=== PATIENT | male | born 1970 | race Two or more races ===

== ENCOUNTER → 2020-02-27 10:43 | Outpatient (BNVA) | payer OTHER, SELFPAY | PROVIDERS: Visit Provider Anesthesiology | DX: E11.610 Type 2 diabetes mellitus with diabetic neuropathic arthropathy (principal); E11.51 Type 2 diabetes mellitus with diabetic peripheral angiopathy without gangrene; M47.812 Spondylosis without myelopathy or radiculopathy, cervical region; M79.7 Fibromyalgia | CPT/HCPCS: 99212 ==

== ENCOUNTER 2020-03-16 15:35 | Outpatient (REF) | payer OTHER, SELFPAY | END 2020-03-16 15:36 | disposition home or self-care (01) | LOC: HO.MRI 15:35 | PROVIDERS: PCP Internal Medicine; Visit Provider Anesthesiology | DX: Z13.89 Encounter for screening for other disorder (principal) ==

== ENCOUNTER 2020-05-10 12:55 | Outpatient (REF) | payer OTHER, SELFPAY ==
--- NOTE | ~2020-05-10 | XR_ITS ---
EXAMINATION: XR HAND, RIGHT XR HAND, LEFT CLINICAL INFORMATION: Bilateral hand pain. COMPARISON: None TECHNIQUE: Each hand is imaged in 3 views. There are a total of 6 views. FINDINGS: Right: There is no fracture, dislocation, destructive process. The bony mineralization is normal. No periarticular demineralization. The carpus shows no joint narrowing or erosive change or chondrocalcinosis. The MCP and interphalangeal joints are unremarkable. Left: There is no fracture, dislocation, destructive process. The bony mineralization is normal. No periarticular demineralization. The carpus shows no joint narrowing or erosive change or chondrocalcinosis. The MCP and interphalangeal joints are unremarkable. XR/XR hand RT min 3V IMPRESSION: Normal bilateral hands.
--- NOTE | ~2020-05-10 | XR_ITS ---
EXAMINATION: XR HAND, RIGHT XR HAND, LEFT CLINICAL INFORMATION: Bilateral hand pain. COMPARISON: None TECHNIQUE: Each hand is imaged in 3 views. There are a total of 6 views. FINDINGS: Right: There is no fracture, dislocation, destructive process. The bony mineralization is normal. No periarticular demineralization. The carpus shows no joint narrowing or erosive change or chondrocalcinosis. The MCP and interphalangeal joints are unremarkable. Left: There is no fracture, dislocation, destructive process. The bony mineralization is normal. No periarticular demineralization. The carpus shows no joint narrowing or erosive change or chondrocalcinosis. The MCP and interphalangeal joints are unremarkable. XR/XR hand LT min 3V IMPRESSION: Normal bilateral hands.
[2020-05-10 14:05] LABS: MANUAL DIFF FLAG NO
[2020-05-10 14:09] LABS: Basophils Absolute Auto 0.1 X10*3/uL (0.0-0.2); Basophils Percent Auto 0.8 % (0-2); Eosinophils Absolute Auto 0.6 X10*3/uL (0.0-0.4); Eosinophils Percent Auto 4.8 % (0-4); Hematocrit 39.7 % (42-52); Hemoglobin 12.5 g/dl (14.0-18.0); Imm Gran Abs Auto 0.07 X10*3/uL (0.00-0.03); Imm Gran Pct Auto 0.6 % (0.0-0.4); Lymphocytes Absolute Auto 2.5 X10*3/uL (1.2-4.9); Lymphocytes Percent Auto 19.5 % (20-40); Mean Corpuscular HGB Conc 31.5 g/dl (31.0-36.0); Mean Corpuscular Hemoglobin 27.7 pg (27.0-33.0); Mean Platelet Volume 10.8 fL (9.4-12.4); Monocytes Absolute Auto 0.7 X10*3/uL (0.1-1.2); Monocytes Percent Auto 5.8 % (2-11); Neutrophils Absolute Auto 8.7 X10*3/uL (2.0-8.3); Neutrophils Percent Auto 68.5 % (45-73); Platelet Count 345 X10*3/uL (160-400); Red Blood Count 4.51 X10*6/uL (4.60-5.80); Red Cell Distribution Width 12.9 % (11.0-16.0); White Blood Count 12.7 X10*3/uL (4.8-10.8)
[2020-05-10 14:43] LABS: Alanine Aminotransferase 19 U/L (0-40); Albumin Level 3.2 g/dL (3.5-5.0); Alkaline Phosphatase 68 U/L (39-117); Anion Gap 15 (12-20); Aspartate Amino Transferase 16 U/L (5-37); Bilirubin Total 0.2 mg/dL (0.0-1.0); Blood Urea Nitrogen 17 mg/dL (9-16); Calcium 8.9 mg/dL (8.4-10.2); Carbon Dioxide 29 mmol/L (22-29); Chloride 102 mmol/L (96-108); Estimated Glomerular Filt Rate > 60; Glucose Random 216 mg/dL (60-115); Potassium 4.5 mmol/L (3.3-5.1); Rheumatoid Factor < 15.0 IU/mL (<15.0); Sodium 141 mmol/L (135-145)
[2020-05-10 15:02] LABS: Erythrocyte Sedimentation Rate 72 MM/HR (0-15)
[2020-05-11 04:56] LABS: HBc Num1 0.04 S/CO (0.00-0.79); Hepatitis A Antibody IgM 0.27 Index (0-0.79); Hepatitis B Core Antibody Nonreactive (Nonreactive); ~HepC Num1 0.07 S/CO (0.00-0.79); ~Hepatitis A Antibody IgM Nonreactive (Nonreactive); ~Hepatitis B Surface Antibody NONREACTIVE (Nonreactive); ~Hepatitis C Antibody Nonreactive (Nonreactive)
[2020-05-11 05:02] LABS: HBsAGNum1 0.18 S/CO (0.00-0.99); Hepatitis B Surface Antigen Negative (Negative)
[2020-05-11 10:07] LABS: Lyme Abs Screen <0.90 index
[2020-05-11 22:17] LABS: Cyclic Citrullinated Peptide <16 UNITS
[2020-05-15 14:01] LABS: Vitamin D 25-OH, D2 <4 ng/mL; Vitamin D 25-OH, D3 9 ng/mL; Vitamin D 25-OH, Total 9 ng/mL (30-100)
== END 2020-05-10 12:56 | disposition home or self-care (01) ==
LOC: HO.LAB 12:55
PROVIDERS: Visit Provider Student in an Organized Health Care Education/Training Program
DX: M25.50 Pain in unspecified joint (principal); F17.210 Nicotine dependence, cigarettes, uncomplicated; Z79.899 Other long term (current) drug therapy
CPT/HCPCS: 36415; 73130; 80053; 82306; 84443; 85025; 85652; 86140; 86200; 86431; 86618; 86704; 86706; 86709; 86803; 87340; 99202

== ENCOUNTER 2020-07-10 06:03 | Outpatient (REF) | payer OTHER, SELFPAY ==
[2020-07-10 11:25] LABS: MANUAL DIFF FLAG NO
[2020-07-10 11:35] LABS: Basophils Absolute Auto 0.1 X10*3/uL (0.0-0.2); Basophils Percent Auto 0.9 % (0-2); Eosinophils Absolute Auto 0.7 X10*3/uL (0.0-0.4); Eosinophils Percent Auto 5.2 % (0-4); Hematocrit 41.6 % (42-52); Imm Gran Pct Auto 0.8 % (0.0-0.4); Lymphocytes Percent Auto 24.1 % (20-40); Mean Corpuscular HGB Conc 31.3 g/dl (31.0-36.0); Mean Corpuscular Hemoglobin 27.4 pg (27.0-33.0); Mean Corpuscular Volume 87.6 fL (80-98); Mean Platelet Volume 11.5 fL (9.4-12.4); Monocytes Absolute Auto 0.8 X10*3/uL (0.1-1.2); Platelet Count 337 X10*3/uL (160-400); Red Blood Count 4.75 X10*6/uL (4.60-5.80); Red Cell Distribution Width 12.9 % (11.0-16.0); White Blood Count 12.6 X10*3/uL (4.8-10.8)
[2020-07-10 11:50] LABS: Alanine Aminotransferase 15 U/L (0-40); Anion Gap 15 (12-20); Aspartate Amino Transferase 15 U/L (5-37); Blood Urea Nitrogen 18 mg/dL (9-16); Calcium 9.4 mg/dL (8.4-10.2); Carbon Dioxide 28 mmol/L (22-29); Chloride 98 mmol/L (96-108); Cholesterol 228 mg/dL; Estimated Glomerular Filt Rate > 60; Glucose Fasting 348 mg/dL (60-99); HDL Cholesterol 27 mg/dL; Potassium 3.9 mmol/L (3.3-5.1); Sodium 137 mmol/L (135-145); Triglycerides 947 mg/dL
== END 2020-07-10 06:04 | disposition home or self-care (01) ==
LOC: HO.HMGCLDS 06:03
PROVIDERS: PCP Internal Medicine; Visit Provider Internal Medicine
DX: E11.65 Type 2 diabetes mellitus with hyperglycemia (principal); E11.40 Type 2 diabetes mellitus with diabetic neuropathy, unspecified; I10 Essential (primary) hypertension; E55.9 Vitamin D deficiency, unspecified; E78.5 Hyperlipidemia, unspecified; S98.139A Complete traumatic amputation of one unspecified lesser toe, initial encounter; Z79.4 Long term (current) use of insulin
CPT/HCPCS: 36415; 80048; 80061; 82306; 84450; 84460; 85025

== ENCOUNTER 2021-02-27 10:35 | Outpatient (REF) | payer OTHER, SELFPAY ==
[2021-02-27 12:12] LABS: Alanine Aminotransferase 19 U/L (0-40); Anion Gap 14 (12-20); Aspartate Amino Transferase 17 U/L (5-37); Blood Urea Nitrogen 19 mg/dL (9-16); Carbon Dioxide 26 mmol/L (22-29); Chloride 104 mmol/L (96-108); Cholesterol 171 mg/dL; Estimated Glomerular Filt Rate > 60; Glucose Fasting 311 mg/dL (60-99); HDL Cholesterol 25 mg/dL; Potassium 4.9 mmol/L (3.3-5.1); Sodium 139 mmol/L (135-145); Triglycerides 415 mg/dL
[2021-02-27 12:35] LABS: Vitamin D 25-OH Total 12.1 ng/mL (>30)
[2021-02-28 10:07] LABS: LDL Cholesterol Direct 68 mg/dL (<100)
== END 2021-02-27 10:36 | disposition home or self-care (01) ==
LOC: HO.HMGCLDS 10:35
PROVIDERS: PCP Internal Medicine; Visit Provider Internal Medicine
DX: E11.40 Type 2 diabetes mellitus with diabetic neuropathy, unspecified (principal); E11.65 Type 2 diabetes mellitus with hyperglycemia; E11.51 Type 2 diabetes mellitus with diabetic peripheral angiopathy without gangrene; E78.2 Mixed hyperlipidemia; I10 Essential (primary) hypertension; E55.9 Vitamin D deficiency, unspecified; Z79.4 Long term (current) use of insulin
CPT/HCPCS: 36415; 80048; 80061; 82306; 83721; 84450; 84460

== ENCOUNTER → 2021-04-17 13:06 | Outpatient (BNVA) | payer OTHER, SELFPAY | PROVIDERS: PCP Internal Medicine; Visit Provider Dietitian, Registered | DX: E11.65 Type 2 diabetes mellitus with hyperglycemia (principal); Z79.4 Long term (current) use of insulin | CPT/HCPCS: 97802 ==

== ENCOUNTER → 2021-07-16 15:22 | Outpatient (BNVA) | payer OTHER, SELFPAY | PROVIDERS: PCP Internal Medicine; Visit Provider Nurse Practitioner Family | DX: M25.50 Pain in unspecified joint (principal); M79.7 Fibromyalgia; E11.40 Type 2 diabetes mellitus with diabetic neuropathy, unspecified; M47.812 Spondylosis without myelopathy or radiculopathy, cervical region; M54.2 Cervicalgia; M62.838 Other muscle spasm; M47.816 Spondylosis without myelopathy or radiculopathy, lumbar region; R29.898 Other symptoms and signs involving the musculoskeletal system | CPT/HCPCS: 99202 ==

== ENCOUNTER → 2021-08-16 11:26 | Outpatient (BNVA) | payer OTHER, SELFPAY | PROVIDERS: PCP Internal Medicine; Visit Provider Internal Medicine Endocrinology, Diabetes & Metabolism | DX: E11.65 Type 2 diabetes mellitus with hyperglycemia (principal); Z79.4 Long term (current) use of insulin | CPT/HCPCS: 82947; 99202 ==

== ENCOUNTER → 2021-08-30 09:33 | Outpatient (BNVA) | payer OTHER, SELFPAY | PROVIDERS: PCP Internal Medicine; Visit Provider Nurse Practitioner Family | DX: M25.50 Pain in unspecified joint (principal); M79.7 Fibromyalgia; E11.40 Type 2 diabetes mellitus with diabetic neuropathy, unspecified; M47.812 Spondylosis without myelopathy or radiculopathy, cervical region; M54.2 Cervicalgia; M62.838 Other muscle spasm; M47.816 Spondylosis without myelopathy or radiculopathy, lumbar region; R29.898 Other symptoms and signs involving the musculoskeletal system | CPT/HCPCS: Q3014 ==

== ENCOUNTER 2021-10-10 10:02 | Outpatient (REF) | payer OTHER, SELFPAY ==
[2021-10-10 12:07] LABS: Alanine Aminotransferase 13 U/L (0-40); Anion Gap 13 (12-20); Aspartate Amino Transferase 15 U/L (5-37); Blood Urea Nitrogen 20 mg/dL (9-16); Calcium 8.8 mg/dL (8.4-10.2); Carbon Dioxide 28 mmol/L (22-29); Chloride 103 mmol/L (96-108); Cholesterol 175 mg/dL; Estimated Glomerular Filt Rate > 60; Glucose Fasting 212 mg/dL (60-99); HDL Cholesterol 29 mg/dL; Potassium 4.5 mmol/L (3.3-5.1); Sodium 139 mmol/L (135-145); Triglycerides 400 mg/dL
[2021-10-10 12:14] LABS: PSA,Total (Free>4and<10) 0.11 ng/mL (0.00-4.00); Vitamin D 25-OH Total 14.1 ng/mL (>30)
[2021-10-10 12:29] LABS: Creatinine Urine 95.93 mg/dL
[2021-10-10 12:33] LABS: Folate 10.3 ng/mL (> or = 4.0); Vitamin B12 210 pg/mL (200-900)
== END 2021-10-10 10:03 | disposition home or self-care (01) ==
LOC: HO.HMGCLDS 10:02
PROVIDERS: PCP Internal Medicine; Visit Provider Internal Medicine
DX: E11.40 Type 2 diabetes mellitus with diabetic neuropathy, unspecified (principal); E11.65 Type 2 diabetes mellitus with hyperglycemia; E55.9 Vitamin D deficiency, unspecified; E78.2 Mixed hyperlipidemia; I10 Essential (primary) hypertension; R29.898 Other symptoms and signs involving the musculoskeletal system; R35.0 Frequency of micturition; Z79.4 Long term (current) use of insulin; Z12.5 Encounter for screening for malignant neoplasm of prostate
CPT/HCPCS: 36415; 80048; 80061; 82043; 82306; 82607; 82746; 84153; 84450; 84460

== ENCOUNTER → 2021-10-11 10:57 | Outpatient (BNVA) | payer OTHER, SELFPAY | PROVIDERS: PCP Internal Medicine; Visit Provider Dietitian, Registered | DX: E11.65 Type 2 diabetes mellitus with hyperglycemia (principal); E11.40 Type 2 diabetes mellitus with diabetic neuropathy, unspecified; Z79.4 Long term (current) use of insulin; Z71.3 Dietary counseling and surveillance | CPT/HCPCS: 97803 ==

== ENCOUNTER → 2021-12-06 11:59 | Outpatient (BNVA) | payer OTHER, SELFPAY | PROVIDERS: PCP Internal Medicine; Visit Provider Internal Medicine Endocrinology, Diabetes & Metabolism | DX: E11.65 Type 2 diabetes mellitus with hyperglycemia (principal); E11.40 Type 2 diabetes mellitus with diabetic neuropathy, unspecified; E11.618 Type 2 diabetes mellitus with other diabetic arthropathy; E11.51 Type 2 diabetes mellitus with diabetic peripheral angiopathy without gangrene; I10 Essential (primary) hypertension; E78.2 Mixed hyperlipidemia; Z79.4 Long term (current) use of insulin | CPT/HCPCS: 82947; 99212 ==

== ENCOUNTER 2021-12-20 10:50 | Outpatient (REF) | payer OTHER, SELFPAY ==
--- NOTE | 2021-12-20 15:23 | PFT_ITS ---
INDICATION: Nicotine use and dyspnea. SPIROMETRY: FEV1 to FVC 75% with an FEV1 of 3.23 L, which is 74% predicted. An FVC of 4.38 L, which is 75% predicted. No significant response to bronchodilators noted. Maximum voluntary ventilation 39% predicted. LUNG VOLUMES: Total lung capacity 104% predicted with residual volume 191% predicted. Expiratory reserve volume 32% predicted. DIFFUSION CAPACITY: DLCO 56% predicted. Flow volume loop, appears to be some protruding of the inspiratory flows with some sawtooth pattern, which is typical of redundant tissue of the upper airway. INTERPRETATION: No obstructive ventilatory defects and no significant response to bronchodilators noted, although the patient does have some small airways disease, which could be secondary to asthma although could also be seen with elevated BMI. The patient has a severe decrease in the maximum voluntary ventilation. This is likely secondary to deconditioning, but also component of worsening dynamic inspiratory capacity from the underlying small airways disease. Neuromuscular conditions should be kept in the differential. His lung volumes do demonstrate significant air trapping and a significant decrease in the expiratory reserve volume secondary to an elevated BMI. The patient does have a moderate diffusion impairment that is out of proportion to the above findings. Need to consider underlying pulmonary vascular conditions. The patient also has some sawtooth pattern to the expiratory flow. So therefore redundant tissue in the upper airways should be considered and a sleep study should be considered if there is significant snoring. Clinical correlation warranted. MD AKSHAT Pretty/JIMMY / [id number]
== END 2021-12-20 10:51 | disposition home or self-care (01) ==
LOC: HO.RESP 10:50
PROVIDERS: PCP Internal Medicine; Visit Provider Internal Medicine
DX: R05.9 Cough, unspecified (principal); F17.200 Nicotine dependence, unspecified, uncomplicated
CPT/HCPCS: 94060; 94727; 94729

== ENCOUNTER → 2021-12-23 10:34 | Outpatient (BNVA) | payer OTHER, SELFPAY | PROVIDERS: PCP Internal Medicine; Visit Provider Registered Nurse Diabetes Educator | DX: E11.40 Type 2 diabetes mellitus with diabetic neuropathy, unspecified (principal) | CPT/HCPCS: 99211 ==

== ENCOUNTER → 2022-01-07 13:57 | Outpatient (BNVA) | payer OTHER, SELFPAY | PROVIDERS: PCP Internal Medicine; Visit Provider Dietitian, Registered | DX: E11.65 Type 2 diabetes mellitus with hyperglycemia (principal); Z79.4 Long term (current) use of insulin; Z71.3 Dietary counseling and surveillance | CPT/HCPCS: 97803 ==

== ENCOUNTER → 2022-03-07 09:03 | Outpatient (BNVA) | payer OTHER, SELFPAY | PROVIDERS: PCP Internal Medicine; Visit Provider Registered Nurse Diabetes Educator | DX: E11.65 Type 2 diabetes mellitus with hyperglycemia (principal); Z79.4 Long term (current) use of insulin | CPT/HCPCS: 99211 ==

== ENCOUNTER 2022-03-10 09:55 | Outpatient (REF) | payer OTHER, SELFPAY ==
--- NOTE | ~2022-03-10 | XR_ITS ---
EXAMINATION: XR CHEST CLINICAL INFORMATION: Chronic obstructive pulmonary disease. COMPARISON: None TECHNIQUE: 2 views of the chest were obtained. FINDINGS: The lungs are well expanded. There is no focal consolidation, edema, or effusion. No pneumothorax. The cardiomediastinal silhouette is within normal limits. No acute osseous abnormality. XR/XR chest 2V IMPRESSION: Clear lungs.
== END 2022-03-10 09:56 | disposition home or self-care (01) ==
LOC: HO.XRAY 09:55
PROVIDERS: PCP Internal Medicine; Visit Provider Internal Medicine
DX: J44.9 Chronic obstructive pulmonary disease, unspecified (principal); R05.3 Chronic cough; F17.210 Nicotine dependence, cigarettes, uncomplicated; G47.33 Obstructive sleep apnea (adult) (pediatric); J30.9 Allergic rhinitis, unspecified
CPT/HCPCS: 71046; 99202

== ENCOUNTER 2022-03-17 09:04 | Outpatient (REF) | payer OTHER, SELFPAY ==
[2022-03-17 12:43] LABS: Creatinine Urine 147.74 mg/dL
[2022-03-17 12:49] LABS: Anion Gap 16 (12-20); Blood Urea Nitrogen 24 mg/dL (9-16); Calcium 8.9 mg/dL (8.4-10.2); Carbon Dioxide 23 mmol/L (22-29); Chloride 106 mmol/L (96-108); Estimated Glomerular Filt Rate > 60; Glucose Random 214 mg/dL (60-115); Potassium 4.8 mmol/L (3.3-5.1); Sodium 140 mmol/L (135-145)
[2022-03-17 13:10] LABS: Microalbum/Creatinine Ratio Ur 1353.7 ug/mg cr; Microalbumin Urine > 2000.0 mg/L
== END 2022-03-17 09:05 | disposition home or self-care (01) ==
LOC: HO.HMGCLDS 09:04
PROVIDERS: Internal Medicine Endocrinology, Diabetes & Metabolism; Visit Provider Internal Medicine
DX: E11.65 Type 2 diabetes mellitus with hyperglycemia (principal); I10 Essential (primary) hypertension; E78.2 Mixed hyperlipidemia; Z79.4 Long term (current) use of insulin
CPT/HCPCS: 36415; 80048; 82043

== ENCOUNTER 2022-03-18 13:48 | Outpatient (REF) | payer OTHER, SELFPAY ==
[2022-03-18 17:00] LABS: Cholesterol 189 mg/dL; HDL Cholesterol 24 mg/dL; Iron 74 mcg/dL (45-160); LDL Cholesterol Calculated 116 mg/dl; Percent Iron Saturation 44 % (15-50); Total Iron Binding Capacity 167 mcg/dL (228-428); Triglycerides 246 mg/dL; Unsaturated Iron Binding 93 ug/dL
[2022-03-21 08:19] LABS: LDL Cholesterol Direct 112 mg/dL (<100)
== END 2022-03-18 13:49 | disposition home or self-care (01) ==
LOC: HO.HMGCLDS 13:48
PROVIDERS: PCP Internal Medicine; Visit Provider Internal Medicine
DX: E11.65 Type 2 diabetes mellitus with hyperglycemia (principal); I10 Essential (primary) hypertension; E78.2 Mixed hyperlipidemia; Z79.4 Long term (current) use of insulin
CPT/HCPCS: 36415; 80061; 83540; 83721

== ENCOUNTER → 2022-04-08 09:53 | Outpatient (BNVA) | payer OTHER, SELFPAY | PROVIDERS: PCP Internal Medicine; Visit Provider Internal Medicine Endocrinology, Diabetes & Metabolism | DX: E11.65 Type 2 diabetes mellitus with hyperglycemia (principal); Z79.4 Long term (current) use of insulin | CPT/HCPCS: 82947; 83036; 99212 ==

== ENCOUNTER → 2022-05-01 09:41 | Outpatient (BNVA) | payer OTHER, SELFPAY | PROVIDERS: PCP Internal Medicine; Visit Provider Internal Medicine | DX: J44.9 Chronic obstructive pulmonary disease, unspecified (principal); R05.3 Chronic cough; J30.9 Allergic rhinitis, unspecified; G47.33 Obstructive sleep apnea (adult) (pediatric); F17.210 Nicotine dependence, cigarettes, uncomplicated | CPT/HCPCS: 99212 ==

== ENCOUNTER → 2022-08-05 12:20 | Outpatient (BNVA) | payer OTHER, SELFPAY | PROVIDERS: PCP Internal Medicine; Visit Provider Dietitian, Registered | DX: E11.65 Type 2 diabetes mellitus with hyperglycemia (principal); Z79.4 Long term (current) use of insulin | CPT/HCPCS: 97803 ==

== ENCOUNTER → 2022-08-12 10:30 | Outpatient (BNVA) | payer OTHER, SELFPAY | PROVIDERS: PCP Internal Medicine; Visit Provider Internal Medicine Endocrinology, Diabetes & Metabolism | DX: E11.65 Type 2 diabetes mellitus with hyperglycemia (principal); Z79.4 Long term (current) use of insulin | CPT/HCPCS: 82947; 83036; 99212 ==

== ENCOUNTER 2022-11-17 09:06 | Outpatient (AMB) | payer OTHER, SELFPAY ==
--- NOTE | 2022-11-17 09:14 | MHC.OFFVIS ---
Intake Vital Signs 11/17/22 09:18 Height 6 ft 2 in BMI Reason not done Patient refused/unable BP 120/82 Blood Pressure Location Rt brachial Position Sitting Pulse 92 Pulse Source Pulse Oximeter Pulse Oximetry (%) 94 Oxygen Delivery Method Room Air Intake Visit Reasons: Obstructive sleep apnea Intake Note: pt is here for follow up and states he thinks he needs a new sleep study, he states he gasps for air, somnolence, gasping, and extreme snorong. He has a lot of phlegm in morning, and when eating he has a lot of burpring that occurs. Allergies No Known Allergies Allergy (Verified 11/17/22 09:26) Medication List - Last Reconciled 11/17/22 by Edmundo Hammond MD aspirin 81 mg PO DAILY atorvastatin 40 mg PO QPM [bed rail As directed] blood sugar diagnostic (FreeStyle Lite Strips) test finger stick 4 times every day blood-glucose meter (FreeStyle Lite Meter kit) As directed tests 4 X/day blood-glucose sensor ([employer] G6 Sensor device) As directed change every 10 days dulaglutide (Trulicity) 1.5 mg (0.5 mL) subcut QWEEK duloxetine 60 mg PO DAILY empagliflozin (Jardiance) 25 mg PO DAILY fluticasone propionate 50 mcg/actuation 1 spray intranasal DAILY FreeStyle Lancets (lancets) 28 gauge topical TID 30 days NS gabapentin 300 mg PO Q8H 30 days insulin aspart U-100 (Novolog FlexPen U-100 Insulin aspart) 22 units subcut TID insulin glargine (Lantus Solostar U-100 Insulin) 48 units (0.48 mL) subcut QPM insulin syringe-needle U-100 (Comfort EZ Insulin Syringe) USE WITH insulin two (2) times a day ipratropium-albuterol 0.5 mg-3 mg(2.5 mg base)/3 mL 3 mL inhalation QID PRN ketoconazole 2% 1 appl topical BID loratadine 10 mg PO DAILY PRN losartan-hydrochlorothiazide 50-12.5 mg 1 tab PO DAILY metformin 1,000 mg PO BID metoprolol tartrate 50 mg PO BID nortriptyline 50 mg PO BEDTIME omega-3 acid ethyl esters (Lovaza) 2 caps PO BID [overbed table with wheels As directed] pen needle, diabetic (BD Ultra-Fine Short Pen Needle) use TID prazosin 1 mg PO BEDTIME [shower bar As directed] Symbicort 160-4.5 mcg/actuation (budesonide-formoterol) 2 puffs inhalation Q12H NS tamsulosin 0.4 mg PO DAILY [wheelchair As directed] [wheelchair ramp Pt is wheelchair bound, needs a ramp to exit the front door and 6 steps to get to the sidewalk] Do you need a note to return to daycare/school/sports/work: No HPI Obstructive sleep apnea HPI Details This gentleman is 52 years old, [place]i speaking, accompanied by his daughter who is the fuller brush man. He is a case of gross obesity, past diagnosis of obstructive sleep apnea, last sleep study at [facility] sleep services, in 2019. He was on able to use the CPAP so CPAP device was taken away. He has not lost any weight. He is complaining of difficulty in sleeping at night and frequent awakening with gasping like feeling, He recognizes that these are symptoms of his sleep apnea, and he is requesting to have a repeat sleep study and consider starting on the CPAP. This gentleman is non ambulatory due to previous partial amputation of both feet, peripheral neuropathy, and also lumbar radiculopathy .He is remaining in the wheelchair. For breathing he uses Symbicort and DuoNeb updrafts. He claims that this combination is not helping much. Still has frequent cough and inability to clear his phlegm, always having irritation in his throat. Smokes 10-12 cigarettes a day. [facility] Medical History (Updated 11/17/22 @ 11:58 by Edmundo Hammond MD) Obesity (BMI 30-39.9) Cigarette smoker motivated to quit Normocytic normochromic anemia COPD (chronic obstructive pulmonary disease) Chronic cough Cigarette smoker Cough Smoker unmotivated to quit RODGER (obstructive sleep apnea) Generalized anxiety disorder 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 Essential hypertension Allergic rhinitis Mixed dyslipidemia Amputation, toe, traumatic Vitamin D deficiency Diabetes mellitus with neuropathy Diabetes mellitus with hyperglycemia, with long-term current use of insulin Osteoarthritis Fibromyalgia Diabetic peripheral angiopathy Spondylosis of cervical spine Diabetic neurogenic arthropathy Surgical History History of foot surgery Family History Father HTN (hypertension) Diabetes Mental health disorder Mother HTN (hypertension) Brother Stroke Social History Household Members: Spouse and Children Housing: Apartment Alcohol intake: never Patient Tobacco Use Status: Current someday Tobacco user Cigarettes Per Day: 3 Years Smoked: 36 e-Cigarette/Vaping Use: Never Used Current occupational status: disabled Cognitive needs: No Hearing needs: No Vision needs: No Review of Systems Const All systems reviewed & are unremarkable except as noted in HPI and below Eyes Reports no additional complaints ENT Reports no additional complaints Card Denies chest pain at rest, Denies irregular heart rhythm and Denies leg edema Resp Reports as per HPI GI Reports no additional complaints Reports no additional complaints Musc Reports abnormal gait (He has weakness of both lower extremities and is non ambulatory, uses wheel), Reports back pain and Reports muscle weakness Skin/Breast Reports system reviewed and no additional complaints, except as documented Neuro Reports abnormal gait (He has weakness of both lower extremities and is non ambulatory, uses wheel) Psych Reports no additional complaints Endo Reports other (Being treated for diabetes mellitus) Aller/Immun Reports no additional complaints Physical Exam Vital Signs: Last Vital Signs Pulse 92 11/17/22 09:18 BP 120/82 11/17/22 09:18 Pulse Ox 94 11/17/22 09:18 Oxygen Delivery Method Room Air 11/17/22 09:18 The patient does appear to be moderately obese with a round face. He is sitting in the wheelchair but able to stand and walk, he appears to be comfortable. Const General: comfortable, no acute distress, alert and awake Orientation/consciousness: patient oriented x3 HEENT Head: Yes normal to inspection General nose exam: No nasal polyps present and No nasal discharge present Face and sinus: Yes sinuses nontender Mouth: oropharynx abnormals (Oropharynx is narrow and crowded, Mallampati class 4) Throat: Yes posterior oropharynx normal Eyes General: appearance normal, both eyes and all related structures Neck Neck: Yes normal visual inspection, Yes no lymphadenopathy, Yes trachea midline and Yes other (Neck circumference 18 in) Thyroid: Thyroid normal Chest Chest palpation & inspection: normal inspection of the chest, normal palpation of entire chest wall and no tenderness Resp Other: Percussion note is resonant, breath sounds are slightly distant especially over the basilar areas. No wheezes rhonchi or crepitations are heard. Cardio Palpation: normal PMI Rate: regular rate Rhythm: regular rhythm Heart sounds: no gallops and no murmurs GI Palpation (GI): Soft to palpation, nontender, No hepatosplenomegaly present and no masses Auscultation: normal bowel sounds Back/Spine/Pelvis Thoracic/Lumbar Spine: thoraco-lumbar ROM limited Skin General skin exam: no rashes or lesions noted Neuro General: patient oriented x3 and No gait normal (Patient is non ambulatory, uses wheelchair) Cranial nerves: Yes CN's II-XII intact bilaterally Extrem Other: Both legs are very thin and weak, peripheral pulses are not palpable. General: Yes no clubbing, cyanosis or edema (Right foot shows previous amputation of the toes.) and Yes no calf tenderness Psych Appearance: grossly normal and well kempt Speech and movement: Normal speech and movement present Assessment & Plan Assessment & Plan (1) COPD (chronic obstructive pulmonary disease): Comment: PATIENT HAS HISTORY OF CHRONIC OBSTRUCTIVE PULMONARY DISEASE, SECONDARY TO HIS LONG-TIME SMOKING. PULMONARY FUNCTION TEST ON 12/20/2021 SHOWED: FVC 69%, FEV1 67%, FEF 2570 565%, AND MVV 39% POST BRONCHODILATOR THERAPY THERE IS SOME IMPROVEMENT IN FEF 25-75 HE DOES NOT SEEM TO HAVE SIGNIFICANT DEGREE OF COPD, BUT WITHOUT THE USE OF SYMBICORT AND DUONEB UPDRAFTS HIS BREATHING GETS WORSE. MAY HAVE BRONCHIAL ASTHMA. TX : SYMBICORT 160-4.52 PUFFS B.I.D. IPRATROPIUM/ALBUTEROL SOLUTION IN THE UPDRAFT Q 6 HOURS P.R.N.. ALBUTEROL HFA 2 PUFFS Q 4-6 HOURS P.R.N. WHEN OUTDOORS Code(s): J44.9 - Chronic obstructive pulmonary disease, unspecified (2) Smoker unmotivated to quit: Comment: Long-time smoker, still smoking 10-12 cigarettes a day. I explained to him that this is the main reason why he has irritation in his throat and an urge to clear his phlegm. He must quit smoking, Offered nicotine gums or patches but he would like. To do it on his own Code(s): F17.200 - Nicotine dependence, unspecified, uncomplicated (3) Allergic rhinitis: Comment: HE DOES HAVE MILD INTERMITTENT NASAL CONGESTION, WHICH MAY BE DUE TO LOW-GRADE ALLERGIC RHINITIS. ADVISED TO CONTINUE USING FLONASE 2 SPRAY EACH NOSTRIL DAILY ,P.R.N. Code(s): J30.9 - Allergic rhinitis, unspecified (4) RODGER (obstructive sleep apnea): Comment: PATIENT DOES HAVE HISTORY OF OBSTRUCTIVE SLEEP APNEA. HE DID NOT TOLERATE THE CPAP THERAPY. CPAP MACHINE WAS TAKEN AWAY IN 2019 HE PRESENTS WITH TYPICAL SYMPTOMS OF RODGER, HE IS NOT ABLE TO SLEEP AT NIGHT WITHOUT WAKING UP FREQUENTLY WITH GASPING LIKE FEELING. HE IS NOW REQUESTING TO DO SOMETHING. HE EXPRESSES THAT HE WILL USE THE CPAP. AT THIS POINT WE WILL TRY TO GET A HOME-BASED SLEEP STUDY ON HIM TO DOCUMENT THE DIAGNOSIS, AND THEN HE WILL BE STARTED ON CPAP THERAPY. Code(s): G47.33 - Obstructive sleep apnea (adult) (pediatric) Orders: Orders RT home sleep study Today E66.9 - Obesity, unspecified, G47.33 - Obstructive sleep apnea (adult) (pediatric) Coding Level of Care Code Est Pt Level 4 (87761) Diagnoses COPD (chronic obstructive pulmonary disease) J44.9 Smoker unmotivated to quit F17.200 Allergic rhinitis J30.9 RODGER (obstructive sleep apnea) G47.33
[2022-11-17 09:18] VITALS: BP 120/82; PULSE 92; O2SAT 94
== END 2022-11-17 09:43 | disposition home or self-care (01) ==
PROVIDERS: PCP Internal Medicine; Visit Provider Internal Medicine
DX: J44.9 Chronic obstructive pulmonary disease, unspecified (principal); F17.200 Nicotine dependence, unspecified, uncomplicated; J30.9 Allergic rhinitis, unspecified; G47.33 Obstructive sleep apnea (adult) (pediatric)
CPT/HCPCS: 99214

== ENCOUNTER → 2022-11-17 09:06 | Outpatient (BNVA) | payer OTHER, SELFPAY | PROVIDERS: PCP Internal Medicine; Visit Provider Internal Medicine | DX: G47.33 Obstructive sleep apnea (adult) (pediatric) (principal); J44.9 Chronic obstructive pulmonary disease, unspecified; J30.9 Allergic rhinitis, unspecified; F17.210 Nicotine dependence, cigarettes, uncomplicated | CPT/HCPCS: 99212 ==

== ENCOUNTER 2022-12-01 08:49 | Outpatient (AMB) | payer OTHER, SELFPAY ==
[2022-12-01 08:55] VITALS: BP 150/90; PULSE 89; O2SAT 95; BMI 36.5
--- NOTE | 2022-12-01 08:55 | MHC.PC.OV ---
Vital Signs 12/01/22 08:55 Height 6 ft 2 in Weight 284 lb 2 oz BMI 36.5 BP 150/90 H Blood Pressure Location Lt brachial Position Sitting Pulse 89 Pulse Source Pulse Oximeter Pulse Oximetry (%) 95 Oxygen Delivery Method Room Air Intake Visit Reasons: [facility] DC 11/23/22 UTI/kidneys Intake Note: pt is here for HDF from [facility] Allergies No Known Allergies Allergy (Verified 12/01/23 00:56) Medication List - Last Reconciled 12/01/22 by Riya Olmos MD amoxicillin-pot clavulanate 875-125 mg 1 tab PO BID aspirin 81 mg PO DAILY atorvastatin 40 mg PO QPM [bed rail As directed] blood-glucose sensor ([employer] G6 Sensor device) As directed change every 10 days dulaglutide (Trulicity) 1.5 mg (0.5 mL) subcut QWEEK duloxetine 60 mg PO DAILY empagliflozin (Jardiance) 25 mg PO DAILY fluticasone propionate 50 mcg/actuation 1 spray intranasal DAILY FreeStyle Lancets (lancets) 28 gauge topical TID 30 days NS gabapentin 300 mg PO Q8H 30 days hydrochlorothiazide 12.5 mg PO QAM insulin aspart U-100 (Novolog FlexPen U-100 Insulin aspart) 22 units subcut TID insulin glargine (Lantus Solostar U-100 Insulin) 48 units (0.48 mL) subcut QPM insulin syringe-needle U-100 (Comfort EZ Insulin Syringe) USE WITH insulin two (2) times a day ipratropium-albuterol 0.5 mg-3 mg(2.5 mg base)/3 mL 3 mL inhalation QID PRN ketoconazole 2% 1 appl topical BID loratadine 10 mg PO DAILY PRN metformin 1,000 mg PO BID metoprolol tartrate 50 mg PO BID nortriptyline 50 mg PO BEDTIME omega-3 acid ethyl esters (Lovaza) 2 caps PO BID [overbed table with wheels As directed] pen needle, diabetic (BD Ultra-Fine Short Pen Needle) use TID prazosin 1 mg PO BEDTIME [shower bar As directed] Symbicort 160-4.5 mcg/actuation (budesonide-formoterol) 2 puffs inhalation Q12H NS tamsulosin 0.4 mg PO DAILY [wheelchair As directed] [wheelchair ramp Pt is wheelchair bound, needs a ramp to exit the front door and 6 steps to get to the sidewalk] Tobacco use date assessed: 03/18/22 Dental Screening Dental Screen Date: 12/01/22 Did you have a dental visit in the last 12 months?: No Did you have a dental problem in the last 6 months where you did not have access to dental care?: No Was dental information given to patient?: No HPI [facility] 11/23/22 UTI/kidneys HPI Details 53-year-old male with past medical history of morbid obesity, chronic kidney disease stage 4, peripheral vascular disease , COPD, obstructive sleep apnea, hypertension, type 2 diabetes mellitus, asthma, hyperlipidemia, here today for follow-up after recent hospital admission treated for acute pyelonephritis, with acute kidney injury. He was discharged on Augmentin, with resolution of symptoms reported. Has no new complaints at present time. [facility] Medical History Intermittent lightheadedness History of CVA with residual deficit Left cervical lymphadenopathy Obesity (BMI 30-39.9) Normocytic normochromic anemia COPD (chronic obstructive pulmonary disease) Cigarette smoker Smoker unmotivated to quit RODGER (obstructive sleep apnea) Generalized anxiety disorder 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 Essential hypertension Allergic rhinitis Mixed dyslipidemia Amputation, toe, traumatic Vitamin D deficiency Diabetes mellitus with neuropathy Diabetes mellitus with hyperglycemia, with long-term current use of insulin Osteoarthritis Fibromyalgia Diabetic peripheral angiopathy Spondylosis of cervical spine Diabetic neurogenic arthropathy Surgical History History of foot surgery Family History Father HTN (hypertension) Diabetes Mental health disorder Mother HTN (hypertension) Brother Stroke Social History Household Members: Spouse and Children Housing: Apartment Alcohol intake: never Patient Tobacco Use Status: Current someday Tobacco user Cigarettes Per Day: 3 Years Smoked: 36 e-Cigarette/Vaping Use: Never Used Current occupational status: disabled Cognitive needs: No Hearing needs: No Vision needs: No Questionnaire PHQ-9 Over the last 2 weeks, how often have you been bothered by any of the following problems? Depression Screening Interpretation: Positive Depression Screening Follow-up: Existing condition, In treatment and Community Mental Health Worker F/U Depression Screening Done: Yes Source: Developed by Drs. Zachary Luis, Daphnie Nina, Froylan Jose and colleagues, with an educational samuel from [employer]. Thrive Questionnaire Date Thrive assessed: 03/18/22 DEBORAH-7 AMB Questionnaire DEBORAH-7 Date DEBORAH - 7 assessed: 03/18/22 Source: Developed by Drs. Zachary Luis, Daphnie Nina, Froylan Jose and colleagues, with an educational samuel from [employer]. Review of Systems Const All systems reviewed & are unremarkable except as noted in HPI and below Eyes Reports no additional complaints ENT Reports no additional complaints Card Denies chest pain at rest and Denies irregular heart rhythm Resp Reports as per HPI GI Reports no additional complaints Reports no additional complaints Musc Reports abnormal gait (He has weakness of both lower extremities and is non ambulatory, uses wheel), Reports back pain and Reports muscle weakness Skin/Breast Reports system reviewed and no additional complaints, except as documented Neuro Reports abnormal gait (He has weakness of both lower extremities and is non ambulatory, uses wheel) Psych Reports no additional complaints Endo Reports other (Being treated for diabetes mellitus) Jomar/Lymph Reports no additional complaints Aller/Immun Reports no additional complaints Physical exam (Primary Care) Vital Signs: Last Vital Signs Pulse 89 12/01/22 08:55 BP 170/90 H 12/01/22 08:55 Pulse Ox 95 12/01/22 08:55 Oxygen Delivery Method Room Air 12/01/22 08:55 BMI result Body Mass Index 36.5 Tobacco/Smoking Status: Tobacco use Status Tobacco use date assessed 03/18/22 12/01/22 08:56 Patient Tobacco Use Status Current someday Tobacco 12/01/22 08:56 e-Cigarette/Vaping Use Never Used 12/01/22 08:56 Depression Screening Interpretation: Positive Depression Screening Follow-up: Existing condition, In treatment and Community Mental Health Worker F/U Thrive Assessment: Date of Thrive Assessment Date Thrive assessed 03/18/22 12/01/22 08:56 Const Other: Daughter accompanying patient General: no acute distress and alert Nutritional Appearance: obese morbidly obese Orientation/consciousness: patient oriented x3 Limitations: wheelchair HENMT Ears: external ears normal, TM's normal bilaterally and EAC's normal General nose exam: Normal external nose present and No nasal discharge present Mouth: Normal oral and palatal mucosa present, oropharynx normal and moist mucous membranes Eyes General: appearance normal, both eyes and all related structures Neck Neck: Yes full ROM, Yes no lymphadenopathy and Yes supple Chest Chest palpation & inspection: normal inspection of the chest Resp Effort & Inspection: normal respiratory effort and able to speak in complete sentences Auscultation: clear to auscultation bilaterally Cardio Rate: regular rate Rhythm: regular rhythm Heart sounds: S1 normal heart sound present and S2 normal heart sound present GI Palpation (GI): Soft to palpation, nontender and no masses Auscultation: normal bowel sounds General: Yes no CVA tenderness Back/Spine/Pelvis Back: no CVA tenderness and No back tenderness Skin General skin exam: no rashes or lesions noted Neuro General: patient oriented x3 and no focal motor deficits Cranial nerves: Yes CN's II-XII intact bilaterally Cognition (Neuro): normal cognition Extrem General: Yes full ROM, Yes no pedal edema, Yes no calf tenderness and Yes amputation noted (For toes on the right, only the 5th toe remaining) Psych Appearance: grossly normal and well kempt Mental Status: mental status grossly normal Speech and movement: Normal speech and movement present Affect: normal affect Attitude: cooperative Thought process: Normal thought process present Thought content: Normal thought content present Coding Level of Care Code Est Pt Level 4 (61576) Complex EM visit Add On G2211 Diagnoses Essential hypertension I10 Mixed dyslipidemia E78.2 Type 2 diabetes mellitus with diabetic neuropathy, without long-term current use of insulin E11.40 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
== END 2022-12-01 15:37 | disposition home or self-care (01) ==
PROVIDERS: PCP Internal Medicine; Visit Provider Internal Medicine
DX: I10 Essential (primary) hypertension (principal); E11.40 Type 2 diabetes mellitus with diabetic neuropathy, unspecified; E78.2 Mixed hyperlipidemia; F17.200 Nicotine dependence, unspecified, uncomplicated; Z12.5 Encounter for screening for malignant neoplasm of prostate; Z87.448 Personal history of other diseases of urinary system; E66.9 Obesity, unspecified; Z68.36 Body mass index [BMI] 36.0-36.9, adult
CPT/HCPCS: 99499

== ENCOUNTER 2022-12-01 09:39 | Outpatient (REF) | payer OTHER, SELFPAY ==
[2022-12-01 13:07] LABS: Vitamin D 25-OH Total 14.7 ng/mL (>30)
[2022-12-01 13:09] LABS: Anion Gap 15 (12-20)
[2022-12-01 13:13] LABS: Alanine Aminotransferase 9 U/L (0-40); Alkaline Phosphatase 65 U/L (39-117); Aspartate Amino Transferase 12 U/L (5-37); Bilirubin Total 0.3 mg/dL (0.0-1.0); Blood Urea Nitrogen 31 mg/dL (9-16); Carbon Dioxide 22 mmol/L (22-29); Chloride 108 mmol/L (96-108); Cholesterol 185 mg/dL (<200); Estimated Glomerular Filt Rate 32; Glucose Fasting 213 mg/dL (60-99); HDL Cholesterol 24 mg/dL (>40); LDL Cholesterol Calculated 112 mg/dL (<100); Potassium 4.2 mmol/L (3.3-5.1); Sodium 141 mmol/L (135-145); Triglycerides 246 mg/dL (<150)
== END 2022-12-01 09:40 | disposition home or self-care (01) ==
LOC: HO.HMGCLDS 09:39
PROVIDERS: PCP Internal Medicine; Visit Provider Internal Medicine
DX: Z12.5 Encounter for screening for malignant neoplasm of prostate (principal); E66.9 Obesity, unspecified; I10 Essential (primary) hypertension; E78.2 Mixed hyperlipidemia; E11.40 Type 2 diabetes mellitus with diabetic neuropathy, unspecified; E55.9 Vitamin D deficiency, unspecified; F17.200 Nicotine dependence, unspecified, uncomplicated
CPT/HCPCS: 36415; 80053; 80061; 82306; 84153

== ENCOUNTER 2022-12-09 14:02 | Outpatient (AMB) | payer OTHER, SELFPAY ==
[2022-12-09 14:15] VITALS: BP 148/86; PULSE 89
--- NOTE | 2022-12-09 14:15 | MHC.OFFVIS ---
Intake Vital Signs 12/09/22 14:15 Height 6 ft 2 in BP 148/86 H Blood Pressure Location Rt brachial Position Sitting Pulse 89 Pulse Source Pulse Oximeter Intake Visit Reasons: DM Intake Note: Patient present today to follow up on Type 2 Diabetes Mellitus. 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 Fib[employer]lass Boat Assembly Supervisor Language: Utility Maintenance Worker Name: [facility] staff Information Interpreted: non-clinical & clinical Accompanied by: Daughter Allergies No Known Allergies Allergy (Verified 12/09/22 14:32) Medication List - Last Reviewed 12/09/22 by Torrie Watkins amlodipine 5 mg PO DAILY amoxicillin-pot clavulanate 875-125 mg 1 tab PO BID aspirin 81 mg PO DAILY atorvastatin 40 mg PO QPM [bed rail As directed] blood-glucose sensor (Dexcom G6 Sensor device) As directed change every 10 days dulaglutide (Trulicity) 1.5 mg (0.5 mL) subcut QWEEK duloxetine 60 mg PO DAILY empagliflozin (Jardiance) 25 mg PO DAILY fluticasone propionate 50 mcg/actuation 1 spray intranasal DAILY FreeStyle Lancets (lancets) 28 gauge topical TID 30 days NS gabapentin 300 mg PO Q8H 30 days hydrochlorothiazide 12.5 mg PO QAM insulin aspart U-100 (Novolog FlexPen U-100 Insulin aspart) 22 units subcut TID insulin glargine (Lantus Solostar U-100 Insulin) 48 units (0.48 mL) subcut QPM insulin syringe-needle U-100 (Comfort EZ Insulin Syringe) USE WITH insulin two (2) times a day ipratropium-albuterol 0.5 mg-3 mg(2.5 mg base)/3 mL 3 mL inhalation QID PRN ketoconazole 2% 1 appl topical BID loratadine 10 mg PO DAILY PRN metoprolol tartrate 50 mg PO BID nortriptyline 50 mg PO BEDTIME omega-3 acid ethyl esters (Lovaza) 2 caps PO BID [overbed table with wheels As directed] pen needle, diabetic (BD Ultra-Fine Short Pen Needle) use TID prazosin 1 mg PO BEDTIME [shower bar As directed] Symbicort 160-4.5 mcg/actuation (budesonide-formoterol) 2 puffs inhalation Q12H NS tamsulosin 0.4 mg PO DAILY [wheelchair As directed] [wheelchair ramp Pt is wheelchair bound, needs a ramp to exit the front door and 6 steps to get to the sidewalk] HPI HPI Comments History of Present Illness Details 52 YO M who is seen in consultation for T2DM at the request of PCP. Initially diagnosed with T2DM in 34 yrs old . Was initially started on treatment with metformin . Current regimen metformin 1000 mg BID ( not taking because of kidney infection) Jardiance 25 mg QD Trulicity 1.5 mg Qwkly Lantus 48 units Novolog 22 units premeals . Dexcom download shows average glucose to be 188 with GMIi of 7.8% and standard deviation of 48. Dexcom is 100% of the time 46% range with 44% hyperglycemia 9% very hyperglycemic and no hypoglycemia . Pattern shows persistent hyperglycemia throughout the day with mild spike in glucose after breakfast and dinner occasionally hypoglycemia overnight Family history of T2DM in father and brother have Type 2 DM. Has eyes checked yearly, last eye exam last yr needs to make appt , denies retinopathy. Has neuropathy, last foot exam , sees podiatry. Denies nephropathy, on ANDREW/ARB. Has HLD, on statin. [Denies] CAD. Had diabetes education. 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 Essential hypertension Allergic rhinitis Mixed dyslipidemia Amputation, toe, traumatic Vitamin D deficiency Diabetes mellitus with neuropathy Diabetes mellitus with hyperglycemia, with long-term current use of insulin Osteoarthritis Fibromyalgia Diabetic peripheral angiopathy Spondylosis of cervical spine Diabetic neurogenic arthropathy Surgical History History of foot surgery Family History Father HTN (hypertension) Diabetes Mental health disorder Mother HTN (hypertension) Brother Stroke Social History Household Members: Spouse and Children Housing: Apartment Alcohol intake: never Patient Tobacco Use Status: Current someday Tobacco user Cigarettes Per Day: 3 Years Smoked: 36 e-Cigarette/Vaping Use: Never Used Current occupational status: disabled Cognitive needs: No Hearing needs: No Vision needs: No Physical Exam Vital Signs: Last Vital Signs Pulse 89 12/09/22 14:15 BP 148/86 H 12/09/22 14:15 Absence of Cushingoid features. Absence of acromegalic features. Neck exam reveals nl size thyroid about 15 gms. No thyroid nodules palpable. No carotid bruits present. Lungs CTA. Heart S1 S2, Reg R/R. No M/R/ G. Skin exam reveals absence of vitiligo or acanthosis nigricans. Abdominal exam reveals Soft NT/ND with NA BS. No organomegaly present. Neck Other: . Extrem Other: Visual exam of foot performed. No ulcerations or open lesions. There is amputation of the 1st 4 digits in the right lower extremity. No onchomycosis, no callouses.Pulses 1- distally Sensation decreased to monofilament exam. Vibratory sensation sensed is decreased with 128 Hz tuning fork. R foot banadaged and followed by wound clinic Results AMB Hemoglobin A1c AMB Hemoglobin A1c 7.5 % Last Edit by Torrie Watkins on 12/09/22 15:07 Results Reviewed Results Reviewed: 12/09/22 14:27 Glucose, Whole Blood Routine Laboratory Last Values Glucose (Clinic) 257 mg/dL (60-115) H 12/09/22 14:27 Hgb A1c (Clinic) 7.5 % (4.0-6.0) H 12/09/22 14:43 Assessment & Plan Assessment & Plan (1) Diabetes mellitus with hyperglycemia, with long-term current use of insulin: Code(s): E11.65 - Type 2 diabetes mellitus with hyperglycemia; Z79.4 - terminologist (current) use of insulin Qualifiers: Diabetes mellitus type: type 2 Qualified Code(s): E11.65 - Type 2 diabetes mellitus with hyperglycemia; Z79.4 - [facility] (current) use of insulin Plan: This is a 52-year-old male with a history of type 2 diabetes being treated metformin, Jardiance, Januvia and basal-bolus insulin with fair glycemic control and known microvascular complications namely neuropathy. Plan is to increase the Novolog to 30 units before breakfast and dinner and decrease Lantus to 40 units for Will have patient follow up with telehealth nurse educator. Follow-up with wound clinic . He had significant decline in kidney function and was referred to Nephrology by primary care but has not made an appointment yet. I urged his daughter and patient to make an appointment with Nephrology as soon as possible Orders: Orders AMB Hemoglobin A1c Today E11.65 - Type 2 diabetes mellitus with hyperglycemia, Z79.4 - terminologist (current) use of insulin Coding Level of Care Code Est Pt Level 4 (44899) Diagnoses Type 2 diabetes mellitus with hyperglycemia, with long-term current use of insulin E11.65; Z79.4 Diabetes mellitus type: type 2
[2022-12-09 14:32] LABS: Glucose, Whole Blood 257 mg/dL (60-115)
== END 2022-12-09 14:55 | disposition home or self-care (01) ==
PROVIDERS: PCP Internal Medicine; Visit Provider Internal Medicine Endocrinology, Diabetes & Metabolism
DX: E11.65 Type 2 diabetes mellitus with hyperglycemia (principal); Z79.4 Long term (current) use of insulin
CPT/HCPCS: 99214

== ENCOUNTER → 2022-12-09 14:02 | Outpatient (BNVA) | payer OTHER, SELFPAY | PROVIDERS: PCP Internal Medicine; Visit Provider Internal Medicine Endocrinology, Diabetes & Metabolism | DX: E11.65 Type 2 diabetes mellitus with hyperglycemia (principal); Z79.4 Long term (current) use of insulin | CPT/HCPCS: 82947; 83036; 99212 ==

== ENCOUNTER 2022-12-17 14:30 | Outpatient (AMB) | payer OTHER, SELFPAY ==
[2022-12-17 14:41] VITALS: BP 140/80; PULSE 104; O2SAT 95; BMI 35.9
--- NOTE | 2022-12-17 14:41 | HO.NEPHOV_ITS ---
Intake Vital Signs 12/17/22 14:41 Height 6 ft 2 in Weight 280 lb BMI 35.9 BP 140/80 H Blood Pressure Location Rt brachial Position Sitting Pulse 104 H Pulse Source Pulse Oximeter Pulse Oximetry (%) 95 Oxygen Delivery Method Room Air Intake Visit Reasons: CKD/Type 2 dm with diabetic neuropathy Dry Chain Puller Required: Yes Dry Chain Puller Name: MALIA - PTS SON Information Interpreted: non-clinical & clinical Accompanied by: Son Allergies No Known Allergies Allergy (Verified 12/17/22 14:42) HPI HPI Comments History of Present Illness Details Ana is a middle age man with a history of longstanding diabetes mellitus since age 35, obesity and hypertension was found to have chronic kidney disease with a serum creatinine of 2.17 as of November 2022. He was also found proteinuria of 1353 back in February of 2022. He has been referred here for evaluation of CKD and proteinuria. He was accompanied by his son who was helpful in translation. Assessment & Plan Assessment & Plan (1) Obesity (BMI 30-39.9): Code(s): E66.9 - Obesity, unspecified (2) Essential hypertension: Code(s): I10 - Essential (primary) hypertension (3) Diabetes mellitus: Code(s): E11.9 - Type 2 diabetes mellitus without complications Qualifiers: Diabetes mellitus type: type 2 (4) Proteinuria due to type 2 diabetes mellitus: Code(s): E11.29 - Type 2 diabetes mellitus with other diabetic kidney complication; R80.9 - Proteinuria, unspecified (5) CKD (chronic kidney disease) stage 3, GFR 30-59 ml/min: Code(s): N18.30 - Chronic kidney disease, stage 3 unspecified Qualifiers: Chronic kidney disease stage 3 subtype: stage 3a (GFR 45-59) Qualified Code(s): N18.31 - Chronic kidney disease, stage 3a Plan Ana he is a middle-aged man with longstanding diabetes mellitus obesity and hypertension currently has stage IIIB CKD with nonnephrotic range proteinuria. CKD is most likely due to diabetic hypertensive kidney disease. Non nephrotic range proteinuria. Differential diagnosis would certainly include obesity related FSGS versus other nondiabetic causes for proteinuria. I have initiated a workup for CKD and proteinuria and as outlined below. Based on this he may even need a kidney biopsy for further diagnosis to rule out non diabetic causes. In the meantime the goal is to slow the progression of renal disease. We discussed importance of tight control of blood pressure and blood sugar to sl ow the progression of disease. Continue with ARB for renal protection. He will benefit from SGLT 2 inhibitors Hypertension Goal is to maintain the blood pressure less than 130/80 He needs weight loss. Discussed importance of low-sodium diet. History of smoking Discussed smoking cessation. Mild anemia in the past. Last hemoglobin was 2 years ago. Repeat CBC has been ordered. All his questions were answered Orders: Orders Electrolytes 12/17/22 E11. - Type 2 diabetes mellitus with other diabetic kidney complication, N18.30 - Chronic kidney disease, stage 3 unspecified, R80.9 - Proteinuria, unspecified Calcium 12/17/22. - Type 2 diabetes mellitus with other diabetic kidney complication, N18.30 - Chronic kidney disease, stage 3 unspecified, R80.9 - Proteinuria, unspecified Total Protein Urine Random 12/17/22. - Type 2 diabetes mellitus with other diabetic kidney complication, N18.30 - Chronic kidney disease, stage 3 unspecified, R80.9 - Proteinuria, unspecified Creatinine Urine 12/17/22. - Type 2 diabetes mellitus with other diabetic kidney complication, N18.30 - Chronic kidney disease, stage 3 unspecified, R80.9 - Proteinuria, unspecified SENIA Reflex Titer and Pattern 12/17/22 - Type 2 diabetes mellitus with other diabetic kidney complication, N18.30 - Chronic kidney disease, stage 3 unspecified, R80.9 - Proteinuria, unspecified Complement C3 12/17/22. - Type 2 diabetes mellitus with other diabetic kidney complication, N18.30 - Chronic kidney disease, stage 3 unspecified, R80.9 - Proteinuria, unspecified Protein Electrophoresis, Serum 12/17/22. - Type 2 diabetes mellitus with other diabetic kidney complication, N18.30 - Chronic kidney disease, stage 3 unspecified, R80.9 - Proteinuria, unspecified US renal BI 12/17/22. - Type 2 diabetes mellitus with other diabetic kidney complication, N18.30 - Chronic kidney disease, stage 3 unspecified, R80.9 - Proteinuria, unspecified Blood Urea Nitrogen 12/17/22 E11. - Type 2 diabetes mellitus with other diabetic kidney complication, N18.30 - Chronic kidney disease, stage 3 unspecified, R80.9 - Proteinuria, unspecified Creatinine 12/17/22 E11.29 - Type 2 diabetes mellitus with other diabetic kidney complication, N18.30 - Chronic kidney disease, stage 3 unspecified, R80.9 - Proteinuria, unspecified Neutrophil Cytoplasma Ab 12/17/22 E11.29 - Type 2 diabetes mellitus with other diabetic kidney complication, N18.30 - Chronic kidney disease, stage 3 unspecified, R80.9 - Proteinuria, unspecified Proteinase 3 PR3 Antibodies 12/17/22 E11. - Type 2 diabetes mellitus with other diabetic kidney complication, N18.30 - Chronic kidney disease, stage 3 unspecified, R80.9 - Proteinuria, unspecified Complement C4 12/17/22 E11. - Type 2 diabetes mellitus with other diabetic kidney complication, N18.30 - Chronic kidney disease, stage 3 unspecified, R80.9 - Proteinuria, unspecified UA and rflx microscopic 12/17/22 E11. - Type 2 diabetes mellitus with other diabetic kidney complication, N18.30 - Chronic kidney disease, stage 3 unspecified, R80.9 - Proteinuria, unspecified Coding Level of Care Code Est Pt Level 5 (79676) Diagnoses Obesity (BMI 30-39.9) E66.9 Essential hypertension I10 Diabetes mellitus E11.9 Diabetes mellitus type: type 2 Proteinuria due to type 2 diabetes mellitus E11.; R80.9 Stage 3a chronic kidney disease N18.31 Chronic kidney disease stage 3 subtype: stage 3a (GFR 45-59) [facility] Medical History (Updated 12/18/22 @ 12:55 by Cole Del Valle MD) Obesity (BMI 30-39.9) Normocytic normochromic anemia COPD (chronic obstructive pulmonary disease) Chronic cough Cigarette smoker Cough Smoker unmotivated to quit RODGER (obstructive sleep apnea) Generalized anxiety disorder 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 Essential hypertension Allergic rhinitis Mixed dyslipidemia Amputation, toe, traumatic Vitamin D deficiency Diabetes mellitus with neuropathy Diabetes mellitus with hyperglycemia, with long-term current use of insulin Osteoarthritis Fibromyalgia Diabetic peripheral angiopathy Spondylosis of cervical spine Diabetic neurogenic arthropathy Surgical History (Updated 12/18/22 @ 12:54 by Cole Del Valle MD) History of foot surgery Family History Father HTN (hypertension) Diabetes Mental health disorder Mother HTN (hypertension) Brother Stroke Social History Household Members: Spouse and Children Housing: Apartment Alcohol intake: never Patient Tobacco Use Status: Current someday Tobacco user Cigarettes Per Day: 3 Years Smoked: 36 e-Cigarette/Vaping Use: Never Used Current occupational status: disabled Cognitive needs: No Hearing needs: No Vision needs: No
== END 2022-12-17 15:07 | disposition home or self-care (01) ==
PROVIDERS: PCP Internal Medicine; Referring Provider Internal Medicine; Visit Provider Internal Medicine Hypertension Specialist
DX: I12.9 Hypertensive chronic kidney disease with stage 1 through stage 4 chronic kidney disease, or unspecified chronic kidney disease (principal); E11.22 Type 2 diabetes mellitus with diabetic chronic kidney disease; N18.31 Chronic kidney disease, stage 3a; R80.9 Proteinuria, unspecified; E66.9 Obesity, unspecified
CPT/HCPCS: 99204

== ENCOUNTER → 2022-12-17 14:30 | Outpatient (BNVA) | payer OTHER, SELFPAY | PROVIDERS: PCP Internal Medicine; Referring Provider Internal Medicine; Visit Provider Internal Medicine Hypertension Specialist | DX: E11.22 Type 2 diabetes mellitus with diabetic chronic kidney disease (principal); I12.9 Hypertensive chronic kidney disease with stage 1 through stage 4 chronic kidney disease, or unspecified chronic kidney disease; N18.31 Chronic kidney disease, stage 3a; E66.9 Obesity, unspecified; Z68.35 Body mass index [BMI] 35.0-35.9, adult | CPT/HCPCS: 99202 ==

== ENCOUNTER 2022-12-29 12:57 | Outpatient (AMB) | payer OTHER, SELFPAY ==
--- NOTE | 2022-12-29 13:48 | MHC.PC.OV ---
Vital Signs 12/29/22 13:51 BMI Reason not done Patient refused/unable BP 120/88 Blood Pressure Location Rt brachial Position Sitting Pulse 88 Pulse Source Pulse Oximeter Pulse Oximetry (%) 96 Oxygen Delivery Method Room Air Intake Visit Reasons: PE Intake Note: Pt is here today for his PE Allergies No Known Allergies Allergy (Verified 12/01/23 00:56) Medication List - Last Reconciled 12/29/22 by Riya Olmos MD amlodipine 5 mg PO DAILY aspirin 81 mg PO DAILY atorvastatin 40 mg PO QPM [bed rail As directed] blood-glucose sensor (Keepstream G6 Sensor device) As directed change every 10 days dulaglutide (Trulicity) 1.5 mg (0.5 mL) subcut QWEEK duloxetine 60 mg PO DAILY empagliflozin (Jardiance) 25 mg PO DAILY fluticasone propionate 50 mcg/actuation 1 spray intranasal DAILY FreeStyle Lancets (lancets) 28 gauge topical TID 30 days NS gabapentin 300 mg PO Q8H 30 days hydrochlorothiazide 12.5 mg PO QAM insulin aspart U-100 (Novolog FlexPen U-100 Insulin aspart) 22 units subcut TID insulin glargine (Lantus Solostar U-100 Insulin) 48 units (0.48 mL) subcut QPM insulin syringe-needle U-100 (Comfort EZ Insulin Syringe) USE WITH insulin two (2) times a day ipratropium-albuterol 0.5 mg-3 mg(2.5 mg base)/3 mL 3 mL inhalation QID PRN ketoconazole 2% 1 appl topical BID loratadine 10 mg PO DAILY PRN metoprolol tartrate 50 mg PO BID nortriptyline 50 mg PO BEDTIME omega-3 acid ethyl esters (Lovaza) 2 caps PO BID [overbed table with wheels As directed] pen needle, diabetic (BD Ultra-Fine Short Pen Needle) use TID prazosin 1 mg PO BEDTIME [shower bar As directed] Symbicort 160-4.5 mcg/actuation (budesonide-formoterol) 2 puffs inhalation Q12H NS tamsulosin 0.4 mg PO DAILY [wheelchair As directed] [wheelchair ramp Pt is wheelchair bound, needs a ramp to exit the front door and 6 steps to get to the sidewalk] Tobacco use date assessed: 12/29/22 Dental Screening Dental Screen Date: 12/29/22 Did you have a dental visit in the last 12 months?: No Was dental information given to patient?: Patient has dentist HPI PE HPI Details Details 53-year-old male with past medical history of morbid obesity, chronic kidney disease stage 4, peripheral vascular disease , COPD, obstructive sleep apnea, hypertension, type 2 diabetes mellitus, asthma, hyperlipidemia, , history of CVA with residual deficit, here today for his physical exam. He declines getting screened for colon cancer including Cologuard testing. Has had COVID vaccines in the past but does not want to get a COVID booster and does not want to get vaccinated against the flu. Has had 1 dose of pneumococcal vaccin in the past and is up-to-date with his Tdap. He is up-to-date with his eye exams goes yearly, but does not see a tan room supervisor. Complains of pain and stiffness in left shoulder, with decreased range of motion especially on abduction of left arm no history of fall, has been taking Tylenol which affords no not much improvement. Has been feeling some lumps on anterior neck area, nontender to palpation denies any sore throat, difficulty swallowing, afebrile. [facility] Medical History Intermittent lightheadedness History of CVA with residual deficit Left cervical lymphadenopathy Obesity (BMI 30-39.9) Normocytic normochromic anemia COPD (chronic obstructive pulmonary disease) Cigarette smoker Smoker unmotivated to quit RODGER (obstructive sleep apnea) Generalized anxiety disorder 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 Essential hypertension Allergic rhinitis Mixed dyslipidemia Amputation, toe, traumatic Vitamin D deficiency Diabetes mellitus with neuropathy Diabetes mellitus with hyperglycemia, with long-term current use of insulin Osteoarthritis Fibromyalgia Diabetic peripheral angiopathy Spondylosis of cervical spine Diabetic neurogenic arthropathy Surgical History History of foot surgery Family History Father HTN (hypertension) Diabetes Mental health disorder Mother HTN (hypertension) Brother Stroke Social History Household Members: Spouse and Children Housing: Apartment Alcohol intake: never Patient Tobacco Use Status: Current someday Tobacco user Cigarettes Per Day: 3 Years Smoked: 36 e-Cigarette/Vaping Use: Never Used Current occupational status: disabled Cognitive needs: No Hearing needs: No Vision needs: No Questionnaire Thrive Questionnaire Date Thrive assessed: 03/18/22 AUDIT C Alcohol Use Questionnaire (AUDIT-C) 1. How often do you have a drink containing alcohol?: Never Total Score: 0 DEBORAH-7 AMB Questionnaire DEBORAH-7 Date DEBORAH - 7 assessed: 03/18/22 Source: Developed by Drs. Zachary Luis, Daphnie Nina, Froylan Jose and colleagues, with an educational samuel from [employer]. Review of Systems Const All systems reviewed & are unremarkable except as noted in HPI and below Eyes Details: Sees [facility] senior quality methods specialist for diabetes retinopathy screening Reports no additional complaints ENT Reports no additional complaints Card Denies chest pain at rest, Denies irregular heart rhythm and Denies leg edema Resp Reports as per HPI GI Reports no additional complaints Reports no additional complaints Musc Reports abnormal gait (He has weakness of both lower extremities and is non ambulatory, uses wheel), Reports back pain and Reports muscle weakness Skin/Breast Reports system reviewed and no additional complaints, except as documented Neuro Reports abnormal gait (He has weakness of both lower extremities and is non ambulatory, uses wheel) Psych Reports no additional complaints Endo Reports other (Being treated for diabetes mellitus) Jomar/Lymph Denies easy bleeding and Reports easy bruising Aller/Immun Reports no additional complaints Physical exam (Primary Care) Vital Signs: Last Vital Signs Pulse 88 12/29/22 13:51 BP 120/88 12/29/22 13:51 Pulse Ox 96 12/29/22 13:51 Oxygen Delivery Method Room Air 12/29/22 13:51 Tobacco/Smoking Status: Tobacco use Status Tobacco use date assessed 12/29/22 12/29/22 13:54 Patient Tobacco Use Status Current someday Tobacco 12/29/22 13:49 e-Cigarette/Vaping Use Never Used 12/29/22 13:49 Thrive Assessment: Date of Thrive Assessment Date Thrive assessed 03/18/22 12/29/22 13:49 Const Other: Daughter accompanying patient General: no acute distress and alert Nutritional Appearance: obese morbidly obese Orientation/consciousness: patient oriented x3 Limitations: wheelchair HENMT Ears: external ears normal, TM's normal bilaterally and EAC's normal General nose exam: Normal external nose present and No nasal discharge present Mouth: Normal oral and palatal mucosa present, oropharynx normal and moist mucous membranes Eyes General: appearance normal, both eyes and all related structures Neck Neck: Yes full ROM, Yes no lymphadenopathy and Yes supple Chest Chest palpation & inspection: normal inspection of the chest Resp Effort & Inspection: normal respiratory effort and able to speak in complete sentences Auscultation: clear to auscultation bilaterally Cardio Rate: regular rate Rhythm: regular rhythm Heart sounds: S1 normal heart sound present and S2 normal heart sound present GI Palpation (GI): Soft to palpation, nontender and no masses Auscultation: normal bowel sounds General: Yes no CVA tenderness Male General Exam: Yes normal external exam Back/Spine/Pelvis Back: no CVA tenderness and No back tenderness Skin General skin exam: no rashes or lesions noted Neuro General: patient oriented x3 and no focal motor deficits Cranial nerves: Yes CN's II-XII intact bilaterally Cognition (Neuro): normal cognition Extrem General: Yes full ROM, Yes no pedal edema, Yes no calf tenderness, Yes amputation noted (For toes on the right, only the 5th toe remaining) and Yes edema (Pitting edema in both lower extremity) Psych Appearance: grossly normal and well kempt Mental Status: mental status grossly normal Speech and movement: Normal speech and movement present Affect: normal affect Attitude: cooperative Thought process: Normal thought process present Thought content: Normal thought content present Results Reviewed Results Reviewed: SPEC : [id number] MARGY: 12/01/22 STATUS: COMP REQ : [id number] RECD: 12/01/[address]: Riya Olmos MD COMP: 12/01/221307 ENTERED: 12/01/22 [facility]: ORDERED: CMP Fast, Lipid Panel, Vitamin D 25-OH Test Result Flag Reference Site Sodium 141 135-145 mmol/L Potassium 4.2 3.3-5.1 mmol/L CL 108 96-108 mmol/L CO2 22 22-29 mmol/L Gap 15 12-20 BUN 31 H 9-16 mg/dL Creat 2.17 H 0.5-1.4 mg/dL EGFR 32 NOTE: For -[place]omb[place] individuals, multiply the result by 1.210. Chronic Kidney Disease: Estimated GFR < 60 mL/min/1.73m2 Severe Kidney Disease: Estimated GFR < 15 mL/min/1.73m2 FBS 213 H 60-99 mg/dL A fasting glucose of 126 mg/dl or greater on more than one occasion is considered diagnostic of diabetes. CA 9.0 8.4-10.2 mg/dL Total Bili 0.3 0.0-1.0 mg/dL AST (GOT) 12 5-37 U/L ALT (GPT) 9 0-40 U/L Protein, Total 7.0 6.5-8.0 g/dL Alb 3.0 L 3.5-5.0 g/dL Triglyceride 246 H <150 mg/dL Desirable Triglyceride: less than 150 mg/dL Borderline High Triglyceride 150-199 mg/dL High Triglyceride: 200-499 mg/dL Very High Triglyceride: greater than or equal to 5OO mg/dL Cholesterol 185 <200 mg/dL Desirable Cholesterol: less than 200 mg/dL Borderline High Cholesterol: 200-239 mg/dL High Cholesterol: greater than 239 mg/dL LDL Calculated 112 H <100 mg/dL Desirable LDL: less than 100 mg/dL Near Optimal/Above Optimal LDL: 110-129 mg/dL Borderline High LDL: 130-159 mg/dL High LDL: 160-189 mg/dL Very High LDL: greater than or equal to 190 mg/dL HDL 24 L >40 mg/dL Desirable HDL: greater than 40 mg/dL Note: This HDL assay may give artificially low results in patients with liver disease. Alk Phos 65 39-117 U/L Vit D 25-OH Tot 14.7 >30 ng/mL Health Based Reference Values* < 20 ng/mL Deficient 20-30 ng/mL Insufficient > 30 ng/mL Sufficient Laboratory Tests 06/07/21 10/08/21 12/01/22 13:59 13:33 09:45 Glucose (Clinic) Fasting Glucose 213 H Hgb A1c (Clinic) 8.4 H 7.8 H 12/09/22 12/09/22 14:27 14:43 Glucose (Clinic) 257 H Fasting Glucose Hgb A1c (Clinic) 7.5 H Coding Level of Care Code Est Pt Prev Care 40-64y(99837) Diagnoses Annual visit for general adult medical examination with abnormal findings Z00.01 Left cervical lymphadenopathy R59.0 Shoulder pain, left M25.512 History of CVA with residual deficit I69.30 Mixed dyslipidemia E78.2 RODGER (obstructive sleep apnea) G47.33 Smoker unmotivated to quit F17.200 Type 2 diabetes mellitus with diabetic neuropathy, without long-term current use of insulin E11.40 Diabetes mellitus half-way insulin use: without manager long term care use Diabetes mellitus type: type 2 Type 2 diabetes mellitus with hyperglycemia, with long-term current use of insulin E11.65; Z79.4 Diabetes mellitus type: type 2 Essential hypertension I10
[2022-12-29 13:51] VITALS: BP 120/88; PULSE 88; O2SAT 96
== END 2022-12-29 15:06 | disposition home or self-care (01) ==
PROVIDERS: PCP Internal Medicine; Visit Provider Internal Medicine
DX: Z00.00 Encounter for general adult medical examination without abnormal findings (principal); E11.40 Type 2 diabetes mellitus with diabetic neuropathy, unspecified; E11.65 Type 2 diabetes mellitus with hyperglycemia; Z79.4 Long term (current) use of insulin; R59.0 Localized enlarged lymph nodes; M25.512 Pain in left shoulder; I69.30 Unspecified sequelae of cerebral infarction; E78.2 Mixed hyperlipidemia; G47.33 Obstructive sleep apnea (adult) (pediatric); F17.200 Nicotine dependence, unspecified, uncomplicated; I10 Essential (primary) hypertension
CPT/HCPCS: 99499

== ENCOUNTER → 2022-12-29 14:59 | Outpatient (REF) | payer OTHER, SELFPAY | LOC: HO.SL 14:59 | PROVIDERS: PCP Internal Medicine; Visit Provider Internal Medicine | DX: G47.33 Obstructive sleep apnea (adult) (pediatric) (principal); E66.9 Obesity, unspecified | CPT/HCPCS: 95806 ==

== ENCOUNTER → 2022-12-29 15:49 | Outpatient (BNV) | payer OTHER, SELFPAY | PROVIDERS: PCP Internal Medicine; Visit Provider Internal Medicine | DX: G47.33 Obstructive sleep apnea (adult) (pediatric) (principal) | CPT/HCPCS: 95806 ==

== ENCOUNTER 2022-12-30 09:40 | Outpatient (REF) | payer OTHER, SELFPAY ==
--- NOTE | ~2022-12-30 | XR_ITS ---
EXAMINATION: XR SHOULDER, LEFT CLINICAL INFORMATION: Pain in left shoulder COMPARISON: None available. TECHNIQUE: Three views of the left shoulder. FINDINGS: Mild degenerative changes in the acromioclavicular joint with joint space narrowing and hypertrophic change. Mild hypertrophic change along the inferior aspect of the glenoid. Glenohumeral alignment preserved. No abnormal soft tissue calcification identified adjacent to the humeral head. 5 mm sclerotic lesion projects over the glenoid, possibly a bone island. XR/XR shoulder LT min 2V IMPRESSION: Mild degenerative changes.
== END 2022-12-30 09:41 | disposition home or self-care (01) ==
LOC: HO.HMGCX 09:40
PROVIDERS: PCP Internal Medicine; Visit Provider Internal Medicine
DX: M25.512 Pain in left shoulder (principal); E11.65 Type 2 diabetes mellitus with hyperglycemia; Z79.4 Long term (current) use of insulin
CPT/HCPCS: 73030; 99211

== ENCOUNTER 2022-12-30 10:25 | Outpatient (AMB) | payer OTHER, SELFPAY ==
--- NOTE | 2022-12-30 11:29 | MHC.AMDMED ---
Intake Intake Visit Reasons: f/u Type 2 DM Correctional Officer Chief Required: Yes Correctional Officer Chief Language: Hearing Instrument Specialist Name: Pt's Daughter Information Interpreted: non-clinical & clinical Accompanied by: Daughter Allergies No Known Allergies Allergy (Verified 12/29/22 14:32) HPI Comprehensive Diabetes Asmnt Most Recent Diabetes Results: Cholesterol 185 mg/dL (<200) 12/01/22 HDL Cholesterol 24 mg/dL (>40) L 12/01/22 Triglycerides 246 mg/dL (<150) H 12/01/22 Creatinine 2.17 mg/dL (0.5-1.4) H 12/01/22 Blood Urea Nitrogen 31 mg/dL (9-16) H 12/01/22 Sodium 141 mmol/L (135-145) 12/01/22 Potassium 4.2 mmol/L (3.3-5.1) 12/01/22 Chloride 108 mmol/L (96-108) 12/01/22 Carbon Dioxide 22 mmol/L (22-29) 12/01/22 Calcium 9.0 mg/dL (8.4-10.2) 12/01/22 AST 12 U/L (5-37) 12/01/22 ALT 9 U/L (0-40) 12/01/22 Total Protein 7.0 g/dL (6.5-8.0) 12/01/22 Albumin 3.0 g/dL (3.5-5.0) L 12/01/22 [facility] Medical History History of CVA with residual deficit Left cervical lymphadenopathy Obesity (BMI 30-39.9) Normocytic normochromic anemia COPD (chronic obstructive pulmonary disease) Chronic cough Cigarette smoker Cough Smoker unmotivated to quit RODGER (obstructive sleep apnea) Generalized anxiety disorder 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 Essential hypertension Allergic rhinitis Mixed dyslipidemia Amputation, toe, traumatic Vitamin D deficiency Diabetes mellitus with neuropathy Diabetes mellitus with hyperglycemia, with long-term current use of insulin Osteoarthritis Fibromyalgia Diabetic peripheral angiopathy Spondylosis of cervical spine Diabetic neurogenic arthropathy Surgical History History of foot surgery Family History Father HTN (hypertension) Diabetes Mental health disorder Mother HTN (hypertension) Brother Stroke Social History Household Members: Spouse and Children Housing: Apartment Alcohol intake: never Patient Tobacco Use Status: Current someday Tobacco user Cigarettes Per Day: 3 Years Smoked: 36 e-Cigarette/Vaping Use: Never Used Current occupational status: disabled Cognitive needs: No Hearing needs: No Vision needs: No Assessment & Plan Assessment & Plan (1) Diabetes mellitus with hyperglycemia, with long-term current use of insulin: Code(s): E11.65 - Type 2 diabetes mellitus with hyperglycemia; Z79.4 - skilled nursing (current) use of insulin Qualifiers: Diabetes mellitus type: type 2 Qualified Code(s): E11.65 - Type 2 diabetes mellitus with hyperglycemia; Z79.4 - buttermaker continuous churn (current) use of insulin Plan: Learning objectives: The patient was provided with verbal and written education on the following topics as outlined below. The patient met all learning objectives and was able to verbalize understanding and provide teach back of education topics discussed . The patient was provided with the opportunity to ask questions and all questions were answered. Patient Assessment Assess patient education level/literacy/barriers Patient questions/concerns, patient here with his daughter. Last visit in February 2022. Since last visit patient's kidney function has deteriorated. Patient has upcoming visit with cut file clerk in January 2023. Discussed with patient the importance of controlling blood sugars to reduce risk of further kidney function declined What is Diabetes? Pathophysiology How the body produces and uses insulin Identify type of DM Risk factors Signs of Diabetes Brief overview of Diabetes Management Monitoring blood sugar Following a meal plan Regular exercise Maintaining a healthy weight Taking medication as needed Members of the care team (PCP, RN, MA, RD, CDE, environmental programs specialist) Blood glucose monitoring When/how often to test Target blood sugar ranges Patient using freestyle Candelario 2 Average glucose for the past 2 weeks 204 mg/dL . Above target 60% At target 32% Below target 0% Introduction to Nutrition Importance of healthy diet in managing DM Diet is personalized to individual preference Review patient?s regular diet/food preferences Who prepares meals/does food shopping/ Dining out?/ Barriers? How diet effects glucose Eating 3 balanced meals a day with small, healthy snacks between meals Review food groups Carbohydrates: What is a carbohydrate/Which food/food groups are considered carbohydrates Effect of carbohydrates on blood glucose Portion sizes Reading food labels Basic carb counting (if applicable per nursing assessment) Plate method Meal planning Recommendations: Follow plate method, consistent carbs and read nutritional labels. Smart Goal: Patient will keep meals from 45-60 g carbohydrate per meal Educational Materials: The patient was provided with the following written educational materials: Planning Healthy Meals Handout Patient Response to instructions: Comprehension of Instructions: Fair Readiness to make changes: Contemplation How confident they feel about making changes: fair Patient Instructions: Incrementar Lantus de 40 unidades a 44 unidades. Seguimiento con enfermera de educaci?n en diabetes en 2 meses. Coding Level of Care Code Est Pt Level 1 (80985) Diagnoses Type 2 diabetes mellitus with hyperglycemia, with long-term current use of insulin E11.65; Z79.4 Diabetes mellitus type: type 2
== END 2022-12-30 11:31 | disposition home or self-care (01) ==
PROVIDERS: PCP Internal Medicine; Visit Provider Registered Nurse Diabetes Educator
DX: E11.65 Type 2 diabetes mellitus with hyperglycemia (principal); Z79.4 Long term (current) use of insulin

== ENCOUNTER 2023-01-15 09:03 | Outpatient (AMB) | payer OTHER, SELFPAY ==
--- NOTE | 2023-01-15 09:20 | A.OFFVIS_ITS ---
Intake Vital Signs 01/15/23 09:22 Height 6 ft 2 in BP 140/92 H Blood Pressure Location Lt brachial Position Sitting Pulse 88 Pulse Source Pulse Oximeter Pulse Oximetry (%) 97 Oxygen Delivery Method Room Air Intake Visit Reasons: Obstructive sleep apnea Intake Note: pt is here for follow up of sleep study and states his breathing is a little difficult Physical Science Professor Required: Yes Physical Science Professor Name: reena Allergies No Known Allergies Allergy (Verified 01/15/23 09:31) Medication List - Last Reconciled 01/15/23 by Edmundo Hammond MD amlodipine 5 mg PO DAILY aspirin 81 mg PO DAILY atorvastatin 40 mg PO QPM [bed rail As directed] blood-glucose sensor (SoundTag G6 Sensor device) As directed change every 10 days dulaglutide (Trulicity) 1.5 mg (0.5 mL) subcut QWEEK duloxetine 60 mg PO DAILY empagliflozin (Jardiance) 25 mg PO DAILY fluticasone propionate 50 mcg/actuation 1 spray intranasal DAILY FreeStyle Lancets (lancets) 28 gauge topical TID 30 days NS gabapentin 300 mg PO Q8H 30 days hydrochlorothiazide 12.5 mg PO QAM insulin aspart U-100 (Novolog FlexPen U-100 Insulin aspart) 30 units (0.3 mL) subcut TID insulin glargine (Lantus Solostar U-100 Insulin) 48 units (0.48 mL) subcut QPM insulin syringe-needle U-100 (Comfort EZ Insulin Syringe) USE WITH insulin two (2) times a day ipratropium-albuterol 0.5 mg-3 mg(2.5 mg base)/3 mL 3 mL inhalation QID PRN ketoconazole 2% 1 appl topical BID loratadine 10 mg PO DAILY PRN metoprolol tartrate 50 mg PO BID nortriptyline 50 mg PO BEDTIME omega-3 acid ethyl esters (Lovaza) 2 caps PO BID [overbed table with wheels As directed] pen needle, diabetic (Comfort EZ Pen [place]) USE DIRECTED 3 (THREE) TIMES A DAY prazosin 1 mg PO BEDTIME [shower bar As directed] Symbicort 160-4.5 mcg/actuation (budesonide-formoterol) 2 puffs inhalation Q12H NS tamsulosin 0.4 mg PO DAILY [wheelchair As directed] [wheelchair ramp Pt is wheelchair bound, needs a ramp to exit the front door and 6 steps to get to the sidewalk] Do you need a note to return to daycare/school/sports/work: No HPI Obstructive sleep apnea HPI Details THIS [age] YE[age] GENTLEMAN IS HERE FOR FOLLOW-UP AFTER HIS HOME- BASED SLEEP STUDY. AND FOR HIS BRONCHIAL ASTHMA. HE IS DOING VERY WELL. SLEEPS ON HIS SIDE, HAS ONLY OCCASIONAL COUGH AND WHEEZING, LONG HE USES HIS INHALER REGULARLY. DOES NOT WALK MUCH BECAUSE HE IS MOSTLY USING WHEELCHAIR DUE TO WEAKNESS OF BOTH LOWER EXTREMITIES. [facility] Medical History History of CVA with residual deficit Left cervical lymphadenopathy Obesity (BMI 30-39.9) Normocytic normochromic anemia COPD (chronic obstructive pulmonary disease) Chronic cough Cigarette smoker Cough Smoker unmotivated to quit RODGER (obstructive sleep apnea) Generalized anxiety disorder 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 Essential hypertension Allergic rhinitis Mixed dyslipidemia Amputation, toe, traumatic Vitamin D deficiency Diabetes mellitus with neuropathy Diabetes mellitus with hyperglycemia, with long-term current use of insulin Osteoarthritis Fibromyalgia Diabetic peripheral angiopathy Spondylosis of cervical spine Diabetic neurogenic arthropathy Surgical History History of foot surgery Family History Father HTN (hypertension) Diabetes Mental health disorder Mother HTN (hypertension) Brother Stroke Social History Household Members: Spouse and Children Housing: Apartment Alcohol intake: never Patient Tobacco Use Status: Current someday Tobacco user Cigarettes Per Day: 3 Years Smoked: 36 e-Cigarette/Vaping Use: Never Used Current occupational status: disabled Cognitive needs: No Hearing needs: No Vision needs: No Review of Systems Const All systems reviewed & are unremarkable except as noted in HPI and below Eyes Reports no additional complaints ENT Reports no additional complaints Card Denies chest pain at rest, Denies irregular heart rhythm and Denies leg edema Resp Reports as per HPI GI Reports no additional complaints Reports no additional complaints Musc Reports abnormal gait (He has weakness of both lower extremities and is non ambulatory, uses wheel), Reports back pain and Reports muscle weakness Skin/Breast Reports system reviewed and no additional complaints, except as documented Neuro Reports abnormal gait (He has weakness of both lower extremities and is non ambulatory, uses wheel) Psych Reports no additional complaints Endo Reports other (Being treated for diabetes mellitus) Aller/Immun Reports no additional complaints Physical Exam Vital Signs: Last Vital Signs Pulse 88 01/15/23 09:22 BP 140/92 H 01/15/23 09:22 Pulse Ox 97 01/15/23 09:22 Oxygen Delivery Method Room Air 01/15/23 09:22 The patient does appear to be moderately obese with a round face. He is sitting in the wheelchair but able to stand and walk, he appears to be comfortable. Const General: comfortable, no acute distress, alert and awake Orientation/consciousness: patient oriented x3 HEENT Head: Yes normal to inspection General nose exam: No nasal polyps present and No nasal discharge present Face and sinus: Yes sinuses nontender Mouth: oropharynx abnormals (Oropharynx is narrow and crowded, Mallampati class 4) Throat: Yes posterior oropharynx normal Eyes General: appearance normal, both eyes and all related structures Neck Neck: Yes normal visual inspection, Yes no lymphadenopathy, Yes trachea midline and Yes other (Neck circumference 18 in) Thyroid: Thyroid normal Chest Chest palpation & inspection: normal inspection of the chest, normal palpation of entire chest wall and no tenderness Resp Other: Percussion note is resonant, breath sounds are slightly distant especially over the basilar areas. No wheezes rhonchi or crepitations are heard. Cardio Palpation: normal PMI Rate: regular rate Rhythm: regular rhythm Heart sounds: no gallops and no murmurs GI Palpation (GI): Soft to palpation, nontender, No hepatosplenomegaly present and no masses Auscultation: normal bowel sounds Back/Spine/Pelvis Thoracic/Lumbar Spine: thoraco-lumbar ROM limited Skin General skin exam: no rashes or lesions noted Neuro General: patient oriented x3 and No gait normal (Patient is non ambulatory, uses wheelchair) Cranial nerves: Yes CN's II-XII intact bilaterally Extrem Other: Both legs are very thin and weak, peripheral pulses are not palpable. General: Yes no clubbing, cyanosis or edema (Right foot shows previous amputation of the toes.) and Yes no calf tenderness Psych Appearance: grossly normal and well kempt Speech and movement: Normal speech and movement present Results Reviewed Results Reviewed: HOME BASED SLEEP STUDY SHOWS, THAT HE HAS VERY MILD DEGREE OF SLEEP APNEA, MOSTLY IF HE SLEEPS IN SUPINE POSITION. EXPLAINED TO THE PATIENT. Assessment & Plan Assessment & Plan (1) Allergic rhinitis: Comment: MILD, SEASONAL, IN ACTIVE AT PRESENT Code(s): J30.9 - Allergic rhinitis, unspecified Plan: LORATADINE 10 MG ONCE A DAY P.R.N. FLONASE NASAL SPRAY TWO SPRAY IN EACH NOSTRIL DAILY NEEDED (2) RODGER (obstructive sleep apnea): Comment: HIS HOME BASED SLEEP STUDY SHOWS THAT HE HAS ONLY MILD OBSTRUCTIVE SLEEP APNEA MOSTLY IS WHEN SLEEPING IN SUPINE POSITION. HE DOES NOT NEED. TO USE CPAP SHE TRY TO LOSE ABOUT. 10-15 LB OF WEIGHT TRY TO SLEEP IN RIGHT LATERAL POSITION MUCH POSSIBLE. HE IS HAPPY TO HEAR THIS NEWS AND . UNDERSTANDS VERY WELL Code(s): G47.33 - Obstructive sleep apnea (adult) (pediatric) Plan: ABOVE (3) Smoker unmotivated to quit: Comment: HE IS CUTTING DOWN ON HIS SMOKING CURRENTLY SMOKING ONLY THREE CIGARETTES A DAY, I TOLD HIM THAT HE SHOULD TRY TO QUIT COMPLETELY. Code(s): F17.200 - Nicotine dependence, unspecified, uncomplicated Plan: COUNSELED STRONGLY TO QUIT SMOKING COMPLETELY (4) COPD (chronic obstructive pulmonary disease): Comment: HE HAS COMBINATION OF BRONCHIAL ASTHMA/COPD, SEEMS TO BE UNDER GOOD CONTROL. Code(s): J44.9 - Chronic obstructive pulmonary disease, unspecified Plan: SYMBICORT ONE SIXTY-FOUR POINT FIVE TWO PUFFS B.I.D. IPRATROPIUM-ALBUTEROL SOLUTION IN THE NEBULIZER Q.I.D. P.R.N.. TRY TO DO DEEP BREATHING EXERCISES TWO OR THREE TIMES A DAY. (5) Obesity (BMI 30-39.9): Comment: HE IS GROSSLY OBESE, DIFFICULT FOR HIM TO LOSE WEIGHT. INSTRUCTED TO AVOID USING CARBOHYDRATES. HE IS NOT ABLE TO DO MUCH EXERCISE HE IS MOSTLY IN THE WHEELCHAIR. Code(s): E66.9 - Obesity, unspecified Plan: ABOVE Coding Level of Care Code Est Pt Level 4 (84787) Diagnoses Allergic rhinitis J30.9 RODGER (obstructive sleep apnea) G47.33 Smoker unmotivated to quit F17.200 COPD (chronic obstructive pulmonary disease) J44.9 Obesity (BMI 30-39.9) E66.9
[2023-01-15 09:22] VITALS: BP 140/92; PULSE 88; O2SAT 97
== END 2023-01-15 09:42 | disposition home or self-care (01) ==
PROVIDERS: PCP Internal Medicine; Visit Provider Internal Medicine
DX: J30.9 Allergic rhinitis, unspecified (principal); G47.33 Obstructive sleep apnea (adult) (pediatric); F17.200 Nicotine dependence, unspecified, uncomplicated; J44.9 Chronic obstructive pulmonary disease, unspecified; E66.9 Obesity, unspecified
CPT/HCPCS: 99214

== ENCOUNTER → 2023-01-15 09:03 | Outpatient (BNVA) | payer OTHER, SELFPAY | PROVIDERS: PCP Internal Medicine; Visit Provider Internal Medicine | DX: G47.33 Obstructive sleep apnea (adult) (pediatric) (principal); J30.9 Allergic rhinitis, unspecified; J44.9 Chronic obstructive pulmonary disease, unspecified; E66.9 Obesity, unspecified; F17.210 Nicotine dependence, cigarettes, uncomplicated; Z71.6 Tobacco abuse counseling | CPT/HCPCS: 99212 ==

== ENCOUNTER 2023-01-21 13:09 | Outpatient (REF) | payer OTHER, SELFPAY ==
--- NOTE | ~2023-01-21 | US_ITS ---
EXAMINATION: US RETROPERITONEAL LIMITED (RENAL ONLY) CLINICAL INFORMATION: Chronic kidney disease, stage 3 unspecified. COMPARISON: None available. TECHNIQUE: Real-time imaging of the kidneys. FINDINGS: RIGHT KIDNEY: 11.0 x 5.8 x 5.2 cm (SAG x AP x TRV). The kidney is normal in size, contour, and echogenicity. Renal cortical thickness is normal. No renal calculi or hydronephrosis. Subcentimeter benign-appearing renal cyst, no follow-up imaging recommended. LEFT KIDNEY: 10.3 x 6.8 x 6.1 cm (SAG x AP x TRV). The kidney is normal in size, contour, and echogenicity. Renal cortical thickness is normal. No calculi or focal parenchymal lesions. No hydronephrosis. US/US renal BI IMPRESSION: Subcentimeter benign-appearing renal cyst, no follow-up imaging recommended. Otherwise unremarkable renal ultrasound.
--- NOTE | ~2023-01-21 | US_ITS ---
EXAMINATION: US SOFT TISSUE HEAD/NECK CLINICAL INFORMATION: Localized enlarged lymph nodes, left neck, area indicated by patient. COMPARISON: None available. TECHNIQUE: Linear transducer geiger-scale and color Doppler examination of the area indicated by patient, left base of head. FINDINGS: Area of palpable concern corresponds to a 1.3 x 0.5 x 1.1 cm left occipital node which is not pathologically enlarged and demonstrates normal hilar architecture. US/US soft tiss head and/or neck IMPRESSION: Area of palpable concern corresponds to a 0.5 cm short axis left occipital node which is not pathologically enlarged and demonstrates normal hilar architecture.
== END 2023-01-21 13:10 | disposition home or self-care (01) ==
LOC: HO.US 13:09
PROVIDERS: PCP Internal Medicine; Visit Provider Internal Medicine Hypertension Specialist
DX: R59.0 Localized enlarged lymph nodes (principal); N18.30 Chronic kidney disease, stage 3 unspecified; E11.29 Type 2 diabetes mellitus with other diabetic kidney complication; R80.9 Proteinuria, unspecified
CPT/HCPCS: 76536; 76775

== ENCOUNTER 2023-01-27 11:25 | Outpatient (AMB) | payer OTHER, SELFPAY ==
[2023-01-27 11:38] VITALS: BP 142/80; PULSE 90; O2SAT 97; BMI 33.8
--- NOTE | 2023-01-27 11:38 | HO.NEPHOV ---
HPI HPI Comments History of Present Illness Details Ana is a middle age man with a history of longstanding diabetes mellitus since age 35, obesity and hypertension was found to have chronic kidney disease with a serum creatinine of 2.17 as of November 2022. He was also found proteinuria of 1353 back in February of 2022. He has been referred here for evaluation of CKD and proteinuria. He was accompanied by his son who was helpful in translation. 01/27/2023 Jam is complaining of pain in his right hip radiating down his legs. No urinary symptoms. He did not undergo lab work as outlined. [facility] Medical History History of CVA with residual deficit Left cervical lymphadenopathy Obesity (BMI 30-39.9) Normocytic normochromic anemia COPD (chronic obstructive pulmonary disease) Chronic cough Cigarette smoker Cough Smoker unmotivated to quit RODGER (obstructive sleep apnea) Generalized anxiety disorder 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 Essential hypertension Allergic rhinitis Mixed dyslipidemia Amputation, toe, traumatic Vitamin D deficiency Diabetes mellitus with neuropathy Diabetes mellitus with hyperglycemia, with long-term current use of insulin Osteoarthritis Fibromyalgia Diabetic peripheral angiopathy Spondylosis of cervical spine Diabetic neurogenic arthropathy Surgical History History of foot surgery Family History Father HTN (hypertension) Diabetes Mental health disorder Mother HTN (hypertension) Brother Stroke Social History Household Members: Spouse and Children Housing: Apartment Alcohol intake: never Patient Tobacco Use Status: Current someday Tobacco user Cigarettes Per Day: 3 Years Smoked: 36 e-Cigarette/Vaping Use: Never Used Current occupational status: disabled Cognitive needs: No Hearing needs: No Vision needs: No Vital Signs 01/27/23 11:38 Height 6 ft 2 in Weight 263 lb BMI 33.8 BP 142/80 H Blood Pressure Location Rt brachial Position Sitting Pulse 90 Pulse Source Pulse Oximeter Pulse Oximetry (%) 97 Oxygen Delivery Method Room Air Physical Exam Vital Signs: Last Vital Signs Pulse 90 01/27/23 11:38 BP 142/80 H 01/27/23 11:38 Pulse Ox 97 01/27/23 11:38 Oxygen Delivery Method Room Air 01/27/23 11:38 BMI result Body Mass Index 33.8 Const General: cooperative and comfortable Nutritional Appearance: well nourished and obese Orientation/consciousness: patient oriented x3 HEENT Head: No normal to inspection Mouth: moist mucous membranes Neck Neck: Yes supple and Yes no JVD Resp Auscultation: clear to auscultation bilaterally, no rales and rub present Cardio Jugular venous distension: no JVD Palpation: no palpable S3 and no palpable S4 Heart sounds: no rubs GI Palpation (GI): Soft to palpation and nontender Percussion: No Fluid wave present General: Yes no CVA tenderness Back/Spine/Pelvis Back: no CVA tenderness Skin General skin exam: no rashes or lesions noted Neuro General: patient oriented x3 Extrem General: Yes no pedal edema and No clubbing Assessment & Plan Assessment & Plan (1) CKD (chronic kidney disease) stage 3, GFR 30-59 ml/min: Code(s): N18.30 - Chronic kidney disease, stage 3 unspecified Qualifiers: Chronic kidney disease stage 3 subtype: stage 3a (GFR 45-59) Qualified Code(s): N18.31 - Chronic kidney disease, stage 3a (2) Proteinuria due to type 2 diabetes mellitus: Code(s): E11.29 - Type 2 diabetes mellitus with other diabetic kidney complication; R80.9 - Proteinuria, unspecified (3) RODGER (obstructive sleep apnea): Comment: HIS HOME BASED SLEEP STUDY SHOWS THAT HE HAS ONLY MILD OBSTRUCTIVE SLEEP APNEA MOSTLY IS WHEN SLEEPING IN SUPINE POSITION. HE DOES NOT NEED. TO USE CPAP SHE TRY TO LOSE ABOUT. 10-15 LB OF WEIGHT TRY TO SLEEP IN RIGHT LATERAL POSITION MUCH POSSIBLE. HE IS HAPPY TO HEAR THIS NEWS AND . UNDERSTANDS VERY WELL Code(s): G47.33 - Obstructive sleep apnea (adult) (pediatric) Plan Middle-aged man with obesity hypertension diabetes mellitus with thirst CKD. Recent serum creatinine is 2.17. Repeat labs have been ordered. He probably has underlying hypertensive diabetic kidney disease. Goal is to slow the portion renal disease. Continue to avoid nephrotoxic agents including NSAIDs. Blood pressure control I have not made any changes in to his medications. Continue with angiotensin blockade. Discussed weight loss. He continues have pain in his right hip going down the legs. Increase him to follow-up with his PCP for further evaluation of sciatica. Increased and avoid NSAIDs. Orders: Orders Creatinine Urine Today N18.30 - Chronic kidney disease, stage 3 unspecified Electrolytes Today N18.30 - Chronic kidney disease, stage 3 unspecified Blood Urea Nitrogen Today N18.30 - Chronic kidney disease, stage 3 unspecified Creatinine Today N18.30 - Chronic kidney disease, stage 3 unspecified Calcium Today N18.30 - Chronic kidney disease, stage 3 unspecified Total Protein Urine Random Today N18.30 - Chronic kidney disease, stage 3 unspecified Coding Level of Care Code Est Pt Level 4 (81637) Diagnoses Stage 3a chronic kidney disease N18.31 Chronic kidney disease stage 3 subtype: stage 3a (GFR 45-59) Proteinuria due to type 2 diabetes mellitus E11.29; R80.9 RODGER (obstructive sleep apnea) G47.33 Results Reviewed Results Reviewed: No new labs available. Labs from November 2022 was reviewed Renal ultrasonogram was reviewed. There was a simple cyst and no further follow-up has been recommended. Nephrology Results: Renal US 01/21/23
== END 2023-01-27 12:00 | disposition home or self-care (01) ==
PROVIDERS: PCP Internal Medicine; Visit Provider Internal Medicine Hypertension Specialist
DX: N18.31 Chronic kidney disease, stage 3a (principal); E11.29 Type 2 diabetes mellitus with other diabetic kidney complication; R80.9 Proteinuria, unspecified; G47.33 Obstructive sleep apnea (adult) (pediatric)
CPT/HCPCS: 99214

== ENCOUNTER → 2023-01-27 11:25 | Outpatient (BNVA) | payer OTHER, SELFPAY | PROVIDERS: PCP Internal Medicine; Visit Provider Internal Medicine Hypertension Specialist | DX: E11.22 Type 2 diabetes mellitus with diabetic chronic kidney disease (principal); N18.31 Chronic kidney disease, stage 3a; E11.29 Type 2 diabetes mellitus with other diabetic kidney complication; R80.9 Proteinuria, unspecified; G47.33 Obstructive sleep apnea (adult) (pediatric) | CPT/HCPCS: 99212 ==

== ENCOUNTER 2023-01-27 12:42 | Outpatient (REF) | payer OTHER, SELFPAY ==
[2023-01-27 13:59] LABS: Creatinine Urine 132.41 mg/dL
[2023-01-27 14:22] LABS: Anion Gap 13 (12-20); Blood Urea Nitrogen 37 mg/dL (9-16); Calcium 9.4 mg/dL (8.4-10.2); Carbon Dioxide 22 mmol/L (22-29); Chloride 108 mmol/L (96-108); Estimated Glomerular Filt Rate 30; Potassium 4.3 mmol/L (3.3-5.1); Sodium 139 mmol/L (135-145)
[2023-01-27 14:34] LABS: Total Protein Urine Random 1708 mg/dL (<12)
[2023-01-28 14:58] LABS: Proteinase 3 PR3 Antibodies <1.0 AI
[2023-01-28 22:03] LABS: Prot Elec - Albumin 2.8 g/dL (3.8-4.8); Prot Elec - Alpha1 0.3 g/dL (0.2-0.3); Prot Elec - Alpha2 1.4 g/dL (0.5-0.9); Prot Elec - Beta 1 0.4 g/dL (0.4-0.6); Prot Elec - Beta 2 0.6 g/dL (0.2-0.5); Prot Elec - Total Protein 6.4 g/dL (6.1-8.1)
[2023-01-29 11:23] LABS: Complement C3 103 mg/dL (82-185)
[2023-01-30 08:23] LABS: Anti Nuclear Antibody Screen NEGATIVE (NEGATIVE)
[2023-01-31 06:49] LABS: Neutrophil Cyto Ab Screen NEGATIVE (NEGATIVE)
== END 2023-01-27 12:43 | disposition home or self-care (01) ==
LOC: HO.10HDL 12:42
PROVIDERS: Visit Provider Internal Medicine Hypertension Specialist
DX: N18.30 Chronic kidney disease, stage 3 unspecified (principal); E11.29 Type 2 diabetes mellitus with other diabetic kidney complication; R80.9 Proteinuria, unspecified
CPT/HCPCS: 36415; 80051; 82310; 82565; 82570; 84156; 84165; 84520; 86021; 86036; 86038; 86160

== ENCOUNTER 2023-03-04 10:49 | Outpatient (AMB) | payer OTHER, SELFPAY ==
--- NOTE | 2023-03-04 11:09 | MHC.AMNUTRGE ---
Intake Intake Visit Reasons: DM/LVM Allergies No Known Allergies Allergy (Verified 01/27/23 11:44) HPI Nutrition Presentation Details Pt presents for MNT for T2DM . Pt presents with customer services manager who prepares meals for him. Pt reports working on following meal plan. Admits to increased snacks on fruits and other sugary foods. Pt verbalizes understanding relationship of food and bg level. B: Eggs boiled with coffee with milk or coffee L: codfish with root vegetables D: same as lunch or rice/beans with chicken , mashed potatoes Pt comes in a wheelchair due to lack of balance,not weighed. c/o constipation fruits: apple, kiwi, grapes , strawberries, berries , pinepple , mangos ( has at least 2 a day ) Fish: 3 times a week vegetables: 3 x/wk snacks: 3+ /d (fruits/crackers, coffee, candies Physical activity: sedentary A1c 9.2% 02/2023 Most Recent Diabetes Results: Creatinine 2.29 mg/dL (0.5-1.4) H 01/27/23 Blood Urea Nitrogen 37 mg/dL (9-16) H 01/27/23 Sodium 139 mmol/L (135-145) 01/27/23 Potassium 4.3 mmol/L (3.3-5.1) 01/27/23 Chloride 108 mmol/L (96-108) 01/27/23 Carbon Dioxide 22 mmol/L (22-29) 01/27/23 Calcium 9.4 mg/dL (8.4-10.2) 01/27/23 [facility] Medical History History of CVA with residual deficit Left cervical lymphadenopathy Obesity (BMI 30-39.9) Normocytic normochromic anemia COPD (chronic obstructive pulmonary disease) Chronic cough Cigarette smoker Cough Smoker unmotivated to quit RODGER (obstructive sleep apnea) Generalized anxiety disorder 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 Essential hypertension Allergic rhinitis Mixed dyslipidemia Amputation, toe, traumatic Vitamin D deficiency Diabetes mellitus with neuropathy Diabetes mellitus with hyperglycemia, with long-term current use of insulin Osteoarthritis Fibromyalgia Diabetic peripheral angiopathy Spondylosis of cervical spine Diabetic neurogenic arthropathy Surgical History History of foot surgery Family History Father HTN (hypertension) Diabetes Mental health disorder Mother HTN (hypertension) Brother Stroke Social History Household Members: Spouse and Children Housing: Apartment Alcohol intake: never Patient Tobacco Use Status: Current someday Tobacco user Cigarettes Per Day: 3 Years Smoked: 36 e-Cigarette/Vaping Use: Never Used Current occupational status: disabled Cognitive needs: No Hearing needs: No Vision needs: No Assessment & Plan Assessment & Plan (1) Diabetes mellitus with hyperglycemia, with long-term current use of insulin: Code(s): E11.65 - Type 2 diabetes mellitus with hyperglycemia; Z79.4 - retirement (current) use of insulin Qualifiers: Diabetes mellitus type: type 2 Qualified Code(s): E11.65 - Type 2 diabetes mellitus with hyperglycemia; Z79.4 - retirement (current) use of insulin Plan: USED WEIGHT: 130 kg Est kcal needs as per MSJ: 2669-500 for sedentary lifestyle = 2169 est protein needs as per 1 g/kg current bw:132 g/d est fluid needs as per 25 ml/kg bw: 3318 ml/d Rec fiber intake : 30-38 g as tolerated Rec Na intake : < 1500 mg/d Review meal planning for glucose control including high fiber food choices, and review on portion sizes Medications: Discontinued dulaglutide Discontinued Reason: Doctor's Order 1.5 mg (0.5 mL) subcut QWEEK 2 mL 4RF Patient Instructions: HAve 3 balanced meals per day following healthy plate method Include fiber rich foods low in carbohydrates (peppers, tomatoes, carrots, green beans) and increase water as you increase fiber intake. Move legs as able or as otherwise specified by MD Limit your snacks, choose sugar free candies, vegetables, water Coding Level of Care Code Nutr Indiv Subseq (52519) Diagnoses Type 2 diabetes mellitus with hyperglycemia, with long-term current use of insulin E11.65; Z79.4 Diabetes mellitus type: type 2 Time Spent (min) 20
== END 2023-03-04 11:39 | disposition home or self-care (01) ==
PROVIDERS: PCP Internal Medicine; Visit Provider Dietitian, Registered
DX: E11.65 Type 2 diabetes mellitus with hyperglycemia (principal); Z79.4 Long term (current) use of insulin

== ENCOUNTER → 2023-03-04 10:49 | Outpatient (BNVA) | payer OTHER, SELFPAY | PROVIDERS: PCP Internal Medicine; Visit Provider Dietitian, Registered | DX: E11.65 Type 2 diabetes mellitus with hyperglycemia (principal); Z79.4 Long term (current) use of insulin; Z71.3 Dietary counseling and surveillance | CPT/HCPCS: 97803 ==

== ENCOUNTER 2023-03-09 12:05 | Outpatient (AMB) | payer OTHER, SELFPAY ==
--- NOTE | 2023-03-09 12:21 | A.OFFVIS_ITS ---
Intake Intake Visit Reasons: 60 min Food Science Technician Required: Yes Food Science Technician Language: Motor Man Name: [id number] Accompanied by: Spouse Allergies No Known Allergies Allergy (Verified 01/27/23 11:44) HPI Comprehensive Diabetes Asmnt Most Recent Diabetes Results: Microalb/Creat Ratio 1353.7 ug/mg cr 03/17/22 Cholesterol 185 mg/dL (<200) 12/01/22 HDL Cholesterol 24 mg/dL (>40) L 12/01/22 Triglycerides 246 mg/dL (<150) H 12/01/22 Creatinine 2.29 mg/dL (0.5-1.4) H 01/27/23 Blood Urea Nitrogen 37 mg/dL (9-16) H 01/27/23 Sodium 139 mmol/L (135-145) 01/27/23 Potassium 4.3 mmol/L (3.3-5.1) 01/27/23 Chloride 108 mmol/L (96-108) 01/27/23 Carbon Dioxide 22 mmol/L (22-29) 01/27/23 Calcium 9.4 mg/dL (8.4-10.2) 01/27/23 AST 12 U/L (5-37) 12/01/22 ALT 9 U/L (0-40) 12/01/22 Total Protein 7.0 g/dL (6.5-8.0) 12/01/22 Albumin 3.0 g/dL (3.5-5.0) L 12/01/22 [facility] Medical History History of CVA with residual deficit Left cervical lymphadenopathy Obesity (BMI 30-39.9) Normocytic normochromic anemia COPD (chronic obstructive pulmonary disease) Chronic cough Cigarette smoker Cough Smoker unmotivated to quit RODGER (obstructive sleep apnea) Generalized anxiety disorder 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 Essential hypertension Allergic rhinitis Mixed dyslipidemia Amputation, toe, traumatic Vitamin D deficiency Diabetes mellitus with neuropathy Diabetes mellitus with hyperglycemia, with long-term current use of insulin Osteoarthritis Fibromyalgia Diabetic peripheral angiopathy Spondylosis of cervical spine Diabetic neurogenic arthropathy Surgical History History of foot surgery Family History Father HTN (hypertension) Diabetes Mental health disorder Mother HTN (hypertension) Brother Stroke Social History Household Members: Spouse and Children Housing: Apartment Alcohol intake: never Patient Tobacco Use Status: Current someday Tobacco user Cigarettes Per Day: 3 Years Smoked: 36 e-Cigarette/Vaping Use: Never Used Current occupational status: disabled Cognitive needs: No Hearing needs: No Vision needs: No Assessment & Plan Assessment & Plan (1) Diabetes mellitus with hyperglycemia, with long-term current use of insulin: Code(s): E11.65 - Type 2 diabetes mellitus with hyperglycemia; Z79.4 - bed bug 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 (current) use of insulin Qualifiers: Diabetes mellitus type: type 2 Qualified Code(s): E11.65 - Type 2 diabetes mellitus with hyperglycemia; Z79.4 - detention (current) use of insulin Plan: Personal Continuous Glucose Monitor: Patients CGM information reviewed Reviewed patient's sensor data: Hypoglycemia: ? 0% Hyperglycemia:? 56% Time in Range:? 44% Average glucose for the last 2 weeks? 187 mg/dL Patient's last A1c 7.5% in 11/2022 Patient reports he is currently taking Lantus 44 units daily NovoLog 30 units before meals Patient may benefit from increase in Trulicity dose from 1.5 mg to 3 mg However patient complains that Trulicity has been causing frequent nausea. Message sent to Dr. Mcneil to see if it would be appropriate to switch to Mounjaro Reviewed how to interpret trend arrows Reminded patient that to check finger sticks if symptoms do not match sensor reading. Discussed lag time between finger stick and sensor data.? Patient able to insert sensor independently at home without issue.? Patient Instructions: Incrementar Lantus de 44 unidades a 46 unidades. Seguimiento con enfermera de educaci?n en diabetes en 1 meses Coding Level of Care Code Est Pt Level 1 (91047) Diagnoses Type 2 diabetes mellitus with hyperglycemia, with long-term current use of insulin E11.65; Z79.4 Diabetes mellitus type: type 2
== END 2023-03-09 12:45 | disposition home or self-care (01) ==
PROVIDERS: PCP Internal Medicine; Visit Provider Registered Nurse Diabetes Educator
DX: E11.65 Type 2 diabetes mellitus with hyperglycemia (principal); Z79.4 Long term (current) use of insulin

== ENCOUNTER → 2023-03-09 12:05 | Outpatient (BNVA) | payer OTHER, SELFPAY | PROVIDERS: PCP Internal Medicine; Visit Provider Registered Nurse Diabetes Educator | DX: E11.65 Type 2 diabetes mellitus with hyperglycemia (principal); Z79.4 Long term (current) use of insulin | CPT/HCPCS: 99211 ==

== ENCOUNTER 2023-04-20 13:08 | Outpatient (AMB) | payer OTHER, SELFPAY ==
[2023-04-20 13:10] VITALS: BP 118/82; PULSE 79
--- NOTE | 2023-04-20 13:10 | MHC.OFFVIS ---
Intake Vital Signs 04/20/23 13:10 Height 6 ft 2 in BP 118/82 Blood Pressure Location Lt brachial Position Sitting Pulse 79 Pulse Source Pulse Oximeter Intake Visit Reasons: f/u Type 2 DM-confirmed Intake Note: Patient present today to follow up on Type 2 Diabetes Mellitus. Patient receives DME supplies through: [employer] Last Diabetic Eye exam:04/14/2023 Last Podiatry Visit: 03/2023 Random Glucose: 164 mg/dl HgA1C: 6.7% Bathing Suit Maker Required: Yes Bathing Suit Maker Language: Prepared Foods Production Team Member Name: Sonia medical staff Information Interpreted: non-clinical & clinical Accompanied by: Daughter Allergies No Known Allergies Allergy (Verified 04/20/23 13:17) HPI HPI Comments History of Present Illness Details 52 YO M who is seen in consultation for T2DM at the request of PCP. Initially diagnosed with T2DM in 34 yrs old . Was initially started on treatment with metformin . Current regimen metformin 1000 mg BID ( not taking because of kidney infection) Jardiance 25 mg QD Mounjaro 2.5 mg Qwkly Lantus 40 units Novolog 30 units premeals . Dexcom download shows average glucose to be 183 with GMIi of 7.7% and standard deviation of 28. Dexcom is 97% of the time 52% range with 48% hyperglycemia 9% very hyperglycemic and no hypoglycemia . Pattern shows persistent hyperglycemia throughout the day with mild spike in glucose after breakfast and dinner occasionally hypoglycemia overnight Family history of T2DM in father and brother have Type 2 DM. Has eyes checked yearly, last eye exam saw optho last wk t , Has retinopathy. Has neuropathy, last foot exam , sees podiatry. Denies nephropathy, on ANDREW/ARB. Has HLD, on statin. [Denies] CAD. Had diabetes education. [facility] Medical History History of CVA with residual deficit Left cervical lymphadenopathy Obesity (BMI 30-39.9) Normocytic normochromic anemia COPD (chronic obstructive pulmonary disease) Chronic cough Cigarette smoker Cough Smoker unmotivated to quit RODGER (obstructive sleep apnea) Generalized anxiety disorder 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 Essential hypertension Allergic rhinitis Mixed dyslipidemia Amputation, toe, traumatic Vitamin D deficiency Diabetes mellitus with neuropathy Diabetes mellitus with hyperglycemia, with long-term current use of insulin Osteoarthritis Fibromyalgia Diabetic peripheral angiopathy Spondylosis of cervical spine Diabetic neurogenic arthropathy Surgical History History of foot surgery Family History Father HTN (hypertension) Diabetes Mental health disorder Mother HTN (hypertension) Brother Stroke Social History Household Members: Spouse and Children Housing: Apartment Alcohol intake: never Patient Tobacco Use Status: Current someday Tobacco user Cigarettes Per Day: 3 Years Smoked: 36 e-Cigarette/Vaping Use: Never Used Current occupational status: disabled Cognitive needs: No Hearing needs: No Vision needs: No Physical Exam Vital Signs: Last Vital Signs Pulse 79 04/20/23 13:10 BP 118/82 04/20/23 13:10 Absence of Cushingoid features. Absence of acromegalic features. Neck exam reveals nl size thyroid about 15 gms. No thyroid nodules palpable. No carotid bruits present. Lungs CTA. Heart S1 S2, Reg R/R. No M/R/ G. Skin exam reveals absence of vitiligo or acanthosis nigricans. Abdominal exam reveals Soft NT/ND with NA BS. No organomegaly present. Neck Other: . Extrem Other: Visual exam of foot performed. No ulcerations or open lesions. There is amputation of the 1st 4 digits in the right lower extremity. This area is banaged . No onchomycosis, no callouses.Pulses 1- distally Sensation decreased to monofilament exam. Vibratory sensation sensed is decreased with 128 Hz tuning fork. R foot banadaged and followed by wound clinic Results AMB Hemoglobin A1c AMB Hemoglobin A1c 6.7 % Last Edit by RYLEE Rudolph on 04/20/23 13:47 Results Reviewed Results Reviewed: Laboratory Last Values Glucose (Clinic) 164 mg/dL (60-115) H 04/20/23 13:20 Hgb A1c (Clinic) 6.7 % (4.0-6.0) H 04/20/23 13:23 Assessment & Plan Assessment & Plan (1) Diabetes mellitus with hyperglycemia, with long-term current use of insulin: Code(s): E11.65 - Type 2 diabetes mellitus with hyperglycemia; Z79.4 - ad terminal makeup operator (current) use of insulin Qualifiers: Diabetes mellitus type: type 2 Qualified Code(s): E11.65 - Type 2 diabetes mellitus with hyperglycemia; Z79.4 - ad terminal makeup operator (current) use of insulin Plan: This is a 52-year-old male with a history of type 2 diabetes being treated metformin, Jardiance, Mounjaro and basal-bolus insulin with fair glycemic control and known microvascular complications namely neuropathy. And CKD stage IIIB Plan is to increase the Mounjaro to 5 mg Qwkly . Also have patient follow up with Nephrology. Will also have patient follow up with telehealth nurse educator Orders: Orders AMB Hemoglobin A1c Today E11.65 - Type 2 diabetes mellitus with hyperglycemia, Z13.9 - Encounter for screening, unspecified, Z79.4 - ad terminal makeup operator (current) use of insulin Medications: New tirzepatide (Mounjaro) 5 mg (0.5 mL) subcut QWEEK 2 mL 4RF Discontinued tirzepatide (Mounjaro) Discontinued Reason: Doctor's Order 2.5 mg (0.5 mL) subcut QWEEK 4 weeks 2 mL 4RF Coding Level of Care Code Est Pt Level 4 (75828) Diagnoses Type 2 diabetes mellitus with hyperglycemia, with long-term current use of insulin E11.65; Z79.4 Diabetes mellitus type: type 2
[2023-04-20 13:24] LABS: Glucose, Whole Blood 164 mg/dL (60-115)
== END 2023-04-20 13:32 | disposition home or self-care (01) ==
PROVIDERS: PCP Internal Medicine; Visit Provider Internal Medicine Endocrinology, Diabetes & Metabolism
DX: Z13.9 Encounter for screening, unspecified (principal); E11.65 Type 2 diabetes mellitus with hyperglycemia; Z79.4 Long term (current) use of insulin
CPT/HCPCS: 99214

== ENCOUNTER → 2023-04-20 13:08 | Outpatient (BNVA) | payer OTHER, SELFPAY | PROVIDERS: PCP Internal Medicine; Visit Provider Internal Medicine Endocrinology, Diabetes & Metabolism | DX: E11.65 Type 2 diabetes mellitus with hyperglycemia (principal); Z79.4 Long term (current) use of insulin | CPT/HCPCS: 82947; 83036; 99212 ==

== ENCOUNTER 2023-04-27 10:45 | Outpatient (AMB) | payer OTHER, SELFPAY ==
[2023-04-27 10:54] VITALS: BP 176/89; PULSE 85; O2SAT 95
--- NOTE | 2023-04-27 10:54 | HO.NEPHOV_ITS ---
HPI HPI Comments History of Present Illness Details Ana is a middle age man with a history of longstanding diabetes mellitus since age 35, obesity and hypertension was found to have chronic kidney disease with a serum creatinine of 2.17 as of November 2022. He was also found proteinuria of 1353 back in February of 2022. He has been referred here for evaluation of CKD and proteinuria. He was accompanied by his son who was helpful in translation. 01/27/2023 Jam is complaining of pain in his right hip radiating down his legs. No urinary symptoms. He did not undergo lab work as outlined. 04/27/23 Doing better Did not take his meds today [facility] Medical History History of CVA with residual deficit Left cervical lymphadenopathy Obesity (BMI 30-39.9) Normocytic normochromic anemia COPD (chronic obstructive pulmonary disease) Chronic cough Cigarette smoker Cough Smoker unmotivated to quit RODGER (obstructive sleep apnea) Generalized anxiety disorder 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 Essential hypertension Allergic rhinitis Mixed dyslipidemia Amputation, toe, traumatic Vitamin D deficiency Diabetes mellitus with neuropathy Diabetes mellitus with hyperglycemia, with long-term current use of insulin Osteoarthritis Fibromyalgia Diabetic peripheral angiopathy Spondylosis of cervical spine Diabetic neurogenic arthropathy Surgical History History of foot surgery Family History Father HTN (hypertension) Diabetes Mental health disorder Mother HTN (hypertension) Brother Stroke Social History Household Members: Spouse and Children Housing: Apartment Alcohol intake: never Patient Tobacco Use Status: Current someday Tobacco user Cigarettes Per Day: 3 Years Smoked: 36 e-Cigarette/Vaping Use: Never Used Current occupational status: disabled Cognitive needs: No Hearing needs: No Vision needs: No Vital Signs 04/27/23 10:54 Height 6 ft 2 in BP 176/89 H Blood Pressure Location Rt brachial Position Sitting Pulse 85 Pulse Source Pulse Oximeter Pulse Oximetry (%) 95 Oxygen Delivery Method Room Air Physical Exam Vital Signs: Last Vital Signs Pulse 85 04/27/23 10:54 BP 176/89 H 04/27/23 10:54 Pulse Ox 95 03/11/24 10:54 Oxygen Delivery Method Room Air 04/27/23 10:54 Const General: comfortable Nutritional Appearance: well nourished Orientation/consciousness: patient oriented x3 HEENT Head: No normal to inspection Mouth: moist mucous membranes Neck Neck: Yes supple and Yes no JVD Resp Auscultation: clear to auscultation bilaterally, no rales and rub present Cardio Jugular venous distension: no JVD Palpation: no palpable S3 and no palpable S4 Heart sounds: no rubs GI Palpation (GI): Soft to palpation and nontender Percussion: No Fluid wave present General: Yes no CVA tenderness Back/Spine/Pelvis Back: no CVA tenderness Skin General skin exam: no rashes or lesions noted Neuro General: patient oriented x3 Extrem General: Yes no pedal edema and No clubbing Assessment & Plan Assessment & Plan (1) CKD (chronic kidney disease) stage 3, GFR 30-59 ml/min: Code(s): N18.30 - Chronic kidney disease, stage 3 unspecified Qualifiers: Chronic kidney disease stage 3 subtype: stage 3a (GFR 45-59) Qualified Code(s): N18.31 - Chronic kidney disease, stage 3a (2) Proteinuria due to type 2 diabetes mellitus: Code(s): E11.29 - Type 2 diabetes mellitus with other diabetic kidney complication; R80.9 - Proteinuria, unspecified (3) RODGER (obstructive sleep apnea): Comment: Not using CPAP Code(s): G47.33 - Obstructive sleep apnea (adult) (pediatric) Plan Middle-aged man with obesity hypertension diabetes mellitus with thirst CKD. Recent serum creatinine is 2.27. He probably has underlying hypertensive diabetic kidney disease. Goal is to slow the portion renal disease. Continue to avoid nephrotoxic agents including NSAIDs. Blood pressure Goal < 130/80 Continue with angiotensin blockade. Discussed weight loss. Discussed compliance He continues have pain in his right hip going down the legs. follow-up with his PCP for further evaluation of sciatica. Increased and avoid NSAIDs. DM- Discussed importance to control of blood sugar Continue SGLT-2 inhibitors Orders: Orders Basic Metabolic Panel 3 Months E11.29 - Type 2 diabetes mellitus with other diabetic kidney complication, N18.30 - Chronic kidney disease, stage 3 unspecified, R80.9 - Proteinuria, unspecified Comprehensive Met. Panel 3 Months N18.9 - Chronic kidney disease, unspecified Complete Blood Count Auto Diff 3 Months E11.29 - Type 2 diabetes mellitus with other diabetic kidney complication, N18.30 - Chronic kidney disease, stage 3 unspecified, R80.9 - Proteinuria, unspecified Coding Level of Care Code Est Pt Level 4 (17790) Diagnoses Stage 3a chronic kidney disease N18.31 Chronic kidney disease stage 3 subtype: stage 3a (GFR 45-59) Proteinuria due to type 2 diabetes mellitus E11.29; R80.9 RODGER (obstructive sleep apnea) G47.33 Results Reviewed Results Reviewed: RIGHT KIDNEY: 11.0 x 5.8 x 5.2 cm (SAG x AP x TRV). The kidney is normal in size, contour, and echogenicity. Renal cortical thickness is normal. No renal calculi or hydronephrosis. Subcentimeter benign-appearing renal cyst, no follow-up imaging recommended. LEFT KIDNEY: 10.3 x 6.8 x 6.1 cm (SAG x AP x TRV). The kidney is normal in size, contour, and echogenicity. Renal cortical thickness is normal. No calculi or focal parenchymal lesions. No hydronephrosis. US/US renal BI IMPRESSION: Subcentimeter benign-appearing renal cyst, no follow-up imaging recommended. Otherwise unremarkable renal ultrasound. Nephrology Results: Sodium 139 mmol/L (135-145) 01/27/23 Potassium 4.3 mmol/L (3.3-5.1) 01/27/23 Chloride 108 mmol/L (96-108) 01/27/23 Carbon Dioxide 22 mmol/L (22-29) 01/27/23 BUN 37 mg/dL (9-16) H 01/27/23 Creatinine 2.29 mg/dL (0.5-1.4) H 01/27/23 Calcium 9.4 mg/dL (8.4-10.2) 01/27/23 Urine Creatinine 132.41 mg/dL 01/27/23
== END 2023-04-27 11:20 | disposition home or self-care (01) ==
PROVIDERS: PCP Internal Medicine; Visit Provider Internal Medicine Hypertension Specialist
DX: N18.31 Chronic kidney disease, stage 3a (principal); E11.29 Type 2 diabetes mellitus with other diabetic kidney complication; R80.9 Proteinuria, unspecified; G47.33 Obstructive sleep apnea (adult) (pediatric)
CPT/HCPCS: 99214

== ENCOUNTER → 2023-04-27 10:45 | Outpatient (BNVA) | payer OTHER, SELFPAY | PROVIDERS: PCP Internal Medicine; Visit Provider Internal Medicine Hypertension Specialist | DX: E11.22 Type 2 diabetes mellitus with diabetic chronic kidney disease (principal); N18.31 Chronic kidney disease, stage 3a; E11.29 Type 2 diabetes mellitus with other diabetic kidney complication; R80.9 Proteinuria, unspecified; G47.33 Obstructive sleep apnea (adult) (pediatric) | CPT/HCPCS: 99212 ==

== ENCOUNTER 2023-05-06 10:14 | Outpatient (AMB) | payer OTHER, SELFPAY ==
--- NOTE | 2023-05-06 10:44 | MHC.AMDMED ---
Intake Intake Visit Reasons: DM/confirmed Wine And Spirits Clerk Required: Yes Wine And Spirits Clerk Language: Supervisor Varnish Name: Pt's Daughter Information Interpreted: non-clinical & clinical Accompanied by: Daughter Allergies No Known Allergies Allergy (Verified 04/27/23 10:58) HPI Comprehensive Diabetes Asmnt Most Recent Diabetes Results: No Data to Display [facility] Medical History History of CVA with residual deficit Left cervical lymphadenopathy Obesity (BMI 30-39.9) Normocytic normochromic anemia COPD (chronic obstructive pulmonary disease) Chronic cough Cigarette smoker Cough Smoker unmotivated to quit RODGER (obstructive sleep apnea) Generalized anxiety disorder 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 Essential hypertension Allergic rhinitis Mixed dyslipidemia Amputation, toe, traumatic Vitamin D deficiency Diabetes mellitus with neuropathy Diabetes mellitus with hyperglycemia, with long-term current use of insulin Osteoarthritis Fibromyalgia Diabetic peripheral angiopathy Spondylosis of cervical spine Diabetic neurogenic arthropathy Surgical History History of foot surgery Family History Father HTN (hypertension) Diabetes Mental health disorder Mother HTN (hypertension) Brother Stroke Social History Household Members: Spouse and Children Housing: Apartment Alcohol intake: never Patient Tobacco Use Status: Current someday Tobacco user Cigarettes Per Day: 3 Years Smoked: 36 e-Cigarette/Vaping Use: Never Used Current occupational status: disabled Cognitive needs: No Hearing needs: No Vision needs: No Assessment & Plan Assessment & Plan (1) Diabetes mellitus with hyperglycemia, with long-term current use of insulin: Code(s): E11.65 - Type 2 diabetes mellitus with hyperglycemia; Z79.4 - skilled nursing (current) use of insulin Qualifiers: Diabetes mellitus type: type 2 Qualified Code(s): E11.65 - Type 2 diabetes mellitus with hyperglycemia; Z79.4 - termite control servicer (current) use of insulin Plan: Personal Continuous Glucose Monitor: Patients CGM information reviewed Reviewed patient's sensor data: Hypoglycemia: ? 0% Hyperglycemia:?40% Time in Range:?60% Average glucose for the last 2 weeks? 170 mg/dL 2 weeks ago at last visit with Dr. Mcneil patient's Mounjaro was increased to 5 mg. Currently, most of the pharmacies in the area are on back order so patient has not been able to start new dose. The patient's blood sugars have improved, patient is motivated to continue to improve glucose levels recommended to patient and his daughter that they call pharmacy daily to find out when they will be able to obtain higher dose Reviewed how to interpret trend arrows Reminded patient that to check finger sticks if symptoms do not match sensor reading. Discussed lag time between finger stick and sensor data.? Patient able to insert sensor independently at home without issue.? Patient Instructions: Follow-up with hospice educator in 6 weeks Coding Level of Care Code Est Pt Level 1 (63382) Diagnoses Type 2 diabetes mellitus with hyperglycemia, with long-term current use of insulin E11.65; Z79.4 Diabetes mellitus type: type 2
== END 2023-05-06 10:54 | disposition home or self-care (01) ==
PROVIDERS: PCP Internal Medicine; Visit Provider Registered Nurse Diabetes Educator
DX: E11.65 Type 2 diabetes mellitus with hyperglycemia (principal); Z79.4 Long term (current) use of insulin

== ENCOUNTER → 2023-05-06 10:14 | Outpatient (BNVA) | payer OTHER, SELFPAY | PROVIDERS: PCP Internal Medicine; Visit Provider Registered Nurse Diabetes Educator | DX: E11.65 Type 2 diabetes mellitus with hyperglycemia (principal); Z79.4 Long term (current) use of insulin | CPT/HCPCS: 99211 ==

== ENCOUNTER 2023-06-08 10:45 | Outpatient (AMB) | payer OTHER, SELFPAY ==
--- NOTE | 2023-06-08 11:06 | MHC.AMNUTRGE ---
Intake VS Expanded 06/08/23 11:33 06/08/23 21:02 Height 6 ft 2 in 6 ft 2 in Weight 268 lb 1.2 oz 268 lb BMI 34.4 34.4 Intake Visit Reasons: T2DM/LVM Allergies No Known Allergies Allergy (Verified 04/27/23 10:58) HPI Nutrition Presentation Details Pt presents for MNT for T2DM Pt reports doing well. He reports he is out of sensors for a month - pharmacy was called and sensors are ready for Pt to mixing picker tender/or pharm delivery and Pt was made aware of this. Pt reports choosing a variety of foods, having 3 -4 small meals per day, reports feeling much better. reports making meals with less sugar and choosing complex carbohydrates. Meals consist of B: cereal (oatmeal, cheerios with low fat milk ) or ham/cheese sand on white or wheat bread or scrambled eggs and 4 -6 crackers L: soup (vegetables and chicken or noodles or small amount of rice) snack: fruit or crackers iwth peanut butter , sometimes a cookies or 2 dinner: root veg with fish or chicken or lean beef and steamed vegetables ,water Pt reports developing diarrhea after having regular milk therefore not consuming dairy or cheese - will review choosing lactose free options XJC-Irrmkai-Wr.Jeor Equation Height 6 ft 2 in Weight 268 lb Resting Metabolic Rate 2128.48 Calculated Activity Level Sedentary Calories Needed to Maintain Weight 2554.18 Diagnosis Nutrition problem #1 other (limited intake of calcium source of foods ) As related to (etiology) #1 lack of nutrit education (re: sources of calcium) As evidenced by (sign/symptom) #1 knowledge deficit of diet Monitoring/Goals Nutrition problem monitoring level of knowledge/skill Outcome progress verbalized understanding Learning/Education Readiness to learn good Stages of change preparation Educational materials provided Yes (food sources of calcium in diet , aim at 1000 mg/d) Most Recent Diabetes Results: No Data to Display [facility] Medical History History of CVA with residual deficit Left cervical lymphadenopathy Obesity (BMI 30-39.9) Normocytic normochromic anemia COPD (chronic obstructive pulmonary disease) Chronic cough Cigarette smoker Cough Smoker unmotivated to quit RODGER (obstructive sleep apnea) Generalized anxiety disorder 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 Essential hypertension Allergic rhinitis Mixed dyslipidemia Amputation, toe, traumatic Vitamin D deficiency Diabetes mellitus with neuropathy Diabetes mellitus with hyperglycemia, with long-term current use of insulin Osteoarthritis Fibromyalgia Diabetic peripheral angiopathy Spondylosis of cervical spine Diabetic neurogenic arthropathy Surgical History History of foot surgery Family History Father HTN (hypertension) Diabetes Mental health disorder Mother HTN (hypertension) Brother Stroke Social History Household Members: Spouse and Children Housing: Apartment Alcohol intake: never Patient Tobacco Use Status: Current someday Tobacco user Cigarettes Per Day: 3 Years Smoked: 36 e-Cigarette/Vaping Use: Never Used Current occupational status: disabled Cognitive needs: No Hearing needs: No Vision needs: No Assessment & Plan Assessment & Plan (1) Diabetes mellitus with hyperglycemia, with long-term current use of insulin: Code(s): E11.65 - Type 2 diabetes mellitus with hyperglycemia; Z79.4 - 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 helper termite (current) use of insulin Qualifiers: Diabetes mellitus type: type 2 Qualified Code(s): E11.65 - Type 2 diabetes mellitus with hyperglycemia; Z79.4 - 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 helper termite (current) use of insulin Plan: Discuss lactose free food option and calcium containing food alternatives Review healthy plate method Patient Instructions: Include food sources of calcium in your diet (fortified foods , tofu, spinach, canned sardines) see list of options, aim at consuming at least 1000 mg /day Follow healthy plate method , working at reducing total carb to 60-75 g at meal time follow recommendations for physical activity from your doctor Coding Level of Care Code Nutr Indiv Subseq (88340) Diagnoses Type 2 diabetes mellitus with hyperglycemia, with long-term current use of insulin E11.65; Z79.4 Diabetes mellitus type: type 2 Time Spent (min) 30
[2023-06-08 11:33] VITALS: BMI 34.4
[2023-06-10 12:20] VITALS: BMI 34.4
== END 2023-06-08 11:37 | disposition home or self-care (01) ==
LOC: HO.ENCR 10:45
PROVIDERS: PCP Internal Medicine; Visit Provider Dietitian, Registered
DX: E11.65 Type 2 diabetes mellitus with hyperglycemia (principal); Z79.4 Long term (current) use of insulin

== ENCOUNTER → 2023-06-08 10:45 | Outpatient (BNVA) | payer OTHER, SELFPAY | PROVIDERS: PCP Internal Medicine; Visit Provider Dietitian, Registered | DX: E11.65 Type 2 diabetes mellitus with hyperglycemia (principal); Z79.4 Long term (current) use of insulin | CPT/HCPCS: 97803 ==

== ENCOUNTER 2023-06-24 14:04 | Outpatient (AMB) | payer OTHER, SELFPAY ==
[2023-06-24 14:36] VITALS: BP 122/94; PULSE 82; O2SAT 97
--- NOTE | 2023-06-24 14:36 | MHC.OFFVIS ---
Vital Signs 06/24/23 14:36 Height 6 ft 2 in BP 122/94 H Blood Pressure Location Lt brachial Position Sitting Pulse 82 Pulse Source Pulse Oximeter Pulse Oximetry (%) 97 Oxygen Delivery Method Room Air Intake Visit Reasons: wesly Intake Note: pt is here for follow up and states he is coughing, and having a hard time to breath and shortness of breath while sleeping, he sleeps on the back and on the sides, moves a lot Yarding Engineer Required: No Allergies No Known Allergies Allergy (Verified 06/24/23 15:06) Medication List - Last Reconciled 06/24/23 by Edmundo Hammond MD amlodipine 5 mg PO DAILY aspirin 81 mg PO DAILY atorvastatin 40 mg PO QPM [bed rail As directed] blood-glucose sensor ([employer] G6 Sensor device) As directed change every 10 days blood-glucose transmitter ([employer] G6 Transmitter device) As directed duloxetine 60 mg PO DAILY empagliflozin (Jardiance) 25 mg PO DAILY fluticasone propionate 50 mcg/actuation 1 spray intranasal DAILY FreeStyle Lancets (lancets) USE TO TEST FINGER STICK BLOOD SUGAR 3 (THREE) TIMES A DAY NS gabapentin 300 mg PO Q8H 30 days hydrochlorothiazide 12.5 mg PO QAM insulin aspart U-100 (Novolog FlexPen U-100 Insulin aspart) 30 units (0.3 mL) subcut TID insulin glargine (Lantus Solostar U-100 Insulin) 48 units (0.48 mL) subcut QPM insulin syringe-needle U-100 (Comfort EZ Insulin Syringe) USE WITH insulin two (2) times a day ipratropium-albuterol 0.5 mg-3 mg(2.5 mg base)/3 mL 3 mL inhalation QID PRN ketoconazole 2% 1 appl topical BID loratadine 10 mg PO DAILY PRN metoprolol tartrate 50 mg PO BID nortriptyline 50 mg PO BEDTIME omega-3 acid ethyl esters (Lovaza) 2 caps PO BID [overbed table with wheels As directed] pen needle, diabetic (Comfort EZ [employer] [place]) USE DIRECTED 3 (THREE) TIMES A DAY prazosin 1 mg PO BEDTIME [shower bar As directed] Symbicort 160-4.5 mcg/actuation (budesonide-formoterol) 2 puffs inhalation Q12H NS tamsulosin 0.4 mg PO DAILY tirzepatide (Mounjaro) 5 mg (0.5 mL) subcut QWEEK [wheelchair As directed] [wheelchair ramp Pt is wheelchair bound, needs a ramp to exit the front door and 6 steps to get to the sidewalk] Do you need a note to return to daycare/school/sports/work: No HPI HPI wesly: Details: 52 years old gentleman is here for his routine follow-up. He has very frequent cough, without much expectoration. Has difficulty in sleeping because cough wakes him up. He has had no acute respiratory infection except for some cold symptoms 3 weeks ago. Unfortunately smokes 1 pack of cigarettes a day. He does have mild obstructive sleep apnea and he is being treated with weight reduction and position therapy. He has lost some weight but position lopez he just tosses and turns around during his sleep. [facility] Medical History History of CVA with residual deficit Left cervical lymphadenopathy Obesity (BMI 30-39.9) Normocytic normochromic anemia COPD (chronic obstructive pulmonary disease) Chronic cough Cigarette smoker Cough Smoker unmotivated to quit WESLY (obstructive sleep apnea) Generalized anxiety disorder 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 Essential hypertension Allergic rhinitis Mixed dyslipidemia Amputation, toe, traumatic Vitamin D deficiency Diabetes mellitus with neuropathy Diabetes mellitus with hyperglycemia, with long-term current use of insulin Osteoarthritis Fibromyalgia Diabetic peripheral angiopathy Spondylosis of cervical spine Diabetic neurogenic arthropathy Surgical History History of foot surgery Family History Father HTN (hypertension) Diabetes Mental health disorder Mother HTN (hypertension) Brother Stroke Social History Household Members: Spouse and Children Housing: Apartment Alcohol intake: never Patient Tobacco Use Status: Current someday Tobacco user Cigarettes Per Day: 3 Years Smoked: 36 e-Cigarette/Vaping Use: Never Used Current occupational status: disabled Cognitive needs: No Hearing needs: No Vision needs: No Review of Systems Const All systems reviewed & are unremarkable except as noted in HPI and below Eyes Reports no additional complaints ENT Reports no additional complaints Card Denies chest pain at rest, Denies irregular heart rhythm and Denies leg edema Resp Reports as per HPI GI Reports no additional complaints Reports no additional complaints Musc Reports abnormal gait (He has weakness of both lower extremities and is non ambulatory, uses wheel), Reports back pain and Reports muscle weakness Skin/Breast Reports system reviewed and no additional complaints, except as documented Neuro Reports abnormal gait (He has weakness of both lower extremities and is non ambulatory, uses wheel) Psych Reports no additional complaints Endo Reports other (Being treated for diabetes mellitus) Aller/Immun Reports no additional complaints Physical Exam Vital Signs: Last Vital Signs Pulse 82 06/24/23 14:36 BP 122/94 H 06/24/23 14:36 Pulse Ox 97 06/24/23 14:36 Oxygen Delivery Method Room Air 06/24/23 14:36 The patient does appear to be moderately obese with a round face. He is sitting in the wheelchair but able to stand and walk, he appears to be comfortable. Const General: comfortable, no acute distress, alert and awake Orientation/consciousness: patient oriented x3 HEENT Head: Yes normal to inspection General nose exam: No nasal polyps present and No nasal discharge present Face and sinus: Yes sinuses nontender Mouth: oropharynx abnormals (Oropharynx is narrow and crowded, Mallampati class 4) Throat: Yes posterior oropharynx normal Eyes General: appearance normal, both eyes and all related structures Neck Neck: Yes normal visual inspection, Yes no lymphadenopathy, Yes trachea midline and Yes other (Neck circumference 18 in) Thyroid: Thyroid normal Chest Chest palpation & inspection: normal inspection of the chest, normal palpation of entire chest wall and no tenderness Resp Other: Percussion note is resonant, breath sounds are slightly distant especially over the basilar areas. He does have a few scattered wheezes on both sides. Cardio Palpation: normal PMI Rate: regular rate Rhythm: regular rhythm Heart sounds: no gallops and no murmurs GI Palpation (GI): Soft to palpation, nontender, No hepatosplenomegaly present and no masses Auscultation: normal bowel sounds Back/Spine/Pelvis Thoracic/Lumbar Spine: thoraco-lumbar ROM limited Skin General skin exam: no rashes or lesions noted Neuro General: patient oriented x3 and No gait normal (Patient is non ambulatory, uses wheelchair) Cranial nerves: Yes CN's II-XII intact bilaterally Extrem Other: Both legs are very thin and weak, peripheral pulses are not palpable. General: Yes no clubbing, cyanosis or edema (Right foot shows previous amputation of the toes.) and Yes no calf tenderness Psych Appearance: grossly normal and well kempt Speech and movement: Normal speech and movement present Assessment & Plan Assessment & Plan (1) COPD (chronic obstructive pulmonary disease): Comment: HE HAS COMBINATION OF BRONCHIAL ASTHMA/COPD, FREQUENT COUGH AND INCREASED SHORTNESS OF BREATH SINCE LAST 3-4 WEEKS AFTER A BOUT OF UPPER RESPIRATORY INFECTION. Code(s): J44.9 - Chronic obstructive pulmonary disease, unspecified Category: Medical Plan: ADVISED TO CONTINUE USING DUONEB UPDRAFT Q 6 HOURS WHILE AWAKE( AT LEAST 3 TIMES A DAY) SYMBICORT 160-4.52 PUFFS B.I.D. (2) Obesity (BMI 30-39.9): Comment: HE IS GROSSLY OBESE, DIFFICULT FOR HIM TO LOSE WEIGHT. INSTRUCTED TO AVOID CONSUMING CARBOHYDRATES, BUT IT IS DIFFICULT FOR HIM TO COMPLY WITH THE DIET. HE IS NOT ABLE TO DO MUCH EXERCISE HE IS MOSTLY IN THE WHEELCHAIR. Code(s): E66.9 - Obesity, unspecified Category: Medical Plan: ABOVE (3) WESLY (obstructive sleep apnea): Comment: HE DOES HAVE PAST HISTORY OF OBSTRUCTIVE SLEEP APNEA, HE HAD STOPPED USING THE CPAP. HIS LAST STUDY IN DECEMBER 2022 SHOWED ONLY MILD OBSTRUCTIVE SLEEP APNEA. HE HAS HISTORY OF NONCOMPLIANCE TO CPAP IT WAS DECIDED THAT HE SHOULD BE TREATED WITH CONSERVATIVE MEASURES INCLUDING WEIGHT REDUCTION AND POSITION THERAPY. HE IS LOSING WEIGHT SLOWLY, CAN NOT COMPLY WITH POSITION THERAPY. Code(s): G47.33 - Obstructive sleep apnea (adult) (pediatric) Category: Medical Plan: CONTINUE TRYING TO LOSE WEIGHT TRY TO SLEEP IN LATERAL POSITION MUCH POSSIBLE. (4) Smoker unmotivated to quit: Comment: HE IS CUTTING DOWN ON HIS SMOKING CURRENTLY HE IS SMOKING 15 CIGARETTES A DAY. TOLD HIM THAT HIS COUGH IS NOT GOING TO GO AWAY UNTIL HE STOP SMOKING COMPLETELY. DISCUSSED ABOUT USING NICOTINE PATCHOR LOZENGES , HE AGREES TO TRY PATCHES . Code(s): F17.200 - Nicotine dependence, unspecified, uncomplicated Category: Social Hx Plan: NICOTINE PATCH 14 MG APPLY 1 PATCH DAILY. Medications: New nicotine 1 patch transdermal DAILY 28 days 28 ea 2RF QUIT SMOKING Coding Level of Care Code Est Pt Level 3 (37211) Diagnoses COPD (chronic obstructive pulmonary disease) J44.9 Obesity (BMI 30-39.9) E66.9 WESLY (obstructive sleep apnea) G47.33 Smoker unmotivated to quit F17.200
== END 2023-06-24 15:04 | disposition home or self-care (01) ==
PROVIDERS: PCP Internal Medicine; Visit Provider Internal Medicine
DX: J44.9 Chronic obstructive pulmonary disease, unspecified (principal); E66.9 Obesity, unspecified; G47.33 Obstructive sleep apnea (adult) (pediatric); F17.200 Nicotine dependence, unspecified, uncomplicated
CPT/HCPCS: 99213

== ENCOUNTER → 2023-06-24 14:04 | Outpatient (BNVA) | payer OTHER, SELFPAY | PROVIDERS: PCP Internal Medicine; Visit Provider Internal Medicine | DX: G47.33 Obstructive sleep apnea (adult) (pediatric) (principal); J44.9 Chronic obstructive pulmonary disease, unspecified; E66.9 Obesity, unspecified; F17.210 Nicotine dependence, cigarettes, uncomplicated | CPT/HCPCS: 99212 ==

== ENCOUNTER → 2023-06-29 11:51 | Outpatient (AMB) | payer OTHER, SELFPAY ==
[2023-06-29 12:00] VITALS: BP 154/100; PULSE 86; O2SAT 95; BMI 36.7
--- NOTE | 2023-06-29 12:00 | A.OFFPC_ITS ---
Vital Signs 06/29/23 12:00 Height 6 ft 2 in Weight 286 lb BMI 36.7 BP 154/100 H Blood Pressure Location Rt brachial Position Sitting Pulse 86 Pulse Source Pulse Oximeter Pulse Oximetry (%) 95 Oxygen Delivery Method Room Air Comment Patient just took his blood pressure medicine just before coming to the cli Intake Visit Reasons: 6 Month follow up Intake Note: Pt is here today for his 6 months f/u Allergies No Known Allergies Allergy (Verified 06/29/23 13:24) Medication List - Last Reconciled 06/29/23 by Riya Olmos MD amlodipine 5 mg PO DAILY aspirin 81 mg PO DAILY atorvastatin 40 mg PO QPM [bed rail As directed] blood-glucose sensor ([employer] G6 Sensor device) As directed change every 10 days blood-glucose transmitter ([employer] G6 Transmitter device) As directed duloxetine 60 mg PO DAILY empagliflozin (Jardiance) 25 mg PO DAILY fluticasone propionate 50 mcg/actuation 1 spray intranasal DAILY FreeStyle Lancets (lancets) USE TO TEST FINGER STICK BLOOD SUGAR 3 (THREE) TIMES A DAY NS gabapentin 300 mg PO Q8H 30 days [Hand rails As directed] hydrochlorothiazide 12.5 mg PO QAM insulin aspart U-100 (Novolog FlexPen U-100 Insulin aspart) 30 units (0.3 mL) subcut TID insulin glargine (Lantus Solostar U-100 Insulin) 48 units (0.48 mL) subcut QPM insulin syringe-needle U-100 (Comfort EZ Insulin Syringe) USE WITH insulin two (2) times a day ipratropium-albuterol 0.5 mg-3 mg(2.5 mg base)/3 mL 3 mL inhalation QID PRN ketoconazole 2% 1 appl topical BID loratadine 10 mg PO DAILY PRN metoprolol tartrate 50 mg PO BID nicotine 1 patch transdermal DAILY 28 days nortriptyline 50 mg PO BEDTIME omega-3 acid ethyl esters (Lovaza) 2 caps PO BID [overbed table with wheels As directed] pen needle, diabetic (Comfort EZ Pen [place]) USE DIRECTED 3 (THREE) TIMES A DAY prazosin 1 mg PO BEDTIME [shower bar As directed] [Shower seat As directed] Symbicort 160-4.5 mcg/actuation (budesonide-formoterol) 2 puffs inhalation Q12H NS tamsulosin 0.4 mg PO DAILY tirzepatide (Mounjaro) 5 mg (0.5 mL) subcut QWEEK [wheelchair As directed] [wheelchair ramp Pt is wheelchair bound, needs a ramp to exit the front door and 6 steps to get to the sidewalk] Tobacco use date assessed: 06/29/23 Dental Screening Dental Screen Date: 06/29/23 Did you have a dental visit in the last 12 months?: No Was dental information given to patient?: Patient declined HPI 6 Month follow up HPI Details 52-year-old male, here today for follow- up, he only speaks Kiswahili, h istory and physical obtained through a registered Kiswahili speaking staff interpreter. 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 His latest hemoglobin A1c was at 6.7%, and states that he has been compliant with taking his medications. He sees Dr. Del Valle for Nephrology consultation regarding his chronic kidney disease stage 3 , probably has underlying hypertensive diabetic kidney disease. He is currently on amlodipine, and hydrochlorothiazide results metoprolol tartrate. Goal is to slow the portion renal disease. Continue to avoid nephrotoxic agents including NSAIDs. He has mild obstructive sleep apnea, not using CPAP, and combined asthma and COPD, currently on Symbicort and using DuoNeb updrafts which has been helping told his symptoms continues to smoke cigarettes, but is trying to cut back now down to 15 cigarettes a day. Use here today, requesting a prescription for handle bars to be placed in his shower and shower seat, as he has difficulty with prolonged standing and ambulation. [facility] Medical History History of CVA with residual deficit Left cervical lymphadenopathy Obesity (BMI 30-39.9) Normocytic normochromic anemia COPD (chronic obstructive pulmonary disease) Chronic cough Cigarette smoker Cough Smoker unmotivated to quit RODGER (obstructive sleep apnea) Generalized anxiety disorder 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 Essential hypertension Allergic rhinitis Mixed dyslipidemia Amputation, toe, traumatic Vitamin D deficiency Diabetes mellitus with neuropathy Diabetes mellitus with hyperglycemia, with long-term current use of insulin Osteoarthritis Fibromyalgia Diabetic peripheral angiopathy Spondylosis of cervical spine Diabetic neurogenic arthropathy Surgical History History of foot surgery Family History Father HTN (hypertension) Diabetes Mental health disorder Mother HTN (hypertension) Brother Stroke Social History Household Members: Spouse and Children Housing: Apartment Alcohol intake: never Patient Tobacco Use Status: Current someday Tobacco user Cigarettes Per Day: 3 Years Smoked: 36 Packs per year/per ci.40 e-Cigarette/Vaping Use: Never Used Current occupational status: disabled Cognitive needs: No Hearing needs: No Vision needs: No Questionnaire PHQ-9 Over the last 2 weeks, how often have you been bothered by any of the following problems? 88022 - PHQ-9 Billing: Patient declined-do not bill Source: Developed by Drs. Zachary Luis, Daphnie Nina, Froylan Jose and colleagues, with an educational samuel from [employer]. Thrive Questionnaire Date Thrive assessed: 06/29/23 What is your living situation today?: I choose not to answer this question Within the past 12 months, did the food you bought not last and you didn't have the money to get more?: I choose not to answer this question Within the past 12 months, did you worry whether your food would run out before you got money to buy more?: I choose not to answer this question Do you have trouble paying for medicines?: I choose not to answer this question Do you have trouble getting transportation to medical appointments?: I choose not to answer this question Do you have trouble paying your heating and electricity bill?: I choose not to answer this question Do you have trouble taking care of your child, family member or friend?: I choose not to answer this question Do you have trouble with day-to-day activities such as bathing, preparing meals, shopping, managing finances, etc.?: I choose not to answer this question Are you currently unemployed and looking for a job?: I choose not to answer this question Are you interested in more education?: I choose not to answer this question THRIVE Score: 0 DEBORAH-7 AMB Questionnaire DEBORAH-7 Date DEBORAH - 7 assessed: 06/29/23 Source: Developed by DrsKevin Luis, Daphnie Nina, Froylan Jose and colleagues, with an educational samuel from [employer]. DEBORAH-7 Assessment Billing DEBORAH-7 Assessment Tool: pt declined-do not bill Review of Systems Const All systems reviewed & are unremarkable except as noted in HPI and below Denies fever(s), Denies malaise and Reports weakness (lower extremities) Eyes Reports no additional complaints ENT Reports no additional complaints Card Denies chest pain at rest, Denies irregular heart rhythm and Denies leg edema Resp Reports no additional complaints GI Reports no additional complaints Reports no additional complaints Musc Reports abnormal gait (He has weakness of both lower extremities and is non ambulatory, uses wheel), Reports back pain and Reports muscle weakness Neuro Reports abnormal gait (He has weakness of both lower extremities and is non ambulatory, uses wheel), Reports paresthesias (Both) and Reports weakness (lower extremities) Psych Reports no additional complaints Jomar/Lymph Denies easy bleeding and Denies easy bruising Aller/Immun Reports no additional complaints Physical exam (Primary Care) Vital Signs: Last Vital Signs Pulse 86 06/29/23 12:00 BP 154/100 H 06/29/23 12:00 Pulse Ox 95 06/29/23 12:00 Oxygen Delivery Method Room Air 06/29/23 12:00 BMI result Body Mass Index 36.7 Tobacco/Smoking Status: Tobacco use Status Tobacco use date assessed 06/29/23 06/29/23 12:10 Patient Tobacco Use Status Current someday Tobacco 06/29/23 12:02 e-Cigarette/Vaping Use Never Used 06/29/23 12:02 Thrive Assessment: Date of Thrive Assessment Date Thrive assessed 06/29/23 06/29/23 12:19 Const Other: Const General:?no acute distress, uses wheelchair Nutritional Appearance:?obese Orientation/consciousness:?patient oriented x3 HENMT Mouth:?Normal oral and palatal mucosa present and moist mucous membranes Eyes General:?appearance normal, both eyes and all related structures Neck Neck:?Yes full ROM, Yes no lymphadenopathy and Yes supple Resp Effort & Inspection:?normal respiratory effort and able to speak in complete sentences Auscultation:?clear to auscultation bilaterally Cardio Rate:?regular rate Rhythm:?regular rhythm Heart sounds:?S1 normal heart sound present and S2 normal heart sound present GI Inspection:?Yes obesity Palpation (GI):?Soft to palpation, nontender and no guarding Auscultation:?normal bowel sounds Neuro General:?patient oriented x3, moves all extremities, no focal motor deficits, CN's II-XI intact bilaterally and decreased sensation to monofilament Extrem Other: Absent right 1st to 4th toes Assessment and Plan Assessment & Plan (1) Diabetic neurogenic arthropathy: Code(s): E11.610 - Type 2 diabetes mellitus with diabetic neuropathic arthropathy (2) Diabetic peripheral angiopathy: Code(s): E11.51 - Type 2 diabetes mellitus with diabetic peripheral angiopathy without gangrene (3) Polyarthralgia: Code(s): M25.50 - Pain in unspecified joint (4) Amputation, toe, traumatic: Code(s): S98.139A - Complete traumatic amputation of one unspecified lesser toe, initial encounter Qualifiers: Encounter type: subsequent encounter Laterality: right Qualified Code(s): S98.131D - Complete traumatic amputation of one right lesser toe, subsequent encounter (5) Weakness of both lower extremities: Code(s): R29.898 - Other symptoms and signs involving the musculoskeletal system (6) History of CVA with residual deficit: Code(s): I69.30 - Unspecified sequelae of cerebral infarction Plan Currently under the care of endocrine, pulmonary and nephrology. Prescription sent to [facility] for hand rails to be installed in shower and shower seat to use when bathing Medications: New [Hand rails] As directed 3 ea 0RF E11.51 - Type 2 diabetes mellitus with diabetic peripheral angiopathy without gangrene, E11.610 - Type 2 diabetes mellitus with diabetic neuropathic arthropathy, I69.30 - Unspecified sequelae of cerebral infarction, M25.50 - Pain in unspecified joint, R29.898 - Other symptoms and signs involving the musculoskeletal system, S98.131D - Complete traumatic amputation of one right lesser toe, subsequent encounter [Shower seat] As directed 1 ea 0RF Bilateral leg weakness, hixof CVA withdeficits E11.40 - Type 2 diabetes mellitus with diabetic neuropathy, unspecified, I69.30 - Unspecified sequelae of cerebral infarction, R29.898 - Other symptoms and signs involving the musculoskeletal system, S98.131D - Complete traumatic amputation of one right lesser toe, subsequent encounter Coding Level of Care Code Est Pt Level 4 (90329) Diagnoses Diabetic neurogenic arthropathy E11.610 Diabetic peripheral angiopathy E11.51 Polyarthralgia M25.50 Traumatic amputation of toe of right foot, subsequent encounter S98.131D Encounter type: subsequent encounter Laterality: right Weakness of both lower extremities R29.898 History of CVA with residual deficit I69.30
== END ==
PROVIDERS: PCP Internal Medicine; Visit Provider Internal Medicine
DX: E11.610 Type 2 diabetes mellitus with diabetic neuropathic arthropathy (principal); E11.51 Type 2 diabetes mellitus with diabetic peripheral angiopathy without gangrene; M25.50 Pain in unspecified joint; S98.131D Complete traumatic amputation of one right lesser toe, subsequent encounter; R29.898 Other symptoms and signs involving the musculoskeletal system; I69.30 Unspecified sequelae of cerebral infarction
CPT/HCPCS: 99214

== ENCOUNTER 2023-07-27 13:47 | Outpatient (AMB) | payer OTHER, SELFPAY ==
--- NOTE | 2023-07-27 13:50 | HO.NEPHOV ---
Vital Signs 07/27/23 13:51 07/27/23 14:06 Height 6 ft 2 in BP 156/90 H 130/70 Blood Pressure Location Rt brachial Rt brachial Position Sitting Sitting Pulse 77 Pulse Source Pulse Oximeter Pulse Oximetry (%) 96 Oxygen Delivery Method Room Air Intake Visit Reasons: CKD / 3 MO FU/ Conf Adult Care Provider Required: No Accompanied by: Son Allergies No Known Allergies Allergy (Verified 07/27/23 13:53) HPI Comments Details: Ana is a middle age man with a history of longstanding diabetes mellitus since age 35, obesity and hypertension was found to have chronic kidney disease with a serum creatinine of 2.17 as of November 2022. He was also found proteinuria of 1353 back in February of 2022. He has been referred here for evaluation of CKD and proteinuria. He was accompanied by his son who was helpful in translation. 01/27/2023 Jam is complaining of pain in his right hip radiating down his legs. No urinary symptoms. He did not undergo lab work as outlined. 04/27/23;Doing better;Did not take his meds today 07/27/2023. Jam was accompanied by son today. He has in a wheelchair. Denies any new complaints. Blood sugar is better controlled [facility] Medical History History of CVA with residual deficit Left cervical lymphadenopathy Obesity (BMI 30-39.9) Normocytic normochromic anemia COPD (chronic obstructive pulmonary disease) Chronic cough Cigarette smoker Cough Smoker unmotivated to quit RODGER (obstructive sleep apnea) Generalized anxiety disorder 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 Essential hypertension Allergic rhinitis Mixed dyslipidemia Amputation, toe, traumatic Vitamin D deficiency Diabetes mellitus with neuropathy Diabetes mellitus with hyperglycemia, with long-term current use of insulin Osteoarthritis Fibromyalgia Diabetic peripheral angiopathy Spondylosis of cervical spine Diabetic neurogenic arthropathy Surgical History History of foot surgery Family History Father HTN (hypertension) Diabetes Mental health disorder Mother HTN (hypertension) Brother Stroke Social History Household Members: Spouse and Children Housing: Apartment Alcohol intake: never Patient Tobacco Use Status: Current someday Tobacco user Cigarettes Per Day: 3 Years Smoked: 36 e-Cigarette/Vaping Use: Never Used Current occupational status: disabled Cognitive needs: No Hearing needs: No Vision needs: No Physical Exam Vital Signs: Last Vital Signs Pulse 77 07/27/23 13:51 BP 130/70 07/27/23 14:06 Pulse Ox 96 07/27/23 13:51 Oxygen Delivery Method Room Air 07/27/23 13:51 Const General: comfortable Nutritional Appearance: well nourished Orientation/consciousness: patient oriented x3 HEENT Head: No normal to inspection Mouth: moist mucous membranes Neck Neck: Yes supple and Yes no JVD Resp Auscultation: clear to auscultation bilaterally and no rales Cardio Jugular venous distension: no JVD Palpation: no palpable S3 and no palpable S4 Heart sounds: no rubs GI Palpation (GI): Soft to palpation and nontender Percussion: No Fluid wave present General: Yes no CVA tenderness Back/Spine/Pelvis Back: no CVA tenderness Skin General skin exam: no rashes or lesions noted Neuro General: patient oriented x3 Extrem General: Yes no pedal edema and No clubbing Results Reviewed Results Reviewed: January 2023 US renal BI Subcentimeter benign-appearing renal cyst, no follow-up imaging recommended. Otherwise unremarkable renal ultrasound. Nephrology Results: No Data to Display Assessment & Plan Assessment & Plan (1) CKD (chronic kidney disease) stage 3, GFR 30-59 ml/min: Code(s): N18.30 - Chronic kidney disease, stage 3 unspecified Category: Medical Qualifiers: Chronic kidney disease stage 3 subtype: stage 3a (GFR 45-59) Qualified Code(s): N18.31 - Chronic kidney disease, stage 3a (2) Proteinuria due to type 2 diabetes mellitus: Code(s): E11.29 - Type 2 diabetes mellitus with other diabetic kidney complication; R80.9 - Proteinuria, unspecified Category: Medical Plan Middle-aged man with obesity hypertension diabetes mellitus with thirst CKD. Recent serum creatinine is 2.27. Nephrotic range proteinuria most likely due to underlying diabetic nephropathy. Goal is to slow the portion renal disease. Continue to avoid nephrotoxic agents including NSAIDs. Blood pressure Goal < 130/80 Continue with angiotensin blockade. Discussed weight loss. Discussed compliance He continues have pain in his right hip going down the legs. follow-up with his PCP for further evaluation of sciatica. Encouraged and avoid NSAIDs. DM- Discussed importance to control of blood sugar Continue SGLT-2 inhibitors Orders: Orders Parathyroid Hormone Intact Today N18.31 - Chronic kidney disease, stage 3a Protein Electrophoresis, Serum Today N18.31 - Chronic kidney disease, stage 3a Complete Blood Count no Diff Today N18.31 - Chronic kidney disease, stage 3a Coding Level of Care Code Est Pt Level 4 (14702) Diagnoses Stage 3a chronic kidney disease N18.31 Chronic kidney disease stage 3 subtype: stage 3a (GFR 45-59) Proteinuria due to type 2 diabetes mellitus E11.29; R80.9
[2023-07-27 13:51] VITALS: BP 156/90; PULSE 77; O2SAT 96
[2023-07-27 14:06] VITALS: BP 130/70
== END 2023-07-27 14:07 | disposition home or self-care (01) ==
PROVIDERS: PCP Internal Medicine; Visit Provider Internal Medicine Hypertension Specialist
DX: N18.31 Chronic kidney disease, stage 3a (principal); E11.29 Type 2 diabetes mellitus with other diabetic kidney complication; R80.9 Proteinuria, unspecified
CPT/HCPCS: 99214

== ENCOUNTER → 2023-07-27 13:47 | Outpatient (BNVA) | payer OTHER, SELFPAY | PROVIDERS: PCP Internal Medicine; Visit Provider Internal Medicine Hypertension Specialist | DX: E11.29 Type 2 diabetes mellitus with other diabetic kidney complication (principal); N18.31 Chronic kidney disease, stage 3a; R80.9 Proteinuria, unspecified | CPT/HCPCS: 99212 ==

== ENCOUNTER 2023-08-03 13:49 | Outpatient (AMB) | payer OTHER, SELFPAY ==
--- NOTE | 2023-08-03 14:26 | A.OFFVIS_ITS ---
Intake Intake Visit Reasons: DM/LVM Wind Turbine Performance Engineer Required: Yes Wind Turbine Performance Engineer Language: Tactical Intelligence Officer Name: Caitie [facility] Information Interpreted: non-clinical & clinical Accompanied by: Other Relationship Allergies No Known Allergies Allergy (Verified 07/27/23 13:53) HPI Comprehensive Diabetes Asmnt Most Recent Diabetes Results: Microalb/Creat Ratio 1353.7 ug/mg cr 03/17/22 Cholesterol 185 mg/dL (<200) 12/01/22 HDL Cholesterol 24 mg/dL (>40) L 12/01/22 Triglycerides 246 mg/dL (<150) H 12/01/22 Creatinine 2.29 mg/dL (0.5-1.4) H 01/27/23 Blood Urea Nitrogen 37 mg/dL (9-16) H 01/27/23 Sodium 139 mmol/L (135-145) 01/27/23 Potassium 4.3 mmol/L (3.3-5.1) 01/27/23 Chloride 108 mmol/L (96-108) 01/27/23 Carbon Dioxide 22 mmol/L (22-29) 01/27/23 Calcium 9.4 mg/dL (8.4-10.2) 01/27/23 AST 12 U/L (5-37) 12/01/22 ALT 9 U/L (0-40) 12/01/22 Total Protein 7.0 g/dL (6.5-8.0) 12/01/22 Albumin 3.0 g/dL (3.5-5.0) L 12/01/22 [facility] Medical History History of CVA with residual deficit Left cervical lymphadenopathy Obesity (BMI 30-39.9) Normocytic normochromic anemia COPD (chronic obstructive pulmonary disease) Chronic cough Cigarette smoker Cough Smoker unmotivated to quit RODGER (obstructive sleep apnea) Generalized anxiety disorder 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 Essential hypertension Allergic rhinitis Mixed dyslipidemia Amputation, toe, traumatic Vitamin D deficiency Diabetes mellitus with neuropathy Diabetes mellitus with hyperglycemia, with long-term current use of insulin Osteoarthritis Fibromyalgia Diabetic peripheral angiopathy Spondylosis of cervical spine Diabetic neurogenic arthropathy Surgical History History of foot surgery Family History Father HTN (hypertension) Diabetes Mental health disorder Mother HTN (hypertension) Brother Stroke Social History Household Members: Spouse and Children Housing: Apartment Alcohol intake: never Patient Tobacco Use Status: Current someday Tobacco user Cigarettes Per Day: 3 Years Smoked: 36 e-Cigarette/Vaping Use: Never Used Current occupational status: disabled Cognitive needs: No Hearing needs: No Vision needs: No Assessment & Plan Assessment & Plan (1) Proteinuria due to type 2 diabetes mellitus: Code(s): E11.29 - Type 2 diabetes mellitus with other diabetic kidney complication; R80.9 - Proteinuria, unspecified Plan: Personal Continuous Glucose Monitor: Patients CGM information reviewed Reviewed patient's sensor data: Hypoglycemia: ? 0% Hyperglycemia:? 63% Time in Range:?37% Average glucose for the last 2 weeks?195 mg/dL Patient's CGM average glucose is closer to an A1c of 8% Patient's last A1c 5.9% on 07/21/2023, patient has stage 3 kidney disease, explained to patient that A1c does not correlate to patient's sensor values. Explained to patient that 1 of the functions of the kidneys is to help body make red blood cells, if red blood cell count is low then A1c might not represent act ual glucose level. Patient does have fasting labs entered into computer, suggested to patient he had fasting labs drawn Discussed with patient increasing Mounjaro dose from 5 mg to 7.5 mg, message sen t to Dr. Mcneil to request new prescription Reviewed how to interpret trend arrows Reminded patient that to check finger sticks if symptoms do not match sensor reading. Discussed lag time between finger stick and sensor data.? Patient able to insert sensor independently at home without issue.? Portions of this note were created using voice recognition software, please excuse any words or phrases that may have been misinterpreted. Patient Instructions: Patient will follow-up with certified lactation educator in 4 month Coding Level of Care Code Est Pt Level 1 (92533) Diagnoses Proteinuria due to type 2 diabetes mellitus E11.29; R80.9
== END 2023-08-03 14:38 | disposition home or self-care (01) ==
PROVIDERS: PCP Internal Medicine; Visit Provider Registered Nurse Diabetes Educator
DX: E11.29 Type 2 diabetes mellitus with other diabetic kidney complication (principal); R80.9 Proteinuria, unspecified

== ENCOUNTER → 2023-08-03 13:49 | Outpatient (BNVA) | payer OTHER, SELFPAY | PROVIDERS: PCP Internal Medicine; Visit Provider Registered Nurse Diabetes Educator | DX: E11.29 Type 2 diabetes mellitus with other diabetic kidney complication (principal); R80.9 Proteinuria, unspecified | CPT/HCPCS: 99211 ==

== ENCOUNTER 2023-08-10 09:37 | Outpatient (REF) | payer OTHER, SELFPAY ==
[2023-08-10 10:28] LABS: MANUAL DIFF FLAG NO
[2023-08-10 11:03] LABS: Basophils Absolute Auto 0.1 X10*3/uL (0.0-0.2); Eosinophils Absolute Auto 0.4 X10*3/uL (0.0-0.4); Eosinophils Percent Auto 4.7 % (0-4); Hematocrit 37.8 % (42.0-52.0); Hemoglobin 11.8 g/dl (14.0-18.0); Imm Gran Abs Auto 0.05 X10*3/uL (0.00-0.03); Imm Gran Pct Auto 0.6 % (0.0-0.4); Lymphocytes Absolute Auto 1.2 X10*3/uL (1.2-4.9); Lymphocytes Percent Auto 14.9 % (20-40); Mean Corpuscular HGB Conc 31.2 g/dl (31.0-36.0); Mean Corpuscular Hemoglobin 27.2 pg (27.0-33.0); Mean Corpuscular Volume 87.1 fL (80.0-98.0); Mean Platelet Volume 10.8 fL (9.4-12.4); Monocytes Absolute Auto 0.6 X10*3/uL (0.1-1.2); Monocytes Percent Auto 7.1 % (2-11); Neutrophils Percent Auto 71.7 % (45-73); Platelet Count 275 X10*3/uL (160-400); Red Blood Count 4.34 X10*6/uL (4.60-5.80); Red Cell Distribution Width 13.8 % (11.0-16.0); White Blood Count 8.3 X10*3/uL (4.8-10.8)
[2023-08-10 11:36] LABS: Alanine Aminotransferase 10 U/L (0-40); Albumin Level 2.8 g/dL (3.5-5.0); Alkaline Phosphatase 74 U/L (39-117); Anion Gap 14 (12-20); Aspartate Amino Transferase 14 U/L (5-37); Bilirubin Total 0.3 mg/dL (0.0-1.0); Blood Urea Nitrogen 32 mg/dL (9-16); Calcium 8.2 mg/dL (8.4-10.2); Calcium 8.5 mg/dL (8.4-10.2); Carbon Dioxide 22 mmol/L (22-29); Carbon Dioxide 23 mmol/L (22-29); Chloride 108 mmol/L (96-108); Chloride 109 mmol/L (96-108); Estimated Glomerular Filt Rate 19; Glucose Random 205 mg/dL (60-115); Potassium 4.4 mmol/L (3.3-5.1); Potassium 4.8 mmol/L (3.3-5.1); Sodium 140 mmol/L (135-145); Sodium 141 mmol/L (135-145); Total Protein 6.2 g/dL (6.5-8.0)
[2023-08-10 13:08] LABS: Appearance Urine Clear; Color Urine Yellow; Glucose Urine UA >=1000 mg/dL (Negative); Leukocyte Esterase Urine Negative (Negative); Nitrite Urine Negative (Negative); PH 6.5 (5.0-9.0); UMIC TRIGGER UA YES; Urine Blood Small (1+) (Negative); Urine Ketones Negative (Negative); Urine Protein >=1000 (4+) mg/dL (Neg-Trace)
[2023-08-10 13:33] LABS: Bacteria Urine None Seen (None Seen); Hyaline Casts Urine 0-2 /LPF (0-2); RBC Urine 0-2 /HPF (0-2); Squamous Epithelial Cell Urine 0-2 /HPF (0-2); WBC Urine 0-5 /HPF (0-5)
[2023-08-10 14:06] LABS: Creatinine Urine 105.83 mg/dL
[2023-08-10 14:35] LABS: Total Protein Urine Random 1302 mg/dL (<12)
[2023-08-12 11:33] LABS: Prot Elec - Albumin 2.6 g/dL (3.8-4.8); Prot Elec - Alpha1 0.3 g/dL (0.2-0.3); Prot Elec - Alpha2 1.2 g/dL (0.5-0.9); Prot Elec - Beta 1 0.3 g/dL (0.4-0.6); Prot Elec - Beta 2 0.5 g/dL (0.2-0.5); Prot Elec - Gamma 0.7 g/dL (0.8-1.7); Prot Elec - Total Protein 5.6 g/dL (6.1-8.1)
== END 2023-08-10 09:38 | disposition home or self-care (01) ==
LOC: HO.LAB 09:37
PROVIDERS: PCP Internal Medicine; Visit Provider Internal Medicine Hypertension Specialist
DX: N18.30 Chronic kidney disease, stage 3 unspecified (principal); E11.29 Type 2 diabetes mellitus with other diabetic kidney complication; R80.9 Proteinuria, unspecified; N18.31 Chronic kidney disease, stage 3a
CPT/HCPCS: 36415; 80051; 80053; 81001; 82310; 82565; 82570; 83970; 84156; 84165; 84520; 85025; 85027

== ENCOUNTER 2023-10-01 15:20 | Outpatient (REF) | payer OTHER, SELFPAY ==
--- NOTE | ~2023-10-01 | XR_ITS ---
EXAMINATION: XR CHEST CLINICAL INFORMATION: Shortness of breath and cough. COMPARISON: Chest radiograph dated 03/10/2022. TECHNIQUE: 2 views of the chest were obtained. FINDINGS: Trace right-sided pleural effusion with patchy right middle and right lower lobe airspace opacities which are new when compared to prior examination and could represent atelectasis versus early pneumonia. No pneumothorax. Stable cardiomediastinal silhouette. XR/XR chest 2V IMPRESSION: Trace right-sided pleural effusion with patchy right middle and right lower lobe airspace opacities which are new when compared to the prior examination and could represent atelectasis versus early pneumonia. Electronically signed by: Greg Hsu MD 10/28/2023 08:59 PM EDT
== END 2023-10-01 15:21 | disposition home or self-care (01) ==
LOC: HO.XRAY 15:20
PROVIDERS: PCP Internal Medicine; Visit Provider Internal Medicine
DX: J44.9 Chronic obstructive pulmonary disease, unspecified (principal); J40 Bronchitis, not specified as acute or chronic; R05.3 Chronic cough
CPT/HCPCS: 71046; 99212

== ENCOUNTER 2023-10-01 15:20 | Outpatient (AMB) | payer OTHER, SELFPAY ==
[2023-10-01 15:36] VITALS: BP 140/92; PULSE 77; O2SAT 97
--- NOTE | 2023-10-01 15:36 | A.OFFVIS_ITS ---
Vital Signs 10/01/23 15:36 Height 6 ft 2 in BP 140/92 H Blood Pressure Location Lt brachial Position Sitting Pulse 77 Pulse Source Pulse Oximeter Pulse Oximetry (%) 97 Oxygen Delivery Method Room Air Intake Visit Reasons: wesly Intake Note: pt is here for follow up and states he has a cough, with phlegm since 09/18 and would like some help with this, and also nicotine patch refilled. pt would like a mask for his nebulizer rather than the pipe. [employer] Sprayer Insecticide Required: No Allergies No Known Allergies Allergy (Verified 10/01/23 16:34) Medication List - Last Reconciled 10/01/23 by Edmundo Hammond MD amlodipine 5 mg PO DAILY aspirin 81 mg PO DAILY atorvastatin 40 mg PO QPM [bed rail As directed] blood-glucose sensor (Dexcom G6 Sensor device) As directed change every 10 days blood-glucose transmitter (Dexcom G6 Transmitter device) As directed duloxetine 60 mg PO DAILY empagliflozin (Jardiance) 25 mg PO DAILY fluticasone propionate 50 mcg/actuation 1 spray intranasal DAILY FreeStyle Lancets (lancets) USE TO TEST FINGER STICK BLOOD SUGAR 3 (THREE) TIMES A DAY NS gabapentin 300 mg PO Q8H 30 days Grab bar one long bar 33-36 inches for inside the shower, one regular bar 18-24 inches for outside the shower [Hand rails As directed] hydrochlorothiazide 12.5 mg PO QAM insulin aspart U-100 (Novolog FlexPen U-100 Insulin aspart) 30 units (0.3 mL) subcut TID insulin glargine (Lantus Solostar U-100 Insulin) 48 units (0.48 mL) subcut QPM insulin syringe-needle U-100 (Comfort EZ Insulin Syringe) USE WITH insulin two (2) times a day ipratropium-albuterol 0.5 mg-3 mg(2.5 mg base)/3 mL 3 mL inhalation QID PRN ketoconazole 2% 1 appl topical BID loratadine 10 mg PO DAILY PRN metoprolol tartrate 50 mg PO BID nicotine 1 patch transdermal DAILY 28 days nortriptyline 50 mg PO BEDTIME omega-3 acid ethyl esters (Lovaza) 2 caps PO BID [overbed table with wheels As directed] pen needle, diabetic (Comfort EZ Pen Wallace) USE DIRECTED 3 (THREE) TIMES A DAY prazosin 1 mg PO BEDTIME [shower bar As directed] [Shower seat As directed] Symbicort 160-4.5 mcg/actuation (budesonide-formoterol) 2 puffs inhalation Q12H NS tamsulosin 0.4 mg PO DAILY tirzepatide (Mounjaro) 7.5 mg (0.5 mL) subcut QWEEK [wheelchair As directed] [wheelchair ramp Pt is wheelchair bound, needs a ramp to exit the front door and 6 steps to get to the sidewalk] Do you need a note to return to daycare/school/sports/work: No HPI HPI wesly: Details: THIS 52 YEARS OLD GENTLEMAN IS HERE FOR FOLLOW-UP AFTER 6 MONTHS FOR HIS COPD. HIS BREATHING HAS BEEN FAIRLY STABLE BUT FOR THE LAST 2 WEEKS HE HAS INCREASED COUGH, AND SHORTNESS OF BREATH. HAS DIFFICULTY IN EXPECTORATING THE MUCUS. HE DENIES ANY FEVER OR. CHILLS OR ANY CHEST PAIN HAS NOT BEEN ABLE TO USE HIS NEBULIZER EFFECTIVELY BECAUSE HE DOES NOT LIKE THE MOUTH PIECE. HE PREFERS TO USE THE FACE MASK . THIS GENTLEMAN IS GROSSLY OBESE, HIS HOME-BASED SLEEP STUDY SHOWED ONLY MILD OBSTRUCTIVE SLEEP APNEA MOSTLY IN SUPINE POSITION. FOR THIS REASON HE SLEEPS MOSTLY IN LATERAL POSITION AND CAN SLEEP OKAY. HE IS NOT IN ANY POSITION TO LOSE WEIGHT BECAUSE HE IS NOT ABLE TO WALK MUCH OR DO ANY EXERCISE ON ACCOUNT OF HIS CHRONIC BACK PAIN AND WEAKNESS OF LOWER EXTREMITIES. HE STILL SMOKES ABOUT 3 CIGARETTES A DAY. USING NICOTINE PATCH AND WANTS A REFILL . [facility] Medical History Bronchitis History of CVA with residual deficit Left cervical lymphadenopathy Obesity (BMI 30-39.9) Normocytic normochromic anemia COPD (chronic obstructive pulmonary disease) Chronic cough Cigarette smoker Cough Smoker unmotivated to quit WESLY (obstructive sleep apnea) Generalized anxiety disorder 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 Essential hypertension Allergic rhinitis Mixed dyslipidemia Amputation, toe, traumatic Vitamin D deficiency Diabetes mellitus with neuropathy Diabetes mellitus with hyperglycemia, with long-term current use of insulin Osteoarthritis Fibromyalgia Diabetic peripheral angiopathy Spondylosis of cervical spine Diabetic neurogenic arthropathy Surgical History History of foot surgery Family History Father HTN (hypertension) Diabetes Mental health disorder Mother HTN (hypertension) Brother Stroke Social History Household Members: Spouse and Children Housing: Apartment Alcohol intake: never Patient Tobacco Use Status: Current someday Tobacco user Cigarettes Per Day: 3 Years Smoked: 36 e-Cigarette/Vaping Use: Never Used Current occupational status: disabled Cognitive needs: No Hearing needs: No Vision needs: No Review of Systems Const All systems reviewed & are unremarkable except as noted in HPI and below Eyes Reports no additional complaints ENT Reports no additional complaints Card Denies chest pain at rest, Denies irregular heart rhythm and Denies leg edema Resp Reports as per HPI GI Reports no additional complaints Reports no additional complaints Musc Reports abnormal gait (He has weakness of both lower extremities and is non ambulatory, uses wheel), Reports back pain and Reports muscle weakness Skin/Breast Reports system reviewed and no additional complaints, except as documented Neuro Reports abnormal gait (He has weakness of both lower extremities and is non ambulatory, uses wheel) Psych Reports no additional complaints Endo Reports other (Being treated for diabetes mellitus) Aller/Immun Reports no additional complaints Physical Exam Vital Signs: Last Vital Signs Pulse 77 10/01/23 15:36 BP 140/92 H 10/01/23 15:36 Pulse Ox 97 10/01/23 15:36 Oxygen Delivery Method Room Air 10/01/23 15:36 The patient does appear to be moderately obese with a round face. He is sitting in the wheelchair but able to stand and walk, he appears to be comfortable. Const General: comfortable, no acute distress, alert and awake Orientation/consciousness: patient oriented x3 HEENT Head: Yes normal to inspection General nose exam: No nasal polyps present and No nasal discharge present Face and sinus: Yes sinuses nontender Mouth: oropharynx abnormals (Oropharynx is narrow and crowded, Mallampati class 4) Throat: Yes posterior oropharynx normal Eyes General: appearance normal, both eyes and all related structures Neck Neck: Yes normal visual inspection, Yes no lymphadenopathy, Yes trachea midline and Yes other (Neck circumference 18 in) Thyroid: Thyroid normal Chest Chest palpation & inspection: normal inspection of the chest, normal palpation of entire chest wall and no tenderness Resp Other: Percussion note is resonant, breath sounds are quite distant especially over t he basilar areas. He does have a few scattered wheezes and significant crepitations over the right lower lobe. Cardio Palpation: normal PMI Rate: regular rate Rhythm: regular rhythm Heart sounds: no gallops and no murmurs GI Palpation (GI): Soft to palpation, nontender, No hepatosplenomegaly present and no masses Auscultation: normal bowel sounds Back/Spine/Pelvis Thoracic/Lumbar Spine: thoraco-lumbar ROM limited Skin General skin exam: no rashes or lesions noted Neuro General: patient oriented x3 and No gait normal (Patient is non ambulatory, uses wheelchair) Cranial nerves: Yes CN's II-XII intact bilaterally Extrem Other: Both legs are very thin and weak, peripheral pulses are not palpable. General: Yes no clubbing, cyanosis or edema (Right foot shows previous amputation of the toes.) and Yes no calf tenderness Psych Appearance: grossly normal and well kempt Speech and movement: Normal speech and movement present Assessment & Plan Assessment & Plan (1) COPD (chronic obstructive pulmonary disease): Comment: HE HAS COMBINATION OF BRONCHIAL ASTHMA/COPD, FREQUENT COUGH AND INCREASED SHORTNESS OF BREATH SINCE LAST 2 WEEKS AFTER A BOUT OF UPPER RESPIRATORY INFECTION. Code(s): J44.9 - Chronic obstructive pulmonary disease, unspecified Category: Medical Plan: Chest x-ray is ordered to rule out pneumonia. Empirically started on doxycycline 100 b.i.d. for 10 days Continue to use ipratropium-albuterol solution in the nebulizer Q 6 hours while awake Prescription is sent for having a facemask to use with the nebulizer. Continue Symbicort 160-4.52 puffs b.i.d. (2) Bronchitis: Comment: At present he seems to have acute bronchitis may have an early pneumonia in the right lower lobe. Code(s): J40 - Bronchitis, not specified as acute or chronic Category: Medical Plan: X-ray chest ordered Started on doxycycline 100 b.i.dx !0 days . empirically (3) Chronic cough: Comment: His cough is chronic associated with the chronic obstructive pulmonary disease, and also aggravated by smoking At present his cough is increase probably due to acute bronchitis. Code(s): R05.3 - Chronic cough Category: Medical Plan: He is urged to quit smoking completely, otherwise his cough is not going to . Resolve completely May use Mucinex 600 mg b.i.d. p.r.n.. Orders: Orders XR chest 2V Today J40 - Bronchitis, not specified as acute or chronic, J44.9 - Chronic obstructive pulmonary disease, unspecified, R05.3 - Chronic cough Medications: New doxycycline hyclate 100 mg PO BID 20 tabs 0RF BRONCHITIS 10 days Coding Level of Care Code Est Pt Level 4 (94280) Diagnoses COPD (chronic obstructive pulmonary disease) J44.9 Bronchitis J40 Chronic cough R05.3
== END 2023-10-01 15:52 | disposition home or self-care (01) ==
PROVIDERS: PCP Internal Medicine; Visit Provider Internal Medicine
DX: J44.9 Chronic obstructive pulmonary disease, unspecified (principal); J40 Bronchitis, not specified as acute or chronic; R05.3 Chronic cough
CPT/HCPCS: 99214

== ENCOUNTER 2023-10-07 10:54 | Outpatient (AMB) | payer OTHER, SELFPAY ==
--- NOTE | 2023-10-07 11:00 | A.OFFVIS_ITS ---
Vital Signs 10/07/23 11:08 Height 6 ft 2 in BMI Reason not done Patient refused/unable BP 142/90 H Blood Pressure Location Rt brachial Position Sitting Pulse 76 Pulse Source Pulse Oximeter Intake Visit Reasons: DM/confirmed Intake Note: Patient presents today to re-establish treatment for Type 2 Diabetes Mellitus: Last Diabetic eye exam was on: DUE, has a coming up appt for Cataract Surgery Last Podiatry exam was on: Does not see a Thread Roller Most recent HbA1c: 7.7%, 10/07/2023 Random Glucose- 223mg/dL, Today Tile Ditcher Required: Yes Tile Ditcher Language: Splitting Machine Tender Services: Tile Ditcher Present (VIA VIDEO CALL) Tile Ditcher Name: MALIA Alvarado #[id number] Accompanied by: Self / Same As Patient Allergies No Known Allergies Allergy (Verified 10/07/23 11:01) Medication List - Last Reconciled 10/07/23 by Jeannette Naqvi MD amlodipine 5 mg PO DAILY aspirin 81 mg PO DAILY atorvastatin 40 mg PO QPM [bed rail As directed] blood-glucose sensor (Dexcom G6 Sensor device) As directed change every 10 days blood-glucose transmitter (Dexcom G6 Transmitter device) As directed doxycycline hyclate 100 mg PO BID 10 days duloxetine 60 mg PO DAILY empagliflozin (Jardiance) 25 mg PO DAILY fluticasone propionate 50 mcg/actuation 1 spray intranasal DAILY FreeStyle Lancets (lancets) USE TO TEST FINGER STICK BLOOD SUGAR 3 (THREE) TIMES A DAY NS gabapentin 300 mg PO Q8H 30 days Grab bar one long bar 33-36 inches for inside the shower, one regular bar 18-24 inches for outside the shower guaifenesin ER (Mucinex) 600 mg PO BID 15 days [Hand rails As directed] hydrochlorothiazide 12.5 mg PO QAM insulin aspart U-100 (Novolog FlexPen U-100 Insulin aspart) 30 units (0.3 mL) subcut TID insulin glargine (Lantus Solostar U-100 Insulin) 48 units (0.48 mL) subcut QPM insulin syringe-needle U-100 (Comfort EZ Insulin Syringe) USE WITH insulin two (2) times a day ipratropium-albuterol 0.5 mg-3 mg(2.5 mg base)/3 mL 3 mL inhalation QID PRN ketoconazole 2% 1 appl topical BID loratadine 10 mg PO DAILY PRN metoprolol tartrate 50 mg PO BID nicotine 1 patch transdermal DAILY 28 days nortriptyline 50 mg PO BEDTIME omega-3 acid ethyl esters (Lovaza) 2 caps PO BID [overbed table with wheels As directed] pen needle, diabetic (Comfort EZ [place]) USE DIRECTED 3 (THREE) TIMES A DAY prazosin 1 mg PO BEDTIME prednisone 10 mg PO BID 7 days [shower bar As directed] [Shower seat As directed] Symbicort 160-4.5 mcg/actuation (budesonide-formoterol) 2 puffs inhalation Q12H NS tamsulosin 0.4 mg PO DAILY tirzepatide (Mounjaro) 7.5 mg (0.5 mL) subcut QWEEK [wheelchair As directed] [wheelchair ramp Pt is wheelchair bound, needs a ramp to exit the front door and 6 steps to get to the sidewalk] HPI Comments Details: 52 YO M who is seen in consultation for T2DM at the request of PCP. Past medical: CKD, htn, hld, bronchitis (currently on prednisone) Initially diagnosed with T2DM at age 34 Current regimen Patient off metformin 1000 mg BID due to CKD Jardiance 25 mg QD Mounjaro 7.5 mg Qwkly -missed this week Lantus 48 units Novolog 30 units premeals . Dexcom download average 195with GMI at 8.0%. Target 40% range with 60% hyperglycemia, 0% hypoglycemia. One sensor fell off and then he didnt have any remaining Pattern shows persistent hyperglycemia throughout the day with mild spike in glucose after breakfast and dinner Family history of T2DM in father and brother have Type 2 DM. eye exam UTD, Has retinopathy. Has neuropathy, last foot exam , sees podiatry. CKD last Cr 3.36 with GFR <30 Has HLD, on statin. Had diabetes education. ROS CONSTITUTIONAL: Denies weight loss, fever and chills. HEENT: Denies changes in vision and hearing. RESPIRATORY: Denies SOB and cough. CV: Denies palpitations and CP GI: Denies abdominal pain, nausea, vomiting and diarrhea. : Denies dysuria and urinary frequency. MSK: Denies new myalgia and joint pain. SKIN: Denies rash and pruritus. NEUROLOGICAL: Denies headache PSYCHIATRIC: Denies recent changes in mood. PHYSICAL EXAM: GENERAL: in WC EYES: EOMI. Anicteric. HENT: Moist mucous membranes. No scleral icterus. No cervical lymphadenopathy. LUNGS: Clear to auscultation bilaterally. CARDIOVASCULAR: Regular rate and rhythm. No murmur. No JVD. ABDOMEN: Soft, non-tender +bs EXTREMITIES: Trace to 1+ b/l edema. Non-tender. SKIN: No foot rashes or lesions. Warm. NEUROLOGIC: No focal neurological deficits. CN II-XII grossly intact PSYCHIATRIC: Cooperative. Appropriate mood and affect [facility] Medical History Bronchitis History of CVA with residual deficit Left cervical lymphadenopathy Obesity (BMI 30-39.9) Normocytic normochromic anemia COPD (chronic obstructive pulmonary disease) Chronic cough Cigarette smoker Cough Smoker unmotivated to quit RODGER (obstructive sleep apnea) Generalized anxiety disorder 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 Essential hypertension Allergic rhinitis Mixed dyslipidemia Amputation, toe, traumatic Vitamin D deficiency Diabetes mellitus with neuropathy Diabetes mellitus with hyperglycemia, with long-term current use of insulin Osteoarthritis Fibromyalgia Diabetic peripheral angiopathy Spondylosis of cervical spine Diabetic neurogenic arthropathy Surgical History History of foot surgery Family History Father HTN (hypertension) Diabetes Mental health disorder Mother HTN (hypertension) Brother Stroke Social History Household Members: Spouse and Children Housing: Apartment Alcohol intake: never Patient Tobacco Use Status: Current someday Tobacco user Cigarettes Per Day: 3 Years Smoked: 36 e-Cigarette/Vaping Use: Never Used Current occupational status: disabled Cognitive needs: No Hearing needs: No Vision needs: No Physical Exam Vital Signs: Last Vital Signs Pulse 76 10/07/23 11:08 BP 142/90 H 10/07/23 11:08 Results AMB Hemoglobin A1c AMB Hemoglobin A1c 7.7 % Last Edit by RYLEE Palmer on 10/07/23 11:26 Results Reviewed Results Reviewed: Laboratory Last Values Glucose (Clinic) 223 mg/dL (60-115) H 10/07/23 11:09 Hgb A1c (Clinic) 7.7 % (4.0-6.0) H 10/07/23 11:25 Assessment & Plan Assessment & Plan (1) Diabetes mellitus with hyperglycemia, with long-term current use of insulin: Code(s): E11.65 - Type 2 diabetes mellitus with hyperglycemia; Z79.4 - FPC (current) use of insulin Category: Medical Qualifiers: Diabetes mellitus type: type 2 Qualified Code(s): E11.65 - Type 2 diabetes mellitus with hyperglycemia; Z79.4 - intermediate project manager (current) use of insulin Plan: Increase novolog from 30 TID to 30 breakfast, 34 breakfast and lunch. continue lantus 48 units (2) Diabetes mellitus with neuropathy: Code(s): E11.40 - Type 2 diabetes mellitus with diabetic neuropathy, unspecified Category: Medical Qualifiers: Diabetes mellitus type: type 2 Diabetes mellitus custodial insulin use: without equipment operator intermodal yard use Qualified Code(s): E11.40 - Type 2 diabetes mellitus with diabetic neuropathy, unspecified Plan: continue current medications (3) Essential hypertension: Code(s): I10 - Essential (primary) hypertension Category: Medical Plan: controlled (4) Insulin long-term use: Code(s): Z79.4 - FPC (current) use of insulin Category: Medical Plan: see above Orders: Orders AMB Hemoglobin A1c Today E11.29 - Type 2 diabetes mellitus with other diabetic kidney complication, R80.9 - Proteinuria, unspecified Medications: Changed From blood-glucose sensor (Dexcom G6 Sensor device) As directed change every 10 days 3 ea 5RF E11.65 - Type 2 diabetes mellitus with hyperglycemia, Z79.4 - intermediate project manager (current) use of insulin To Dexcom G6 Sensor (blood-glucose sensor) As directed change every 10 days LEE 9 ea 3RF NS E11.65 - Type 2 diabetes mellitus with hyperglycemia, Z79.4 - intermediate project manager (current) use of insulin From insulin aspart U-100 (Novolog FlexPen U-100 Insulin aspart) 30 units (0.3 mL) subcut TID 15 mL 1RF E11.65 - Type 2 diabetes mellitus with hyperglycemia, Z79.4 - intermediate project manager (current) use of insulin To insulin aspart U-100 (Novolog FlexPen U-100 Insulin aspart) Take 30 units subcutaneous breakfast, 34 units with lunch and dinner subcutaneously 3 times a day; 45 mL 1RF E11.65 - Type 2 diabetes mellitus with hyperglycemia, Z79.4 - FPC (current) use of insulin Coding Level of Care Code Est Pt Level 5 (76753) Diagnoses Type 2 diabetes mellitus with hyperglycemia, with long-term current use of insulin E11.65; Z79.4 Diabetes mellitus type: type 2 Type 2 diabetes mellitus with diabetic neuropathy, without long-term current use of insulin E11.40 Diabetes mellitus type: type 2 Diabetes mellitus custodial insulin use: without custodial use Essential hypertension I10 Insulin long-term use Z79.4
[2023-10-07 11:08] VITALS: BP 142/90; PULSE 76
[2023-10-07 11:16] LABS: Glucose, Whole Blood 223 mg/dL (60-115)
== END 2023-10-07 11:49 | disposition home or self-care (01) ==
PROVIDERS: PCP Internal Medicine; Visit Provider Internal Medicine
DX: E11.65 Type 2 diabetes mellitus with hyperglycemia (principal); Z79.4 Long term (current) use of insulin; E11.40 Type 2 diabetes mellitus with diabetic neuropathy, unspecified; I10 Essential (primary) hypertension; E11.29 Type 2 diabetes mellitus with other diabetic kidney complication; R80.9 Proteinuria, unspecified
CPT/HCPCS: 99214

== ENCOUNTER → 2023-10-07 10:54 | Outpatient (BNVA) | payer OTHER, SELFPAY | PROVIDERS: PCP Internal Medicine; Visit Provider Internal Medicine | DX: E11.65 Type 2 diabetes mellitus with hyperglycemia (principal); E11.22 Type 2 diabetes mellitus with diabetic chronic kidney disease; I12.9 Hypertensive chronic kidney disease with stage 1 through stage 4 chronic kidney disease, or unspecified chronic kidney disease; E11.40 Type 2 diabetes mellitus with diabetic neuropathy, unspecified; N18.9 Chronic kidney disease, unspecified; Z79.4 Long term (current) use of insulin | CPT/HCPCS: 82947; 83036; 99212 ==

== ENCOUNTER 2023-11-03 11:08 | Outpatient (AMB) | payer OTHER, SELFPAY ==
--- NOTE | 2023-11-03 11:09 | MHC.OFFVIS ---
Vital Signs 11/03/23 11:11 Height 6 ft 2 in BP 128/70 Blood Pressure Location Rt brachial Position Sitting Respiration 16 Pulse 72 Pulse Source Pulse Oximeter Pulse Oximetry (%) 95 Oxygen Delivery Method Room Air Intake Visit Reasons: COPD follow-up, Obstructive sleep apnea Allergies No Known Allergies Allergy (Verified 11/03/23 11:21) Medication List - Last Reconciled 11/03/23 by Edmundo Hammond MD amlodipine 10 mg PO DAILY aspirin 81 mg PO DAILY atorvastatin 40 mg PO QPM [bed rail As directed] blood-glucose transmitter (Dexcom G6 Transmitter device) As directed Dexcom G6 Sensor (blood-glucose sensor) As directed change every 10 days LEE NS doxycycline hyclate 100 mg PO BID 10 days duloxetine 60 mg PO DAILY fluticasone propionate 50 mcg/actuation 1 spray intranasal DAILY FreeStyle Lancets (lancets) USE TO TEST FINGER STICK BLOOD SUGAR 3 (THREE) TIMES A DAY NS gabapentin 300 mg PO Q8H 30 days Grab bar one long bar 33-36 inches for inside the shower, one regular bar 18-24 inches for outside the shower guaifenesin ER (Mucinex) 600 mg PO BID 15 days [Hand rails As directed] insulin aspart U-100 (Novolog FlexPen U-100 Insulin aspart) Take 30 units subcutaneous breakfast, 34 units with lunch and dinner subcutaneously 3 times a day; insulin glargine (Lantus Solostar U-100 Insulin) 48 units (0.48 mL) subcut QPM insulin syringe-needle U-100 (Comfort EZ Insulin Syringe) USE WITH insulin two (2) times a day ipratropium-albuterol 0.5 mg-3 mg(2.5 mg base)/3 mL 3 mL inhalation QID PRN ketoconazole 2% 1 appl topical BID nicotine 1 patch transdermal DAILY 28 days nortriptyline 50 mg PO BEDTIME omega-3 acid ethyl esters (Lovaza) 2 caps PO BID [overbed table with wheels As directed] pen needle, diabetic (Comfort EZ Pen [place]) USE DIRECTED 3 (THREE) TIMES A DAY prazosin 1 mg PO BEDTIME prednisone 10 mg PO BID 7 days [shower bar As directed] [Shower seat As directed] Symbicort 160-4.5 mcg/actuation (budesonide-formoterol) 2 puffs PO Q12H NS tamsulosin 0.4 mg PO DAILY tirzepatide (Mounjaro) 7.5 mg (0.5 mL) subcut QWEEK [wheelchair As directed] [wheelchair As directed] [wheelchair ramp Pt is wheelchair bound, needs a ramp to exit the front door and 6 steps to get to the sidewalk] Do you need a note to return to daycare/school/sports/work: No HPI HPI Obstructive sleep apnea: Details: 53 YEARS OLD GENTLEMAN IS BROUGHT IN TO THE OFFICE FOR FOLLOW-UP AFTER A RECENT HOSPITALIZATION. HE WAS ADMITTED [facility] FOR ACUTE EXACERBATION OF COPD. DURING HIS HOSPITALIZATION HE WAS STARTED ON CPAP THERAPY, FOR RESPIRATORY FAILURE. HE HAS PAST HISTORY OF OBSTRUCTIVE SLEEP APNEA, AND AFTER A SLEEP STUDY AT [facility] IN 2019 HE HAD BEEN STARTED ON CPAP THERAPY WITH NASAL MASK AND PRESSURE OF 14 CM. HE GAVE UP USING THE CPAP BECAUSE HE DID NOT LIKE THE MASK AND STRAPS. HE DID HAVE A HOME-BASED SLEEP STUDY THE EXACT DATE NOT KNOWN BUT HE WAS TOLD THAT HE HAS ONLY MILD SLEEP APNEA. NOW DURING HIS HOSPITALIZATION HE WAS TREATED WITH CPAP AND HE FELT BETTER. HE WAS TOLD THAT HE SHOULD CONSIDER USING CPAP THERAPY, AND HE COMES TO DISCUSS WITH ME. HIS SLEEP DURING THE NIGHT IS INTERRUPTED, HE FEELS IF HE IS NOT GETTING ENOUGH AIR. WAKES UP FREQUENTLY. DURING THE DAYTIME HE REMAINS TIRED AND SLEEPY. HE CONTINUES TO BE TREATED FOR CHRONIC OBSTRUCTIVE PULMONARY DISEASE, WHICH IS MODERATELY SEVERE BUT HAD BEEN RELATIVELY CONTROLLED WITH HIS MEDICATIONS. HIS CURRENT REGIMEN INCLUDES SYMBICORT 160-4.52 PUFFS B.I.D.. ALSO UPDRAFTS WITH IPRATROPIUM-ALBUTEROL SOLUTION Q.I.D. .( BUT HE DOES NOT HAVE THE SOLUTION AVAILABLE AT THIS TIME ) HE IS SMOKING ABOUT 3 CIGARETTES A DAY . [facility] Medical History Bronchitis History of CVA with residual deficit Left cervical lymphadenopathy Obesity (BMI 30-39.9) Normocytic normochromic anemia COPD (chronic obstructive pulmonary disease) Chronic cough Cigarette smoker Cough Smoker unmotivated to quit RODGER (obstructive sleep apnea) Generalized anxiety disorder 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 Essential hypertension Allergic rhinitis Mixed dyslipidemia Amputation, toe, traumatic Vitamin D deficiency Diabetes mellitus with neuropathy Diabetes mellitus with hyperglycemia, with long-term current use of insulin Osteoarthritis Fibromyalgia Diabetic peripheral angiopathy Spondylosis of cervical spine Diabetic neurogenic arthropathy Surgical History History of foot surgery Family History Father HTN (hypertension) Diabetes Mental health disorder Mother HTN (hypertension) Brother Stroke Social History Household Members: Spouse and Children Housing: Apartment Alcohol intake: never Patient Tobacco Use Status: Current someday Tobacco user Cigarettes Per Day: 3 Years Smoked: 36 e-Cigarette/Vaping Use: Never Used Current occupational status: disabled Cognitive needs: No Hearing needs: No Vision needs: No Review of Systems Const All systems reviewed & are unremarkable except as noted in HPI and below Eyes Reports no additional complaints ENT Reports no additional complaints Card Denies chest pain at rest, Denies irregular heart rhythm and Denies leg edema Resp Reports as per HPI GI Reports no additional complaints Reports no additional complaints Musc Reports abnormal gait (He has weakness of both lower extremities and is non ambulatory, uses wheel), Reports back pain and Reports muscle weakness Skin/Breast Reports system reviewed and no additional complaints, except as documented Neuro Reports abnormal gait (He has weakness of both lower extremities and is non ambulatory, uses wheel) Psych Reports no additional complaints Endo Reports other (Being treated for diabetes mellitus) Aller/Immun Reports no additional complaints Physical Exam Vital Signs: Last Vital Signs Pulse 72 11/03/23 11:11 Resp 16 11/03/23 11:11 BP 128/70 11/03/23 11:11 Pulse Ox 95 11/03/23 11:11 Oxygen Delivery Method Room Air 11/03/23 11:11 The patient does appear to be moderately obese with a round face. He is sitting in the wheelchair but able to stand and walk, he appears to be comfortable. Const General: comfortable, no acute distress, alert and awake Orientation/consciousness: patient oriented x3 HEENT Head: Yes normal to inspection General nose exam: No nasal polyps present and No nasal discharge present Face and sinus: Yes sinuses nontender Mouth: oropharynx abnormals (Oropharynx is narrow and crowded, Mallampati class 4) Throat: Yes posterior oropharynx normal Eyes General: appearance normal, both eyes and all related structures Neck Neck: Yes normal visual inspection, Yes no lymphadenopathy, Yes trachea midline and Yes other (Neck circumference 18 in) Thyroid: Thyroid normal Chest Chest palpation & inspection: normal inspection of the chest, normal palpation of entire chest wall and no tenderness Resp Other: Percussion note is resonant, breath sounds are quite distant especially over the basilar areas. He does not have any he crepitations or wheezes at this time . Cardio Palpation: normal PMI Rate: regular rate Rhythm: regular rhythm Heart sounds: no gallops and no murmurs GI Palpation (GI): Soft to palpation, nontender, No hepatosplenomegaly present and no masses Auscultation: normal bowel sounds Back/Spine/Pelvis Thoracic/Lumbar Spine: thoraco-lumbar ROM limited Skin General skin exam: no rashes or lesions noted Neuro General: patient oriented x3 and No gait normal (Patient is non ambulatory, uses wheelchair) Cranial nerves: Yes CN's II-XII intact bilaterally Extrem Other: Both legs are very thin and weak, peripheral pulses are not palpable. General: Yes no clubbing, cyanosis or edema (Right foot shows previous amputation of the toes.) and Yes no calf tenderness Psych Appearance: grossly normal and well kempt Speech and movement: Normal speech and movement present Assessment & Plan Assessment & Plan (1) COPD (chronic obstructive pulmonary disease): Comment: HE HAS COMBINATION OF BRONCHIAL ASTHMA/COPD, HAS BEEN RECENTLY TREATED FOR ACUTE EXACERBATION AND RESPIRATORY FAILURE. AT PRESENT HE IS DOING WELL EXCEPT FOR FREQUENT BOUTS OF COUGH WHICH SEEM TO BE RELATED TO CIGARETTE SMOKING. Code(s): J44.9 - Chronic obstructive pulmonary disease, unspecified Category: Medical Plan: CONTINUE TO USE SYMBICORT 160-4.52 PUFFS B.I.D.. USE IPRATROPIUM-ALBUTEROL SOLUTION IN THE NEBULIZER Q 6 HOURS WHILE AWAKE ( PRESCRIPTION SENT TO THE PHARMACY) (2) Obesity (BMI 30-39.9): Comment: HE IS GROSSLY OBESE, DIFFICULT FOR HIM TO LOSE WEIGHT. Code(s): E66.9 - Obesity, unspecified Category: Medical Plan: INSTRUCTED TO AVOID CONSUMING CARBOHYDRATES, BUT IT IS DIFFICULT FOR HIM TO COMPLY WITH THE DIET. HE IS NOT ABLE TO DO MUCH EXERCISE HE IS MOSTLY IN THE WHEELCHAIR. (3) RODGER (obstructive sleep apnea): Comment: HE DOES HAVE PAST HISTORY OF OBSTRUCTIVE SLEEP APNEA, HE HAD STOPPED USING THE CPAP. HIS LAST STUDY IN DECEMBER 2022 SHOWED ONLY MILD OBSTRUCTIVE SLEEP APNEA. DURING HIS RECENT HOSPITALIZATION, HE WAS TREATED WITH CPAP AND HE DID WELL. HE COMES TODAY ASKING FOR CPAP THERAPY, AND SEEMS TO BE MOTIVATED TO USE IT. Code(s): G47.33 - Obstructive sleep apnea (adult) (pediatric) Category: Medical Plan: I TOLD HIM THAT BECAUSE OF HIS PREVIOUS NONCOMPLIANCE, HE NEEDS TO HAVE A REPEAT SLEEP STUDY IN THE SLEEP LAB TO DETERMINE THE SEVERITY OF HIS RODGER AND TO FIND THE RIGHT PRESSURE WELL THE RIGHT KIND OF INTERFACE, FOR RESTARTING ON CPAP THERAPY. HE IS AGREEABLE. (4) Smoker unmotivated to quit: Comment: HE IS CUTTING DOWN ON HIS SMOKING CURRENTLY HE IS SMOKING 3 CIGARETTES A DAY. Code(s): F17.200 - Nicotine dependence, unspecified, uncomplicated Category: Social Hx Plan: TOLD HIM THAT HIS COUGH IS NOT GOING TO GO AWAY UNTIL HE STOP SMOKING COMPLETELY. DISCUSSED ABOUT USING NICOTINE PATCHOR LOZENGES , HE DOES HAVE NICOTINE PATCHES AT HOME AND IS USING DAILY. Orders: Orders RT PSG in-lab sleep study Today E66.9 - Obesity, unspecified, G47.33 - Obstructive sleep apnea (adult) (pediatric), J44.9 - Chronic obstructive pulmonary disease, unspecified Medications: New ipratropium-albuterol 0.5 mg-3 mg(2.5 mg base)/3 mL 3 mL inhalation Q6-8H 30 days PRN 360 mL 2RF SEVERE copd wheezing Coding Level of Care Code Est Pt Level 4 (26927) Diagnoses COPD (chronic obstructive pulmonary disease) J44.9 Obesity (BMI 30-39.9) E66.9 RODGER (obstructive sleep apnea) G47.33 Smoker unmotivated to quit F17.200
[2023-11-03 11:11] VITALS: BP 128/70; PULSE 72; RESP 16; O2SAT 95
== END 2023-11-03 11:33 | disposition home or self-care (01) ==
PROVIDERS: PCP Internal Medicine; Visit Provider Internal Medicine
DX: J44.9 Chronic obstructive pulmonary disease, unspecified (principal); E66.9 Obesity, unspecified; G47.33 Obstructive sleep apnea (adult) (pediatric); F17.200 Nicotine dependence, unspecified, uncomplicated
CPT/HCPCS: 99214

== ENCOUNTER → 2023-11-03 11:08 | Outpatient (BNVA) | payer OTHER, SELFPAY | PROVIDERS: PCP Internal Medicine; Visit Provider Internal Medicine | DX: E11.29 Type 2 diabetes mellitus with other diabetic kidney complication (principal); R80.9 Proteinuria, unspecified; J44.9 Chronic obstructive pulmonary disease, unspecified; G47.33 Obstructive sleep apnea (adult) (pediatric); E66.9 Obesity, unspecified; F17.210 Nicotine dependence, cigarettes, uncomplicated | CPT/HCPCS: 99211; 99212 ==

== ENCOUNTER 2023-11-03 12:22 | Outpatient (AMB) | payer OTHER, SELFPAY ==
--- NOTE | 2023-11-03 12:53 | MHC.AMDMED ---
Intake Intake Visit Reasons: DM Collections Agent Required: Yes Collections Agent Name: Pt's Daughter Accompanied by: Daughter Allergies No Known Allergies Allergy (Verified 11/03/23 11:21) HPI Comprehensive Diabetes Asmnt Most Recent Diabetes Results: No Data to Display [facility] Medical History Bronchitis History of CVA with residual deficit Left cervical lymphadenopathy Obesity (BMI 30-39.9) Normocytic normochromic anemia COPD (chronic obstructive pulmonary disease) Chronic cough Cigarette smoker Cough Smoker unmotivated to quit RODGER (obstructive sleep apnea) Generalized anxiety disorder 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 Essential hypertension Allergic rhinitis Mixed dyslipidemia Amputation, toe, traumatic Vitamin D deficiency Diabetes mellitus with neuropathy Diabetes mellitus with hyperglycemia, with long-term current use of insulin Osteoarthritis Fibromyalgia Diabetic peripheral angiopathy Spondylosis of cervical spine Diabetic neurogenic arthropathy Surgical History History of foot surgery Family History Father HTN (hypertension) Diabetes Mental health disorder Mother HTN (hypertension) Brother Stroke Social History Household Members: Spouse and Children Housing: Apartment Alcohol intake: never Patient Tobacco Use Status: Current someday Tobacco user Cigarettes Per Day: 3 Years Smoked: 36 e-Cigarette/Vaping Use: Never Used Current occupational status: disabled Cognitive needs: No Hearing needs: No Vision needs: No Assessment & Plan Assessment & Plan (1) Proteinuria due to type 2 diabetes mellitus: Code(s): E11.29 - Type 2 diabetes mellitus with other diabetic kidney complication; R80.9 - Proteinuria, unspecified Plan: Personal Continuous Glucose Monitor: Patient was recently Hospital for a week at [facility] in [place], patient's daughter stated he had fluid in his heart and in his kidney At [facility] they stopped Jardiance 25 mg daily HCTZ 12.5 mg daily Loratadine 10 mg Metformin 1000 mg b.i.d. And metoprolol 50 mg b.i.d. Mounjaro 7.5 mg weekly, patient had stopped Mounjaro several weeks prior to hospitalization, due to GI upset The reduce Lantus to 24 units daily NovoLog 2-6 units daily Patients CGM information reviewed Reviewed patient's sensor data: Hypoglycemia: ?0% Hyperglycemia:? 45% Time in Range:? 55% Average glucose for the last 2 weeks?179 mg/dL After review of glucose data patient's glucose levels are relatively stable at this time, considering the discontinuation of several of his diabetes medication. Recommended to patient he make appointment with Endocrine [facility] [facility] for medication review. If appropriate patient would like to restart Mounjaro 2.5 mg weekly, reports he did not have GI side effects at that dose. Recommended to patient he increase NovoLog before supper to 8 units, if he begins to experience hypoglycemia after supper go back to 6 units. Treat any episodes of hypoglycemia with rule of 15s, hypoglycemia handout given in Telugu Patient able to insert sensor independently at home without issue.? Portions of this note were created using voice recognition software, please excuse any words or phrases that may have been misinterpreted. Patient Instructions: Aumente NovoLog antes de la copy center associate a 8 unidades. Si comienza a experimentar hipoglucemia despu?s de la ashia, vuelva a 6 unidades. Trate cualquier hipoglucemia con la neal del 15 seg?n las instrucciones. Seguimiento con educador en diabetes 1 mes despu?s de la elliott con [employer] Coding Level of Care Code Est Pt Level 1 (33218) Diagnoses Proteinuria due to type 2 diabetes mellitus E11.29; R80.9
== END 2023-11-03 12:55 | disposition home or self-care (01) ==
PROVIDERS: PCP Internal Medicine; Visit Provider Registered Nurse Diabetes Educator
DX: E11.29 Type 2 diabetes mellitus with other diabetic kidney complication (principal); R80.9 Proteinuria, unspecified

== ENCOUNTER 2023-11-05 10:23 | Outpatient (AMB) | payer OTHER, SELFPAY ==
--- NOTE | 2023-11-05 10:55 | MHC.PC.OV ---
Vital Signs 11/05/23 11:02 Height 6 ft 2 in Weight 288 lb BMI 37.0 BP 130/82 Blood Pressure Location Lt brachial Position Sitting Pulse 76 Pulse Source Pulse Oximeter Pulse Oximetry (%) 96 Oxygen Delivery Method Room Air Intake Visit Reasons: med review/ HDF Intake Note: Pt is here today for a med review and HDF Allergies No Known Allergies Allergy (Verified 11/05/23 11:11) Medication List - Last Reconciled 11/05/23 by Riya Olmos MD amlodipine 10 mg PO DAILY aspirin 81 mg PO DAILY atorvastatin 40 mg PO QPM [bed rail As directed] blood-glucose transmitter (Dexcom G6 Transmitter device) As directed carvedilol 25 mg PO BID Dexcom G6 Sensor (blood-glucose sensor) As directed change every 10 days LEE NS duloxetine 60 mg PO DAILY fluticasone propionate 50 mcg/actuation 1 spray intranasal DAILY FreeStyle Lancets (lancets) USE TO TEST FINGER STICK BLOOD SUGAR 3 (THREE) TIMES A DAY NS furosemide mg PO TID gabapentin 300 mg PO Q8H 30 days Grab bar one long bar 33-36 inches for inside the shower, one regular bar 18-24 inches for outside the shower [Hand rails As directed] hydralazine 10 mg PO TID insulin aspart U-100 (Novolog FlexPen U-100 Insulin aspart) Take 6-8 units subcutaneous breakfast, 6-8 units with lunch and dinner subcutaneously 3 times a day; insulin glargine (Lantus Solostar U-100 Insulin) 24 units subcut QPM insulin syringe-needle U-100 (Comfort EZ Insulin Syringe) USE WITH insulin two (2) times a day ipratropium-albuterol 0.5 mg-3 mg(2.5 mg base)/3 mL 3 mL inhalation Q6-8H PRN 30 days ipratropium-albuterol 0.5 mg-3 mg(2.5 mg base)/3 mL 3 mL inhalation QID PRN isosorbide mononitrate ER 30 mg PO DAILY ketoconazole 2% 1 appl topical BID nicotine 1 patch transdermal DAILY 28 days nortriptyline 50 mg PO BEDTIME omega-3 acid ethyl esters (Lovaza) 2 caps PO BID [overbed table with wheels As directed] pen needle, diabetic (Comfort EZ Pen [place]) USE DIRECTED 3 (THREE) TIMES A DAY prazosin 1 mg PO BEDTIME [shower bar As directed] [Shower seat As directed] Symbicort 160-4.5 mcg/actuation (budesonide-formoterol) 2 puffs PO Q12H NS tamsulosin 0.4 mg PO DAILY tirzepatide (Mounjaro) 7.5 mg (0.5 mL) subcut QWEEK [wheelchair As directed] [wheelchair As directed] [wheelchair ramp Pt is wheelchair bound, needs a ramp to exit the front door and 6 steps to get to the sidewalk] Tobacco use date assessed: 11/05/23 Dental Screening Dental Screen Date: 11/05/23 Did you have a dental visit in the last 12 months?: No Did you have a dental problem in the last 6 months where you did not have access to dental care?: No Was dental information given to patient?: Patient declined HPI med review/ HDF HPI Details 53-year-old male with past medical history of morbid obesity, chronic kidney disease stage 4, peripheral vascular disease status post metatarsal amputations, hypertension, type 2 diabetes mellitus, asthma, hyperlipidemia, here today for follow-up after recent hospital discharge from [facility] where he was admitted with a crease shortness of breath. He was noted to be in hypertensive emergency and acute congestive heart failure, treated with nitroglycerin drip and increase carvedilol to 25 mg 1 tablet twice a day continued on amlodipine, Imdur 30 mg daily and hydralazine 30 minute 10 mg 3 times a day. Stay was complicated with development of acute kidney injury on CKD, likely cardiorenal, treated with diuresis and transitioned to oral Lasix 60 mg twice a day, as per recommendation by Dr. Gomez, nephrology. Echocardiogram done 10/27/2023 showed left ventricular size is normal, left ventricular wall thickness is moderately increased, LVEF 50-55%, LV systolic function is low normal, can not rule out anterior and lateral hypokinesis,, and there is Doppler evidence of increased filling pressures, left atrium is mildly dilated and right ventricular size and function appears grossly normal. EKG showed normal sinus rhythm with T-wave abnormality? Lateral ischemia with a ventricular rate of 77 beats per minute, no change found from EKG done 10/28/2023 As per daughter, he has an appointment already for follow-up with [facility] already scheduled. The patient was continued on aspirin 81 mg daily, atorvastatin 40 mg daily For treatment of his diabetes mellitus with neuropathy, he was continue on Lantus 24 units on discharge, sliding scale of insulin with meals, metformin and Jardiance was discontinued as GFR was less than 20.. He was placed on Tylenol and gabapentin for pain and continued on atorvastatin and for his neuropathy was continued on Tylenol and gabapentin . For his Depression and anxiety, currently on duloxetine 60 mg daily, resumed on nortriptyline and takes clonazepam as needed at bedtime for acute anxiety attack Patient states that his father and several brothers were diagnosed with carotid artery stenosis, would like to get checked, has been complaining of intermittent episodes of lightheadedness, history of CVA, but no syncopal attacks [facility] Medical History (Updated 11/05/23 @ 11:51 by Riya Olmos MD) Intermittent lightheadedness History of CVA with residual deficit Left cervical lymphadenopathy Obesity (BMI 30-39.9) Normocytic normochromic anemia COPD (chronic obstructive pulmonary disease) Cigarette smoker Smoker unmotivated to quit RODGER (obstructive sleep apnea) Generalized anxiety disorder 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 Essential hypertension Allergic rhinitis Mixed dyslipidemia Amputation, toe, traumatic Vitamin D deficiency Diabetes mellitus with neuropathy Diabetes mellitus with hyperglycemia, with long-term current use of insulin Osteoarthritis Fibromyalgia Diabetic peripheral angiopathy Spondylosis of cervical spine Diabetic neurogenic arthropathy Surgical History History of foot surgery Family History Father HTN (hypertension) Diabetes Mental health disorder Mother HTN (hypertension) Brother Stroke Social History Household Members: Spouse and Children Housing: Apartment Alcohol intake: never Patient Tobacco Use Status: Current someday Tobacco user Cigarettes Per Day: 3 Years Smoked: 36 e-Cigarette/Vaping Use: Never Used Current occupational status: disabled Cognitive needs: No Hearing needs: No Vision needs: No Questionnaire PHQ-9 Over the last 2 weeks, how often have you been bothered by any of the following problems? 1. Little interest or pleasure in doing things: several days 2. Feeling down, depressed, or hopeless: several days 3. Trouble falling or staying asleep, or sleeping too much: several days 4. Feeling tired or having little energy: several days 5. Poor appetite or overeating: several days 6. Feeling bad about yourself - or that you are a failure or have let yourself or your family down: several days 7. Trouble concentrating on things, such as reading the newspaper or watching television: several days 8. Moving or speaking so slowly that other people could have noticed. Or the opposite - being so fidgety or restless that you have been moving around a lot more than usual: several days 9. Thoughts that you would be better off or of hurting yourself in some way: several days Total score: 9 Depression Screening Interpretation: Positive Depression Screening Follow-up: Existing condition, In treatment and Community Mental Health Worker F/U Depression Screening Done: Yes Source: Developed by Drs. Zachary Luis, Daphnie Nina, Froylan Jose and colleagues, with an educational samuel from [employer]. Thrive Questionnaire Date Thrive assessed: 06/29/23 I am a: Patient What is your living situation today?: I have a steady place to live Within the past 12 months, did the food you bought not last and you didn't have the money to get more?: Never true Within the past 12 months, did you worry whether your food would run out before you got money to buy more?: Never true Do you have trouble paying for medicines?: No Do you have trouble getting transportation to medical appointments?: No Do you have trouble paying your heating and electricity bill?: No Do you have trouble taking care of your child, family member or friend?: No Do you have trouble with day-to-day activities such as bathing, preparing meals, shopping, managing finances, etc.?: No Are you interested in more education?: No Please select the resources that you would like help with: None Currently or been in a relationship where the following occur: I choose not to answer THRIVE Score: 0 AUDIT C Alcohol Use Questionnaire (AUDIT-C) 1. How often do you have a drink containing alcohol?: Never Total Score: 0 DEBORAH-7 AMB Questionnaire DEBORAH-7 Date DEBORAH - 7 assessed: 06/29/23 Feeling nervous, anxious, or on edge: 1 = Several days Not being able to stop or control worryin = Several days Worrying too much about different things: 1 = Several days Trouble relaxin = Several days Being so restless that it is hard to sit still: 1 = Several days Becoming easily annoyed or irritable: 1 = Several days Feeling afraid as if something awful might happen: 1 = Several days Total DEBORAH-7 score (0-4 normal; 5-9 mild; 10-14 moderate; 15-21 severe): 7 Source: Developed by Drs. Zachary Luis, Daphnie Nina, Froylan Jose and colleagues, with an educational samuel from [employer]. DEBORAH-7 Assessment Billing DEBORAH-7 Assessment Tool: DEBORAH-7 Assessment 06529 Review of Systems Const All systems reviewed & are unremarkable except as noted in HPI and below Eyes Reports no additional complaints ENT Reports no additional complaints Card Denies chest pain at rest, Denies irregular heart rhythm and Denies leg edema Resp Reports as per HPI GI Reports no additional complaints Reports no additional complaints Musc Reports abnormal gait (He has weakness of both lower extremities and is non ambulatory, uses wheel), Reports back pain and Reports muscle weakness Skin/Breast Reports system reviewed and no additional complaints, except as documented Neuro Reports abnormal gait (He has weakness of both lower extremities and is non ambulatory, uses wheel) Psych Reports no additional complaints Endo Reports other (Being treated for diabetes mellitus) Aller/Immun Reports no additional complaints Physical exam (Primary Care) BMI result Body Mass Index 37.0 Tobacco/Smoking Status: Tobacco use Status Tobacco use date assessed 06/29/23 11/05/23 10:57 Patient Tobacco Use Status Current someday Tobacco 11/05/23 10:57 e-Cigarette/Vaping Use Never Used 11/05/23 10:57 PHQ-9: PHQ-9 Score PHQ-9: Total score 9 11/05/23 10:57 Depression Screening Interpretation: Positive Depression Screening Follow-up: Existing condition, In treatment and Community Mental Health Worker F/U Thrive Assessment: Date of Thrive Assessment Date Thrive assessed 06/29/23 11/05/23 10:57 Currently or been in a relationship where the following occur: I choose not to answer Const Other: Daughter accompanying patient General: no acute distress and alert Nutritional Appearance: obese morbidly obese Orientation/consciousness: patient oriented x3 Limitations: wheelchair HENMT Ears: external ears normal, TM's normal bilaterally and EAC's normal General nose exam: Normal external nose present and No nasal discharge present Mouth: Normal oral and palatal mucosa present, oropharynx normal and moist mucous membranes Eyes General: appearance normal, both eyes and all related structures Neck Neck: Yes full ROM, Yes no lymphadenopathy and Yes supple Chest Chest palpation & inspection: normal inspection of the chest Resp Effort & Inspection: normal respiratory effort and able to speak in complete sentences Auscultation: clear to auscultation bilaterally Cardio Rate: regular rate Rhythm: regular rhythm Heart sounds: S1 normal heart sound present and S2 normal heart sound present GI Palpation (GI): Soft to palpation, nontender and no masses Auscultation: normal bowel sounds Back/Spine/Pelvis Back: No back tenderness Skin General skin exam: no rashes or lesions noted Neuro General: patient oriented x3 and no focal motor deficits Cranial nerves: Yes CN's II-XII intact bilaterally Cognition (Neuro): normal cognition Extrem General: Yes full ROM, Yes no pedal edema, Yes no calf tenderness, Yes amputation noted (For toes on the right, only the 5th toe remaining) and Yes edema (Pitting edema in both lower extremity) Psych Appearance: grossly normal and well kempt Mental Status: mental status grossly normal Speech and movement: Normal speech and movement present Affect: normal affect Attitude: cooperative Thought process: Normal thought process present Thought content: Normal thought content present Assessment and Plan Assessment & Plan (1) Intermittent lightheadedness: Code(s): R42 - Dizziness and giddiness Plan: Has normocytic normochromic anemia, repeat CBC ordered, as well as iron profile, likely due to chronic kidney disease, ordered bilateral carotid or ultrasound to rule out any stenosis, has strong pertinent positive family history (2) Normocytic normochromic anemia: Code(s): D64.9 - Anemia, unspecified Plan: Repeat another CBC with iron profile, basic metabolic panel, anemia likely due to CKD (3) CKD (chronic kidney disease) stage 3, GFR 30-59 ml/min: Code(s): N18.30 - Chronic kidney disease, stage 3 unspecified Qualifiers: Chronic kidney disease stage 3 subtype: stage 3a (GFR 45-59) Qualified Code(s): N18.31 - Chronic kidney disease, stage 3a Plan: Patient has been taken off metformin in Jardiance, currently on amlodipine 10 mg daily, carvedilol 25 mg twice a day, and furosemide 60 mg twice a day as well as hydralazine 10 mg 3 times a day. He has an appointment already scheduled with Dr. Del Valle next month (4) COPD (chronic obstructive pulmonary disease): Comment: HE HAS COMBINATION OF BRONCHIAL ASTHMA/COPD, Code(s): J44.9 - Chronic obstructive pulmonary disease, unspecified Plan: Currently followed by Pulmonary, who recently ordered another sleep study to be done. Currently on Symbicort, has DuoNeb by nebulizer treatment (5) Smoker unmotivated to quit: Comment: HE IS CUTTING DOWN ON HIS SMOKING CURRENTLY HE IS SMOKING 3 CIGARETTES A DAY. Code(s): F17.200 - Nicotine dependence, unspecified, uncomplicated Plan: Has nicotine patches which she has been using advised not to smoke and used the nicotine patch at same time. (6) RODGER (obstructive sleep apnea): Comment: HE DOES HAVE PAST HISTORY OF OBSTRUCTIVE SLEEP APNEA, HE HAD STOPPED USING THE CPAP. HIS LAST STUDY IN DECEMBER 2022 SHOWED ONLY MILD OBSTRUCTIVE SLEEP APNEA. DURING HIS RECENT HOSPITALIZATION, HE WAS TREATED WITH CPAP AND HE DID WELL. HE COMES TODAY ASKING FOR CPAP THERAPY, AND SEEMS TO BE MOTIVATED TO USE IT. Code(s): G47.33 - Obstructive sleep apnea (adult) (pediatric) Plan: Pulmonary ordered another sleep study to be done. Still pending (7) Generalized anxiety disorder: Code(s): F41.1 - Generalized anxiety disorder Plan: Currently on duloxetine, nortriptyline and (8) Mixed dyslipidemia: Code(s): E78.2 - Mixed hyperlipidemia Plan: On duloxetine and nortriptyline last fasting lipids done 10/26/2023 showed lipids within normal levels except for very low HDL at 31 mg/dL. Continued on atorvastatin 40 mg daily (9) Diabetes mellitus with neuropathy: Code(s): E11.40 - Type 2 diabetes mellitus with diabetic neuropathy, unspecified Qualifiers: Diabetes mellitus type: type 2 Diabetes mellitus terminal operations supervisor insulin use: without terminal operations supervisor use Qualified Code(s): E11.40 - Type 2 diabetes mellitus with diabetic neuropathy, unspecified Plan: Patient was taken off metformin and Jardiance due to decreased GFR less than 20. Currently on Lantus 24 units at night, and sliding scale mealtime insulin as well as Mounjaro 7.5 mg once a week. Followed by endocrine clinic (10) Fibromyalgia: Code(s): M79.7 - Fibromyalgia Plan: Currently on duloxetine Orders: Orders Complete Blood Count Auto Diff Today D64.9 - Anemia, unspecified, I10 - Essential (primary) hypertension, N18.31 - Chronic kidney disease, stage 3a, R42 - Dizziness and giddiness US carotid duplex BI Today R42 - Dizziness and giddiness Basic Metabolic Panel Today D64.9 - Anemia, unspecified, I10 - Essential (primary) hypertension, N18.31 - Chronic kidney disease, stage 3a, R42 - Dizziness and giddiness IRON PROFILE Today D64.9 - Anemia, unspecified, I10 - Essential (primary) hypertension, N18.31 - Chronic kidney disease, stage 3a, R42 - Dizziness and giddiness Coding Level of Care Code Est Pt Level 4 (85812) Complex EM visit Add On G2211 Diagnoses Intermittent lightheadedness R42 Normocytic normochromic anemia D64.9 Stage 3a chronic kidney disease N18.31 Chronic kidney disease stage 3 subtype: stage 3a (GFR 45-59) COPD (chronic obstructive pulmonary disease) J44.9 Smoker unmotivated to quit F17.200 RODGER (obstructive sleep apnea) G47.33 Generalized anxiety disorder F41.1 Mixed dyslipidemia E78.2 Type 2 diabetes mellitus with diabetic neuropathy, without long-term current use of insulin E11.40 Diabetes mellitus type: type 2 Diabetes mellitus terminal operations supervisor insulin use: without terminal operations supervisor use Fibromyalgia M79.7 Additional Codes DEBORAH-7 Assessment Billing - DEBORAH-7 Assessment Tool: DEBORAH-7 Assessment 56048 ([id number])
[2023-11-05 11:02] VITALS: BP 130/82; PULSE 76; O2SAT 96; BMI 37.0
== END 2023-11-05 12:49 | disposition home or self-care (01) ==
PROVIDERS: PCP Internal Medicine; Visit Provider Internal Medicine
DX: R42 Dizziness and giddiness (principal); N18.31 Chronic kidney disease, stage 3a; J44.9 Chronic obstructive pulmonary disease, unspecified; E11.40 Type 2 diabetes mellitus with diabetic neuropathy, unspecified; F17.200 Nicotine dependence, unspecified, uncomplicated; D64.9 Anemia, unspecified; G47.33 Obstructive sleep apnea (adult) (pediatric); F41.1 Generalized anxiety disorder; E78.2 Mixed hyperlipidemia; M79.7 Fibromyalgia

== ENCOUNTER → 2023-11-05 10:23 | Outpatient (BNVA) | payer OTHER, SELFPAY | PROVIDERS: PCP Internal Medicine; Visit Provider Internal Medicine ==

== ENCOUNTER 2023-11-05 11:36 | Outpatient (REF) | payer OTHER, SELFPAY ==
[2023-11-05 13:17] LABS: MANUAL DIFF FLAG NO
[2023-11-05 13:43] LABS: Basophils Absolute Auto 0.1 X10*3/uL (0.0-0.2); Basophils Percent Auto 0.9 % (0-2); Eosinophils Absolute Auto 0.3 X10*3/uL (0.0-0.4); Eosinophils Percent Auto 3.7 % (0-4); Hematocrit 27.7 % (42.0-52.0); Hemoglobin 8.3 g/dl (14.0-18.0); Imm Gran Abs Auto 0.08 X10*3/uL (0.00-0.03); Imm Gran Pct Auto 0.9 % (0.0-0.4); Lymphocytes Absolute Auto 1.1 X10*3/uL (1.2-4.9); Lymphocytes Percent Auto 12.2 % (20-40); Mean Corpuscular Hemoglobin 27.7 pg (27.0-33.0); Mean Corpuscular Volume 92.3 fL (80.0-98.0); Mean Platelet Volume 10.5 fL (9.4-12.4); Monocytes Absolute Auto 0.7 X10*3/uL (0.1-1.2); Monocytes Percent Auto 7.1 % (2-11); Neutrophils Absolute Auto 6.9 x10*3/uL (2.0-8.3); Neutrophils Percent Auto 75.2 % (45-73); Platelet Count 403 X10*3/uL (160-400); Red Cell Distribution Width 14.3 % (11.0-16.0); White Blood Count 9.2 X10*3/uL (4.8-10.8)
[2023-11-05 14:25] LABS: Anion Gap 12 (12-20); Blood Urea Nitrogen 52 mg/dL (9-16); Calcium 8.9 mg/dL (8.4-10.2); Carbon Dioxide 27 mmol/L (22-29); Chloride 105 mmol/L (96-108); Glucose Random 139 mg/dL (60-115); Iron 38 mcg/dL (45-160); Percent Iron Saturation 19 % (15-50); Potassium 4.9 mmol/L (3.3-5.1); Sodium 139 mmol/L (135-145); Total Iron Binding Capacity 196 mcg/dL (228-428); Unsaturated Iron Binding 158 ug/dL
[2023-11-05 14:27] LABS: Estimated Glomerular Filt Rate 15
== END 2023-11-05 11:37 | disposition home or self-care (01) ==
LOC: HO.HMGCLDS 11:36
PROVIDERS: PCP Internal Medicine; Visit Provider Internal Medicine
DX: R42 Dizziness and giddiness (principal); I12.9 Hypertensive chronic kidney disease with stage 1 through stage 4 chronic kidney disease, or unspecified chronic kidney disease; N18.31 Chronic kidney disease, stage 3a; D63.1 Anemia in chronic kidney disease; J44.9 Chronic obstructive pulmonary disease, unspecified; G47.33 Obstructive sleep apnea (adult) (pediatric); F41.1 Generalized anxiety disorder; E78.2 Mixed hyperlipidemia; E11.40 Type 2 diabetes mellitus with diabetic neuropathy, unspecified; M79.7 Fibromyalgia; F17.210 Nicotine dependence, cigarettes, uncomplicated; Z79.899 Other long term (current) drug therapy
CPT/HCPCS: 36415; 80048; 83540; 85025; 96127; 99212

== ENCOUNTER 2023-11-12 10:23 | Outpatient (AMB) | payer OTHER, SELFPAY ==
--- NOTE | 2023-11-12 10:09 | HO.NEPHOV ---
Vital Signs 11/12/23 10:24 Height 6 ft 2 in BP 106/70 Blood Pressure Location Rt brachial Position Sitting Pulse 71 Pulse Source Pulse Oximeter Pulse Oximetry (%) 96 Oxygen Delivery Method Room Air Intake Visit Reasons: CKD / 4 MO FU/ Conf Director Specialty Required: Yes Director Specialty Name: [id number] Jitendra Accompanied by: Spouse Allergies No Known Allergies Allergy (Verified 11/12/23 11:43) HPI Comments Details: Pt is here for follow up of CKD and proteinuria. Director Specialty utilized. Pt here with daughter. unfortunately pt was dizzy and hypotensive on arrival. he states recent blood sugar was 115. pt felt hot and was unable to complete visit, states he feels very dizzy and tired. he states he took all of his blood pressure medication this a.m. and ate a piece of whole wheat toast this a.m. he states he has been drinking minimal fluids as he believed he was told to minimize fluids when he left the hospital on 10/31 (was admitted with fluid overload and had acute CHF exacerbation). pt is here with his daughter. He is in a wheelchair today. Pt and daughter feel they are able to walk to hospital (pt in wheelchair) across street, and are heading there now. [facility] Medical History (Updated 11/13/23 @ 00:00 by Carmelo Dayousifon) Intermittent lightheadedness History of CVA with residual deficit Left cervical lymphadenopathy Obesity (BMI 30-39.9) Normocytic normochromic anemia COPD (chronic obstructive pulmonary disease) Cigarette smoker Smoker unmotivated to quit RODGER (obstructive sleep apnea) Generalized anxiety disorder 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 Essential hypertension Allergic rhinitis Mixed dyslipidemia Amputation, toe, traumatic Vitamin D deficiency Diabetes mellitus with neuropathy Diabetes mellitus with hyperglycemia, with long-term current use of insulin Osteoarthritis Fibromyalgia Diabetic peripheral angiopathy Spondylosis of cervical spine Diabetic neurogenic arthropathy Surgical History History of foot surgery Family History Father HTN (hypertension) Diabetes Mental health disorder Mother HTN (hypertension) Brother Stroke Social History Household Members: Spouse and Children Housing: Apartment Alcohol intake: never Patient Tobacco Use Status: Current someday Tobacco user Cigarettes Per Day: 3 Years Smoked: 36 e-Cigarette/Vaping Use: Never Used Current occupational status: disabled Cognitive needs: No Hearing needs: No Vision needs: No Review of Systems Const All systems reviewed & are unremarkable except as noted in HPI and below Physical Exam Vital Signs: Last Vital Signs Pulse 71 11/12/23 10:24 BP 106/70 11/12/23 10:24 Pulse Ox 96 11/12/23 10:24 Oxygen Delivery Method Room Air 11/12/23 10:24 Const Other: General: Pt repeatedly stating he is very dizzy and hot, closing his eyes though is alert and conversant. Resp: Clear to auscultation bilaterally. Cardio: Regular rate, regular rhythm; Heart sounds: S1 normal heart sound present and S2 normal heart sound present. No JVD. No peripheral edema. Neuro: Alert, oriented to person, place, time. Results Reviewed Nephrology Results: Hgb 9.2 g/dl (14.0-18.0) L 11/12/23 WBC 9.1 X10*3/uL (4.8-10.8) 11/12/23 Plt Count 424 X10*3/uL (160-400) H 11/12/23 Sodium 139 mmol/L (135-145) 11/12/23 Potassium 5.0 mmol/L (3.3-5.1) 11/12/23 Chloride 106 mmol/L (96-108) 11/12/23 Carbon Dioxide 26 mmol/L (22-29) 11/12/23 BUN 39 mg/dL (9-16) H 11/12/23 Creatinine 4.16 mg/dL (0.5-1.4) H* 11/12/23 Calcium 8.9 mg/dL (8.4-10.2) 11/12/23 Assessment & Plan Assessment & Plan (1) CKD (chronic kidney disease) stage 3, GFR 30-59 ml/min: Code(s): N18.30 - Chronic kidney disease, stage 3 unspecified Category: Medical Qualifiers: Chronic kidney disease stage 3 subtype: stage 3a (GFR 45-59) Qualified Code(s): N18.31 - Chronic kidney disease, stage 3a (2) Proteinuria due to type 2 diabetes mellitus: Code(s): E11.29 - Type 2 diabetes mellitus with other diabetic kidney complication; R80.9 - Proteinuria, unspecified Category: Medical (3) Hypotension: Code(s): I95.9 - Hypotension, unspecified Qualifiers: Hypotension type: hypotension due to drug Qualified Code(s): I95.2 - Hypotension due to drugs Plan: Acute advised ED given symptomatic today, needs fluids. Plan Middle-aged man with obesity hypertension diabetes mellitus with CKD. Nephrotic range proteinuria most likely due to underlying diabetic nephropathy. recent HARRY likely secondary to cardiorenal syndrome ealier this month blood pressure is low today, likely due to dehydration (and may need reduced dose of BP medication) advised ED given symptomatic hypotension, pt and daughter will go to ER at [place] now (pt is in wheelchair) he will follow up in 3 months for CKD management. Coding Level of Care Code Est Pt Level 3 (20574) Diagnoses Stage 3a chronic kidney disease N18.31 Chronic kidney disease stage 3 subtype: stage 3a (GFR 45-59) Proteinuria due to type 2 diabetes mellitus E11.29; R80.9 Hypotension due to drugs I95.2 Hypotension type: hypotension due to drug
[2023-11-12 10:24] VITALS: BP 106/70; PULSE 71; O2SAT 96
== END 2023-11-12 11:07 | disposition home or self-care (01) ==
PROVIDERS: PCP Internal Medicine; Visit Provider Internal Medicine Hypertension Specialist
DX: I12.9 Hypertensive chronic kidney disease with stage 1 through stage 4 chronic kidney disease, or unspecified chronic kidney disease (principal); E11.22 Type 2 diabetes mellitus with diabetic chronic kidney disease; N18.31 Chronic kidney disease, stage 3a; R80.9 Proteinuria, unspecified; I95.2 Hypotension due to drugs
CPT/HCPCS: 99215

== ENCOUNTER → 2023-11-12 10:23 | Outpatient (BNVA) | payer OTHER, SELFPAY | PROVIDERS: PCP Internal Medicine; Visit Provider Internal Medicine Hypertension Specialist | DX: E11.22 Type 2 diabetes mellitus with diabetic chronic kidney disease (principal); E11.29 Type 2 diabetes mellitus with other diabetic kidney complication; R80.9 Proteinuria, unspecified; N18.31 Chronic kidney disease, stage 3a; I95.2 Hypotension due to drugs; Z79.899 Other long term (current) drug therapy | CPT/HCPCS: 99212 ==

== ENCOUNTER 2023-11-12 11:07 | Emergency (ER) | payer OTHER, SELFPAY ==
[2023-11-12 11:33] VITALS: BP 109/69; PULSE 69; RESP 16; TEMP 36.4; O2SAT 95; BMI 34.3
--- NOTE | 2023-11-12 11:44 | ED.GENADULT ---
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 Patient states this morning he took all of his medications with black coffee, only a few bites of food. He states his girlfriend has been limiting his salt intake and giving him small portions which she has not used to. He went to go see his kidney doctor today and was found to be mildly hypotensive with blood pressure 95/60. He was dizzy. This started around 30. He states his blood pressure when he took his blood pressure medications was 137/97. He is unsure of all the medications that he is on. He states he was recently admitted at [facility] October 24 through the for significant volume overload and had 50 lb of fluid diuresed off of him. Medication adjustments were made and he was discharged with a blood pressure cuff to keep close eye on his blood pressure. He has visiting nurse come to his home. He follows up with a credit collections rep, chemist steroids and primary care all at [facility]. He denies history of hypotension in the past. No fevers or chills. No numbness, tingling, weakness. He has significant dietary modifications with decreased p.o. intake and significant salt decrease after his recent admission at [facility] complaint: Dizziness, soft BP Onset (ago): hour(s) Radiation: non-radiation Severity: moderate Pain Consistency: intermittent Relieving factors: rest Exacerbating factors: movement Associated symptoms: denies other symptoms Treatments prior to arrival: none Related Data Home Medications ?Medication ?Instructions ?Recorded ?Confirmed ketoconazole 2 % topical cream 1 appl topical BID 02/27/20 10/01/23 nortriptyline 50 mg capsule 50 mg PO BEDTIME 07/13/20 10/01/23 prazosin 1 mg capsule 1 mg PO BEDTIME 10/02/20 10/01/23 tamsulosin 0.4 mg capsule 0.4 mg PO DAILY 02/28/22 10/01/23 duloxetine 30 mg capsule,delayed 60 mg PO DAILY pain 05/01/22 10/01/23 release amlodipine 10 mg tablet 10 mg PO DAILY 11/05/23 carvedilol 25 mg tablet 25 mg PO BID 11/05/23 furosemide 20 mg tablet mg PO TID 11/05/23 hydralazine 10 mg tablet 10 mg PO TID 11/05/23 insulin aspart U-100 100 unit/mL See Rx Instructions subcut TID 11/05/23 (3 mL) subcutaneous pen (Novolog FlexPen U-100 Insulin aspart) insulin glargine 100 unit/mL (3 24 unit subcut QPM 11/05/23 mL) subcutaneous pen (Lantus Solostar U-100 Insulin) isosorbide mononitrate 30 mg 30 mg PO DAILY 11/05/23 tablet,extended release 24 hr Previous Rx's ?Medication ?Instructions ?Recorded wheelchair #1 ea 07/09/20 fluticasone propionate 50 1 spray intranasal DAILY #16 grams 07/13/20 mcg/actuation nasal spray,suspension insulin syringe-needle U-100 1 mL #100 ea 04/23/21 31 gauge x 5/16 (Comfort EZ Insulin Syringe) bed rail #1 ea 03/10/22 overbed table with wheels #1 ea 03/10/22 shower bar #2 ea 03/10/22 wheelchair ramp #1 ea 03/10/22 pen needle, diabetic 31 gauge x #100 ea 01/12/23 5/16 (Comfort EZ Pen [place]) atorvastatin 40 mg tablet 40 mg PO QPM #90 tabs 05/29/23 FreeStyle Lancets 28 gauge #300 ea 06/06/23 (lancets) blood-glucose transmitter (Dexcom #1 ea 06/08/23 G6 Transmitter device) Hand rails #3 ea 06/29/23 Shower seat #1 ea 06/29/23 gabapentin 300 mg capsule 300 mg PO Q8H 30 days #90 caps 07/01/23 Grab bar #2 ea 07/03/23 tirzepatide 7.5 mg/0.5 mL 7.5 mg (0.5 mL) subcut QWEEK #2 mL 08/03/23 subcutaneous pen injector (Maricruz) ipratropium 0.5 mg-albuterol 3 mg 3 ml inhalation QID PRN for 08/10/23 (2.5 mg base)/3 mL nebulization wheezing #180 mL soln omega-3 acid ethyl esters 1 gram 2 cap PO BID #360 caps 08/25/23 capsule (Lovaza) aspirin 81 mg tablet,delayed 81 mg PO DAILY #90 tabs 09/28/23 release nicotine 14 mg/24 hr daily 1 patch transdermal DAILY QUIT 10/06/23 transdermal patch SMOKING 28 days #28 ea Dexcom G6 Sensor (blood-glucose #9 ea 10/07/23 sensor) Symbicort 160 mcg-4.5 2 puff PO Q12H #10.2 grams 10/26/23 mcg/actuation HFA aerosol inhaler (budesonide-formoterol) ipratropium 0.5 mg-albuterol 3 mg 3 ml inhalation Q6-8H PRN SEVERE 11/03/23 (2.5 mg base)/3 mL nebulization copd wheezing 30 days #360 mL soln wheelchair #1 ea 11/03/23 Allergies Allergy/AdvReac Type Severity Reaction Status Date / Time No Known Allergies Allergy Verified 11/12/23 11:43 Review of Systems Review of Systems: Yes all other systems are reviewed and are negative [facility] Past Medical History Medical History (Updated 11/13/23 @ 00:00 by Carmelo Kapoor) Intermittent lightheadedness History of CVA with residual deficit Left cervical lymphadenopathy Obesity (BMI 30-39.9) Normocytic normochromic anemia COPD (chronic obstructive pulmonary disease) Cigarette smoker Smoker unmotivated to quit RODGER (obstructive sleep apnea) Generalized anxiety disorder 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 Essential hypertension Allergic rhinitis Mixed dyslipidemia Amputation, toe, traumatic Vitamin D deficiency Diabetes mellitus with neuropathy Diabetes mellitus with hyperglycemia, with long-term current use of insulin Osteoarthritis Fibromyalgia Diabetic peripheral angiopathy Spondylosis of cervical spine Diabetic neurogenic arthropathy Surgical History History of foot surgery Family History Family History Father HTN (hypertension) Diabetes Mental health disorder Mother HTN (hypertension) Brother Stroke Social History Social History Household Members: Spouse and Children Housing: Apartment Alcohol intake: never Patient Tobacco Use Status: Current someday Tobacco user Cigarettes Per Day: 3 Years Smoked: 36 e-Cigarette/Vaping Use: Never Used Advance Directives: No Advance Directives Information Provided: No Current occupational status: disabled Cognitive needs: No Hearing needs: No Vision needs: No Physical Exam ED Vital Signs: Vital Signs - 24 hr 11/12/23 11:33 11/12/23 15:47 11/12/23 16:59 Temperature 97.5 F 97.4 F Pulse Rate 69 69 70 Respiratory Rate 16 14 Blood Pressure 109/69 143/70 H 154/74 H Pulse Oximetry 95 96 Oxygen Delivery Method Room Air Room Air 11/12/23 17:02 11/12/23 17:16 Temperature 98.2 F Pulse Rate 69 70 Respiratory Rate 18 Blood Pressure 148/77 H 154/74 H Pulse Oximetry 97 Oxygen Delivery Method Room Air BMI result Body Mass Index 34.3 Appearance: Alert. Oriented X3. No acute distress. Head: normocephalic, atraumatic. Eyes: Pupils equal, round and reactive to light. ENT: Pharynx normal. No tonsillar swelling or exudate. Neck: Normal inspection. Neck supple. CVS: Normal heart rate and rhythm. Pulses normal. Respiratory: No respiratory distress. Breath sounds normal. Abdomen: Obese, Soft and nontender. +BS x4 Skin: Skin warm and dry. Normal skin color. Normal skin turgor. No rashes. Extremities: No lower extremity edema. Hyperpigmented rash on the lower legs bilaterally. Neuro/psych: Oriented X 3. No motor deficit. No sensory deficit. CN II-XII intact. Normal speech and cognition. Steady gait. Course Course Course Narrative: RME: done by SUSANA Solano. 53-year-old male history of diabetes, chronic kidney disease stage 3, and heart problems presents to the ED for dizziness described as lightheadedness and hypotensive. Patient was at the renal doctor this morning and blood pressure was 95/60. Patient admits to not eating much today and took all his medications. Patient denies any neuro stroke symptoms. Patient has history of of anemia but denies any rectal bleeding or vomiting blood. EkG labs ordered. Medical Decision Making Medical Decision Making MDM Narrative: 53-year-old male with multiple medical problems including hypertension on multiple hypertensive medications. He had recent admission where medications were adjusted. He was sent home with a blood pressure cuff, visiting nurse, his girlfriend helps take his blood pressure at home. No episodes of hypotension since discharge 10 days ago. Blood pressure soft today at Nephrology office 95/60. This could be due to dietary modifications, as he has had significant decrease in his salt intake and portion sizes. On arrival to the ER his blood pressure is normalized, repeat blood pressure is on the higher side. He is no longer dizzy any feeling much better. He is hungry. Lab workup showing stable anemia, thrombocytosis, CKD at baseline. Trop was nonischemic. EKG is nonischemic. He is feeling better would like to go home. At this time he is stable for discharge home with continued close monitoring his blood pressure. Advised to not take all his blood pressure medications at once and to monitor his BP closely. He will follow up with his primary care doctor, credit collections rep and chemist steroids. Differential Diagnosis Differential Diagnoses: The differential diagnosis associated with the presentation includes Orthostatic hypotension, over medication, transient hypotension, dehydration, low suspicion for infection or sepsis Admission/Observation Consideration of admission/observation: Escalation of care including admission/observation considered Lab Data MDM Lab Attestation statement: I reviewed the patient's lab results. Stable anemia, CKD at baseline 11/12/23 12:06 11/12/23 12:06 Labs: Lab Results 11/12/23 Range/Units 12:06 WBC 9.1 (4.8-10.8) X10*3/uL RBC 3.33 L (4.60-5.80) X10*6/uL Hgb 9.2 L (14.0-18.0) g/dl Hct 30.5 L (42.0-52.0) % MCV 91.6 (80.0-98.0) fL MCH 27.6 (27.0-33.0) pg MCHC 30.2 L (31.0-36.0) g/dl RDW 13.9 (11.0-16.0) % Plt Count 424 H (160-400) X10*3/uL MPV 9.9 (9.4-12.4) fL Immature Gran % (Auto) 0.3 (0.0-0.4) % Neut % (Auto) 74.6 H (45-73) % Lymph % (Auto) 14.1 L (20-40) % [place] % (Auto) 7.0 (2-11) % Eos % (Auto) 3.3 (0-4) % Baso % (Auto) 0.7 (0-2) % Lymph # (Auto) 1.3 (1.2-4.9) X10*3/uL [place] # (Auto) 0.6 (0.1-1.2) X10*3/uL Eos # (Auto) 0.3 (0.0-0.4) X10*3/uL Baso # (Auto) 0.1 (0.0-0.2) X10*3/uL Abs Immat Gran (auto) 0.03 (0.00-0.03) X10*3/uL Absolute Neuts (auto) 6.8 (2.0-8.3) x10*3/uL Absolute Nucleated RBC 0.000 (0.0-0.012) X10*3/uL Nucleated RBC % (auto) 0.0 (0.0-0.2) /100WBC PT 11.7 (10.9-12.4) SEC INR 1.0 (0.9-1.1) APTT 40.4 H (26.0-36.8) SEC Sodium 139 (135-145) mmol/L Potassium 5.0 (3.3-5.1) mmol/L Chloride 106 (96-108) mmol/L Carbon Dioxide 26 (22-29) mmol/L Anion Gap 12 (12-20) BUN 39 H (9-16) mg/dL Creatinine 4.16 H* (0.5-1.4) mg/dL Estim Creat Clear Calc 27.7 Estimated GFR 15 Random Glucose 142 H (60-115) mg/dL Lactic Acid 1.2 (0.5-2.0) mmol/L Calcium 8.9 (8.4-10.2) mg/dL Total Bilirubin 0.3 (0.0-1.0) mg/dL AST 12 (5-37) U/L ALT 9 (0-40) U/L Alkaline Phosphatase 68 (39-117) U/L Troponin I High Sens 16.6 (<3.5-35.0) ng/L Total Protein 7.2 (6.5-8.0) g/dL Albumin 3.2 L (3.5-5.0) g/dL Influenza Type A (PCR) NEGATIVE (Negative) Influenza Type B (PCR) NEGATIVE (Negative) RSV RNA Qual (PCR) NEGATIVE (Negative) SARS-CoV-2 RNA (RT-PCR) NEGATIVE (Negative) Blood Type O Positive Antibody Screen NEGATIVE Independent Interpretation I performed an independent interpretation of an: EKG Interpretation: EKG with normal sinus rhythm, ventricular rate 67 beats per minute, no ST segment elevations or depressions. Independent Historian Clinical information obtained from an independent historian. History obtained from or confirmed by: Spouse External Record Review External record reviewed: Prior outpatient labs Prescription Management I considered prescription management with: Other (Antihypertensive, anxiolytic, IV fluids) Chronic Conditions Patient?s care impacted by: Diabetes, Hypertension and Other (CKD) Critical Care Time Critical Care Time Critical Care Time: No Discharge Plan Discharge Clinical Impression: Essential hypertension, CKD (chronic kidney disease) Patient Disposition: Home, Self-Care Instructions: Chronic Kidney Disease Diet (DC), Chronic Hypertension (DC) Additional Instructions: Your blood pressures today were improved. Your lab work was stable. Recommend monitoring her blood pressure at home 2-3 times per day. If your blood pressure in the morning is less than 120/80, do not take all of your blood pressure medications. Take 1 medication and recheck her blood pressure in 2 hours. If her blood pressure is rising, you can continue to take your previously prescribed blood pressure medications. Follow-up with your doctor for additional adjustments to your medications as needed. If you develop new or worsening symptoms call 911 or come back to the ER for further evaluation. Prescriptions: No Action (DME) insulin syringe-needle U-100 [Comfort EZ Insulin Syringe] 1 mL 31 gauge x 5/16 syringe See Rx Instructions .ROUTE .COMPLEX Qty: 100 4RF Dose Instruction: USE WITH insulin two (2) times a day Rx Instructions: USE WITH insulin two (2) times a day (DME) overbed table with wheels See Rx Instructions .Route .MEDSUPPLY Qty: 1 0RF Rx Instructions: As directed (DME) shower bar See Rx Instructions .Route .MEDSUPPLY Qty: 2 0RF Rx Instructions: As directed (DME) bed rail See Rx Instructions .Route .MEDSUPPLY Qty: 1 0RF Rx Instructions: As directed (DME) wheelchair ramp See Rx Instructions .Route .MEDSUPPLY Qty: 1 0RF Rx Instructions: Pt is wheelchair bound, needs a ramp to exit the front door and 6 steps to get to the sidewalk (DME) pen needle, diabetic [Comfort EZ Pen [place]] 31 gauge x 5/16 needle See Rx Instructions .ROUTE .COMPLEX Qty: 100 5RF Dose Instruction: USE DIRECTED 3 (THREE) TIMES A DAY Rx Instructions: USE DIRECTED 3 (THREE) TIMES A DAY atorvastatin 40 mg tablet 40 mg PO QPM Qty: 90 1RF (DME) lancets [FreeStyle Lancets] 28 gauge misc See Rx Instructions .ROUTE .COMPLEX Qty: 300 1RF Dose Instruction: USE TO TEST FINGER STICK BLOOD SUGAR 3 (THREE) TIMES A DAY Rx Instructions: USE TO TEST FINGER STICK BLOOD SUGAR 3 (THREE) TIMES A DAY (DME) Dexcom G6 Transmitter Device See Rx Instructions .Route Qty: 1 0RF Rx Instructions: As directed gabapentin 300 mg capsule 300 mg PO Q8H 30 Days Qty: 90 3RF (DME) Grab bar Misc See Rx Instructions .Route Qty: 2 0RF Rx Instructions: one long bar 33-36 inches for inside the shower, one regular bar 18-24 inches for outside the shower Mounjaro 7.5 mg/0.5 mL pen injector 7.5 mg subcut QWEEK Qty: 2 5RF ipratropium-albuterol 0.5 mg-3 mg(2.5 mg base)/3 mL solution for nebulization 3 ml inhalation QID PRN (Reason: for wheezing) Qty: 180 3RF omega-3 acid ethyl esters [Lovaza] 1 gram capsule 2 cap PO BID Qty: 360 1RF aspirin 81 mg tablet,delayed release (DR/EC) 81 mg PO DAILY Qty: 90 1RF nicotine 14 mg/24 hr patch 24 hour 1 patch transdermal DAILY 28 Days Qty: 28 2RF budesonide-formoterol [Symbicort] 160-4.5 mcg/actuation HFA aerosol inhaler 2 puff PO Q12H Qty: 10.2 5RF (DME) wheelchair See Rx Instructions .Route .MEDSUPPLY Qty: 1 0RF Rx Instructions: As directed (DME) wheelchair See Rx Instructions .Route .MEDSUPPLY Qty: 1 0RF Rx Instructions: As directed prazosin 1 mg capsule 1 mg PO BEDTIME nortriptyline 50 mg capsule 50 mg PO BEDTIME fluticasone propionate 50 mcg/actuation spray,suspension 1 spray intranasal DAILY Qty: 16 5RF Rx Instructions: administer into each nostril (DME) Hand rails See Rx Instructions .Route .MEDSUPPLY Qty: 3 0RF Rx Instructions: As directed (DME) Shower seat See Rx Instructions .Route .MEDSUPPLY Qty: 1 0RF Rx Instructions: As directed tamsulosin 0.4 mg capsule 0.4 mg PO DAILY ketoconazole 2 % cream 1 appl topical BID duloxetine 30 mg capsule,delayed release(DR/EC) 60 mg PO DAILY amlodipine 10 mg tablet 10 mg PO DAILY furosemide 20 mg tablet PO TID isosorbide mononitrate 30 mg tablet extended release 24 hr 30 mg PO DAILY carvedilol 25 mg tablet 25 mg PO BID hydralazine 10 mg tablet 10 mg PO TID insulin glargine [Lantus Solostar U-100 Insulin] 100 unit/mL (3 mL) insulin pen 24 unit subcut QPM insulin aspart U-100 [Novolog FlexPen U-100 Insulin] 100 unit/mL (3 mL) insulin pen See Rx Instructions subcut TID Rx Instructions: Take 6-8 units subcutaneous breakfast, 6-8 units with lunch and dinner subcutaneously 3 times a day; (DME) Dexcom G6 Sensor Device See Rx Instructions .Route Qty: 9 3RF Rx Instructions: As directed change every 10 days LEE ipratropium-albuterol 0.5 mg-3 mg(2.5 mg base)/3 mL solution for nebulization 3 ml inhalation Q6-8H PRN (Reason: SEVERE copd wheezing) 30 Days Qty: 360 2RF Discharge Date/Time: 11/12/23 17:20 Print Language: Irish
--- NOTE | 2023-11-12 11:46 | ECG_ITS ---
Test Reason : DIZZINESS Blood Pressure : / mmHG Vent. Rate : 067 BPM Atrial Rate : 067 BPM P-R Int : 174 ms QRS Dur : 094 ms QT Int : 408 ms P-R-T Axes : 037 -06 107 degrees QTc Int : 431 ms Normal sinus rhythm Abnormal QRS-T angle, consider primary T wave abnormality Abnormal ECG No previous ECGs available Referred By: Tom Solano Electronically Signed By:BERTA FINE
[2023-11-12 12:14] LABS: MANUAL DIFF FLAG NO
[2023-11-12 12:16] LABS: Basophils Absolute Auto 0.1 X10*3/uL (0.0-0.2); Basophils Percent Auto 0.7 % (0-2); Eosinophils Absolute Auto 0.3 X10*3/uL (0.0-0.4); Eosinophils Percent Auto 3.3 % (0-4); Hematocrit 30.5 % (42.0-52.0); Hemoglobin 9.2 g/dl (14.0-18.0); Imm Gran Abs Auto 0.03 X10*3/uL (0.00-0.03); Imm Gran Pct Auto 0.3 % (0.0-0.4); Lymphocytes Absolute Auto 1.3 X10*3/uL (1.2-4.9); Lymphocytes Percent Auto 14.1 % (20-40); Mean Corpuscular HGB Conc 30.2 g/dl (31.0-36.0); Mean Corpuscular Hemoglobin 27.6 pg (27.0-33.0); Mean Corpuscular Volume 91.6 fL (80.0-98.0); Mean Platelet Volume 9.9 fL (9.4-12.4); Monocytes Absolute Auto 0.6 X10*3/uL (0.1-1.2); Neutrophils Absolute Auto 6.8 x10*3/uL (2.0-8.3); Neutrophils Percent Auto 74.6 % (45-73); Platelet Count 424 X10*3/uL (160-400); Red Blood Count 3.33 X10*6/uL (4.60-5.80); Red Cell Distribution Width 13.9 % (11.0-16.0); White Blood Count 9.1 X10*3/uL (4.8-10.8)
[2023-11-12 12:21] LABS: Prothrombin Time 11.7 SEC (10.9-12.4)
[2023-11-12 12:23] LABS: Partial Thromboplastin Time 40.4 SEC (26.0-36.8)
[2023-11-12 12:29] LABS: Lactic Acid 1.2 mmol/L (0.5-2.0)
[2023-11-12 12:43] LABS: Alanine Aminotransferase 9 U/L (0-40); Albumin Level 3.2 g/dL (3.5-5.0); Alkaline Phosphatase 68 U/L (39-117); Anion Gap 12 (12-20); Aspartate Amino Transferase 12 U/L (5-37); Bilirubin Total 0.3 mg/dL (0.0-1.0); Blood Urea Nitrogen 39 mg/dL (9-16); Calcium 8.9 mg/dL (8.4-10.2); Carbon Dioxide 26 mmol/L (22-29); Chloride 106 mmol/L (96-108); Creatinine Clr Calc Pharmacy 27.7; Estimated Glomerular Filt Rate 15; Glucose Random 142 mg/dL (60-115); Sodium 139 mmol/L (135-145); Total Protein 7.2 g/dL (6.5-8.0); Troponin-I High Sensitivity 16.6 ng/L (<3.5-35.0)
[2023-11-12 12:52] LABS: Influenza A PCR NEGATIVE (Negative); Influenza B PCR NEGATIVE (Negative); Resp Syncy Virus RNA Qual PCR NEGATIVE (Negative); SARS COV2 PCR INHOUSE NEGATIVE (Negative)
[2023-11-12 15:47] VITALS: BP 143/70; PULSE 69; RESP 14; TEMP 36.3; O2SAT 96
[2023-11-12 16:59] VITALS: BP 154/74; PULSE 70
[2023-11-12 17:02] VITALS: BP 148/77; PULSE 69
[2023-11-12 17:16] VITALS: BP 154/74; PULSE 70; RESP 18; TEMP 36.8; O2SAT 97
== END 2023-11-12 17:20 | disposition home or self-care (01) ==
PROVIDERS: Physician Assistant; Emergency Provider Internal Medicine
DX: I12.9 Hypertensive chronic kidney disease with stage 1 through stage 4 chronic kidney disease, or unspecified chronic kidney disease (principal); E11.22 Type 2 diabetes mellitus with diabetic chronic kidney disease; N18.9 Chronic kidney disease, unspecified; M79.7 Fibromyalgia; R42 Dizziness and giddiness; R94.31 Abnormal electrocardiogram [ECG] [EKG]; F17.210 Nicotine dependence, cigarettes, uncomplicated; Z86.73 Personal history of transient ischemic attack (TIA), and cerebral infarction without residual deficits; Z79.899 Other long term (current) drug therapy; Z79.4 Long term (current) use of insulin; Z51.81 Encounter for therapeutic drug level monitoring; Z03.818 Encounter for observation for suspected exposure to other biological agents ruled out
CPT/HCPCS: 0241U; 80053; 83605; 84484; 85025; 85610; 85730; 86850; 86900; 86901; 87040; 93005; 99284

== ENCOUNTER 2023-12-08 10:50 | Outpatient (AMB) | payer OTHER, SELFPAY ==
--- NOTE | 2023-12-08 11:18 | A.OFFVIS_ITS ---
VS Expanded 12/08/23 13:04 Height 6 ft 2 in Weight 268 lb BMI 34.4 Intake Visit Reasons: T2DM Allergies No Known Allergies Allergy (Verified 12/01/23 00:56) Nutrition Presentation Details: Pt presents for MNT f/u for T2DM Pt reports recent hospitalization related to CKD stage 3. Pt presents with daughter during this appt. Pt reports being careful with sodium intake in the past , and needs review on low sodium concepts Per 14 d bg record bg averaging at 193 +/- 51 , 47 % within target, no low BG, 40 % above 180 mg/dl, 13% above 250 mg/dl Pt reports having 2 -3 meals/d, but no meal routine, snacks on chips/crackers , juice /candies BS Monitoring Most Recent Diabetes Results: Creatinine 4.16 mg/dL (0.5-1.4) H* 11/12/23 Blood Urea Nitrogen 39 mg/dL (9-16) H 11/12/23 Sodium 139 mmol/L (135-145) 11/12/23 Potassium 5.0 mmol/L (3.3-5.1) 11/12/23 Chloride 106 mmol/L (96-108) 11/12/23 Carbon Dioxide 26 mmol/L (22-29) 11/12/23 Calcium 8.9 mg/dL (8.4-10.2) 11/12/23 AST 12 U/L (5-37) 11/12/23 ALT 9 U/L (0-40) 11/12/23 Total Protein 7.2 g/dL (6.5-8.0) 11/12/23 Albumin 3.2 g/dL (3.5-5.0) L 11/12/23 [facility] Medical History Intermittent lightheadedness History of CVA with residual deficit Left cervical lymphadenopathy Obesity (BMI 30-39.9) Normocytic normochromic anemia COPD (chronic obstructive pulmonary disease) Cigarette smoker Smoker unmotivated to quit RODGER (obstructive sleep apnea) Generalized anxiety disorder 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 Essential hypertension Allergic rhinitis Mixed dyslipidemia Amputation, toe, traumatic Vitamin D deficiency Diabetes mellitus with neuropathy Diabetes mellitus with hyperglycemia, with long-term current use of insulin Osteoarthritis Fibromyalgia Diabetic peripheral angiopathy Spondylosis of cervical spine Diabetic neurogenic arthropathy Surgical History History of foot surgery Family History Father HTN (hypertension) Diabetes Mental health disorder Mother HTN (hypertension) Brother Stroke Social History Household Members: Spouse and Children Housing: Apartment Alcohol intake: never Patient Tobacco Use Status: Current someday Tobacco user Cigarettes Per Day: 3 Years Smoked: 36 e-Cigarette/Vaping Use: Never Used Current occupational status: disabled Cognitive needs: No Hearing needs: No Vision needs: No Assessment & Plan Assessment & Plan (1) Diabetes mellitus with hyperglycemia, with long-term current use of insulin: Code(s): E11.65 - Type 2 diabetes mellitus with hyperglycemia; Z79.4 - manager long term care (current) use of insulin Category: Medical Qualifiers: Diabetes mellitus type: type 2 Qualified Code(s): E11.65 - Type 2 diabetes mellitus with hyperglycemia; Z79.4 - longterm (current) use of insulin Plan: USED WEIGHT: 122 kg Est kcal needs as per MSJ: 2669-500 for sedentary lifestyle = 2169 est protein needs as per 1 g/kg current bw:122 g/d est fluid needs as per 25 ml/kg bw: 3000 ml/d Rec fiber intake : 30-38 g as tolerated Rec Na intake : < 1500 mg/d Review meal planning for glucose control and low sodium food concepts Patient Instructions: Have 3 meals/day working on having small meals following healthy plate method, distributed throughout the day instead of of 1-2 large meals. Resume choosing low sodium cooking options: do not add table salt to the foods , use vinegar/lemon, spices for flavor and reduce on salt , choose low sodium seasonings by reading food labels Choose low sodium snacks ex : unsalted crackers with peanut butter /avocado or fruit or carrots , reducing on chips/pastries Coding Level of Care Code Nutr Indiv Subseq ([id number]) Diagnoses Type 2 diabetes mellitus with hyperglycemia, with long-term current use of insulin E11.65; Z79.4 Diabetes mellitus type: type 2 Time Spent (min) 30
[2023-12-08 13:04] VITALS: BMI 34.4
== END 2023-12-08 11:44 | disposition home or self-care (01) ==
PROVIDERS: PCP Internal Medicine; Visit Provider Dietitian, Registered
DX: E11.65 Type 2 diabetes mellitus with hyperglycemia (principal); Z79.4 Long term (current) use of insulin

== ENCOUNTER → 2023-12-08 10:50 | Outpatient (BNVA) | payer OTHER, SELFPAY | PROVIDERS: PCP Internal Medicine; Visit Provider Dietitian, Registered | DX: E11.22 Type 2 diabetes mellitus with diabetic chronic kidney disease (principal); E11.65 Type 2 diabetes mellitus with hyperglycemia; N18.30 Chronic kidney disease, stage 3 unspecified; Z71.3 Dietary counseling and surveillance; Z79.4 Long term (current) use of insulin | CPT/HCPCS: 97803 ==

== ENCOUNTER 2023-12-22 11:00 | Outpatient (AMB) | payer OTHER, SELFPAY ==
[2023-12-22 11:04] VITALS: BP 150/74; PULSE 88; O2SAT 98; BMI 34.0
--- NOTE | 2023-12-22 11:04 | A.OFFVIS_ITS ---
Vital Signs 12/22/23 11:04 12/22/23 11:57 Height 6 ft 2 in Weight 264 lb 8.875 oz BMI 34.0 34.0 BP 150/74 H Blood Pressure Location Rt brachial Position Sitting Pulse 88 Pulse Source Pulse Oximeter Pulse Oximetry (%) 98 Oxygen Delivery Method Room Air Intake Visit Reasons: Obstructive sleep apnea Accompanied by: Daughter Allergies No Known Allergies Allergy (Verified 12/22/23 11:20) Medication List - Last Reconciled 12/22/23 by Edmundo Hammond MD amlodipine 10 mg PO DAILY aspirin 81 mg PO DAILY atorvastatin 40 mg PO QPM [bed rail As directed] carvedilol 25 mg PO BID Dexcom G6 Sensor (blood-glucose sensor) As directed change every 10 days LEE NS Dexcom G6 Transmitter (blood-glucose transmitter) As directed NS duloxetine 60 mg PO DAILY fluticasone propionate 50 mcg/actuation 1 spray intranasal DAILY FreeStyle Lancets (lancets) USE TO TEST FINGER STICK BLOOD SUGAR 3 (THREE) TIMES A DAY NS furosemide mg PO TID gabapentin 300 mg PO Q8H 30 days Grab bar one long bar 33-36 inches for inside the shower, one regular bar 18-24 inches for outside the shower [Hand rails As directed] hydralazine 10 mg PO TID insulin aspart U-100 (Novolog FlexPen U-100 Insulin aspart) 30 units (0.3 mL) subcut TID insulin glargine (Lantus Solostar U-100 Insulin) 24 units subcut QPM insulin syringe-needle U-100 (Comfort EZ Insulin Syringe) USE WITH insulin two (2) times a day ipratropium-albuterol 0.5 mg-3 mg(2.5 mg base)/3 mL 3 mL inhalation Q6-8H PRN 30 days ipratropium-albuterol 0.5 mg-3 mg(2.5 mg base)/3 mL 3 mL inhalation QID PRN isosorbide mononitrate ER 30 mg PO DAILY loratadine 10 mg PO DAILY nicotine 1 patch transdermal DAILY 28 days nortriptyline 50 mg PO BEDTIME omega-3 acid ethyl esters (Lovaza) 2 caps PO BID [overbed table with wheels As directed] pen needle, diabetic (Comfort EZ Pen [place]) USE DIRECTED 3 (THREE) TIMES A DAY prazosin 1 mg PO BEDTIME [shower bar As directed] [Shower seat As directed] Symbicort 160-4.5 mcg/actuation (budesonide-formoterol) 2 puffs PO Q12H NS tirzepatide (Mounjaro) 7.5 mg (0.5 mL) subcut QWEEK [wheelchair As directed] [wheelchair As directed] [wheelchair ramp Pt is wheelchair bound, needs a ramp to exit the front door and 6 steps to get to the sidewalk] Do you need a note to return to daycare/school/sports/work: No HPI HPI Obstructive sleep apnea: Details: This 53 years old gentleman, a case of chronic obstructive pulmonary disease, and symptoms of obstructive sleep apnea, is here for follow-up after 6 weeks. He was expecting to have had polysomnogram study in the sleep lab, but it has not happened yet. He sleeps okay but wakes frequently, and feels somewhat tired during the daytime. Chronic obstructive pulmonary disease status is fairly stable with his current regimen including Symbicort and ipratropium-albuterol updrafts. He has not required. Oxygen therapy He claims to be feeling better overall, less short of breath and has only minimal cough or wheezing. He has had Stroke, has peripheral neuropathy with impaired gait and is mostly in the wheelchair. Multiple comorbidities including hypertension hyperlipidemia, insulin-dependent diabetes mellitus, allergic rhinitis and COPD. [facility] Medical History Intermittent lightheadedness History of CVA with residual deficit Left cervical lymphadenopathy Obesity (BMI 30-39.9) Normocytic normochromic anemia COPD (chronic obstructive pulmonary disease) Cigarette smoker Smoker unmotivated to quit RODGER (obstructive sleep apnea) Generalized anxiety disorder 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 Essential hypertension Allergic rhinitis Mixed dyslipidemia Amputation, toe, traumatic Vitamin D deficiency Diabetes mellitus with neuropathy Diabetes mellitus with hyperglycemia, with long-term current use of insulin Osteoarthritis Fibromyalgia Diabetic peripheral angiopathy Spondylosis of cervical spine Diabetic neurogenic arthropathy Surgical History History of foot surgery Family History Father HTN (hypertension) Diabetes Mental health disorder Mother HTN (hypertension) Brother Stroke Social History Household Members: Spouse and Children Housing: Apartment Alcohol intake: never Patient Tobacco Use Status: Current someday Tobacco user Cigarettes Per Day: 3 Years Smoked: 36 e-Cigarette/Vaping Use: Never Used Current occupational status: disabled Cognitive needs: No Hearing needs: No Vision needs: No Review of Systems Const All systems reviewed & are unremarkable except as noted in HPI and below Eyes Reports no additional complaints ENT Reports no additional complaints Card Denies chest pain at rest, Denies irregular heart rhythm and Denies leg edema Resp Reports as per HPI GI Reports no additional complaints Reports no additional complaints Musc Reports abnormal gait (He has weakness of both lower extremities and is non ambulatory, uses wheel), Reports back pain and Reports muscle weakness Skin/Breast Reports system reviewed and no additional complaints, except as documented Neuro Reports abnormal gait (He has weakness of both lower extremities and is non ambulatory, uses wheel) Psych Reports no additional complaints Endo Reports other (Being treated for diabetes mellitus) Aller/Immun Reports no additional complaints Physical Exam Vital Signs: Last Vital Signs Pulse 88 12/22/23 11:04 BP 150/74 H 12/22/23 11:04 Pulse Ox 98 12/22/23 11:04 Oxygen Delivery Method Room Air 12/22/23 11:04 BMI result Body Mass Index 34.0 The patient does appear to be moderately obese with a round face. He is sitting in the wheelchair but able to stand and walk, he appears to be comfortable. Const General: comfortable, no acute distress, alert and awake Orientation/consciousness: patient oriented x3 HEENT Head: Yes normal to inspection General nose exam: No nasal polyps present and No nasal discharge present Face and sinus: Yes sinuses nontender Mouth: oropharynx abnormals (Oropharynx is narrow and crowded, Mallampati class 4) Throat: Yes posterior oropharynx normal Eyes General: appearance normal, both eyes and all related structures Neck Neck: Yes normal visual inspection, Yes no lymphadenopathy, Yes trachea midline and Yes other (Neck circumference 18 in) Thyroid: Thyroid normal Chest Chest palpation & inspection: normal inspection of the chest, normal palpation of entire chest wall and no tenderness Resp Other: Percussion note is resonant, breath sounds are quite distant especially over the basilar areas. He does not have any he crepitations or wheezes at this time . Cardio Palpation: normal PMI Rate: regular rate Rhythm: regular rhythm Heart sounds: no gallops and no murmurs GI Palpation (GI): Soft to palpation, nontender, No hepatosplenomegaly present and no masses Auscultation: normal bowel sounds Back/Spine/Pelvis Thoracic/Lumbar Spine: thoraco-lumbar ROM limited Skin General skin exam: no rashes or lesions noted Neuro General: patient oriented x3 and No gait normal (Patient is non ambulatory, uses wheelchair) Cranial nerves: Yes CN's II-XII intact bilaterally Extrem Other: Both legs are very thin and weak, peripheral pulses are not palpable. General: Yes no clubbing, cyanosis or edema (Right foot shows previous amputation of the toes.) and Yes no calf tenderness Psych Appearance: grossly normal and well kempt Speech and movement: Normal speech and movement present Assessment & Plan Assessment & Plan (1) Obesity (BMI 30-39.9): Comment: HE IS MODERATELY OBESE, DIFFICULT FOR HIM TO LOSE WEIGHT. Code(s): E66.9 - Obesity, unspecified Category: Medical Plan: AGAIN DISCUSSED ABOUT DIET, HE IS ON TIRZEPATIDE ( MOUNJARO ) THERAPY AND THIS SHOULD HELP IN SOME WEIGHT REDUCTION. (2) COPD (chronic obstructive pulmonary disease): Comment: HE HAS COMBINATION OF BRONCHIAL ASTHMA/COPD, WELL CONTROLLED AT PRESENT. Code(s): J44.9 - Chronic obstructive pulmonary disease, unspecified Category: Medical Plan: SYMBICORT 160-4.52 PUFFS B.I.D. IPRATROPIUM-ALBUTEROL 3 MALE SOLUTION IN THE NEBULIZER Q 6 HOURS P.R.N. ( USE B.I.D. ANYWAY ) (3) Smoker unmotivated to quit: Comment: HE IS CUTTING DOWN ON HIS SMOKING CURRENTLY HE IS SMOKING 3 CIGARETTES A DAY. Code(s): F17.200 - Nicotine dependence, unspecified, uncomplicated Category: Social Hx Plan: AGAIN EDUCATED AND STRESS THAT HE NEEDS TO QUIT SMOKING COMPLETELY (4) RODGER (obstructive sleep apnea): Comment: HE DOES HAVE PAST HISTORY OF OBSTRUCTIVE SLEEP APNEA, HE HAD STOPPED USING THE CPAP. HIS LAST STUDY IN DECEMBER 2022 SHOWED ONLY MILD OBSTRUCTIVE SLEEP APNEA. DURING A RECENT HOSPITALIZATION, HE WAS TREATED WITH CPAP AND HE DID WELL. HE COMES TODAY ASKING FOR CPAP THERAPY, AND SEEMS TO BE MOTIVATED TO USE IT. Code(s): G47.33 - Obstructive sleep apnea (adult) (pediatric) Category: Medical Plan: BECAUSE HIS STUDY WAS MORE THAN A YEAR AGO, AND HE WAS NONCOMPLIANT, HE NEEDS TO HAVE A POLYSOMNOGRAM STUDY IN THE SLEEP LAB, TO QUALIFY FOR CPAP AGAIN. Coding Level of Care Code Est Pt Level 3 (85108) Diagnoses Obesity (BMI 30-39.9) E66.9 COPD (chronic obstructive pulmonary disease) J44.9 Smoker unmotivated to quit F17.200 RODGER (obstructive sleep apnea) G47.33
--- NOTE | 2023-12-22 11:56 | MHC.OFFVIS ---
Vital Signs 12/22/23 11:04 12/22/23 11:57 Height 6 ft 2 in Weight 264 lb 8.875 oz BMI 34.0 34.0 BP 150/74 H Blood Pressure Location Rt brachial Position Sitting Pulse 88 Pulse Source Pulse Oximeter Pulse Oximetry (%) 98 Oxygen Delivery Method Room Air Intake Visit Reasons: Obstructive sleep apnea Allergies No Known Allergies Allergy (Verified 12/22/23 11:20) Medication List - Last Reconciled 12/22/23 by Edmundo Hammond MD amlodipine 10 mg PO DAILY aspirin 81 mg PO DAILY atorvastatin 40 mg PO QPM [bed rail As directed] carvedilol 25 mg PO BID Dexcom G6 Sensor (blood-glucose sensor) As directed change every 10 days LEE NS Dexcom G6 Transmitter (blood-glucose transmitter) As directed NS duloxetine 60 mg PO DAILY fluticasone propionate 50 mcg/actuation 1 spray intranasal DAILY FreeStyle Lancets (lancets) USE TO TEST FINGER STICK BLOOD SUGAR 3 (THREE) TIMES A DAY NS furosemide mg PO TID gabapentin 300 mg PO Q8H 30 days Grab bar one long bar 33-36 inches for inside the shower, one regular bar 18-24 inches for outside the shower [Hand rails As directed] hydralazine 10 mg PO TID insulin aspart U-100 (Novolog FlexPen U-100 Insulin aspart) 30 units (0.3 mL) subcut TID insulin glargine (Lantus Solostar U-100 Insulin) 24 units subcut QPM insulin syringe-needle U-100 (Comfort EZ Insulin Syringe) USE WITH insulin two (2) times a day ipratropium-albuterol 0.5 mg-3 mg(2.5 mg base)/3 mL 3 mL inhalation Q6-8H PRN 30 days ipratropium-albuterol 0.5 mg-3 mg(2.5 mg base)/3 mL 3 mL inhalation QID PRN isosorbide mononitrate ER 30 mg PO DAILY loratadine 10 mg PO DAILY nicotine 1 patch transdermal DAILY 28 days nortriptyline 50 mg PO BEDTIME omega-3 acid ethyl esters (Lovaza) 2 caps PO BID [overbed table with wheels As directed] pen needle, diabetic (Comfort EZ Pen [place]) USE DIRECTED 3 (THREE) TIMES A DAY prazosin 1 mg PO BEDTIME [shower bar As directed] [Shower seat As directed] Symbicort 160-4.5 mcg/actuation (budesonide-formoterol) 2 puffs PO Q12H NS tirzepatide (Mounjaro) 7.5 mg (0.5 mL) subcut QWEEK [wheelchair As directed] [wheelchair As directed] [wheelchair ramp Pt is wheelchair bound, needs a ramp to exit the front door and 6 steps to get to the sidewalk] [facility] Medical History Intermittent lightheadedness History of CVA with residual deficit Left cervical lymphadenopathy Obesity (BMI 30-39.9) Normocytic normochromic anemia COPD (chronic obstructive pulmonary disease) Cigarette smoker Smoker unmotivated to quit RODGER (obstructive sleep apnea) Generalized anxiety disorder 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 Essential hypertension Allergic rhinitis Mixed dyslipidemia Amputation, toe, traumatic Vitamin D deficiency Diabetes mellitus with neuropathy Diabetes mellitus with hyperglycemia, with long-term current use of insulin Osteoarthritis Fibromyalgia Diabetic peripheral angiopathy Spondylosis of cervical spine Diabetic neurogenic arthropathy Surgical History History of foot surgery Family History Father HTN (hypertension) Diabetes Mental health disorder Mother HTN (hypertension) Brother Stroke Social History Household Members: Spouse and Children Housing: Apartment Alcohol intake: never Patient Tobacco Use Status: Current someday Tobacco user Cigarettes Per Day: 3 Years Smoked: 36 e-Cigarette/Vaping Use: Never Used Current occupational status: disabled Cognitive needs: No Hearing needs: No Vision needs: No Physical Exam Vital Signs: Last Vital Signs Pulse 88 12/22/23 11:04 BP 150/74 H 12/22/23 11:04 Pulse Ox 98 12/22/23 11:04 Oxygen Delivery Method Room Air 12/22/23 11:04 BMI result Body Mass Index 34.0 Assessment & Plan Assessment & Plan (1) Obesity (BMI 30-39.9): Comment: HE IS MODERATELY OBESE, DIFFICULT FOR HIM TO LOSE WEIGHT. Code(s): E66.9 - Obesity, unspecified Category: Medical (2) COPD (chronic obstructive pulmonary disease): Comment: HE HAS COMBINATION OF BRONCHIAL ASTHMA/COPD, WELL CONTROLLED AT PRESENT. Code(s): J44.9 - Chronic obstructive pulmonary disease, unspecified Category: Medical (3) Smoker unmotivated to quit: Comment: HE IS CUTTING DOWN ON HIS SMOKING CURRENTLY HE IS SMOKING 3 CIGARETTES A DAY. Code(s): F17.200 - Nicotine dependence, unspecified, uncomplicated Category: Social Hx Plan: ENCOURAGED TO STOP SMOKING COMPLETELY . (4) RODGER (obstructive sleep apnea): Comment: HE DOES HAVE PAST HISTORY OF OBSTRUCTIVE SLEEP APNEA, HE HAD STOPPED USING THE CPAP. HIS LAST STUDY IN DECEMBER 2022 SHOWED ONLY MILD OBSTRUCTIVE SLEEP APNEA. DURING A RECENT HOSPITALIZATION, HE WAS TREATED WITH CPAP AND HE DID WELL. HE COMES TODAY ASKING FOR CPAP THERAPY, AND SEEMS TO BE MOTIVATED TO USE IT. Code(s): G47.33 - Obstructive sleep apnea (adult) (pediatric) Category: Medical Plan: HE IS SCHEDULED TO HAVE POLYSOMNOGRAM STUDY IN THE SLEEP LAB, AND STILL WAITING FOR THAT. Coding Level of Care Code Est Pt Level 4 (91448) Diagnoses Obesity (BMI 30-39.9) E66.9 COPD (chronic obstructive pulmonary disease) J44.9 Smoker unmotivated to quit F17.200 RODEGR (obstructive sleep apnea) G47.33
[2023-12-22 11:57] VITALS: BMI 34.0
== END 2023-12-22 11:27 | disposition home or self-care (01) ==
LOC: HO.HPS 11:01
PROVIDERS: PCP Internal Medicine; Visit Provider Internal Medicine
DX: E66.9 Obesity, unspecified (principal); J44.9 Chronic obstructive pulmonary disease, unspecified; F17.200 Nicotine dependence, unspecified, uncomplicated; G47.33 Obstructive sleep apnea (adult) (pediatric)
CPT/HCPCS: 99213

== ENCOUNTER → 2023-12-22 11:00 | Outpatient (BNVA) | payer OTHER, SELFPAY | PROVIDERS: PCP Internal Medicine; Visit Provider Internal Medicine | DX: J44.9 Chronic obstructive pulmonary disease, unspecified (principal); J30.9 Allergic rhinitis, unspecified; G47.33 Obstructive sleep apnea (adult) (pediatric); F17.210 Nicotine dependence, cigarettes, uncomplicated; E66.9 Obesity, unspecified; Z68.34 Body mass index [BMI] 34.0-34.9, adult | CPT/HCPCS: 99212 ==

== ENCOUNTER 2024-01-04 12:13 | Outpatient (AMB) | payer OTHER, SELFPAY ==
[2024-01-04 12:50] VITALS: BP 128/80; PULSE 71; O2SAT 97; BMI 34.3
--- NOTE | 2024-01-04 12:50 | A.OFFPC_ITS ---
Vital Signs 01/04/24 12:50 Height 6 ft 2 in Weight 267 lb BMI 34.3 BP 128/80 Blood Pressure Location Rt brachial Position Sitting Pulse 71 Pulse Source Pulse Oximeter Pulse Oximetry (%) 97 Oxygen Delivery Method Room Air Intake Visit Reasons: Annual PE Intake Note: Pt is here today for his PE Allergies No Known Allergies Allergy (Verified 01/04/24 13:07) Medication List - Last Reconciled 01/04/24 by Riya Olmos MD amlodipine 10 mg PO DAILY aspirin 81 mg PO DAILY atorvastatin 40 mg PO QPM [bed rail As directed] carvedilol 25 mg PO BID Dexcom G6 Sensor (blood-glucose sensor) As directed change every 10 days LEE NS Dexcom G6 Transmitter (blood-glucose transmitter) As directed NS duloxetine 60 mg PO DAILY fluticasone propionate 50 mcg/actuation 1 spray intranasal DAILY FreeStyle Lancets (lancets) USE TO TEST FINGER STICK BLOOD SUGAR 3 (THREE) TIMES A DAY NS furosemide mg PO TID gabapentin 300 mg PO Q8H 30 days Grab bar one long bar 33-36 inches for inside the shower, one regular bar 18-24 inches for outside the shower [Hand rails As directed] hydralazine 10 mg PO TID insulin aspart U-100 (Novolog FlexPen U-100 Insulin aspart) 10 units subcut TID insulin glargine (Lantus Solostar U-100 Insulin) 24 units subcut QPM insulin syringe-needle U-100 (Comfort EZ Insulin Syringe) USE WITH insulin two (2) times a day ipratropium-albuterol 0.5 mg-3 mg(2.5 mg base)/3 mL 3 mL inhalation Q6-8H PRN 30 days ipratropium-albuterol 0.5 mg-3 mg(2.5 mg base)/3 mL 3 mL inhalation QID PRN isosorbide mononitrate ER 30 mg PO DAILY loratadine 10 mg PO DAILY nicotine 1 patch transdermal DAILY 28 days nortriptyline 50 mg PO BEDTIME omega-3 acid ethyl esters (Lovaza) 2 caps PO BID [overbed table with wheels As directed] pen needle, diabetic (Comfort EZ Pen [place]) USE DIRECTED 3 (THREE) TIMES A DAY prazosin 1 mg PO BEDTIME [shower bar As directed] [Shower seat As directed] Symbicort 160-4.5 mcg/actuation (budesonide-formoterol) 2 puffs PO Q12H NS tirzepatide (Mounjaro) 7.5 mg (0.5 mL) subcut QWEEK [wheelchair As directed] [wheelchair As directed] [wheelchair ramp Pt is wheelchair bound, needs a ramp to exit the front door and 6 steps to get to the sidewalk] Tobacco use date assessed: 01/04/24 Dental Screening Dental Screen Date: 11/05/23 Did you have a dental visit in the last 12 months?: No Did you have a dental problem in the last 6 months where you did not have access to dental care?: No Was dental information given to patient?: Patient has dentist HPI Annual PE HPI Details 53-year-old male with past medical histo ry of morbid obesity, chronic kidney disease stage 4, peripheral vascular disease status post metatarsal amputation, hypertension, type 2 diabetes mellitus, COPD, hyperlipidemia, depression and anxiety, here today for his physical exam. He was recently seen by Cardiology at [facility], and decreased his carvedilol dose to 12.5 mg 1 tablet twice a day and increased isosorbide mononitrate ER dose to 60 mg daily, as he developed episode of hypotension on higher dose of carvedilol. Was continued on same dose of amlodipine at 10 mg daily and hydralazine 10 mg 1 tab 3 times a day. Blood pressure today is within normal limits. Diabetes mellitus controlled with Hemoglobin A1c done today at 6.2%. He is currently on Lantus 24 units on discharge, sliding scale of insulin with meals, metformin and Jardiance was discontinued as GFR was less than 20.. He was placed on Tylenol and gabapentin for neuropathy. . For his Depression and anxiety, currently on duloxetine 60 mg daily, resumed on nortriptyline and takes clonazepam as needed at bedtime for acute anxiety attack He is overdue for colon cancer screening, referred to GI today. [facility] Medical History (Updated 01/04/24 @ 13:26 by Riya Olmos MD) Intermittent lightheadedness History of CVA with residual deficit Left cervical lymphadenopathy Obesity (BMI 30-39.9) Normocytic normochromic anemia COPD (chronic obstructive pulmonary disease) Cigarette smoker Smoker unmotivated to quit RODGER (obstructive sleep apnea) Generalized anxiety disorder 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 Essential hypertension Allergic rhinitis Mixed dyslipidemia Amputation, toe, traumatic Vitamin D deficiency Diabetes mellitus with neuropathy Diabetes mellitus with hyperglycemia, with long-term current use of insulin Osteoarthritis Fibromyalgia Diabetic peripheral angiopathy Spondylosis of cervical spine Diabetic neurogenic arthropathy Surgical History History of foot surgery Family History Father HTN (hypertension) Diabetes Mental health disorder Mother HTN (hypertension) Brother Stroke Social History Household Members: Spouse and Children Housing: Apartment Alcohol intake: never Patient Tobacco Use Status: Current someday Tobacco user Cigarettes Per Day: 3 Years Smoked: 36 e-Cigarette/Vaping Use: Never Used Current occupational status: disabled Cognitive needs: No Hearing needs: No Vision needs: No Questionnaire Thrive Questionnaire Date Thrive assessed: 01/04/24 I am a: Patient What is your living situation today?: I have a steady place to live Within the past 12 months, did the food you bought not last and you didn't have the money to get more?: Never true Within the past 12 months, did you worry whether your food would run out before you got money to buy more?: Never true Do you have trouble paying for medicines?: No Do you have trouble getting transportation to medical appointments?: No Do you have trouble paying your heating and electricity bill?: No Do you have trouble taking care of your child, family member or friend?: No Do you have trouble with day-to-day activities such as bathing, preparing meals, shopping, managing finances, etc.?: No Are you currently unemployed and looking for a job?: No Are you interested in more education?: No Please select the resources that you would like help with: None Currently or been in a relationship where the following occur: I choose not to answer THRIVE Score: 0 AUDIT C Alcohol Use Questionnaire (AUDIT-C) 1. How often do you have a drink containing alcohol?: Never Total Score: 0 DEBORAH-7 AMB Questionnaire DEBORAH-7 Date DEBORAH - 7 assessed: 05/13/24 Source: Developed by Drs. Zachary Luis, Daphnie Nina, Froylan Jose and colleagues, with an educational samuel from [employer]. Review of Systems Const All systems reviewed & are unremarkable except as noted in HPI and below Eyes Details: [facility], currently being seen for glaucoma and diabetic retinopathy screening Reports no additional complaints ENT Reports no additional complaints Card Denies chest pain at rest, Denies irregular heart rhythm and Denies leg edema Resp Reports as per HPI GI Reports no additional complaints Reports no additional complaints Musc Details: Sees Dr. Hernandez for Podiatry Reports abnormal gait Skin/Breast Reports system reviewed and no additional complaints, except as documented Neuro Reports abnormal gait Psych Reports no additional complaints Endo Reports no additional complaints Jomar/Lymph Reports no additional complaints Aller/Immun Reports no additional complaints Physical exam (Primary Care) Vital Signs: Last Vital Signs Pulse 71 01/04/24 12:50 BP 128/80 01/04/24 12:50 Pulse Ox 97 01/04/24 12:50 Oxygen Delivery Method Room Air 01/04/24 12:50 BMI result Body Mass Index 34.3 Tobacco/Smoking Status: Tobacco use Status Tobacco use date assessed 01/04/24 01/04/24 13:00 Patient Tobacco Use Status Current someday Tobacco 01/04/24 12:52 e-Cigarette/Vaping Use Never Used 01/04/24 12:52 Thrive Assessment: Date of Thrive Assessment Date Thrive assessed 01/04/24 01/04/24 13:00 Currently or been in a relationship where the following occur: I choose not to answer Const Other: Daughter accompanying patient General: no acute distress and alert Nutritional Appearance: obese morbidly obese Orientation/consciousness: patient oriented x3 Limitations: wheelchair HENMT Ears: external ears normal, TM's normal bilaterally and EAC's normal General nose exam: Normal external nose present and No nasal discharge present Mouth: Normal oral and palatal mucosa present, oropharynx normal and moist mucous membranes Eyes General: appearance normal, both eyes and all related structures Neck Neck: Yes full ROM, Yes no lymphadenopathy and Yes supple Chest Chest palpation & inspection: normal inspection of the chest Resp Effort & Inspection: normal respiratory effort and able to speak in complete sentences Auscultation: clear to auscultation bilaterally Cardio Rate: regular rate Rhythm: regular rhythm Heart sounds: S1 normal heart sound present and S2 normal heart sound present GI Palpation (GI): Soft to palpation, nontender and no masses Auscultation: normal bowel sounds Back/Spine/Pelvis Back: No back tenderness Skin General skin exam: no rashes or lesions noted Neuro General: patient oriented x3 and no focal motor deficits Cranial nerves: Yes CN's II-XII intact bilaterally Cognition (Neuro): normal cognition Extrem General: Yes full ROM, Yes no pedal edema, Yes no calf tenderness, Yes amputation noted (For toes on the right, only the 5th toe remaining) and Yes edema (Pitting edema in both lower extremity) Psych Appearance: grossly normal and well kempt Mental Status: mental status grossly normal Speech and movement: Normal speech and movement present Affect: normal affect Attitude: cooperative Thought process: Normal thought process present Thought content: Normal thought content present Office Procedures Flu Questionnaire Does the patient have a severe egg allergy?: No Does the patient have severe life threatening allergies?: No Does the patient have a fever or illness today?: No Has the patient ever had Guillain-[place] Syndrome?: No Has the patient ever had any past reaction to a flu shot?: No Results AMB Hemoglobin A1c AMB Hemoglobin A1c 6.2 % Last Edit by Bijal Christiansen CMA on 01/04/24 13:04 Immunizations Fluarix Triv [id number] (PF) 45 mcg (15 mcg x 3)/0.5 mL IM syringe Performing Provider: Riya Olmos MD Performing Location[place] [facility] Administered by: Bijal Christiansen CMA on 01/04/24 13:33 Dose Route Admin Location Dispensed Lot Number Expiration Date [facility] Scientific Research Manager 0.5 mL IM Right Deltoid 0.5 mL [id number] 08/15/24 [id number] Readmill VIS Given Date VIS Provided VIS Publication Date 01/04/24 Single Vaccine 20 Eligibility Eligibility Date Funding Source Not [facility] Eligible 01/04/24 Private Results Reviewed Results Reviewed: Laboratory Last Values Hgb A1c (Clinic) 6.2 % (4.0-6.0) H 01/04/24 13:03 Coding Level of Care Code Est Pt Prev Care 40-64y(22698) Diagnoses Annual visit for general adult medical examination with abnormal findings Z00.01 Encounter for screening for malignant neoplasm of colon Z12.11 History of CVA with residual deficit I69.30 Stage 3a chronic kidney disease N18.31 Chronic kidney disease stage 3 subtype: stage 3a (GFR 45-59) Obesity (BMI 30-39.9) E66.9 COPD (chronic obstructive pulmonary disease) J44.9 Smoker unmotivated to quit F17.200 RODGER (obstructive sleep apnea) G47.33 Generalized anxiety disorder F41.1 Essential hypertension I10 Mixed dyslipidemia E78.2 Type 2 diabetes mellitus with diabetic neuropathy, without long-term current use of insulin E11.40 Diabetes mellitus extermination inspector insulin use: without extermination inspector use Diabetes mellitus type: type 2 Assessment & Plan Assessment & Plan (1) Annual visit for general adult medical examination with abnormal findings: Code(s): Z00.01 - Encounter for general adult medical examination with abnormal findings Plan: Will check appropriate labs. Recommended dental visit every 6 months and regular eye exams, yearly for diabetes retinopathy screening.. Take adequate calcium in diet and vitamin-D 3 at 2000 IU per cap once a day, in addition to weight-bearing exercises to help maintain good muscle tone and weight control. Instructed to do self-testicular exam check for any mass, referred to GI Clinic for his screening colonoscopy. Flu vaccine given today. Reminded in his COVID booster, up-to-date with his Tdap, has received already 1 dose of the shingles vaccine (2) Encounter for screening for malignant neoplasm of colon: Code(s): Z12.11 - Encounter for screening for malignant neoplasm of colon Plan: Referral to gastroenterology clinic for his colon cancer screening (3) History of CVA with residual deficit: Code(s): I69.30 - Unspecified sequelae of cerebral infarction Category: Medical Plan: Continue aspirin 81 mg daily, reinforced importance of strict control of blood pressure, diabetes mellitus and lipids (4) CKD (chronic kidney disease) stage 3, GFR 30-59 ml/min: Code(s): N18.30 - Chronic kidney disease, stage 3 unspecified Category: Medical Qualifiers: Chronic kidney disease stage 3 subtype: stage 3a (GFR 45-59) Qualified Code(s): N18.31 - Chronic kidney disease, stage 3a Plan: Currently followed by Nephrology (5) Obesity (BMI 30-39.9): Comment: HE IS MODERATELY OBESE, DIFFICULT FOR HIM TO LOSE WEIGHT. Code(s): E66.9 - Obesity, unspecified Category: Medical Plan: Discussed need to increase activity and weight reduction. Recommended focusing on improving health instead of dieting. Mediterranean diet is a healthy diet that helps, limit food high in fat, sugar, and calories. Eat slowly, pay attention to portion sizes, plan your meals ahead of time, start regular physical activity, at least 150 minutes of moderate intensity exercise, or 90 minutes per week of vigorous exercise. Keeping a food diary, tracking what you eat and your physical activity can help assess what improvements you can make. There are many health problems associated with being overweight/obese, so it is important to improve your diet and exercise. (6) COPD (chronic obstructive pulmonary disease): Comment: HE HAS COMBINATION OF BRONCHIAL ASTHMA/COPD, WELL CONTROLLED AT PRESENT. Code(s): J44.9 - Chronic obstructive pulmonary disease, unspecified Category: Medical Plan: Currently on Symbicort, and DuoNeb to use as needed for episodes of bronchospasm and wheezing. Followed by Pulmonary Clinic. Flu vaccine given today (7) Smoker unmotivated to quit: Comment: HE IS CUTTING DOWN ON HIS SMOKING CURRENTLY HE IS SMOKING 3 CIGARETTES A DAY. Code(s): F17.200 - Nicotine dependence, unspecified, uncomplicated Category: Social Hx Plan: Patient strongly advised to stop smoking, as smoking damages blood vessels, degenerative of joints and spine, damage to lungs and heart., predisposes to developing certain cancers like lung, breast, bladder, colon. Recommended to try decreasing cigarette use by 1-2 cigarettes a day. Advised to monitor what triggers are for smoking so that this can be discussed on the next office visit. We can discuss different options to quit smoking when ready. (8) RODGER (obstructive sleep apnea): Comment: HE DOES HAVE PAST HISTORY OF OBSTRUCTIVE SLEEP APNEA, HE HAD STOPPED USING THE CPAP. HIS LAST STUDY IN DECEMBER 2022 SHOWED ONLY MILD OBSTRUCTIVE SLEEP APNEA. DURING A RECENT HOSPITALIZATION, HE WAS TREATED WITH CPAP AND HE DID WELL. HE COMES TODAY ASKING FOR CPAP THERAPY, AND SEEMS TO BE MOTIVATED TO USE IT. Code(s): G47.33 - Obstructive sleep apnea (adult) (pediatric) Category: Medical Plan: Followed by Dr. Hammond (9) Generalized anxiety disorder: Code(s): F41.1 - Generalized anxiety disorder Category: Medical Plan: Currently on duloxetine (10) Essential hypertension: Code(s): I10 - Essential (primary) hypertension Category: Medical Plan: Blood pressure at goal of less than 130/80. Continue with current medication. Reinforced importance of following a low sodium diet, getting regular exercise, and lowering stress levels. (11) Mixed dyslipidemia: Code(s): E78.2 - Mixed hyperlipidemia Category: Medical Plan: Fasting lipid panel ordered today. Continue on atorvastatin 40 mg daily (12) Diabetes mellitus with neuropathy: Code(s): E11.40 - Type 2 diabetes mellitus with diabetic neuropathy, unspecified Category: Medical Qualifiers: Diabetes mellitus extermination inspector insulin use: without [facility] use Diabetes mellitus type: type 2 Qualified Code(s): E11.40 - Type 2 diabetes mellitus with diabetic neuropathy, unspecified Plan: Recent lab results reviewed with patient, with sugar and hemoglobin A1c stable and at goal. Continued with NovoLog subcutaneously given 3 times a day per sliding scale and Lantus 24 units at bedtime. He also is on Mounjaro 7.5 mg given once a week subcutaneously. Currently using Dexcom G6 do it her blood sugar readings. Reinforced diabetic diet and regular exercise with patient. Counseled regarding importance of yearly diabetes retinopathy screening. Patient advised to inspect feet daily, for any signs of injury, callus or infe ction. Compliance with diet and regular exercise again stressed. Blood pressure goal is less than 130/80, goal LDL is less than 100 and goal hemoglobin A1c is less than 7% follow-up appointment made in-3--months, after fasting labs done. Flu shot given today Orders: Orders AMB Hemoglobin A1c 01/04/24 E11.65 - Type 2 diabetes mellitus with hyperglycemia, Z79.4 - jail (current) use of insulin Influenza [id number] Immunization 01/04/24 Z23 - Encounter for immunization Lipid Panel 01/04/24 E78.2 - Mixed hyperlipidemia Referrals Gastroenterology Referral Z12.11 - Encounter for screening for malignant neoplasm of colon
== END 2024-01-04 13:37 | disposition home or self-care (01) ==
PROVIDERS: PCP Internal Medicine; Visit Provider Internal Medicine
DX: Z00.01 Encounter for general adult medical examination with abnormal findings (principal); I12.9 Hypertensive chronic kidney disease with stage 1 through stage 4 chronic kidney disease, or unspecified chronic kidney disease; N18.31 Chronic kidney disease, stage 3a; J44.9 Chronic obstructive pulmonary disease, unspecified; E11.40 Type 2 diabetes mellitus with diabetic neuropathy, unspecified; Z12.11 Encounter for screening for malignant neoplasm of colon; I69.30 Unspecified sequelae of cerebral infarction; E66.9 Obesity, unspecified; F17.200 Nicotine dependence, unspecified, uncomplicated; G47.33 Obstructive sleep apnea (adult) (pediatric); F41.1 Generalized anxiety disorder; E78.2 Mixed hyperlipidemia

== ENCOUNTER → 2024-01-04 12:13 | Outpatient (BNVA) | payer OTHER, SELFPAY | PROVIDERS: PCP Internal Medicine; Visit Provider Internal Medicine | DX: Z00.01 Encounter for general adult medical examination with abnormal findings (principal); Z23 Encounter for immunization; I69.30 Unspecified sequelae of cerebral infarction; I12.9 Hypertensive chronic kidney disease with stage 1 through stage 4 chronic kidney disease, or unspecified chronic kidney disease; E11.22 Type 2 diabetes mellitus with diabetic chronic kidney disease; N18.31 Chronic kidney disease, stage 3a; E66.9 Obesity, unspecified; J44.9 Chronic obstructive pulmonary disease, unspecified; G47.33 Obstructive sleep apnea (adult) (pediatric); F41.1 Generalized anxiety disorder; E78.2 Mixed hyperlipidemia; E11.40 Type 2 diabetes mellitus with diabetic neuropathy, unspecified; F17.200 Nicotine dependence, unspecified, uncomplicated; Z71.6 Tobacco abuse counseling | CPT/HCPCS: 83036; 90471; 90656; 99396 ==

== ENCOUNTER 2024-01-19 10:08 | Outpatient (AMB) | payer OTHER, SELFPAY ==
--- NOTE | 2024-01-19 10:28 | A.OFFVIS_ITS ---
VS Expanded 01/19/24 13:29 Height 6 ft 2 in Weight 265 lb 3 oz BMI 34.0 Intake Visit Reasons: T2DM Allergies No Known Allergies Allergy (Verified 01/04/24 13:07) Nutrition Presentation Details: Pt presents for MNT f/u for T2DM Pt reports doing well, has no questions at this time. HAs not monitored BG related to lack of sensor supplies, does have glucometer supplies Reports having 2-3 meals/day and choosing fruit in between meals , mindful of amount of salt consumed and is cooking wtiih no salt added BS Monitoring Most Recent Diabetes Results: Creatinine 4.16 mg/dL (0.5-1.4) H* 11/12/23 Blood Urea Nitrogen 39 mg/dL (9-16) H 11/12/23 Sodium 139 mmol/L (135-145) 11/12/23 Potassium 5.0 mmol/L (3.3-5.1) 11/12/23 Chloride 106 mmol/L (96-108) 11/12/23 Carbon Dioxide 26 mmol/L (22-29) 11/12/23 Calcium 8.9 mg/dL (8.4-10.2) 11/12/23 AST 12 U/L (5-37) 11/12/23 ALT 9 U/L (0-40) 11/12/23 Total Protein 7.2 g/dL (6.5-8.0) 11/12/23 Albumin 3.2 g/dL (3.5-5.0) L 11/12/23 PFSH Medical History (Updated 01/04/24 @ 13:26 by Riya Olmos MD) Intermittent lightheadedness History of CVA with residual deficit Left cervical lymphadenopathy Obesity (BMI 30-39.9) Normocytic normochromic anemia COPD (chronic obstructive pulmonary disease) Cigarette smoker Smoker unmotivated to quit RODGER (obstructive sleep apnea) Generalized anxiety disorder 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 Essential hypertension Allergic rhinitis Mixed dyslipidemia Amputation, toe, traumatic Vitamin D deficiency Diabetes mellitus with neuropathy Diabetes mellitus with hyperglycemia, with long-term current use of insulin Osteoarthritis Fibromyalgia Diabetic peripheral angiopathy Spondylosis of cervical spine Diabetic neurogenic arthropathy Surgical History History of foot surgery Family History Father HTN (hypertension) Diabetes Mental health disorder Mother HTN (hypertension) Brother Stroke Social History Household Members: Spouse and Children Housing: Apartment Alcohol intake: never Patient Tobacco Use Status: Current someday Tobacco user Cigarettes Per Day: 3 Years Smoked: 36 e-Cigarette/Vaping Use: Never Used Current occupational status: disabled Cognitive needs: No Hearing needs: No Vision needs: No Assessment & Plan Assessment & Plan (1) Diabetes mellitus with hyperglycemia, with long-term current use of insulin: Code(s): E11.65 - Type 2 diabetes mellitus with hyperglycemia; Z79.4 - intermediate (current) use of insulin Category: Medical Qualifiers: Diabetes mellitus type: type 2 Qualified Code(s): E11.65 - Type 2 diabetes mellitus with hyperglycemia; Z79.4 - intermediate (current) use of insulin Plan: USED WEIGHT: 122 kg Est kcal needs as per MSJ: 2669-500 for sedentary lifestyle = 2169 est protein needs as per 1 g/kg current bw:122 g/d est fluid needs as per 25 ml/kg bw: 3000 ml/d Rec fiber intake : 30-38 g as tolerated Rec Na intake : < 1500 mg/d Review meal planning for glucose control and low sodium food concepts Patient Instructions: Monitor BG at least once a day via fingerstick until receiving sensor supplies for self assessment Continue having small meals per day following healthy plate method, continue watching salt consumption Coding Level of Care Code Nutr Indiv Subseq ([id number]) Diagnoses Type 2 diabetes mellitus with hyperglycemia, with long-term current use of insulin E11.65; Z79.4 Diabetes mellitus type: type 2 Time Spent (min) 20
[2024-01-19 13:29] VITALS: BMI 34.0
== END 2024-01-19 10:35 | disposition home or self-care (01) ==
PROVIDERS: PCP Internal Medicine; Visit Provider Dietitian, Registered
DX: E11.65 Type 2 diabetes mellitus with hyperglycemia (principal); Z79.4 Long term (current) use of insulin

== ENCOUNTER → 2024-01-19 10:08 | Outpatient (BNVA) | payer OTHER, SELFPAY | PROVIDERS: PCP Internal Medicine; Visit Provider Dietitian, Registered | DX: E11.65 Type 2 diabetes mellitus with hyperglycemia (principal); Z71.3 Dietary counseling and surveillance; Z79.4 Long term (current) use of insulin | CPT/HCPCS: 97803 ==

== ENCOUNTER 2024-01-28 09:35 | Outpatient (AMB) | payer OTHER, SELFPAY ==
--- NOTE | 2024-01-28 09:39 | A.OFFVIS_ITS ---
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 Most recent HbA1c: 6.2%, 01/04/2024 Random Glucose- 208 mg/dL, Today Dispensary Technician Required: Yes Dispensary Technician Language: Critical Power Install Technician Services: Dispensary Technician Present (VIA VIDEO CALL) Dispensary Technician Name: RYLEE Palmer/DARREL BERTRAND Information Interpreted: non-clinical & clinical Accompanied by: Self / Same As Patient Allergies No Known Allergies Allergy (Verified 01/28/24 09:54) Medication List - Last Reconciled 01/28/24 by Jeannette Naqvi MD amlodipine 10 mg PO DAILY aspirin 81 mg PO DAILY atorvastatin 40 mg PO QPM [bed rail As directed] carvedilol 25 mg PO BID Dexcom G6 Sensor (blood-glucose sensor) As directed change every 10 days LEE NS Dexcom G6 Transmitter (blood-glucose transmitter) As directed NS duloxetine 60 mg PO DAILY fluticasone propionate 50 mcg/actuation 1 spray intranasal DAILY FreeStyle Lancets (lancets) USE TO TEST FINGER STICK BLOOD SUGAR 3 (THREE) TIMES A DAY NS furosemide mg PO TID gabapentin 300 mg PO Q8H 30 days Grab bar one long bar 33-36 inches for inside the shower, one regular bar 18-24 inches for outside the shower [Hand rails As directed] hydralazine 10 mg PO TID insulin aspart U-100 (Novolog FlexPen U-100 Insulin aspart) 30 units (0.3 mL) subcut TID insulin glargine (Lantus Solostar U-100 Insulin) 48 units (0.48 mL) subcut QPM insulin syringe-needle U-100 (Comfort EZ Insulin Syringe) USE WITH insulin two (2) times a day ipratropium-albuterol 0.5 mg-3 mg(2.5 mg base)/3 mL 3 mL inhalation Q6-8H PRN 30 days ipratropium-albuterol 0.5 mg-3 mg(2.5 mg base)/3 mL 3 mL inhalation QID PRN isosorbide mononitrate ER 30 mg PO DAILY loratadine 10 mg PO DAILY nicotine 1 patch transdermal DAILY 28 days nortriptyline 50 mg PO BEDTIME omega-3 acid ethyl esters (Lovaza) 2 caps PO BID [overbed table with wheels As directed] pen needle, diabetic (Comfort EZ Pen [place]) USE DIRECTED 3 (THREE) TIMES A DAY prazosin 1 mg PO BEDTIME [shower bar As directed] [Shower seat As directed] Symbicort 160-4.5 mcg/actuation (budesonide-formoterol) 2 puffs PO Q12H NS tirzepatide (Mounjaro) 7.5 mg (0.5 mL) subcut QWEEK [wheelchair As directed] [wheelchair As directed] [wheelchair ramp Pt is wheelchair bound, needs a ramp to exit the front door and 6 steps to get to the sidewalk] HPI Comments Details: 52 YO M who is seen in consultation for T2DM at the request of PCP. Past medical: CKD, htn, hld, bronchitis (currently on prednisone) Initially diagnosed with T2DM at age 34. Hospitalized for CHF exacerbation Oct [facility], lost significant amount of weight, dietary changes, insulin doses have decreased. Current regimen OFF metformin 1000 mg BID due to CKD OFF Jardiance 25 mg QD Mounjaro 7.5 mg Qwkly Lantus 24 units. Previously 48 units Novolog 8-10 units TIDCC. Previously on 30 units premeals OFF metformin 1000 mg BID due to CKD OFF Jardiance 25 mg QD CKD Dexcom download average 192 with GMI at N/A. Target 41% range with 59% hyperglycemia, 0% hypoglycemia. Family history of T2DM in father and brother have Type 2 DM. eye exam UTD, Has retinopathy. Has neuropathy, last foot exam , sees podiatry. Has HLD, on statin. Had diabetes education. ROS CONSTITUTIONAL: Denies weight loss, fever and chills. HEENT: Denies changes in vision and hearing. RESPIRATORY: Denies SOB and cough. CV: Denies palpitations and CP GI: Denies abdominal pain, nausea, vomiting and diarrhea. : Denies dysuria and urinary frequency. MSK: Denies new myalgia and joint pain. SKIN: Denies rash and pruritus. NEUROLOGICAL: Denies headache PSYCHIATRIC: Denies recent changes in mood. PHYSICAL EXAM: GENERAL: in WC EYES: EOMI. Anicteric. HENT: Moist mucous membranes. No scleral icterus. No cervical lymphadenopathy. LUNGS: Clear to auscultation bilaterally. CARDIOVASCULAR: Regular rate and rhythm. No murmur. No JVD. ABDOMEN: Soft, non-tender +bs EXTREMITIES: Trace to 1+ b/l edema. Non-tender. SKIN: No foot rashes or lesions. Warm. NEUROLOGIC: No focal neurological deficits. CN II-XII grossly intact PSYCHIATRIC: Cooperative. Appropriate mood and affect [facility] Medical History (Updated 01/04/24 @ 13:26 by Riya Olmso MD) Intermittent lightheadedness History of CVA with residual deficit Left cervical lymphadenopathy Obesity (BMI 30-39.9) Normocytic normochromic anemia COPD (chronic obstructive pulmonary disease) Cigarette smoker Smoker unmotivated to quit RODGER (obstructive sleep apnea) Generalized anxiety disorder 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 Essential hypertension Allergic rhinitis Mixed dyslipidemia Amputation, toe, traumatic Vitamin D deficiency Diabetes mellitus with neuropathy Diabetes mellitus with hyperglycemia, with long-term current use of insulin Osteoarthritis Fibromyalgia Diabetic peripheral angiopathy Spondylosis of cervical spine Diabetic neurogenic arthropathy Surgical History History of foot surgery Family History Father HTN (hypertension) Diabetes Mental health disorder Mother HTN (hypertension) Brother Stroke Social History Household Members: Spouse and Children Housing: Apartment Alcohol intake: never Patient Tobacco Use Status: Current someday Tobacco user Cigarettes Per Day: 3 Years Smoked: 36 e-Cigarette/Vaping Use: Never Used Current occupational status: disabled Cognitive needs: No Hearing needs: No Vision needs: No Physical Exam Vital Signs: Last Vital Signs Pulse 95 01/28/24 09:46 BP 126/78 01/28/24 09:46 Results Reviewed Results Reviewed: Laboratory Last Values Glucose (Clinic) 208 mg/dL (60-115) H 01/28/24 09:52 Assessment & Plan Assessment & Plan (1) Diabetes mellitus with hyperglycemia, with long-term current use of insulin: Code(s): E11.65 - Type 2 diabetes mellitus with hyperglycemia; 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 harvesting supervisor (current) use of insulin To insulin glargine (Lantus Solostar U-100 Insulin) 24 units (0.24 mL) subcut QPM 15 mL 4RF E11.40 - Type 2 diabetes mellitus with diabetic neuropathy, unspecified, E11.65 - Type 2 diabetes mellitus with hyperglycemia, Z79.4 - 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 harvesting supervisor (current) use of insulin From insulin aspart U-100 (Novolog FlexPen U-100 Insulin aspart) 30 units (0.3 mL) subcut TID 15 mL 5RF E11.65 - Type 2 diabetes mellitus with hyperglycemia, Z79.4 - penitentiary (current) use of insulin To insulin aspart U-100 (Novolog FlexPen U-100 Insulin aspart) subcutaneously 3 times a day; 8-10 units subcutaneous before breakfast and dinner, 14 units before lunch 15 mL 5RF E11.65 - Type 2 diabetes mellitus with hyperglycemia, Z79.4 - penitentiary (current) use of insulin Coding Level of Care Code Est Pt Level 4 (05387) Diagnoses Type 2 diabetes mellitus with hyperglycemia, with long-term current use of insulin E11.65; Z79.4 Diabetes mellitus type: type 2
[2024-01-28 09:46] VITALS: BP 126/78; PULSE 95
[2024-01-28 09:56] LABS: Glucose, Whole Blood 208 mg/dL (60-115)
== END 2024-01-28 10:16 | disposition home or self-care (01) ==
PROVIDERS: PCP Internal Medicine; Visit Provider Internal Medicine
DX: E11.65 Type 2 diabetes mellitus with hyperglycemia (principal); Z79.4 Long term (current) use of insulin

== ENCOUNTER → 2024-01-28 09:35 | Outpatient (BNVA) | payer OTHER, SELFPAY | PROVIDERS: PCP Internal Medicine; Visit Provider Internal Medicine | DX: E11.65 Type 2 diabetes mellitus with hyperglycemia (principal); Z79.4 Long term (current) use of insulin | CPT/HCPCS: 82947; 99212 ==

== ENCOUNTER 2024-02-15 10:57 | Outpatient (AMB) | payer OTHER, SELFPAY ==
--- NOTE | 2024-02-15 11:09 | A.OFFVIS_ITS ---
Intake Intake Visit Reasons: T2DM Patient Sitter Required: Yes Patient Sitter Language: Air Technician Name: Pt's daughter Accompanied by: Daughter Allergies No Known Allergies Allergy (Verified 02/15/24 11:47) HPI Comprehensive Diabetes Asmnt Most Recent Diabetes Results: Microalb/Creat Ratio 1353.7 ug/mg cr 03/17/22 Cholesterol 185 mg/dL (<200) 12/01/22 HDL Cholesterol 24 mg/dL (>40) L 12/01/22 Triglycerides 246 mg/dL (<150) H 12/01/22 Creatinine 4.16 mg/dL (0.5-1.4) H* 11/12/23 Blood Urea Nitrogen 39 mg/dL (9-16) H 11/12/23 Sodium 139 mmol/L (135-145) 11/12/23 Potassium 5.0 mmol/L (3.3-5.1) 11/12/23 Chloride 106 mmol/L (96-108) 11/12/23 Carbon Dioxide 26 mmol/L (22-29) 11/12/23 Calcium 8.9 mg/dL (8.4-10.2) 11/12/23 AST 12 U/L (5-37) 11/12/23 ALT 9 U/L (0-40) 11/12/23 Total Protein 7.2 g/dL (6.5-8.0) 11/12/23 Albumin 3.2 g/dL (3.5-5.0) L 11/12/23 [facility] Medical History (Updated 02/15/24 @ 11:54 by Cole Del Valle MD) Intermittent lightheadedness History of CVA with residual deficit Left cervical lymphadenopathy Obesity (BMI 30-39.9) Normocytic normochromic anemia COPD (chronic obstructive pulmonary disease) Cigarette smoker Smoker unmotivated to quit RODGER (obstructive sleep apnea) Generalized anxiety disorder 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 Essential hypertension Allergic rhinitis Mixed dyslipidemia Amputation, toe, traumatic Vitamin D deficiency Diabetes mellitus with neuropathy Diabetes mellitus with hyperglycemia, with long-term current use of insulin Osteoarthritis Fibromyalgia Diabetic peripheral angiopathy Spondylosis of cervical spine Diabetic neurogenic arthropathy Surgical History History of foot surgery Family History Father HTN (hypertension) Diabetes Mental health disorder Mother HTN (hypertension) Brother Stroke Social History Household Members: Spouse and Children Housing: Apartment Alcohol intake: never Patient Tobacco Use Status: Current someday Tobacco user Cigarettes Per Day: 3 Years Smoked: 36 e-Cigarette/Vaping Use: Never Used Current occupational status: disabled Cognitive needs: No Hearing needs: No Vision needs: No Assessment & Plan Assessment & Plan (1) Diabetes mellitus with neuropathy: Code(s): E11.40 - Type 2 diabetes mellitus with diabetic neuropathy, unspecified Qualifiers: Diabetes mellitus type: type 2 Diabetes mellitus terminal block assembler insulin use: without nursing home use Qualified Code(s): E11.40 - Type 2 diabetes mellitus with diabetic neuropathy, unspecified Plan: Personal Continuous Glucose Monitor: Patients CGM information reviewed, Pt uses Dexcom 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 0% Hyperglycemia:? 41% Time in Range:? 59% Average glucose for the last 2 weeks?172 mg/dL Last A1c in 12/2023 6.2%, patient does have had New disease explained to patient that this could cause A1c not to be as accurate due to low hemoglobin. Discussed with patient hyperglycemia happening after last meal of the day, suggested to patient he reduce carbohydrate portion at supper. Patient also resumed Mounjaro 7.5 mg approximately 2 weeks ago, patient has follow-up appointment with provider in February 2024, recommended at that visit if his glucose still is running above target to discuss medication adjustments Patient able to insert sensor independently at home without issue.? Portions of this note were created using voice recognition software, please excuse any words or phrases that may have been misinterpreted. Patient Instructions: Patient will follow-up with family educator in 5 months Coding Level of Care Code Est Pt Level 1 (90417) Diagnoses Type 2 diabetes mellitus with diabetic neuropathy, without long-term current use of insulin E11.40 Diabetes mellitus type: type 2 Diabetes mellitus terminal block assembler insulin use: without terminal block assembler use
== END 2024-02-15 11:29 | disposition home or self-care (01) ==
PROVIDERS: PCP Internal Medicine; Visit Provider Registered Nurse Diabetes Educator
DX: E11.40 Type 2 diabetes mellitus with diabetic neuropathy, unspecified (principal)

== ENCOUNTER 2024-02-15 10:57 | Outpatient (REF) | payer OTHER, SELFPAY ==
[2024-02-15 13:02] LABS: Hematocrit 30.1 % (42.0-52.0); Hemoglobin 9.2 g/dl (14.0-18.0); Mean Corpuscular HGB Conc 30.6 g/dl (31.0-36.0); Mean Corpuscular Hemoglobin 26.9 pg (27.0-33.0); Mean Platelet Volume 10.1 fL (9.4-12.4); Platelet Count 226 X10*3/uL (160-400); Red Blood Count 3.42 X10*6/uL (4.60-5.80); Red Cell Distribution Width 14.9 % (11.0-16.0); White Blood Count 10.6 X10*3/uL (4.8-10.8)
[2024-02-15 13:22] LABS: Appearance Urine Clear; Color Urine Yellow; Glucose Urine UA 250 mg/dL (Negative); Leukocyte Esterase Urine Negative (Negative); Nitrite Urine Negative (Negative); Specific Gravity - Urine 1.015 (1.005-1.025); UMIC TRIGGER UA YES; Urine Blood Small (1+) (Negative); Urine Ketones Negative (Negative); Urine Protein >=1000 (4+) mg/dL (Neg-Trace)
[2024-02-15 13:39] LABS: Cholesterol 146 mg/dL (<200); Glucose Random 105 mg/dL (60-115); HDL Cholesterol 34 mg/dL (>40); LDL Cholesterol Calculated 91 mg/dL (<100); Triglycerides 108 mg/dL (<150)
[2024-02-15 13:40] LABS: Parathyroid Hormone Intact 316.4 pg/mL (8.7-77.1)
[2024-02-15 13:45] LABS: Bacteria Urine None Seen (None Seen); Hyaline Casts Urine 0-2 /LPF (0-2); Squamous Epithelial Cell Urine 0-2 /HPF (0-2); WBC Urine 0-5 /HPF (0-5)
[2024-02-15 14:07] LABS: Anion Gap 14 (12-20); Blood Urea Nitrogen 69 mg/dL (9-16); Calcium 7.5 mg/dL (8.4-10.2); Carbon Dioxide 14 mmol/L (22-29); Chloride 121 mmol/L (96-108); Estimated Glomerular Filt Rate 9; Potassium 6.1 mmol/L (3.3-5.1); Sodium 143 mmol/L (135-145)
== END 2024-02-15 10:58 | disposition home or self-care (01) ==
LOC: HO.LAB 10:57
PROVIDERS: Absent Provider Internal Medicine Hypertension Specialist; PCP Internal Medicine; Visit Provider Registered Nurse Diabetes Educator
DX: I95.9 Hypotension, unspecified (principal); E11.29 Type 2 diabetes mellitus with other diabetic kidney complication; R80.9 Proteinuria, unspecified; E11.22 Type 2 diabetes mellitus with diabetic chronic kidney disease; N18.4 Chronic kidney disease, stage 4 (severe); E11.40 Type 2 diabetes mellitus with diabetic neuropathy, unspecified; E78.2 Mixed hyperlipidemia
CPT/HCPCS: 36415; 80048; 80061; 81001; 83970; 85027; 99211; 99212

== ENCOUNTER 2024-02-15 11:34 | Outpatient (AMB) | payer OTHER, SELFPAY ==
--- NOTE | 2024-02-15 11:45 | HO.NEPHOV_ITS ---
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 ) Accompanied by: Daughter Allergies No Known Allergies Allergy (Verified 02/15/24 11:47) Medication List - Last Reconciled 02/15/24 by Cole Del Valle MD aspirin 81 mg PO DAILY atorvastatin 40 mg PO QPM [bed rail As directed] carvedilol 25 mg PO BID Dexcom G6 Sensor (blood-glucose sensor) As directed change every 10 days LEE NS Dexcom G6 Transmitter (blood-glucose transmitter) As directed NS duloxetine 60 mg PO DAILY fluticasone propionate 50 mcg/actuation 1 spray intranasal DAILY FreeStyle Lancets (lancets) USE TO TEST FINGER STICK BLOOD SUGAR 3 (THREE) TIMES A DAY NS furosemide mg PO TID gabapentin 300 mg PO Q8H 30 days Grab bar one long bar 33-36 inches for inside the shower, one regular bar 18-24 inches for outside the shower [Hand rails As directed] hydralazine 10 mg PO TID insulin aspart U-100 (Novolog FlexPen U-100 Insulin aspart) subcutaneously 3 times a day; 8-10 units subcutaneous before breakfast and dinner, 14 units before lunch insulin glargine (Lantus Solostar U-100 Insulin) 24 units (0.24 mL) subcut QPM insulin syringe-needle U-100 (Comfort EZ Insulin Syringe) USE WITH insulin two (2) times a day ipratropium-albuterol 0.5 mg-3 mg(2.5 mg base)/3 mL 3 mL inhalation Q6-8H PRN 30 days ipratropium-albuterol 0.5 mg-3 mg(2.5 mg base)/3 mL 3 mL inhalation QID PRN isosorbide mononitrate ER 30 mg PO DAILY loratadine 10 mg PO DAILY nicotine 1 patch transdermal DAILY 28 days nortriptyline 50 mg PO BEDTIME omega-3 acid ethyl esters (Lovaza) 2 caps PO BID [overbed table with wheels As directed] pen needle, diabetic (Comfort EZ Pen [place]) USE DIRECTED 3 (THREE) TIMES A DAY prazosin 1 mg PO BEDTIME [shower bar As directed] [Shower seat As directed] Symbicort 160-4.5 mcg/actuation (budesonide-formoterol) 2 puffs PO Q12H NS tirzepatide (Mounjaro) 7.5 mg (0.5 mL) subcut QWEEK [wheelchair As directed] [wheelchair As directed] [wheelchair ramp Pt is wheelchair bound, needs a ramp to exit the front door and 6 steps to get to the sidewalk] HPI Comments Details: Pt is here for follow up of CKD and proteinuria. Banking Specialist utilized. Pt here with daughter. unfortunately pt was dizzy and hypotensive on arrival. he states recent blood sugar was 115. pt felt hot and was unable to complete visit, states he feels very dizzy and tired. he states he took all of his blood pressure medication this a.m. and ate a piece of whole wheat toast this a.m. he states he has been drinking minimal fluids as he believed he was told to minimize fluids when he left the hospital on 10/31 (was admitted with fluid overload and had acute CHF exacerbation). 02/05/24 Epistaxis on and off A1C is down to 6.5 Doing better [facility] Medical History (Updated 02/15/24 @ 11:54 by Cole Del Valle MD) Intermittent lightheadedness History of CVA with residual deficit Left cervical lymphadenopathy Obesity (BMI 30-39.9) Normocytic normochromic anemia COPD (chronic obstructive pulmonary disease) Cigarette smoker Smoker unmotivated to quit RODGER (obstructive sleep apnea) Generalized anxiety disorder 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 Essential hypertension Allergic rhinitis Mixed dyslipidemia Amputation, toe, traumatic Vitamin D deficiency Diabetes mellitus with neuropathy Diabetes mellitus with hyperglycemia, with long-term current use of insulin Osteoarthritis Fibromyalgia Diabetic peripheral angiopathy Spondylosis of cervical spine Diabetic neurogenic arthropathy Surgical History History of foot surgery Family History Father HTN (hypertension) Diabetes Mental health disorder Mother HTN (hypertension) Brother Stroke Social History Household Members: Spouse and Children Housing: Apartment Alcohol intake: never Patient Tobacco Use Status: Current someday Tobacco user Cigarettes Per Day: 3 Years Smoked: 36 e-Cigarette/Vaping Use: Never Used Current occupational status: disabled Cognitive needs: No Hearing needs: No Vision needs: No Physical Exam Comfortable Neck supple no JVD. Lungs entry equal no rales. Heart S1-S2 heard no gallop or rub. Abdomen soft nontender. Neuro alert awake oriented. No asterixis. Extremities no edema. Results Reviewed Nephrology Results: No Data to Display Assessment & Plan Assessment & Plan (1) Proteinuria due to type 2 diabetes mellitus: Code(s): E11.29 - Type 2 diabetes mellitus with other diabetic kidney complication; R80.9 - Proteinuria, unspecified Category: Medical (2) Hypotension: Code(s): I95.9 - Hypotension, unspecified Plan: Acute advised ED given symptomatic today, needs fluids. (3) CKD (chronic kidney disease) stage 4, GFR 15-29 ml/min: Code(s): N18.4 - Chronic kidney disease, stage 4 (severe) Category: Medical Plan Middle-aged man with obesity hypertension diabetes mellitus with CKD. Nephrotic range proteinuria most likely due to underlying diabetic nephropathy. HARRY likely secondary to cardiorenal syndrome Advanced CKD approaching ESRD No absolute indication for dialysis yet Discussed dialysis options Will refer for dialysis education BP better controlled Avoid hypotension Will screen for anemia/SHPT Orders: Orders Basic Metabolic Panel Today N18.31 - Chronic kidney disease, stage 3a Complete Blood Count no Diff Today N18.31 - Chronic kidney disease, stage 3a Parathyroid Hormone Intact Today N18.31 - Chronic kidney disease, stage 3a Coding Level of Care Code Est Pt Level 4 (25176) Complex EM visit Add On G2211 Diagnoses Proteinuria due to type 2 diabetes mellitus E11.29; R80.9 Hypotension I95.9 CKD (chronic kidney disease) stage 4, GFR 15-29 ml/min N18.4
[2024-02-15 11:51] VITALS: BP 132/80; PULSE 80; O2SAT 96; BMI 33.1
== END 2024-02-15 12:02 | disposition home or self-care (01) ==
PROVIDERS: PCP Internal Medicine; Visit Provider Internal Medicine Hypertension Specialist
DX: E11.22 Type 2 diabetes mellitus with diabetic chronic kidney disease (principal); N18.4 Chronic kidney disease, stage 4 (severe); R80.9 Proteinuria, unspecified; I95.9 Hypotension, unspecified
CPT/HCPCS: 99214; G2211

== ENCOUNTER 2024-02-23 11:00 | Outpatient (AMB) | payer OTHER, SELFPAY ==
--- NOTE | 2024-02-23 11:16 | MHC.OFFVIS ---
Vital Signs 02/23/24 11:44 Height 6 ft 2 in Weight 293 lb BMI 37.6 BP 130/72 Blood Pressure Location Lt brachial Position Sitting Pulse 78 Pulse Source Pulse Oximeter Pulse Oximetry (%) 97 Oxygen Delivery Method Room Air Intake Visit Reasons: Obstructive sleep apnea Intake Note: pt is here for follow up and states his neb medication and his pump (symbicort) do not seem to be doing the job anymore, he feels increased short of breath. Allergies No Known Allergies Allergy (Verified 02/23/24 12:15) Medication List - Last Reconciled 02/23/24 by Edmundo Hammond MD aspirin 81 mg PO DAILY atorvastatin 40 mg PO QPM [bed rail As directed] carvedilol 25 mg PO BID Dexcom G6 Sensor (blood-glucose sensor) As directed change every 10 days LEE NS Dexcom G6 Transmitter (blood-glucose transmitter) As directed NS duloxetine 60 mg PO DAILY fluticasone propionate 50 mcg/actuation 1 spray intranasal DAILY FreeStyle Lancets (lancets) USE TO TEST FINGER STICK BLOOD SUGAR 3 (THREE) TIMES A DAY NS furosemide mg PO TID gabapentin 300 mg PO Q8H 30 days Grab bar one long bar 33-36 inches for inside the shower, one regular bar 18-24 inches for outside the shower [Hand rails As directed] hydralazine 10 mg PO TID insulin aspart U-100 (Novolog FlexPen U-100 Insulin aspart) subcutaneously 3 times a day; 8-10 units subcutaneous before breakfast and dinner, 14 units before lunch insulin glargine (Lantus Solostar U-100 Insulin) 24 units (0.24 mL) subcut QPM insulin syringe-needle U-100 (Comfort EZ Insulin Syringe) USE WITH insulin two (2) times a day ipratropium-albuterol 0.5 mg-3 mg(2.5 mg base)/3 mL 3 mL inhalation Q6-8H PRN 30 days ipratropium-albuterol 0.5 mg-3 mg(2.5 mg base)/3 mL 3 mL inhalation QID PRN isosorbide mononitrate ER 30 mg PO DAILY loratadine 10 mg PO DAILY nicotine 1 patch transdermal DAILY 28 days nortriptyline 50 mg PO BEDTIME omega-3 acid ethyl esters (Lovaza) 2 caps PO BID [overbed table with wheels As directed] pen needle, diabetic (Comfort EZ Pen [place]) USE DIRECTED 3 (THREE) TIMES A DAY prazosin 1 mg PO BEDTIME [shower bar As directed] [Shower seat As directed] sodium zirconium cyclosilicate (Lokelma) 10 grams PO ONCE Symbicort 160-4.5 mcg/actuation (budesonide-formoterol) 2 puffs PO Q12H NS tirzepatide (Mounjaro) 7.5 mg (0.5 mL) subcut QWEEK [wheelchair As directed] [wheelchair As directed] [wheelchair ramp Pt is wheelchair bound, needs a ramp to exit the front door and 6 steps to get to the sidewalk] Do you need a note to return to daycare/school/sports/work: No HPI HPI Obstructive sleep apnea: Details: [age] years old gentleman with the severe obesity and diagnosis of obstructive sleep apnea, who could not use his CPAP and his device was taken away. Continues to have difficulty in sleeping at night, with frequent awakenings. And continues to be tired and sleepy during the daytime. He was supposed to have sleep lab based polysomnogram study. Due to communication issues he has not been able to go to the sleep lab. Continues to have the same symptoms. In addition he complains of some mucus in his throat all the time with some wheezing. And thinks that Symbicort is not helping. However he does have the nebulizer unit at home and is supposed to use the updraft with ipratropium and albuterol solution 3 times a day. He is not using it regularly. [facility] Medical History Intermittent lightheadedness History of CVA with residual deficit Left cervical lymphadenopathy Obesity (BMI 30-39.9) Normocytic normochromic anemia COPD (chronic obstructive pulmonary disease) Cigarette smoker Smoker unmotivated to quit RODGER (obstructive sleep apnea) Generalized anxiety disorder 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 Essential hypertension Allergic rhinitis Mixed dyslipidemia Amputation, toe, traumatic Vitamin D deficiency Diabetes mellitus with neuropathy Diabetes mellitus with hyperglycemia, with long-term current use of insulin Osteoarthritis Fibromyalgia Diabetic peripheral angiopathy Spondylosis of cervical spine Diabetic neurogenic arthropathy Surgical History History of foot surgery Family History Father HTN (hypertension) Diabetes Mental health disorder Mother HTN (hypertension) Brother Stroke Social History Household Members: Spouse and Children Housing: Apartment Alcohol intake: never Patient Tobacco Use Status: Current someday Tobacco user Cigarettes Per Day: 3 Years Smoked: 36 e-Cigarette/Vaping Use: Never Used Current occupational status: disabled Cognitive needs: No Hearing needs: No Vision needs: No Review of Systems Const All systems reviewed & are unremarkable except as noted in HPI and below Eyes Reports no additional complaints ENT Reports no additional complaints Card Denies chest pain at rest, Denies irregular heart rhythm and Denies leg edema Resp Reports as per HPI GI Reports no additional complaints Reports no additional complaints Musc Reports abnormal gait (He has weakness of both lower extremities and is non ambulatory, uses wheel), Reports back pain and Reports muscle weakness Skin/Breast Reports system reviewed and no additional complaints, except as documented Neuro Reports abnormal gait (He has weakness of both lower extremities and is non ambulatory, uses wheel) Psych Reports no additional complaints Endo Reports other (Being treated for diabetes mellitus) Aller/Immun Reports no additional complaints Physical Exam Vital Signs: Last Vital Signs Pulse 78 02/23/24 11:44 BP 130/72 02/23/24 11:44 Pulse Ox 97 02/23/24 11:44 Oxygen Delivery Method Room Air 02/23/24 11:44 BMI result Body Mass Index 37.6 The patient does appear to be moderately obese with a round face. He is sitting in the wheelchair but able to stand and walk, he appears to be comfortable. Const General: comfortable, no acute distress, alert and awake Orientation/consciousness: patient oriented x3 HEENT Head: Yes normal to inspection General nose exam: No nasal polyps present and No nasal discharge present Face and sinus: Yes sinuses nontender Mouth: oropharynx abnormals (Oropharynx is narrow and crowded, Mallampati class 4) Throat: Yes posterior oropharynx normal Eyes General: appearance normal, both eyes and all related structures Neck Neck: Yes normal visual inspection, Yes no lymphadenopathy, Yes trachea midline and Yes other (Neck circumference 18 in) Thyroid: Thyroid normal Chest Chest palpation & inspection: normal inspection of the chest, normal palpation of entire chest wall and no tenderness Resp Other: Percussion note is resonant, breath sounds are quite distant especially over the basilar areas. He does not have any he crepitations or wheezes at this time . Cardio Palpation: normal PMI Rate: regular rate Rhythm: regular rhythm Heart sounds: no gallops and no murmurs GI Palpation (GI): Soft to palpation, nontender, No hepatosplenomegaly present and no masses Auscultation: normal bowel sounds Back/Spine/Pelvis Thoracic/Lumbar Spine: thoraco-lumbar ROM limited Skin General skin exam: no rashes or lesions noted Neuro General: patient oriented x3 and No gait normal (Patient is non ambulatory, uses wheelchair) Cranial nerves: Yes CN's II-XII intact bilaterally Extrem Other: Both legs are very thin and weak, peripheral pulses are not palpable. General: Yes no clubbing, cyanosis or edema (Right foot shows previous amputation of the toes.) and Yes no calf tenderness Psych Appearance: grossly normal and well kempt Speech and movement: Normal speech and movement present Assessment & Plan Assessment & Plan (1) Obesity (BMI 30-39.9): Comment: HE IS GROSSLY OBESE, HAS ROUND FACE VERY OBESE NECK AND ALSO CROWDED UPPER AIRWAYS DIFFICULT FOR HIM TO LOSE WEIGHT. Code(s): E66.9 - Obesity, unspecified Category: Medical Plan: NOTED ABOVE HE HAS VERY LITTLE POTENTIAL TO LOSE WEIGHT. HOWEVER I NOTICE THAT HE HAS BEEN STARTED ON TIRZEPATIDE , INJECTION THERAPY AND THIS MAY HELP IN CONTROLLING THE WEIGHT. (2) COPD (chronic obstructive pulmonary disease): Comment: HE HAS COMBINATION OF BRONCHIAL ASTHMA/COPD, WELL CONTROLLED AT PRESENT. HIS FEELING OF MUCUS BUILDING IN THE THROAT, IS SECONDARY TO NARROW UPPER AIRWAYS AND ALSO SMOKING. Code(s): J44.9 - Chronic obstructive pulmonary disease, unspecified Category: Medical Plan: EXPLAINED TO HIM THAT HE HAS LOSE WEIGHT NEXT HE SHOULD ELIMINATE SMOKING COMPLETELY. DOES NOT SEEM TO BE MOTIVATED ENOUGH TO QUIT SMOKING COMPLETELY. CONTINUE USING SYMBICORT 160-4.52 PUFFS B.I.D.. USE IPRATROPIUM-ALBUTEROL SOLUTION IN THE NEBULIZER 3 TIMES A DAY. (3) Smoker unmotivated to quit: Comment: HE IS CUTTING DOWN ON HIS SMOKING CURRENTLY HE IS SMOKING 3 CIGARETTES A DAY BUT HAS NOT BEEN ABLE TO QUIT COMPLETELY. Code(s): F17.200 - Nicotine dependence, unspecified, uncomplicated Category: Social Hx Plan: AGAIN DISCUSSED WITH HIM ABOUT SMOKING AND THE BEST THING IS TO QUIT COMPLETELY (4) RODGER (obstructive sleep apnea): Comment: HE DOES HAVE PAST HISTORY OF OBSTRUCTIVE SLEEP APNEA, HE HAD STOPPED USING THE CPAP. HIS LAST STUDY IN DECEMBER 2022 SHOWED ONLY MILD OBSTRUCTIVE SLEEP APNEA. DURING A RECENT HOSPITALIZATION, HE WAS TREATED WITH CPAP AND HE DID WELL. HE WANTS TO START USING CPAP AGAIN. Code(s): G47.33 - Obstructive sleep apnea (adult) (pediatric) Category: Medical Plan: NEED PAP TITRATION STUDY IN THE SLEEP LAB. WE WILL TRY TO SCHEDULE THIS STUDY ONCE AGAIN, Coding Level of Care Code Est Pt Level 3 (86058) Diagnoses Obesity (BMI 30-39.9) E66.9 COPD (chronic obstructive pulmonary disease) J44.9 Smoker unmotivated to quit F17.200 RODGER (obstructive sleep apnea) G47.33
[2024-02-23 11:44] VITALS: BP 130/72; PULSE 78; O2SAT 97; BMI 37.6
== END 2024-02-23 11:52 | disposition home or self-care (01) ==
PROVIDERS: PCP Internal Medicine; Visit Provider Internal Medicine
DX: E66.9 Obesity, unspecified (principal); J44.9 Chronic obstructive pulmonary disease, unspecified; F17.200 Nicotine dependence, unspecified, uncomplicated; G47.33 Obstructive sleep apnea (adult) (pediatric)
CPT/HCPCS: 99213

== ENCOUNTER 2024-02-23 12:01 | Outpatient (REF) | payer OTHER, SELFPAY ==
[2024-02-23 13:15] LABS: Anion Gap 10 (12-20); Blood Urea Nitrogen 53 mg/dL (9-16); Calcium 7.1 mg/dL (8.4-10.2); Carbon Dioxide 18 mmol/L (22-29); Chloride 118 mmol/L (96-108); Glucose Random 150 mg/dL (60-115); Potassium 5.2 mmol/L (3.3-5.1); Sodium 141 mmol/L (135-145)
[2024-02-23 14:14] LABS: Estimated Glomerular Filt Rate 10
== END 2024-02-23 12:02 | disposition home or self-care (01) ==
LOC: HO.LAB 12:01
PROVIDERS: PCP Internal Medicine; Visit Provider Internal Medicine Hypertension Specialist
DX: N18.4 Chronic kidney disease, stage 4 (severe) (principal); G47.33 Obstructive sleep apnea (adult) (pediatric); E66.9 Obesity, unspecified; J44.9 Chronic obstructive pulmonary disease, unspecified; F17.210 Nicotine dependence, cigarettes, uncomplicated
CPT/HCPCS: 36415; 80048; 99212

== ENCOUNTER 2024-03-01 12:02 | Outpatient (AMB) | payer OTHER, SELFPAY ==
--- NOTE | 2024-03-01 12:02 | HO.NEPHOV_ITS ---
Vital Signs 03/01/24 12:03 Height 6 ft 2 in BP 152/82 H Blood Pressure Location Rt brachial Position Sitting Pulse 75 Pulse Source Pulse Oximeter Pulse Oximetry (%) 95 Oxygen Delivery Method Room Air Intake Visit Reasons: Per / ARVIN Composition Siding Worker Required: No Accompanied by: Daughter Allergies No Known Allergies Allergy (Verified 03/01/24 12:05) Medication List - Last Reconciled 03/01/24 by Cole Del Valle MD amlodipine 10 mg PO DAILY aspirin 81 mg PO DAILY atorvastatin 40 mg PO QPM [bed rail As directed] carvedilol 25 mg PO BID Dexcom G6 Sensor (blood-glucose sensor) As directed change every 10 days LEE NS Dexcom G6 Transmitter (blood-glucose transmitter) As directed NS duloxetine 60 mg PO DAILY fluticasone propionate 50 mcg/actuation 1 spray intranasal DAILY FreeStyle Lancets (lancets) USE TO TEST FINGER STICK BLOOD SUGAR 3 (THREE) TIMES A DAY NS furosemide 80 mg PO DAILY gabapentin 300 mg PO Q8H 30 days Grab bar one long bar 33-36 inches for inside the shower, one regular bar 18-24 inches for outside the shower [Hand rails As directed] hydralazine 10 mg PO TID insulin aspart U-100 (Novolog FlexPen U-100 Insulin aspart) subcutaneously 3 times a day; 8-10 units subcutaneous before breakfast and dinner, 14 units before lunch insulin glargine (Lantus Solostar U-100 Insulin) 24 units (0.24 mL) subcut QPM insulin syringe-needle U-100 (Comfort EZ Insulin Syringe) USE WITH insulin two (2) times a day ipratropium-albuterol 0.5 mg-3 mg(2.5 mg base)/3 mL 3 mL inhalation Q6-8H PRN 30 days ipratropium-albuterol 0.5 mg-3 mg(2.5 mg base)/3 mL 3 mL inhalation QID PRN isosorbide mononitrate ER 30 mg PO DAILY loratadine 10 mg PO DAILY nicotine 1 patch transdermal DAILY 28 days nortriptyline 50 mg PO BEDTIME omega-3 acid ethyl esters (Lovaza) 2 caps PO BID [overbed table with wheels As directed] pen needle, diabetic (Comfort EZ Pen [place]) USE DIRECTED 3 (THREE) TIMES A DAY prazosin 1 mg PO BEDTIME [shower bar As directed] [Shower seat As directed] sodium zirconium cyclosilicate (Lokelma) 10 grams PO DAILY Symbicort 160-4.5 mcg/actuation (budesonide-formoterol) 2 puffs PO Q12H NS tirzepatide (Mounjaro) 7.5 mg (0.5 mL) subcut QWEEK [wheelchair As directed] [wheelchair As directed] [wheelchair ramp Pt is wheelchair bound, needs a ramp to exit the front door and 6 steps to get to the sidewalk] HPI Comments Details: Pt is here for follow up of CKD and proteinuria. Composition Siding Worker utilized. Pt here with daughter. unfortunately pt was dizzy and hypotensive on arrival. he states recent blood sugar was 115. pt felt hot and was unable to complete visit, states he feels very dizzy and tired. he states he took all of his blood pressure medication this a.m. and ate a piece of whole wheat toast this a.m. he states he has been drinking minimal fluids as he believed he was told to minimize fluids when he left the hospital on 10/31 (was admitted with fluid overload and had acute CHF exacerbation). 02/05/24 Epistaxis on and off A1C is down to 6.5 Doing better 03/01/24 Feels tired and Sleepy Also has shortness of breath on and off Not on diuretics [facility] Medical History Intermittent lightheadedness History of CVA with residual deficit Left cervical lymphadenopathy Obesity (BMI 30-39.9) Normocytic normochromic anemia COPD (chronic obstructive pulmonary disease) Cigarette smoker Smoker unmotivated to quit RODGER (obstructive sleep apnea) Generalized anxiety disorder 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 Essential hypertension Allergic rhinitis Mixed dyslipidemia Amputation, toe, traumatic Vitamin D deficiency Diabetes mellitus with neuropathy Diabetes mellitus with hyperglycemia, with long-term current use of insulin Osteoarthritis Fibromyalgia Diabetic peripheral angiopathy Spondylosis of cervical spine Diabetic neurogenic arthropathy Surgical History History of foot surgery Family History Father HTN (hypertension) Diabetes Mental health disorder Mother HTN (hypertension) Brother Stroke Social History Household Members: Spouse and Children Housing: Apartment Alcohol intake: never Patient Tobacco Use Status: Current someday Tobacco user Cigarettes Per Day: 3 Years Smoked: 36 e-Cigarette/Vaping Use: Never Used Current occupational status: disabled Cognitive needs: No Hearing needs: No Vision needs: No Physical Exam Vital Signs: Last Vital Signs Pulse 75 03/01/24 12:03 BP 152/82 H 03/01/24 12:03 Pulse Ox 95 03/01/24 12:03 Oxygen Delivery Method Room Air 03/01/24 12:03 Neck Neck: Yes supple Resp Auscultation: clear to auscultation bilaterally Cardio Palpation: no palpable S3 Heart sounds: no rubs GI Palpation (GI): Soft to palpation Auscultation: normal bowel sounds Neuro Motor exam (neuro): no asterixis Results Reviewed Nephrology Results: Hgb 9.2 g/dl (14.0-18.0) L 02/15/24 WBC 10.6 X10*3/uL (4.8-10.8) 02/15/24 Plt Count 226 X10*3/uL (160-400) 02/15/24 Sodium 141 mmol/L (135-145) 02/23/24 Potassium 5.2 mmol/L (3.3-5.1) H 02/23/24 Chloride 118 mmol/L (96-108) H 02/23/24 Carbon Dioxide 18 mmol/L (22-29) L 02/23/24 BUN 53 mg/dL (9-16) H 02/23/24 Creatinine 5.96 mg/dL (0.5-1.4) H* 02/23/24 Calcium 7.1 mg/dL (8.4-10.2) L 02/23/24 PTH Intact 316.4 pg/mL (8.7-77.1) H 02/15/24 Urine Protein >=1000 (4+) mg/dL (Neg-Trace) H 4 Assessment & Plan Assessment & Plan (1) Proteinuria due to type 2 diabetes mellitus: Code(s): E11.29 - Type 2 diabetes mellitus with other diabetic kidney complication; R80.9 - Proteinuria, unspecified Category: Medical (2) Hypotension: Code(s): I95.9 - Hypotension, unspecified Plan: Acute advised ED given symptomatic today, needs fluids. (3) CKD (chronic kidney disease) stage 4, GFR 15-29 ml/min: Code(s): N18.4 - Chronic kidney disease, stage 4 (severe) Category: Medical Plan Middle-aged man with obesity hypertension diabetes mellitus with CKD. Nephrotic range proteinuria most likely due to underlying diabetic nephropathy. HARRY likely secondary to cardiorenal syndrome Advanced CKD approaching ESRD No absolute indication for dialysis yet Discussed dialysis options Will refer for dialysis education Has good family support They are willing to try PD BP better controlled but sub optimal Addition of LAsix should help Avoid hypotension Anemia Will arrange for Epogen Hyperkalemia Add Lokelma daily Refer for transplant evaluation Medications: Changed From sodium zirconium cyclosilicate (Lokelma) 10 grams PO ONCE To sodium zirconium cyclosilicate (Lokelma) 10 grams PO DAILY 11 ea 1RF From furosemide PO TID To furosemide 80 mg PO DAILY 30 tabs 0RF Coding Level of Care Code Est Pt Level 4 (50990) Complex EM visit Add On G2211 Diagnoses Proteinuria due to type 2 diabetes mellitus E11.29; R80.9 Hypotension I95.9 CKD (chronic kidney disease) stage 4, GFR 15-29 ml/min N18.4
[2024-03-01 12:03] VITALS: BP 152/82; PULSE 75; O2SAT 95
== END 2024-03-01 12:26 | disposition home or self-care (01) ==
PROVIDERS: PCP Internal Medicine; Visit Provider Internal Medicine Hypertension Specialist
DX: E11.29 Type 2 diabetes mellitus with other diabetic kidney complication (principal); R80.9 Proteinuria, unspecified; I95.9 Hypotension, unspecified; N18.4 Chronic kidney disease, stage 4 (severe)
CPT/HCPCS: 99214; G2211

== ENCOUNTER → 2024-03-01 12:02 | Outpatient (BNVA) | payer OTHER, SELFPAY | PROVIDERS: PCP Internal Medicine; Visit Provider Internal Medicine Hypertension Specialist | DX: E11.22 Type 2 diabetes mellitus with diabetic chronic kidney disease (principal); N18.4 Chronic kidney disease, stage 4 (severe); E11.29 Type 2 diabetes mellitus with other diabetic kidney complication; I95.9 Hypotension, unspecified; R80.9 Proteinuria, unspecified | CPT/HCPCS: 99212 ==

== ENCOUNTER → 2024-03-19 | Outpatient (BNV) | payer OTHER, SELFPAY | PROVIDERS: PCP Internal Medicine; Visit Provider Internal Medicine Hypertension Specialist | DX: N18.6 End stage renal disease (principal) | CPT/HCPCS: 90962 ==

== ENCOUNTER 2024-05-12 10:29 | Inpatient (IN) | payer OTHER, SELFPAY ==
[2024-05-12] VITALS (9 sets, daily range): BP systolic 84–167; BP diastolic 56–85; PULSE 80–109; RESP 16–22; TEMP 36.4–37.8; O2SAT 94–98; BMI 23.1
--- NOTE | ~2024-05-12 | XR_ITS ---
CLINICAL HISTORY: productive cough, fever 2 view chest x-ray Comparison: CR/SR - XR CHEST 2V - 10/01/23 16:20 EDT Findings: The lungs are clear. Heart size is normal. A right-sided dialysis catheter is present. No acute fracture. IMPRESSION: 1. No acute findings. This document has been electronically signed by: Alfredito Armenta MD on 05/12/2024 12:00:16
--- NOTE | ~2024-05-12 | XR_ITS ---
CLINICAL HISTORY: lateral foot infection. ? osteo 3 view right foot Comparison: None Findings: The patient is status post transmetatarsal amputation of the 1st through 4th digits. There is no evidence of osteomyelitis. No significant arthritic change or erosions. No ankle effusion. No radiopaque foreign body. IMPRESSION: The patient is status post transmetatarsal amputation of the 1st through 4th digits. There is no evidence of osteomyelitis. This document has been electronically signed by: Alfredito Armenta MD on 05/12/2024 12:00:21
--- NOTE | 2024-05-12 10:37 | ED.GENADULT ---
HPI - General Adult General Chief complaint: Fever Stated complaint: fever Time Seen by Provider: 05/12/24 11:05 Source: patient, family, RN notes reviewed, old records reviewed and deliverer outside Mode of arrival: ambulatory Limitations: language barrier History of Present Illness ED Provider: Alvin HPI narrative: 53-year-old male with past medical history significant for end-stage renal disease on dialysis, Thursday, Thursday, , Thursday followed by Dr. Del Valle, insulin-dependent diabetes, previous CVA, COPD not on oxygen, anxiety, hypertension, previous right toe amputation presenting for evaluation of fevers. Patient reports that he woke up this morning feeling unwell, he had a fever 100.8 at home and took Tylenol. He complains of right foot pain He has an area of redness to the right lateral foot which she reports his pain follow up, especially when he is walking on it He denies any cough, shortness of breath, abdominal pain, nausea, vomiting He does have some mild right lower back pain which she feels is related to favoring of the right foot. Denies any injury to the back or heavy lifting He still makes urine but denies any difficulty urinating He has a central catheter in his right upper chest and reports that he was due to start home hemodialysis today but did not go today. He confirms his last dialysis session was 2 days ago on Thursday. Related Data Home Medications ?Medication ?Instructions ?Recorded ?Confirmed amlodipine 10 mg tablet 10 mg PO DAILY 03/01/24 05/13/24 calcitriol 0.5 mcg capsule 1 mcg PO DIRECTED 05/12/24 05/13/24 carvedilol 12.5 mg tablet 12.5 mg PO BID 05/12/24 05/13/24 ergocalciferol (vitamin D2) 1,250 1,250 mcg PO SA 05/12/24 05/13/24 mcg (50,000 unit) capsule (Vitamin D2) gabapentin 100 mg capsule 100 mg PO DAILY 05/12/24 05/13/24 insulin aspart U-100 100 unit/mL 8 unit subcut TIDAC 05/12/24 05/13/24 (3 mL) subcutaneous pen insulin glargine 100 unit/mL (3 20 unit subcut BEDTIME 05/12/24 05/13/24 mL) subcutaneous pen (Lantus Solostar U-100 Insulin) isosorbide mononitrate 30 mg 60 mg PO DAILY 05/12/24 05/13/24 tablet,extended release 24 hr sodium zirconium cyclosilicate 10 10 g PO DAILY 05/12/24 05/13/24 gram oral powder packet (Lokelma) tirzepatide 7.5 mg/0.5 mL 7.5 mg subcut MO 05/12/24 05/13/24 subcutaneous pen injector (Maricruz) atorvastatin 40 mg tablet 40 mg PO BEDTIME 05/13/24 05/13/24 Previous Rx's ?Medication ?Instructions ?Recorded wheelchair #1 ea 07/09/20 insulin syringe-needle U-100 1 mL #100 ea 04/23/21 31 gauge x 16 (Comfort EZ Insulin Syringe) bed rail #1 ea 03/10/22 overbed table with wheels #1 ea 03/10/22 shower bar #2 ea 03/10/22 wheelchair ramp #1 ea 03/10/22 Hand rails #3 ea 06/29/23 Shower seat #1 ea 06/29/23 Grab bar #2 ea 07/03/23 Symbicort 160 mcg-4.5 2 puff PO Q12H #10.2 grams 10/26/23 mcg/actuation HFA aerosol inhaler (budesonide-formoterol) ipratropium 0.5 mg-albuterol 3 mg 3 ml inhalation Q6-8H PRN SEVERE 11/03/23 (2.5 mg base)/3 mL nebulization copd wheezing 30 days #360 mL soln wheelchair #1 ea 11/03/23 Dexcom G6 Sensor (blood-glucose #9 ea 11/19/23 sensor) pen needle, diabetic 31 gauge x #1,200 ea 12/02/23 5/16 (Comfort EZ Pen Melcroft) FreeStyle Lancets 28 gauge #100 ea 01/19/24 (lancets) omega-3 acid ethyl esters 1 gram 2 cap PO BID #360 caps 01/19/24 capsule (Lovaza) Dexcom G6 Transmitter #1 ea 02/16/24 (blood-glucose transmitter) furosemide 80 mg tablet 80 mg PO DAILY #30 tabs 03/01/24 hydralazine 10 mg tablet 10 mg PO TID #90 tabs 04/12/24 nicotine 14 mg/24 hr daily 1 patch transdermal DAILY QUIT 04/12/24 transdermal patch SMOKING 28 days #28 ea aspirin 81 mg tablet,delayed 81 mg PO DAILY #90 tabs 04/14/24 release Allergies Allergy/AdvReac Type Severity Reaction Status Date / Time No Known Allergies Allergy Verified 05/12/24 10:45 Review of Systems Constitutional: Constitutional: Reports body ache(s), Reports chills, Reports fever(s) and Denies headache(s) ENT: Denies headache(s) Cardiovascular: Cardiovascular: Denies chest pain and Denies dyspnea Respiratory: Respiratory: Denies cough and Denies dyspnea Gastrointestinal: Gastrointestinal: Denies abdominal pain, Denies nausea and Denies vomiting Musculoskeletal: Musculoskeletal: Reports back pain, Reports deformity (Previous right toe amputation), Reports arthralgias and Reports joint swelling Integumentary/Breasts: Skin/Breast: Reports erythema and Reports rash Neurologic: Denies headache(s) [facility] Past Medical History Medical History (Updated 05/13/24 @ 15:52 by Vero Orozco) Cellulitis of right foot Intermittent lightheadedness History of CVA with residual deficit Left cervical lymphadenopathy Obesity (BMI 30-39.9) Normocytic normochromic anemia COPD (chronic obstructive pulmonary disease) Cigarette smoker Smoker unmotivated to quit RODGER (obstructive sleep apnea) Generalized anxiety disorder 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 Essential hypertension Allergic rhinitis Mixed dyslipidemia Amputation, toe, traumatic Vitamin D deficiency Diabetes mellitus with neuropathy Diabetes mellitus with hyperglycemia, with long-term current use of insulin Osteoarthritis Fibromyalgia Diabetic peripheral angiopathy Spondylosis of cervical spine Diabetic neurogenic arthropathy Surgical History History of foot surgery Family History Family History Father HTN (hypertension) Diabetes Mental health disorder Mother HTN (hypertension) Brother Stroke Social History Social History Household Members: Spouse Housing: House Do you presently have visiting nurse or other home services: No Alcohol intake: never Patient Tobacco Use Status: Former Tobacco user Cigarette Packs Per Day: 1 Cigarettes Per Day: 20.0 Years Smoked: 35 e-Cigarette/Vaping Use: Never Used Second Hand Smoke Exposure: No Current occupational status: disabled Cognitive needs: No Hearing needs: No Vision needs: No Physical Exam ED Vital Signs: Vital Signs - 24 hr 05/12/24 10:33 05/12/24 11:17 05/12/24 11:53 Temperature 99.3 F 98.3 F 97.6 F Pulse Rate 98 91 83 Respiratory Rate 18 16 19 Blood Pressure 84/56 L 109/70 130/69 Pulse Oximetry 97 94 98 Oxygen Delivery Method Room Air Room Air Room Air 05/12/24 12:43 05/12/24 13:27 05/12/24 13:52 Temperature 98.6 F 98.4 F Pulse Rate 80 90 Respiratory Rate 16 18 21 H Blood Pressure 133/76 146/80 H Pulse Oximetry 96 95 Oxygen Delivery Method Room Air Room Air BMI result Body Mass Index 23.1 Const General: healthy appearing, comfortable, no acute distress, alert and awake Nutritional Appearance: well nourished Orientation/consciousness: patient oriented x3 HENMT Head: Yes normocephalic and Yes atraumatic Eyes Eyelids: Yes eyelids normal Conjunctivae: conjunctivae normal Sclerae: sclerae normal Corneas: corneas normal Pupils: Equal, round and reactive pupils present EOM: EOMs intact bilaterally Neck Neck: Yes full ROM Resp Effort & Inspection: normal respiratory effort, able to speak in complete sentences, no audible wheezes and not labored Auscultation: clear to auscultation bilaterally Cardio Rate: regular rate Rhythm: regular rhythm GI Inspection: No distended Palpation (GI): Soft to palpation, not firm, nontender, no guarding and not rigid Back/Spine/Pelvis Other: No rashes or wounds to the thoracic or lumbar spine Skin General skin exam: elasticity normal Neuro General: patient oriented x3 Cranial nerves: Yes Equal, round and reactive pupils present and Yes Bilaterally intact EOM present Cognition (Neuro): normal cognition Extrem Other: The patient has deformity to the right toes, 1. Through 4. He has amputation at approximately the distal phalanx with the exception of the 2nd toe which is middle way through the middle phalanx. He has a small open wound in between the 2nd and 3rd toes with minimal purulent drainage. No significant edema or erythema around this area. The right lateral foot has an area of erythema, about 4 cm in diameter with tenderness to palpation. No streaking lymphedema. No open wounds in this area. no calf tenderness Course Course Course Narrative: This is a rapid medical exam performed by Cosme Bhakta NP: Additional HPI, ROS, PE not included below will be deferred to primary provider. Patient is a 53-year-old Tajik speaking male with history of CKD on PD, CVA, anemia, COPD, smoking, RODGER, right toe amputation, HTN, DM with neuropathy, fibromyalgia presenting to the ED with complaint of fever, productive cough since yesterday. Took Tylenol [employer]. No known sick contacts. Also reports wound to right foot, right buttock/hip. Hypotensive in triage 84/56. Plan: charge account authorizer notified, labs including cxs, EKG, viral swab, CXR Reevaluation(s) Reevaluation #1: Discussed with Dr Virk who agrees the patient does not require emergent dialysis, he will be able to see the patient and help his out a dialysis if necessary while admitted. He gives us permission to have a dialysis nurse draw a blood culture off over the Port-A-Cath line. Time: 15:11 Medications Administered Generic Name Dose Route Start Last Admin Trade Name Freq PRN Reason Stop Dose Admin Acetaminophen 650 mg 05/12/24 16:28 05/13/24 18:14 Acetaminophen 325 Mg Tablet PO 650 mg Q6H PRN Administration Pain, Mild 1-3,fever,headache Amlodipine Besylate 10 mg 05/13/24 09:00 05/13/24 09:36 Amlodipine Besylate 10 Mg Tablet PO 10 mg DAILY GILBERT Administration Protocol Aspirin 81 mg 05/13/24 09:00 05/13/24 10:10 Aspirin 81 Mg Tab.Chew PO 81 mg DAILY GILBERT Administration Atorvastatin Calcium 40 mg 05/12/24 21:15 05/12/24 22:43 Atorvastatin Calcium 40 Mg Tablet PO 40 mg BEDTIME GILBERT Administration Calcitriol 1 mcg 05/13/24 12:23 05/13/24 17:47 Calcitriol 0.25 Mcg Capsule PO 1 mcg [id number] GILBERT Administration Fluticasone/Vilanterol 1 puff 05/13/24 12:30 05/13/24 14:41 Fluticasone/Vilanterol 200/25 Blst.W.Dev INHALE Not Given RDAILY [facility] Heparin Sodium (Porcine) 5,000 unit 05/12/24 23:00 05/13/24 17:48 Heparin Sodium,Porcine 5,000 Unit/Ml Vial SUBCUT 5,000 unit Q8H [facility] Administration Heparin Sodium (Porcine) 5,000 unit 05/13/24 16:45 05/13/24 17:15 Heparin Sodium,Porcine 5,000 Unit/Ml Vial INTRACATH Not Given [id number] [facility] Hydralazine HCl 10 mg 05/13/24 09:00 05/13/24 17:47 Hydralazine Hcl 10 Mg Tablet PO 10 mg TID [facility] Administration Protocol Piperacillin Sod/Tazobactam 50 mls @ 100 mls/hr 05/12/24 20:00 05/13/24 13:12 Sod 2.25 gm/ Sodium Chloride IV Infused Q8H [facility] Infusion Insulin Human Lispro 0 unit 05/12/24 16:30 05/13/24 18:18 Insulin Lispro 100 Unit/Ml 3 Ml Vial SUBCUT Not Given QIDACHS [facility] Protocol Sodium Chloride 3 ml 05/13/24 00:00 05/13/24 17:48 0.9 % Sodium Chloride Flush 3 Ml Syringe IVFLUSH 3 ml QSHIFT [facility] Administration Discontinued Medications Generic Name Dose Route Start Last Admin Trade Name Freq PRN Reason Stop Dose Admin Heparin Sodium (Porcine) 10,000 unit 05/12/24 15:18 05/12/24 15:36 Heparin Sodium,Porcine 5,000 Unit/Ml Vial IVPUSH 05/12/24 15:19 10,000 unit ONCE ONE Administration Vancomycin HCl 2,000 mg in 500 mls @ 250 mls/hr 05/12/24 11:32 05/12/24 14:55 Vancomycin/Ns IV 05/12/24 13:31 Infused ONCE ONE Infusion Piperacillin Sod/Tazobactam 100 mls @ 200 mls/hr 05/12/24 11:32 05/12/24 12:39 Sod 4.5 gm/ Sodium Chloride IV 05/12/24 12:01 Infused ONCE ONE Infusion Sodium Chloride 500 mls @ 999 mls/hr 05/12/24 11:45 05/12/24 12:40 Ns IV 05/12/24 12:15 Infused .Q31M [facility] Infusion Morphine Sulfate 4 mg 05/12/24 13:38 05/12/24 13:52 Morphine Sulfate 4 Mg/Ml Cartridge IVPUSH 05/12/24 13:39 4 mg ONCE ONE Administration Protocol Ondansetron HCl 4 mg 05/12/24 13:39 05/12/24 13:52 Ondansetron Hcl 4 Mg/2 Ml Vial IVPUSH 05/12/24 13:40 4 mg ONCE ONE Administration Medical Decision Making Medical Decision Making [facility] Narrative: 53-year-old male with past medical history as above presents for evaluation of fever and right foot pain. He was hypotensive in triage that 84/56. [place] [id number], he has a reported temp of a 100.8? at home this morning, he is currently afebrile but did take Tylenol prior to arrival to the ED. my most likely diagnosis is cellulitis of the right foot with or without osteomyelitis. The patient does meet sepsis criteria with elevated white count, hypotension and suspected infection. We will order 500 cc IV fluid bolus, we will not administer 30 cc/kilos because he does not meet severe sepsis but also has a history of end-stage renal disease on dialysis. We will also obtain a chest x-ray the patient denies any respiratory symptoms. He has no abdominal pain, tenderness on exam, nausea or vomiting. Less likely to be intra-abdominal infection. We will get a urinalysis, further workup as indicated. The patient's blood pressure did improve to 130/69. I did order a 3rd blood culture to be drawn off the patient's central Port-A-Cath line, however we do not have any staff available in his capable of drawing blood off about line. We will not hold off on the patient's antibiotics while attempting to get blood off of this line. This can be re-evaluated if the patient does have positive peripheral blood cultures. His Port-A-Cath does not appear infected Differential Diagnosis Differential Diagnoses: The differential diagnosis associated with the presentation includes Cellulitis Osteomyelitis Sepsis Viral syndrome UTI Pyelonephritis Admission/Observation Consideration of admission/observation: Escalation of care including admission/observation considered Lab Data [facility] Lab Attestation statement: I reviewed the patient's lab results. Leukocytosis to 12.1 1000 with a left shift. Patient has anemia of chronic disease consistent with his baseline. Normal platelet count. No significant electrolytes warranting intervention. He was a dialysis patient, elevated BUN and creatinine are consistent with his baseline. 05/13/24 06:55 05/13/24 06:55 Labs: Lab Results 05/12/24 05/12/24 05/12/24 Range/Units 11:00 11:01 17:53 WBC 12.1 H (4.8-10.8) X10*3/uL RBC 3.51 L (4.60-5.80) X10*6/uL Hgb 9.6 L (14.0-18.0) g/dl Hct 30.5 L (42.0-52.0) % MCV 86.9 (80.0-98.0) fL MCH 27.4 (27.0-33.0) pg MCHC 31.5 (31.0-36.0) g/dl RDW 13.2 (11.0-16.0) % Plt Count 381 D (160-400) X10*3/uL MPV 9.8 (9.4-12.4) fL Immature Gran % (Auto) 0.7 H (0.0-0.4) % Neut % (Auto) 83.5 H (45-73) % Lymph % (Auto) 7.1 L (20-40) % [place] % (Auto) 6.6 (2-11) % Eos % (Auto) 1.4 (0-4) % Baso % (Auto) 0.7 (0-2) % Lymph # (Auto) 0.9 L (1.2-4.9) X10*3/uL [place] # (Auto) 0.8 (0.1-1.2) X10*3/uL Eos # (Auto) 0.2 (0.0-0.4) X10*3/uL Baso # (Auto) 0.1 (0.0-0.2) X10*3/uL Abs Immat Gran (auto) 0.09 H (0.00-0.03) X10*3/uL Absolute Neuts (auto) 10.1 H (2.0-8.3) x10*3/uL Absolute Nucleated RBC 0.000 (0.0-0.012) X10*3/uL Nucleated RBC % (auto) 0.0 (0.0-0.2) /100WBC ESR 116 H (0-15) MM/HR Sodium 136 (135-145) mmol/L Potassium 4.4 (3.3-5.1) mmol/L Chloride 100 (96-108) mmol/L Carbon Dioxide 26 (22-29) mmol/L Anion Gap 14 (12-20) BUN 63 H (9-16) mg/dL Creatinine 6.79 H* (0.5-1.4) mg/dL Estim Creat Clear Calc 14.1 Estimated GFR 9 POC Glucose 112 (60-115) mg/dL Random Glucose 140 H (60-115) mg/dL Lactic Acid 1.1 (0.5-2.0) mmol/L Calcium 9.0 D (8.4-10.2) mg/dL Magnesium 2.1 (1.6-2.6) mg/dL Total Bilirubin 0.4 (0.0-1.0) mg/dL AST 14 (5-37) U/L ALT < 6 (0-40) U/L Alkaline Phosphatase 59 (39-117) U/L C-Reactive Protein 24.78 H (< or = 0.50) mg/dL Total Protein 8.1 H (6.5-8.0) g/dL Albumin 3.6 (3.5-5.0) g/dL Urine Color Urine Appearance Urine pH (5.0-9.0) Ur Specific [place] (1.005-1.025) Urine Protein (Neg-Trace) mg/dL Urine Glucose (UA) (Negative) mg/dL Urine Ketones (Negative) mg/dL Urine Blood (Negative) Urine Nitrite (Negative) Ur Leukocyte Esterase (Negative) Urine RBC (0-2) /HPF Urine WBC (0-5) /HPF Ur Squamous Epith Cells (0-2) /HPF Urine Bacteria (None Seen) Hyaline Casts (0-2) /LPF Influenza Type A (PCR) NEGATIVE (Negative) Influenza Type B (PCR) NEGATIVE (Negative) RSV RNA Qual (PCR) NEGATIVE (Negative) SARS-CoV-2 RNA (RT-PCR) NEGATIVE (Negative) 05/12/24 Range/Units 18:08 WBC (4.8-10.8) X10*3/uL RBC (4.60-5.80) X10*6/uL Hgb (14.0-18.0) g/dl Hct (42.0-52.0) % MCV (80.0-98.0) fL MCH (27.0-33.0) pg MCHC (31.0-36.0) g/dl RDW (11.0-16.0) % Plt Count (160-400) X10*3/uL MPV (9.4-12.4) fL Immature Gran % (Auto) (0.0-0.4) % Neut % (Auto) (45-73) % Lymph % (Auto) (20-40) % [place] % (Auto) (2-11) % Eos % (Auto) (0-4) % Baso % (Auto) (0-2) % Lymph # (Auto) (1.2-4.9) X10*3/uL [place] # (Auto) (0.1-1.2) X10*3/uL Eos # (Auto) (0.0-0.4) X10*3/uL Baso # (Auto) (0.0-0.2) X10*3/uL Abs Immat Gran (auto) (0.00-0.03) X10*3/uL Absolute Neuts (auto) (2.0-8.3) x10*3/uL Absolute Nucleated RBC (0.0-0.012) X10*3/uL Nucleated RBC % (auto) (0.0-0.2) /100WBC ESR (0-15) MM/HR Sodium (135-145) mmol/L Potassium (3.3-5.1) mmol/L Chloride (96-108) mmol/L Carbon Dioxide (22-29) mmol/L Anion Gap (12-20) BUN (9-16) mg/dL Creatinine (0.5-1.4) mg/dL Estim Creat Clear Calc Estimated GFR POC Glucose (60-115) mg/dL Random Glucose (60-115) mg/dL Lactic Acid (0.5-2.0) mmol/L Calcium (8.4-10.2) mg/dL Magnesium (1.6-2.6) mg/dL Total Bilirubin (0.0-1.0) mg/dL AST (5-37) U/L ALT (0-40) U/L Alkaline Phosphatase (39-117) U/L C-Reactive Protein (< or = 0.50) mg/dL Total Protein (6.5-8.0) g/dL Albumin (3.5-5.0) g/dL Urine Color Yellow Urine Appearance Clear Urine pH 6.5 (5.0-9.0) Ur Specific [place] 1.020 (1.005-1.025) Urine Protein >=1000 (4+) H (Neg-Trace) mg/dL Urine Glucose (UA) 100 H (Negative) mg/dL Urine Ketones Trace (Negative) mg/dL Urine Blood Moderate (2+) H (Negative) Urine Nitrite Negative (Negative) Ur Leukocyte Esterase Negative (Negative) Urine RBC 11-20 H (0-2) /HPF Urine WBC 0-5 (0-5) /HPF Ur Squamous Epith Cells 0-2 (0-2) /HPF Urine Bacteria None Seen (None Seen) Hyaline Casts 3-5 (0-2) /LPF Influenza Type A (PCR) (Negative) Influenza Type B (PCR) (Negative) RSV RNA Qual (PCR) (Negative) SARS-CoV-2 RNA (RT-PCR) (Negative) Radiology Impression Discussion of test interpretation with radiology: I have reviewed the radiologist's reading. Radiologist Impression: Findings: The lungs are clear. Heart size is normal. A right-sided dialysis catheter is present. No acute fracture. IMPRESSION: 1. No acute findings. This document has been electronically signed by: Alfredito Armenta MD on 05/12/2024 12:00:16 Findings: The patient is status post transmetatarsal amputation of the 1st through 4th digits. There is no evidence of osteomyelitis. No significant arthritic change or erosions. No ankle effusion. No radiopaque foreign body. IMPRESSION: The patient is status post transmetatarsal amputation of the 1st through 4th digits. There is no evidence of osteomyelitis. This document has been electronically signed by: Alfredito Armenta MD on 05/12/2024 12:00:21 Discharge Plan Discharge Clinical Impression: Vitamin D deficiency, Mixed dyslipidemia, Allergic rhinitis, Essential hypertension, Generalized anxiety disorder, Diabetic neuropathic arthropathy, Obstructive sleep apnea syndrome, Smoker unmotivated to quit, Spondylosis of lumbar spine, Weakness of both lower extremities, Chronic obstructive pulmonary disease, Spondylosis of cervical spine, Normocytic normochromic anemia, Obesity with body mass index (BMI) of 30.0 to 39.9, History of cerebrovascular accident (CVA) with residual deficit, 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, Diabetic peripheral angiopathy, Stage 4 chronic kidney disease, End-stage renal disease on hemodialysis, Cellulitis of right foot, Fibromyalgia, Arthralgia of multiple joints Diabetes mellitus with diabetic neuropathy Qualifiers: Diabetes mellitus type: type 2 Diabetes mellitus 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 termite insulin use: without 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 termite use Qualified Code(s): E11.40 - Type 2 diabetes mellitus with diabetic neuropathy, unspecified Traumatic amputation of toe Qualifiers: Encounter type: subsequent encounter Laterality: right Qualified Code(s): S98.131D - Complete traumatic amputation of one right lesser toe, subsequent encounter Stage 3 chronic kidney disease Qualifiers: Chronic kidney disease stage 3 subtype: stage 3a (GFR 45-59) Qualified Code(s): N18.31 - Chronic kidney disease, stage 3a Patient Disposition: Admitted As Inpatient Interventions: Admission Worksheet (ED) Last Done: 05/13/24 07:59 Discharge Date/Time: 05/13/24 15:52
--- NOTE | 2024-05-12 10:41 | ECG_ITS ---
Test Reason : DYSPNEA Blood Pressure : */* mmHG Vent. Rate : 93 BPM Atrial Rate : 93 BPM P-R Int : 160 ms QRS Dur : 92 ms QT Int : 360 ms P-R-T Axes : 32 -5 113 degrees QTcB Int : 447 ms Normal sinus rhythm T wave abnormality, consider lateral ischemia Abnormal ECG When compared with ECG of 12-Nov-2023 11:46, No significant change was found Referred By: Ying Bhakta Electronically Signed By: ELHAM LEAVITT MD
[2024-05-12 11:10] LABS: MANUAL DIFF FLAG NO
[2024-05-12 11:18] LABS: Basophils Absolute Auto 0.1 X10*3/uL (0.0-0.2); Basophils Percent Auto 0.7 % (0-2); Eosinophils Absolute Auto 0.2 X10*3/uL (0.0-0.4); Eosinophils Percent Auto 1.4 % (0-4); Hematocrit 30.5 % (42.0-52.0); Hemoglobin 9.6 g/dl (14.0-18.0); Imm Gran Abs Auto 0.09 X10*3/uL (0.00-0.03); Imm Gran Pct Auto 0.7 % (0.0-0.4); Lymphocytes Absolute Auto 0.9 X10*3/uL (1.2-4.9); Lymphocytes Percent Auto 7.1 % (20-40); Mean Corpuscular HGB Conc 31.5 g/dl (31.0-36.0); Mean Corpuscular Hemoglobin 27.4 pg (27.0-33.0); Mean Corpuscular Volume 86.9 fL (80.0-98.0); Mean Platelet Volume 9.8 fL (9.4-12.4); Monocytes Absolute Auto 0.8 X10*3/uL (0.1-1.2); Monocytes Percent Auto 6.6 % (2-11); Neutrophils Absolute Auto 10.1 x10*3/uL (2.0-8.3); Neutrophils Percent Auto 83.5 % (45-73); Platelet Count 381 X10*3/uL (160-400); Red Blood Count 3.51 X10*6/uL (4.60-5.80); Red Cell Distribution Width 13.2 % (11.0-16.0); White Blood Count 12.1 X10*3/uL (4.8-10.8)
[2024-05-12 11:28] LABS: Lactic Acid 1.1 mmol/L (0.5-2.0)
[2024-05-12 11:46] LABS: Alanine Aminotransferase < 6 U/L (0-40); Albumin Level 3.6 g/dL (3.5-5.0); Alkaline Phosphatase 59 U/L (39-117); Anion Gap 14 (12-20); Aspartate Amino Transferase 14 U/L (5-37); Bilirubin Total 0.4 mg/dL (0.0-1.0); Blood Urea Nitrogen 63 mg/dL (9-16); C Reactive Protein 24.78 mg/dL (< or = 0.50); Carbon Dioxide 26 mmol/L (22-29); Chloride 100 mmol/L (96-108); Creatinine Clr Calc Pharmacy 14.1; Estimated Glomerular Filt Rate 9; Glucose Random 140 mg/dL (60-115); Magnesium 2.1 mg/dL (1.6-2.6); Potassium 4.4 mmol/L (3.3-5.1); Sodium 136 mmol/L (135-145); Total Protein 8.1 g/dL (6.5-8.0)
[2024-05-12 11:51] LABS: Erythrocyte Sedimentation Rate 116 MM/HR (0-15)
[2024-05-12] MEDS: Piperacillin Sodium/Tazobactam 4.5 GM in 0.9 % Sodium Chloride 100 ML IV (11:54)
[2024-05-12] MEDS: 0.9 % Sodium Chloride 500 ML 999 ML IV (11:55)
[2024-05-12 11:56] LABS: Influenza A PCR NEGATIVE (Negative); Influenza B PCR NEGATIVE (Negative); Resp Syncy Virus RNA Qual PCR NEGATIVE (Negative); SARS COV2 PCR INHOUSE NEGATIVE (Negative)
[2024-05-12] MEDS: vancomycin/NS 2,000 MG/500 ML PLAST..BAG 250 MG IV (12:42)
[2024-05-12] MEDS: Morphine Sulfate 4 MG/ML CARTRIDGE IVPUSH (13:52)
[2024-05-12] MEDS: ondansetron HCL 4 MG/2 ML VIAL IVPUSH (13:52)
[2024-05-12] MEDS: Heparin Sodium,Porcine 5,000 UNIT/ML VIAL 10000 UNIT IVPUSH (15:36)
--- NOTE | 2024-05-12 16:35 | PM.IMHP ---
History of Present Illness Date of Service: 05/12/24 Chief Complaint: fever 53M PMH ESRD on HD, DM, history of cva, copd, mood disroder, htn, presented with fevers. Patient states that symptoms began about 2 weeks ago. Has been having right foot lateral erythema and pain. This has been associated with low-grade fevers as high as 100.8 on day of presentation. Patient having increased fatigue as well. Of note recently started hemodialysis via PermCath. In ED x-ray unremarkable. Afebrile. Review of Systems Review of Systems: Yes all other systems are reviewed and are negative [facility] Medical History Intermittent lightheadedness History of CVA with residual deficit Left cervical lymphadenopathy Obesity (BMI 30-39.9) Normocytic normochromic anemia COPD (chronic obstructive pulmonary disease) Cigarette smoker Smoker unmotivated to quit RODGER (obstructive sleep apnea) Generalized anxiety disorder 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 Essential hypertension Allergic rhinitis Mixed dyslipidemia Amputation, toe, traumatic Vitamin D deficiency Diabetes mellitus with neuropathy Diabetes mellitus with hyperglycemia, with long-term current use of insulin Osteoarthritis Fibromyalgia Diabetic peripheral angiopathy Spondylosis of cervical spine Diabetic neurogenic arthropathy Family History Father HTN (hypertension) Diabetes Mental health disorder Mother HTN (hypertension) Brother Stroke Surgical History History of foot surgery Social History Household Members: Spouse and Children Housing: Apartment Alcohol intake: never Patient Tobacco Use Status: Current someday Tobacco user Cigarettes Per Day: 3 Years Smoked: 36 Smoked in Last 30 Days: No e-Cigarette/Vaping Use: Never Used Use of substances other than those prescribed or required for medical reasons: No Advance Directives: No Advance Directives Information Provided: Yes Do you have a plan to hurt others: No Plan Current occupational status: disabled Cognitive needs: No Hearing needs: No Vision needs: No Meds Allergies Allergy/AdvReac Type Severity Reaction Status Date / Time No Known Allergies Allergy Verified 05/12/24 10:45 Active Medications: Current Medications Acetaminophen (Acetaminophen 325 Mg Tablet) 650 mg PO Q6H PRN PRN Reason: Pain, Mild 1-3,fever,headache Calcium Carbonate (Calcium Carbonate 750 Mg Tab.Chew) 750 mg PO Q4H PRN PRN Reason: Heartburn Dextrose (Dextrose 50 % 25 Gm/50 Ml Syringe) 25 gm IVPUSH Q15M PRN; Protocol PRN Reason: per Hypoglycemia Standing Ord. Glucose (Glucose Gel 15 Gm Gel..Gram.) 15 gm PO Q15M PRN; Protocol PRN Reason: per Hypoglycemia Standing Ord. Heparin Sodium (Porcine) (Heparin Sodium,Porcine 5,000 Unit/Ml Vial) 5,000 unit SUBCUT Q8H [facility] Vancomycin HCl 1,000 mg/ (Sodium Chloride) 270 mls @ 270 mls/hr IV Q24H [facility] Piperacillin Sod/Tazobactam (Sod 3.375 gm/ Sodium Chloride) 50 mls @ 100 mls/hr IV Q8H [facility] Insulin Human Lispro (Insulin Lispro 100 Unit/Ml 3 Ml Vial) 0 unit SUBCUT QIDACHS [facility]; Protocol Magnesium Hydroxide (Milk Of Magnesia 30 Ml Oral.Susp) 30 ml PO DAILY PRN PRN Reason: Constipation Melatonin (Melatonin 3 Mg Tablet) 6 mg PO BEDTIME PRN PRN Reason: Insomnia Pharmacy Consult (Consult Rx Vancomycin Dosing) 1 each MISCELLANE DAILY PRN PRN Reason: Consult order Sodium Chloride (0.9 % Sodium Chloride Flush 3 Ml Syringe) 3 ml IVFLUSH QSHIFT [facility] Home Medications ?Medication ?Instructions ?Recorded ?Confirmed ?Last Taken ?Type nortriptyline 50 mg capsule 50 mg PO BEDTIME 07/13/20 03/01/24 Unknown History prazosin 1 mg capsule 1 mg PO BEDTIME 10/02/20 03/01/24 Unknown History duloxetine 30 mg capsule,delayed 60 mg PO DAILY pain 05/01/22 03/01/24 Unknown History release carvedilol 25 mg tablet 25 mg PO BID 11/05/23 03/01/24 Unknown History isosorbide mononitrate 30 mg 30 mg PO DAILY 11/05/23 03/01/24 Unknown History tablet,extended release 24 hr loratadine 10 mg tablet 10 mg PO DAILY 11/23/23 03/01/24 Unknown History amlodipine 10 mg tablet 10 mg PO DAILY 03/01/24 03/01/24 Unknown History Physical Exam Vital Signs and Narrative: Vital Signs: Last Vital Signs Temp 98.9 F 03/27/25 15:39 Pulse 87 05/12/24 15:39 Resp 18 05/12/24 15:39 BP 162/85 H 05/12/24 15:39 Pulse Ox 96 05/12/24 15:39 O2 Del Method Room Air 05/12/24 15:39 BMI result Body Mass Index 23.1 General: AO X 3, no acute distress Resp: CTA bilateral, no accessory muscles used CVS: S1,S2,RRR GI: soft, non tender, non distended Neuro: motor grossly intact, alert Psych: appropriate affect, appropriate insight Results Labs 05/12/24 11:00 05/12/24 11:00 Labs: Laboratory Results - last 24 hr 05/12/24 05/12/24 11:00 11:01 MCV 86.9 MCH 27.4 MCHC 31.5 RDW 13.2 Plt Count 381 D MPV 9.8 Immature Gran % (Auto) 0.7 H Neut % (Auto) 83.5 H Lymph % (Auto) 7.1 L [place] % (Auto) 6.6 Eos % (Auto) 1.4 Baso % (Auto) 0.7 Lymph # (Auto) 0.9 L [place] # (Auto) 0.8 Eos # (Auto) 0.2 Baso # (Auto) 0.1 Abs Immat Gran (auto) 0.09 H Absolute Neuts (auto) 10.1 H Absolute Nucleated RBC 0.000 Nucleated RBC % (auto) 0.0 ESR 116 H Anion Gap 14 Estim Creat Clear Calc 14.1 Estimated GFR 9 Random Glucose 140 H Lactic Acid 1.1 Calcium 9.0 D Magnesium 2.1 Total Bilirubin 0.4 AST 14 ALT < 6 Alkaline Phosphatase 59 C-Reactive Protein 24.78 H Total Protein 8.1 H Albumin 3.6 Influenza Type A (PCR) NEGATIVE Influenza Type B (PCR) NEGATIVE RSV RNA Qual (PCR) NEGATIVE SARS-CoV-2 RNA (RT-PCR) NEGATIVE Assessment and Plan (1) Generalized anxiety disorder: Status: Acute Plan 53M PMH ESRD on HD, DM, history of cva, copd, mood disroder, htn, presented with fevers Right lower extremity cellulitis due to diabetes Vancomycin and Zosyn Follow up cultures, ID eval No sepsis End-stage renal disease On hemodialysis via PermCath, nephrology eval Diabetes Continue insulin History of CVA Aspirin statin COPD Stable DVT prophylaxis heparin subQ Full code Patient with significant infection with risk for multidrug resistant organisms due to diabetes therefore expected require at least 2 midnights inpatient Quality Stroke Does the patient have a stroke diagnosis?: No VTE Prior VTE?: No VTE Risk Level:: Medical - moderate - high VTE Device Contraindication: Treatment Not Indicated VTE Drug Contraindication: N/A - Med Ordered
[2024-05-12 18:24] LABS: Appearance Urine Clear; Color Urine Yellow; Glucose Urine UA 100 mg/dL (Negative); Leukocyte Esterase Urine Negative (Negative); Nitrite Urine Negative (Negative); PH 6.5 (5.0-9.0); UMIC TRIGGER UACC YES; Urine Blood Moderate (2+) (Negative); Urine Ketones Trace mg/dL (Negative); Urine Protein >=1000 (4+) mg/dL (Neg-Trace)
[2024-05-12 18:32] LABS: Bacteria Urine None Seen (None Seen); Squamous Epithelial Cell Urine 0-2 /HPF (0-2); WBC Urine 0-5 /HPF (0-5)
[2024-05-12 19:32] LABS: Glucose, Whole Blood 112 mg/dL (60-115)
[2024-05-12] MEDS: Piperacillin Sodium/Tazobactam 2.25 GM in 0.9 % Sodium Chloride 50 ML IV (20:52)
[2024-05-12 21:57] LABS: Glucose, Whole Blood 124 mg/dL (60-115)
[2024-05-12] MEDS: Heparin Sodium,Porcine 5,000 UNIT/ML VIAL 5000 UNIT SUBCUT (22:43)
[2024-05-12] MEDS: Atorvastatin Calcium 40 MG TABLET PO (22:43)
[2024-05-13] VITALS (9 sets, daily range): BP systolic 100–160; BP diastolic 57–81; PULSE 76–102; RESP 16–18; TEMP 36.7–37.6; O2SAT 93–96
[2024-05-13] MEDS: 0.9 % Sodium Chloride Flush 3 ML SYRINGE IVFLUSH ×4 (00:10→22:19)
[2024-05-13] MEDS: Piperacillin Sodium/Tazobactam 2.25 GM in 0.9 % Sodium Chloride 50 ML IV ×3 (04:03→21:26)
--- NOTE | 2024-05-13 05:15 | PC.NURSE ---
Assumed care of patient. Patient slept through out night. Vital signs stable.
[2024-05-13 07:36] LABS: Hematocrit 27.4 % (42.0-52.0); Hemoglobin 8.7 g/dl (14.0-18.0); Mean Corpuscular HGB Conc 31.8 g/dl (31.0-36.0); Mean Corpuscular Hemoglobin 27.8 pg (27.0-33.0); Mean Corpuscular Volume 87.5 fL (80.0-98.0); Mean Platelet Volume 9.8 fL (9.4-12.4); Platelet Count 326 X10*3/uL (160-400); Red Blood Count 3.13 X10*6/uL (4.60-5.80); Red Cell Distribution Width 13.3 % (11.0-16.0); White Blood Count 11.1 X10*3/uL (4.8-10.8)
[2024-05-13 07:49] LABS: Anion Gap 21 (12-20); Blood Urea Nitrogen 70 mg/dL (9-16); Calcium 8.6 mg/dL (8.4-10.2); Carbon Dioxide 24 mmol/L (22-29); Chloride 100 mmol/L (96-108); Creatinine Clr Calc Pharmacy 12.2; Estimated Glomerular Filt Rate 7; Glucose Random 136 mg/dL (60-115); Potassium 4.5 mmol/L (3.3-5.1); Sodium 140 mmol/L (135-145)
[2024-05-13 08:16] LABS: Glucose, Whole Blood 131 mg/dL (60-115)
[2024-05-13] MEDS: hydrALAZINE HCl 10 MG TABLET PO ×3 (09:35→22:18)
[2024-05-13] MEDS: amLODIPine Besylate 10 MG TABLET PO (09:36)
[2024-05-13] MEDS: Heparin Sodium,Porcine 5,000 UNIT/ML VIAL 5000 UNIT SUBCUT ×3 (09:36→22:19)
--- NOTE | 2024-05-13 09:58 | PHA.MEDREC ---
Addendum entered by Dario Hernandes 05/13/24 10:16: Reviewed Original Note: Pharmacy Consult ? Medication Reconciliation Pharmacy has completed the medication reconciliation. Was left paper work from overnight after pm staff tried contacting pt family with no luck last night. I called patients daughter this morning and was able to speak with her and she was able to confirm some of the medications but did not know them all and names at this time and stated her dad fills at [facility] and we can call them to confirm the medications or we can call the patients spouse Rima to try and confirm them. The daughter was able to confirm the Amlodipine 10mg tab once a day, Atorvastatin 80mg once at bedtime, the Insulin Aspart (Novolog) and stating they test and inject 8 units three times a day before meals, and the Monjaro once a week on Mondays and states her dad was not able to take it this past Thursday due to how hes been feeling. I called patients to confirm the rest of the medications and she did not remember a lot of the names and recommended we called [facility]. The was able to confirm the patients Vitamin D2 once a week on Saturdays and stated he took it this past Thursday. The was able to confirm the Insulin Aspart (Novolog) stating her tests and injects 8 units three times before meals. She also confirmed the Lantus Solostar and confirmed her injects 20 units of that at bedtime. She stated her father has not taken any medications since at least Thursday due to not really eating at this time from being sick. I called [facility] and got a list from them I was able to utilize and confirm the rest of the med rec with.
[2024-05-13] MEDS: Aspirin 81 MG TAB.CHEW PO (10:10)
--- NOTE | 2024-05-13 10:42 | HO.PM.IMPN ---
Subjective Subjective Date of Service: 05/13/24 Interval History: mild improvement Physical Exam Vital Signs: Vital Signs: Last Vital Signs Temp 98.3 F 05/13/24 07:55 Pulse 88 05/13/24 07:55 Resp 18 05/13/24 07:55 BP 160/81 H 05/13/24 09:36 Pulse Ox 95 05/13/24 07:55 O2 Del Method Room Air 05/13/24 07:55 BMI result Body Mass Index 23.1 rle ertyhema mild Objective Data Active Medications Acetaminophen (Acetaminophen 325 Mg Tablet) 650 mg PO Q6H PRN PRN Reason: Pain, Mild 1-3,fever,headache Amlodipine Besylate (Amlodipine Besylate 10 Mg Tablet) 10 mg PO DAILY [facility]; Protocol Last Admin: 05/13/24 09:36 Dose: 10 mg Documented By: ANALI Aspirin (Aspirin 81 Mg Tab.Chew) 81 mg PO DAILY [facility] Last Admin: 05/13/24 10:10 Dose: 81 mg Documented By: ANALI Atorvastatin Calcium (Atorvastatin Calcium 40 Mg Tablet) 40 mg PO BEDTIME [facility] Last Admin: 05/12/24 22:43 Dose: 40 mg Documented By: LANCE Calcium Carbonate (Calcium Carbonate 750 Mg Tab.Chew) 750 mg PO Q4H PRN PRN Reason: Heartburn Dextrose (Dextrose 50 % 25 Gm/50 Ml Syringe) 25 gm IVPUSH Q15M PRN; Protocol PRN Reason: per Hypoglycemia Standing Ord. Glucose (Glucose Gel 15 Gm Gel..Gram.) 15 gm PO Q15M PRN; Protocol PRN Reason: per Hypoglycemia Standing Ord. Heparin Sodium (Porcine) (Heparin Sodium,Porcine 5,000 Unit/Ml Vial) 5,000 unit SUBCUT Q8H [facility] Last Admin: 05/13/24 09:36 Dose: 5,000 unit Documented By: ANALI Heparin Sodium (Porcine) (Heparin Sodium,Porcine 5,000 Unit/Ml Vial) 5,000 unit INTRACATH [id number] [facility] Hydralazine HCl (Hydralazine Hcl 10 Mg Tablet) 10 mg PO TID [facility]; Protocol Last Admin: 05/13/24 09:35 Dose: 10 mg Documented By: ANALI Vancomycin HCl 1,000 mg/ (Sodium Chloride) 270 mls @ 270 mls/hr IV Q24H [facility] Piperacillin Sod/Tazobactam (Sod 2.25 gm/ Sodium Chloride) 50 mls @ 100 mls/hr IV Q8H [facility] Last Infusion: 05/13/24 05:39 Dose: Infused Documented By: D[place] Insulin Human Lispro (Insulin Lispro 100 Unit/Ml 3 Ml Vial) 0 unit SUBCUT QIDACHS [facility]; Protocol Last Admin: 05/13/24 09:33 Dose: Not Given Documented By: ANALI Non-Admin Reason: No Insulin Coverage Magnesium Hydroxide (Milk Of Magnesia 30 Ml Oral.Susp) 30 ml PO DAILY PRN PRN Reason: Constipation Melatonin (Melatonin 3 Mg Tablet) 6 mg PO BEDTIME PRN PRN Reason: Insomnia Pharmacy Consult (Consult Rx Vancomycin Dosing) 1 each MISCELLANE DAILY PRN PRN Reason: Consult order Sodium Chloride (0.9 % Sodium Chloride Flush 3 Ml Syringe) 3 ml IVFLUSH QSHIFT [facility] Last Admin: 05/13/24 09:36 Dose: 3 ml Documented By: ANALI Labs 05/13/24 06:55 05/13/24 06:55 Labs: Laboratory Results - last 24 hr 05/12/24 05/12/24 05/12/24 11:00 11:01 17:53 MCV 86.9 MCH 27.4 MCHC 31.5 RDW 13.2 Plt Count 381 D MPV 9.8 Immature Gran % (Auto) 0.7 H Neut % (Auto) 83.5 H Lymph % (Auto) 7.1 L [place] % (Auto) 6.6 Eos % (Auto) 1.4 Baso % (Auto) 0.7 Lymph # (Auto) 0.9 L [place] # (Auto) 0.8 Eos # (Auto) 0.2 Baso # (Auto) 0.1 Abs Immat Gran (auto) 0.09 H Absolute Neuts (auto) 10.1 H Absolute Nucleated RBC 0.000 Nucleated RBC % (auto) 0.0 ESR 116 H Anion Gap 14 Estim Creat Clear Calc 14.1 Estimated GFR 9 POC Glucose 112 Random Glucose 140 H Lactic Acid 1.1 Calcium 9.0 D Magnesium 2.1 Total Bilirubin 0.4 AST 14 ALT < 6 Alkaline Phosphatase 59 C-Reactive Protein 24.78 H Total Protein 8.1 H Albumin 3.6 Urine Color Urine Appearance Urine pH Ur Specific [place] Urine Protein Urine Glucose (UA) Urine Ketones Urine Blood Urine Nitrite Ur Leukocyte Esterase Urine RBC Urine WBC Ur Squamous Epith Cells Urine Bacteria Hyaline Casts Influenza Type A (PCR) NEGATIVE Influenza Type B (PCR) NEGATIVE RSV RNA Qual (PCR) NEGATIVE SARS-CoV-2 RNA (RT-PCR) NEGATIVE 05/12/24 05/12/24 05/13/24 18:08 20:51 06:55 MCV 87.5 MCH 27.8 MCHC 31.8 RDW 13.3 Plt Count 326 MPV 9.8 Immature Gran % (Auto) Neut % (Auto) Lymph % (Auto) [place] % (Auto) Eos % (Auto) Baso % (Auto) Lymph # (Auto) [place] # (Auto) Eos # (Auto) Baso # (Auto) Abs Immat Gran (auto) Absolute Neuts (auto) Absolute Nucleated RBC 0.000 Nucleated RBC % (auto) 0.0 ESR Anion Gap 21 H Estim Creat Clear Calc 12.2 Estimated GFR 7 POC Glucose 124 H Random Glucose 136 H Lactic Acid Calcium 8.6 Magnesium Total Bilirubin AST ALT Alkaline Phosphatase C-Reactive Protein Total Protein Albumin Urine Color Yellow Urine Appearance Clear Urine pH 6.5 Ur Specific [place] 1.020 Urine Protein >=1000 (4+) H Urine Glucose (UA) 100 H Urine Ketones Trace Urine Blood Moderate (2+) H Urine Nitrite Negative Ur Leukocyte Esterase Negative Urine RBC 11-20 H Urine WBC 0-5 Ur Squamous Epith Cells 0-2 Urine Bacteria None Seen Hyaline Casts 3-5 Influenza Type A (PCR) Influenza Type B (PCR) RSV RNA Qual (PCR) SARS-CoV-2 RNA (RT-PCR) 05/13/24 07:04 MCV MCH MCHC RDW Plt Count MPV Immature Gran % (Auto) Neut % (Auto) Lymph % (Auto) [place] % (Auto) Eos % (Auto) Baso % (Auto) Lymph # (Auto) [place] # (Auto) Eos # (Auto) Baso # (Auto) Abs Immat Gran (auto) Absolute Neuts (auto) Absolute Nucleated RBC Nucleated RBC % (auto) ESR Anion Gap Estim Creat Clear Calc Estimated GFR POC Glucose 131 H Random Glucose Lactic Acid Calcium Magnesium Total Bilirubin AST ALT Alkaline Phosphatase C-Reactive Protein Total Protein Albumin Urine Color Urine Appearance Urine pH Ur Specific [place] Urine Protein Urine Glucose (UA) Urine Ketones Urine Blood Urine Nitrite Ur Leukocyte Esterase Urine RBC Urine WBC Ur Squamous Epith Cells Urine Bacteria Hyaline Casts Influenza Type A (PCR) Influenza Type B (PCR) RSV RNA Qual (PCR) SARS-CoV-2 RNA (RT-PCR) Assessment and Plan (1) Generalized anxiety disorder: Status: Acute Plan 53M PMH ESRD on HD, DM, history of cva, copd, mood disroder, htn, presented with fevers Right lower extremity cellulitis due to diabetes Vancomycin and Zosyn Follow up cultures, ID eval No sepsis End-stage renal disease On hemodialysis via PermCath, HTN coreg, amlodipine, hydralazine, imdur Diabetes Continue insulin History of CVA Aspirin statin COPD Stable DVT prophylaxis heparin subQ Full code reason for continued hospitalization:iv abx Quality Stroke Does the patient have a stroke diagnosis?: No VTE Prior VTE?: No VTE Risk Level:: Medical - moderate - high VTE Device Contraindication: Treatment Not Indicated VTE Drug Contraindication: N/A - Med Ordered
[2024-05-13 12:47] LABS: Glucose, Whole Blood 158 mg/dL (60-115)
--- NOTE | 2024-05-13 13:37 | PC.NURSE ---
Pt to dialysis via wheelchair
--- NOTE | 2024-05-13 14:02 | PM.CNNEP ---
History of Present Illness Reason for Consult Consult date: 05/13/24 Reason for consult: ESRD Chief Complaint Chief complaint: cellulitis History of Present Illness Narrative: 53 year old patient of Dr Del Valle on Home Hemo training for ESRD presented with fevers. Patient states that symptoms began about 2 weeks ago. Has been having right foot lateral erythema and pain. This has been associated with low-grade fevers as high as 100.8 on day of presentation. Patient having increased fatigue as well. In ED x-ray unremarkable. Afebrile. He was admitted for further management . Nephrology has been consulted to assist in his clinical care during his current hospital stay Review of Systems Review of Systems Yes all other systems are reviewed and are negative PMFSH Past Medical History Medical History Intermittent lightheadedness History of CVA with residual deficit Left cervical lymphadenopathy Obesity (BMI 30-39.9) Normocytic normochromic anemia COPD (chronic obstructive pulmonary disease) Cigarette smoker Smoker unmotivated to quit RODGER (obstructive sleep apnea) Generalized anxiety disorder 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 Essential hypertension Allergic rhinitis Mixed dyslipidemia Amputation, toe, traumatic Vitamin D deficiency Diabetes mellitus with neuropathy Diabetes mellitus with hyperglycemia, with long-term current use of insulin Osteoarthritis Fibromyalgia Diabetic peripheral angiopathy Spondylosis of cervical spine Diabetic neurogenic arthropathy Family History Family History Father HTN (hypertension) Diabetes Mental health disorder Mother HTN (hypertension) Brother Stroke Surgical History Surgical History History of foot surgery Social History Social History Household Members: Spouse and Children Housing: Apartment Alcohol intake: never Patient Tobacco Use Status: Current everyday Tobacco user Cigarettes Per Day: 3 Years Smoked: 36 Smoked in Last 30 Days: No e-Cigarette/Vaping Use: Never Used Use of substances other than those prescribed or required for medical reasons: No Advance Directives: No Advance Directives Information Provided: Yes Do you have a plan to hurt others: No Plan Nutrition Risks: No Nutritional Risk Current occupational status: disabled Cognitive needs: No Hearing needs: No Vision needs: No Meds Allergies Allergy/AdvReac Type Severity Reaction Status Date / Time No Known Allergies Allergy Verified 05/12/24 10:45 Active Medications: Current Medications Acetaminophen (Acetaminophen 325 Mg Tablet) 650 mg PO Q6H PRN PRN Reason: Pain, Mild 1-3,fever,headache Amlodipine Besylate (Amlodipine Besylate 10 Mg Tablet) 10 mg PO DAILY [facility]; Protocol Last Admin: 05/13/24 09:36 Dose: 10 mg Aspirin (Aspirin 81 Mg Tab.Chew) 81 mg PO DAILY [facility] Last Admin: 05/13/24 10:10 Dose: 81 mg Atorvastatin Calcium (Atorvastatin Calcium 40 Mg Tablet) 40 mg PO BEDTIME [facility] Last Admin: 05/12/24 22:43 Dose: 40 mg Calcitriol (Calcitriol 0.25 Mcg Capsule) 1 mcg PO MoTuThFr [facility] Calcium Carbonate (Calcium Carbonate 750 Mg Tab.Chew) 750 mg PO Q4H PRN PRN Reason: Heartburn Carvedilol (Carvedilol 12.5 Mg Tablet) 12.5 mg PO BID [facility]; Protocol Dextrose (Dextrose 50 % 25 Gm/50 Ml Syringe) 25 gm IVPUSH Q15M PRN; Protocol PRN Reason: per Hypoglycemia Standing Ord. Ergocalciferol (Ergocalciferol (Vitamin D2) 1,250 Mcg Capsule) 1,250 mcg PO SA [facility] Fluticasone/Vilanterol (Fluticasone/Vilanterol 200/25 Blst.W.Dev) 1 puff INHALE RDAILY [facility] Furosemide (Furosemide 40 Mg Tablet) 80 mg PO DAILY [facility]; Protocol Gabapentin (Gabapentin 100 Mg Capsule) 100 mg PO DAILY [facility] Glucose (Glucose Gel 15 Gm Gel..Gram.) 15 gm PO Q15M PRN; Protocol PRN Reason: per Hypoglycemia Standing Ord. Heparin Sodium (Porcine) (Heparin Sodium,Porcine 5,000 Unit/Ml Vial) 5,000 unit SUBCUT Q8H [facility] Last Admin: 05/13/24 09:36 Dose: 5,000 unit Heparin Sodium (Porcine) (Heparin Sodium,Porcine 5,000 Unit/Ml Vial) 5,000 unit INTRACATH MOWEFR@1645 [facility] Hydralazine HCl (Hydralazine Hcl 10 Mg Tablet) 10 mg PO TID [facility]; Protocol Last Admin: 05/13/24 09:35 Dose: 10 mg Vancomycin HCl 1,000 mg/ (Sodium Chloride) 270 mls @ 270 mls/hr IV Q24H [facility] Piperacillin Sod/Tazobactam (Sod 2.25 gm/ Sodium Chloride) 50 mls @ 100 mls/hr IV Q8H [facility] Last Infusion: 05/13/24 13:12 Dose: Infused Insulin Glargine (Insulin Glargine,Hum.Rec.Anlog 100 Unit/Ml 10 Ml Vial) 20 unit SUBCUT BEDTIME [facility] Insulin Human Lispro (Insulin Lispro 100 Unit/Ml 3 Ml Vial) 0 unit SUBCUT QIDACHS [facility]; Protocol Last Admin: 05/13/24 13:12 Dose: Not Given Isosorbide Mononitrate (Isosorbide Mononitrate 60 Mg Tab.Er.24h) 60 mg PO DAILY [facility]; Protocol Magnesium Hydroxide (Milk Of Magnesia 30 Ml Oral.Susp) 30 ml PO DAILY PRN PRN Reason: Constipation Melatonin (Melatonin 3 Mg Tablet) 6 mg PO BEDTIME PRN PRN Reason: Insomnia Nicotine (Nicotine 14 Mg Patch.Td24) 14 mg TRANSDERMA DAILY [facility] Pharmacy Consult (Consult Rx Vancomycin Dosing) 1 each MISCELLANE DAILY PRN PRN Reason: Consult order Sodium Chloride (0.9 % Sodium Chloride Flush 3 Ml Syringe) 3 ml IVFLUSH QSHIFT [facility] Last Admin: 05/13/24 09:36 Dose: 3 ml Sodium Zirconium Cyclosilicate (Sodium Zirconium Cyclosilicate 10 Gm Powd.Pack) 10 gm PO DAILY [facility] Home Medications ?Medication ?Instructions ?Recorded ?Confirmed ?Last Taken ?Type amlodipine 10 mg tablet 10 mg PO DAILY 03/01/24 05/13/24 05/11/24 History calcitriol 0.5 mcg capsule 1 mcg PO DIRECTED 05/12/24 05/13/24 Unknown History carvedilol 12.5 mg tablet 12.5 mg PO BID 05/12/24 05/13/24 05/11/24 History ergocalciferol (vitamin D2) 1,250 1,250 mcg PO SA 05/12/24 05/13/24 05/07/24 History mcg (50,000 unit) capsule (Vitamin D2) gabapentin 100 mg capsule 100 mg PO DAILY 05/12/24 05/13/24 05/11/24 History insulin aspart U-100 100 unit/mL 8 unit subcut TIDAC 05/12/24 05/13/24 05/11/24 History (3 mL) subcutaneous pen insulin glargine 100 unit/mL (3 20 unit subcut BEDTIME 05/12/24 05/13/24 05/11/24 History mL) subcutaneous pen (Lantus Solostar U-100 Insulin) isosorbide mononitrate 30 mg 60 mg PO DAILY 05/12/24 05/13/24 05/11/24 History tablet,extended release 24 hr sodium zirconium cyclosilicate 10 10 g PO DAILY 05/12/24 05/13/24 05/11/24 History gram oral powder packet (Lokelma) tirzepatide 7.5 mg/0.5 mL 7.5 mg subcut MO 05/12/24 05/13/24 05/02/24 History subcutaneous pen injector (Mounjaro) atorvastatin 40 mg tablet 40 mg PO BEDTIME 05/13/24 05/13/24 05/11/24 History Physical Exam Vital Signs: Last Vital Signs Temp 98.1 F 05/13/24 12:00 Pulse 85 05/13/24 12:00 Resp 18 05/13/24 12:00 BP 156/78 H 05/13/24 12:00 Pulse Ox 95 05/13/24 12:00 O2 Del Method Room Air 05/13/24 12:00 BMI result Body Mass Index 23.1 Const General: comfortable and no acute distress Orientation/consciousness: patient oriented x3 HEENT Head: Yes normocephalic Mouth: Normal oral and palatal mucosa present Eyes EOM: EOMs intact bilaterally Neck Neck: Yes supple Resp Auscultation: clear to auscultation bilaterally Cardio Jugular venous distension: no JVD Rate: regular rate GI Palpation (GI): Soft to palpation Auscultation: normal bowel sounds Skin General skin exam: no rashes or lesions noted Neuro General: patient oriented x3 and moves all extremities Results Lab Results 05/13/24 06:55 05/13/24 06:55 Lab results: Chemistry 05/12/24 05/13/24 11:00 06:55 Sodium 136 140 Potassium 4.4 4.5 Carbon Dioxide 26 24 BUN 63 H 70 H Creatinine 6.79 H* 7.86 H* Calcium 9.0 D 8.6 Hematology 05/12/24 05/13/24 11:00 06:55 WBC 12.1 H 11.1 H Hgb 9.6 L 8.7 L Plt Count 381 D 326 Urinalysis 05/12/24 18:08 Urine Color Yellow Urine Appearance Clear Urine pH 6.5 Ur Specific [place] 1.020 Urine Protein >=1000 (4+) H Urine Glucose (UA) 100 H Urine Ketones Trace Urine Blood Moderate (2+) H Urine Nitrite Negative Ur Leukocyte Esterase Negative Urine RBC 11-20 H Urine WBC 0-5 Ur Squamous Epith Cells 0-2 Hyaline Casts 3-5 Assessment and Plan (1) ESRD on hemodialysis: Status: Acute Plan On Home HD ( Dr Del Valle) ; Shall dialyze today Shall keep him on MWF during inpatient stay Has a functioning permcath Renal Diet; Phos binders with meals Procrit 10608 U once a week Vancomycin post HD ; C/W rest of mgt Shall continue to closely F/U Procedures Date of Service Date of Service: 05/13/24
--- NOTE | 2024-05-13 15:14 | P.CNID_ITS ---
History of Present Illness Data of Consult Service Date: 05/13/24 Requesting physician: Daniel Mckinley Primary Care Provider: Riya Olmos MD [facility] Reason for consult: right foot erythema laterally He presents with right lateral foot redness He has no fever or chills. Symptoms present for a week. He has had amputation toes 1-4. Review of Systems 2 Review of Systems: Yes all other systems are reviewed and are negative [facility] Past Medical History Medical History (Updated 05/13/24 @ 15:17 by Marta Benson MD) Cellulitis of right foot Intermittent lightheadedness History of CVA with residual deficit Left cervical lymphadenopathy Obesity (BMI 30-39.9) Normocytic normochromic anemia COPD (chronic obstructive pulmonary disease) Cigarette smoker Smoker unmotivated to quit RODGER (obstructive sleep apnea) Generalized anxiety disorder 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 Essential hypertension Allergic rhinitis Mixed dyslipidemia Amputation, toe, traumatic Vitamin D deficiency Diabetes mellitus with neuropathy Diabetes mellitus with hyperglycemia, with long-term current use of insulin Osteoarthritis Fibromyalgia Diabetic peripheral angiopathy Spondylosis of cervical spine Diabetic neurogenic arthropathy Family History Family History Father HTN (hypertension) Diabetes Mental health disorder Mother HTN (hypertension) Brother Stroke Family history: reviewed and not pertinent Surgical History Surgical History History of foot surgery Social History Social History Household Members: Spouse and Children Housing: Apartment Alcohol intake: never Patient Tobacco Use Status: Current everyday Tobacco user Cigarettes Per Day: 3 Years Smoked: 36 Smoked in Last 30 Days: No e-Cigarette/Vaping Use: Never Used Use of substances other than those prescribed or required for medical reasons: No Advance Directives: No Advance Directives Information Provided: Yes Do you have a plan to hurt others: No Plan Nutrition Risks: No Nutritional Risk Current occupational status: disabled Cognitive needs: No Hearing needs: No Vision needs: No Meds Allergies Allergy/AdvReac Type Severity Reaction Status Date / Time No Known Allergies Allergy Verified 05/12/24 10:45 Active Medications: Current Medications Acetaminophen (Acetaminophen 325 Mg Tablet) 650 mg PO Q6H PRN PRN Reason: Pain, Mild 1-3,fever,headache Amlodipine Besylate (Amlodipine Besylate 10 Mg Tablet) 10 mg PO DAILY [facility]; Protocol Last Admin: 05/13/24 09:36 Dose: 10 mg Aspirin (Aspirin 81 Mg Tab.Chew) 81 mg PO DAILY [facility] Last Admin: 05/13/24 10:10 Dose: 81 mg Atorvastatin Calcium (Atorvastatin Calcium 40 Mg Tablet) 40 mg PO BEDTIME [facility] Last Admin: 05/12/24 22:43 Dose: 40 mg Calcitriol (Calcitriol 0.25 Mcg Capsule) 1 mcg PO MoTuThFr [facility] Calcium Carbonate (Calcium Carbonate 750 Mg Tab.Chew) 750 mg PO Q4H PRN PRN Reason: Heartburn Carvedilol (Carvedilol 12.5 Mg Tablet) 12.5 mg PO BID [facility]; Protocol Dextrose (Dextrose 50 % 25 Gm/50 Ml Syringe) 25 gm IVPUSH Q15M PRN; Protocol PRN Reason: per Hypoglycemia Standing Ord. Ergocalciferol (Ergocalciferol (Vitamin D2) 1,250 Mcg Capsule) 1,[address] [facility] Fluticasone/Vilanterol (Fluticasone/Vilanterol 200/25 Blst.W.Dev) 1 puff INHALE RDAILY [facility] Last Admin: 05/13/24 14:41 Dose: Not Given Furosemide (Furosemide 40 Mg Tablet) 80 mg PO DAILY [facility]; Protocol Gabapentin (Gabapentin 100 Mg Capsule) 100 mg PO DAILY [facility] Glucose (Glucose Gel 15 Gm Gel..Gram.) 15 gm PO Q15M PRN; Protocol PRN Reason: per Hypoglycemia Standing Ord. Heparin Sodium (Porcine) (Heparin Sodium,Porcine 5,000 Unit/Ml Vial) 5,000 unit SUBCUT Q8H [facility] Last Admin: 05/13/24 09:36 Dose: 5,000 unit Heparin Sodium (Porcine) (Heparin Sodium,Porcine 5,000 Unit/Ml Vial) 5,000 unit INTRACATH MOWEFR@1645 [facility] Hydralazine HCl (Hydralazine Hcl 10 Mg Tablet) 10 mg PO TID [facility]; Protocol Last Admin: 05/13/24 09:35 Dose: 10 mg Vancomycin HCl 1,000 mg/ (Sodium Chloride) 270 mls @ 270 mls/hr IV Q24H [facility] Piperacillin Sod/Tazobactam (Sod 2.25 gm/ Sodium Chloride) 50 mls @ 100 mls/hr IV Q8H [facility] Last Infusion: 05/13/24 13:12 Dose: Infused Insulin Glargine (Insulin Glargine,Hum.Rec.Anlog 100 Unit/Ml 10 Ml Vial) 20 unit SUBCUT BEDTIME [facility] Insulin Human Lispro (Insulin Lispro 100 Unit/Ml 3 Ml Vial) 0 unit SUBCUT QIDACHS [facility]; Protocol Last Admin: 05/13/24 13:12 Dose: Not Given Isosorbide Mononitrate (Isosorbide Mononitrate 60 Mg Tab.Er.24h) 60 mg PO DAILY [facility]; Protocol Magnesium Hydroxide (Milk Of Magnesia 30 Ml Oral.Susp) 30 ml PO DAILY PRN PRN Reason: Constipation Melatonin (Melatonin 3 Mg Tablet) 6 mg PO BEDTIME PRN PRN Reason: Insomnia Nicotine (Nicotine 14 Mg Patch.Td24) 14 mg TRANSDERMA DAILY [facility] Pharmacy Consult (Consult Rx Vancomycin Dosing) 1 each MISCELLANE DAILY PRN PRN Reason: Consult order Sodium Chloride (0.9 % Sodium Chloride Flush 3 Ml Syringe) 3 ml IVFLUSH QSHIFT [facility] Last Admin: 05/13/24 09:36 Dose: 3 ml Sodium Zirconium Cyclosilicate (Sodium Zirconium Cyclosilicate 10 Gm Powd.Pack) 10 gm PO DAILY [facility] Home Medications ?Medication ?Instructions ?Recorded ?Confirmed ?Last Taken ?Type amlodipine 10 mg tablet 10 mg PO DAILY 03/01/24 05/13/24 05/11/24 History calcitriol 0.5 mcg capsule 1 mcg PO DIRECTED 05/12/24 05/13/24 Unknown History carvedilol 12.5 mg tablet 12.5 mg PO BID 05/12/24 05/13/24 05/11/24 History ergocalciferol (vitamin D2) 1,250 1,250 mcg PO SA 05/12/24 05/13/24 05/07/24 History mcg (50,000 unit) capsule (Vitamin D2) gabapentin 100 mg capsule 100 mg PO DAILY 05/12/24 05/13/24 05/11/24 History insulin aspart U-100 100 unit/mL 8 unit subcut TIDAC 05/12/24 05/13/24 05/11/24 History (3 mL) subcutaneous pen insulin glargine 100 unit/mL (3 20 unit subcut BEDTIME 05/12/24 05/13/24 05/11/24 History mL) subcutaneous pen (Lantus Solostar U-100 Insulin) isosorbide mononitrate 30 mg 60 mg PO DAILY 05/12/24 05/13/24 05/11/24 History tablet,extended release 24 hr sodium zirconium cyclosilicate 10 10 g PO DAILY 05/12/24 05/13/24 05/11/24 History gram oral powder packet (Lokelma) tirzepatide 7.5 mg/0.5 mL 7.5 mg subcut MO 05/12/24 05/13/24 05/02/24 History subcutaneous pen injector (Mounjaro) atorvastatin 40 mg tablet 40 mg PO BEDTIME 05/13/24 05/13/24 05/11/24 History Physical Exam 2 Vital Signs: Vital Signs: Last Vital Signs Temp 98.1 F 05/13/24 12:00 Pulse 85 05/13/24 12:00 Resp 18 05/13/24 12:00 BP 156/78 H 05/13/24 12:00 Pulse Ox 95 05/13/24 12:00 O2 Del Method Room Air 05/13/24 12:00 BMI result Body Mass Index 23.1 Const: General: cooperative HEENT: Head: Yes normal to inspection Face and sinus: Yes normal facial exam Mouth: Normal oral and palatal mucosa present Teeth and gingiva: d entition normal Eyes: General: appearance normal, both eyes and all related structures P upils: Equal, round and reactive pupils present Resp: Effort & Inspection: normal respiratory effort Cardio: Rate: regular rate Rhythm: regular rhythm GI: Palpation (GI): Soft to palpation and nontender : General: Yes no CVA tenderness Back/Spine/Pelvis: Back: no CVA tenderness Skin: General skin exam: no rashes or lesions noted Neuro: Other: neuropathy feet Cranial nerves: Yes Equal, round and reactive pupils present Extrem: Other: lateral right cellulitis foot Psych: Appearance: grossly normal Results Labs 05/13/24 06:55 05/13/24 06:55 Labs: Short CBC 05/13/24 Range/Units 06:55 WBC 11.1 H (4.8-10.8) X10*3/uL Hgb 8.7 L (14.0-18.0) g/dl Hct 27.4 L (42.0-52.0) % Plt Count 326 (160-400) X10*3/uL BMP 05/13/24 06:55 Sodium 140 Potassium 4.5 Chloride 100 Carbon Dioxide 24 BUN 70 H Creatinine 7.86 H* Calcium 8.6 Urine 05/12/24 Range/Units 18:08 Urine Color Yellow Urine Appearance Clear Urine pH 6.5 (5.0-9.0) Ur Specific [place] 1.020 (1.005-1.025) Urine Protein >=1000 (4+) H (Neg-Trace) mg/dL Urine Glucose (UA) 100 H (Negative) mg/dL Microbiology Microbiology Results: Microbiology 05/12/24 11:00 Blood - Venous Blood Culture - Preliminary No growth after 24 hours. 05/12/24 11:00 Blood - Venous Blood Culture - Preliminary No growth after 24 hours. Assessment and Plan (1) ESRD on hemodialysis: Status: Acute (2) Cellulitis of right foot: Status: Acute Plan Right foot shows some erythema laterally and XR has been negative. Continue Zosyn and Vancomycin until improved and then possible po Doxycycline Await cultures blood. Foot CT scan may be helpful evaluate OM.
[2024-05-13] MEDS: calcitrioL 0.25 MCG CAPSULE 1 MCG PO (17:47)
--- NOTE | 2024-05-13 17:53 | HO.SKINPHOTO ---
Location:Right foot Category:open area Stage: Length: Width: Depth: cm Location: Category: Stage: Length: Width: Depth: cm Location: Category: Stage: Length: Width: Depth: cm Location: Category: Stage: Length: Width: Depth: cm Location: Category: Stage: Length: Width: Depth: cm Location: Category: Stage: Length: Width: Depth: cm
[2024-05-13] MEDS: Acetaminophen 325 MG TABLET 650 MG PO (18:14)
[2024-05-13 18:46] LABS: Vancomycin Random 18.3 mcg/mL (15-20)
[2024-05-13] MEDS: carvediloL 12.5 MG TABLET PO (22:18)
[2024-05-13] MEDS: diphenhydrAMINE HCL 25 MG CAPSULE PO (22:18)
[2024-05-13] MEDS: oxyCODONE HCl Immed Release 5 MG TABLET PO (22:18)
[2024-05-13] MEDS: Atorvastatin Calcium 40 MG TABLET PO (22:19)
[2024-05-13] MEDS: Insulin Glargine,Hum.rec.anlog 100 UNIT/ML 10 ML VIAL 20 UNIT SUBCUT (22:19)
[2024-05-14 02:01] LABS: Glucose, Whole Blood 128 mg/dL (60-115)
[2024-05-14 02:01] LABS: Glucose, Whole Blood 119 mg/dL (60-115)
[2024-05-14 02:01] LABS: Glucose, Whole Blood 132 mg/dL (60-115)
[2024-05-14 03:14] VITALS: BP 138/72; PULSE 83; RESP 17; TEMP 37.1; O2SAT 93
[2024-05-14] MEDS: Piperacillin Sodium/Tazobactam 2.25 GM in 0.9 % Sodium Chloride 50 ML IV (06:22)
[2024-05-14] MEDS: Heparin Sodium,Porcine 5,000 UNIT/ML VIAL 5000 UNIT SUBCUT (06:25)
[2024-05-14 06:53] LABS: Hematocrit 25.8 % (42.0-52.0); Hemoglobin 7.9 g/dl (14.0-18.0); Mean Corpuscular HGB Conc 30.6 g/dl (31.0-36.0); Mean Corpuscular Hemoglobin 27.1 pg (27.0-33.0); Mean Corpuscular Volume 88.4 fL (80.0-98.0); Platelet Count 314 X10*3/uL (160-400); Red Blood Count 2.92 X10*6/uL (4.60-5.80); Red Cell Distribution Width 13.2 % (11.0-16.0); White Blood Count 10.5 X10*3/uL (4.8-10.8)
[2024-05-14 07:27] LABS: Anion Gap 15 (12-20); Blood Urea Nitrogen 43 mg/dL (9-16); Calcium 8.6 mg/dL (8.4-10.2); Carbon Dioxide 29 mmol/L (22-29); Chloride 100 mmol/L (96-108); Creatinine Clr Calc Pharmacy 16.4; Estimated Glomerular Filt Rate 10; Glucose Random 98 mg/dL (60-115); Potassium 3.9 mmol/L (3.3-5.1); Sodium 140 mmol/L (135-145)
[2024-05-14 07:50] VITALS: BP 124/77; PULSE 92; RESP 16; TEMP 36.9; O2SAT 94
[2024-05-14] MEDS: amLODIPine Besylate 10 MG TABLET PO (08:11)
[2024-05-14] MEDS: Isosorbide Mononitrate 60 MG TAB.ER.24H PO (08:11)
[2024-05-14] MEDS: Furosemide 40 MG TABLET 80 MG PO (08:12)
[2024-05-14] MEDS: Gabapentin 100 MG CAPSULE PO (08:12)
[2024-05-14] MEDS: hydrALAZINE HCl 10 MG TABLET PO (08:12)
[2024-05-14] MEDS: carvediloL 12.5 MG TABLET PO (08:12)
[2024-05-14] MEDS: Sodium Zirconium Cyclosilicate 10 GM POWD.PACK PO (08:13)
[2024-05-14] MEDS: Aspirin 81 MG TAB.CHEW PO (08:13)
[2024-05-14] MEDS: 0.9 % Sodium Chloride Flush 3 ML SYRINGE IVFLUSH (08:17)
[2024-05-14 08:36] LABS: Glucose, Whole Blood 103 mg/dL (60-115)
--- NOTE | 2024-05-14 08:55 | P.DS_ITS ---
DS: Providers Provider Date of Service: 05/14/24 Date of admission: 05/12/24 19:53 Date of discharge: 05/14/24 Primary care physician: Riya Olmos MD Consults: 05/12/24 16:25 Consult to Infectious Diseases Routine Consulting Provider: [facility] Reason for consultation: cellulitis Consult to Nephrology Routine Consulting Provider: [facility] Reason for consultation: esrd 05/13/24 17:57 Consult to Wound Care Routine Reason for consultation: right foot open area Has provider been notified: No DS: Diagnosis Discharge Diagnosis (1) ESRD on hemodialysis: Status: Acute (2) Cellulitis of right foot: Status: Acute DS: Summary Hospital Course Hospital Course: from initial hpi: 53M PMH ESRD on HD, DM, history of cva, copd, mood disroder, htn, presented with fevers. Patient states that symptoms began about 2 weeks ago. Has been having right foot lateral erythema and pain. This has been associated with low-grade fevers as high as 100.8 on day of presentation. Patient having increased fatigue as well. Of note recently started hemodialysis via [facility]. In ED x- ray unremarkable. Afebrile. hospital course: Patient was admitted for right lower extremity cellulitis due to diabetes. Was treated with vancomycin and Zosyn to cover MRSA and drug resistant g negatives. Cultures were negative. Was seen by infectious disease who recommended doxycycline on discharge. Patient has erythema and pain improved he had no more fevers. Will be discharged on 5 more days of doxycycline. For end-stage renal disease was continued hemodialysis. Patient is transitioning to home hemodialysis. For hypertension continued on carvedilol, amlodipine, hydralazine, Imdur. For diabetes continue on insulin. For history of CVA continued on aspirin and statin. For COPD remained stable. Patient is feeling better will be discharged home. Time Attestation Discharge Coordination Time (in mins): 34 Quality: Safe Use of Opioids Does Pt have an Active Cancer Diagnosis on the Problem List?: No Quality: Stroke Does the patient have a stroke diagnosis?: No Physical Exam Vital Signs: Vital Signs: Last Vital Signs Temp 98.5 F 05/14/24 07:50 Pulse 92 05/14/24 07:50 Resp 16 05/14/24 07:50 BP 124/77 05/14/24 07:50 Pulse Ox 94 03/29/25 07:50 O2 Del Method Room Air 05/14/24 07:50 BMI result Body Mass Index 23.1 Erythema, warmth, tenderness over right lateral foot resolved DS: Data Data Completed and Pending Labs on day of discharge: Laboratory Results - last 24 hr 05/13/24 05/13/24 05/13/24 12:07 17:22 18:13 WBC RBC Hgb Hct MCV MCH MCHC RDW Plt Count MPV Absolute Nucleated RBC Nucleated RBC % (auto) Sodium Potassium Chloride Carbon Dioxide Anion Gap BUN Creatinine Estim Creat Clear Calc Estimated GFR POC Glucose 158 H 119 H 132 H Random Glucose Calcium Random Vancomycin 05/13/24 05/13/24 05/14/24 18:21 20:24 05:35 WBC 10.5 RBC 2.92 L Hgb 7.9 L Hct 25.8 L MCV 88.4 MCH 27.1 MCHC 30.6 L RDW 13.2 Plt Count 314 MPV 10.0 Absolute Nucleated RBC 0.000 Nucleated RBC % (auto) 0.0 Sodium 140 Potassium 3.9 Chloride 100 Carbon Dioxide 29 Anion Gap 15 BUN 43 H Creatinine 5.86 H* Estim Creat Clear Calc 16.4 Estimated GFR 10 POC Glucose 128 H Random Glucose 98 Calcium 8.6 Random Vancomycin 18.3 05/14/24 07:27 WBC RBC Hgb Hct MCV MCH MCHC RDW Plt Count MPV Absolute Nucleated RBC Nucleated RBC % (auto) Sodium Potassium Chloride Carbon Dioxide Anion Gap BUN Creatinine Estim Creat Clear Calc Estimated GFR POC Glucose 103 Random Glucose Calcium Random Vancomycin Preliminary micro results at discharge 05/12/24 15:47 Blood Culture - Preliminary Blood - Central Line No growth after 24 hours. 05/12/24 11:00 Blood Culture - Preliminary Blood - Venous No growth after 24 hours. 05/12/24 11:00 Blood Culture - Preliminary Blood - Venous No growth after 24 hours. Discharge Plan Discharge Anticipated Discharge Date/Time: 05/14/24 08:53 Patient Disposition: Home, Self-Care Discharge Diagnosis: cellulitis Referrals: Riya Olmos MD [Primary Care Provider] - 1 Week Discharge Medications: New doxycycline hyclate 100 mg capsule 100 mg PO BID Qty: 10 0RF Continued (DME) insulin syringe-needle U-100 [Comfort EZ Insulin Syringe] 1 mL 31 gauge x 5/16 syringe See Rx Instructions .ROUTE .COMPLEX Qty: 100 4RF Dose Instruction: USE WITH insulin two (2) times a day Rx Instructions: USE WITH insulin two (2) times a day (DME) overbed table with wheels See Rx Instructions .Route .MEDSUPPLY Qty: 1 0RF Rx Instructions: As directed (DME) shower bar See Rx Instructions .Route .MEDSUPPLY Qty: 2 0RF Rx Instructions: As directed (DME) bed rail See Rx Instructions .Route .MEDSUPPLY Qty: 1 0RF Rx Instructions: As directed (DME) wheelchair ramp See Rx Instructions .Route .MEDSUPPLY Qty: 1 0RF Rx Instructions: Pt is wheelchair bound, needs a ramp to exit the front door and 6 steps to get to the sidewalk (DME) Grab bar Misc See Rx Instructions .Route Qty: 2 0RF Rx Instructions: one long bar 33-36 inches for inside the shower, one regular bar 18-24 inches for outside the shower budesonide-formoterol [Symbicort] 160-4.5 mcg/actuation HFA aerosol inhaler 2 puff PO Q12H Qty: 10.2 5RF (DME) wheelchair See Rx Instructions .Route .MEDSUPPLY Qty: 1 0RF Rx Instructions: As directed (DME) Dexcom G6 Sensor Device See Rx Instructions .Route Qty: 9 3RF Rx Instructions: As directed change every 10 days LEE (DME) pen needle, diabetic [Comfort EZ Pen [place]] 31 gauge x 5/16 needle See Rx Instructions .ROUTE .COMPLEX Qty: 1200 5RF Dose Instruction: USE DIRECTED 3 (THREE) TIMES A DAY Rx Instructions: USE DIRECTED 3 (THREE) TIMES A DAY omega-3 acid ethyl esters [Lovaza] 1 gram capsule 2 cap PO BID Qty: 360 1RF (DME) lancets [FreeStyle Lancets] 28 gauge misc See Rx Instructions .ROUTE .COMPLEX Qty: 100 5RF Dose Instruction: USE TO TEST FINGER STICK BLOOD SUGAR 3 (THREE) TIMES A DAY Rx Instructions: USE TO TEST FINGER STICK BLOOD SUGAR 3 (THREE) TIMES A DAY (DME) Dexcom G6 Transmitter Device See Rx Instructions .Route Qty: 1 0RF Rx Instructions: As directed nicotine 14 mg/24 hr patch 24 hour 1 patch transdermal DAILY 28 Days Qty: 28 2RF hydralazine 10 mg tablet 10 mg PO TID Qty: 90 2RF aspirin 81 mg tablet,delayed release (DR/EC) 81 mg PO DAILY Qty: 90 5RF carvedilol 12.5 mg tablet 12.5 mg PO BID isosorbide mononitrate 30 mg tablet extended release 24 hr 60 mg PO DAILY calcitriol 0.5 mcg capsule 1 mcg PO DIRECTED Rx Instructions: Taken on Dialysis days. gabapentin 100 mg capsule 100 mg PO DAILY ergocalciferol (vitamin D2) [Vitamin D2] 1,250 mcg (50,000 unit) capsule 1,250 mcg PO SA insulin aspart U-100 100 unit/mL (3 mL) insulin pen 8 unit subcut TIDAC insulin glargine [Lantus Solostar U-100 Insulin] 100 unit/mL (3 mL) insulin pen 20 unit subcut BEDTIME Lokelma 10 gram powder in packet 10 g PO DAILY Mounjaro 7.5 mg/0.5 mL pen injector 7.5 mg subcut MO atorvastatin 40 mg tablet 40 mg PO BEDTIME (DME) wheelchair See Rx Instructions .Route .MEDSUPPLY Qty: 1 0RF Rx Instructions: As directed (DME) Hand rails See Rx Instructions .Route .MEDSUPPLY Qty: 3 0RF Rx Instructions: As directed (DME) Shower seat See Rx Instructions .Route .MEDSUPPLY Qty: 1 0RF Rx Instructions: As directed ipratropium-albuterol 0.5 mg-3 mg(2.5 mg base)/3 mL solution for nebulization 3 ml inhalation Q6-8H PRN (Reason: SEVERE copd wheezing) 30 Days Qty: 360 2RF amlodipine 10 mg tablet 10 mg PO DAILY furosemide 80 mg tablet 80 mg PO DAILY Qty: 30 0RF Discharge Orders: Discharge Order (Routine); Ordered 05/14/24 Ordered By: Daniel Mckinley Diet: Advance to usual diet Activity on Discharge: As tolerated Stand Alone Forms: Patient Portal Discharge page Print Language: German Care Plan Goals: Recovery Health Concerns: Cellulitis Plan of Treatment: 5 more days of doxycycline Assessment: See above
[2024-05-14 09:38] VITALS: BP 90/53; PULSE 86; RESP 14; TEMP 36.4; O2SAT 93
--- NOTE | 2024-05-14 09:41 | MHC.CM.PN ---
IMM 05/14/24 Lives with Independent with all functional mobility. No DME DP home self care private transport. PCP Riya Olmos Patient is discharged today self care private transport
[2024-05-14 10:00] VITALS: BP 103/69; PULSE 85; RESP 18; O2SAT 95
--- NOTE | 2024-05-14 10:06 | PC.NURSE ---
Upon DC/transfer from bed to wheelchair Pt became lightheaded/dizzy. checked vitals and POC- 103/69, 89, 96% RA, POC 170. Pt states dizzy/lighthead resolved quickly. states feel it was from being in bed for a day, im ok, and ok to go . Elías notified and ok w Pt DC if pt feels ok. Pt was taken down in [place] @ 1000.
[2024-05-14 11:40] LABS: Glucose, Whole Blood 176 mg/dL (60-115)
== END 2024-05-14 10:01 | disposition home or self-care (01) | DRG 638 ==
LOC: HO.ED 12:16 → HO.EDOVER 19:58 → HO.S3 05-13 14:45
PROVIDERS: Registered Nurse Emergency; Admitting Provider Internal Medicine; Emergency Provider Emergency Medicine; PCP Internal Medicine; Visit Provider Internal Medicine
DX: E11.628 Type 2 diabetes mellitus with other skin complications (principal); I12.0 Hypertensive chronic kidney disease with stage 5 chronic kidney disease or end stage renal disease; L03.115 Cellulitis of right lower limb; F41.1 Generalized anxiety disorder; N18.6 End stage renal disease; E11.40 Type 2 diabetes mellitus with diabetic neuropathy, unspecified; E11.22 Type 2 diabetes mellitus with diabetic chronic kidney disease; Z99.2 Dependence on renal dialysis; J44.9 Chronic obstructive pulmonary disease, unspecified; Z86.73 Personal history of transient ischemic attack (TIA), and cerebral infarction without residual deficits; Z20.822 Contact with and (suspected) exposure to COVID-19; Z79.4 Long term (current) use of insulin; Z79.82 Long term (current) use of aspirin; Z79.85 Long-term (current) use of injectable non-insulin antidiabetic drugs; Z79.899 Other long term (current) drug therapy
CPT/HCPCS: 0241U; 36415; 71046; 73630; 80048; 80053; 80202; 81001; 82947; 83605; 83735; 85025; 85027; 85652; 86140; 87040; 90999; 93005; 99285; J1644; J2270; J2405; J2543; J3370

== ENCOUNTER → 2024-05-12 10:41 | Outpatient (BNV) | payer OTHER, SELFPAY | PROVIDERS: Emergency Provider Emergency Medicine; PCP Internal Medicine; Visit Provider Internal Medicine Cardiovascular Disease | DX: R06.09 Other forms of dyspnea (principal); R94.31 Abnormal electrocardiogram [ECG] [EKG] | CPT/HCPCS: 93010 ==

== ENCOUNTER → 2024-05-12 10:42 | Outpatient (BNV) | payer OTHER, SELFPAY | PROVIDERS: Emergency Provider Emergency Medicine; PCP Internal Medicine; Visit Provider Radiology Diagnostic Radiology | DX: R05.9 Cough, unspecified (principal); L08.9 Local infection of the skin and subcutaneous tissue, unspecified | CPT/HCPCS: 71046; 73630 ==

== ENCOUNTER → 2024-05-12 10:49 | Outpatient (BNV) | payer OTHER, SELFPAY | PROVIDERS: Emergency Provider Emergency Medicine; PCP Internal Medicine; Visit Provider Internal Medicine | DX: F41.1 Generalized anxiety disorder (principal) | CPT/HCPCS: 99233; 99239 ==

== ENCOUNTER → 2024-05-12 19:53 | Outpatient (BNV) | payer OTHER, SELFPAY | PROVIDERS: Admitting Provider Internal Medicine; Emergency Provider Emergency Medicine; PCP Internal Medicine; Visit Provider Internal Medicine | DX: N18.6 End stage renal disease (principal); Z99.2 Dependence on renal dialysis; L03.115 Cellulitis of right lower limb | CPT/HCPCS: 99222 ==

== ENCOUNTER → 2024-05-12 19:53 | Outpatient (BNV) | payer OTHER, SELFPAY | PROVIDERS: Admitting Provider Internal Medicine; Emergency Provider Emergency Medicine; PCP Internal Medicine; Visit Provider Internal Medicine Nephrology | DX: N18.6 End stage renal disease (principal); Z99.2 Dependence on renal dialysis | CPT/HCPCS: 99222 ==

== ENCOUNTER → 2024-05-17 | Outpatient (BNV) | payer OTHER, SELFPAY | PROVIDERS: PCP Internal Medicine; Visit Provider Internal Medicine Hypertension Specialist | DX: N18.6 End stage renal disease (principal) | CPT/HCPCS: 90962 ==

== ENCOUNTER 2024-06-01 09:48 | Outpatient (AMB) | payer OTHER, SELFPAY ==
[2024-06-01 10:01] VITALS: BP 170/79; PULSE 97; O2SAT 97; BMI 32.9
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
--- OUTSIDE RECORDS SUMMARY | 2024-06-01 11:03 | XMS_ITS ---
Author Organization [facility] Address [address] [place] [address] Care Team Providers Care Alignment Mechanic Name Role Phone Patient, Has No Pcp Or Ref Primary Care Provider Unavailable Transplant Episode Kidney Candidate [facility] ([place], [place]) - [facility] Evaluation began on 04/07/2024 Marked as Active on 04/07/2024 Kidney CoordinatorAnabell Arana RN Fax: N/A Email: N/A Scores Score Value Updated Exceptions/Reas ons CPRA Not available EPTS (Calc) 55 06/01/2024 Care Team Name Role Phone Fax Email Anabell Arana RN Kidney Coordinator [phone] N/A N/A Riya Olmos MD [facility] Primary Care Attending [phone] N/A N/A Cole Del Valle Referring Physician [phone] N/A Events Pre-Transplant Referred: 03/02/2024 Evaluation began: 04/07/2024 Dialysis History Dialysis History Start End Type Comments Center 03/03/2024 Home Hemodialysis [facility] [place] [facility] Information Center Phone Fax Address Pending sale to [facility] [phone] [address] [facility] [address]
--- OUTSIDE RECORDS SUMMARY | 2024-06-01 11:03 | XMS_ITS | Clinical Summary ---
Author Organization [facility] Address [address] [place] [address] Phone Care Team Providers Care Precision Machine Operator Name Role Phone Unavailable Primary Care Provider Unavailabl e Encounters Date Type Department Care Team Description 05/16/2024 Lab Requisition [facility] - Main Lab [address] [facility] [place] [address] Cole Del Valle MD Anemia, unspecified 04/15/2024 Telephone [facility] Cardiology [address] [place] [address] Provider, Not In System Medical Records from Last 3 Months Surgical History Surgery Date Site/Laterality Comments OTHER SURGICAL HISTORY 11/06/2016 Right PROCEDURE: ---- OTHER ----; COMMENT: 4 toe amp right foot BYPASS GRAFT PROCEDURE: AR AMPUTATION TOE METATARSOPHALANGEAL JOINT; COMMENT: rt foot Medical History Medical History Date Comments MRSA infection 04/27/2018 DX:MRSA infectio n; COMMENT: Recurrent boils Osteomyelitis ([facility] V24, [facility] V28) 11/17/2018 DX:Osteomyelitis ([facility]); COMM ENT: From right diabetic foot infection Essential hypertension 10/16/2017 DX:Essent ial hypertension PAD (peripheral artery disea se) ([facility] V24) 04/21/2018 DX:PAD (peripheral artery di sease) ([facility]) DM (diabetes mellitus), type 2, uncontrolled, periph vascular complic 06/10/2018 DX:DM (diabetes mellitus), type 2, uncontrolled, periph vascular complic Type 2 diabetes, uncontrolle d, with neuropathy 11/12/2017 DX:Type 2 diabetes, uncontro lled, with neuropathy 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 Polysomnogram: Date 10/06/2018; Wt 297#; BMI 38; SE 67%; SM 68%; REM 11%; RDI 8 (AHI 8), REM (RDI 25 - AHI 25), Central apneas 0; Obstructive apneas 0; Mixed apneas 0; hypopneas 35; RERAs 0; average oxygen saturation 95% (lowest 85% - without saturations <88% for 5% or more of study); PLMs 0. [facility] Polysomnogram treatment study. Da* Tobacco use disorder 10/16/2017 DX:Tobacco use disorder Moderate episode of recurren t major depressive disorder ([facility] V24, [facility] V28) 11/12/2017 DX:Moderate episode of recur rent major depressive disorder ([facility]) Fibromyalgia 01/10/2019 DX:Fibromyalgia; COMMENT: Follows with [facility] Toe amputation status, right 10/16/2017 DX: Toe amputation status, right Mild intermittent asthma 11/23/2018 DX:Mild intermittent asthma Abnormal nuclear stress test 01/10/2019 DX: Abnormal nuclear stress test; COMMENT: 10/2018 follows with cardiology. Nuclear stress showed possible basal lateral perfusion defect. Medication management for now Tendinitis of both rotator cuffs 12/14/2019 DX:Tendinitis of both rotator cuffs Family History Medical History Relation Name Comments Arthritis Father Diabetes Father Hypertension Mother stomach cancer Relation Name Status Comments Father Mother Alive Social History Tobacco Use Types Packs/Day Years Used Date Smoking Tobacco: Every Day Smokeless Tobacco: Never Alcohol Use Standard Drinks/Week Comments No 0 (1 standard drink = 0.6 oz pur e alcohol) Sex and Gender Information Value Date Recorded Sex Assigned at Not on file Legal Sex Male 1:54 PM EST Gender Identity Not on file Sexual Orientation Not on file Obstetrics History Plan of Treatment Health Maintenance Due Date Last Done Comments Diabetes: Annual GFR (Glomerular Filtration Rate) 1968 Diabetes: Annual Foot Exam 1978 Diabetes: Annual Retina Eye Exam 1978 Hepatitis B Vaccines (1 of 3 - 19+ 3-dose series) 10/11/1987 Zoster Vaccines (1 of 2) 2018 Pneumococcal Vaccine: 50+ Years (2 of 2 - PCV) 12/01/2018 12/01/2017 Pneumococcal Vaccine: Pediatrics (0 to 5 Years) and At-Risk Patients (6 to 64 Years) (2 of 2 - PCV) 12/01/2018 12/01/2017 Cholesterol Screening (Lipid Panel) 01/15/2022 Colorectal Cancer Screening: Stool Based Tests (FOBT/FIT) 01/15/2022 Depression Screening 01/15/2022 HIV Screening 01/15/2022 Hepatitis C Screening 01/15/2022 Social Influencers of Health Screening 01/15/2022 Diabetes: Annual Urine Albumin-Creatinine Ratio (uACR) 02/01/2022 Diabetes: Blood Sugar Contro l Test (HGBA1C) 02/01/2022 Hypertension/CHF/CAD Annual BMP Blood Test 02/01/2022 COVID-19 Vaccine ( - 2023-2 5 season) 2023 Influenza Vaccine (Season Ended) 2024 12/14/2019, 03/16/2019, 12/01/2017 DTaP,Tdap,and Td Vaccines (2 - Td or Tdap) 07/27/2028 07/27/2018 HIB Vaccines Aged Out No longer eligi ble based on patient's age to complete this topic HPV Vaccines Aged Out No longer eligi ble based on patient's age to complete this topic Hepatitis A Vaccines Aged Out No long er eligible based on patient's age to complete this topic IPV Vaccines Aged Out No longer eligi ble based on patient's age to complete this topic MMR Vaccines Aged Out No longer eligi ble based on patient's age to complete this topic Meningococcal ACWY Vaccine Aged Out N o longer eligible based on patient's age to complete this topic Meningococcal B Vaccine Aged Out No l onger eligible based on patient's age to complete this topic RSV Immunization Patients Under 20 months Aged Out No longer eligible b ased on patient's age to complete this topic Varicella Vaccines Aged Out No longer eligible based on patient's age to complete this topic Procedures Procedure Name Priority Date/Time Associated Diagnosis Comments HEMOGLOBIN STAT 05/16/2024 9:30 AM EDT Anemia, unspecified from Last 3 Months Results * (ABNORMAL) Hemoglobin (05/16/2024 9:30 AM EDT) Hemoglobin 8.1(L) 13.5 - 17.5 g/dL LAB HEMETOLOGY METHOD 05/16/2024 12:42 PM EDT [facility] Blood Venous blood specimen / Unknown 05/16/2024 9:30 AM EDT 05/16/2024 12:28 PM EDT Cole Del Valle MD LAB BLOOD ORDERABL ES Final Result [facility] [address] [place] [address], [place] [phone] from Last 3 Months Insurance [place]
--- OUTSIDE RECORDS SUMMARY | 2024-06-01 11:03 | XMS_ITS ---
Author Name [facility], [facility] Address [address] [place] [address] Phone [phone] Organization [facility] e, NA DOCUMENT DISCLAIMER Multiple document versions may exist, please be sure you review the latest version. The information in the [facility] Continuity of Care Document represents a summary of certain health and medical information. It may not contain the complete medical history for the patient and should be independently verified. The represented time in the document is Eastern Time. PROBLEMS Problem Code Status Onset Date Other disorders of phosphorus metabolism E83.39 Active May 26, 2024 Type 2 diabetes mellitus wit h other skin complications E11.628 Active May 19, 2024 Pain, unspecified R52 Active May 16, 2024 Cellulitis of right lower limb L03.115 Active May 12, 2024 Fever, unspecified R50.9 Active May 11, 2024 Encounter for immunization Z23 Active F ebruary 2024 Fluid overload, unspecified E87.70 Active March 14, 2024 Encounter for screening for respiratory tuberculosis Z 11.1 Active March 14, 2024 Iron deficiency anemia, unspecified D50.9 Activ e March 11, 2024 Secondary hyperparathyroidism of renal origin N25.81 Active March 11, 2024 End stage renal disease N18.6 Active Phillip painting 2024 Dependence on wheelchair Z99.3 Active Benjamin chantale 2024 Dependence on renal dialysis Z99.2 Active March 11, 2024 Acquired absence of other right toe(s) Z89.421 Ac tive March 11, 2024 Long-term (current) use of i njectable non-insulin antidiabetic drugs Z79.85 Active March 11, 2024 buttermaker continuous churn (current) use of aspirin Z79.82 Active March 11, 2024 snf (current) use of insulin Z79.4 Active March 11, 2024 Chronic kidney disease, stage 4 (severe) N18.4 Active March 11, 2024 Chronic obstructive pulmonary disease, unspecified J44 .9 Active March 11, 2024 Unspecified sequelae of cerebral infarction I69.30 Active March 11, 2024 Hypertensive heart and chron ic kidney disease without heart failure, with stage 1 through stage 4 chronic kidney disease, or unspecified chronic kidney disease I13.10 Active March 11, 2024 Nicotine dependence, cigarettes, uncomplicated F17.210 Active March 11, 2024 Mixed hyperlipidemia E78.2 Active March 11, 2024 Obesity, unspecified E66.9 Active March 11, 2024 Vitamin D deficiency, unspecified E55.9 Active March 11, 2024 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 E11.610 Active March 11, 2024 Type 2 diabetes mellitus wit h diabetic peripheral angiopathy without gangrene E11.51 Active March 11, 2024 Type 2 diabetes mellitus wit h diabetic neuropathy, unspecified E11.40 Active March 11, 2024 Type 2 diabetes mellitus wit h diabetic chronic kidney disease E11.22 Active March 11, 2024 Anemia in chronic kidney disease D63.1 Active March 11, 2024 ALLERGIES AND ADVERSE REACTIONS No Known Allergies SOCIAL HISTORY Tobacco Use Status Tobacco Type Unknown if ever consumed tobacco - Caregiver Characteristics No Information Available Characteristics of Home environment No Information Available Gender and Sex Information Gender Identity Sexual Orientation Male Heterosexual MEDICATIONS Prescribed Medications for Dialysis Treatments Medication Instructions Dosage Route Start Date End Date Status Acetaminophen PRN 650 mg Oral May 16, 2024 May 15, 2025 Active Heparin Sodium (Porcine) 1,000 Units/mL Catheter Lock Arterial Every Treatment 2000 units Arterial Red Port March 14, 2024 March 13, 2025 Active Heparin Sodium (Porcine) 1,000 Units/mL Catheter Lock Venous Every Treatment 2000 units Venous Blue Port March 14, 2024 March 13, 2025 Active Iron Sucrose (Venofer) 1X Week 50 mg Intravenous - push April 26, 2024 May 24, 2024 Discontinued Mircera Once 50 mcg Subcutaneous May 19, 2024 Discontinued Vitamin D (Calcitriol) Oral 3X Week 0.75 mcg Oral April 25, 2024 April 24, 2025 Discontinued Vitamin D (Calcitriol) Oral 3X Week 1 mcg Oral May 06, 2024 May 05, 2025 Discontinued Home Medications Medication Instructions Dosage Route Start Date End Date Status Aspirin Childrens 81 mg Take by mouth once a day 1 tablet ORAL March 14, 2024 Active atorvastatin 40 mg Take by mouth once a day 1 tablet ORAL March 14, 2024 Active budesonide-formot brodie 80-4.5 mcg/actuation Inhale using inhaler twice a day 2 puff INHALATION March 14, 2024 Active calcitriol 0.5 mcg three times a week 2 ORAL May 24, 2024 Active carvedilol 12.5 mg Take by mouth twice a day as directed 1 tablet ORAL March 25, 2024 Active doxycycline Unknown May 16, 2024 Active duloxetine 30 mg Take by mouth twice a day 1 capsule ORAL March 14, 2024 Active ergocalciferol (vitamin D2) 1,250 mcg (50,000 unit) Take by mouth once a week as directed 1 capsule ORAL March 18, 2024 September 15, 2024 Active furosemide 80 mg Take once a day 1 tablet ORAL Benjamin [id number] Active gabapentin 100 mg every night at bedtime 1 ORAL March 14, 2024 Active isosorbide mononitrate 30 mg once a day 2 ORAL March 14, 2024 Active Lantus U-100 Insulin 100 unit/mL every night at bedtime 24 unit SUBCUTANEOUS March 14, 2024 Active loratadine 10 mg Take by mouth once a day 1 tablet ORAL March 14, 2024 Active Mounjaro 7.5 mg/0.5 mL Inject subcutaneously once a week 7.5 mg SUBCUTANEOUS March 14, 2024 Active nortriptyline 50 mg every night at bedtime ORAL March 14, 2024 Active Novolog FlexPen U-100 Insulin 100 unit/mL (3 mL) Inject subcutaneously three times a day as directed 2 to 12 unit SUBCUTANEOUS March 14, 2024 Active omega 3-xif-jng-fish oil 1,000 (120-180) mg Take by mouth twice a day 2 capsule ORAL March 14, 2024 Active prazosin 1 mg Take by mouth every night at bedtime 1 capsule ORAL March 14, 2024 Active Sevelamer Carbonate Tablet 800 mg Take By Mouth Three times a day With Meals 2 Tablet By Mouth May 31, 2024 May 26, 2025 Active Trulicity 1.5 mg/0.5 mL Inject subcutaneously once a week 1 1/2 mg SUBCUTANEOUS March 14, 2024 Active Renvela 800 mg three times a day with meals 2 ORAL May 31, 2024 Discontinued VITAL SIGNS Weight Vital Sign Value Date / Time Estimated Dry Weight 114 kg May 30 11:59 PM Other Other Value Date / Time Height 188 cm March 11, 2024 12:00 AM Body Mass Index 32.25 kg/m2 May 26, 2024 1 1:42 AM LAB RESULTS Hematology Result Type Result Value Relevant Referen ce Range Interpretation Date Neutrophils 74.1 % 40.0 - 75.0 % - February ROBI 1.1 % 0.0 - 4.0 % - March 14 025 WBC (No Diff) 9.61 1000/mcL 4.80 - 10.80 1000/mcL - March 14, 2024 Lymphocytes 10.1 % 19.0 - 48.0 % Low February Monocytes 8.0 % 3.0 - 10.0 % - March 14, 2024 Eosinophil 5.7 % 0.0 - 7.0 % - March 14 025 Basophils 0.9 % 0.0 - 1.5 % - March 14 025 MCH 27.7 pg 27.0 - 31.0 pg - February MCHC 31.2 g/dL 30.0 - 36.0 g/dL - March 14, 2024 Retic HGB (CHr) 29.9 pg 25.4 - 31.8 pg - 2024 RDW 15.7 % 11.5 - 14.5 % High March 14, 2024 Hemoglobin x 3 30 % 42.0 - 54.0 % Low March 14, 2024 Platelets 294 1000/mcL 130 - 400 1000/mcL - 2024 Iron 39 mcg/dL 45 - 160 mcg/dL Low February 172024 UIBC/TIBC 138 mcg/dL 155 - 355 mcg/dL Low March 14, 2024 TIBC (Calc) 177 mcg/dL 185 - 515 mcg/dL Low March 14, 2024 Transferrin Sat. (Calc) 22 % 20 - 55 % - March 14, 2024 Ferritin 342 ng/mL 22 - 322 ng/mL High February TIBC (Calc) 204 mcg/dL 185 - 515 mcg/dL - 2024 Transferrin Sat. (Calc) 12 % 20 - 55 % Low March 21 Retic HGB (CHr) 28.1 pg 25.4 - 31.8 pg - 2024 Iron 24 mcg/dL 45 - 160 mcg/dL Low March 21, 2024 Hemoglobin x 3 27.3 % 42.0 - 54.0 % Low 2024 UIBC/TIBC 180 mcg/dL 155 - 355 mcg/dL - March 21, 2024 Ferritin 272 ng/mL 22 - 322 ng/mL - March Hemoglobin x 3 28.5 % 42.0 - 54.0 % Low Februar y 2024 UIBC/TIBC 165 mcg/dL 155 - 355 mcg/dL - April TIBC (Calc) 233 mcg/dL 185 - 515 mcg/dL - April Iron 68 mcg/dL 45 - 160 mcg/dL - April 19, 2024 Transferrin Sat. (Calc) 29 % 20 - 55 % - April 19, 2024 Ferritin 415 ng/mL 22 - 322 ng/mL High April 19, 2024 Hemoglobin x 3 31.2 % 42.0 - 54.0 % Low April Retic HGB (CHr) 31.0 pg 25.4 - 31.8 pg - April 19, 2024 HGB 8.1 No Reference Ran ge Provided Abnormal May 16, 2024 Ferritin 1253 ng/mL 22 - 322 ng/mL High May 17, 2024 RDW 13.3 % 11.5 - 14.5 % - May 17, 025 MCHC 31.5 g/dL 30.0 - 36.0 g/dL - May MCH 27.9 pg 27.0 - 31.0 pg - May 17, 2024 Retic HGB (CHr) 26.8 pg 25.4 - 31.8 pg - May 17, 2024 TIBC (Calc) 158 mcg/dL 185 - 515 mcg/dL Low May Platelets 362 1000/mcL 130 - 400 1000/mcL - Apri l 2024 Transferrin Sat. (Calc) 19 % 20 - 55 % Low May 17, 2024 Hemoglobin x 3 25.2 % 42.0 - 54.0 % Low May Iron 30 mcg/dL 45 - 160 mcg/dL Low May 17, 2024 HGB 8.4 g/dL 14.0 - 18.0 g/dL Low May UIBC/TIBC 128 mcg/dL 155 - 355 mcg/dL Low May Lymphocytes 8.2 % 19.0 - 48.0 % Low May 17, 2024 Neutrophils 80.0 % 40.0 - 75.0 % High May 17, 2024 ROBI 2.0 % 0.0 - 4.0 % - May 17 5 Basophils 0.3 % 0.0 - 1.5 % - May 17 5 Eosinophil 4.9 % 0.0 - 7.0 % - May 17 5 Monocytes 4.6 % 3.0 - 10.0 % - May 17 HCT 26.7 % 42.0 - 52.0 % Low May 17 RBC 3.02 mill/mcL 4.70 - 6.10 mill/mcL Low May 17, 2024 WBC (No Diff) 12.70 1000/mcL 4.80 - 10.80 1000/mcL High May 17, 2024 Metabolic/Renal Result Type Result Value Relevant Referen ce Range Interpretation Date BUN, Post 12 mg/dL 6 - 19 mg/dL - March 14, 2024 URR, Calc 56 % 65 - 80 % Low March 14 25 BUN 27 mg/dL 6 - 19 mg/dL High March 14, 2024 Creatinine, Serum 5.52 mg/dL 0.60 - 1.30 mg/dL High March 14, 2024 BUN/Creat Ratio 4.9 10.0 - 20.0 Low March 14, 2024 Sodium 140 mEq/L 136 - 145 mEq/L - February 172024 Potassium 3.8 mEq/L 3.5 - 5.1 mEq/L - February 172024 Chloride 102 mEq/L 96 - 108 mEq/L - February Bicarbonate 27 mEq/L 22 - 29 mEq/L - February BUN, Post 22 mg/dL 6 - 19 mg/dL High March 21, 2024 URR, Calc 53 % 65 - 80 % Low March 21 025 Urea Nitrogen, Urine, Timed 264 mg/dL No Reference Range Provided - March 21, 2024 Bicarbonate 26 mEq/L 22 - 29 mEq/L - March Potassium 4.2 mEq/L 3.5 - 5.1 mEq/L - March 21, 2024 Chloride 102 mEq/L 96 - 108 mEq/L - March Sodium 139 mEq/L 136 - 145 mEq/L - March 21, 2024 Creatinine Clearance, Urine 6.6 mL/min 94.0 - 122.0 mL/min Low March 21, 2024 BUN 47 mg/dL 6 - 19 mg/dL High March 21, 2024 Creatinine, Serum 6.56 mg/dL 0.60 - 1.30 mg/dL High March 21, 2024 BUN/Creat Ratio 7.2 10.0 - 20.0 Low March 21, 2024 Potassium 4.2 mEq/L 3.5 - 5.1 mEq/L - April 05, 2024 URR, Calc 45 % 65 - 80 % Low April 19, 2024 BUN, Post 41 mg/dL 6 - 19 mg/dL High April 19 Chloride 101 mEq/L 96 - 108 mEq/L - April 19, 2024 Bicarbonate 27 mEq/L 22 - 29 mEq/L - April 19, 2024 Sodium 138 mEq/L 136 - 145 mEq/L - April 19, 2024 Potassium 4.4 mEq/L 3.5 - 5.1 mEq/L - April 19, 2024 Creatinine, Serum 5.93 mg/dL 0.60 - 1.30 mg/dL High April 19, 2024 BUN/Creat Ratio 12.5 10.0 - 20.0 - April BUN 74 mg/dL 6 - 19 mg/dL High April 19 Hemoglobin A1c 6.5 % 4.8 - 5.9 % High April 19, 2024 Potassium 4.7 mEq/L 3.5 - 5.1 mEq/L - May 03, 2024 Hemoglobin A1c 7.6 % 4.8 - 5.9 % High May 17, 2024 URR, Calc 43 % 65 - 80 % Low May 17, 2024 BUN, Post 34 mg/dL 6 - 19 mg/dL High May 17 BUN/Creat Ratio 6.2 10.0 - 20.0 Low May Sodium 138 mEq/L 136 - 145 mEq/L - May 17, 2024 BUN 60 mg/dL 6 - 19 mg/dL High May 17 Creatinine, Serum 9.65 mg/dL 0.60 - 1.30 mg/dL High May 17, 2024 Bicarbonate 24 mEq/L 22 - 29 mEq/L - May 17, 2024 Potassium 4.0 mEq/L 3.5 - 5.1 mEq/L - May 17, 2024 Chloride 95 mEq/L 96 - 108 mEq/L Low May 17, 2024 HD Adequacy Result Type Result Value Relevant Referen ce Range Interpretation Date wstdKt/V, residual 0.0 No Reference Range Provided - March 14, 2024 Simple Kt/V (Home HD Only) 0.82 No Reference Range Provided Normal March 14, 2024 spKt/V Daugirdas II (HHD) 0.89 No Reference Range Provided Normal March 14, 2024 wstdKt/V without residual 2.4 No Reference Range Provided - March 14, 2024 wstdKt/V 2.4 No Reference Ran ge Provided - March 14, 2024 spKt/V Daugirdas II (HHD) 0.83 No Reference Range Provided Normal March 21, 2024 wstdKt/V, residual 0.6 No Reference Range Provided - March 21, 2024 wstdKt/V 2.9 No Reference Ran ge Provided - March 21, 2024 wstdKt/V without residual 2.3 No Reference Range Provided - March 21, 2024 Simple Kt/V (Home HD Only) 0.76 No Reference Range Provided Normal March 21, 2024 Simple Kt/V (Home HD Only) 0.60 No Reference Range Provided Normal April 19, 2024 spKt/V Daugirdas II (HHD) 0.66 No Reference Range Provided Normal April 19, 2024 wstdKt/V without residual 2.0 No Reference Range Provided - April 19, 2024 wstdKt/V 2.6 No Reference Ran ge Provided - April 19, 2024 wstdKt/V, residual 0.6 No Reference Range Provided - April 19, 2024 wstdKt/V, residual 0.6 No Reference Range Provided - May 17, 2024 wstdKt/V without residual 1.9 No Reference Range Provided - May 17, 2024 Simple Kt/V (Home HD Only) 0.56 No Reference Range Provided Normal May 17, 2024 spKt/V Daugirdas II (HHD) 0.61 No Reference Range Provided Normal May 17, 2024 wstdKt/V 2.5 No Reference Ran ge Provided - May 17, 2024 Bone/Mineral Result Type Result Value Relevant Referen ce Range Interpretation Date PTH-Intact, Plasma 552 pg/mL 16 - 80 pg/mL High Benjamin uary 2024 Alkaline Phosphatase 55 U/L 40 - 129 U/L - Bakari rocha 2024 Calcium, Total 7.8 mg/dL 8.4 - 10.2 mg/dL Low Phillip garima 2024 Phosphorus 4.0 mg/dL 2.6 - 4.5 mg/dL - February 172024 Ca x P Product 31 0 - 54 - February Vitamin D 25 Hydroxy 14.2 ng/mL 30.0 - 100.0 ng/mL Low March 14, 2024 Corrected Ca x P Product 35 0 - 54 - March 21 Calcium, Total 7.4 mg/dL 8.4 - 10.2 mg/dL Low Febr uary 2024 Phosphorus 4.2 mg/dL 2.6 - 4.5 mg/dL - March 21, 2024 Ca x P Product 31 0 - - March Alkaline Phosphatase 54 U/L 40 - 129 U/L - Fe bruary 2024 PTH-Intact, Plasma 473 pg/mL 16 - 80 pg/mL High Feb ruary 2024 Phosphorus 5.3 mg/dL 2.6 - 4.5 mg/dL High April 05, 2024 Calcium, Total 8.1 mg/dL 8.4 - 10.2 mg/dL Low Ishaan h 2024 Corrected Ca x P Product 40 0 - 54 - April 19, 2024 Alkaline Phosphatase 62 U/L 40 - 129 U/L - [facility] 2024 Phosphorus 4.8 mg/dL 2.6 - 4.5 mg/dL High April 19, 2024 Ca x P Product 39 0 - 54 - April 19, 2024 PTH-Intact, Plasma 569 pg/mL 16 - 80 pg/mL High Mar ch 2024 PTH-Intact, Plasma 477 pg/mL 16 - 80 pg/mL High Mar ch 2024 Ca x P Product 57 0 - 54 High May 03, 2024 Phosphorus 7.0 mg/dL 2.6 - 4.5 mg/dL High May 03, 2024 Calcium, Total 8.1 mg/dL 8.4 - 10.2 mg/dL Low Ishaan h 2024 PTH-Intact, Plasma 390 pg/mL 16 - 80 pg/mL High Apr il 2024 Corrected Ca x P Product 64 0 - 54 High May 17, 2024 Alkaline Phosphatase 56 U/L 40 - 129 U/L - Ap ril 2024 Phosphorus 7.8 mg/dL 2.6 - 4.5 mg/dL High May 17, 2024 Ca x P Product 59 0 - 54 High May 17, 2024 Calcium, Total 7.6 mg/dL 8.4 - 10.2 mg/dL Low Apri l 2024 Liver/Nutrition Result Type Result Value Relevant Reference Range Interpre tation SGPT (ALT) 9 U/L 7 - 52 U/L - March 14 Glucose 135 mg/dL 70 - 100 mg/dL High February Glucose 158 mg/dL 70 - 100 mg/dL High March SGPT (ALT) 7 U/L 7 - 52 U/L - March 21 Albumin (BCG) 2.9 g/dL 3.5 - 5.2 g/dL Low 2024 Albumin (BCG) 3.6 g/dL 3.5 - 5.2 g/dL - April SGPT (ALT) 6 U/L 7 - 52 U/L Low April 19, 2024 Glucose 180 mg/dL 70 - 100 mg/dL High April 19, 2024 Glucose 164 mg/dL 70 - 100 mg/dL High May 17, 2024 SGPT (ALT) 5 U/L 7 - 52 U/L Low May 17, 2024 Albumin (BCG) 3.2 g/dL 3.5 - 5.2 g/dL Low May Lipid Result Type Result Value Relevant Referen ce Range Interpretation Date LDL, Direct 116 mg/dL 0 - 99 mg/dL High April 19 025 Cholesterol, Total 179 mg/dL 0 - 199 mg/dL - Apr HDL 25 mg/dL No Reference Ran ge Provided - April 19, 2024 HDL 21 mg/dL No Reference Ran ge Provided - May 17, 2024 LDL, Direct 73 mg/dL 0 - 99 mg/dL - May 17 025 Cholesterol, Total 129 mg/dL 0 - 199 mg/dL - May Trace Elements Result Type Result Value Relevant Reference Range Interpre tation Aluminum < 5 mcg/L 0 - 10 mcg/L - March 14, 2024 Peritoneal Dialysis Testing Result Type Result Value Relevant Referen ce Range Interpretation Date Total Urea Nitrogen, Urine 1.8 g/24 hr 12.0 - 20.0 g/24 hr Low March 21, 2024 Urea Clearance, Urine 2.7 mL/min 64.0 - 99.0 mL/min Low March 21, 2024 Creatinine, Urine 124.5 mg/dL No Reference R brie Provided - March 21, 2024 Total Creatinine, Urine 0.9 g/24 hr 0.7 - 1.8 g/24 hr - March 21 Infectious Diseases Result Type Result Value Relevant Referen ce Range Interpretation Date Hep B core Ab Total (anti-HBc) Negative No Reference Range Provided - March 14, 2024 Hep B Surface Ab (anti-HBs) < 10 mIU/mL No Reference Range Provided - May 17, 2024 Hep B Surface Ag (HBsAg) Negative No Reference Range Provided - May 17, 2024 Microbiology-Culture, Blood Result Type Result Value Relevant Referen ce Range Interpretation Date Culture Result (Blood Culture) No Aerobic or Anaerobic Growth after 5 Days of Incubation. No Reference Range Provided - May 11, 2024 Microbiology-Culture, Blood 2nd Set Result Type Result Value Relevant Reference Range Interpretation Date Gram Stain 2 (Blood Culture) Gram Positive Cocci in Clusters Detected in Anaerobic Bottle Only No Reference Range Provided - May 11, 2024 Organism 1 (Blood Culture - 2nd Set) Staphylococcus aureus Based on CLSI guidelines, testing of all Staphylococcus isolates includes Penicillin, Oxacillin and screening with Cefoxitin. Since this isolate is resistant to Penicillin but susceptible to Oxacillin, it is considered susceptible to all B-lactamase stable Penicillins (Oxacillin/Nafcillin), including Cephems/Cephalosporins (Cefazolin), Carbapenems, B-lactam/B-lactamase inhibitor combinations. Therefore, further testing of Cephems (Cefazolin and Ceftazidime) is not advised. ANTIBIOTIC [TERRA ] SENSITIVITY PENICILLIN [>=0.5 ] R CLINDAMYCIN [<=0.25 ] S ERYTHROMYCIN [<=0.25 ] S GENTAMICIN [<=0.5 ] S LEVOFLOXACIN [0.25 ] S LINEZOLID [2 ] S MOXIFLOXACIN [<=0.25 ] S OXACILLIN [0.5 ] S RIFAMPIN [<=0.5 ] S TETRACYCLINE [<=1 ] S TRIMETHOPRIM/SULFA [<=10 ] S VANCOMYCIN [1 ] S No Reference Range Provided - May 11, 2024 Culture Result (Blood Culture - 2nd Set) Complete No Reference Range Provided - May 11, 2024 DIALYSIS PRESCRIPTION NxStage Hemodialysis Data Element Value Order Date/Time May 30, 2024 Frequency 4X Week Treatment Days Isabella Dialyzer/Cartridge CAR 172 Therapy Fluid (dialysate) 2.0 K 45 Lacta te Estimated Treatment Time 180 min Volume per Treatment (Liters) 50 L Dialysate Flow Rate 17 L/hr Maximum Flow Fraction (%) 200% Maximum Ultrafiltration Rate 10 ml/Kg/hr Blood Flow Rate (mL/min) 400 mL/min Estimated Dry Weight 114 kg Dialysis Access Hemodialysis-CV Cath eter-Tunneled, Chest, Right Subclavian TRANSPLANT WAITLIST STATUS No Information on Transplant Waitlist Status ADVANCE DIRECTIVES Directive Description Ordered By Effective Date Resuscitation status Full Code Cole Collazo At eya Mar 14, 2024 DIALYSIS TREATMENTS NxStage-HHD Date Pre-Treatment Vitals Post-Treatment Vitals Durat ion(hr) Exchanges BFR(mL/min) Cartridge Type Dialysate Dialysis Access Meds-entered by patient May 30, 2024 Weight 115.5 kg Weight 115.5 kg 2:55 1 of 400 CAR-172 2K 45 Lactate Blood Pressure-sitting 200/111 mmHg Blood Pressure-sitting 1 49/82 mmHg 2 of 400 Heart Rate 84 beats per minute Temperature 97.8 deg. F 3 of 400 Temperature 96.7 deg. F - - 4 of 10 400 - - - - 5 of 10 400 - - - - 6 of 400 - - - - 7 of 400 - - - - 8 of 400 - - - - 9 of 10 400 - - - - 10 of 10 - May 31, 2024 Weight 115.5 kg Blood Pressure-sitting 137/80 mmHg 2:48 1 of 31 400 CAR-172 2K 45 Lactate Hemodialysis-CV Catheter-Tunneled, Chest, Right Subclavian Heparin 0 Heparin 0 Blood Pressure-standing 180/95 mmHg Temperature 97.2 deg. F 2 of 31 400 Temperature 95.8 deg. F - - 3 of 31 400 - - - - 4 of 31 400 - - - - 5 of 31 400 - - - - 6 of 31 400 - - - - 7 of 31 400 - - - - 8 of 31 400 - - - - 9 of 400 - - - - 10 of 31 400 - - - - 11 of 31 400 - - - - 12 of 31 400 - - - - 13 of 31 400 - - - - 14 of 31 400 - - - - 15 of 31 400 - - - - 16 of 31 400 - - - - 17 of 31 400 - - - - 18 of 31 400 - - - - 19 of 31 400 - - - - 20 of 31 400 - - - - 21 of 31 296 - - - - 22 of 31 - - - - - 23 of 31 400 - - - - 24 of 31 400 - - - - 25 of 31 202 - - - - 26 of 31 - - - - - 27 of 31 400 - - - - 28 of 31 356 - - - - 29 of 31 - - - - - 30 of 31 - - - - - 31 of 31 -
--- OUTSIDE RECORDS SUMMARY | 2024-06-01 11:03 | XMS_ITS | Data Portability ---
Author Organization [employer] Address [address] [place] [id number] Care Team Providers Care Product Management Intern Name Role Phone [facility] Referring Provider Assessment Encounter Date Assessment Date Assessment LastModified by Organization Details LastModified Time 02/20/2022 02/20/2022 svc called for cough, SOB found 51 yom with hx asthma, DM, s/p R toe amp 1wk worsening BELTRAN cough also reports frequency small volume urination - confounded by use of OTC decongestant at visit, discovered significant wound care needs, housing safety needs, access to benefits, and continuity of care needs as documented above. very likely asthma exacerbation d/t viral URI Marked improvement in WOB to duoneb -standing duoneb q4h next 3d -given very good response to duoneb, no PO pred at this time -revisit tomorrow attempt urine specimen, trial tamsulosin, also confounded by recent decongestants -appears to have multiple significant unmet care needs, including potentially exposed bone from toe amp -escalate [facility] Checker, request dr to on primary care team [email or web address] Not available 02/20/2022 23:04:08 Plan of Treatment Reminders Order Date Submit Date Provider Last Modified By Organization Details Last Modified Time Details Appointments None recorded. Lab None recorded. Referral None recorded. Procedures None recorded. Surgeries None recorded. Imaging None recorded. Medication Orders tamsulosin 0.4 mg capsule 2022 023 [place], [place] - [id number], [address] [place], [address], 19:11:02 ipratropium 0.5 mg-albutero l 3 mg (2.5 mg base)/3 mL nebulizatio n soln 2022 023 [facility], [place] - [id number], [address] [facility], [place], [address], 3 19:41:14 Patient TargetsNo targets recorded. Patient InstructionsNo instructions recorded. Reason for Referral None Reported. Medical Equipment None Reported. Medications Name Sig Start Date Stop Date Status Note LastModified by Organization Details LastModified Time amoxicillin 500 mg capsule TAKE 1 CAPSULE BY MOUTH 3 (THREE) TIMES A DAY active Not Available Not Available Not Available atorvastatin 40 mg tablet TAKE 1 TABLET BY MOUTH ONCE DAILY IN THE EVENING active Not Available Not Available Not Available ipratropium 0.5 mg-albuterol 3 mg (2.5 mg base)/3 mL nebulization soln INHALE THE CONTENT OF 1 VIAL (3mls) VIA nebulizer 4 (FOUR) TIMES DAILY NEEDED active Not Available Not Available No t Available albuterol sulfate 2.5 mg/3 mL (0.083 %) solution for nebulization INHALE THE CONTENT OF 1 VIAL (3mls) VIA nebulizer EVERY 4 TO 6 HOURS NEEDED FOR FOR SHORTNESS OF BREATH OR FOR WHEEZING AND FOR COUGH active Not Available Not Available No t Available ammonium lactate 12 % lotion APPLY TO THE AFFECTED AREA TOPICALLY two (2) times a day NEEDED active Not Available Not Available No t Available prazosin 1 mg capsule TAKE 3 CAPSULES BY MOUTH ONCE DAILY AT BEDTIME active Not Available Not Available No t Available minocycline 100 mg capsule TAKE 1 CAPSULE BY MOUTH two (2) times a day active Not Available Not Available No t Available aspirin 81 mg tablet,delay ed release TAKE 1 TABLET BY MOUTH ONCE DAILY active Not Available Not Available No t Available tamsulosin 0.4 mg capsule TAKE 1 CAPSULE BY MOUTH ONCE DAILY active Not Available Not Available No t Available metformin 1,000 mg tablet TAKE 1 TABLET BY MOUTH two (2) times a day WITH A MEAL active Not Available Not Available No t Available metoprolol tartrate 50 mg tablet TAKE 1 TABLET BY MOUTH two (2) times a day active Not Available Not Available No t Available nicotine 21 mg/24 hr daily transdermal patch APPLY 1 PATCH TOPICALLY ONCE DAILY. apply to dry non-hairy area on upper chest or upper arm in the morning, rotate sites and remove before going to sleep active Not Available Not Available No t Available gabapentin 300 mg capsule TAKE 1 CAPSULE BY MOUTH EVERY 8 HOURS active Not Available Not Available No t Available losartan 50 mg-hydrochlo rothiazide 12.5 mg tablet TAKE 1 TABLET BY MOUTH ONCE DAILY active Not Available Not Available No t Available fluticasone propionate 50 mcg/actuatio n nasal spray,suspen lico SPRAY ONCE IN EACH NOSTRIL DAILY active Not Available Not Available No t Available loratadine 10 mg tablet TAKE 1 TABLET BY MOUTH ONCE DAILY NEEDED FOR ALLERGY active Not Available Not Available No t Available nortriptylin e 50 mg capsule TAKE 1 CAPSULE BY MOUTH ONCE DAILY AT BEDTIME active Not Available Not Available No t Available Novolog FlexPen U-100 Insulin aspart 100 unit/mL (3 mL) subcutaneous INJECT SUBCUTANEOU SLY 3 (THREE) TIMES A DAY BEFORE MEALS VIA sliding scale DIRECTED. maximum 30 UNITS EVERY 24 HOUR active Not Available Not Available No t Available duloxetine 20 mg capsule,mae yed release TAKE 1 CAPSULE BY MOUTH EVERY MORNING active Not Available Not Available No t Available duloxetine 30 mg capsule,mae yed release TAKE 1 CAPSULE BY MOUTH ONCE DAILY FOR PAIN active Not Available Not Available No t Available duloxetine 60 mg capsule,mae yed release TAKE 1 CAPSULE BY MOUTH EVERY MORNING active Not Available Not Available No t Available omega-3 acid ethyl esters 1 gram capsule TAKE 2 CAPSULES BY MOUTH two (2) times a day active Not Available Not Available No t Available Januvia 100 mg tablet TAKE ONE TABLET BY MOUTH DAILY active Not Available Not Available Not Available Symbicort 160 mcg-4.5 mcg/actuatio n HFA aerosol inhaler INHALE 2 PUFF BY MOUTH EVERY TWELVE HOURS. rinse mouth and throat after use active Not Available Not Available No t Available FreeStyle Lite Meter kit USE TO TEST FINGER STICK BLOOD SUGAR 4 (FOUR) TIMES DAILY DIRECTED active Not Available Not Available Not Available FreeStyle Lite Strips USE TO TEST FINGER STICK BLOOD SUGAR 4 (FOUR) TIMES DAILY active Not Available Not Available Not Available cholecalcife rol (vitamin D3) 1,250 mcg (50,000 unit) capsule TAKE 1 CAPSULE BY MOUTH EACH WEEK active Not Available Not Available No t Available Lantus Solostar U-100 Insulin 100 unit/mL (3 mL) subcutaneous pen INJECT 48 UNITS SUBCUTANEOU SLY ONCE DAILY IN THE EVENING active Not Available Not Available Not Available Comfort EZ Pen [place] 31 gauge x 5/16 USE 3 (THREE) TIMES A DAY active Not Available Not Available Not Available Artificial Tears ([id number] prasanna-glyceri n) 1 %-0.2 %-0.2 % eye drops PLACE 1 DROP IN BOTH EYES TWICE DAILY active Not Available Not Available Not Available Comfort EZ Insulin Syringe 1 mL 31 gauge x 07/01 USE WITH insulin two (2) times a day active Not Available Not Available No t Available Jardiance 10 mg tablet TAKE ONE TABLET BY MOUTH EVERY MORNING active Not Available Not Available No t Available Jardiance 25 mg tablet TAKE 1 TABLET BY MOUTH DAILY active Not Available Not Available Not Available Vitals Date Recorded Heart rate Body temperature Oxygen saturation Oxygen saturation in Arterial blood by Pulse oximetry Respiratory rate Body temperature Oxygen saturation Oxygen saturation in Arterial blood by Pulse oximetry Respiratory rate Heart rate Systolic blood pressure Diastolic blood pressure Systolic blood pressure Diastolic blood pressure Provider Name and Address Organization Details Last Updated DateTime 3 74 /min 98.2 [degF] 96 % 96 % 18 /min 98.2 [degF] 96 % 96 % 18 /min 74 /min 175 mm[Hg] 102 mm[Hg] 175 mm[Hg] 102 mm[Hg] Not Available [facility] - production 3 20:29:06 Social History None recorded. Functional Status None recorded. Mental Status None recorded. Family History Nothing Reported. Medical History No medical history recorded. Past Encounters Encounter ID Performer Location Encounter Start Date Encounter Closed Date Diagnosis/Indication Diagnosis SNOMED-CT Code Diagnosis ICD10 Code Diagnosis Note [id number] Haylee Reyes MD [facility] - [facility] [address] [place] [phone] 02/20/2022 18:47:32 02/24/2022 09:20:13 Increased frequency of urination 155612408 R35.0 Cough 40384107 R05.9 Health Concerns Section Related Observation LastModified by Organization Detai ls LastModified Time None Recorded Concern Status LastModified by Organization Details LastModified Time None Recorded Advance Directives Directive None Recorded Payers Encounter Date Sequence Insurance Name Policy Number Policy Munoz Covered Member ID Munoz Member ID Guarantor Name 02/20/2022 1 [facility] - DOS PRIOR TO 2022 - DUAL ELIGIBLE (MEDICARE REPLACEMENT/ADV ANTAGE - HMO) Jam Ferguson [id number] Jam Ferguson Notes Date Note Type Note Provider Name and Address Organization Details Recorded Time 02/20/2022 text/html [facility] Nursing Assessment: Reason For Request: HTN, cold and UTI Patient Reports: Cough, fever greater than 2 days ; History of asthma, increased use of inhaler; Sputum increase ; Cough; Shortness of breath with exertion; Painful urination; Frequent and increased urination with flank pain; Inability to fully empty bladder Denies: Palpitations, feeling dizzy Chest pain, increased fatigue CHF history, increased swelling and edema Weakness/tachycardia Lower extremity swelling COPD COVID Exposure Pain with inspiration Painful urination with or without fever Chief Complaints: Cough, Headache, Shortness of Breath/Dyspnea, UTI/Pyelonephritis PMH: COPD/Asthma, Hypertension, Diabetes Allergies: No Known Comments: 4 way call to obtain referral; primary care coordinator(interpreted), nurse, member and this nurse. Per care team this morning member had an elevated blood pressure 228/150, he was told to go to the ED. They then checked on member this evening, he did not go to the ED, and will not go. member on several blood pressure medication but is not always compliant. Team believes he did not take his meds this morning, but said he took 1 pill prior to this phone call. Per team BP 164/101, member denies chest pain, sob, dizziness, blurry vision or elevated HR. He does have a slight headache, but he thinks it is from an infected tooth that is not currently being treated, member was given dentist phone number today by his team. Member also c/o abd cramp, member does urinary urgency, frequency and retention. Member also has cold symptoms, congestion, productive cough, mild sob on exertion. Member has a nebulizer, but is also using an inhaler that a friend gave him. member aware of consequences per his care team of not seeking 911/ED, but is acceptable to an [facility] visit. ...................... ...................... ...................... ...................... ...................... ...................... ......... Automotive Product Specialist Note: Sent to evaluate pt with polycomplaints including htn, cough/sob, urinary retention/?UTI. Arrived on scene to find patient semi fowlers in bed, actively coughing. Pt is awake and alert, airway open and patent, breathing is regular between frequent coughing fits but pt seems uncomfortable and in pain. Through translation from pt's daughter on scene, found that entire household had flu x2 weeks ago. At that point, pt developed productive cough with white sputum and sob. Pt had fever when illness began and is afebrile at this time but has been regularly been taking tylenol. Pt has hx of asthma. Pt states his PCP has refused request to fill script for albuterol MDI so he has been using an inhaler his friend gave him, which upon this medic's inspection, turns out to be Symbicort. Pt states that his MD sent script of albuterol bullets, but they had no nebulizer at home. Pt's daughter bought one (because they could not get one prescribed) so that pt could take nebs, which he has q4 with moderate relief. Pt also reports episode of htn earlier in the day but has since taken his antihypertensives and is currently 175/102. Educated on importance of taking meds as prescribed and counseled that pt will have to f/u with pcp re: continued htn despite meds. Pt reports increased generalized pain (that he attributes to his fibromyalgia) over the last 2 weeks and states that his gabapentin dosing was recently reduced from 600mg q8 to 300mg q8 but he was not informed prior to change and is not sure why this has happened. Pt also reports approx 2 months of intermittent urinary retention with discomfort trying to empty bladder. Pt reports he told his doctor about this but was dismissed with no follow up and pt remains in intermittent distress. Pt reports being fully able to empty bladder yesterday, but has only had 3 episodes of urination today with the sensation that bladder still has urine. Set of vitals obtained. Skin is pink, warm, dry. Upon auscultation, L has diminished sounds and R reveals rhonchi. 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 Pt's daughter states that when small wound appeared some time ago, they were told that a wound care nurse would be coming to the house but that there was no follow up and pt has not received any professional wound care. Image of wound was taken and uploaded to [employer]. Pt's has been changing bandage BID with supplies that they have had to pay for out of pocket and and with no medical training. Wound has no odor at this time, with what appears to be exposed bone and tunneling into the foot. +pedal pulse. No erythema, no streaking. Foot is cool to the touch. Pt denies acute foot pain. Advised pt to keep foot clean and dry as possible. Pt's family details that due to gait instability from amputations, pt is w/c bound, however there is no ramp at home to get in and out of home. There is no shower bar installed and they are concerned about high fall risk. Also, due to needing to keep the wound dry, they have been buying their own cast protectors and other supplies to try and protect the wound when pt tries ADL's. [facility] is consulted and he orders duoneb, which is administered. Post neb reassessment of lungs reveal rales in lower L and still slight rhonchi in R but pt endorses relief. [facility] to order flomax, albuterol MDI, and combivent's to pt's pharmacy. [facility] will recommend repeat visit tomorrow for further evaluation/follow up and to possibly obtain urine sample. Provided reassurances to family that their concerns were valid and heard tonight with assistance of [facility]. Helped daughter write down all interventions performed tonight and which scripts were sent to pharmacy, provided pt education. Advised that pt will be needing f/u care with several different specialists. Circled back with [facility] who stated he will notify care team of all concerns that were brought to him tonight. Went over red flags and no further questions or concerns at this time and family will await visit tomorrow. ...................... ...................... ...................... ...................... ...................... ...................... ......... Disposition: Fulfilled Haylee Reyes MD [address] [place] [address],[address], [place], [phone], [facility]ULL[facility] 02/20/2022 23:04:28
--- OUTSIDE RECORDS SUMMARY | 2024-06-01 11:04 | XMS_ITS | Clinical Summary ---
Author Organization [facility] Address [address] [place] [address] Care Team Providers [employer] Department Chair Name Role Phone Patient, Has No Pcp Or Ref Primary Care Provider Unavailable Allergies No known active allergies Medications amLODIPine (NORVASC) 10 mg tablet Take 10 mg by mouth once a day. Active aspirin 81 mg EC tablet Take 81 mg by mouth once a day. Active carvediloL (COREG) 25 mg tablet Take 25 mg by mouth 2 times a day with meals. Active DULoxetine DR (CYMBALTA) 30 mg capsule Take 60 mg by mouth once a day. Active furosemide (LASIX) 40 mg tablet Take 80 mg by mouth once a day. Active gabapentin (NEURONTIN) 300 mg capsule Take 300 mg by mouth 4 times a day. Active hydrALAZINE (APRESOLINE) 10 mg tablet Take 10 mg by mouth 3 times a day. Active isosorbide mononitrate ER (IMDUR) 30 mg tablet Take 30 mg by mouth once a day. Active loratadine (CLARITIN) 10 mg tablet Take 10 mg by mouth once a day. Active nicotine (NICODERM CQ) 14 mg/[address] 1 patch on the skin every 24 hours. Active nortriptyline (PAMELOR) 25 mg capsule Take 50 mg by mouth nightly. Active prazosin (MINIPRESS) 1 mg capsule Take 1 mg by mouth nightly. Active sodium zirconium cyclosilicate (Lokelma) 10 gram powder Take 10 g by mouth once a day. Active budesonide-formote roL (SYMBICORT) 160-4.5 mcg inhaler Inhale 2 puffs by mouth 2 times a day. Rinse mouth with water after use. Do not swallow. Active tirzepatide (Mounjaro) 7.5 mg/0.5 mL pen injector Inject 7.5 mg under the skin every 7 days. Active atorvastatin (LIPITOR) 40 mg tablet Take 1 tablet by mouth every evening. Active Dexcom G6 Transmitter device See admin instruction s. Active Active Problems Problem Noted Date Diagnosed Date DM (diabetes mellitus) type II controlled with renal manifestation 04/06/2024 Hypertension 04/06/2024 COPD (chronic obstructive pulmonary disease) Encounters Date Type Department Care Team Description 05/24/2024 Abstract [facility] Transplant Department [address] [place] [phone] Anabell Arana RN 05/17/2024 Telephone [facility] [address] [place] [id number] Anabell Arana RN 05/03/2024 Telephone [facility] [address] [place] [phone] Anabell Arana RN 04/27/2024 8:41 AM EDT - 04/27/2024 11:59 PM EDT Hospital Encounter [facility] Ultrasound [address] [place] [phone] Saurabh Heck MD Type 2 diabetes mellitus with other circulatory complication, with long-term current use of insulin Discharge Disposition: Home or Self Care (01) 04/20/2024 Orders Only [facility] [address] [place] [phone] [employer] Director: Saurabh Brink MD Type 2 diabetes mellitus with other circulatory complication, with long-term current use of insulin (Primary Dx) 04/19/2024 Orders Only [facility] [address] [place] [phone] [employer] Board Director: Saurabh Brink MD 04/15/2024 Abstract [facility] Trans[facility] Department [address] [place] [phone] Valerio Barrow 04/11/2024 Abstract [facility] Transplant Department [address] [place] [address] Anabell Arana, RN 04/07/2024 11:20 AM EST Lab [facility] Draw [facility] [address] [place] [address] Pre-transplant evaluation for kidney transplant; Stage 4 chronic kidney disease; Weak urinary stream 04/07/2024 10:15 AM EST Office Visit [facility] Renal Transplant [address] [place] [address] Saurabh Heck MD Pre-transplant evaluation for end stage renal disease (Primary Dx); 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, with long-term current use of insulin; Chronic obstructive pulmonary disease, unspecified COPD type; History of CVA (cerebrovascular accident); Hypertension secondary to other renal disorders; At risk for obstructive sleep apnea; Mixed hyperlipidemia 04/07/2024 9:30 AM EST Social Work [facility]plant [address] [place] [address] Valerio Barrow 04/07/2024 8:15 AM EST Evaluation [facility] [address] [place] [address] Anabell Arana, RN Pre-transplant evaluation for kidney transplant (Primary Dx) 04/07/2024 8:00 AM EST Office Visit [facility]plant [address] [place] [address] Nannette Pereira RN Pre-transplant evaluation for kidney transplant (Primary Dx) 04/06/2024 Orders Only [facility] Trans[facility] [address] [place] [phone] Anabell Arana RN 04/06/2024 Orders Only [facility] Trans[facility] [address] [place] [phone] Anabell Arana, RN Pre-transplant evaluation for kidney transplant (Primary Dx); Stage 4 chronic kidney disease; Weak urinary stream 04/05/2024 Telephone [facility] [address] [place] [address] Anabell Arana RN 03/09/2024 Telephone [facility] Trans[facility] Department [address] [place] [address] Sharmila Mathis RN from Last 3 Months Immunizations Immunization Administration Dates Next Due Influenza, Unspecified 12/18/2023 Pneumococcal Polysaccharide Vaccine, 23 Valent 0 10/02/2020 Social History Tobacco Use Types Packs/Day Years Used Date Smoking Tobacco: Never Assessed Sex and Gender Information Value Date Recorded Sex Assigned at Male 04/07/2024 7:39 AM EST Legal Sex Male 3:14 PM EST Gender Identity Not on file Sexual Orientation Not on file Last Filed Vital Signs Vital Sign Reading Time Taken Comments Blood Pressure 153/91 04/27/2024 9:24 AM EDT Pulse 84 04/27/2024 9:24 AM EDT Temperature 36.7 ??C (98.1 ??F) 04/07/2024 8:41 AM ES T Respiratory Rate 20 04/27/2024 9:24 AM EDT Oxygen Saturation 99% 04/27/2024 9:24 AM EDT Inhaled Oxygen Concentration - - Weight 119.1 kg (262 lb 9.1 oz) 04/27/2024 9:24 AM EDT Height 188 cm (6' 2 ) 04/27/2024 9:24 AM EDT Body Mass Index 33.71 04/27/2024 9:24 AM EDT Plan of Treatment Upcoming Encounters Date Type Department Care Team (Late st Contact Info) Description 06/15/2024 2:30 PM EDT Appointment [facility] Cardiac Ultrasound [address] [place] [address] Saurabh Heck MD [address] [place] [address] 06/15/2024 3:45 PM EDT Appointment [facility] CT Scan [address] [place] [address] Saurabh Heck MD [address] [place] [address] 04/06/2025 11:20 AM EST Follow-Up [facility] Transplant [address] [place] [address] Saurabh Heck MD [address] [place] [address] Health Maintenance Due Date Last Done Comments 25 Hydroxy / Vitamin D 1968 Basic Metabolic Panel 1968 CKD: Referral to Nutrition 1968 Cologuard 1968 Colon Cancer Screening 1968 Colonoscopy 1968 FOBT / Fit Test 1968 Hemoglobin A1C 1968 PTH 1968 Sigmoidoscopy 1968 Ophthalmology Exam 1978 Urine Microalbumin 1978 Zoster Vaccines (1 of 2) 2018 Pneumococcal Vaccine: 50+ Ye ars (2 of 2 - PCV) 10/02/2021 10/02/2020, 12/01/2017 COVID-19 Vaccine (3 - 2023-2 5 season) 2023 07/22/2020, 07/01/2020 Alcohol/Substance Use Screening 02/17/2024 Depression Screening and Follow-Up 02/17/2024 Social Drivers of Health Lexus ual Screening 02/17/2024 Hepatitis B Vaccines (2 of 2 - CpG 2-dose series) 04/18/2024 03/21/2024 Hemoglobin 04/07/2025 04/07/2024 Phosphorus 04/07/2025 04/07/2024 DTaP,Tdap,and Td Vaccines (2 - Td or Tdap) 07/27/2028 07/27/2018 RSV Vaccine (60+ years old a nd patients) (1 - 1-dose 75+ series) 10/11/2043 Influenza Vaccine Completed 01/04/2024, , 11/22/2022, Additional history exists CKD: Referral to Nephrology Completed 04/07/2024 HIV Screening Completed 04/07/2024 Hepatitis C Screening Completed 04/07/2024 Procedures * Due to [place] state law, this organization might not be sharing negative HIV tests. Procedure Name Priority Date/Time Associated Diagnosis Comments ECHO DOBUTAMINE STRESS TEST W/ LIMITED DOPPLER, COLOR AND CONTRAST Routine 04/27/2024 9:55 AM EDT Type 2 diabetes mellitus with other circulatory complication, with long-term current use of insulin ABO/RH BLOOD TYPE Routine 04/07/2024 11: 40 AM EST Pre-transplant evaluation for kidney transplant Stage 4 chronic kidney disease ALBUMIN Routine 04/07/2024 11:40 AM EST Pre-transplant evaluation for kidney transplant Stage 4 chronic kidney disease ALT Routine 04/07/2024 11:40 AM EST Pre-transplant evaluation for kidney transplant Stage 4 chronic kidney disease AST Routine 04/07/2024 11:40 AM EST Pre-transplant evaluation for kidney transplant Stage 4 chronic kidney disease BILIRUBIN, DIRECT Routine 04/07/2024 11: 40 AM EST Pre-transplant evaluation for kidney transplant Stage 4 chronic kidney disease BILIRUBIN, TOTAL Routine 04/07/2024 11:4 0 AM EST Pre-transplant evaluation for kidney transplant Stage 4 chronic kidney disease BUN Routine 04/07/2024 11:40 AM EST Pre-transplant evaluation for kidney transplant Stage 4 chronic kidney disease CALCIUM Routine 04/07/2024 11:40 AM EST Pre-transplant evaluation for kidney transplant Stage 4 chronic kidney disease CBC AUTO DIFFERENTIAL Routine 04/07/2024 11:40 AM EST Pre-transplant evaluation for kidney transplant Stage 4 chronic kidney disease CREATININE Routine 04/07/2024 11:40 AM EST Pre-transplant evaluation for kidney transplant Stage 4 chronic kidney disease CYTOMEGALOVIRUS ANTIBODY, IGG Routine 04/07/2024 11:40 AM EST Pre-transplant evaluation for kidney transplant Stage 4 chronic kidney disease RANULFO-HAWKINS VIRUS ANTIBODY PANEL Routine 04/07/2024 11:40 AM EST Pre-transplant evaluation for kidney transplant Stage 4 chronic kidney disease HEPATITIS A ANTIBODY, TOTAL Routine 04/07/2024 11:40 AM EST Pre-transplant evaluation for kidney transplant Stage 4 chronic kidney disease HEPATITIS B CORE ANTIBODY, TOTAL Routine 04/07/2024 11:40 AM EST Pre-transplant evaluation for kidney transplant Stage 4 chronic kidney disease HEPATITIS B SURFACE ANTIGEN W/CONFIRMATION Routine 04/07/2024 11:40 AM EST Pre-transplant evaluation for kidney transplant Stage 4 chronic kidney disease HEPATITIS B SURFACE ANTIBODY Routine 04/07/2024 11:40 AM EST Pre-transplant evaluation for kidney transplant Stage 4 chronic kidney disease HEPATITIS C ANTIBODY W/REFLEX TO HCV RNA, QUANTITATIVE PCR Routine 04/07/2024 11:40 AM EST Pre-transplant evaluation for kidney transplant Stage 4 chronic kidney disease HERPES SIMPLEX VIRUS 1&2 ANTIBODY, IGG Routine 04/07/2024 11:40 AM EST Pre-transplant evaluation for kidney transplant Stage 4 chronic kidney disease MMR PANEL (MEASLES, MUMPS, RUBELLA), IGG Routine 04/07/2024 11:40 AM EST Pre-transplant evaluation for kidney transplant Stage 4 chronic kidney disease PHOSPHORUS Routine 04/07/2024 11:40 AM EST Pre-transplant evaluation for kidney transplant Stage 4 chronic kidney disease PROTIME-INR Routine 04/07/2024 11:40 AM EST Pre-transplant evaluation for kidney transplant Stage 4 chronic kidney disease PTT Routine 04/07/2024 11:40 AM EST Pre-transplant evaluation for kidney transplant Stage 4 chronic kidney disease QUANTIFERON-TB GOLD PLUS, 1 [id number] Routine 04/07/2024 11:40 AM EST Pre-transplant evaluation for kidney transplant Stage 4 chronic kidney disease RPR (DIAGNOSIS) W/REFLEX TO TITER & TPPA [id number] Routine 04/07/2024 11:40 AM EST Pre-transplant evaluation for kidney transplant Stage 4 chronic kidney disease VARICELLA ZOSTER ANTIBODY, IGG Routine 04/07/2024 11:40 AM EST Pre-transplant evaluation for kidney transplant Stage 4 chronic kidney disease HLA TRANSPLANT WORK-UP (ALLELE LEVEL A/B/C/DRB1/HJL895/DQA1/ DQB1/DPA1/DPB1) Routine 04/07/2024 11:40 AM EST Pre-transplant evaluation for kidney transplant Stage 4 chronic kidney disease HLA ANTIBODY IDENTIFICATION WITH TREATMENT - CLASS I Routine 04/07/2024 11:40 AM EST Pre-transplant evaluation for kidney transplant Stage 4 chronic kidney disease HLA ANTIBODY IDENTIFICATION WITH TREATMENT - CLASS II Routine 04/07/2024 11:40 AM EST Pre-transplant evaluation for kidney transplant Stage 4 chronic kidney disease PSA Routine 04/07/2024 11:40 AM EST Pre-transplant evaluation for kidney transplant Stage 4 chronic kidney disease Weak urinary stream from Last 3 Months Results * Due to [place] state law, this organization might not be sharing negative HIV tests. * ECHO DOBUTAMINE STRESS TEST W/ LIMITED DOPPLER, COLOR AND CONTRAST (04/27/2024 9:55 AM EDT) Target HR 140 bpm MV Peak E Akbar 0.66 m/s MV Peak A Akbar 1.02 m/s E/A ratio 0.60 E wave deceleration time 260.0 msec MV stenosis pressure 1/2 time 76 ms MV valve area p 1/2 method 2.90 cm2 LVIDD 4.7 cm LVIDS 3.4 cm IVS 1.3 cm Relative Wall Thickness 0.64 PW 1.5 cm LV Mass Index 107 g/m2 LV ED Post Wall 1.50 LV ES Dimension 3.40 LV ED Dimension 4.70 ST Depression (mm) [address] Depression (mm) 0 mm Dobut peak dose 30.0 mcg/kg/min Baseline HR 81 bpm Baseline BP 153/91 mmHg Post peak BP 165/76 mmHg Post peak HR 144 bpm Percent of predicted max HR 87 % LV mass 261 RA 2D single-plane vol 36 mL RA vol index 14.70 mL/m2 EF 53 Anatomical Region Laterality Modality Heart Echocardiography Narrative 04/27/2024 11:08 AM EDT ?Asymptomatic pharmacologic echocardiogram. ??No echocardiographic evidence of inducible ischemia. ?Baseline echocardiogram shows normal left ventricular cavity size with increased wall thickness in a pattern of concentric remodeling consistent with hypertension. ??Estimated ejection fraction 60%. ??No significant valvular disease identified. A prior echocardiogram was not available for direct comparison. Left Ventricle The left ventricle size is normal. Moderately increased left ventricular wall thickness. Left ventricular mass index is increased. There is increased relative wall thickness and normal left ventricular mass index, consistent with concentric remodeling. Normal left ventricular wall motion. Normal left ventricular systolic function. Left ventricular ejection fraction is in the normal range with visually estimated LVEF 60%. Right Ventricle Right ventricle size is normal. Normal right ventricular systolic function. Mitral Valve Mildly thickened mitral leaflets. No mitral regurgitation. No mitral stenosis. Tricuspid Valve Mildly thickened tricuspid leaflets. Trace tricuspid regurgitation. No tricuspid stenosis. Aortic Valve There is a trileaflet aortic valve. No aortic regurgitation. No aortic stenosis. Pulmonic Valve Pulmonic valve not well visualized. Trace pulmonic regurgitation. No pulmonic stenosis. Pericardium No pericardial effusion. Pulmonary Artery TR jet was inadequate to estimate pulmonary artery pressure. Study Details Study quality was adequate. A limited echocardiogram was performed with 2D and color flow Doppler. The apical and parasternal views were obtained. Optison ultrasound enhancing agent used. Stress Findings A pharmacological stress test was performed using dobutamine. The peak dobutamine dose was 30.0 mcg/kg/min. Dr. Lund was immediately available for assistance and direction during the test.The patient reported no symptoms during the stress test. The patient achieved the target heart rate. The target heart rate was 140 bpm. The resting heart rate of 81 bpm rickie to a maximal heart rate of 144 bpm. The resting blood pressure of 153/91 mmHg rickie to a maximum blood pressure of 165/76 mmHg. The blood pressure was hypertensive at baseline and rickie appropriately with stress the heart rate demonstrated a normal response to stress. The patient's heart rate recovery was normal. ECG Resting ECG: Normal sinus rhythm, nonspecific ST-T abnormalities. Stress ECG: Sinus rhythm. There are improvement in ST abnormalities with dobutamine infusion. Recovery ECG: Sinus rhythm, with return of nonspecific ST-T abnormalities. The ECG was negative for ischemia. Echo Post Stress There is appropriate reduction in left ventricular cavity size and augmentation of systolic function. No new wall motion abnormalities identified. There is appropriate reduction in left ventricular cavity size and augmentation of systolic function. No new wall motion abnormalities identified. There is appropriate reduction in left ventricular cavity size and augmentation of systolic function. No new wall motion abnormalities identified with increase in LVEF to greater than 75%. Wall Scoring Resting Score Index: 1.00 The left ventricular wall motion is normal. Wall Scoring Low Dose Score Index: 1.00 The left ventricular wall motion is normal. Wall Scoring Peak Dose Score Index: 1.00 The left ventricular wall motion is globally hyperkinetic. us Saurabh Heck MD CV ECHO PROCEDURES Final Re sult * HLA Transplan Work-Up(Allele Level A/B/C/DRB1/ZAQ611/DQA1/DQB1/DPA1/DPB1) (04/07/2024 11:40 AM EST) [facility] Information See Below 04/13/2024 4:33 PM EST [facility] Comment: OLGA: ??[id number] ?Director: ??Francy Fisher MD. [facility] PFI: ??[id number] UNOS: ??[id number] This test was developed and its performance characteristics determined by this laboratory. It has not been cleared or approved by the U.S. Food and Drug Administration. The FDA has determined that such clearance or approval is not necessary. This test is used for clinical purposes. It should not be regarded as investigational or for research. This laboratory is certified under the Clinical Laboratory Improvement Amendments of 1988 (CLIA-88) as qualified to perform high complexity clinical laboratory testing. A*-1 A*02:01 04/13/2024 4:33 PM EST [facility] A*-2 A*03:01 04/13/2024 4:33 PM EST [facility] A*-1 NMDP DATA NOT REPORTED 04/13/2024 4:33 PM EST [facility] A*-2 NMDP DATA NOT REPORTED 04/13/2024 4:33 PM EST [facility] Test Method NGS 04/13/2024 4:33 PM EST [facility] DQB1-1 DQB*02:02 04/13/2024 4:33 PM EST [facility] DQB1-2 DQB*06:04 04/13/2024 4:33 PM EST [facility] DQB1-1 NMDP DATA NOT REPORTED 04/13/2024 4:33 PM EST [facility] DQB1-2 NMDP DATA NOT REPORTED 04/13/2024 4:33 PM EST [facility] DPA1-1 DPA*01:03 04/13/2024 4:33 PM EST [facility] DPA1-2 DPA*02:01 04/13/2024 4:33 PM EST [facility] DPA1-1 NMDP DATA NOT REPORTED 04/13/2024 4:33 PM EST [facility] DPA1-2 NMDP DATA NOT REPORTED 04/13/2024 4:33 PM EST [facility] C*-1 C*02:10 04/13/2024 4:33 PM EST [facility] C*-2 C*07:04 04/13/2024 4:33 PM EST [facility] C*-1 NMDP DATA NOT REPORTED 04/13/2024 4:33 PM EST [facility] C*-2 NMDP DATA NOT REPORTED 04/13/2024 4:33 PM EST [facility] DPB1-1 DPB*02:01P 04/13/2024 4:33 PM EST [facility] DPB1-2 DPB*10:01P 04/13/2024 4:33 PM EST [facility] DPB1-1 NMDP DATA NOT REPORTED 04/13/2024 4:33 PM EST [facility] DPB1-2 NMDP DATA NOT REPORTED 04/13/2024 4:33 PM EST [facility] DRB1-1 DR*07:01 04/13/2024 4:33 PM EST [facility] DRB1-2 DR*13:02 04/13/2024 4:33 PM EST [facility] DRB1-1 NMDP DATA NOT REPORTED 04/13/2024 4:33 PM EST [facility] DRB1-2 NMDP DATA NOT REPORTED 04/13/2024 4:33 PM EST [facility] DQA1-1 DQA*01:02 04/13/2024 4:33 PM EST [facility] DQA1-2 DQA*02:01 04/13/2024 4:33 PM EST [facility] DQA1-1 NMDP DATA NOT REPORTED 04/13/2024 4:33 PM EST [facility] DQA1-2 NMDP DATA NOT REPORTED 04/13/2024 4:33 PM EST [facility] B*-1 B*15:01P 04/13/2024 4:33 PM EST [facility] B*-2 B*15:03P 04/13/2024 4:33 PM EST [facility] B*-1 NMDP DATA NOT REPORTED 04/13/2024 4:33 PM EST [facility] B*-2 NMDP DATA NOT REPORTED 04/13/2024 4:33 PM EST [facility] DRB3-1 3*03:01 04/13/2024 4:33 PM EST [facility] DRB3-2 DATA NOT REPORTED 04/13/2024 4:33 PM EST [facility] DRB3-1 NMDP DATA NOT REPORTED 04/13/2024 4:33 PM EST [facility] DRB3-2 NMDP DATA NOT REPORTED 04/13/2024 4:33 PM EST [facility] DRB4-1 DATA NOT REPORTED 04/13/2024 4:33 PM EST [facility] DRB4-2 4*01:01P 04/13/2024 4:33 PM EST [facility] DRB4-1 NMDP DATA NOT REPORTED 04/13/2024 4:33 PM EST [facility] DRB4-2 NMDP DATA NOT REPORTED 04/13/2024 4:33 PM EST [facility] DRB5-1 DATA NOT REPORTED 04/13/2024 4:33 PM EST [facility] DRB5-2 DATA NOT REPORTED 04/13/2024 4:33 PM EST [facility] DRB5-1 NMDP DATA NOT REPORTED 04/13/2024 4:33 PM EST [facility] DRB5-2 NMDP DATA NOT REPORTED 04/13/2024 4:33 PM EST [facility] Blood Structure of peripheral vein / Unknown Venipuncture / Unknown 04/07/2024 11:40 AM EST 04/07/2024 11:53 AM EST us Saurabh Heck MD HLA LAB ORDERABLES Edited R esult - Final [facility] [address] [facility] Rm: [id number] [place] [address], * (ABNORMAL) MMR Panel, IgG (04/07/2024 11:40 AM EST) Measles Antibody (IgG), Immune Status >300.00 AU/mL 04/07/2024 10:52 PM EST [facility] Comment: AU/mL ?Interpretation ----- ? <13.50 ? Not consistent with immunity 13.50-16.49 ?Equivocal >16.49 ? Consistent with immunity The presence of measles IgG suggests immunization or past or current infection with measles virus. For additional information, please refer to [email or web address] (This link is being provided for informational/ educational purposes only.) Mumps Antibody (IgG), Immune Status 177.00 AU/mL 04/07/2024 10:52 PM EST [facility] Comment: AU/mL ? Interpretation ------- ? <9.00 ? Not consistent with immunity 9.00-10.99 ?Equivocal >10.99 ?Consistent with immunity The presence of mumps IgG antibody suggests immunization or past or current infection with mumps virus. Rubella Antibody (IgG), Immune Status <0.90(L) Index 04/07/2024 10:52 PM EST [facility] Comment: ?Index ?Interpretation ?----- ?<0.90 ?Not consistent with immunity ?0.90-0.99 ?Equivocal ?> or = 1.00 ?Consistent with immunity The presence of rubella IgG antibody suggests immunization or past or current infection with rubella virus. Blood Structure of peripheral vein / Unknown Venipuncture / Unknown 04/07/2024 11:40 AM EST 04/07/2024 11:56 AM EST Narrative [facility] - 04/07/2024 10:52 PM EST [facility] Received Date: us Saurabh Heck MD LAB BLOOD ORDERABLES Final Result [facility] [address], [place] [address], [employer] [facility] [address], [place] [address], * (ABNORMAL) Herpes Simplex Virus 1&2, IgG (04/07/2024 11:40 AM EST) Pathologist [facility] HSV 1 IgG Type Specific Ab 1.19(H) index 04/11/2024 1:29 PM EST [employer] [facility] HSV 2 IgG Type Specific Ab 10.00(H) index 04/11/2024 1:29 PM EST [facility] Comment: ?Index ?Interpretation ?----- ?<0.90 ?Negative ?0.90-1.09 ?Equivocal ?>1.09 ?Positive This assay utilizes recombinant type-specific antigens to differentiate HSV-1 from HSV-2 infections. A positive result cannot distinguish between recent and past infection. If recent HSV infection is suspected but the results are negative or equivocal, the assay should be repeated in 4-6 weeks. The performance characteristics of the assay have not been established for pediatric populations, immunocompromised patients, or screening. For additional information, please refer to http://education.Cooleaf/faq/WOB722 (This link is being provided for informational/ educational purposes only.) ?? Blood Structure of peripheral vein / Unknown Venipuncture / Unknown 04/07/2024 11:40 AM EST 04/07/2024 11:56 AM EST Narrative [facility] [place] - 04/11/2024 1:29 PM EST [facility] Received Date:[id number] us Saurabh Heck MD LAB BLOOD ORDERABLES Final Result Performing Organization Address [facility] de Phone Number [facility] [place] [address], [place] [address], [employer] ([facility]) [address], [place] [address], [place] [phone] * RPR (Diagnosis) w/Reflex to Titer & TPPA Confirm (04/07/2024 11:40 AM EST) RPR W/Refl Titer NON-REACT EMILIANO NON-REACT EMILIANO 04/08/2024 9:32 AM EST [facility] Blood Structure of peripheral vein / Unknown Venipuncture / Unknown 04/07/2024 11:40 AM EST 04/07/2024 11:56 AM EST Narrative [facility] [place] - 04/08/2024 9:32 AM EST [facility] Received Date:[id number] us Saurabh Heck MD LAB BLOOD ORDERABLES Final Result Performing Organization Address [facility] Co de Phone Number [facility] [address], [place] [address], [facility] [address] [facility] 3rd Floor, [address] [facility] [place] [address], * QuantiFERON-TB Gold Plus, 1 Tube (04/07/2024 11:40 AM EST) [facility] QuantiFERON-TB Gold Plus NEGATIVE NEGATIVE 04/10/2024 8:20 PM EST [employer] ([facility]) [facility] Comment: Negative test result. M. tuberculosis complex infection unlikely. NIL 0.10 IU/mL 04/10/2024 8:20 PM EST [employer] [facility] Mitogen-NIL >10.00 IU/mL 04/10/2024 8:20 PM EST [employer] [facility] TB1-NIL <0.00 IU/mL 04/10/2024 8:20 PM EST [employer] [facility] TB2-NIL <0.00 IU/mL 04/10/2024 8:20 PM EST [employer] [facility] Comment: The Nil tube value reflects the background interferon gamma immune response of the patient's blood sample. This value has been subtracted from the patient's displayed TB and Mitogen results. Lower than expected results with the Mitogen tube prevent false-negative Quantiferon readings by detecting a patient with a potential immune suppressive condition and/or suboptimal pre-analytical specimen handling. The TB1 Antigen tube is coated with the M. tuberculosis-specific antigens designed to elicit responses from TB antigen primed CD4+ helper T-lymphocytes. The TB2 Antigen tube is coated with the M. tuberculosis-specific antigens designed to elicit responses from TB antigen primed CD4+ helper and CD8+ cytotoxic T-lymphocytes. For additional information, please refer to https://education.Revstr.[employer]./faq/EHQ149 (This link is being provided for informational/ educational purposes only.) Blood Structure of peripheral vein / Unknown Venipuncture / Unknown 04/07/2024 11:40 AM EST 04/07/2024 11:52 AM EST Narrative [facility] [place] - 04/10/2024 8:20 PM EST [facility] Received Date: us Saurabh Heck MD LAB BLOOD ORDERABLES Final Result [facility] [address], [place] [address], [place] [phone] [employer] ([facility]) [facility] [address] [place] [address], [place] [address], [place] [phone] * (ABNORMAL) CBC Auto Differential (04/07/2024 11:40 AM EST) WBC 12.9(H) 3.8 - 10.8 10*3/uL 04/07/2024 12:05 PM EST [facility] RBC 3.83(L) 4.20 - 5.80 10*6/uL 04/07/2024 12:05 PM EST [facility] Hemoglobin 10.4(L) 13.2 - 17.1 g/dL 04/07/2024 12:05 PM EST [facility] Hematocrit 33.9(L) 38.5 - 50.0 % 04/07/2024 12:05 PM EST [facility] MCV 88.5 80.0 - 100.0 fL 04/07/2024 12:05 PM EST [facility] MCH 27.2 27.0 - 33.0 pg 04/07/2024 12:05 PM EST [facility] MCHC 30.7(L) 32.0 - 36.0 g/dL 04/07/2024 12:05 PM EST [facility] RDW 14.1 11.0 - 15.0 % 04/07/2024 12:05 PM EST [facility] Platelets 384 140 - 400 10*3/uL 04/07/2024 12:05 PM EST [facility] MPV 9.9 7.5 - 12.5 fL 04/07/2024 12:05 PM EST [facility] Neutrophil % 70.4 % 04/07/2024 12:05 PM EST [facility] Immature Grans % 0.7 0.0 - 0.9 % 04/07/2024 12:05 PM EST [facility] Lymphocyte % 16.9 % 04/07/2024 12:05 PM EST [facility] Monocyte % 5.9 % 04/07/2024 12:05 PM EST [facility] Eosinophil % 5.0 % 04/07/2024 12:05 PM EST [facility] Basophil % 1.1 % 04/07/2024 12:05 PM EST [facility] Neutrophil # 9.08(H) 1.50 - 7.80 10*3/uL 04/07/2024 12:05 PM EST [facility] Immature Grans # 0.09(H) <=0.03 10*3/uL 04/07/2024 12:05 PM EST [facility] Lymphocyte # 2.20 0.85 - 3.90 10*3/uL 04/07/2024 12:05 PM EST [facility] Monocyte # 0.80 0.20 - 0.95 10*3/uL 04/07/2024 12:05 PM EST [facility] Eosinophil # 0.60(H) 0.02 - 0.50 10*3/uL 04/07/2024 12:05 PM EST [facility] Basophil # 0.10 0.00 - 0.20 10*3/uL 04/07/2024 12:05 PM EST [facility] nRBC % 0.0 /100 WBCs 04/07/2024 12:05 PM EST [facility] nRBC # <0.01 <0.01 10*3/uL 04/07/2024 12:05 PM EST [facility] Blood Structure of peripheral vein / Unknown Venipuncture / Unknown 04/07/2024 11:40 AM EST 04/07/2024 11:56 AM EST us Saurabh Heck MD LAB BLOOD ORDERABLES Final Result [email or web address] [address] [place] [address], * (ABNORMAL) Ranulfo-Hawikns Virus VCA Antibody Panel (04/07/2024 11:40 AM EST) EBV Viral Capsid Ag Ab (IGM) <36.00 U/mL 04/07/2024 10:47 PM EST [facility] Comment: ?U/mL ?Interpretation ?---- ?<36.00 ?Negative ?36.00-43.99 ? Equivocal ?>43.99 ?Positive EBV Viral Capsid Ag Ab (IGG) 211.00(H) U/mL 04/07/2024 10:47 PM EST [facility] Comment: ? U/mL ? Interpretation ? ---- ? <18.00 ? Negative ? 18.00-21.99 ?Equivocal ? >21.99 ? Positive EBV Nuclear Ag Ab 396.00(H) U/mL 025 10:47 PM EST [facility] Comment: ? U/mL ? Interpretation ? ---- ? <18.00 ? Negative ? 18.00-21.99 ?Equivocal ? >21.99 ? 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 In infants, a similar pattern may occur as a result of passive maternal transfer of antibody. Blood Structure of peripheral vein / Unknown Venipuncture / Unknown 04/07/2024 11:40 AM EST 04/07/2024 11:55 AM EST [facility] - 04/07/2024 10:47 PM EST [facility] Received Date: Saurabh Heck MD LAB BLOOD ORDERABLES Final Result [facility] [place] [address] [facility] 3rd [address], [place] [address], [facility] [address] [facility] 3rd [address], [place] [address], * Hepatitis C Antibody w/Reflex to PCR (04/07/2024 11:40 AM EST) Hepatitis C Antibody NON-REACT EMILIANO NON-REACT EMILIANO 04/07/2024 7:09 PM EST [facility] Comment: HCV antibody was non-reactive. There is no laboratory evidence of HCV infection. In most cases, no further action is required. However, if recent HCV exposure is suspected, a test for HCV RNA (test code 01008) is suggested. For additional information please refer to http://education.Dublin [employer]/faq/ZDS71h8 (This link is being provided for informational/ educational purposes only.) Blood Structure of peripheral vein / Unknown Venipuncture / Unknown 04/07/2024 11:40 AM EST 04/07/2024 11:56 AM EST Narrative [facility] 04/07/2024 7:09 PM EST [facility] Received Date:[id number] us Saurabh Heck MD LAB BLOOD ORDERABLES Final Result [facility] [place] [address], [place] [address], [place] [phone] [employer] ([facility]) [facility] [address], [place] [address], [place] [phone] * (ABNORMAL) Hepatitis A Antibody, Total (04/07/2024 11:40 AM EST) Hepatitis A Ab, Total REACTIVE( A) NON-REACT EMILIANO 04/07/2024 7:18 PM EST [employer] [facility] Comment: For additional information, please refer to http://[employer]/faq/MYB679 (This link is being provided for informational/ educational purposes only.) Blood Structure of peripheral vein / Unknown Venipuncture / Unknown 04/07/2024 11:40 AM EST 04/07/2024 11:55 AM EST Narrative [facility] [place] - 04/07/2024 7:18 PM EST [facility] Received Date:[id number] us Saurabh Heck MD LAB BLOOD ORDERABLES Final Result Performing Organization Address City/[facility]/ZIP Co de Phone Number [facility] [place] [address], [place] [address], [place] [phone] [employer] ([facility] [address], [place] [address], [place] [phone] * Hepatitis B Core Antibody, Total (04/07/2024 11:40 AM EST) Hepatitis B Core Ab Total NON-REACT EMILIANO NON-REACT EMILIANO 04/08/2024 2:28 AM EST [facility] Comment: For additional information, please refer to http://[employer]/faq/ORR784 (This link is being provided for informational/ educational purposes only.) Blood Structure of peripheral vein / Unknown Venipuncture / Unknown 04/07/2024 11:40 AM EST 04/07/2024 11:56 AM EST Narrative [facility] [place] - 04/08/2024 2:28 AM EST [facility] Received Date: us Saurabh Heck MD LAB BLOOD ORDERABLES Final Result [facility] [address], [place] [address], [place] [phone] [employer] ([facility]) [address], [place] [address], [place] [phone] * ABO/Rh Blood Type (04/07/2024 11:40 AM EST) ABO Blood Type O 04/07/2024 1:05 PM EST [facility] RH Type Positive 04/07/2024 1:05 PM EST [facility] Blood Structure of peripheral vein / Unknown Venipuncture / Unknown 04/07/2024 11:40 AM EST 04/07/2024 12:17 PM EST us Saurabh Heck MD LAB BLOOD BANK TEST ORDERAB LES Final Result [facility] [address] [place] [address], [place] [phone] * (ABNORMAL) Hepatitis B Surface Antibody (04/07/2024 11:40 AM EST) Hepatitis B Surface Ab Immunity, Qn <5(L) > OR = 10 mIU/mL 04/07/2024 7:17 PM EST [facility] Comment: PATIENT DOES NOT HAVE IMMUNITY TO HEPATITIS B VIRUS. For additional information, please refer to http://[employer]/faq/GOO234 (This link is being provided for informational/ educational purposes only). Blood Structure of peripheral vein / Unknown Venipuncture / Unknown 04/07/2024 11:40 AM EST 04/07/2024 11:55 AM EST Narrative [facility] [place] - 04/07/2024 7:17 PM EST [facility] Received Date:[id number] us Saurabh Heck MD LAB BLOOD ORDERABLES Final Result Performing Organization Address City/[facility]/ZIP Co de Phone Number [facility] [place] [address], [place] [address], [place] [phone] [employer] ([facility]) [address], [place] [address], [place] [phone] * Hepatitis B Surface Antigen w/Confirmation (04/07/2024 11:40 AM EST) Hepatitis B Surface Antigen NON-REACT EMILIANO NON-REACT EMILIANO 04/07/2024 7:18 PM EST [facility] Comment: For additional information, please refer to http://education.[employer]/faq/KJQ927 (This link is being provided for informational/ educational purposes only.) Blood Structure of peripheral vein / Unknown Venipuncture / Unknown 04/07/2024 11:40 AM EST 04/07/2024 11:56 AM EST Narrative [facility] [place] - 04/07/2024 7:18 PM EST [facility] Received Date:[id number] us Saurabh Heck MD LAB BLOOD ORDERABLES Final Result Performing Organization Address City/[facility]/ZIP Co de Phone Number [facility] [place] [address] [facility] [address] [facility], [place] [address], [place] [phone] [employer] [facility] [address], [place] [address], [place] [phone] * (ABNORMAL) Cytomegalovirus Antibody, IgG (04/07/2024 11:40 AM EST) Cytomegalovirus Antibody (IgG) 8.50(H) U/mL 04/07/2024 10:50 PM EST [facility] Comment: ? U/mL ? Interpretation ? ----- ? <0.60 ? Negative ? 0.60-0.69 ? Equivocal ? > or = 0.70 ?? Positive A positive result indicates that the patient has antibody to CMV. It does not differentiate between an active or past infection. Blood Structure of peripheral vein / Unknown Venipuncture / Unknown 04/07/2024 11:40 AM EST 04/07/2024 11:56 AM EST Narrative [facility] - 04/07/2024 10:50 PM EST [facility] Received Date: us Saurabh Heck MD LAB BLOOD ORDERABLES Final Result [facility] [address], [place] [address], [place] [phone] [employer] ([facility] [address] [place] [address], [place] [address], [place] [phone] * PTT (04/07/2024 11:40 AM EST) [facility] aPTT 31.9 23.0 - 32.0 Seconds 04/07/2024 12:22 PM EST [facility] Comment: Current PTT reagent is not sensitive to detect all Lupus Anticoagulant (LA) Inhibitor Cases. ?? If a LA is suspected, please order a Lupus Anticoagulation w/ Reflex Test which is performed at [facility] in [place], [place]. Blood Structure of peripheral vein / Unknown Venipuncture / Unknown 04/07/2024 11:40 AM EST 04/07/2024 11:56 AM EST Saurabh Heck MD LAB BLOOD ORDERABLES Final Result Performing Organization Address [facility] de Phone Number [facility] [address] [place] [address], * Protime-INR (04/07/2024 11:40 AM EST) PT 10.6 9.6 - 12.4 Seconds 04/07/2024 12:22 PM EST [facility] INR 1.0 0.9 - 1.1 04/07/2024 12:22 PM EST [facility] Comment:The optimal therapeu tic INR range for patients treated with Vitamin K antagonists (VKAS, e.g., Warfarin) is 2.0 to 3.5. Discuss the desired range with your doctor/care team. Blood Structure of peripheral vein / Unknown Venipuncture / Unknown 04/07/2024 11:40 AM EST 04/07/2024 11:56 AM EST Saurabh Heck MD LAB BLOOD ORDERABLES Final Result Performing Organization Address [facility] de Phone Number [facility] [address] [place] [address], * Varicella Zoster Antibody, IgG (04/07/2024 11:40 AM EST) Varicella Zoster Virus Antibody 31.20 S/CO 04/08/2024 5:16 PM EST [facility] Comment: ?Signal to Cut-off ? S/CO ?Interpretation ? --------- ?<1.00 ?Negative - Antibody not detected ?> or = 1.00 ?Positive - Antibody detected ?A positive result indicates that the patient ?has antibody to VZV but does not differentiate ?between an active or past infection. ?The clinical diagnosis must be interpreted in ?conjunction with the clinical signs and symptoms of ?the patient. This assay reliably measures immunity ?due to previous infection but may not be ?sensitive enough to detect antibodies induced by ?vaccination. Thus, a negative result in a vaccinated ?individual does not necessarily indicate ?susceptibility to VZV infection. A more sensitive ?test for vaccination-induced immunity is Varicella ?Zoster Virus Antibody Immunity Screen, ACIF. Blood Structure of peripheral vein / Unknown Venipuncture / Unknown 04/07/2024 11:40 AM EST 04/07/2024 11:56 AM EST Narrative [facility] - 04/08/2024 5:16 PM EST [facility] Received Date: us Saurabh Heck MD LAB BLOOD ORDERABLES Final Result Performing Organization Address City/State/[facility] Co de Phone Number CAR[facility]NN [place] [address] [facility] [address], [place] [address], [place] [phone] [employer] ([facility]) [facility] [address] [facility] 3rd [address], [place] [address], * (ABNORMAL) BUN (04/07/2024 11:40 AM EST) BUN 46(H) 7 - 23 mg/dL 04/07/2024 12:25 PM EST [facility] Blood Structure of peripheral vein / Unknown Venipuncture / Unknown 04/07/2024 11:40 AM EST 04/07/2024 11:56 AM EST Saurabh Heck MD LAB BLOOD ORDERABLES Final Result Performing Organization Address [facility] Co de Phone Number [facility] [address] [place] [address], * (ABNORMAL) ALT (04/07/2024 11:40 AM EST) ALT 7(L) 10 - 40 U/L 04/07/2024 12:25 PM EST [facility] Blood Structure of peripheral vein / Unknown Venipuncture / Unknown 04/07/2024 11:40 AM EST 04/07/2024 11:56 AM EST Saurabh Heck MD LAB BLOOD ORDERABLES Final Result Performing Organization Address [facility] Co de Phone Number [facility] [address] [place] [address], [place] * AST (04/07/2024 11:40 AM EST) Pathologist [facility] AST 16 10 - 40 U/L 04/07/2024 12:25 PM EST [facility] Blood Structure of peripheral vein / Unknown Venipuncture / Unknown 04/07/2024 11:40 AM EST 04/07/2024 11:56 AM EST Saurabh Heck MD LAB BLOOD ORDERABLES Final Result Performing Organization Address [facility] Co de Phone Number [facility] [address] [place] [address], [place] * PSA (04/07/2024 11:40 AM EST) PSA 0.20 <=4.00 ng/mL 04/07/2024 12:37 PM EST [facility] Comment: The total PSA value from this assay system is standardized against the WHO standard. ??The test result will be slightly lower (< 3 %) when compared to the equimolar-standardized total PSA([place]). ??Comparison of Serial PSA results should be interpreted with this fact in mind. ??PSA level, regardless of value should not be interpreted as absolute evidence of the presence or absence of disease. This test was performed using Julia chemiluminescent method. ??Values obtained by different assay methods cannot be used interchangeably. Blood Structure of peripheral vein / Unknown Venipuncture / Unknown 04/07/2024 11:40 AM EST 04/07/2024 11:56 AM EST us Saurabh Heck MD LAB BLOOD ORDERABLES Final Result Performing Organization Address City/[facility]/ZIP Co de Phone Number [facility] [address] [place] [address], [place] * Phosphorus (04/07/2024 11:40 AM EST) Phosphorus 4.4 2.5 - 4.5 mg/dL 04/07/2024 12:25 PM EST [facility] Blood Structure of peripheral vein / Unknown Venipuncture / Unknown 04/07/2024 11:40 AM EST 04/07/2024 11:56 AM EST Saurabh Heck MD LAB BLOOD ORDERABLES Final Result Performing Organization Address [facility] Co de Phone Number [facility] [address] [place] [address], [place] * (ABNORMAL) Creatinine (04/07/2024 11:40 AM EST) Creatinine 4.84(H) 0.60 - 1.30 mg/dL 04/07/2024 12:25 PM EST [facility] eGFR 13(L) >=60 mL/min/1 .73m2 04/07/2024 12:25 PM EST [facility] Comment:The estimated glomer ular filtration rate (eGFR) is calculated using a new formula developed by the NKF-ASN task force to eliminate race-based correction factors. The new formula uses serum/plasma creatinine, age, and gender to determine eGFR. A value below 60mls/min might indicate kidney disease and will be flagged. For additional information, see Marshall bah al, Am J Kidney Dis. 2021;79(2):268- 288, A Unifying Approach for GFR estimation: Recommendations of the NKF-ASN Task Force on Reassessing the Inclusion of Race in Diagnosing Kidney Disease . Blood Structure of peripheral vein / Unknown Venipuncture / Unknown 04/07/2024 11:40 AM EST 04/07/2024 11:56 AM EST us Saurabh Heck MD LAB BLOOD ORDERABLES Final Result Performing Organization Address City/[facility]/ZIP Co de Phone Number [facility] [address] [place] [address], [place] * Calcium (04/07/2024 11:40 AM EST) Calcium 8.8 8.6 - 10.5 mg/dL 04/07/2024 12:25 PM EST [facility] Blood Structure of peripheral vein / Unknown Venipuncture / Unknown 04/07/2024 11:40 AM EST 04/07/2024 11:56 AM EST us Saurabh Heck MD LAB BLOOD ORDERABLES Final Result [facility] [address] [place] [address], [place] * Bilirubin, Direct (04/07/2024 11:40 AM EST) Bilirubin, Direct <0.1 <=0.4 mg/dL 04/07/2024 12:30 PM EST [facility] Blood Structure of peripheral vein / Unknown Venipuncture / Unknown 04/07/2024 11:40 AM EST 04/07/2024 11:56 AM EST Saurabh Heck MD LAB BLOOD ORDERABLES Final Result [facility] [address] [place] [address], * Bilirubin, Total (04/07/2024 11:40 AM EST) Bilirubin, Total 0.2 0.2 - 1.2 mg/dL 04/07/2024 12:30 PM EST [facility] Blood Structure of peripheral vein / Unknown Venipuncture / Unknown 04/07/2024 11:40 AM EST 04/07/2024 11:56 AM EST Saurabh Heck MD LAB BLOOD ORDERABLES Final Result Performing Organization Address [facility] Co de Phone Number [facility] [address] [place] [address], * Albumin (04/07/2024 11:40 AM EST) Albumin 3.7 3.5 - 5.2 g/dL 04/07/2024 12:25 PM EST [facility] Blood Structure of peripheral vein / Unknown Venipuncture / Unknown 04/07/2024 11:40 AM EST 04/07/2024 11:56 AM EST Saurabh Heck MD LAB BLOOD ORDERABLES Final Result [facility] [address] [place] [address], from Last 3 Months Insurance Care Teams [employer] Department Chair Relationship Specialty Start Date End Date Patient, Has No Pcp Or Ref DO NOT EDIT THIS RECORD VIA PROVIDER ON THE FLY PCP - General Furnace Firer 04/07/24
--- OUTSIDE RECORDS SUMMARY | 2024-06-01 11:04 | XMS_ITS | Encounter Summary ---
Author Organization [facility] Address [address] [place] [address] Care Team Providers Care Dispatch Clerk Name Role Phone Unavailable Primary Care Provider Unavailabl e Encounter Details Date Type Department Care Team (Late st Contact Info) Description 05/16/2024 Lab Requisition [facility] - Main Lab [address] [place] [address] Cole Del Valle MD [address] [place] [address] Anemia, unspecified Social History Tobacco Use Types Packs/Day Years Used Date Smoking Tobacco: Every Day Smokeless Tobacco: Never Alcohol Use Standard Drinks/Week Comments No 0 (1 standard drink = 0.6 oz pur e alcohol) Sex and Gender Information Value Date Recorded Sex Assigned at Not on file Legal Sex Male 1:54 PM EST Gender Identity Not on file Sexual Orientation Not on file documented as of this encounter Plan of Treatment Not on file documented as of this encounter Procedures Procedure Name Priority Date/Time Associated Diagnosis Comments HEMOGLOBIN STAT 05/16/2024 9:30 AM EDT Anemia, unspecified documented in this encounter Results * (ABNORMAL) Hemoglobin (05/16/2024 9:30 AM EDT) Hemoglobin 8.1(L) 13.5 - 17.5 g/dL LAB HEMETOLOGY METHOD 05/16/2024 12:[address] [facility] Blood Venous blood specimen / Unknown 05/16/2024 9:30 AM EDT 05/16/2024 12:28 PM EDT us Cole Del Valle MD LAB BLOOD ORDERABL ES Final Result [facility] [address] [place] [address], documented in this encounter Visit Diagnoses Diagnosis Anemia, unspecified documented in this encounter
--- OUTSIDE RECORDS SUMMARY | 2024-06-01 11:04 | XMS_ITS | Referral Summary ---
Author Organization [facility] Address [address] [place] [address] Care Team Providers Care Community Music Therapist Name Role Phone Patient, Has No Pcp Or Ref Primary Care Provider Unavailable Encounters Date Type Department Care Team Description 05/24/2024 Abstract [facility] Transplant Department [address] [place] [address] Anabell Arana, RN 05/17/2024 Telephone [facility] Transplant Department [address] [place] [address] Anabell Arana, RN 05/03/2024 Telephone [facility] Transplant Department [address] [place] [address] Anabell Arana, RN 04/27/2024 8:41 AM EDT - 04/27/2024 11:59 PM EDT Hospital Encounter [facility] Ultrasound [address] [place] [address] Saurabh Heck MD Type 2 diabetes mellitus with other circulatory complication, with long-term current use of insulin Discharge Disposition: Home or Self Care (01) 04/20/2024 Orders Only [facility] Nephrology Clinic [address] [place] [address] Timber Bucker: Saurabh Brink MD Type 2 diabetes mellitus with other circulatory complication, with long-term current use of insulin (Primary Dx) 04/19/2024 Orders Only [facility] [address] [place] [address] Timber Bucker: Saurabh Brink MD 04/15/2024 Abstract [facility] Transplant Department [address] [place] [address] Valerio Barrow 04/11/2024 Abstract [facility] Transplant Department [address] [place] [address] Anabell Arana RN 04/07/2024 11:20 AM EST Lab [facility] Draw Site [address] [place] [address] Pre-transplant evaluation for kidney transplant; Stage 4 chronic kidney disease; Weak urinary stream 04/07/2024 10:15 AM EST Office Visit [facility] Renal Transplant [address] [place] [address] Saurabh Heck MD Pre-transplant evaluation for end stage renal disease (Primary Dx); 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, with long-term current use of insulin; Chronic obstructive pulmonary disease, unspecified COPD type; History of CVA (cerebrovascular accident); Hypertension secondary to other renal disorders; At risk for obstructive sleep apnea; Mixed hyperlipidemia 04/07/2024 9:30 AM EST Social Work [facility] Renal Transplant [address] [place] [address] Valerio Barrow 04/07/2024 8:15 AM EST Evaluation [facility] Renal Transplant [address] [place] [address] Anabell Arana RN Pre-transplant evaluation for kidney transplant (Primary Dx) 04/07/2024 8:00 AM EST Office Visit [facility] Renal Transplant [address] [place] [address] Nannette Pereira RN Pre-transplant evaluation for kidney transplant (Primary Dx) 04/06/2024 Orders Only [facility] Transplant Department [address] [place] [address] Anabell Arana RN 04/06/2024 Orders Only [facility] Transplant Department [address] [place] [address] Anabell Arana RN Pre-transplant evaluation for kidney transplant (Primary Dx); Stage 4 chronic kidney disease; Weak urinary stream 04/05/2024 Telephone [facility] Transplant Department [address] [place] [address] Anabell Arana RN 03/09/2024 Telephone [facility] Transplant Department [address] [place] [address] Sharmila Mathis RN from Last 3 Months Allergies No known active allergies Medications amLODIPine [...] Hypertension 04/06/2024 COPD (chronic obstructive pulmonary disease) Immunizations Immunization Administration Dates Next Due Influenza, [...] Info) Description 06/15/2024 2:30 PM EDT Appointment [facility] Building Cardiac Ultrasound [address] [place] [address] Saurabh Heck MD [address] [place] [address] 06/15/2024 3:45 PM EDT Appointment [facility] CT Scan [address] [place] [address] Saurabh Heck MD [address] [place] [address] 04/06/2025 11:20 AM EST Follow-Up [facility] Renal Transplant [address] [place] [address] Saurabh Heck MD [address] [place] [address] Procedures * Due to [place] state law, this organization might not be [...] chronic kidney disease QUANTIFERON-TB GOLD PLUS, 1 [id number] Routine 04/07/2024 11:40 AM EST Pre-transplant evaluation for kidney transplant Stage 4 chronic kidney disease RPR (DIAGNOSIS) W/REFLEX TO TITER & TPPA [id number] Routine 04/07/2024 11:40 AM EST Pre-transplant evaluation for kidney transplant Stage 4 chronic kidney disease VARICELLA ZOSTER ANTIBODY, IGG Routine 04/07/2024 11:40 AM EST Pre-transplant evaluation for kidney transplant Stage 4 chronic kidney disease HLA TRANSPLANT WORK-UP (ALLELE LEVEL A/B/C/DRB1/HNP806/DQA1/ DQB1/DPA1/DPB1) Routine 04/07/2024 11:40 AM EST Pre-transplant [...] Last 3 Months Results * Due to [place] state law, this organization might not be [...] The apical and parasternal views were obtained. [employer] enhancing agent used. Stress Findings A pharmacological stress test was performed using dobutamine. The peak dobutamine dose was 30.0 mcg/kg/min. Dr. Lnud was immediately available for assistance and direction [...] Re sult * HLA Transplan Work-Up(Allele Level A/B/C/DRB1/JIX830/DQA1/DQB1/DPA1/DPB1) (04/07/2024 11:40 AM EST) [facility] Histocompatibility Laboratory Information See Below 04/13/2024 4:33 PM EST [facility] Comment: OLGA: ??[id number] ?Director: ??Francy Fisher MD. [facility] PFI: ??[id number] UNOS: ??[id number] This test was [...] us Saurabh Heck MD HLA LAB ORDERABLES Glenn guy - Final [facility] [employer] [facility] [address] [facility] Rm: [id number] [place] [address], * (ABNORMAL) MMR Panel, IgG (04/07/2024 11:40 AM EST) Measles Antibody (IgG), Immune Status >300.00 AU/mL 04/07/2024 10:52 PM EST [facility] Comment: AU/mL ?Interpretation ----- ? <13.50 ? Not consistent with immunity 13.50-16.49 ?Equivocal >16.49 ? Consistent with immunity The presence of measles IgG suggests immunization or past or current infection with measles virus. For additional information, please refer to http://Minefold.My Single Point/faq/TPJ614 (This link is being provided for informational/ educational purposes only.) Mumps Antibody (IgG), Immune Status 177.00 AU/mL 04/07/2024 10:52 PM EST [facility] Comment: AU/mL ? Interpretation ------- ? <9.00 ? Not consistent with immunity 9.00-10.99 ?Equivocal >10.99 ?Consistent with immunity The presence of mumps IgG antibody suggests immunization or past or current infection with mumps virus. Rubella Antibody (IgG), Immune Status <0.90(L) Index 04/07/2024 10:52 PM EST [facility] Comment: ?Index ?Interpretation ?----- ?<0.90 ?Not consistent with immunity ?0.90-0.99 ?Equivocal ?> or = 1.00 ?Consistent with immunity The presence of rubella IgG antibody suggests immunization or past or current infection with rubella virus. Blood Structure of peripheral vein / Unknown Venipuncture / Unknown 04/07/2024 11:40 AM EST 04/07/2024 11:56 AM EST [facility] - 04/07/2024 10:52 PM EST [facility] Received Date: Saurabh Heck MD LAB BLOOD ORDERABLES Final Result Performing Organization Address City/State/[facility] Co de Phone Number [facility] [address] [facility] [address]rd Floor, [place] [address], [employer] [facility] [address], [place] [address], * (ABNORMAL) Herpes Simplex Virus 1&2, IgG (04/07/2024 11:40 AM EST) HSV 1 IgG Type Specific Ab 1.19(H) index 04/11/2024 1:29 PM EST [facility] HSV 2 IgG Type Specific Ab 10.00(H) index 04/11/2024 1:29 PM EST [facility] Comment: ?Index ?Interpretation ?----- ?<0.90 ?Negative ?0.90-1.09 [...] screening. For additional information, please refer to http://education.My Single Point/faq/NEG666 (This link is being provided for informational/ educational purposes only.) ?? Blood Structure of peripheral vein / Unknown Venipuncture / Unknown 04/07/2024 11:40 AM EST 04/07/2024 11:56 AM EST Narrative [facility] - 04/11/2024 1:29 PM EST [facility] Received Date: us Saurabh Heck MD LAB BLOOD ORDERABLES Final Result [facility] [address] [facility] [address] [place] [address], [employer] [facility] [address] [facility] 3rd Floor, [place] [address], * RPR (Diagnosis) w/Reflex to Titer & TPPA Confirm (04/07/2024 11:40 AM EST) RPR W/Refl Titer NON-REACT EMILIANO NON-REACT EMILIANO 04/08/2024 9:32 AM EST [facility] Blood Structure of peripheral vein / Unknown Venipuncture / Unknown 04/07/2024 11:40 AM EST 04/07/2024 11:56 AM EST Narrative [facility] - 04/08/2024 9:32 AM EST [facility] Received Date: Saurabh Heck MD LAB BLOOD ORDERABLES Final Result [facility] [address] [facility] [address] Floor, [place] [address], [employer] [facility] [address] [facility] 3rd Floor, [place] [address], * QuantiFERON-TB Gold Plus, 1 Tube (04/07/2024 11:40 AM EST) [facility] QuantiFERON-TB Gold Plus NEGATIVE NEGATIVE 04/10/2024 8:20 PM EST [facility] Comment: Negative test result. M. tuberculosis complex infection unlikely. NIL 0.10 IU/mL 04/10/2024 8:20 PM EST [facility] Mitogen-NIL >10.00 IU/mL 04/10/2024 8:20 PM EST [facility] TB1-NIL <0.00 IU/mL 04/10/2024 8:20 PM EST [facility] TB2-NIL <0.00 IU/mL 04/10/2024 8:20 PM EST [facility] Comment: The Nil tube value reflects the [...] T-lymphocytes. For additional information, please refer to https://education.questdiagnostics.com/faq/CVF781 (This link is being provided for informational/ educational purposes only.) Blood Structure of peripheral vein / Unknown Venipuncture / Unknown 04/07/2024 11:40 AM EST 04/07/2024 11:52 AM EST Narrative [facility] - 04/10/2024 8:20 PM EST [facility] Received Date: Saurabh Heck MD LAB BLOOD ORDERABLES Final Result [facility] [address] [facility] [address], [place] [address], [employer] [facility] [address] [facility] 3rd Floor, [place] [address], * (ABNORMAL) CBC Auto Differential (04/07/2024 11:40 [...] - 15.0 % 04/07/2024 12:05 PM EST [facility] Platelets 384 140 - 400 10*3/uL 04/07/2024 12:05 PM EST [facility] MPV 9.9 7.5 - 12.5 fL 04/07/2024 12:05 PM EST [facility] Neutrophil % 70.4 % 04/07/2024 12:05 PM EST [facility] Immature Grans % 0.7 0.0 - 0.9 % 04/07/2024 12:05 PM EST [facility] Lymphocyte % 16.9 % 04/07/2024 12:05 PM EST [facility] Monocyte % 5.9 % 04/07/2024 12:05 PM EST [facility] Eosinophil % 5.0 % 04/07/2024 12:05 PM EST [facility] Basophil % 1.1 % 04/07/2024 12:05 PM EST [facility] Neutrophil # 9.08(H) 1.50 - 7.80 10*3/uL 04/07/2024 12:05 PM EST [facility] Immature Grans # 0.09(H) <=0.03 10*3/uL 04/07/2024 12:05 PM EST [facility] Lymphocyte # 2.20 0.85 - 3.90 10*3/uL 04/07/2024 12:05 PM EST [facility] Monocyte # 0.80 0.20 - 0.95 10*3/uL 04/07/2024 12:05 PM EST [facility] Eosinophil # 0.60(H) 0.02 - 0.50 10*3/uL 04/07/2024 12:05 PM EST [facility] Basophil # 0.10 0.00 - 0.20 10*3/uL 04/07/2024 12:05 PM EST [facility] CL[facility]ICAL PATHOLOGY LABORATORY nRBC % 0.0 /100 WBCs 04/07/2024 12:05 PM EST [facility] CLINICAL PATHOLOGY LABORATORY nRBC # <0.01 <0.01 10*3/uL 04/07/2024 12:05 PM EST [facility] Blood Structure of peripheral vein / Unknown Venipuncture / Unknown 04/07/2024 11:40 AM EST 04/07/2024 11:56 AM EST us Saurabh Heck MD LAB BLOOD ORDERABLES Final Result [facility] [address] [place] [address], * (ABNORMAL) Ranulfo-Hawkins Virus VCA Antibody Panel (04/07/2024 11:40 AM EST) EBV Viral Capsid Ag Ab (IGM) <36.00 U/mL 04/07/2024 10:47 PM EST [facility] Comment: ?U/mL ?Interpretation ?---- ?<36.00 ?Negative ?36.00-43.99 ? Equivocal ?>43.99 ?Positive EBV Viral Capsid Ag Ab (IGG) 211.00(H) U/mL 04/07/2024 10:47 PM EST [facility] Comment: ? U/mL ? Interpretation ? ---- ? <18.00 ? Negative ? 18.00-21.99 ?Equivocal ? >21.99 ? Positive EBV Nuclear Ag Ab 396.00(H) U/mL 025 10:47 PM EST [facility] Comment: ? U/mL ? Interpretation ? ---- ? <18.00 ? Negative ? 18.00-21.99 ?Equivocal ? >21.99 ? 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 In infants, a similar pattern may occur as a result of passive maternal transfer of antibody. Blood Structure of peripheral vein / Unknown Venipuncture / Unknown 04/07/2024 11:40 AM EST 04/07/2024 11:55 AM EST Narrative [facility] - 04/07/2024 10:47 PM EST [facility] Received Date: us Saurabh Heck MD LAB BLOOD ORDERABLES Final Result [facility] [address] [facility] [address], [place] [address], [place] [phone] [facility] [address], [place] [address], * Hepatitis C Antibody w/Reflex to PCR (04/07/2024 11:40 AM EST) Hepatitis C Antibody NON-REACT EMILIANO NON-REACT EMILIANO 04/07/2024 7:09 PM EST [facility] Comment: HCV antibody was non-reactive. There is no laboratory evidence of HCV infection. In most cases, no further action is required. However, if recent HCV exposure is suspected, a test for HCV RNA (test code 64235) is suggested. For additional information please refer to http://Minefold.Wedding.com.my/faq/BJN95l0 (This link is being provided for informational/ educational purposes only.) Blood Structure of peripheral vein / Unknown Venipuncture / Unknown 04/07/2024 11:40 AM EST 04/07/2024 11:56 AM EST Narrative [facility] 04/07/2024 7:09 PM EST [facility] Received Date:[id number] us Saurabh Heck MD LAB BLOOD ORDERABLES Final Result Performing Organization Address City/[facility]/ZIP Co de Phone Number [facility] [address], [place] [address], [place] [phone] [employer] [address], [place] [address], [place] [phone] * (ABNORMAL) Hepatitis A Antibody, Total (04/07/2024 11:40 AM EST) Hepatitis A Ab, Total REACTIVE( A) NON-REACT EMILIANO 04/07/2024 7:18 PM EST [facility] Comment: For additional information, please refer to http://Minefold.Wedding.com.my/faq/KGQ044 (This link is being provided for informational/ educational purposes only.) Blood Structure of peripheral vein / Unknown Venipuncture / Unknown 04/07/2024 11:40 AM EST 04/07/2024 11:55 AM EST Narrative [facility] - 04/07/2024 7:18 PM EST [facility] Received Date:[id number] us Saurabh Heck MD LAB BLOOD ORDERABLES Final Result Performing Organization Address City/[facility]/ZIP Co de Phone Number [facility] [address], [place] [address], [place] [phone] [employer] [facility] [address], [place] [address], [place] [phone] * Hepatitis B Core Antibody, Total (04/07/2024 11:40 AM EST) Hepatitis B Core Ab Total NON-REACT EMILIANO NON-REACT EMILIANO 04/08/2024 2:28 AM EST [facility] Comment: For additional information, please refer to http://education.Wedding.com.my/faq/CCE880 (This link is being provided for informational/ educational purposes only.) Blood Structure of peripheral vein / Unknown Venipuncture / Unknown 04/07/2024 11:40 AM EST 04/07/2024 11:56 AM EST Narrative [facility] - 04/08/2024 2:28 AM EST [facility] Received Date: us Saurabh Heck MD LAB BLOOD ORDERABLES Final Result [facility] [address] [facility] [address], [place] [address], [place] [phone] [employer] [facility] [address], [place] [address], [place] [phone] * ABO/Rh Blood Type (04/07/2024 11:40 AM EST) ABO Blood Type O 04/07/2024 1:05 PM EST [facility] RH Type Positive 04/07/2024 1:05 PM EST [facility] Blood Structure of peripheral vein / Unknown Venipuncture / Unknown 04/07/2024 11:40 AM EST 04/07/2024 12:17 PM EST us Saurabh Heck MD LAB BLOOD BANK TEST ORDERAB LES Final Result [facility] [address] [place] [address], [place] [phone] * (ABNORMAL) Hepatitis B Surface Antibody (04/07/2024 11:40 AM EST) Hepatitis B Surface Ab Immunity, Qn <5(L) > OR = 10 mIU/mL 04/07/2024 7:17 PM EST [facility] Comment: PATIENT DOES NOT HAVE IMMUNITY TO HEPATITIS B VIRUS. For additional information, please refer to http://Minefold.Wedding.com.my/faq/JDA639 (This link is being provided for informational/ educational purposes only). Blood Structure of peripheral vein / Unknown Venipuncture / Unknown 04/07/2024 11:40 AM EST 04/07/2024 11:55 AM EST Narrative [facility] - 04/07/2024 7:17 PM EST [facility] Received Date: us Saurabh Heck MD LAB BLOOD ORDERABLES Final Result [facility] [address] [facility] [address], [place] [address], [employer] [facility] [address] [facility] 3rd Floor, [place] [address], [place] [phone] * Hepatitis B Surface Antigen w/Confirmation (04/07/2024 11:40 AM EST) Pathologist [facility] Hepatitis B Surface Antigen NON-REACT EMILIANO NON-REACT EMILIANO 04/07/2024 7:18 PM EST [facility] Comment: For additional information, please refer to http://Minefold.Wedding.com.my/faq/MQC047 (This link is being provided for informational/ educational purposes only.) Blood Structure of peripheral vein / Unknown Venipuncture / Unknown 04/07/2024 11:40 AM EST 04/07/2024 11:56 AM EST Narrative [facility] - 04/07/2024 7:18 PM EST [facility] Received Date: us Saurabh Heck MD LAB BLOOD ORDERABLES Final Result [facility] [address] [facility] [address] Floor, [address] [place] [address], [facility] [address] [facility] [address], [address] [place] [address], * (ABNORMAL) Cytomegalovirus Antibody, IgG (04/07/2024 11:40 AM EST) Pathologist [facility] Cytomegalovirus Antibody (IgG) 8.50(H) U/mL 04/07/2024 10:50 PM EST [facility] Comment: ? U/mL ? Interpretation ? ----- ? <0.60 ? Negative ? 0.60-0.69 ? Equivocal ? > or = 0.70 ?? Positive A positive result indicates that the patient has antibody to CMV. It does not differentiate between an active or past infection. Blood Structure of peripheral vein / Unknown Venipuncture / Unknown 04/07/2024 11:40 AM EST 04/07/2024 11:56 AM EST Narrative [facility] - 04/07/2024 10:50 PM EST [facility] Received Date:[id number] Saurabh Heck MD LAB BLOOD ORDERABLES Final Result [facility] [address] [facility] [address] Floor, [address] [place] [address], [place] [phone] [employer] [address], [place] [address], [place] [phone] * PTT (04/07/2024 11:40 AM EST) aPTT 31.9 23.0 - 32.0 Seconds 04/07/2024 12:22 PM EST [facility] Comment: Current PTT reagent is not sensitive to detect all Lupus Anticoagulant (LA) Inhibitor Cases. ?? If a LA is suspected, please order a Lupus Anticoagulation w/ Reflex Test which is performed at [facility] in [place], [place]. Blood Structure of peripheral vein / Unknown Venipuncture / Unknown 04/07/2024 11:40 AM EST 04/07/2024 11:56 AM EST Saurabh Heck MD LAB BLOOD ORDERABLES Final Result Performing Organization Address City/[facility]/ZIP Co de Phone Number [facility] [facility] [facility] [address] [place] [address], * Protime-INR (04/07/2024 11:40 AM EST) PT 10.6 9.6 - 12.4 Seconds 04/07/2024 12:22 PM EST [facility] INR 1.0 0.9 - 1.1 04/07/2024 12:22 PM EST [facility] Comment:The optimal therapeu tic INR range for patients treated with Vitamin K antagonists (VKAS, e.g., Warfarin) is 2.0 to 3.5. Discuss the desired range with your doctor/care team. Blood Structure of peripheral vein / Unknown Venipuncture / Unknown 04/07/2024 11:40 AM EST 04/07/2024 11:56 AM EST us Saurabh Heck MD LAB BLOOD ORDERABLES Final Result [facility] [address] [place] [address], * Varicella Zoster Antibody, IgG (04/07/2024 11:40 AM EST) Varicella Zoster Virus Antibody 31.20 S/CO 04/08/2024 5:16 PM EST [facility] Comment: ?Signal to Cut-off ? S/CO ?Interpretation [...] EST 04/07/2024 11:56 AM EST Narrative [facility] - 04/08/2024 5:16 PM EST [facility] Received Date: Saurabh Heck MD LAB BLOOD ORDERABLES Final Result [facility] [address] [facility] [address], [place] [address], [facility] [address], [place] [address], * (ABNORMAL) BUN (04/07/2024 11:40 AM EST) BUN 46(H) 7 - 23 mg/dL 04/07/2024 12:25 PM EST [facility] Blood Structure of peripheral vein / Unknown Venipuncture / Unknown 04/07/2024 11:40 AM EST 04/07/2024 11:56 AM EST us Saurabh Heck MD LAB BLOOD ORDERABLES Final Result Performing Organization Address [facility]/ZIP Co de Phone Number [facility] [address] [place] [address], [place] * (ABNORMAL) ALT (04/07/2024 11:40 AM EST) ALT 7(L) 10 - 40 U/L 04/07/2024 12:25 PM EST [facility] Blood Structure of peripheral vein / Unknown Venipuncture / Unknown 04/07/2024 11:40 AM EST 04/07/2024 11:56 AM EST us Saurabh Heck MD LAB BLOOD ORDERABLES Final Result Performing Organization Address City/[facility]/ZIP Co de Phone Number [facility] [address] [place] [address], [place] * AST (04/07/2024 11:40 AM EST) AST 16 10 - 40 U/L 04/07/2024 12:25 PM EST [facility] Blood Structure of peripheral vein / Unknown Venipuncture / Unknown 04/07/2024 11:40 AM EST 04/07/2024 11:56 AM EST us Saurabh Heck MD LAB BLOOD ORDERABLES Final Result Performing Organization Address [facility]/ZIP Co de Phone Number [facility] [address] [place] [address], [place] * PSA (04/07/2024 11:40 AM EST) PSA 0.20 <=4.00 ng/mL 04/07/2024 12:37 PM EST [facility] Comment: The total PSA value from this assay system is standardized against the WHO standard. ??The test result will be slightly lower (< 3 %) when compared to the equimolar-standardized total PSA(Nusrat Stephanie). ??Comparison of Serial PSA results should be [...] BLOOD ORDERABLES Final Result Performing Organization Address [facility] Co de Phone Number [facility] [address] [place] [address], [place] * Phosphorus (04/07/2024 11:40 AM EST) Phosphorus 4.4 2.5 - 4.5 mg/dL 04/07/2024 12:25 PM EST [facility] Blood Structure of peripheral vein / Unknown Venipuncture / Unknown 04/07/2024 11:40 AM EST 04/07/2024 11:56 AM EST Saurabh Heck MD LAB BLOOD ORDERABLES Final Result Performing Organization Address [facility] Co de Phone Number [facility] [address] [place] [address], [place] * (ABNORMAL) Creatinine (04/07/2024 11:40 AM EST) Creatinine 4.84(H) 0.60 - 1.30 mg/dL 04/07/2024 12:25 PM EST [facility] eGFR 13(L) >=60 mL/min/1 .73m2 04/07/2024 12:25 PM EST [email or web address] Comment:The estimated glomer ular filtration rate (eGFR) is calculated using a new formula developed by the NKF-ASN task force to eliminate race-based correction factors. The new formula uses serum/plasma creatinine, age, and gender to determine eGFR. A value below 60mls/min might indicate kidney disease and will be flagged. For additional information, see Marshall et al, Am J Kidney Dis. 2021;79(2):268- 288, A Unifying Approach for GFR estimation: Recommendations of the NKF-ASN Task Force on Reassessing the Inclusion of Race in Diagnosing Kidney Disease . Blood Structure of peripheral vein / Unknown Venipuncture / Unknown 04/07/2024 11:40 AM EST 04/07/2024 11:56 AM EST us Saurabh Heck MD LAB BLOOD ORDERABLES Final Result Performing Organization Address City/[facility]/ZIP Co de Phone Number [facility] [address] [place] [address], [place] * Calcium (04/07/2024 11:40 AM EST) Calcium 8.8 8.6 - 10.5 mg/dL 04/07/2024 12:25 PM EST [facility] Blood Structure of peripheral vein / Unknown Venipuncture / Unknown 04/07/2024 11:40 AM EST 04/07/2024 11:56 AM EST us Saurabh Heck MD LAB BLOOD ORDERABLES Final Result [facility] [address] [place] [address], [place] * Bilirubin, Direct (04/07/2024 11:40 AM EST) Bilirubin, Direct <0.1 <=0.4 mg/dL 04/07/2024 12:30 PM EST [facility] Blood Structure of peripheral vein / Unknown Venipuncture / Unknown 04/07/2024 11:40 AM EST 04/07/2024 11:56 AM EST us Saurabh Heck MD LAB BLOOD ORDERABLES Final Result [facility] [address] [place] [address], [place] * Bilirubin, Total (04/07/2024 11:40 AM EST) Bilirubin, Total 0.2 0.2 - 1.2 mg/dL 04/07/2024 12:30 PM EST [facility] Blood Structure of peripheral vein / Unknown Venipuncture / Unknown 04/07/2024 11:40 AM EST 04/07/2024 11:56 AM EST us Saurabh Heck MD LAB BLOOD ORDERABLES Final Result Performing Organization Address City/[facility]/ZIP Co de Phone Number [facility] [address] [place] [address], [place] * Albumin (04/07/2024 11:40 AM EST) Albumin 3.7 3.5 - 5.2 g/dL 04/07/2024 12:25 PM EST [facility] Blood Structure of peripheral vein / Unknown Venipuncture / Unknown 04/07/2024 11:40 AM EST 04/07/2024 11:56 AM EST us Saurabh Heck MD LAB BLOOD ORDERABLES Final Result [employer] [facility] [address] [place] [address], [place] from Last [address] [place] [address] [place] [address] Care Teams Community Music Therapist Relationship Specialty Start Date End Date Patient, Has No Pcp Or Ref DO NOT EDIT THIS RECORD VIA PROVIDER ON THE FLY PCP - General Track Layer 04/07/24
== END 2024-06-01 10:24 | disposition home or self-care (01) ==
LOC: HO.PMC 09:49
PROVIDERS: PCP Internal Medicine; Referring Provider Internal Medicine Hypertension Specialist; Visit Provider Registered Nurse Emergency
DX: M47.812 Spondylosis without myelopathy or radiculopathy, cervical region (principal); M25.50 Pain in unspecified joint; M79.7 Fibromyalgia; E11.40 Type 2 diabetes mellitus with diabetic neuropathy, unspecified; M54.2 Cervicalgia
CPT/HCPCS: 99213; G2211

== ENCOUNTER → 2024-06-01 09:48 | Outpatient (BNVA) | payer OTHER, SELFPAY | PROVIDERS: PCP Internal Medicine; Referring Provider Internal Medicine Hypertension Specialist; Visit Provider Registered Nurse Emergency | DX: E11.22 Type 2 diabetes mellitus with diabetic chronic kidney disease (principal); E11.40 Type 2 diabetes mellitus with diabetic neuropathy, unspecified; E11.628 Type 2 diabetes mellitus with other skin complications; I13.2 Hypertensive heart and chronic kidney disease with heart failure and with stage 5 chronic kidney disease, or end stage renal disease; N18.6 End stage renal disease; E78.5 Hyperlipidemia, unspecified; I50.32 Chronic diastolic (congestive) heart failure; L08.9 Local infection of the skin and subcutaneous tissue, unspecified; M47.812 Spondylosis without myelopathy or radiculopathy, cervical region; M79.7 Fibromyalgia; M54.2 Cervicalgia; Z99.2 Dependence on renal dialysis | CPT/HCPCS: 99212 ==

== ENCOUNTER 2024-06-01 13:40 | Outpatient (AMB) | payer OTHER, SELFPAY ==
--- NOTE | 2024-06-01 15:06 | MHC.PC.OV ---
Vital Signs 06/01/24 15:09 BP 150/100 H Blood Pressure Location Rt brachial Position Sitting Pulse 100 Pulse Source Pulse Oximeter Pulse Oximetry (%) 94 Oxygen Delivery Method Room Air Intake Visit Reasons: HDF ~ Post hospital discharge FU-per dr Schaefer Allergies No Known Allergies Allergy (Verified 06/12/24 22:43) Medication List - Last Reconciled 06/01/24 by Riya Olmos MD amlodipine 10 mg PO DAILY aspirin 81 mg PO DAILY atorvastatin 40 mg PO BEDTIME [bed rail As directed] calcitriol 1 mcg PO DIRECTED carvedilol 12.5 mg PO BID Dexcom G6 Sensor (blood-glucose sensor) As directed change every 10 days LEE NS Dexcom G6 Transmitter (blood-glucose transmitter) As directed NS doxycycline hyclate 100 mg PO BID ergocalciferol (vitamin D2) (Vitamin D2) 1,250 mcg PO SA FreeStyle Lancets (lancets) USE TO TEST FINGER STICK BLOOD SUGAR 3 (THREE) TIMES A DAY NS furosemide 80 mg PO DAILY gabapentin 100 mg PO DAILY Grab bar one long bar 33-36 inches for inside the shower, one regular bar 18-24 inches for outside the shower [Hand rails As directed] hydralazine 10 mg PO TID insulin aspart U-100 8 units subcut TIDAC insulin glargine (Lantus Solostar U-100 Insulin) 20 units subcut BEDTIME insulin syringe-needle U-100 (Comfort EZ Insulin Syringe) USE WITH insulin two (2) times a day ipratropium-albuterol 0.5 mg-3 mg(2.5 mg base)/3 mL 3 mL inhalation Q6-8H PRN 30 days isosorbide mononitrate ER 60 mg PO DAILY nicotine 1 patch transdermal DAILY 28 days omega-3 acid ethyl esters (Lovaza) 2 caps PO BID [overbed table with wheels As directed] pen needle, diabetic (Comfort EZ Pen Chetek) USE DIRECTED 3 (THREE) TIMES A DAY [shower bar As directed] [Shower seat As directed] sodium zirconium cyclosilicate (Lokelma) 10 grams PO DAILY Symbicort 160-4.5 mcg/actuation (budesonide-formoterol) 2 puffs PO Q12H NS tirzepatide (Mounjaro) 7.5 mg subcut MO [wheelchair As directed] [wheelchair As directed] [wheelchair ramp Pt is wheelchair bound, needs a ramp to exit the front door and 6 steps to get to the sidewalk] Tobacco use date assessed: 06/01/24 Dental Screening Dental Screen Date: 11/05/23 HPI HDF ~ Post hospital discharge FU-per dr Schaefer HPI Details 53-year-old male, with history of obesity, type 2 diabetes mellitus, hypertension, hyperlipidemia, end-stage renal disease on dialysis, diastolic congestive heart failure with an LV ejection fraction of 50-55% asthma/obstructive sleep apnea/obesity hypoventilation syndrome, noncompliant with CPAP at bedtime, has peripheral vascular disease, generalized anxiety disorder and depression, peripheral neuropathy, diabetic foot infections with chronic foot ulcer status post right foot 1st to 4th metatarsal toe amputation, here today for follow-up after recent admission at the [facility] he was initially admitted 05/05 7-2024 for treatment of a foot infection and discharge on doxycycline. However there was for evaluation of an abscess on the same foot which was drained by his nursing manager and was recently admitted [facility] for IV antibiotic administration. He was started on vancomycin and Zosyn with clinical improvement . Patient however wanted to be discharged home and was sent home with Bactrim DS to be given after hemodialysis on Thursday and Thursday advised to follow-up with his nursing manager Dr. Suazo. CT of right lower extremity without contrast did not show any evidence of osteomyelitis For his diabetes mellitus he was continued on Lantus 24 units at bedtime and is currently on sliding scale insulin coverage. He has VNA after discharge for wound care For use hypertension and hyperlipidemia he was continued on baby aspirin 81 mg daily, atorvastatin 40 mg daily, amlodipine 10 mg daily Coreg 25 mg 1 tablet twice a day, hydralazine 10 mg 3 times a day and isosorbide mononitrate 60 mg daily as well as Lasix 80 mg once a day. He was continued on nortriptyline 50 mg at bedtime and prazosin 1 mg at bedtime for his depression. . Patient is here now requesting for prescription for transport wheelchair, shower chair that is half on and half off the tub, raised toilet seat and a walker with a seat to be sent to his medical supply store. [facility] Medical History (Updated 06/12/24 @ 23:56 by Riya Olmos MD) Diabetic infection of right foot Cellulitis of right foot Intermittent lightheadedness History of CVA with residual deficit Left cervical lymphadenopathy Obesity (BMI 30-39.9) Normocytic normochromic anemia COPD (chronic obstructive pulmonary disease) Smoker unmotivated to quit RODGER (obstructive sleep apnea) Generalized anxiety disorder 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 Essential hypertension Allergic rhinitis Mixed dyslipidemia Amputation, toe, traumatic Vitamin D deficiency Diabetes mellitus with neuropathy Diabetes mellitus with hyperglycemia, with long-term current use of insulin Osteoarthritis Fibromyalgia Spondylosis of cervical spine Surgical History History of foot surgery Family History Father HTN (hypertension) Diabetes Mental health disorder Mother HTN (hypertension) Brother Stroke Social History Household Members: Spouse Housing: House Do you presently have visiting nurse or other home services: No Alcohol intake: never Patient Tobacco Use Status: Former Tobacco user Cigarette Packs Per Day: 1 Cigarettes Per Day: 20.0 Years Smoked: 35 e-Cigarette/Vaping Use: Never Used Second Hand Smoke Exposure: No service: No Current occupational status: disabled Cognitive needs: No Hearing needs: No Vision needs: No Questionnaire Thrive Questionnaire Date Thrive assessed: 11/05/23 I am a: Patient What is your living situation today?: I have a steady place to live Within the past 12 months, did the food you bought not last and you didn't have the money to get more?: Never true Within the past 12 months, did you worry whether your food would run out before you got money to buy more?: Never true Do you have trouble paying for medicines?: No Do you have trouble getting transportation to medical appointments?: No Do you have trouble paying your heating and electricity bill?: No Do you have trouble taking care of your child, family member or friend?: No Do you have trouble with day-to-day activities such as bathing, preparing meals, shopping, managing finances, etc.?: No Are you currently unemployed and looking for a job?: No Are you interested in more education?: No Please select the resources that you would like help with: None Currently or been in a relationship where the following occur: I choose not to answer THRIVE Score: 0 DEBORAH-7 AMB Questionnaire DEBORAH-7 Date DEBORAH - 7 assessed: 06/29/23 Source: Developed by Drs. Zachary Luis, Daphnie Nina, Froylan Jose and colleagues, with an educational samuel from [employer]. Review of Systems Const All systems reviewed & are unremarkable except as noted in HPI and below Eyes Details: [facility], currently being seen for glaucoma and diabetic retinopathy screening Reports no additional complaints ENT Reports no additional complaints Card Denies chest pain at rest, Denies irregular heart rhythm and Denies leg edema Resp Reports as per HPI GI Reports no additional complaints Reports no additional complaints Musc Details: Sees Dr. Hernandez for Podiatry Reports abnormal gait Skin/Breast Reports system reviewed and no additional complaints, except as documented Neuro Reports abnormal gait Psych Reports no additional complaints Endo Reports no additional complaints Jomar/Lymph Reports no additional complaints Aller/Immun Reports no additional complaints Physical exam (Primary Care) Vital Signs: Last Vital Signs Pulse 100 06/01/24 15:09 BP 150/100 H 06/01/24 15:09 Pulse Ox 94 06/01/24 15:09 Oxygen Delivery Method Room Air 06/01/24 15:09 Tobacco/Smoking Status: Tobacco use Status Tobacco use date assessed 06/01/24 06/01/24 15:09 Patient Tobacco Use Status Former Tobacco user 06/01/24 15:09 e-Cigarette/Vaping Use Never Used 06/01/24 15:09 Thrive Assessment: Date of Thrive Assessment Date Thrive assessed 11/05/23 06/01/24 15:09 Currently or been in a relationship where the following occur: I choose not to answer Const Other: Daughter accompanying patient General: alert Orientation/consciousness: patient oriented x3 Limitations: wheelchair HENMT Ears: external ears normal General nose exam: Normal external nose present Mouth: Normal oral and palatal mucosa present and moist mucous membranes Eyes General: appearance normal, both eyes and all related structures Neck Neck: Yes full ROM, Yes no lymphadenopathy and Yes supple Resp Effort & Inspection: normal respiratory effort and able to speak in complete sentences Auscultation: clear to auscultation bilaterally Cardio Rate: regular rate Rhythm: regular rhythm Heart sounds: S1 normal heart sound present and S2 normal heart sound present GI Palpation (GI): Soft to palpation and nontender Auscultation: normal bowel sounds Skin Other: Clean incised wound on dorsal aspect of right foot, no active drainage Neuro General: patient oriented x3 and no focal motor deficits Cranial nerves: Yes CN's II-XII intact bilaterally Cognition (Neuro): normal cognition Extrem General: Yes amputation noted (For toes on the right, only the 5th toe remaining) Psych Appearance: grossly normal and well kempt Mental Status: mental status grossly normal Speech and movement: Normal speech and movement present Affect: normal affect Coding Level of Care Code Est Pt Level 4 (29917) Complex EM visit Add On G2211 Diagnoses Essential hypertension I10 Type 2 diabetes mellitus with diabetic neuropathy, without long-term current use of insulin E11.40 Diabetes mellitus type: type 2 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40 - Type 2 diabetes mellitus with diabetic neuropathy, unspecified Plan: Continued on Lantus , insulin by sliding coverage , and Mounjaro 7.5 mg (3) Diabetic infection of right foot: Code(s): E11.628 - Type 2 diabetes mellitus with other skin complications; L08.9 - Local infection of the skin and subcutaneous tissue, unspecified Category: Medical Plan: Follow-up with Dr. Mahoney, his nursing manager, and has VNA for wound care (4) ESRD on hemodialysis: Code(s): N18.6 - End stage renal disease; Z99.2 - Dependence on renal dialysis Category: Medical Plan: Currently on hemodialysis 3 times a week
[2024-06-01 15:09] VITALS: BP 150/100; PULSE 100; O2SAT 94
--- OUTSIDE RECORDS SUMMARY | 2024-06-01 16:20 | XMS_ITS ---
Author Organization [facility] Address [address] [place] [address] Care Team Providers Care Stove Installer Name Role Phone Patient, Has No Pcp Or Ref Primary Care Provider Unavailable Transplant Episode Kidney Candidate [facility] ([place], [place]) - [facility] Evaluation began on 04/07/2024 Marked as Active on 04/07/2024 Kidney CoordinatorAnabell Arana RN Fax: N/A Email: N/A Scores Score Value Updated Exceptions/Reas ons CPRA Not available EPTS (Calc) 55 06/01/2024 Care Team Name Role Phone Fax Email Anabell Arana RN Kidney Coordinator [phone] N/A N/A Riya Olmos MD [facility] Primary Care Attending [phone] N/A N/A Cole Del Valle Referring Physician [phone] N/A Events Pre-Transplant Referred: 03/02/2024 Evaluation began: 04/07/2024 Dialysis History Dialysis History Start End Type Comments Center 03/03/2024 Home Hemodialysis M, Tu, Th, F [facility] P [facility] Dialysis [facility] Information Center Phone Fax Address [facility] [phone] [address] [facility] [address]
--- OUTSIDE RECORDS SUMMARY | 2024-06-01 16:21 | XMS_ITS | Clinical Summary ---
Author Organization [facility] Address [address] [place] [address] Phone Care Team Providers Care Assessment Coordinator Name Role Phone Unavailable Primary Care Provider Unavailabl e Encounters Date Type Department Care Team Description 05/16/2024 Lab Requisition [facility] - Main Lab [address] [facility] [place] [address] Cole Del Valle MD Anemia, unspecified 04/15/2024 Telephone [facility]iology [address] [place] [address] Provider, Not In System Medical Records from Last 3 Months Surgical History Surgery Date Site/Laterality Comments OTHER SURGICAL HISTORY 11/06/2016 Right PROCEDURE: ---- OTHER ----; COMMENT: 4 toe amp right foot BYPASS GRAFT PROCEDURE: [place] AMPUTATION TOE METATARSOPHALANGEAL JOINT; COMMENT: rt foot Medical History Medical History Date Comments MRSA infection 04/27/2018 DX:MRSA infectio n; COMMENT: Recurrent boils Osteomyelitis ([facility] V24, [facility] V28) 11/17/2018 DX:Osteomyelitis ([facility]); COMM ENT: From right diabetic foot infection Essential hypertension 10/16/2017 DX:Essent ial hypertension PAD (peripheral artery disea se) ([facility] V24) 04/21/2018 DX:PAD (peripheral artery di sease) ([facility]) DM (diabetes mellitus), type 2, [...] to t ype 2 diabetes mellitus ([facility] V24, [facility] V28) 04/21/2018 DX:Ulcer of right foot due t o type 2 diabetes mellitus ([facility]) Hyperlipidemia 05/25/2019 DX:Hyperlipidemi a 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 [facility] Polysomnogram treatment study. Da* Tobacco use disorder 10/16/2017 DX:Tobacco use disorder Moderate episode of recurren t major depressive disorder ([facility] V24, [facility] V28) 11/12/2017 DX:Moderate episode of recur rent major depressive disorder ([facility]) Fibromyalgia 01/10/2019 DX:Fibromyalgia; COMMENT: Follows [...] HEMETOLOGY METHOD 05/16/2024 12:[address] [facility] Blood Venous blood specimen / Unknown 05/16/2024 9:30 AM EDT 05/16/2024 12:28 PM EDT Cole Del Valle MD LAB BLOOD ORDERABL ES Final Result [facility] [address] [place] [address], [place] [phone] from Last 3 Months Insurance [place]ICAID - [place]
--- OUTSIDE RECORDS SUMMARY | 2024-06-01 16:21 | XMS_ITS | Referral Summary ---
Author Organization [facility] Address [address] [place] [address] Care Team Providers Care Director Strategic Planning Name Role Phone Patient, Has No Pcp Or Ref Primary Care Provider Unavailable Encounters Date Type Department Care Team Description 05/24/2024 Abstract [facility] Transplant Department [address] [place] [address] Anabell Arana, RN 05/17/2024 Telephone [facility] Transplant Department [address] [place] [address] Anabell Arana, RN 05/03/2024 Telephone [facility] Transplant Department [address] [place] [address] Anabell Arana, RN 04/27/2024 8:41 AM EDT - 04/27/2024 11:59 PM EDT Hospital Encounter [facility] Ultrasound [address] [place] [address] Saurabh Heck MD Type 2 diabetes mellitus with other circulatory complication, with long-term current use of insulin Discharge Disposition: Home or Self Care (01) 04/20/2024 Orders Only [facility] Nephrology Clinic [address] [place] [address] Weight Yardage Checker: Saurabh Brink MD Type 2 diabetes mellitus with other circulatory complication, with long-term current use of insulin (Primary Dx) 04/19/2024 Orders Only [facility] [address] [place] [address] Weight Yardage Checker: Saurabh Brink MD 04/15/2024 Abstract [facility] Transplant Department [address] [place] [address] Valerio Barrow 04/11/2024 Abstract [facility] Transplant Department [address] [place] [address] Anabell Arana RN 04/07/2024 11:20 AM EST Lab [facility] [place] Lab Draw Site [address] [place] [address] Pre-transplant evaluation for kidney transplant; Stage 4 chronic kidney disease; Weak urinary stream 04/07/2024 10:15 AM EST Office Visit [facility] Renal Transplant [address] [place] [address] Saurabh Heck MD Pre-transplant evaluation for end stage renal disease (Primary Dx); 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, with long-term current use of insulin; Chronic obstructive pulmonary disease, unspecified COPD type; History of CVA (cerebrovascular accident); Hypertension secondary to other renal disorders; At risk for obstructive sleep apnea; Mixed hyperlipidemia 04/07/2024 9:30 AM EST Social Work [facility] Renal Transplant [address] [place] [address] Valerio Barrow 04/07/2024 8:15 AM EST Evaluation [facility] Renal Transplant [address] [place] [address] Anabell Arana RN Pre-transplant evaluation for kidney transplant (Primary Dx) 04/07/2024 8:00 AM EST Office Visit [facility] Renal Transplant [address] [place] [address] Nannette Pereira RN Pre-transplant evaluation for kidney transplant (Primary Dx) 04/06/2024 Orders Only [facility] Transplant Department [address] [place] [address] Anabell Arana RN 04/06/2024 Orders Only [facility] Transplant Department [address] [place] [address] Anabell Arana RN Pre-transplant evaluation for kidney transplant (Primary Dx); Stage 4 chronic kidney disease; Weak urinary stream 04/05/2024 Telephone [facility] Transplant Department [address] [place] [address] Anabell Arana RN 03/09/2024 Telephone [facility] Transplant Department [address] [place] [address] Sharmila Mathis RN from Last 3 Months [...] Info) Description 06/15/2024 2:30 PM EDT Appointment [facility] ACC Building Cardiac Ultrasound [address] [place] [address] Saurabh Heck MD [address] [place] [address] 06/15/2024 3:45 PM EDT Appointment [facility] CT Scan [address] [place] [address] Saurabh Heck MD [address] [place] [address] 04/06/2025 11:20 AM EST Follow-Up [facility] Renal Transplant [address] [place] [address] Saurabh Heck MD [address] [place] [address] Procedures * Due to [place] state law, this organization might not be [...] chronic kidney disease QUANTIFERON-TB GOLD PLUS, 1 [id number] Routine 04/07/2024 11:40 AM EST Pre-transplant evaluation for kidney transplant Stage 4 chronic kidney disease RPR (DIAGNOSIS) W/REFLEX TO TITER & TPPA [id number] Routine 04/07/2024 11:40 AM EST Pre-transplant evaluation for kidney transplant Stage 4 chronic kidney disease VARICELLA ZOSTER ANTIBODY, IGG Routine 04/07/2024 11:40 AM EST Pre-transplant evaluation for kidney transplant Stage 4 chronic kidney disease HLA TRANSPLANT WORK-UP (ALLELE LEVEL A/B/C/DRB1/CRE371/DQA1/ DQB1/DPA1/DPB1) Routine 04/07/2024 11:40 AM EST Pre-transplant [...] Last 3 Months Results * Due to [place] state law, this organization might not be [...] The apical and parasternal views were obtained. Tangoe enhancing agent used. Stress Findings A pharmacological [...] Re sult * HLA Transplan Work-Up(Allele Level A/B/C/DRB1/YZW149/DQA1/DQB1/DPA1/DPB1) (04/07/2024 11:40 AM EST) [facility] Histocompatibility Laboratory Information See Below 04/13/2024 4:33 PM EST [facility] Comment: OLGA: ??[id number] ?Director: ??Francy Fisher MD. [facility] PFI: ??[id number] UNOS: ??[id number] This test [...] ORDERABLES Glenn guy - Final [facility] [address] [facility] Rm: [id number] [place] [address], * (ABNORMAL) MMR Panel, IgG (04/07/2024 11:40 AM EST) Measles Antibody (IgG), Immune Status >300.00 AU/mL 04/07/2024 10:52 PM EST [facility] Comment: AU/mL ?Interpretation ----- ? <13.50 ? Not consistent with immunity 13.50-16.49 ?Equivocal >16.49 ? Consistent with immunity The presence of measles IgG suggests immunization or past or current infection with measles virus. For additional information, please refer to http://Karmasphere.Reflex/faq/HSE476 (This link is being provided for informational/ educational purposes only.) Mumps Antibody (IgG), Immune Status 177.00 AU/mL 04/07/2024 10:52 PM EST [facility] Comment: AU/mL ? Interpretation ------- ? <9.00 ? Not consistent with immunity 9.00-10.99 ?Equivocal >10.99 ?Consistent with immunity The presence of mumps IgG antibody suggests immunization or past or current infection with mumps virus. Rubella Antibody (IgG), Immune Status <0.90(L) Index 04/07/2024 10:52 PM EST [facility] Comment: ?Index ?Interpretation ?----- ?<0.90 ?Not consistent with immunity ?0.90-0.99 ?Equivocal ?> or = 1.00 ?Consistent with immunity The presence of rubella IgG antibody suggests immunization or past or current infection with rubella virus. Blood Structure of peripheral vein / Unknown Venipuncture / Unknown 04/07/2024 11:40 AM EST 04/07/2024 11:56 AM EST [facility] - 04/07/2024 10:52 PM EST [facility] Received Date: Saurabh Heck MD LAB BLOOD ORDERABLES Final Result Performing Organization Address City/State/[facility] Co de Phone Number [facility] [address] [facility] [address], [place] [address], [facility] [address], [place] [address], * (ABNORMAL) Herpes Simplex Virus 1&2, IgG (04/07/2024 11:40 AM EST) HSV 1 IgG Type Specific Ab 1.19(H) index 04/11/2024 1:29 PM EST [facility] HSV 2 IgG Type Specific Ab 10.00(H) index 04/11/2024 1:29 PM EST [facility] Comment: ?Index ?Interpretation ?----- ?<0.90 ?Negative ?0.90-1.09 [...] screening. For additional information, please refer to http://education.Reflex/faq/KZH156 (This link is being provided for informational/ educational purposes only.) ?? Blood Structure of peripheral vein / Unknown Venipuncture / Unknown 04/07/2024 11:40 AM EST 04/07/2024 11:56 AM EST Narrative [facility] - 04/11/2024 1:29 PM EST [facility] Received Date: us Saurabh Heck MD LAB BLOOD ORDERABLES Final Result [facility] [address] [facility] [address] [place] [address], [facility] [address] [facility] [address] Floor, [place] [address], * RPR (Diagnosis) w/Reflex to Titer & TPPA Confirm (04/07/2024 11:40 AM EST) RPR W/Refl Titer NON-REACT EMILIANO NON-REACT EMILIANO 04/08/2024 9:32 AM EST [facility] Blood Structure of peripheral vein / Unknown Venipuncture / Unknown 04/07/2024 11:40 AM EST 04/07/2024 11:56 AM EST Narrative [facility] BASHIR - 04/08/2024 9:32 AM EST [facility] Received Date: Saurabh Heck MD LAB BLOOD ORDERABLES Final Result [facility] B[facility] [address] [facility] [address] Floor, [place] [address], [facility] [address] [facility] [address], [place] [address], * QuantiFERON-TB Gold Plus, 1 Tube (04/07/2024 11:40 AM EST) [facility] QuantiFERON-TB Gold Plus NEGATIVE NEGATIVE 04/10/2024 8:20 PM EST [facility] Comment: Negative test result. M. tuberculosis complex infection unlikely. NIL 0.10 IU/mL 04/10/2024 8:20 PM EST [facility] Mitogen-NIL >10.00 IU/mL 04/10/2024 8:20 PM EST [facility] TB1-NIL <0.00 IU/mL 04/10/2024 8:20 PM EST [facility] TB2-NIL <0.00 IU/mL 04/10/2024 8:20 PM EST [facility] Comment: The Nil tube value reflects the [...] T-lymphocytes. For additional information, please refer to https://education.questdiagnostics.com/faq/OKM630 (This link is being provided for informational/ educational purposes only.) Blood Structure of peripheral vein / Unknown Venipuncture / Unknown 04/07/2024 11:40 AM EST 04/07/2024 11:52 AM EST Narrative [facility] - 04/10/2024 8:20 PM EST [facility] Received Date: Saurabh Heck MD LAB BLOOD ORDERABLES Final Result [facility] [address] [facility] [address], [place] [address], [facility] [address] [facility] [address], [place] [address], * (ABNORMAL) CBC Auto Differential (04/07/2024 11:40 [...] - 15.0 % 04/07/2024 12:05 PM EST [facility] Platelets 384 140 - 400 10*3/uL 04/07/2024 12:05 PM EST [facility] MPV 9.9 7.5 - 12.5 fL 04/07/2024 12:05 PM EST [facility] Neutrophil % 70.4 % 04/07/2024 12:05 PM EST [facility] Immature Grans % 0.7 0.0 - 0.9 % 04/07/2024 12:05 PM EST [facility] Lymphocyte % 16.9 % 04/07/2024 12:05 PM EST [facility] Monocyte % 5.9 % 04/07/2024 12:05 PM EST [facility] Eosinophil % 5.0 % 04/07/2024 12:05 PM EST [facility] Basophil % [...] - 0.20 10*3/uL 04/07/2024 12:05 PM EST [facility] nRBC % 0.0 /100 WBCs 04/07/2024 12:05 PM EST [facility] nRBC # <0.01 <0.01 10*3/uL 04/07/2024 12:05 PM EST [facility] Blood Structure of peripheral vein / Unknown Venipuncture / Unknown 04/07/2024 11:40 AM EST 04/07/2024 11:56 AM EST us Saurabh Heck MD LAB BLOOD ORDERABLES Final Result [facility] [address] [place] [address], * (ABNORMAL) Ranulfo-Hawkins Virus VCA Antibody Panel (04/07/2024 11:40 AM EST) EBV Viral Capsid Ag Ab (IGM) <36.00 U/mL 04/07/2024 10:47 PM EST [facility] Comment: ?U/mL ?Interpretation ?---- ?<36.00 ?Negative ?36.00-43.99 ? Equivocal ?>43.99 ?Positive EBV Viral Capsid Ag Ab (IGG) 211.00(H) U/mL 04/07/2024 10:47 PM EST [facility] Comment: ? U/mL ? Interpretation ? ---- ? <18.00 ? Negative ? 18.00-21.99 ?Equivocal ? >21.99 ? Positive EBV Nuclear Ag Ab 396.00(H) U/mL 025 10:47 PM EST [facility] Comment: ? U/mL ? Interpretation ? ---- ? <18.00 ? Negative ? 18.00-21.99 ?Equivocal ? >21.99 ? 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 In infants, a similar pattern may occur as a result of passive maternal transfer of antibody. Blood Structure of peripheral vein / Unknown Venipuncture / Unknown 04/07/2024 11:40 AM EST 04/07/2024 11:55 AM EST Narrative [facility] - 04/07/2024 10:47 PM EST [facility] Received Date: us Saurabh Heck MD LAB BLOOD ORDERABLES Final Result [facility] [address] [facility] [address], [place] [address], [place] [phone] [facility] [address] [facility] [address], [place] [address], * Hepatitis C Antibody w/Reflex to PCR (04/07/2024 11:40 AM EST) Hepatitis C Antibody NON-REACT EMILIANO NON-REACT EMILIANO 04/07/2024 7:09 PM EST [facility] Comment: HCV antibody was non-reactive. There is no laboratory evidence of HCV infection. In most cases, no further action is required. However, if recent HCV exposure is suspected, a test for HCV RNA (test code 86552) is suggested. For additional information please refer to http://Karmasphere.Cubiez/faq/NTH37v1 (This link is being provided for informational/ educational purposes only.) Blood Structure of peripheral vein / Unknown Venipuncture / Unknown 04/07/2024 11:40 AM EST 04/07/2024 11:56 AM EST Narrative [facility] - 04/07/2024 7:09 PM EST [facility] Received Date:[id number] us Saurabh Heck MD LAB BLOOD ORDERABLES Final Result Performing Organization Address City/[facility]/ZIP Co de Phone Number CAROLYNN [address], [place] [address], [place] [phone] [facility] [address], [place] [address], [place] [phone] * (ABNORMAL) Hepatitis A Antibody, Total (04/07/2024 11:40 AM EST) Hepatitis A Ab, Total REACTIVE( A) NON-REACT EMILIANO 04/07/2024 7:18 PM EST [facility] Comment: For additional information, please refer to http://Karmasphere.Cubiez/faq/DLC869 (This link is being provided for informational/ educational purposes only.) Blood Structure of peripheral vein / Unknown Venipuncture / Unknown 04/07/2024 11:40 AM EST 04/07/2024 11:55 AM EST Narrative [facility] - 04/07/2024 7:18 PM EST [facility] Received Date:[id number] us Saurabh Heck MD LAB BLOOD ORDERABLES Final Result Performing Organization Address City/[facility]/ZIP Co de Phone Number CAROLYNN [address], [place] [address], [place] [phone] [facility] [address], [place] [address], [place] [phone] * Hepatitis B Core Antibody, Total (04/07/2024 11:40 AM EST) Hepatitis B Core Ab Total NON-REACT EMILIANO NON-REACT EMILIANO 04/08/2024 2:28 AM EST [facility] Comment: For additional information, please refer to http://education.Cubiez/faq/DPZ504 (This link is being provided for informational/ educational purposes only.) Blood Structure of peripheral vein / Unknown Venipuncture / Unknown 04/07/2024 11:40 AM EST 04/07/2024 11:56 AM EST Narrative [facility] - 04/08/2024 2:28 AM EST [facility] Received Date: us Saurabh Heck MD LAB BLOOD ORDERABLES Final Result [facility] [address] [facility] [address], [place] [address], [place] [phone] [facility] [address], [place] [address], [place] [phone] * ABO/Rh Blood Type (04/07/2024 11:40 AM [...] Final Result [facility] [address] [place] [address], [place] [phone] * (ABNORMAL) Hepatitis B Surface Antibody (04/07/2024 11:40 AM EST) Hepatitis B Surface Ab Immunity, Qn <5(L) > OR = 10 mIU/mL 04/07/2024 7:17 PM EST [facility] Comment: PATIENT DOES NOT HAVE IMMUNITY TO HEPATITIS B VIRUS. For additional information, please refer to http://Karmasphere.Cubiez/faq/HOE421 (This link is being provided for informational/ educational purposes only). Blood Structure of peripheral vein / Unknown Venipuncture / Unknown 04/07/2024 11:40 AM EST 04/07/2024 11:55 AM EST Narrative [facility] - 04/07/2024 7:17 PM EST [facility] Received Date: us Saurabh Heck MD LAB BLOOD ORDERABLES Final Result [facility] [address] [facility] [address], [place] [address], [facility] [address] [facility] [address], [place] [address], [place] [phone] * Hepatitis B Surface Antigen w/Confirmation (04/07/2024 11:40 AM EST) Pathologist [facility] Hepatitis B Surface Antigen NON-REACT EMILIANO NON-REACT EMILIANO 04/07/2024 7:18 PM EST [facility] Comment: For additional information, please refer to http://Karmasphere.Cubiez/faq/FHZ369 (This link is being provided for informational/ educational purposes only.) Blood Structure of peripheral vein / Unknown Venipuncture / Unknown 04/07/2024 11:40 AM EST 04/07/2024 11:56 AM EST Narrative [facility] - 04/07/2024 7:18 PM EST [facility] Received Date: us Saurabh Heck MD LAB BLOOD ORDERABLES Final Result [facility] BASHIR [address] [facility] [address], [address] [place] [address], [facility] [address] [facility] [address], [address] [place] [address], * (ABNORMAL) Cytomegalovirus Antibody, IgG (04/07/2024 11:40 AM EST) Pathologist [facility] Cytomegalovirus Antibody (IgG) 8.50(H) U/mL 04/07/2024 10:50 PM EST [facility] Comment: ? U/mL ? Interpretation ? ----- [...] - 04/07/2024 10:50 PM EST [facility] Received Date:[id number] Saurabh Heck MD LAB BLOOD ORDERABLES Final Result [facility] BASHIR [address] [facility] [address], [address] [place] [address], [place] [phone] [facility] [address], [place] [address], [place] [phone] * PTT (04/07/2024 11:40 AM EST) aPTT 31.9 23.0 - 32.0 Seconds 04/07/2024 12:22 PM EST [facility] Comment: Current PTT reagent is not sensitive to detect all Lupus Anticoagulant (LA) Inhibitor Cases. ?? If a LA is suspected, please order a Lupus Anticoagulation w/ Reflex Test which is performed at [facility] in [place], [place]. Blood Structure of peripheral vein / Unknown Venipuncture / Unknown 04/07/2024 11:40 AM EST 04/07/2024 11:56 AM EST Saurabh Heck MD LAB BLOOD ORDERABLES Final Result Performing Organization Address City/[facility]/ZIP Co de Phone Number [facility] [address] [place] [address], * Protime-INR (04/07/2024 11:40 AM EST) PT 10.6 9.6 - 12.4 Seconds 04/07/2024 12:22 PM EST [facility] INR 1.0 0.9 - 1.1 04/07/2024 12:22 PM EST [facility] Comment:The optimal therapeu tic INR range for patients treated with Vitamin K antagonists (VKAS, e.g., Warfarin) is 2.0 to 3.5. Discuss the desired range with your doctor/care team. Blood Structure of peripheral vein / Unknown Venipuncture / Unknown 04/07/2024 11:40 AM EST 04/07/2024 11:56 AM EST us Saurabh Heck MD LAB BLOOD ORDERABLES Final Result [facility] [address] [place] [address], * Varicella Zoster Antibody, IgG (04/07/2024 11:40 AM EST) Varicella Zoster Virus Antibody 31.20 S/CO 04/08/2024 5:16 PM EST [facility] Comment: ?Signal to Cut-off ? S/CO ?Interpretation [...] EST 04/07/2024 11:56 AM EST Narrative [facility] - 04/08/2024 5:16 PM EST [facility] Received Date: Saurabh Heck MD LAB BLOOD ORDERABLES Final Result [facility] [address] [facility] [address], [place] [address], [facility] [address], [place] [address], * (ABNORMAL) BUN (04/07/2024 11:40 AM EST) BUN 46(H) 7 - 23 mg/dL 04/07/2024 12:25 PM EST [facility] Blood Structure of peripheral vein / Unknown Venipuncture / Unknown 04/07/2024 11:40 AM EST 04/07/2024 11:56 AM EST us Saurabh Heck MD LAB BLOOD ORDERABLES Final Result Performing Organization Address [facility]/ZIP Co de Phone Number [facility] [address] [place] [address], [place] * (ABNORMAL) ALT (04/07/2024 11:40 AM EST) ALT 7(L) 10 - 40 U/L 04/07/2024 12:25 PM EST [facility] Blood Structure of peripheral vein / Unknown Venipuncture / Unknown 04/07/2024 11:40 AM EST 04/07/2024 11:56 AM EST us Saurabh Heck MD LAB BLOOD ORDERABLES Final Result Performing Organization Address City/[facility]/ZIP Co de Phone Number [facility] [address] [place] [address], [place] * AST (04/07/2024 11:40 AM EST) AST 16 10 - 40 U/L 04/07/2024 12:25 PM EST [facility] Blood Structure of peripheral vein / Unknown Venipuncture / Unknown 04/07/2024 11:40 AM EST 04/07/2024 11:56 AM EST us Saurabh Heck MD LAB BLOOD ORDERABLES Final Result Performing Organization Address [facility]/ZIP Co de Phone Number [facility] [address] [place] [address], [place] * PSA (04/07/2024 11:40 AM EST) PSA 0.20 <=4.00 ng/mL 04/07/2024 12:37 PM EST [facility] Comment: The total PSA [...] BLOOD ORDERABLES Final Result Performing Organization Address [facility] Co de Phone Number [facility] [address] [place] [address], [place] * Phosphorus (04/07/2024 11:40 AM EST) Phosphorus 4.4 2.5 - 4.5 mg/dL 04/07/2024 12:25 PM EST [facility] Blood Structure of peripheral vein / Unknown Venipuncture / Unknown 04/07/2024 11:40 AM EST 04/07/2024 11:56 AM EST Saurabh Heck MD LAB BLOOD ORDERABLES Final Result Performing Organization Address [facility] Co de Phone Number [facility] [address] [place] [address], [place] * (ABNORMAL) Creatinine (04/07/2024 11:40 AM EST) Creatinine 4.84(H) 0.60 - 1.30 mg/dL 04/07/2024 12:25 PM EST [facility] eGFR 13(L) >=60 mL/min/1 .73m2 04/07/2024 12:25 PM EST [facility] Comment:The estimated glomer ular [...] BLOOD ORDERABLES Final Result Performing Organization Address City/[facility]/ZIP Co de Phone Number [facility] [address] [place] [address], [place] * Calcium (04/07/2024 11:40 AM EST) Calcium 8.8 8.6 - 10.5 mg/dL 04/07/2024 12:25 PM EST [facility] Blood Structure of peripheral vein / Unknown Venipuncture / Unknown 04/07/2024 11:40 AM EST 04/07/2024 11:56 AM EST us Saurabh Heck MD LAB BLOOD ORDERABLES Final Result [facility] [address] [place] [address], [place] * Bilirubin, Direct (04/07/2024 11:40 AM EST) Bilirubin, Direct <0.1 <=0.4 mg/dL 04/07/2024 12:30 PM EST [facility] Blood Structure of peripheral vein / Unknown Venipuncture / Unknown 04/07/2024 11:40 AM EST 04/07/2024 11:56 AM EST us Saurabh Heck MD LAB BLOOD ORDERABLES Final Result [facility] [address] [place] [address], [place] * Bilirubin, Total (04/07/2024 11:40 AM EST) Bilirubin, Total 0.2 0.2 - 1.2 mg/dL 04/07/2024 12:30 PM EST [facility] Blood Structure of peripheral vein / Unknown Venipuncture / Unknown 04/07/2024 11:40 AM EST 04/07/2024 11:56 AM EST us Saurabh Heck MD LAB BLOOD ORDERABLES Final Result Performing Organization Address City/[facility]/ZIP Co de Phone Number [facility] [address] [place] [address], [place] * Albumin (04/07/2024 11:40 AM EST) Albumin 3.7 3.5 - 5.2 g/dL 04/07/2024 12:25 PM EST [facility] Blood Structure of peripheral vein / Unknown Venipuncture / Unknown 04/07/2024 11:40 AM EST 04/07/2024 11:56 AM EST us Saurabh Heck MD LAB BLOOD ORDERABLES Final Result [email or web address] [address] [place] [address], [place] from Last [address] [place] [address] [address] [place] [address] Care Teams Director Strategic Planning Relationship Specialty Start Date End Date Patient, Has No Pcp Or Ref DO NOT EDIT THIS RECORD VIA PROVIDER ON THE FLY PCP - General Director Of Supply Chain 04/07/24
--- OUTSIDE RECORDS SUMMARY | 2024-06-01 16:21 | XMS_ITS | Clinical Summary ---
Author Organization [facility] Address [address] [place] [address] Care Team Providers Care Zinc Plate Grainer Name Role Phone Patient, Has No Pcp [...] Type Department Care Team Description 05/24/2024 Abstract [facility] Transplant Department [address] [place] [address] [phone] Anabell Arana RN 05/17/2024 Telephone [facility] Trans[facility] Department [address] [place] [address] 29934 Anabell Arana RN 05/03/2024 Telephone [facility] [address] [place] [address] 92924 Anabell Arana RN 04/27/2024 8:41 AM EDT - 04/27/2024 11:59 PM EDT Hospital Encounter [facility] Ultrasound [address] [place] [address] 724[address] Saurabh Heck MD Type 2 diabetes mellitus with other circulatory complication, with long-term current use of insulin Discharge Disposition: Home or Self Care (01) 04/20/2024 Orders Only [facility] [address] [place] [address] 69792 Business Technology Analyst: Saurabh Brink MD Type 2 diabetes mellitus with other circulatory complication, with long-term current use of insulin (Primary Dx) 04/19/2024 Orders Only [facility] [address] [place] [address] 90093 Business Technology Analyst: Saurabh Brink MD 04/15/2024 Abstract [facility] Transplant Department [address] [place] [address] 65165 Valerio Barrow 04/11/2024 Abstract [facility] Transplant Department [address] [place] [address] Anabell Arana, RN 04/07/2024 11:20 AM EST Lab [facility] Draw Site [address] [place] [address] Pre-transplant evaluation for kidney transplant; Stage 4 chronic kidney disease; Weak urinary stream 04/07/2024 10:15 AM EST Office Visit [facility] Renal Transplant [address] [place] [address] Saurabh Heck MD Pre-transplant evaluation for end stage renal disease (Primary Dx); 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, with long-term current use of insulin; Chronic obstructive pulmonary disease, unspecified COPD type; History of CVA (cerebrovascular accident); Hypertension secondary to other renal disorders; At risk for obstructive sleep apnea; Mixed hyperlipidemia 04/07/2024 9:30 AM EST Social Work [facility] Renal Transplant [address] [place] [address] Valerio Barrow 04/07/2024 8:15 AM EST Evaluation [facility] Transplant [address] [place] [address] Anabell Arana, RN Pre-transplant evaluation for kidney transplant (Primary Dx) 04/07/2024 8:00 AM EST Office Visit [facility] Renal Transplant [address] [place] [address] Nannette Pereira RN Pre-transplant evaluation for kidney transplant (Primary Dx) 04/06/2024 Orders Only [facility] Transplant Department [address] [place] [address] Anabell Arana RN 04/06/2024 Orders Only [facility] Trans[facility] Department [address] [place] [address] 29716 Anabell Arana, RN Pre-transplant evaluation for kidney transplant (Primary Dx); Stage 4 chronic kidney disease; Weak urinary stream 04/05/2024 Telephone [facility] Transplant Department [address] [place] [address] Anabell Arana RN 03/09/2024 Telephone [facility] Transplant Department [address] [place] [address] Sharmila Mathis RN from Last 3 Months [...] Info) Description 06/15/2024 2:30 PM EDT Appointment [facility] ACC Building Cardiac Ultrasound [address] [place] [address] Saurabh Heck MD [address] [place] [address] 06/15/2024 3:45 PM EDT Appointment [facility] CT Scan [address] [place] [address] Saurabh Heck MD [address] [place] [address] 04/06/2025 11:20 AM EST Follow-Up [facility] Renal Transplant [address] [place] [address] Saurabh Heck MD [address] [place] [address] Health Maintenance Due Date Last Done Comments [...] Screening Completed 04/07/2024 Procedures * Due to [place] state law, this organization might not be [...] chronic kidney disease QUANTIFERON-TB GOLD PLUS, 1 [id number] Routine 04/07/2024 11:40 AM EST Pre-transplant evaluation for kidney transplant Stage 4 chronic kidney disease RPR (DIAGNOSIS) W/REFLEX TO TITER & TPPA [id number] Routine 04/07/2024 11:40 AM EST Pre-transplant evaluation for kidney transplant Stage 4 chronic kidney disease VARICELLA ZOSTER ANTIBODY, IGG Routine 04/07/2024 11:40 AM EST Pre-transplant evaluation for kidney transplant Stage 4 chronic kidney disease HLA TRANSPLANT WORK-UP (ALLELE LEVEL A/B/C/DRB1/CHQ614/DQA1/ DQB1/DPA1/DPB1) Routine 04/07/2024 11:40 AM EST Pre-transplant [...] Last 3 Months Results * Due to [place] state law, this organization might not be [...] Re sult * HLA Transplan Work-Up(Allele Level A/B/C/DRB1/JIH368/DQA1/DQB1/DPA1/DPB1) (04/07/2024 11:40 AM EST) [facility] Histocompatibility Laboratory Information See Below 04/13/2024 4:33 PM EST [facility] Comment: OLGA: ??[id number] ?Director: ??Francy Fisher MD. [facility] [...] [facility] [address] [facility] Rm: [id number] [place] [address], * (ABNORMAL) MMR Panel, IgG (04/07/2024 11:40 AM EST) Measles Antibody (IgG), Immune Status >300.00 AU/mL 04/07/2024 10:52 PM EST [facility] Comment: AU/mL ?Interpretation ----- ? <13.50 ? Not consistent with immunity 13.50-16.49 ?Equivocal >16.49 ? Consistent with immunity The presence of measles IgG suggests immunization or past or current infection with measles virus. For additional information, please refer to http://10-20 Media.HuTerra/faq/LRW006 (This link is being provided for informational/ educational purposes only.) Mumps Antibody (IgG), Immune Status 177.00 AU/mL 04/07/2024 10:52 PM EST [facility] Comment: AU/mL ? Interpretation ------- ? <9.00 ? Not consistent with immunity 9.00-10.99 ?Equivocal >10.99 ?Consistent with immunity The presence of mumps IgG antibody suggests immunization or past or current infection with mumps virus. Rubella Antibody (IgG), Immune Status <0.90(L) Index 04/07/2024 10:52 PM EST [facility] Comment: ?Index ?Interpretation ?----- ?<0.90 ?Not consistent with immunity ?0.90-0.99 ?Equivocal ?> or = 1.00 ?Consistent with immunity The presence of rubella IgG antibody suggests immunization or past or current infection with rubella virus. Blood Structure of peripheral vein / Unknown Venipuncture / Unknown 04/07/2024 11:40 AM EST 04/07/2024 11:56 AM EST Narrative [facility] [place] - 04/07/2024 10:52 PM EST [facility] Received Date: us Saurabh Heck MD LAB BLOOD ORDERABLES Final Result [facility] [place] [address] [facility] 3rd Floor, [place] [address], [facility] [address] [facility] 3rd Floor, [place] [address], * (ABNORMAL) Herpes Simplex Virus 1&2, IgG (04/07/2024 11:40 AM EST) Pathologist [facility] HSV 1 IgG Type Specific Ab 1.19(H) index 04/11/2024 1:29 PM EST [facility] HSV 2 IgG Type Specific Ab 10.00(H) index 04/11/2024 1:29 PM EST [facility] Comment: ?Index ?Interpretation ?----- ?<0.90 ?Negative ?0.90-1.09 [...] screening. For additional information, please refer to http://education.HuTerra/faq/UKG551 (This link is being provided for informational/ educational purposes only.) ?? Blood Structure of peripheral vein / Unknown Venipuncture / Unknown 04/07/2024 11:40 AM EST 04/07/2024 11:56 AM EST Narrative [facility] [place] - 04/11/2024 1:29 PM EST [facility] Received Date:[id number] us Saurabh Heck MD LAB BLOOD ORDERABLES Final Result Performing Organization Address [facility] de Phone Number [facility] [place] [address], [place] [address], Equ[facility]6 [address], [place] [address], [place] [phone] * RPR (Diagnosis) w/Reflex to Titer & TPPA Confirm (04/07/2024 11:40 AM EST) RPR W/Refl Titer NON-REACT EMILIANO NON-REACT EMILIANO 04/08/2024 9:32 AM EST [facility] Blood Structure of peripheral vein / Unknown Venipuncture / Unknown 04/07/2024 11:40 AM EST 04/07/2024 11:56 AM EST Narrative [facility] [place] - 04/08/2024 9:32 AM EST [facility] Received Date:[id number] us Saurabh Heck MD LAB BLOOD ORDERABLES Final Result Performing Organization Address [facility] Co de Phone Number [facility] [address], [place] [address], [facility] [employer] [facility] [address] [facility] 3rd Floor, [address] [facility] [place] [address], * QuantiFERON-TB Gold Plus, 1 Tube (04/07/2024 11:40 AM EST) [facility] QuantiFERON-TB Gold Plus NEGATIVE NEGATIVE 04/10/2024 8:20 PM EST [facility] Comment: Negative test result. M. tuberculosis complex infection unlikely. NIL 0.10 IU/mL 04/10/2024 8:20 PM EST [facility] Mitogen-NIL >10.00 IU/mL 04/10/2024 8:20 PM EST [facility] TB1-NIL <0.00 IU/mL 04/10/2024 8:20 PM EST [facility] TB2-NIL <0.00 IU/mL 04/10/2024 8:20 PM EST [facility] Comment: The Nil tube value reflects the [...] T-lymphocytes. For additional information, please refer to https://education.NovelMed Therapeutics.T-RAM [employer]iconductor/faq/SNR287 (This link is being provided for informational/ educational purposes only.) Blood Structure of peripheral vein / Unknown Venipuncture / Unknown 04/07/2024 11:40 AM EST 04/07/2024 11:52 AM EST Narrative [facility] [place] - 04/10/2024 8:20 PM EST [facility] Received Date: us Saurabh Heck MD LAB BLOOD ORDERABLES Final Result [facility] [address], [place] [address], [place] [phone] [facility] [address], [place] [address], [place] [phone] * (ABNORMAL) CBC Auto Differential (04/07/2024 11:40 [...] % 70.4 % 04/07/2024 12:05 PM EST [facility] Immature Grans % 0.7 0.0 - 0.9 % 04/07/2024 12:05 PM EST [facility] Lymphocyte % 16.9 % 04/07/2024 12:05 PM EST [facility] Monocyte % 5.9 % 04/07/2024 12:05 PM EST [facility] Eosinophil % 5.0 % 04/07/2024 12:05 PM EST [facility] Basophil % 1.1 % 04/07/2024 12:05 PM EST Short [facility] Neutrophil # 9.08(H) 1.50 - 7.80 10*3/uL 04/07/2024 12:05 PM EST [facility] Immature Grans # 0.09(H) <=0.03 10*3/uL 04/07/2024 12:05 PM EST [facility] Lymphocyte # 2.20 0.85 - 3.90 10*3/uL 04/07/2024 12:05 PM EST [facility] Monocyte # 0.80 0.20 - 0.95 10*3/uL 04/07/2024 12:05 PM EST Short [facility] Eosinophil # 0.60(H) 0.02 - 0.50 10*3/uL 04/07/2024 12:05 PM EST [facility] Basophil # 0.10 0.00 - 0.20 10*3/uL 04/07/2024 12:05 PM EST [facility] nRBC % 0.0 /100 WBCs 04/07/2024 12:05 PM EST [facility] nRBC # <0.01 <0.01 10*3/uL 04/07/2024 12:05 PM EST [facility] Blood Structure of peripheral vein / Unknown Venipuncture / Unknown 04/07/2024 11:40 AM EST 04/07/2024 11:56 AM EST us Saurabh Heck MD LAB BLOOD ORDERABLES Final Result [facility] [address] [place] [address], * (ABNORMAL) Ranulfo-Hawkins Virus VCA Antibody Panel (04/07/2024 11:40 AM EST) EBV Viral Capsid Ag Ab (IGM) <36.00 U/mL 04/07/2024 10:47 PM EST [facility] Comment: ?U/mL ?Interpretation ?---- ?<36.00 ?Negative ?36.00-43.99 ? Equivocal ?>43.99 ?Positive EBV Viral Capsid Ag Ab (IGG) 211.00(H) U/mL 04/07/2024 10:47 PM EST [facility] Comment: ? U/mL ? Interpretation ? ---- ? <18.00 ? Negative ? 18.00-21.99 ?Equivocal ? >21.99 ? Positive EBV Nuclear Ag Ab 396.00(H) U/mL 025 10:47 PM EST [facility] Comment: ? U/mL ? Interpretation ? ---- ? <18.00 ? Negative ? 18.00-21.99 ?Equivocal ? >21.99 ? 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 In infants, a similar pattern may occur as a result of passive maternal transfer of antibody. Blood Structure of peripheral vein / Unknown Venipuncture / Unknown 04/07/2024 11:40 AM EST 04/07/2024 11:55 AM EST [facility] - 04/07/2024 10:47 PM EST [facility] Received Date: Saurabh Heck MD LAB BLOOD ORDERABLES Final Result [facility] [place] [address] [facility] 3rd Floor, [place] [address], [facility] [address] [facility] 3[address], [place] [address], * Hepatitis C Antibody w/Reflex to PCR (04/07/2024 11:40 AM EST) Hepatitis C Antibody NON-REACT EMILIANO NON-REACT EMILIANO 04/07/2024 7:09 PM EST [facility] Comment: HCV antibody was non-reactive. There is no laboratory evidence of HCV infection. In most cases, no further action is required. However, if recent HCV exposure is suspected, a test for HCV RNA (test code 58022) is suggested. For additional information please refer to http://education.Fair value/faq/SKY37d1 (This link is being provided for informational/ educational purposes only.) Blood Structure of peripheral vein / Unknown Venipuncture / Unknown 04/07/2024 11:40 AM EST 04/07/2024 11:56 AM EST Narrative [facility] - 04/07/2024 7:09 PM EST [facility] Received Date:[id number] us Saurabh Heck MD LAB BLOOD ORDERABLES Final Result [facility] [address], [place] [address], [place] [phone] [facility] [address], [place] [address], [place] [phone] * (ABNORMAL) Hepatitis A Antibody, Total (04/07/2024 11:40 AM EST) Hepatitis A Ab, Total REACTIVE( A) NON-REACT EMILIANO 04/07/2024 7:18 PM EST [facility] Comment: For additional information, please refer to http://10-20 Media.Fair value/faq/YMW494 (This link is being provided for informational/ educational purposes only.) Blood Structure of peripheral vein / Unknown Venipuncture / Unknown 04/07/2024 11:40 AM EST 04/07/2024 11:55 AM EST Narrative [facility] [place] - 04/07/2024 7:18 PM EST [facility] Received Date:[id number] us Saurabh Heck MD LAB BLOOD ORDERABLES Final Result Performing Organization Address City/[facility]/ZIP Co de Phone Number [facility] [address], [place] [address], [place] [phone] [facility] [address], [place] [address], [place] [phone] * Hepatitis B Core Antibody, Total (04/07/2024 11:40 AM EST) Hepatitis B Core Ab Total NON-REACT EMILIANO NON-REACT EMILIANO 04/08/2024 2:28 AM EST [facility] Comment: For additional information, please refer to http://10-20 Media.Fair value/faq/UJC055 (This link is being provided for informational/ educational purposes only.) Blood Structure of peripheral vein / Unknown Venipuncture / Unknown 04/07/2024 11:40 AM EST 04/07/2024 11:56 AM EST Narrative [facility] [place] - 04/08/2024 2:28 AM EST [facility] Received Date: us Saurabh Heck MD LAB BLOOD ORDERABLES Final Result [facility] [address], [place] [address], [place] [phone] [facility], [place] [address], [place] [phone] * ABO/Rh Blood Type (04/07/2024 11:40 AM EST) ABO Blood Type O 04/07/2024 1:05 PM EST [facility] RH Type Positive 04/07/2024 1:05 PM EST [facility] Blood Structure of peripheral vein / Unknown Venipuncture / Unknown 04/07/2024 11:40 AM EST 04/07/2024 12:17 PM EST us Saurabh Heck MD LAB BLOOD BANK TEST ORDERAB LES Final Result [facility] [address] [place] [address], [place] [phone] * (ABNORMAL) Hepatitis B Surface Antibody (04/07/2024 11:40 AM EST) Hepatitis B Surface Ab Immunity, Qn <5(L) > OR = 10 mIU/mL 04/07/2024 7:17 PM EST [facility] Comment: PATIENT DOES NOT HAVE IMMUNITY TO HEPATITIS B VIRUS. For additional information, please refer to http://10-20 Media.Fair value/faq/YHU916 (This link is being provided for informational/ educational purposes only). Blood Structure of peripheral vein / Unknown Venipuncture / Unknown 04/07/2024 11:40 AM EST 04/07/2024 11:55 AM EST [facility]ative [facility] [place] - 04/07/2024 7:17 PM EST [facility] Received Date:[id number] us Saurabh Heck MD LAB BLOOD ORDERABLES Final Result Performing Organization Address City/[facility]/ZIP Co de Phone Number [facility] [place] [address], [place] [address], [place] [phone] [facility], [place] [address], [place] [phone] * Hepatitis B Surface Antigen w/Confirmation (04/07/2024 11:40 AM EST) Hepatitis B Surface Antigen NON-REACT EMILIANO NON-REACT EMILIANO 04/07/2024 7:18 PM EST [facility] Comment: For additional information, please refer to http://education.Fair value/faq/UIC287 (This link is being provided for informational/ educational purposes only.) Blood Structure of peripheral vein / Unknown Venipuncture / Unknown 04/07/2024 11:40 AM EST 04/07/2024 11:56 AM EST [facility]ative [facility] [place] - 04/07/2024 7:18 PM EST [facility] Received Date:[id number] us Saurabh Heck MD LAB BLOOD ORDERABLES Final Result Performing Organization Address City/[facility]/ZIP Co de Phone Number [facility] [place] [address] [facility] [address] [facility], [place] [address], [place] [phone] [facility] [address], [place] [address], [place] [phone] * (ABNORMAL) Cytomegalovirus Antibody, IgG (04/07/2024 11:40 AM EST) Cytomegalovirus Antibody (IgG) 8.50(H) U/mL 04/07/2024 10:50 PM EST [facility] Comment: ? U/mL ? Interpretation ? ----- ? <0.60 ? Negative ? 0.60-0.69 ? Equivocal ? > or = 0.70 ?? Positive A positive result indicates that the patient has antibody to CMV. It does not differentiate between an active or past infection. Blood Structure of peripheral vein / Unknown Venipuncture / Unknown 04/07/2024 11:40 AM EST 04/07/2024 11:56 AM EST Narrative [facility] - 04/07/2024 10:50 PM EST [facility] Received Date: us Saurabh Heck MD LAB BLOOD ORDERABLES Final Result [facility] [address], [place] [address], [place] [phone] [facility] [address], [place] [address], [place] [phone] * PTT (04/07/2024 11:40 AM EST) [facility] aPTT 31.9 23.0 - 32.0 Seconds 04/07/2024 12:22 PM EST [facility] Comment: Current PTT reagent is not sensitive to detect all Lupus Anticoagulant (LA) Inhibitor Cases. ?? If a LA is suspected, please order a Lupus Anticoagulation w/ Reflex Test which is performed at [facility] in [place], [place]. Blood Structure of peripheral vein / Unknown Venipuncture / Unknown 04/07/2024 11:40 AM EST 04/07/2024 11:56 AM EST Saurabh Heck MD LAB BLOOD ORDERABLES Final Result Performing Organization Address [facility] de Phone Number [facility] [address] [place] [address], * Protime-INR (04/07/2024 11:40 AM EST) PT 10.6 9.6 - 12.4 Seconds 04/07/2024 12:22 PM EST [facility] INR 1.0 0.9 - 1.1 04/07/2024 12:22 PM EST [facility] Comment:The optimal therapeu tic INR range for patients treated with Vitamin K antagonists (VKAS, e.g., Warfarin) is 2.0 to 3.5. Discuss the desired range with your doctor/care team. Blood Structure of peripheral vein / Unknown Venipuncture / Unknown 04/07/2024 11:40 AM EST 04/07/2024 11:56 AM EST Saurabh Heck MD LAB BLOOD ORDERABLES Final Result Performing Organization Address [facility] de Phone Number [facility] [address] [place] [address], * Varicella Zoster Antibody, IgG (04/07/2024 11:40 AM EST) Varicella Zoster Virus Antibody 31.20 S/CO 04/08/2024 5:16 PM EST [place] Comment: ?Signal to Cut-off ? S/CO ?Interpretation [...] 04/07/2024 11:56 AM EST Narrative [facility] - 04/08/2024 5:16 PM EST [facility] Received Date: us Saurabh Heck MD LAB BLOOD ORDERABLES Final Result Performing Organization Address City/State/[facility] Co de Phone Number [facility] [place] [address] [facility] 3rd [address], [place] [address], [place] [phone] [facility] [address] [facility] 3[address], [place] [address], * (ABNORMAL) BUN (04/07/2024 11:40 AM EST) BUN 46(H) 7 - 23 mg/dL 04/07/2024 12:25 PM EST [facility] Blood Structure of peripheral vein / Unknown Venipuncture / Unknown 04/07/2024 11:40 AM EST 04/07/2024 11:56 AM EST Saurabh Heck MD LAB BLOOD ORDERABLES Final Result Performing Organization Address [facility] Co de Phone Number [facility] [address] [place] [address], * (ABNORMAL) ALT (04/07/2024 11:40 AM EST) ALT 7(L) 10 - 40 U/L 04/07/2024 12:25 PM EST [facility] Blood Structure of peripheral vein / Unknown Venipuncture / Unknown 04/07/2024 11:40 AM EST 04/07/2024 11:56 AM EST Saurabh Heck MD LAB BLOOD ORDERABLES Final Result Performing Organization Address [facility] Co de Phone Number [facility] [address] [place] [address], [place] * AST (04/07/2024 11:40 AM EST) Pathologist [facility] AST 16 10 - 40 U/L 04/07/2024 12:25 PM EST [facility] Blood Structure of peripheral vein / Unknown Venipuncture / Unknown 04/07/2024 11:40 AM EST 04/07/2024 11:56 AM EST Saurabh Heck MD LAB BLOOD ORDERABLES Final Result Performing Organization Address [facility] Co de Phone Number [facility] [address] [place] [address], [place] * PSA (04/07/2024 11:40 AM EST) PSA 0.20 <=4.00 ng/mL 04/07/2024 12:37 PM EST [facility] Comment: The total PSA value from this assay system is standardized against the WHO standard. ??The test result will be slightly lower (< 3 %) when compared to the equimolar-standardized total PSA(Nusrat Milton). ??Comparison of Serial PSA results should be [...] BLOOD ORDERABLES Final Result Performing Organization Address City/[facility]/ZIP Co de Phone Number [facility] [address] [place] [address], [place] * Phosphorus (04/07/2024 11:40 AM EST) Phosphorus 4.4 2.5 - 4.5 mg/dL 04/07/2024 12:25 PM EST [facility] Blood Structure of peripheral vein / Unknown Venipuncture / Unknown 04/07/2024 11:40 AM EST 04/07/2024 11:56 AM EST Saurabh Heck MD LAB BLOOD ORDERABLES Final Result Performing Organization Address [facility] Co de Phone Number [facility] CL[facility]OLOGY LABORATORY [address] [place] [address], [place] * (ABNORMAL) Creatinine (04/07/2024 11:40 AM EST) Creatinine 4.84(H) 0.60 - 1.30 mg/dL 04/07/2024 12:25 PM EST [facility] eGFR 13(L) >=60 mL/min/1 .73m2 04/07/2024 12:25 PM EST [facility] Comment:The estimated glomer ular [...] BLOOD ORDERABLES Final Result Performing Organization Address City/[facility]/ZIP Co de Phone Number [facility] [address] [place] [address], [place] * Calcium (04/07/2024 11:40 AM EST) Calcium 8.8 8.6 - 10.5 mg/dL 04/07/2024 12:25 PM EST [facility] Blood Structure of peripheral vein / Unknown Venipuncture / Unknown 04/07/2024 11:40 AM EST 04/07/2024 11:56 AM EST us Saurabh Heck MD LAB BLOOD ORDERABLES Final Result [facility] [address] [place] [address], [place] * Bilirubin, Direct (04/07/2024 11:40 AM EST) Bilirubin, Direct <0.1 <=0.4 mg/dL 04/07/2024 12:30 PM EST [facility] Blood Structure of peripheral vein / Unknown Venipuncture / Unknown 04/07/2024 11:40 AM EST 04/07/2024 11:56 AM EST Saurabh Heck MD LAB BLOOD ORDERABLES Final Result [facility] [address] [place] [address], * Bilirubin, Total (04/07/2024 11:40 AM EST) Bilirubin, Total 0.2 0.2 - 1.2 mg/dL 04/07/2024 12:30 PM EST [facility] Blood Structure of peripheral vein / Unknown Venipuncture / Unknown 04/07/2024 11:40 AM EST 04/07/2024 11:56 AM EST Saurabh Heck MD LAB BLOOD ORDERABLES Final Result Performing Organization Address [facility] Co de Phone Number [facility] [address] [place] [address], * Albumin (04/07/2024 11:40 AM EST) Albumin 3.7 3.5 - 5.2 g/dL 04/07/2024 12:25 PM EST [facility] Blood Structure of peripheral vein / Unknown Venipuncture / Unknown 04/07/2024 11:40 AM EST 04/07/2024 11:56 AM EST Saurabh Heck MD LAB BLOOD ORDERABLES Final Result [facility] [address] [place] [address], from Last 3 Months Insurance Care Teams Zinc Plate Grainer Relationship Specialty Start Date End Date Patient, Has No Pcp Or Ref DO NOT EDIT THIS RECORD VIA PROVIDER ON THE FLY PCP - General Principal System Software Engineer 04/07/24
--- OUTSIDE RECORDS SUMMARY | 2024-06-01 16:21 | XMS_ITS | Encounter Summary ---
Author Organization [facility] Address [address] [place] [address] Care Team Providers Care Digital Color Press Operator Name Role Phone Unavailable Primary Care Provider Unavailabl e Encounter Details Date Type Department Care Team (Late st Contact Info) Description 05/16/2024 Lab Requisition [facility] - Main Lab [address] [place] [address] Cole Del Valle MD [address] [place] [address] Anemia, unspecified Social History Tobacco Use Types [...] LAB HEMETOLOGY METHOD 05/16/2024 12:42 PM EDT [facility] ([facility]) [facility] Blood Venous blood specimen / Unknown 05/16/2024 9:30 AM EDT 05/16/2024 12:28 PM EDT us Cole Del Valle MD LAB BLOOD ORDERABL ES Final Result [facility] ([facility]) [facility] [address] [place] [address], documented in this encounter Visit Diagnoses Diagnosis Anemia, unspecified documented in this encounter
== END 2024-06-01 15:41 | disposition home or self-care (01) ==
LOC: HO.HMCC 13:41
PROVIDERS: PCP Internal Medicine; Visit Provider Internal Medicine
DX: I12.0 Hypertensive chronic kidney disease with stage 5 chronic kidney disease or end stage renal disease (principal); E11.40 Type 2 diabetes mellitus with diabetic neuropathy, unspecified; E11.628 Type 2 diabetes mellitus with other skin complications; N18.6 End stage renal disease; L08.9 Local infection of the skin and subcutaneous tissue, unspecified; Z99.2 Dependence on renal dialysis

== ENCOUNTER 2024-07-06 10:27 | Outpatient (AMB) | payer OTHER, SELFPAY ==
[2024-07-06 10:41] VITALS: BP 122/82; PULSE 99; O2SAT 97
--- NOTE | 2024-07-06 10:41 | MHC.OFFVIS ---
Vital Signs 07/06/24 10:41 Height 6 ft 2 in BMI Reason not done Patient refused/unable BP 122/82 Blood Pressure Location Lt brachial Position Sitting Pulse 99 Pulse Source Pulse Oximeter Pulse Oximetry (%) 97 Oxygen Delivery Method Room Air Intake Visit Reasons: Obstructive sleep apnea Intake Note: pt is here for follow up and states he is little tired, some coughing since thursday. 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 Allergies No Known Allergies Allergy (Verified 07/06/24 10:58) Medication List - Last Reconciled 07/06/24 by Edmundo Hammond MD amlodipine 10 mg PO DAILY aspirin 81 mg PO DAILY atorvastatin 40 mg PO BEDTIME [bed rail As directed] calcitriol 1 mcg PO DIRECTED carvedilol 12.5 mg PO BID Dexcom G6 Sensor (blood-glucose sensor) As directed change every 10 days LEE NS Dexcom G6 Transmitter (blood-glucose transmitter) As directed NS doxycycline hyclate 100 mg PO BID ergocalciferol (vitamin D2) (Vitamin D2) 1,250 mcg PO SA FreeStyle Lancets (lancets) USE TO TEST FINGER STICK BLOOD SUGAR 3 (THREE) TIMES A DAY NS furosemide 80 mg PO DAILY gabapentin 100 mg PO DAILY Grab bar one long bar 33-36 inches for inside the shower, one regular bar 18-24 inches for outside the shower [Hand rails As directed] hydralazine 10 mg PO TID insulin aspart U-100 8 units subcut TIDAC insulin glargine (Lantus Solostar U-100 Insulin) 20 units subcut BEDTIME insulin syringe-needle U-100 (Comfort EZ Insulin Syringe) USE WITH insulin two (2) times a day ipratropium-albuterol 0.5 mg-3 mg(2.5 mg base)/3 mL 3 mL inhalation Q6-8H PRN 30 days isosorbide mononitrate ER 60 mg PO DAILY nicotine 1 patch transdermal DAILY 28 days omega-3 acid ethyl esters (Lovaza) 2 caps PO BID [overbed table with wheels As directed] pen needle, diabetic (Comfort EZ Pen [place]) USE DIRECTED 3 (THREE) TIMES A DAY [shower bar As directed] [Shower seat As directed] sodium zirconium cyclosilicate (Lokelma) 10 grams PO DAILY Symbicort 160-4.5 mcg/actuation (budesonide-formoterol) 2 puffs PO Q12H NS tirzepatide (Mounjaro) 7.5 mg subcut MO [wheelchair As directed] [wheelchair As directed] [wheelchair ramp Pt is wheelchair bound, needs a ramp to exit the front door and 6 steps to get to the sidewalk] Do you need a note to return to daycare/school/sports/work: No HPI HPI Obstructive sleep apnea: Details: This 53 years old gentleman with chronic obstructive pulmonary disease and obstructive sleep apnea, comes for his routine follow-up after 4 months. He is still not using CPAP and was not able to get the lab based sleep study. He say is that on the date of his appointment the lab was not able to do the study due to some electricity problem. He did not get a new appointment yet. He does have frequent cough at night and wakes up very frequently., the symptoms related to his on treated obstructive sleep apnea. Breathing lopez he is doing fairly well with mild intermittent cough. He is mostly in the wheelchair and does not walk around so denies any shortness of breath on exertion. He has mild intermittent cough He is on Symbicort 2 puffs b.i.d. and also uses the DuoNeb updrafts 2 times a day. This gentleman is on home dialysis program and. 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 Essential hypertension Allergic rhinitis Mixed dyslipidemia Amputation, toe, traumatic Vitamin D deficiency Diabetes mellitus with neuropathy Diabetes mellitus with hyperglycemia, with long-term current use of insulin Osteoarthritis Fibromyalgia Spondylosis of cervical spine Surgical History History of foot surgery Family History Father HTN (hypertension) Diabetes Mental health disorder Mother HTN (hypertension) Brother Stroke Social History Household Members: Spouse Housing: House Do you presently have visiting nurse or other home services: No Alcohol intake: never Patient Tobacco Use Status: Former Tobacco user Cigarette Packs Per Day: 1 Cigarettes Per Day: 20.0 Years Smoked: 35 e-Cigarette/Vaping Use: Never Used Second Hand Smoke Exposure: No service: No Current occupational status: disabled Cognitive needs: No Hearing needs: No Vision needs: No Review of Systems Const All systems reviewed & are unremarkable except as noted in HPI and below Eyes Reports no additional complaints ENT Reports no additional complaints Card Denies chest pain at rest, Denies irregular heart rhythm and Denies leg edema Resp Reports as per HPI GI Reports no additional complaints Reports no additional complaints Musc Reports abnormal gait (He has weakness of both lower extremities and is non ambulatory, uses wheel), Reports back pain and Reports muscle weakness Skin/Breast Reports system reviewed and no additional complaints, except as documented Neuro Reports abnormal gait (He has weakness of both lower extremities and is non ambulatory, uses wheel) Psych Reports no additional complaints Endo Reports other (Being treated for diabetes mellitus) Aller/Immun Reports no additional complaints Physical Exam Vital Signs: Last Vital Signs Pulse 99 07/06/24 10:41 BP 122/82 07/06/24 10:41 Pulse Ox 97 07/06/24 10:41 Oxygen Delivery Method Room Air 07/06/24 10:41 The patient does appear to be moderately obese with a round face. He is sitting in the wheelchair but able to stand and walk, he appears to be comfortable. Const General: comfortable, no acute distress, alert and awake Orientation/consciousness: patient oriented x3 HEENT Head: Yes normal to inspection General nose exam: No nasal polyps present and No nasal discharge present Face and sinus: Yes sinuses nontender Mouth: oropharynx abnormals (Oropharynx is narrow and crowded, Mallampati class 4) Throat: Yes posterior oropharynx normal Eyes General: appearance normal, both eyes and all related structures Neck Neck: Yes normal visual inspection, Yes no lymphadenopathy, Yes trachea midline and Yes other (Neck circumference 18 in) Thyroid: Thyroid normal Chest Chest palpation & inspection: normal inspection of the chest, normal palpation of entire chest wall (Has dialysis port in the right chest wall) and no tenderness Resp Other: Percussion note is resonant, breath sounds are quite distant especially over the basilar areas. He does not have any he crepitations or wheezes at this time . Cardio Palpation: normal PMI Rate: regular rate Rhythm: regular rhythm Heart sounds: no gallops and no murmurs GI Palpation (GI): Soft to palpation, nontender, No hepatosplenomegaly present and no masses Auscultation: normal bowel sounds Back/Spine/Pelvis Thoracic/Lumbar Spine: thoraco-lumbar ROM limited Skin General skin exam: no rashes or lesions noted Neuro General: patient oriented x3 and No gait normal (Patient is non ambulatory, uses wheelchair) Cranial nerves: Yes CN's II-XII intact bilaterally Extrem Other: Both legs are very thin and weak, peripheral pulses are not palpable. General: Yes no clubbing, cyanosis or edema (Right foot shows previous amputation of the toes.) and Yes no calf tenderness Psych Appearance: grossly normal and well kempt Speech and movement: Normal speech and movement present Assessment & Plan Assessment & Plan (1) COPD (chronic obstructive pulmonary disease): Comment: HE HAS COMBINATION OF BRONCHIAL ASTHMA/COPD, WELL CONTROLLED AT PRESENT. HIS FEELING OF MUCUS BUILDING IN THE THROAT, IS SECONDARY TO NARROW UPPER AIRWAYS AND ALSO SMOKING. IT IS MUCH LESS AND HE CLAIMS THAT HE HAS STOP SMOKING COMPLETELY. Code(s): J44.9 - Chronic obstructive pulmonary disease, unspecified Category: Medical Plan: CONTINUE TO USE SYMBICORT 160-4.52 PUFFS B.I.D. AND IPRATROPIUM-ALBUTEROL SOLUTION IN THE NEBULIZER Q 6 HOURS P.R.N. CURRENTLY USING TWICE A DAY. (2) Smoker unmotivated to quit: Comment: LIFELONG HISTORY OF SMOKING. HE HAS BEEN CUTTING DOWN ON HIS SMOKING .CURRENTLY HE DOES NOT SMOKE ANYMORE. Code(s): F17.200 - Nicotine dependence, unspecified, uncomplicated Category: Social Hx Plan: COMMENDED FOR QUITTING SMOKING COMPLETELY. AND STRESSED THAT HE SHOULD NOT GO BACK TO SMOKING. NEEDS TO PARTICIPATE IN ANNUAL LUNG SCREENING PROGRAM. (3) RODGER (obstructive sleep apnea): Comment: HE DOES HAVE PAST HISTORY OF OBSTRUCTIVE SLEEP APNEA, HE HAD STOPPED USING THE CPAP. HIS LAST STUDY IN DECEMBER 2022 SHOWED ONLY MILD OBSTRUCTIVE SLEEP APNEA. DURING A RECENT HOSPITALIZATION, HE WAS TREATED WITH CPAP AND HE DID WELL. HE WANTS TO START USING CPAP AGAIN. HAD APPOINTMENT FOR LAB BASED POLYSOMNOGRAM STUDY , MISSED ON THE DAY OF APPOINTMENT BECAUSE OF LACK OF TRANSPORTR . WANTS TS TO GO FOR THE STUDY, Code(s): G47.33 - Obstructive sleep apnea (adult) (pediatric) Category: Medical Plan: WILL LOOK IN TO THE SCHEDULING, AND RECOMMEND THAT HE SHOULD HAVE APPOINTMENT FOR POLYSOMNOGRAM STUDY IN THE SLEEP LAB. (4) Obesity (BMI 30-39.9): Comment: HE IS GROSSLY OBESE, HAS ROUND FACE VERY OBESE NECK AND ALSO CROWDED UPPER AIRWAYS DIFFICULT FOR HIM TO LOSE WEIGHT. Code(s): E66.9 - Obesity, unspecified Category: Medical Plan: PATIENT IS ON DIALYSIS PROGRAM AND BEING TREATED FOR DIABETES MELLITUS HE IS ON MON CHELE INJECTIONS AND IS ENCOURAGED TO CONTINUE WITH THAT (5) Allergic rhinitis: Comment: MILD, SEASONAL, IN ACTIVE AT PRESENT Code(s): J30.9 - Allergic rhinitis, unspecified Category: Medical Plan: USE [id number] ANTIHISTAMINICS NEEDED Coding Level of Care Code Est Pt Level 4 (41988) Diagnoses COPD (chronic obstructive pulmonary disease) J44.9 Smoker unmotivated to quit F17.200 RODGER (obstructive sleep apnea) G47.33 Obesity (BMI 30-39.9) E66.9 Allergic rhinitis J30.9
--- OUTSIDE RECORDS SUMMARY | 2024-07-06 11:56 | XMS_ITS ---
Author Name [facility] Address [address] [place] [address] Phone [phone] Organization [facility] Kidney Car e, NA DOCUMENT DISCLAIMER Multiple document versions may exist, please be sure you review the latest version. The information in the [facility] Emergency Department Continuity of Care Document represents a summary of certain health and medical information. It may not contain the complete medical history for the patient and should be independently verified. The represented time in the document is Eastern Time. PROBLEMS Problem Code Status Onset Date Hypotension, unspecified I95.9 Active May Allergy, unspecified, initial encounter T78.40XA A ctive June 09, 2024 Anaphylactic shock, unspecified, initial encounter T78 .2XXA Active June 09, 2024 Coagulation defect, unspecified D68.9 Active June 09, 2024 Angina pectoris, unspecified I20.9 Active June 09, 2024 Pruritus, unspecified L29.9 Active June 09, 2024 Headache, unspecified R51.9 Active June 09, 2024 Nausea R11.0 Active June 09, 2024 Diarrhea, unspecified R19.7 Active June 09, 2024 Other abnormalities of breathing R06.89 Active June 09, 2024 Anemia in chronic kidney disease D63.1 Active June 09, 2024 Type 2 diabetes mellitus wit h diabetic neuropathy, unspecified E11.40 Active June 09, 2024 Type 2 diabetes mellitus wit h diabetic peripheral angiopathy without gangrene E11.51 Active June 09 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 E11.610 Active June 09, 2024 Vitamin D deficiency, unspecified E55.9 Active June 09, 2024 Obesity, unspecified E66.9 Active May 182024 Mixed hyperlipidemia E78.2 Active May 182024 Nicotine dependence, cigarettes, uncomplicated F17.210 Active June 09, 2024 Hypertensive heart and chron ic kidney disease without heart failure, with stage 1 through stage 4 chronic kidney disease, or unspecified chronic kidney disease I13.10 Active June 09, 2024 Unspecified sequelae of cerebral infarction I69.30 Active June 09, 2024 Chronic obstructive pulmonary disease, unspecified J44 .9 Active June 09, 2024 correction (current) use of insulin Z79.4 Active June 09, 2024 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 (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) use of aspirin Z79.82 Active June 09, 2024 Long-term (current) use of i njectable non-insulin antidiabetic drugs Z79.85 Active June 09, 2024 Acquired absence of other right toe(s) Z89.421 Ac tive June 09, 2024 Dependence on renal dialysis Z99.2 Active June 09, 2024 Dependence on wheelchair Z99.3 Active May Secondary hyperparathyroidism of renal origin N25.81 Active June 09, 2024 Iron deficiency anemia, unspecified D50.9 Activ e June 09, 2024 Encounter for screening for respiratory tuberculosis Z11.1 Active June 09, 2024 Fluid overload, unspecified E87.70 Active June 09, 2024 Encounter for immunization Z23 Active A pril 2024 Fever, unspecified R50.9 Active June 09, 2024 Cellulitis of right lower limb L03.115 Active June 09, 2024 Pain, unspecified R52 Active June 09, 2024 Type 2 diabetes mellitus wit h other skin complications E11.628 Active June 09, 2024 Other disorders of phosphorus metabolism E83.39 Active June 09, 2024 Other disorders of phosphorus metabolism E83.39 Active [...] 2024 Encounter for screening for respiratory tuberculosis Z11.1 Active March 14, 2024 Iron deficiency anemia, unspecified D50.9 Activ e March 11, 2024 Secondary hyperparathyroidism of renal origin N25.81 Active March 11, 2024 End stage renal disease N18.6 Active Phillip garima 2024 Dependence on wheelchair Z99.3 Active Benjamin kenyon 2024 Dependence on renal dialysis Z99.2 Active March 11, 2024 Acquired absence of other right toe(s) Z89.421 Ac tive March 11, 2024 Long-term (current) use of i njectable non-insulin antidiabetic drugs Z79.85 Active March 11, 2024 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 (current) use of aspirin Z79.82 Active March 11, 2024 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 (current) use of insulin Z79.4 Active March [...] kidney disease D63.1 Active March 11, 2024 Type 2 diabetes mellitus wit h diabetic chronic kidney disease E11.22 Active March 03, 2024 End stage renal disease N18.6 Active Phillip lomaxy 2024 ALLERGIES AND ADVERSE REACTIONS No Known Allergies SOCIAL HISTORY Tobacco Use Status Tobacco Type Former smoker Cigarettes Caregiver Characteristics Need Level ADL Type Relationship of Caregiver Requires some assistance Shopping Meal preparation Laundry Housekeeping M edication management Managing medical appointments Managing finances Family Characteristics of Home environment Housing Status Patient Resides With and MIL Gender and Sex Information Gender Identity Sexual Orientation Male Heterosexual MEDICATIONS Prescribed Medications for Dialysis Treatments Medication Instructions Dosage Route Start Date End Date Status Heparin Pork 1,000 Units/mL CatheterLock SelfAdmin Home Arterial Post Dialysis, Every Treatment 2000 units Arterial Red Port June 16, 2024 June 15, 2025 Active Heparin Pork 1,000 Units/mL CatheterLock SelfAdmin Home Venous Post Dialysis, Every Treatment 2000 units Venous Blue Port June 16, 2024 June 15, 2025 Active Heparin Sodium (Porcine) 1,000 Units/mL Catheter Lock Arterial Post Dialysis, Every Treatment 2000 units Arterial Red Port June 10, 2024 June 09, 2025 Discontinued Heparin Sodium (Porcine) 1,000 Units/mL Catheter Lock Arterial Every Treatment 2000 units Arterial Red Port March 14, 2024 March 13, 2025 Discontinued Heparin Sodium (Porcine) 1,000 Units/mL Catheter Lock Venous Post Dialysis, Every Treatment 2000 units Venous Blue Port June 10, 2024 June 09, 2025 Discontinued Heparin Sodium (Porcine) 1,000 Units/mL Catheter Lock Venous Every Treatment 1999 units Venous Blue Port March 14, 2024 March 13, 2025 Discontinued Iron Sucrose (Venofer) During Dialysis, Once 50 mg Intravenous - push June 17, 2024 Discontinued Mircera During Dialysis, Once 75 mcg Subcutaneous June 17, 2024 Discontinued Home Medications Medication Instructions Dosage Route [...] 1 tablet ORAL March 25, 2024 Active clopidogrel 75 mg Take by mouth once a day 1 tablet ORAL July 04, 2024 Active doxycycline Unknown May 16, 2024 Active duloxetine 30 mg Take by mouth twice a day 1 capsule ORAL March 14, 2024 Active ergocalciferol (vitamin D2) 1,250 mcg (50,000 unit) Take by mouth once a week as directed 1 capsule ORAL March 18, 2024 September 15, 2024 Active furosemide 80 mg Take once a day 1 tablet ORAL Benjamin 2024 Active isosorbide mononitrate 30 mg once [...] unit SUBCUTANEOUS March 14, 2024 Active omega 5-suq-igv-fish oil 1,000 (120-180) mg Take by mouth twice a day 2 capsule ORAL March 14, 2024 Active prazosin 1 mg Take by mouth every night at bedtime 1 capsule ORAL March 14, 2024 Active Sevelamer Carbonate Tablet 800 mg Take By Mouth Three times a day With Meals 2 Tablet By Mouth May 30, 2024 May 26, 2025 Active Trulicity 1.5 mg/0.5 mL Inject subcutaneously once a week 1 1/2 mg SUBCUTANEOUS March 14, 2024 Active gabapentin 100 mg every night at bedtime 1 ORAL June 14, 2024 Discontinued VITAL SIGNS Post-Treatment Vital Signs Vital Sign Value Date / Time Blood Pressure-standing 192/93 mmHg July 04, 2024 11:11 AM Heart Rate 87 beats per minute July 04, 2024 11:11 AM Temperature 97.1 deg. F July 04, 2024 11: 11 AM Weight Vital Sign Value Date / Time Estimated Dry Weight 114 kg June 16 11:59 PM Pre-Dialysis 115.4 kg July 04, 2024 11: 11 AM Post-Dialysis 114.4 kg July 04, 2024 11: 11 AM Other Other Value Date / Time Height 188 cm June 09, 2024 1 2:00 AM Body Mass Index 32.25 kg/m2 July 06, 2024 09: 49 AM LAB RESULTS Hematology Result Type Result Value Relevant Referen ce Range Interpretation Date Neutrophils 74.1 % 40.0 - 75.0 % - February WBC (No Diff) 9.61 1000/mcL 4.80 - 10.80 1000/mcL - March 14, 2024 Platelets 294 1000/mcL 130 - 400 1000/mcL - Phillip garima2024 UIBC/TIBC 138 mcg/dL 155 - 355 mcg/dL [...] 20 - 55 % Low March 21 UIBC/TIBC 180 mcg/dL 155 - 355 mcg/dL - March 21, 2024 Ferritin 272 ng/mL 22 - 322 ng/mL - March Hemoglobin x 3 28.5 % 42.0 - 54.0 % Low r 2024 UIBC/TIBC 165 mcg/dL 155 - 355 [...] - 31.8 pg - April 19, 2024 Ferritin 1253 ng/mL 22 - 322 ng/mL High May 17, 2024 RDW 13.3 % 11.5 - 14.5 % - May 17, MCHC 31.5 g/dL 30.0 - 36.0 g/dL [...] - 160 mcg/dL Low May 17, 2024 UIBC/TIBC 128 mcg/dL 155 - 355 mcg/dL Low May Lymphocytes 8.2 % 19.0 - 48.0 % Low May 17, 2024 Neutrophils 80.0 % 40.0 - 75.0 % High May 17, 2024 ROBI 2.0 % 0.0 - 4.0 % - May 17 Basophils 0.3 % 0.0 - 1.5 % - May 17 Eosinophil 4.9 % 0.0 - 7.0 % - May 17 Monocytes 4.6 % 3.0 - 10.0 % - May 17 WBC (No Diff) 12.70 1000/mcL 4.80 - 10.80 1000/mcL High May 17, 2024 Hemoglobin x 3 25.5 % 42.0 - 54.0 % Low May 172024 Platelets 401 1000/mcL 130 - 400 1000/mcL High June 16, 2024 Hemoglobin x 3 28.5 % 42.0 - 54.0 % Low June 16, 2024 WBC (No Diff) 8.48 1000/mcL 4.80 - 10.80 1000/mcL - June 16, 2024 RBC 3.31 mill/mcL 4.70 - 6.10 mill/mcL Low June 16, 2024 HCT 29.1 % 42.0 - 52.0 % Low June 16 MCH 28.7 pg 27.0 - 31.0 pg - June 16 MCHC 32.7 g/dL 30.0 - 36.0 g/dL - June 16, 2024 RDW 14.9 % 11.5 - 14.5 % High June 16 HGB 9.5 g/dL 14.0 - 18.0 g/dL Low June 16, 2024 Iron 73 mcg/dL 45 - 160 mcg/dL - June 16 025 UIBC/TIBC 179 mcg/dL 155 - 355 mcg/dL - June 16, 2024 TIBC (Calc) 252 mcg/dL 185 - 515 mcg/dL - June 16, 2024 Transferrin Sat. (Calc) 29 % 20 - 55 % - June 16, 2024 ROBI 1.3 % 0.0 - 4.0 % - June 16, 2024 Ferritin 347 ng/mL 22 - 322 ng/mL High June 16 Eosinophil 6.1 % 0.0 - 7.0 % - June 16, 2024 Basophils 0.4 % 0.0 - 1.5 % - June 16, 2024 Neutrophils 71.7 % 40.0 - 75.0 % - June 16 Lymphocytes 15.8 % 19.0 - 48.0 % Low June 16 Monocytes 4.7 % 3.0 - 10.0 % - June 16, 2024 Metabolic/Renal Result Type Result Value Relevant Reference Range Interpre tation Date URR, Calc 45 % 65 - 80 [...] - 108 mEq/L Low May 17, 2024 BUN 64 mg/dL 6 - 19 mg/dL High June 16, 2024 Creatinine, Serum 6.39 mg/dL 0.60 - 1.30 mg/dL High June 16, 2024 BUN/Creat Ratio 10.0 10.0 - 20.0 - June 16, 2024 Hemoglobin A1c 6.8 % 4.8 - 5.9 % High June 16 BUN, Post 33 mg/dL 6 - 19 mg/dL High June 16, 2024 URR, Calc 48 % 65 - 80 % Low June 16, 2024 Bicarbonate 23 mEq/L 22 - 29 mEq/L - June 16 25 Sodium 137 mEq/L 136 - 145 mEq/L - June 16 Potassium 4.8 mEq/L 3.5 - 5.1 mEq/L - June 16 Chloride 98 mEq/L 96 - 108 mEq/L - June 16 HD Adequacy Result Type Result Value Relevant Referen ce Range Interpretation Date Simple Kt/V (Home HD Only) 0.60 No [...] Ran ge Provided - May 17, 2024 Simple Kt/V (Home HD Only) 0.65 No Reference Range Provided Normal June 16, 2024 Bone/Mineral Result Type Result Value Relevant Referen ce Range Interpretation Date PTH-Intact, Plasma 552 pg/mL 16 - 80 pg/mL High Benjamin ua2024 Vitamin D 25 Hydroxy 14.2 ng/mL 30.0 - 100.0 ng/mL Low March 14, 2024 PTH-Intact, Plasma 473 pg/mL 16 - 80 pg/mL High Feb ruary 2024 Calcium, Total 8.1 mg/dL 8.4 - 10.2 mg/dL Low Ishaan h 2024 Corrected Ca x P Product 40 0 - 54 - April 19, 2024 Alkaline Phosphatase 62 U/L 40 - 129 U/L - Pr rc 2024 Phosphorus 4.8 mg/dL 2.6 - 4.5 [...] - 10.2 mg/dL Low Apri l 2024 Corrected Ca x P Product 49 0 - 54 - June 16, 2024 Magnesium 2.0 mg/dL 1.6 - 2.6 mg/dL - June 16 PTH-Intact, Plasma 609 pg/mL 16 - 80 pg/mL High June 16, 2024 Alkaline Phosphatase 61 U/L 40 - 129 U/L - Ma y 2024 Vitamin D 25 Hydroxy 37.7 ng/mL 30.0 - 100.0 ng/mL - June 16, 2024 Calcium, Total 8.3 mg/dL 8.4 - 10.2 mg/dL Low June 16, 2024 Phosphorus 5.8 mg/dL 2.6 - 4.5 mg/dL High May 01, 2 025 Ca x P Product 48 0 - 54 - June 16 25 Liver/Nutrition Result Type Result Value Relevant Reference Range Interpre tation Albumin (BCG) 3.6 g/dL 3.5 - 5.2 [...] g/dL 3.5 - 5.2 g/dL Low May Glucose 212 mg/dL 70 - 100 mg/dL High June 16 Albumin (BCG) 3.7 g/dL 3.5 - 5.2 g/dL - June 16, 2024 SGOT (AST) 12 U/L 13 - 39 U/L Low June 16, 2024 SGPT (ALT) 9 U/L 7 - 52 U/L - June 16, 2024 Lipid Result Type Result Value Relevant Referen [...] mg/dL 0 - 199 mg/dL - May Immunochemistry Result Type Result Value Relevant Reference Range Interpre tation HCV s/co ratio 0.05 0.00 - 0.79 - June 16 Trace Elements Result Type Result Value Relevant [...] (anti-HBc) Negative No Reference Range Provided - June 16, 2024 HCV Ab (anti-HCV) Nonreactive No Reference R brie Provided - June 16, 2024 Hep B Surface Ag (HBsAg) Negative No Reference Range Provided - June 16, 2024 Hep B Surface Ab (anti-HBs) < 10 mIU/mL No Reference Range Provided - June 16, 2024 Microbiology-Culture, Blood Result Type Result Value [...] NxStage Hemodialysis Data Element Value Order Date/Time June 16, 2024 Frequency 4X Week Treatment Days Isabella [...] Resuscitation status Full Code Cole Collazo At hreya Jun 10, 2024 DIALYSIS TREATMENTS NxStage-HHD Date Pre-Treatment Vitals Post-Treatment Vitals Durat ion(hr) Exchanges BFR(mL/min) Cartridge Type Dialysate Dialysis Access Meds-entered by patient June 27, 2024 Weight 117.6 kg Weight 116.6 kg 2:37 1 of 20 124 CAR-172 2K 45 Lactate Blood Pressure-standing 231/127 mmHg Blood Pressure-sitting 138/72 mmHg 2 of 20 - Temperature 96.6 deg. F Blood Pressure-standing 138/72 mmHg 3 of 20 225 - - Heart Rate 70 beats per minute 4 of 20 100 - - Temperature 97.6 deg. F 5 of 20 400 - - - - 6 of 20 400 - - - - 7 of 20 - - - - - 8 of 20 - - - - - 9 of 20 400 - - - - 10 of 20 400 - - - - 11 of 20 400 - - - - 12 of 20 400 - - - - 13 of 20 400 - - - - 14 of 20 400 - - - - 15 of 20 400 - - - - 16 of 20 400 - - - - 17 of 20 400 - - - - 18 of 20 400 - - - - 19 of 20 400 - - - - 20 of 20 - July 04, 2024 Weight 115.4 kg Weight 114.4 kg 2:6 1 of 4 400 CAR-172 2K 45 Lactate Hemodialysis-CV Catheter-Tunneled, Chest, Right Subclavian Heparin 2000 Access Blood Pressure-sitting 211/111 mmHg Blood Pressure-standing 192/93 mmHg 2 of 4 400 Blood Pressure-standing 211/111 mmHg Heart Rate 87 b eats per minute 3 of 4 400 Heart Rate 82 beats per minute Temperature 97.1 deg. F 4 of 4 - Temperature 97 deg. F - - - -
--- OUTSIDE RECORDS SUMMARY | 2024-07-06 11:56 | XMS_ITS | Data Portability ---
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 Lab None recorded. Referral None recorded. Procedures None recorded. Surgeries None recorded. Imaging None recorded. Medication Orders tamsulosin 0.4 mg capsule 2022 023 [place], [place] - [id number], [address] [place], [address], 19:11:02 ipratropium 0.5 mg-albutero l 3 mg (2.5 mg base)/3 mL nebulizatio n soln 2022 023 [facility], [place] - [id number], [address] [facility], [place], [address], 3 19:41:14 Patient TargetsNo targets recorded. Patient [...] Not Available Not Available Comfort EZ Pen [place] 31 gauge x 5/16 USE 3 (THREE) TIMES A DAY active Not Available Not Available Not Available Artificial Tears ([id number] prasanna-glyceri n) 1 %-0.2 %-0.2 % eye [...] 6786 Haylee Reyes MD Main - [facility] [address] [place] [phone] 02/20/2022 18:47:32 02/24/2022 09:20:13 Increased frequency of urination [id number] R35.0 Cough [id number] R05.9 Health Concerns Section Related Observation LastModified by Organization Detai ls LastModified Time None Recorded Concern Status LastModified by Organization Details LastModified Time None Recorded Advance Directives Directive None Recorded Payers Insurance Date Sequence Insurance Name Policy Number Policy Munoz Covered Member ID Munoz Member ID Guarantor Name 11/06/2023 1 [facility] - DOS PRIOR TO 2022 - DUAL ELIGIBLE (MEDICARE REPLACEMENT/ADV ANTAGE - HMO) Jam Ferguson [id number] Jam Ferguson 11/06/2023 1 [facility] - DOS ON OR AFTER 2022 - DUAL ELIGIBLE - ASSISTED OPTIONS AND ONE CARE (MEDICARE REPLACEMENT/ADV ANTAGE - HMO) Jam Ferguson [id number] Jam Ferguson Notes Date Note Type Note [...] Comments: 4 way call to obtain referral; child day care provider(interpreted), nurse, member and this nurse. Per care [...] seeking 911/ED, but is acceptable to an [facility] visit. ...................... ...................... ...................... ...................... ...................... ...................... ......... Lumber Stacker Driver Note: Sent to evaluate pt with polycomplaints [...] of wound was taken and uploaded to [employer]. Pt's has been changing bandage BID with [...] protect the wound when pt tries ADL's. [facility] is consulted and he orders duoneb, which is administered. Post neb reassessment of lungs reveal rales in lower L and still slight rhonchi in R but pt endorses relief. [facility] to order flomax, albuterol MDI, and combivent's to pt's pharmacy. [facility] will recommend repeat visit tomorrow for further evaluation/follow up and to possibly obtain urine sample. Provided reassurances to family that their concerns were valid and heard tonight with assistance of [facility]. Helped daughter write down all interventions performed tonight and which scripts were sent to pharmacy, provided pt education. Advised that pt will be needing f/u care with several different specialists. Circled back with [facility] who stated he will notify care team of all concerns that were brought to him tonight. Went over red flags and no further questions or concerns at this time and family will await visit tomorrow. ...................... ...................... ...................... ...................... ...................... ...................... ......... Disposition: Fulfilled Haylee Reyes MD [address] [place] [address],[address] [facility], [place], [address], KAY MORALES 02/20/2022 23:04:28
--- OUTSIDE RECORDS SUMMARY | 2024-07-06 11:56 | XMS_ITS | Clinical Summary ---
Author Organization [facility] Address [address] [place] [address] Phone Care Team Providers Care Furniture Restorer Name Role Phone Unavailable Primary Care Provider Unavailabl e Encounters Date Type Department Care Team Description 05/16/2024 Lab Requisition [facility] - Main Lab [address] [facility] [place] [address] Cole Del Valle MD Anemia, unspecified 04/15/2024 Telephone [facility] Cardiology [address] [place] [address] Provider, Not In System Medical Records from Last 3 Months Surgical History Surgery Date Site/Laterality Comments OTHER SURGICAL HISTORY 11/06/2016 Right PROCEDURE: ---- OTHER ----; COMMENT: 4 toe amp right foot BYPASS GRAFT PROCEDURE: VT AMPUTATION TOE METATARSOPHALANGEAL JOINT; COMMENT: rt foot Medical History Medical History Date Comments MRSA infection 04/27/2018 DX:MRSA infectio n; COMMENT: Recurrent boils Osteomyelitis ([facility] V24, [facility] V28) 11/17/2018 DX:Osteomyelitis ([facility]); COMM ENT: From right diabetic foot infection Essential hypertension 10/16/2017 DX:Essent ial hypertension PAD (peripheral artery disea se) ([facility] V24) 04/21/2018 DX:PAD (peripheral artery di sease) ([facility]) DM (diabetes mellitus), type 2, uncontrolled, periph [...] due to t ype 2 diabetes mellitus ([facility] [place], [facility] [place] 04/21/2018 DX:Ulcer of right foot due t o type 2 diabetes mellitus ([facility]) Hyperlipidemia 05/25/2019 DX:Hyperlipidemi a 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 [facility] Polysomnogram treatment study. Da* Tobacco use disorder 10/16/2017 DX:Tobacco use disorder Moderate episode of recurren t major depressive disorder ([facility] V24, [facility] V28) 11/12/2017 DX:Moderate episode of recur rent major depressive disorder ([facility]) Fibromyalgia 01/10/2019 DX:Fibromyalgia; COMMENT: Follows with [place] [...] LAB HEMETOLOGY METHOD 05/16/2024 12:42 PM EDT [facility] Blood Venous blood specimen / Unknown 05/16/2024 9:30 AM EDT 05/16/2024 12:28 PM EDT Cole Del Valle MD LAB BLOOD ORDERABL ES Final Result [facility] [address] [place] [address], [place] [phone] from Last 3 Months Insurance [place] - [place]
--- OUTSIDE RECORDS SUMMARY | 2024-07-06 11:56 | XMS_ITS ---
Author Organization [facility] Address [address] [place] [address] Care Team Providers Care Weigher Bulker Name Role Phone Riya Olmos MD Primary Care Provider Transplant Episode Kidney Candidate [facility] ([place], [place]) - [facility] Evaluation began on 04/07/2024 Marked as Active on 04/07/2024 Kidney CoordinatorAnabell Arana RN Fax: N/A Email: N/A Scores Score Value Updated Exceptions/Reas ons CPRA Not available EPTS (Calc) 56 07/06/2024 Care Team Name Role Phone Fax Email Anabell Arana RN Kidney Coordinator [phone] N/A N/A Riya Olmos MD Academic Primary Care Attending [phone] N/A N/A Cloe Del Valle Referring Physician [phone] N/A Events Pre-Transplant Referred: 03/02/2024 Evaluation began: 04/07/2024 Dialysis History Dialysis History Start End Type Comments Center 03/03/2024 Home Hemodialysis M, Tu, Th, [facility] P [facility] Dialysis [facility] Information Center Phone Fax Address [facility] [phone] [place] [address]
--- OUTSIDE RECORDS SUMMARY | 2024-07-06 11:56 | XMS_ITS | Encounter Summary ---
Author Organization [facility] Address [address] [place] [address] Care Team Providers Care De Icer Finisher Name Role Phone Unavailable Primary Care Provider Unavailabl e Encounter Details Date Type Department Care Team (Late st Contact Info) Description 05/16/2024 Lab Requisition [facility] - Main Lab [address] [place] [address] Cole Del Valle MD [address] [place] [address] Anemia, unspecified Social History Tobacco Use Types [...] LAB HEMETOLOGY METHOD 05/16/2024 12:42 PM EDT [facility] Blood Venous blood specimen / Unknown 05/16/2024 9:30 AM EDT 05/16/2024 12:28 PM EDT us Cole Del Valle MD LAB BLOOD ORDERABL ES Final Result [facility] [address] [place] [address], documented in this encounter Visit Diagnoses Diagnosis Anemia, unspecified documented in this encounter
--- OUTSIDE RECORDS SUMMARY | 2024-07-06 11:56 | XMS_ITS | Clinical Summary ---
Author Organization [facility] Address [address] [place] [address] Care Team Providers Care Food Taster Name Role Phone Riya Olmos MD Primary Care Provider Allergies No known active allergies Medications amLODIPine [...] Encounters Date Type Department Care Team Description 06/15/2024 1:02 PM EDT - 06/15/2024 11:59 PM EDT Hospital Encounter [facility] Building Cardiac Ultrasound [address] [place] [address] Saurabh Heck MD Type 2 diabetes mellitus with other circulatory complication, with long-term current use of insulin ([facility]) Discharge Disposition: Home or Self Care () 05/24/2024 Abstract [facility] Transplant Department [address] [place] [address] Anabell Arana, [place] 05/17/2024 Telephone [facility] Transplant Department [address] [place] [address] Anabell Arana, [place]IE 05/03/2024 Telephone [facility] Transplant Department [address] [place] [address] Anabell Arana, RN 04/27/2024 8:41 AM EDT - 04/27/2024 11:59 PM EDT Hospital Encounter [facility] Ultrasound [address] [place] [address] Saurabh Heck MD Type 2 diabetes mellitus with other circulatory complication, with long-term current use of insulin Discharge Disposition: Home or Self Care () 04/20/2024 Orders Only [facility] Nephrology Clinic [address] [place] [address] Service Desk Lead: Saurabh Brink MD Type 2 diabetes mellitus with other circulatory complication, with long-term current use of insulin (Primary Dx) 04/19/2024 Orders Only [facility] Nephrology Clinic [address] [place] [phone] Service Desk Lead: Saurabh Brink MD 04/15/2024 Abstract [facility] Transplant Department [address] [place] [address] Valerio Barrow 04/11/2024 Abstract [facility] Transplant Department [address] [place] [address] Anabell Arana RN from Last 3 Months Immunizations Immunization [...] Sign Reading Time Taken Comments Blood Pressure 151/89 06/15/2024 1:57 PM EDT Pulse 84 04/27/2024 9:24 AM EDT Temperature 36.7 ??C (98.1 ??F) 04/07/2024 8:41 AM ES T Respiratory Rate 20 04/27/2024 9:24 AM EDT Oxygen Saturation 99% 04/27/2024 9:24 AM EDT Inhaled Oxygen Concentration - - Weight 118.8 kg (262 lb) 06/15/2024 1:57 PM EDT Height 188 cm (6' 2 ) 06/15/2024 1:57 PM EDT Body Mass Index 33.64 06/15/2024 1:57 PM EDT Plan of Treatment Upcoming Encounters Date Type Department Care Team (Late st Contact Info) Description 04/06/2025 11:20 AM EST Follow-Up [facility] Renal Transplant [address] [place] [address] Saurabh Heck MD [address] [place] [address] Health Maintenance Due Date Last Done Comments [...] Screening Completed 04/07/2024 Procedures * Due to [place] state law, this organization might not be sharing negative HIV tests. Procedure Name Priority Date/Time Associated Diagnosis Comments TRANSTHORACIC ECHO (TTE) COMPLETE W/ CONTRAST Routine 06/15/2024 2:46 PM EDT Type 2 diabetes mellitus with other circulatory complication, with long-term current use of insulin (HCC) ECHO DOBUTAMINE STRESS TEST W/ LIMITED DOPPLER, COLOR AND CONTRAST Routine 04/27/2024 9:55 AM EDT Type 2 diabetes mellitus with other circulatory complication, with long-term current use of insulin HEPATITIS C ANTIBODY W/REFLEX TO HCV RNA, QUANTITATIVE PCR Routine 04/07/2024 11:40 AM EST Pre-transplant evaluation for kidney transplant Stage 4 chronic kidney disease CBC AUTO DIFFERENTIAL Routine 04/07/2024 11:40 AM EST Pre-transplant evaluation for kidney transplant Stage 4 chronic kidney disease PHOSPHORUS Routine 04/07/2024 11:40 AM EST Pre-transplant evaluation for kidney transplant Stage 4 chronic kidney disease from Last 3 Months or Most Recently Relevant to Health Maintenance Results * Due to [place] state law, this organization might not be sharing negative HIV tests. * TRANSTHORACIC ECHO (TTE) COMPLETE W/ CONTRAST (06/15/2024 2:46 PM EDT) BSA 2.49 m2 LVIDD 4.6 cm LVIDS 3.8 cm IVS 1.2 cm Relative Wall Thickness 0.49 PW 1.1 cm LV Mass Index 80 g/m2 MV Peak E Akbar 0.51 m/s MV avg E/e' 8.50 MV Peak A Akbar 1.00 m/s E/A ratio 0.50 Lateral e' 0.05 m/s E wave deceleration time 260.1 msec Septal e' 0.07 m/s MV E/E' Tissue Velocity Lateral 10.48 MV E/e' septal 7.15 LVOT peak akbar 0.89 m/s TAPSE 2.8 cm LVOT peak VTI 19.92 cm Ascending aorta 3.4 cm Ao-asc Z score 0.01 LV ED Post Wall 1.10 LV ES Dimension 3.80 LV ED Dimension 4.60 RIGHT ATRIAL PRESSURE 3 mmHg Sinus 3.4 cm Aortic Root Z-score -1.44 Dummy BSA 2.44 Anatomical Region Laterality Modality Heart Echocardiography Narrative 06/15/2024 3:05 PM EDT ?Left ventricular ejection fraction is in the normal range with visually estimated LVEF 65%. ?No significant valvular disease identified. ?Small localized pericardial effusion present around the left ventricle. Left Ventricle The left ventricle size is normal. There is increased relative wall thickness and normal left ventricular mass index, consistent with concentric remodeling. No segmental wall motion abnormalities detected, although this possibility cannot be fully excluded based on the images available. Left ventricular ejection fraction is in the normal range with visually estimated LVEF 65%. Normal left ventricular diastolic function. Right Ventricle Right ventricle size is normal. Normal right ventricular systolic function. TAPSE is normal (>=1.7 cm). Tissue Doppler peak systolic velocity is normal (>9.5 cm/s). Left Atrium Left atrium size is normal. Right Atrium Right atrium is normal in size. IVC/SVC IVC diameter is less than or equal to 21 mm and decreases greater than 50% during inspiration; therefore the estimated right atrial pressure is normal (~3 mmHg). Mitral Valve Mitral valve structure is normal. Trace mitral regurgitation. No mitral stenosis. Tricuspid Valve Tricuspid valve structure is normal. Trace tricuspid regurgitation. No tricuspid stenosis. Aortic Valve There is a trileaflet aortic valve. No aortic regurgitation. No aortic stenosis. Pulmonic Valve Pulmonic valve structure is normal. Trace pulmonic regurgitation. No pulmonic stenosis. Ascending Aorta The sinuses of Valsalva and ascending aorta are normal. Pericardium Small localized pericardial effusion present around the left ventricle. Pulmonary Artery TR jet was inadequate to estimate pulmonary artery pressure. Atrial Septum No interatrial shunt detected by color flow Doppler. Ventricular Septum Ventricular septum is intact. Study Details A complete echo was performed using 2D imaging, color flow Doppler and complete spectral Doppler. During the study the apical, parasternal, subcostal and suprasternal view was captured. Optison contrast was used during the study. Overall the study quality was poor. The study was technically difficult. The study was difficult due to patient's body habitus. Prior Study Prior stress echo study available for comparison. Prior study date: 04/27/2024. No significant changes noted compared to the prior study. STRESS ECHO OVERALL FINDINGS No significant valvular disease identified. us Saurabh Heck MD CV ECHO PROCEDURES Final Re sult * ECHO DOBUTAMINE STRESS TEST W/ LIMITED [...] left ventricular wall motion is globally hyperkinetic. Saurabh Heck MD CV ECHO PROCEDURES Final Re sult * (ABNORMAL) CBC Auto Differential (04/07/2024 11:40 AM EST) WBC 12.9(H) 3.8 - 10.8 10*3/uL 04/07/2024 12:05 PM EST [facility] RBC 3.83(L) 4.20 - [...] - 36.0 g/dL 04/07/2024 12:05 PM EST [facility] RDW 14.1 11.0 - 15.0 % 04/07/2024 12:05 PM EST [facility] Platelets 384 140 - 400 10*3/uL 04/07/2024 12:05 PM EST [facility] MPV 9.9 7.5 - 12.5 fL 04/07/2024 12:05 PM EST [facility] Neutrophil % 70.4 % 04/07/2024 12:05 PM EST [facility] Immature Grans % 0.7 0.0 - 0.9 % 04/07/2024 12:05 PM EST [facility] Lymphocyte % 16.9 % 04/07/2024 12:05 PM EST [facility] Monocyte % 5.9 % 04/07/2024 12:05 PM EST [facility] Eosinophil % 5.0 % 04/07/2024 12:05 PM EST [facility] Basophil % 1.1 % 04/07/2024 12:05 PM EST [facility] Neutrophil # 9.08(H) 1.50 - 7.80 10*3/uL 04/07/2024 12:05 PM EST [facility] Immature Grans # 0.09(H) <=0.03 10*3/uL 04/07/2024 12:05 PM EST [facility] Lymphocyte # 2.20 0.85 - 3.90 10*3/uL 04/07/2024 12:05 PM EST [facility] Monocyte # 0.80 0.20 - 0.95 10*3/uL 04/07/2024 12:05 PM EST [facility] Eosinophil # 0.60(H) 0.02 - 0.50 10*3/uL 04/07/2024 12:05 PM EST [facility] Basophil # 0.10 0.00 - 0.20 10*3/uL 04/07/2024 12:05 PM EST [facility] nRBC % 0.0 /100 WBCs 04/07/2024 12:05 PM EST [facility] nRBC # <0.01 <0.01 10*3/uL 04/07/2024 12:05 PM EST [facility] Blood Structure of peripheral vein / Unknown Venipuncture / Unknown 04/07/2024 11:40 AM EST 04/07/2024 11:56 AM EST us Saurabh Heck MD LAB BLOOD ORDERABLES Final Result [facility] [address] [place] [address], * Hepatitis C Antibody w/Reflex to PCR (04/07/2024 11:40 AM EST) Hepatitis C Antibody NON-REACT EMILIANO NON-REACT EMILIANO 04/07/2024 7:09 PM EST [facility] Comment: HCV antibody was non-reactive. There is no laboratory evidence of HCV infection. In most cases, no further action is required. However, if recent HCV exposure is suspected, a test for HCV RNA (test code 65490) is suggested. For additional information please refer to http://education.Latinda/faq/OOF83d4 (This link is being provided for informational/ educational purposes only.) Blood Structure of peripheral vein / Unknown Venipuncture / Unknown 04/07/2024 11:40 AM EST 04/07/2024 11:56 AM EST Narrative [facility] - 04/07/2024 7:09 PM EST [facility] Received Date: us Saurabh Heck MD LAB BLOOD ORDERABLES Final Result [facility] [address] [facility] [address], [place] [address], [facility] [address] [facility] [address], [place] [address], * Phosphorus (04/07/2024 11:40 AM EST) Phosphorus 4.4 2.5 - 4.5 mg/dL 04/07/2024 12:25 PM EST [facility] Blood Structure of peripheral vein / Unknown Venipuncture / Unknown 04/07/2024 11:40 AM EST 04/07/2024 11:56 AM EST us Saurabh Heck MD LAB BLOOD ORDERABLES Final Result [facility] [address] [place] [address], from Last 3 Months or Most Recently Relevant to Health Maintenance Insurance [facility] Care Teams Food Taster Relationship Specialty Start Date End Date Riya Olmos MD [place] [address] PCP - General Internal Medicine 06/15/24
--- OUTSIDE RECORDS SUMMARY | 2024-07-06 11:56 | XMS_ITS | Referral Summary ---
Author Organization [facility] Address [address] [place] [address] Care Team Providers Care Network Operations Lead Name Role Phone Riya Olmos MD Primary Care Provider Encounters Date Type Department Care Team Description 06/15/2024 1:02 PM EDT - 06/15/2024 11:59 PM EDT Hospital Encounter [facility] Building Cardiac Ultrasound [address] [place] [address] Saurabh Heck MD Type 2 diabetes mellitus with other circulatory complication, with long-term current use of insulin (HCC) Discharge Disposition: Home or Self Care () 05/24/2024 Abstract [facility] Transplant Department [address] [place] [address] Anabell Arana, RN 05/17/2024 Telephone [facility] Transplant Department [address] [place] [address] Anabell Arana, RN 05/03/2024 Telephone [facility] Transplant Department [address] [place] [address] Anabell Arana, RN 04/27/2024 8:41 AM EDT - 04/27/2024 11:59 PM EDT Hospital Encounter [facility] Ultrasound [address] [place] [address] Saurabh Heck MD Type 2 diabetes mellitus with other circulatory complication, with long-term current use of insulin Discharge Disposition: Home or Self Care () 04/20/2024 Orders Only [facility] Nephrology Clinic [address] [place] [phone] Outside Sales Representative: Saurabh Brink MD Type 2 diabetes mellitus with other circulatory complication, with long-term current use of insulin (Primary Dx) 04/19/2024 Orders Only [facility] Nephrology Clinic [address] [place] [address] Outside Sales Representative: Saurabh Brink MD 04/15/2024 Abstract [facility] Transplant Department [address] [place] [address] Valerio Barrow 04/11/2024 Abstract [facility] Transplant Department [address] [place] [address] Anabell Arana RN from Last 3 Months Allergies No [...] Info) Description 04/06/2025 11:20 AM EST Follow-Up [facility] Renal Transplant [address] [place] [address] Saurabh Heck MD [address] [place] [address] Procedures * Due to [place] state law, this organization might not be [...] to Health Maintenance Results * Due to [place] [employer] law, this organization might not be sharing [...] - 10.8 10*3/uL 04/07/2024 12:05 PM EST [facility] RBC 3.83(L) 4.20 - 5.80 10*6/uL 04/07/2024 12:05 PM EST [facility] Hemoglobin 10.4(L) 13.2 - 17.1 g/dL 04/07/2024 12:05 PM EST [facility] Hematocrit 33.9(L) 38.5 - 50.0 % 04/07/2024 12:05 PM EST [facility] MCV 88.5 80.0 - 100.0 fL 04/07/2024 12:05 PM EST [facility] MCH 27.2 27.0 - 33.0 pg 04/07/2024 12:05 PM EST [facility] MCHC 30.7(L) 32.0 - 36.0 g/dL 04/07/2024 12:05 PM EST [facility] RDW 14.1 11.0 - 15.0 % 04/07/2024 12:05 PM EST [facility] Platelets 384 140 - 400 10*3/uL 04/07/2024 12:05 PM EST [facility] MPV 9.9 7.5 - 12.5 fL 04/07/2024 12:05 PM EST [facility] Neutrophil % 70.4 % 04/07/2024 12:05 PM EST [facility] Immature Grans % 0.7 0.0 - 0.9 % 04/07/2024 12:05 PM EST [facility] Lymphocyte % 16.9 % 04/07/2024 12:05 PM EST [facility] Monocyte % 5.9 % 04/07/2024 12:05 PM EST [facility] Eosinophil % 5.0 % 04/07/2024 12:05 PM EST [facility] Basophil % 1.1 % 04/07/2024 12:05 PM EST [facility] Neutrophil # 9.08(H) 1.50 - 7.80 10*3/uL 04/07/2024 12:05 PM EST [facility] Immature Grans # 0.09(H) <=0.03 10*3/uL 04/07/2024 12:05 PM EST [facility] Lymphocyte # 2.20 0.85 - 3.90 10*3/uL 04/07/2024 12:05 PM EST [facility] Monocyte # 0.80 0.20 - 0.95 10*3/uL 04/07/2024 12:05 PM EST [facility] Eosinophil # 0.60(H) 0.02 - 0.50 10*3/uL 04/07/2024 12:05 PM EST [facility] Basophil # 0.10 0.00 - 0.20 10*3/uL 04/07/2024 12:05 PM EST [facility] nRBC % 0.0 /100 WBCs 04/07/2024 12:05 PM EST [facility] nRBC # <0.01 <0.01 10*3/uL 04/07/2024 12:05 PM EST [facility] Blood Structure of peripheral vein / Unknown Venipuncture / Unknown 04/07/2024 11:40 AM EST 04/07/2024 11:56 AM EST us Saurabh Heck MD LAB BLOOD ORDERABLES Final Result [facility] [address] [place] [address], [place] * Hepatitis C Antibody w/Reflex to PCR (04/07/2024 11:40 AM EST) Pathologist [facility] Hepatitis C Antibody NON-REACT EMILIANO NON-REACT EMILIANO 04/07/2024 7:09 PM EST [employer] [facility] Comment: HCV antibody was non-reactive. There is no laboratory evidence of HCV infection. In most cases, no further action is required. However, if recent HCV exposure is suspected, a test for HCV RNA (test code 28500) is suggested. For additional information please refer to http://education.[employer]/faq/DHV18z5 (This link is being provided for informational/ educational purposes only.) Blood Structure of peripheral vein / Unknown Venipuncture / Unknown 04/07/2024 11:40 AM EST 04/07/2024 11:56 AM EST Narrative [facility] 04/07/2024 7:09 PM EST [facility] Received Date: us Saurabh Heck MD LAB BLOOD ORDERABLES Final Result [facility] [address] [facility] 3rd Floor, [place] [address], [place] [phone] [facility] [address] [facility] [address] [facility], [place] [address], [place] [phone] * Phosphorus (04/07/2024 11:40 AM EST) Pathologist [facility] Phosphorus 4.4 2.5 - 4.5 mg/dL 04/07/2024 12:25 PM EST [facility] Blood Structure of peripheral vein / Unknown Venipuncture / Unknown 04/07/2024 11:40 AM EST 04/07/2024 11:56 AM EST us Saurabh Heck MD LAB BLOOD ORDERABLES Final Result [facility] [address] [place] [address], from Last 3 Months or Most Recently Relevant to Health Maintenance Insurance [facility] Care Teams Network Operations Lead Relationship Specialty Start Date End Date Riya Olmos MD [facility] [place] [address] PCP - General Internal Medicine 06/15/24
== END 2024-07-06 11:06 | disposition home or self-care (01) ==
LOC: HO.HPS 10:27
PROVIDERS: PCP Internal Medicine; Visit Provider Internal Medicine
DX: J44.9 Chronic obstructive pulmonary disease, unspecified (principal); F17.200 Nicotine dependence, unspecified, uncomplicated; G47.33 Obstructive sleep apnea (adult) (pediatric); E66.9 Obesity, unspecified; J30.9 Allergic rhinitis, unspecified
CPT/HCPCS: 99214

== ENCOUNTER → 2024-07-06 10:27 | Outpatient (BNVA) | payer OTHER, SELFPAY | PROVIDERS: PCP Internal Medicine; Visit Provider Internal Medicine | DX: G47.33 Obstructive sleep apnea (adult) (pediatric) (principal); J44.9 Chronic obstructive pulmonary disease, unspecified; J30.9 Allergic rhinitis, unspecified; E66.9 Obesity, unspecified; F17.210 Nicotine dependence, cigarettes, uncomplicated | CPT/HCPCS: 99212 ==

== ENCOUNTER 2024-07-14 11:42 | Outpatient (AMB) | payer OTHER, SELFPAY ==
--- OUTSIDE RECORDS SUMMARY | 2024-07-14 11:58 | XMS_ITS | Data Portability ---
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 Lab None recorded. Referral None recorded. Procedures None recorded. Surgeries None recorded. Imaging None recorded. Medication Orders tamsulosin 0.4 mg capsule 2022 023 [place], [place] - [id number], [address] [place], [address], 19:11:02 ipratropium 0.5 mg-albutero l 3 mg (2.5 mg base)/3 mL nebulizatio n soln 2022 023 [facility], [place] - [id number], [address] [facility], [place], [address], 3 19:41:14 Patient TargetsNo targets recorded. Patient [...] Not Available Not Available Comfort EZ Pen [place] 31 gauge x 5/16 USE 3 (THREE) TIMES A DAY active Not Available Not Available Not Available Artificial Tears ([id number] prasanna-glyceri n) 1 %-0.2 %-0.2 % eye [...] [id number] Haylee Reyes MD Main - [facility] [address] [place] [phone] 02/20/2022 18:47:32 02/24/2022 09:20:13 Increased frequency of urination [id number] R35.0 Cough [id number] R05.9 Health Concerns Section Related Observation LastModified by Organization Detai ls LastModified Time None Recorded Concern Status LastModified by Organization Details LastModified Time None Recorded Advance Directives Directive None Recorded Payers Insurance Date Sequence Insurance Name Policy Number Policy Munoz Covered Member ID Munoz Member ID Guarantor Name 11/06/2023 1 [facility] - DOS PRIOR TO 2022 - DUAL ELIGIBLE (MEDICARE REPLACEMENT/ADV ANTAGE - HMO) Jam Ferguson [id number] Jam Ferguson 11/06/2023 1 [facility] - DOS ON OR AFTER 2022 - DUAL ELIGIBLE - RESIDENTIAL OPTIONS AND ONE CARE (MEDICARE REPLACEMENT/ADV ANTAGE - HMO) Jam Ferguson [id number] Jam Ferguson Notes Date Note Type Note [...] Comments: 4 way call to obtain referral; career professional(interpreted), nurse, member and this nurse. Per care [...] seeking 911/ED, but is acceptable to an [facility] visit. ...................... ...................... ...................... ...................... ...................... ...................... ......... Milk Treater Note: Sent to evaluate pt with polycomplaints [...] of wound was taken and uploaded to [employer]. Pt's has been changing bandage BID with [...] protect the wound when pt tries ADL's. [facility] is consulted and he orders duoneb, which is administered. Post neb reassessment of lungs reveal rales in lower L and still slight rhonchi in R but pt endorses relief. [facility] to order flomax, albuterol MDI, and combivent's to pt's pharmacy. [facility] will recommend repeat visit tomorrow for further evaluation/follow up and to possibly obtain urine sample. Provided reassurances to family that their concerns were valid and heard tonight with assistance of [facility]. Helped daughter write down all interventions performed tonight and which scripts were sent to pharmacy, provided pt education. Advised that pt will be needing f/u care with several different specialists. Circled back with [facility] who stated he will notify care team of all concerns that were brought to him tonight. Went over red flags and no further questions or concerns at this time and family will await visit tomorrow. ...................... ...................... ...................... ...................... ...................... ...................... ......... Disposition: Fulfilled Haylee Reyes MD [address] [place] [address],[address] [facility], [place], [address], KAY MORALES 02/20/2022 23:04:28
--- NOTE | 2024-07-14 11:59 | A.OFFVIS_ITS ---
Intake Intake Visit Reasons: 30 min Manager Process Excellence Required: Yes Manager Process Excellence Language: Electrical Mechanical Technician Services: Manager Process Excellence Offered & Declined Manager Process Excellence Name: Pt's Daughter Accompanied by: Self / Same As Patient Allergies No Known Allergies Allergy (Verified 07/06/24 10:58) HPI Comprehensive Diabetes Asmnt Most Recent Diabetes Results: Microalb/Creat Ratio 1353.7 ug/mg cr 03/17/22 Cholesterol 146 mg/dL (<200) 02/15/24 HDL Cholesterol 34 mg/dL (>40) L 02/15/24 Triglycerides 108 mg/dL (<150) 02/15/24 Creatinine 5.86 mg/dL (0.5-1.4) H* 05/14/24 Blood Urea Nitrogen 43 mg/dL (9-16) H 05/14/24 Sodium 140 mmol/L (135-145) 05/14/24 Potassium 3.9 mmol/L (3.3-5.1) 05/14/24 Chloride 100 mmol/L (96-108) 05/14/24 Carbon Dioxide 29 mmol/L (22-29) 05/14/24 Calcium 8.6 mg/dL (8.4-10.2) 05/14/24 AST 14 U/L (5-37) 05/12/24 ALT < 6 U/L (0-40) 05/12/24 Total Protein 8.1 g/dL (6.5-8.0) H 05/12/24 Albumin 3.6 g/dL (3.5-5.0) 05/12/24 [facility] Medical History Diabetic infection of right foot Cellulitis of right foot Intermittent lightheadedness History of CVA with residual deficit Left cervical lymphadenopathy Obesity (BMI 30-39.9) Normocytic normochromic anemia COPD (chronic obstructive pulmonary disease) Smoker unmotivated to quit RODGER (obstructive sleep apnea) Generalized anxiety disorder 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 Essential hypertension Allergic rhinitis Mixed dyslipidemia Amputation, toe, traumatic Vitamin D deficiency Diabetes mellitus with neuropathy Diabetes mellitus with hyperglycemia, with long-term current use of insulin Osteoarthritis Fibromyalgia Spondylosis of cervical spine Surgical History History of foot surgery Family History Father HTN (hypertension) Diabetes Mental health disorder Mother HTN (hypertension) Brother Stroke Social History Household Members: Spouse Housing: House Do you presently have visiting nurse or other home services: No Alcohol intake: never Patient Tobacco Use Status: Former Tobacco user Cigarette Packs Per Day: 1 Cigarettes Per Day: 20.0 Years Smoked: 35 e-Cigarette/Vaping Use: Never Used Second Hand Smoke Exposure: No service: No Current occupational status: disabled Cognitive needs: No Hearing needs: No Vision needs: No Assessment & Plan Assessment & Plan (1) Diabetes mellitus with neuropathy: Code(s): E11.40 - Type 2 diabetes mellitus with diabetic neuropathy, unspecified Qualifiers: Diabetes mellitus type: type 2 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 Patient did report he is having difficulty getting sensors to work properly. Recommended to patient he upgrade to Dexcom G7, message sent to provider to send prescription for Dexcom G7 with arts and crafts instructor Patient is overdue for A1c, recommended to patient he schedule appointment with endocrine provider. Instructed Pt on Dexcom G6 verses Dexcom G7 CGM is the reading of glucose in the interstitial fluid not actual blood glucose, finger sticks are still necessary when Pt's symptom?s do not match sensor reading and if sensors prompts Pt to do a fingerstick Patient? is interested in the Dexcom G7 Reviewed delay of CGM from fingersticks Reminded pt that if symptoms do not match sensor still needs to check fingersticks. Portions of this note were created using voice recognition software, please excuse any words or phrases that may have been misinterpreted. Coding Level of Care Code Est Pt Level 1 (26529) Diagnoses Type 2 diabetes mellitus with diabetic neuropathy, without long-term current use of insulin E11.40 Diabetes mellitus type: type 2 Diabetes mellitus fpc insulin use: without ferry terminal supervisor use
== END 2024-07-14 11:55 | disposition home or self-care (01) ==
LOC: HO.ENCR 11:42
PROVIDERS: PCP Internal Medicine; Visit Provider Registered Nurse Diabetes Educator
DX: E11.40 Type 2 diabetes mellitus with diabetic neuropathy, unspecified (principal)

== ENCOUNTER → 2024-07-14 11:42 | Outpatient (BNVA) | payer OTHER, SELFPAY | PROVIDERS: PCP Internal Medicine; Visit Provider Registered Nurse Diabetes Educator | DX: E11.40 Type 2 diabetes mellitus with diabetic neuropathy, unspecified (principal) | CPT/HCPCS: 99211 ==

== ENCOUNTER 2024-07-26 15:25 | Outpatient (AMB) | payer OTHER, SELFPAY ==
[2024-07-26 15:25] VITALS: BP 132/74; PULSE 90; O2SAT 99
--- NOTE | 2024-07-26 15:25 | HO.NEPHOV ---
Vital Signs 07/26/24 15:25 Height 6 ft 2 in BP 132/74 Blood Pressure Location Lt brachial Position Sitting Pulse 90 Pulse Source Pulse Oximeter Pulse Oximetry (%) 99 Oxygen Delivery Method Room Air Intake Visit Reasons: F/U LVM Program And Research Coordinator Required: No Program And Research Coordinator Services: Program And Research Coordinator Offered & Declined (Son will translate ) Accompanied by: Son Allergies No Known Allergies Allergy (Verified 07/26/24 15:28) [facility] Medical History Diabetic infection of right foot Cellulitis of right foot Intermittent lightheadedness History of CVA with residual deficit Left cervical lymphadenopathy Obesity (BMI 30-39.9) Normocytic normochromic anemia COPD (chronic obstructive pulmonary disease) Smoker unmotivated to quit RODGER (obstructive sleep apnea) Generalized anxiety disorder 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 Essential hypertension Allergic rhinitis Mixed dyslipidemia Amputation, toe, traumatic Vitamin D deficiency Diabetes mellitus with neuropathy Diabetes mellitus with hyperglycemia, with long-term current use of insulin Osteoarthritis Fibromyalgia Spondylosis of cervical spine Surgical History History of foot surgery Family History Father HTN (hypertension) Diabetes Mental health disorder Mother HTN (hypertension) Brother Stroke Social History Household Members: Spouse Housing: House Do you presently have visiting nurse or other home services: No Alcohol intake: never Patient Tobacco Use Status: Former Tobacco user Cigarette Packs Per Day: 1 Cigarettes Per Day: 20.0 Years Smoked: 35 e-Cigarette/Vaping Use: Never Used Second Hand Smoke Exposure: No service: No Current occupational status: disabled Cognitive needs: No Hearing needs: No Vision needs: No Physical Exam Vital Signs: Last Vital Signs Pulse 90 07/26/24 15:25 BP 132/74 07/26/24 15:25 Pulse Ox 99 07/26/24 15:25 Oxygen Delivery Method Room Air 07/26/24 15:25 Results Reviewed Nephrology Results: Hgb 7.9 g/dl (14.0-18.0) L 05/14/24 WBC 10.5 X10*3/uL (4.8-10.8) 05/14/24 Plt Count 314 X10*3/uL (160-400) 05/14/24 Sodium 140 mmol/L (135-145) 05/14/24 Potassium 3.9 mmol/L (3.3-5.1) 05/14/24 Chloride 100 mmol/L (96-108) 05/14/24 Carbon Dioxide 29 mmol/L (22-29) 05/14/24 BUN 43 mg/dL (9-16) H 05/14/24 Creatinine 5.86 mg/dL (0.5-1.4) H* 05/14/24 Calcium 8.6 mg/dL (8.4-10.2) 05/14/24 Urine Protein >=1000 (4+) mg/dL (Neg-Trace) H 05/12/24 Assessment & Plan Assessment & Plan (1) ESRD (end stage renal disease): Code(s): N18.6 - End stage renal disease Category: Medical Plan see [facility] E[facility] notes Coding Level of Care Code Global (82911) Diagnoses ESRD (end stage renal disease) N18.6
--- OUTSIDE RECORDS SUMMARY | 2024-07-26 18:34 | XMS_ITS | Data Portability ---
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 Lab None recorded. Referral None recorded. Procedures None recorded. Surgeries None recorded. Imaging None recorded. Medication Orders tamsulosin 0.4 mg capsule 2022 023 [facility] - [place], [place] - [id number], [facility] [place], [address], 19:11:02 ipratropium 0.5 mg-albutero l 3 mg (2.5 mg base)/3 mL nebulizatio n soln 2022 023 [facility] [place], [place] - [phone], [address] [facility], [place], [address], 3 19:41:14 Patient TargetsNo targets recorded. Patient [...] Not Available Not Available Comfort EZ Pen [place] 31 gauge x 5/16 USE 3 (THREE) TIMES A DAY active Not Available Not Available Not Available Artificial Tears ([id number] prasanna-glyceri n) 1 %-0.2 %-0.2 % eye [...] 6786 Haylee Reyes MD Main - [facility] [address] [place] [phone] 02/20/2022 18:47:32 02/24/2022 09:20:13 Increased frequency of urination [id number] R35.0 Cough [id number] R05.9 Health Concerns Section Related Observation LastModified by Organization Detai ls LastModified Time None Recorded Concern Status LastModified by Organization Details LastModified Time None Recorded Advance Directives Directive None Recorded Payers Insurance Date Sequence Insurance Name Policy Number Policy Munoz Covered Member ID Munoz Member ID Guarantor Name 11/06/2023 1 [facility] - DOS PRIOR TO 2022 - DUAL ELIGIBLE (MEDICARE REPLACEMENT/ADV ANTAGE - HMO) Jam Ferguson [id number] Jam Ferguson 11/06/2023 1 [facility] - DOS ON OR AFTER 2022 - DUAL ELIGIBLE - HALFWAY OPTIONS AND ONE CARE (MEDICARE REPLACEMENT/ADV ANTAGE - HMO) Jam Ferguson [id number] Jam Ferguson Notes Date Note Type Note [...] Comments: 4 way call to obtain referral; patient care provider(interpreted), nurse, member and this nurse. [...] seeking 911/ED, but is acceptable to an [facility] visit. ...................... ...................... ...................... ...................... ...................... ...................... ......... Webmethods Architect Note: Sent to evaluate pt with polycomplaints [...] of wound was taken and uploaded to [employer]. Pt's has been changing bandage BID with [...] protect the wound when pt tries ADL's. [facility] is consulted and he orders duoneb, which is administered. Post neb reassessment of lungs reveal rales in lower L and still slight rhonchi in R but pt endorses relief. [facility] to order flomax, albuterol MDI, and combivent's to pt's pharmacy. [facility] will recommend repeat visit tomorrow for further evaluation/follow up and to possibly obtain urine sample. Provided reassurances to family that their concerns were valid and heard tonight with assistance of [facility]. Helped daughter write down all interventions performed tonight and which scripts were sent to pharmacy, provided pt education. Advised that pt will be needing f/u care with several different specialists. Circled back with [facility] who stated he will notify care team of all concerns that were brought to him tonight. Went over red flags and no further questions or concerns at this time and family will await visit tomorrow. ...................... ...................... ...................... ...................... ...................... ...................... ......... Disposition: Fulfilled Haylee Reyes MD [address] [place] [address],[address] [facility], [place], [address], [employer] 02/20/2022 23:04:28
== END 2024-07-26 15:41 | disposition home or self-care (01) ==
LOC: HO.HKA 15:25
PROVIDERS: PCP Internal Medicine; Visit Provider Internal Medicine Hypertension Specialist
DX: N18.6 End stage renal disease (principal)
CPT/HCPCS: 99024

== ENCOUNTER → 2024-07-26 15:25 | Outpatient (BNVA) | payer OTHER, SELFPAY | PROVIDERS: PCP Internal Medicine; Visit Provider Internal Medicine Hypertension Specialist | DX: E11.65 Type 2 diabetes mellitus with hyperglycemia (principal); E11.40 Type 2 diabetes mellitus with diabetic neuropathy, unspecified; N18.6 End stage renal disease; Z79.4 Long term (current) use of insulin | CPT/HCPCS: 99212 ==

== ENCOUNTER 2024-08-03 10:55 | Outpatient (AMB) | payer OTHER, SELFPAY ==
--- NOTE | 2024-08-03 11:00 | A.OFFVIS_ITS ---
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 Past medical: CKD, htn, hld, CHF Initially diagnosed with T2DM at age 34. Hospitalized for CHF exacerbation Oct 2023 [facility], lost significant amount of weight, dietary changes, insulin doses have decreased. Current regimen Mounjaro 7.5 mg Qwkly. has been out for a few weeks Lantus 24 units taking 18-20. Previously 48 units Novolog 8-10 units TIDCC. Previously on 30 units premeals OFF metformin 1000 mg BID due to CKD OFF Jardiance 25 mg QD CKD Dexcom not working-falls off constantly. BG 156-268 with avg 212 traditional glucometer Family history of T2DM in father and brother have Type 2 DM. eye exam UTD, Has retinopathy. Has neuropathy, last foot exam , sees podiatry. Has HLD, on statin. Had diabetes education. ROS CONSTITUTIONAL: Denies weight loss, fever and chills. HEENT: Denies changes in vision and hearing. RESPIRATORY: Denies SOB and cough. CV: Denies palpitations and CP GI: Denies abdominal pain, nausea, vomiting and diarrhea. : Denies dysuria and urinary frequency. MSK: Denies new myalgia and joint pain. SKIN: Denies rash and pruritus. NEUROLOGICAL: Denies headache PSYCHIATRIC: Denies recent changes in mood. PHYSICAL EXAM: GENERAL: in WC EYES: EOMI. Anicteric. HENT: Moist mucous membranes. No scleral icterus. No cervical lymphadenopathy. LUNGS: Clear to auscultation bilaterally. CARDIOVASCULAR: Regular rate and rhythm. No murmur. No JVD. ABDOMEN: Soft, non-tender +bs EXTREMITIES: Trace to 1+ b/l edema. Non-tender. SKIN: No foot rashes or lesions. Warm. NEUROLOGIC: No focal neurological deficits. CN II-XII grossly intact PSYCHIATRIC: Cooperative. Appropriate mood and affect [facility] Medical History Diabetic infection of right foot Cellulitis of right foot Intermittent lightheadedness History of CVA with residual deficit Left cervical lymphadenopathy Obesity (BMI 30-39.9) Normocytic normochromic anemia COPD (chronic obstructive pulmonary disease) Smoker unmotivated to quit RODGER (obstructive sleep apnea) Generalized anxiety disorder 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 Essential hypertension Allergic rhinitis Mixed dyslipidemia Amputation, toe, traumatic Vitamin D deficiency Diabetes mellitus with neuropathy Diabetes mellitus with hyperglycemia, with long-term current use of insulin Osteoarthritis Fibromyalgia Spondylosis of cervical spine Surgical History History of foot surgery Family History Father HTN (hypertension) Diabetes Mental health disorder Mother HTN (hypertension) Brother Stroke Social History Household Members: Spouse Housing: House Do you presently have visiting nurse or other home services: No Alcohol intake: never Patient Tobacco Use Status: Former Tobacco user Cigarette Packs Per Day: 1 Cigarettes Per Day: 20.0 Years Smoked: 35 e-Cigarette/Vaping Use: Never Used Second Hand Smoke Exposure: No service: No Current occupational status: disabled Cognitive needs: No Hearing needs: No Vision needs: No Physical Exam Vital Signs: Last Vital Signs Pulse 87 08/03/24 11:04 BP 142/80 H 06/18/25 11:04 Pulse Ox 97 08/03/24 11:04 Oxygen Delivery Method Room Air 08/03/24 11:04 Results AMB Hemoglobin A1c AMB Hemoglobin A1c 7.6 % Last Edit by RYLEE Palmer on 08/03/24 11:26 Results Reviewed Results Reviewed: Laboratory Last Values Glucose (Clinic) 225 mg/dL (60-115) H 08/03/24 11:05 Assessment & Plan Assessment & Plan (1) Diabetes mellitus with hyperglycemia, with long-term current use of insulin: Code(s): E11.65 - Type 2 diabetes mellitus with hyperglycemia; Z79.4 - senior living (current) use of insulin Category: Medical Qualifiers: Diabetes mellitus type: type 2 Qualified Code(s): E11.65 - Type 2 diabetes mellitus with hyperglycemia; Z79.4 - termite technician (current) use of insulin (2) Insulin long-term use: Code(s): Z79.4 - termite technician (current) use of insulin Category: Medical Plan DM-suboptimal control, he plans to restart mounjaro. He can increase his insulin up to 26 units as needed for optimal control He will return in 3 months or sooner as needed Failed dexcom Orders: Orders AMB Hemoglobin A1c Today E11.65 - Type 2 diabetes mellitus with hyperglycemia, Z79.4 - termite technician (current) use of insulin Medications: New FreeStyle Candelario 3 [place] (blood-glucose,livestock agent,cont) As directed 1 ea 0RF NS E11.65 - Type 2 diabetes mellitus with hyperglycemia, Z79.4 - senior living (current) use of insulin FreeStyle Candelario 3 Plus Sensor (blood-glucose sensor) every 15 days 6 ea 3RF NS E11.65 - Type 2 diabetes mellitus with hyperglycemia, Z79.4 - termite technician (current) use of insulin Mounjaro (tirzepatide) 7.5 mg (0.5 mL) subcut QWEEK 6 mL 3RF NS E11.65 - Type 2 diabetes mellitus with hyperglycemia, E66.9 - Obesity, unspecified, Z79.4 - termite technician (current) use of insulin Changed From insulin glargine (Lantus Solostar U-100 Insulin) 48 units (0.48 mL) subcut QPM 45 mL 4RF To insulin glargine (Lantus Solostar U-100 Insulin) 26 units (0.26 mL) subcut QPM 45 mL 4RF Discontinued Dexcom G6 Transmitter (blood-glucose transmitter) Discontinued Reason: Doctor's Order As directed 1 ea 0RF NS E11.65 - Type 2 diabetes mellitus with hyperglycemia, Z79.4 - termite technician (current) use of insulin Coding Level of Care Code Est Pt Level 4 (02901) Diagnoses Type 2 diabetes mellitus with hyperglycemia, with long-term current use of insulin E11.65; Z79.4 Diabetes mellitus type: type 2 Insulin long-term use Z79.4
[2024-08-03 11:04] VITALS: BP 142/80; PULSE 87; O2SAT 97
[2024-08-03 11:10] LABS: Glucose, Whole Blood 225 mg/dL (60-115)
--- OUTSIDE RECORDS SUMMARY | 2024-08-03 12:36 | XMS_ITS | Continuity of Care Document ---
Author Name Prosper Aldridge Address [address] [place] [address] Organization Unknown Address [address] [place] [id number] Medications No known medications Problems No known problems
== END 2024-08-03 11:25 | disposition home or self-care (01) ==
LOC: HO.ENCR 10:56
PROVIDERS: PCP Internal Medicine; Visit Provider Internal Medicine
DX: E11.65 Type 2 diabetes mellitus with hyperglycemia (principal); Z79.4 Long term (current) use of insulin

== ENCOUNTER → 2024-08-03 10:55 | Outpatient (BNVA) | payer OTHER, SELFPAY | PROVIDERS: PCP Internal Medicine; Visit Provider Internal Medicine | DX: E11.65 Type 2 diabetes mellitus with hyperglycemia (principal); E66.9 Obesity, unspecified; Z79.4 Long term (current) use of insulin | CPT/HCPCS: 82947; 83036; 99212 ==

== ENCOUNTER 2024-08-09 06:19 | Outpatient (REF) | payer OTHER, SELFPAY | END 2024-08-09 06:20 | disposition home or self-care (01) | LOC: CF 06:19 | PROVIDERS: Visit Provider Anesthesiology | DX: Z13.89 Encounter for screening for other disorder (principal) ==

== ENCOUNTER → 2024-09-16 20:00 | Outpatient (REF) | payer OTHER, SELFPAY ==
--- OUTSIDE RECORDS SUMMARY | 2024-09-16 20:24 | XMS_ITS ---
Author Name [facility], [facility] Address [address] [place] [address] Phone [phone] Organization [facility], NA DOCUMENT DISCLAIMER Multiple document versions may exist, please be sure you review the latest version. The information in the [facility] Continuity of Care Document represents a summary of certain health and medical information. It may not contain the complete medical history for the patient and should be independently verified. The represented time in the document is Eastern Time. PROBLEMS Problem Code Status Onset Date Unspecified protein-calorie malnutrition E46 Active July 26, 2024 Hypotension, unspecified I95.9 Active May Allergy, unspecified, [...] of insulin Z79.4 Active June 09, 2024 correction (current) use of aspirin Z79.82 Active June 09, 2024 Long-term (current) use of i njectable non-insulin antidiabetic drugs Z79.85 Active June 09, 2024 Acquired absence of other right toe(s) Z89.421 Ac tive June 09, 2024 Dependence on renal dialysis Z99.2 Active June 09, 2024 Dependence on wheelchair Z99.3 Active Apr 2024 Secondary hyperparathyroidism of renal origin N25.81 [...] antidiabetic drugs Z79.85 Active March 11, 2024 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 Z79.82 Active March 11, 2024 correction (current) use of insulin Z79.4 Active March [...] 2024 End stage renal disease N18.6 Active 2024 ALLERGIES AND ADVERSE REACTIONS No Known [...] June 16, 2024 June 15, 2025 Active Iron Sucrose (Venofer) Self Administer at Home During Dialysis, 1X Week 50 mg Intravenous - push July 08, 2024 June 30, 2025 Active Mircera Post Dialysis, Once 75 mcg Subcutaneous August 25, 2024 Discontinued Home Medications Medication Instructions Dosage [...] 1 capsule ORAL March 14, 2024 Active furosemide 80 mg Take once a day 1 tablet ORAL Benjamin [id number] Active isosorbide mononitrate 30 mg once a [...] unit SUBCUTANEOUS March 14, 2024 Active omega 5-dcb-tzk-fish oil 1,000 (120-180) mg Take by mouth [...] 1/2 mg SUBCUTANEOUS March 14, 2024 Active ergocalciferol (vitamin D2) 1,250 mcg (50,000 unit) Take by mouth once a week as directed 1 capsule ORAL March 18, 2024 September 15, 2024 Discontinued VITAL SIGNS Post-Treatment Vital Signs Vital Sign Value Date / Time Blood Pressure-sitting 160/97 mmHg September 12:20 PM Temperature 98.6 deg. F September 16, 2024 12:20 PM Weight Vital Sign Value Date / Time Estimated Dry Weight 115 kg September 12 11:59 PM Post-Dialysis 115.4 kg September 16, 2024 12:20 PM Other Other Value Date / Time Height 188 cm June 09, 2024 1 2:00 AM Body Mass Index 32.25 kg/m2 September 02, 2024 11 :51 AM LAB RESULTS Hematology Result Type Result Value Relevant Referen ce Range Interpretation Date TIBC (Calc) 204 mcg/dL 185 - 515 mcg/dL - 2024 Transferrin Sat. (Calc) 12 % 20 - 55 % Low March 21 UIBC/TIBC 180 mcg/dL 155 - 355 mcg/dL - March 21, 2024 Ferritin 272 ng/mL 22 - 322 ng/mL - March UIBC/TIBC 165 mcg/dL 155 - 355 mcg/dL - April TIBC (Calc) 233 mcg/dL 185 - 515 mcg/dL - April Transferrin Sat. (Calc) 29 % 20 - 55 % - April 19, 2024 Ferritin 415 ng/mL 22 - 322 ng/mL High April 19, 2024 Ferritin 1253 ng/mL 22 - 322 ng/mL High May 17, 2024 TIBC (Calc) 158 mcg/dL 185 - 515 mcg/dL Low May Platelets 362 1000/mcL 130 - 400 1000/mcL - Apri l 2024 Transferrin Sat. (Calc) 19 % 20 - 55 % Low May 17, 2024 UIBC/TIBC 128 mcg/dL 155 - 355 mcg/dL Low May Neutrophils 80.0 % 40.0 - 75.0 % High May 17, 2024 WBC (No Diff) 12.70 1000/mcL 4.80 - 10.80 1000/mcL High May 17, 2024 Platelets 401 1000/mcL 130 - 400 1000/mcL High June 16, 2024 WBC (No Diff) 8.48 1000/mcL 4.80 - 10.80 1000/mcL - June 16, 2024 UIBC/TIBC 179 mcg/dL 155 - 355 mcg/dL - June 16, 2024 TIBC (Calc) 252 mcg/dL 185 - 515 mcg/dL - June 16, 2024 Transferrin Sat. (Calc) 29 % 20 - 55 % - June 16, 2024 Ferritin 347 ng/mL 22 - 322 ng/mL High June 16 Neutrophils 71.7 % 40.0 - 75.0 % - June 16 Hemoglobin x 3 30.3 % 42.0 - 54.0 % Low July 07, 2024 Ferritin 380 ng/mL 22 - 322 ng/mL High July 20, TIBC (Calc) 248 mcg/dL 185 - 515 mcg/dL - July Transferrin Sat. (Calc) 29 % 20 - 55 % - July 20, 2024 Iron 71 mcg/dL 45 - 160 mcg/dL - July 20, 2024 UIBC/TIBC 177 mcg/dL 155 - 355 mcg/dL - July 20, 2024 Platelets 290 1000/mcL 130 - 400 1000/mcL - July 20, 2024 Neutrophils 72.5 % 40.0 - 75.0 % - July 20, Lymphocytes 15.6 % 19.0 - 48.0 % Low July 20 Monocytes 4.9 % 3.0 - 10.0 % - July 20 Eosinophil 5.5 % 0.0 - 7.0 % - July 20, 2024 Basophils 0.6 % 0.0 - 1.5 % - July 20, 2024 MCH 28.2 pg 27.0 - 31.0 pg - July 20, MCHC 30.9 g/dL 30.0 - 36.0 g/dL - July 20, 2024 RDW 13.9 % 11.5 - 14.5 % - July 20 25 ROBI 1.0 % 0.0 - 4.0 % - July 20, 2024 WBC (No Diff) 9.37 1000/mcL 4.80 - 10.80 1000/mcL - July 20, 2024 Hemoglobin x 3 30.9 % 42.0 - 54.0 % Low July Platelets 247 1000/mcL 130 - 400 1000/mcL - August 16, 2024 Transferrin Sat. (Calc) 17 % 20 - 55 % Low August 16, 2024 Iron 39 mcg/dL 45 - 160 mcg/dL Low August 16, 2024 UIBC/TIBC 188 mcg/dL 155 - 355 mcg/dL - August 16, 2024 TIBC (Calc) 227 mcg/dL 185 - 515 mcg/dL - August Ferritin 394 ng/mL 22 - 322 ng/mL High August 16 Neutrophils 72.4 % 40.0 - 75.0 % - August 16, 025 Lymphocytes 14.0 % 19.0 - 48.0 % Low August 16 Monocytes 5.4 % 3.0 - 10.0 % - August 16 Eosinophil 5.9 % 0.0 - 7.0 % - August 16, 2024 Basophils 1.1 % 0.0 - 1.5 % - August 16, 2024 MCH 29.1 pg 27.0 - 31.0 pg - August 16, 025 MCHC 31.7 g/dL 30.0 - 36.0 g/dL - August 16, 2024 RDW 13.8 % 11.5 - 14.5 % - August 16 WBC (No Diff) 7.23 1000/mcL 4.80 - 10.80 1000/mcL - August 16, 2024 Hemoglobin x 3 30.6 % 42.0 - 54.0 % Low August ROBI 1.2 % 0.0 - 4.0 % - August 16, 2024 Metabolic/Renal Result Type Result Value Relevant Reference Range Interpre tation Date Hemoglobin A1c 6.5 % 4.8 - 5.9 % High April 19, 2024 Hemoglobin A1c 7.6 % 4.8 - 5.9 % High May 17, 2024 Hemoglobin A1c 6.8 % 4.8 - 5.9 % High June 16, 025 URR, Calc 56 % 65 - 80 % Low July 08, 2024 BUN, Post 24 mg/dL 6 - 19 mg/dL High July 08, 2024 BUN 54 mg/dL 6 - 19 mg/dL High July 08, 2024 Bicarbonate 19 mEq/L 22 - 29 mEq/L Low July 20 Creatinine, Serum 8.09 mg/dL 0.60 - 1.30 mg/dL High July 20, 2024 BUN/Creat Ratio 8.8 10.0 - 20.0 Low July 20, 2024 BUN, Post 40 mg/dL 6 - 19 mg/dL High July 20 BUN 71 mg/dL 6 - 19 mg/dL High July 20 Sodium 137 mEq/L 136 - 145 mEq/L - July 20, 2024 Potassium 4.9 mEq/L 3.5 - 5.1 mEq/L - July 20, 2024 Chloride 102 mEq/L 96 - 108 mEq/L - July 20, 025 URR, Calc 44 % 65 - 80 % Low July 20, 2024 Chloride 103 mEq/L 96 - 108 mEq/L - August 16, Bicarbonate 21 mEq/L 22 - 29 mEq/L Low August 16 Creatinine, Serum 8.87 mg/dL 0.60 - 1.30 mg/dL High August 16, 2024 BUN/Creat Ratio 9.2 10.0 - 20.0 Low August 16, 2024 Sodium 141 mEq/L 136 - 145 mEq/L - August 16, 2024 Potassium 4.4 mEq/L 3.5 - 5.1 mEq/L - August 16, 2024 BUN 82 mg/dL 6 - 19 mg/dL High August 16 BUN, Post 44 mg/dL 6 - 19 mg/dL High August 16 URR, Calc 46 % 65 - 80 % Low August 16, 2024 HD Adequacy Result Type Result Value Relevant Referen ce Range Interpretation Date wstdKt/V without residual 2.4 No Reference Range Provided - July 08, 2024 Simple Kt/V (Home HD Only) 0.82 No Reference Range Provided Normal July 08, 2024 wstdKt/V, residual 0.6 No Reference Range Provided - July 08, 2024 spKt/V Daugirdas II (HHD) 0.88 No Reference Range Provided Normal July 08, 2024 wstdKt/V 3.0 No Reference Ran ge Provided - July 08, 2024 wstdKt/V, residual 0.6 No Reference Range Provided - July 20, 2024 spKt/V Daugirdas II (HHD) 0.64 No Reference Range Provided Normal July 20, 2024 Simple Kt/V (Home HD Only) 0.58 No Reference Range Provided Normal July 20, 2024 wstdKt/V 2.5 No Reference Ran ge Provided - July 20, 2024 wstdKt/V without residual 1.9 No Reference Range Provided - July 20, 2024 wstdKt/V without residual 2.0 No Reference Range Provided - August 16, 2024 Simple Kt/V (Home HD Only) 0.62 No Reference Range Provided Normal August 16, 2024 spKt/V Daugirdas II (HHD) 0.66 No Reference Range Provided Normal August 16, 2024 wstdKt/V, residual 0.0 No Reference Range Provided - August 16, 2024 wstdKt/V 2.0 No Reference Ran ge Provided - August 16, 2024 Bone/Mineral Result Type Result Value Relevant Referen ce Range Interpretation Date Vitamin D 25 Hydroxy 14.2 ng/mL 30.0 - 100.0 ng/mL Low March 14, 2024 PTH-Intact, Plasma 473 pg/mL 16 - 80 pg/mL High Feb ruary 2024 PTH-Intact, Plasma 569 pg/mL 16 - 80 pg/mL High Mar ch 2024 PTH-Intact, Plasma 477 pg/mL 16 - 80 pg/mL High Mar ch 2024 PTH-Intact, Plasma 390 pg/mL 16 - 80 pg/mL High Apr il 2024 Magnesium 2.0 mg/dL 1.6 - 2.6 mg/dL - June 16 025 PTH-Intact, Plasma 609 pg/mL 16 - 80 pg/mL High June 16, 2024 Vitamin D 25 Hydroxy 37.7 ng/mL 30.0 - 100.0 ng/mL - June 16, 2024 Corrected Ca x P Product 49 0 - 54 - July 20, 2024 Ca x P Product 48 0 - 54 - July 20, 025 Phosphorus 5.8 mg/dL 2.6 - 4.5 mg/dL High July 20, 2024 Calcium, Total 8.3 mg/dL 8.4 - 10.2 mg/dL Low July 20, 2024 PTH-Intact, Plasma 562 pg/mL 16 - 80 pg/mL High Dhiraj 2024 Calcium, Total 8.2 mg/dL 8.4 - 10.2 mg/dL Low August 16, 2024 Phosphorus 7.3 mg/dL 2.6 - 4.5 mg/dL High August 16, 2024 Corrected Ca x P Product 61 0 - 54 High August 16, 2024 Ca x P Product 60 0 - 54 High August 16 025 PTH-Intact, Plasma 457 pg/mL 16 - 80 pg/mL High Aug Liver/Nutrition Result Type Result Value Relevant Reference Range Interpre tation Date Glucose 212 mg/dL 70 - 100 mg/dL High July 20, 2 025 Albumin (BCG) 3.8 g/dL 3.5 - 5.2 g/dL - July Glucose 205 mg/dL 70 - 100 mg/dL High August 16 025 Albumin (BCG) 3.9 g/dL 3.5 - 5.2 g/dL - August Lipid Result Type Result Value Relevant Referen ce Range Interpretation Date LDL, Direct 116 mg/dL 0 - 99 mg/dL High April 19, 025 Cholesterol, Total 179 mg/dL 0 - [...] (HBsAg) Negative No Reference Range Provided - August 16, 2024 Microbiology-Culture, Blood Result Type Result [...] NxStage Hemodialysis Data Element Value Order Date/Time September 12, 2024 Frequency 4X Week Treatment Days Katjari Dialyzer/Cartridge CAR 172 Therapy Fluid (dialysate) 2.0 K 45 Lacta te Estimated Treatment Time 180 min Volume per Treatment (Liters) 50 L Dialysate Flow Rate 17 L/hr Maximum Flow Fraction (%) 200% Maximum Ultrafiltration Rate 10 ml/Kg/hr Blood Flow Rate (mL/min) 400 mL/min Estimated Dry Weight 115 kg Dialysis Access Hemodialysis-CV Cath eter-Tunneled, Chest, Right Subclavian IMMUNIZATIONS Vaccine Date Dose Route Status HEPLISAV-B July 13, 2024 20.0 mcg Intramuscular Completed TRANSPLANT WAITLIST STATUS No Information on Transplant Waitlist Status ADVANCE DIRECTIVES Directive Description Ordered By Effective Date Resuscitation status Full Code Cole Collazo At hreya Jun 10, 2024 DIALYSIS TREATMENTS NxStage-HHD Date Pre-Treatment Vitals Post-Treatment Vitals Durat ion(hr) Exchanges BFR(mL/min) Cartridge Type Dialysate Dialysis Access Meds-entered by patient September 13, 2024 Weight 115.9 kg Weight 114.7 kg 2:56 1 of 8 400 CAR-172 2K 45 Lactate Blood Pressure-standing 187/103 mmHg Blood Pressure-sitting 140/82 mmHg 2 of 8 400 Temperature 97.7 deg. F Temperature 96.6 deg. F 3 of 8 40 0 - - - - 4 of 8 400 - - - - 5 of 8 400 - - - - 6 of 8 400 - - - - 7 of 8 400 - - - - 8 of 8 - September 15, 2024 Weight 117.4 kg Weight 115.5 kg 2:35 1 of 8 400 CAR-172 2K 45 Lactate Hemodialysis-CV Catheter-Tunneled, Chest, Right Subclavian Heparin 0 Blood Pressure-standing 197/103 mmHg Blood Pressure-sitting 126/84 mmHg 2 of 8 400 Temperature 95.5 deg. F Temperature 98.2 deg. F 3 of 8 40 0 - - - - 4 of 8 400 - - - - 5 of 8 - - - - - 6 of 8 400 - - - - 7 of 8 400 - - - - 8 of 8 400 September 16, 2024 - - Weight 115.4 kg 2:56 1 of 5 400 CAR-172 2K 45 Lactate Hemodialysis-CV Catheter-Tunneled, Chest, Right Subclavian Heparin 0 - - Blood Pressure-sitting 160/97 mmHg 2 of 5 400 - - Temperature 98.6 deg. F 3 of 5 391 - - - - 4 of 5 - - - - - 5 of 5 -
--- OUTSIDE RECORDS SUMMARY | 2024-09-16 20:24 | XMS_ITS | Continuity of Care Document ---
Author Name Prosper Aldridge Address [address] [place] [id number] Organization Unknown Address [address] [place] [id number] Medications No known medications Problems No known problems
--- OUTSIDE RECORDS SUMMARY | 2024-09-16 20:24 | XMS_ITS | Clinical Summary ---
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 Name Role Phone Unavailable Primary Care Provider Unavailabl e Surgical History Surgery Date Site/Laterality Comments OTHER SURGICAL HISTORY 11/06/2016 Right PROCEDURE: ---- OTHER ----; COMMENT: 4 toe amp right foot BYPASS GRAFT PROCEDURE: HI AMPUTATION TOE METATARSOPHALANGEAL JOINT; COMMENT: rt foot Medical History Medical History Date Comments MRSA infection 04/27/2018 DX:MRSA infectio n; COMMENT: Recurrent boils Osteomyelitis ([facility] V24, [facility] V28) 11/17/2018 DX:Osteomyelitis ([facility]); COMM ENT: From right diabetic foot infection Essential hypertension 10/16/2017 DX:Essent ial hypertension PAD (peripheral artery disea se) ([facility] V24) 04/21/2018 DX:PAD (peripheral artery di sease) ([facility]) DM (diabetes mellitus), type 2, uncontrolled, periph [...] due to t ype 2 diabetes mellitus ([facility] V24, [facility] V28) 04/21/2018 DX:Ulcer of right foot due t o type 2 diabetes mellitus ([facility]) Hyperlipidemia 05/25/2019 DX:Hyperlipidemi a 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 [facility] Polysomnogram treatment study. Da* Tobacco use disorder 10/16/2017 DX:Tobacco use disorder Moderate episode of recurren t major depressive disorder (CMS/HCC V24, CMS/HCC V28) 11/12/2017 DX:Moderate episode of recur rent major depressive disorder ([facility]) Fibromyalgia 01/10/2019 DX:Fibromyalgia; COMMENT: [place] with [place] [...] Cancer Screening: Stool Based Tests (FOBT/FIT) 01/15/2022 HIV Screening 01/15/2022 Hepatitis C Screening 01/15/2022 Social Influencers of Health Screening 01/15/2022 Diabetes: Annual Urine Albumin-Creatinine Ratio (uACR) 02/01/2022 Diabetes: Blood Sugar Contro l Test (HGBA1C) 02/01/2022 Hypertension/CHF/CAD Annual BMP Blood Test 02/01/2022 COVID-19 Vaccine (1 - 2023-2 5 season) 2023 Depression Screening 02/17/2024 Influenza Vaccine (#1) 2024 , 03/16/2019, 12/01/2017 DTaP,Tdap,and Td Vaccines (2 - [...] on patient's age to complete this topic Insurance [place]ICA[place] - [place]
--- OUTSIDE RECORDS SUMMARY | 2024-09-16 20:24 | XMS_ITS ---
Author Organization [facility] Address [address] [place] [address] Care Team Providers Care Freedom Of Information Officer Name Role Phone Riya Olmos MD Primary Care Provider Transplant Episode Kidney Candidate [facility] ([place], [place]) [facility] waitlisted on 09/01/2024 Marked as Inactive on 09/01/2024 Reason: Evaluation Incomplete Kidney CoordinatorAnabell Arana RN Fax: N/A Email: N/A Scores Score Value Updated Exceptions/Reas ons CPRA 0 09/05/2024 EPTS (Calc) 59 09/16/2024 [place] Organ Diagnosis Organ Primary Contributory Kidney Diabetes Mellitus - Type II Care Team Name Role Phone Fax Email Anabell Arana RN Kidney Coordinator [phone] N/A N/A Riya Olmos MD Academic Primary Care Attending [phone] N/A N/A Cole Del Valle Referring Physician [phone] N/A Events Pre-Transplant Referred: 03/02/2024 Evaluation began: 04/07/2024 Committee: 08/24/2024 UNOS qualified: 03/03/2024 Center waitlisted: 09/01/2024 Dialysis History Dialysis History Start End Type Comments Center 03/03/2024 Home Hemodialysis M, Tu, Th, F [facility] Dialysis ([facility]) Dialysis Center Information Center Phone Fax Address [facility] Dialysi s ([facility]) [phone] [address] [facility] [address]
== END ==
LOC: HO.SL 20:00
PROVIDERS: PCP Internal Medicine; Visit Provider Internal Medicine
DX: G47.33 Obstructive sleep apnea (adult) (pediatric) (principal); E66.9 Obesity, unspecified
CPT/HCPCS: 95810

== ENCOUNTER → 2024-09-16 20:21 | Outpatient (BNV) | payer OTHER, SELFPAY | PROVIDERS: PCP Internal Medicine; Visit Provider Internal Medicine | DX: G47.33 Obstructive sleep apnea (adult) (pediatric) (principal) | CPT/HCPCS: 95810 ==

== ENCOUNTER 2024-11-03 13:31 | Outpatient (AMB) | payer OTHER, SELFPAY ==
[2024-11-03 13:31] VITALS: BP 128/72
--- NOTE | 2024-11-03 13:31 | HO.NEPHOV_ITS ---
Vital Signs 11/03/24 13:31 Height 6 ft 2 in BP 128/72 Blood Pressure Location Lt brachial Position Sitting Intake Visit Reasons: F/U-Conf w/daughter Level Vial Sealer Required: Yes Level Vial Sealer Name: Ralph Campa Accompanied by: Spouse Allergies No Known Allergies Allergy (Verified 11/03/24 13:33) [facility] Medical History Diabetic infection of right foot Cellulitis of right foot Intermittent lightheadedness History of CVA with residual deficit Left cervical lymphadenopathy Obesity (BMI 30-39.9) Normocytic normochromic anemia COPD (chronic obstructive pulmonary disease) Smoker unmotivated to quit RODGER (obstructive sleep apnea) Generalized anxiety disorder 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 Essential hypertension Allergic rhinitis Mixed dyslipidemia Amputation, toe, traumatic Vitamin D deficiency Diabetes mellitus with neuropathy Diabetes mellitus with hyperglycemia, with long-term current use of insulin Osteoarthritis Fibromyalgia Spondylosis of cervical spine Surgical History History of foot surgery Family History Father HTN (hypertension) Diabetes Mental health disorder Mother HTN (hypertension) Brother Stroke Social History Household Members: Spouse Housing: House Do you presently have visiting nurse or other home services: No Alcohol intake: never Patient Tobacco Use Status: Former Tobacco user Cigarette Packs Per Day: 1 Cigarettes Per Day: 20.0 Years Smoked: 35 e-Cigarette/Vaping Use: Never Used Second Hand Smoke Exposure: No service: No Current occupational status: disabled Cognitive needs: No Hearing needs: No Vision needs: No Physical Exam Vital Signs: Last Vital Signs BP 128/72 11/03/24 13:31 Results Reviewed Nephrology Results: Renal US 01/21/23 Assessment & Plan Assessment & Plan (1) ESRD on hemodialysis: Code(s): N18.6 - End stage renal disease; Z99.2 - Dependence on renal dialysis Category: Medical Plan see dialysis EMR Coding Level of Care Code Global (42997) Diagnoses ESRD on hemodialysis N18.6; Z99.2
--- OUTSIDE RECORDS SUMMARY | 2024-11-03 15:30 | XMS_ITS | Clinical Summary ---
Author Organization [facility] Address [address] [place] [address] Care Team Providers Care Electronic Integrated Systems Mechanic Name Role Phone Riya Olmos MD Primary [...] Encounters Date Type Department Care Team Description 10/13/2024 2:00 PM EDT Office Visit [facility] Vascular Surgery [address] [place] [id number] Business Analytics Intern: Irma Cornelius MD Bilateral carotid artery stenosis (Primary Dx) 10/13/2024 11:56 AM EDT - 10/13/2024 11:59 PM EDT Hospital Encounter [facility] Vascular Lab [address] [place] [phone] 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, with long-term current use of insulin (HCC) Discharge Disposition: Home or Self Care (01) 09/22/2024 Orders Only [facility] Specialty Surgical Services at [address] [address] Carlos Reed NP 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, with long-term current use of insulin (HCC) (Primary Dx) 09/21/2024 Telephone [facility] Vascular Surgery [address] [place] [address] [phone] Business Analytics Intern: Dee Boles Telephone Intake, Staff PAC Appt Request - New 09/19/2024 Telephone [facility] Transplant Department [address] [place] [phone] Anabell Arana RN 09/16/2024 Orders Only [facility] Transplant Department [address] [place] [phone] Anabell Arana RN Pre-transplant evaluation for kidney transplant (Primary Dx); 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, with long-term current use of insulin (HCC); Hypertension secondary to other renal disorders; Mixed hyperlipidemia; CVA, old, hemiparesis (HCC) 09/14/2024 2:02 PM EDT - 09/14/2024 11:59 PM EDT Hospital Encounter [facility] Vascular Lab [address] [place] [address] Saurabh Heck MD Pre-transplant evaluation for kidney transplant; 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, with long-term current use of insulin (HCC); History of CVA (cerebrovascular accident); Hypertension secondary to other renal disorders; Mixed hyperlipidemia Discharge Disposition: Home or Self Care (01) 09/01/2024 Telephone [facility] Transplant Department [address] [place] [address] Anabell Arana RN 09/01/2024 Orders Only [facility] Transplant Department [address] [place] [phone] Anabell Arana RN Pre-transplant evaluation for kidney transplant (Primary Dx); 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, with long-term current use of insulin (HCC); History of CVA (cerebrovascular accident); Hypertension secondary to other renal disorders; Mixed hyperlipidemia 09/01/2024 Documentation [facility] Transplant Department [address] [place] [address] Sharmila Mathis, RN ABO Dual Validation 09/01/2024 Documentation [facility] Transplant Department [address] [place] [address] Anabell Arana RN ABO Dual Validation 08/24/2024 Orders Only [facility] Transplant Department [address] [place] [phone] Saurabh Hekc MD Pre-transplant evaluation for kidney transplant (Primary Dx); CVA, old, hemiparesis (HCC) 08/23/2024 Abstract [facility] Transplant Department [address] [place] [address] Anabell Arana RN 08/15/2024 Telephone [facility] Transplant Department [address] [place] [address] Anabell Arana RN 08/15/2024 Orders Only [facility] Transplant Department [address] [place] [address] Anabell Arana RN Pre-transplant evaluation for kidney transplant (Primary Dx); ESRD (end stage renal disease) (HCC) 08/10/2024 Telephone [facility] Transplant Department [address] [place] [address] 119[address] Anabell Arana RN from Last 3 Months Immunizations Immunization Administration Dates Next Due Influenza, Unspecified 12/18/2023 Pneumococcal Polysaccharide Vaccine, 23 Valent 0 10/02/2020 Social History Tobacco Use Types Packs/Day Years Used Date Smoking Tobacco: Some Days Cigarettes Smokeless Tobacco: Current Tobacco Cessation:Ready to Q uit: Not Asked; Counseling Given: Not Answered Comments:Maybe 1 to 2 a day Sex and Gender Information Value Date Recorded Sex Assigned at Male 04/07/2024 7:39 AM EST Legal Sex Male 3:14 PM EST Gender Identity Not on file Sexual Orientation Not on file Last Filed Vital Signs Vital Sign Reading Time Taken Comments Blood Pressure 154/84 10/13/2024 2:01 PM EDT Pulse 84 10/13/2024 2:01 PM EDT Temperature 36.6 C (97.9 F) 10/13/2024 2:01 PM EDT Respiratory Rate 18 10/13/2024 2:01 PM EDT Oxygen Saturation 98% 10/13/2024 2:01 PM EDT Inhaled Oxygen Concentration - - Weight 118.8 kg (262 lb) 10/13/2024 2:01 PM EDT Height 188 cm (6' 2 ) 10/13/2024 2:01 PM EDT Body Mass Index 33.64 10/13/2024 2:01 PM EDT Plan of Treatment Upcoming Encounters Date Type Department Care Team (Late st Contact Info) Description 04/06/2025 11:20 AM EST Follow-Up [facility] Renal Transplant [address] [place] [address] Saurabh Heck MD [address] [place] [address] 10/13/2025 1:45 PM EDT Appointment [facility] V[facility] Lab [address] [place] [address] 10/13/2025 3:00 PM EDT Follow-Up [facility] Building Vascular Surgery [address] [place] [address] Business Analytics Intern: Daphnie Camarena NP [address] [place] [address] Health Maintenance Due Date Last Done Comments 25 Hydroxy / Vitamin D 1968 Basic Metabolic Panel 1968 CKD: Referral to Nutrition 1968 Cologuard 1968 Colon Cancer Screening 1968 Colonoscopy 1968 FOBT / Fit Test 1968 Hemoglobin A1C 1968 PTH 1968 Sigmoidoscopy 1968 Ophthalmology Exam [address] Lung Cancer Screening (Baseline) 2018 Zoster Vaccines (1 of 2) 2018 Alcohol/Substance Use Screening 02/17/2024 Depression Screening and Follow-Up 02/17/2024 Social Drivers of Health [place] ual Screening 02/17/2024 COVID-19 Vaccine (3 - 2024-2 6 season) 2024 07/22/2020, 07/01/2020 Influenza Vaccine (#1) 2024 , 12/18/2023, 11/22/2022, Additional history exists Hemoglobin 04/07/2025 04/07/2024 Phosphorus 04/07/2025 04/07/2024 DTaP,Tdap,and Td Vaccines (2 - Td or Tdap) 07/27/2028 07/27/2018 RSV Vaccine (60+ years old a nd patients) (1 - 1-dose 75+ series) 10/11/2043 CKD: Referral to Nephrology Completed 04/07/2024 HIV Screening Completed 04/07/2024 Hepatitis C Screening Completed 04/07/2024 Hepatitis B Vaccines Completed 07/13/2024, 03/21/19 Pneumococcal Vaccine: 50+ Years Completed 07/13/2024, 10/02/2020, 12/01/2017 Procedures * Due to [place] Local[employer] law, this organization might not be sharing negative HIV tests. 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 * Ankle/Brachial Index and Arterial Waveform Analysis (10/13/2024 1:44 PM EDT) Pressure Posterior Tibial Arterial Right 123 mmHg Index Posterior Tibial Arterial Right 0.77 Pressure Dorsalis Pedis Arterial Right 127 mmHg Index Dorsalis Pedis Arterial Right 0.79 Pressure Toe 5 Right 74 mmHg Index Toe 5 Right 0.46 Pressure Brachial Left 160 mmHg Pressure Posterior Tibial Arterial Left 109 mmHg Index Posterior Tibial Arterial Left 0.68 Pressure Dorsalis Pedis Arterial Left 137 mmHg Index Dorsalis Pedis Arterial Left 0.86 Pressure 1 Toe Left 100 mmHg Index Toe 1 Left 0.63 Anatomical Region Laterality Modality Vascular Ultrasound Narrative 10/14/2024 2:02 PM EDT The right ankle/brachial index and abnormal Doppler waveforms indicated moderate arterial insufficiency at rest. The right toe/brachial index and absolute toe pressure were consistent with peripheral arterial disease when correlated with relevant clinical symptoms. The left ankle/brachial index and abnormal Doppler waveforms indicated mild arterial insufficiency at rest. The left toe/brachial index and absolute toe pressure were consistent with peripheral arterial disease when correlated with relevant clinical symptoms. No previous study to compare. RAJ Right Lower Extremity: Doppler waveform: abnormal Severity of Arterial Insufficiency by RAJ: moderate Left Lower Extremity: Doppler waveform: abnormal Severity of Arterial Insufficiency by RAJ: mild Tech Comments PT reported right arm fistula Diabetes Right toe amp (1,2,3 & 4) MJS/JF us Carlos Reed NP CV VASCULAR PROCEDURES Final Re sult * CAROTID DUPLEX SCAN BILATERAL (09/14/2024 3:06 PM EDT) PSV Bulb Arterial Left 223 cm/s EDV Bulb Arterial Left 42.3 cm/s PSV Common Carotid Distal Arterial Left 183 cm/s EDV Common Carotid Distal Arterial Left 34.1 cm/s PSV Common Carotid Proximal Arterial Left 121 cm/s EDV Common Carotid Proximal Arterial Left 24.3 cm/s PSV Internal Carotid Distal Arterial Left 137 cm/s EDV Internal Carotid Distal Arterial Left 47.6 cm/s PSV Internal Carotid Proximal Arterial Left 256 cm/s EDV Internal Carotid Proximal Arterial Left 45.1 cm/s PSV Vertebral Arterial Left 85.1 cm/s PSV Common Carotid Distal Arterial Right 172 cm/s EDV Common Carotid Distal Arterial Right 25.2 cm/s PSV Common Carotid Proximal Arterial Right 95.7 cm/s EDV Common Carotid Proximal Arterial Right 11.2 cm/s PSV Internal Carotid Distal Arterial Right 76.8 cm/s EDV Internal Carotid Distal Arterial Right 29 cm/s PSV Internal Carotid Middle Arterial Right 122 cm/s EDV Internal Carotid Middle Arterial Right 42.5 cm/s PSV Internal Carotid Proximal Arterial Right 246.00 cm/s EDV Internal Carotid Proximal Arterial Right 44.50 cm/s PSV Vertebral Arterial Right 10.1 cm/s PSV External Carotid Arterial Left 107 cm/s PSV External Carotid Arterial Right 212 cm/s Ratio Prox Internal Carotid Right 1.43 ICAMidRI 0.71 ICADistRI 0.45 BLUBLRI 1.22 Ratio Prox Internal Carotid Left 1.40 IACDISTRIL 0.75 Anatomical Region Laterality Modality Carotid Artery Ultrasound Narrative 09/15/2024 11:51 AM EDT The right carotid duplex scan was abnormal: geiger scale imaging and spectral Doppler velocities were consistent with 50-69% stenosis of the right internal carotid artery. A >50% stenosis was identified at the origin of the right external carotid artery. Bidirectional flow was identified in the right vertebral artery, indicating a more proximal hemodynamically significant stenosis of the innominate artery or right subclavian artery. The left carotid duplex scan was abnormal: geiger scale imaging and spectral Doppler velocities were consistent with 50-69% stenosis of the left internal carotid artery. and The left vertebral flow was antegrade. This was a technically challenging test due to body habitus. Right Carotid Right Internal Carotid Artery Proximal: 50-69% stenosis; moderate, irregular and heterogeneous plaque Right External Carotid Artery: >50% stenosis Right Vertebral Artery: bidirectional flow Left Carotid Left Carotid Bulb: 50-69% stenosis Left Internal Carotid Artery Proximal: 50-69% stenosis; moderate, irregular, heterogeneous, mild calcific plaque Left Vertebral Artery: flow direction: antegrade us Saurabh Heck MD CV VASCULAR PROCEDURES Jaylene l Result * (ABNORMAL) CBC Auto Differential (04/07/2024 11:40 AM EST) WBC 12.9(H) 3.8 - 10.8 10*3/uL 04/07/2024 12:05 PM EST [facility] RBC 3.83(L) 4.20 - 5.80 10*6/uL 04/07/2024 12:05 PM EST [facility] Hemoglobin 10.4(L) 13.2 - 17.1 g/dL 04/07/2024 12:05 PM EST [facility] Hematocrit 33.9(L) 38.5 - 50.0 % 04/07/2024 12:05 PM EST [facility] MCV 88.5 80.0 - 100.0 fL 04/07/2024 12:05 PM EST [facility] MCH 27.2 27.0 - 33.0 pg 04/07/2024 12:05 PM EST [facility] MCHC 30.7(L) 32.0 - 36.0 g/dL 04/07/2024 12:05 PM EST [facility] RDW 14.1 11.0 - 15.0 % 04/07/2024 12:05 PM EST [facility] Platelets 384 140 - 400 10*3/uL 04/07/2024 12:05 PM EST [facility] MPV 9.9 7.5 - 12.5 fL 04/07/2024 12:05 PM EST [facility] Neutrophil % 70.4 % 04/07/2024 12:05 PM EST [facility] Immature Grans [...] % 1.1 % 04/07/2024 12:05 PM EST [facility] Neutrophil # 9.08(H) 1.50 - 7.80 10*3/uL 04/07/2024 12:05 PM EST [email or web address] Immature Grans # 0.09(H) <=0.03 10*3/uL 04/07/2024 12:05 PM EST [facility] Lymphocyte # 2.20 0.85 - 3.90 10*3/uL 04/07/2024 12:05 PM EST [facility] Monocyte # 0.80 0.20 - 0.95 10*3/uL 04/07/2024 12:05 PM EST [facility] Eosinophil # 0.60(H) 0.02 - 0.50 10*3/uL 04/07/2024 12:05 PM EST [email or web address] Basophil # 0.10 0.00 - 0.20 10*3/uL 04/07/2024 12:05 PM EST [email or web address] nRBC % 0.0 /100 WBCs 04/07/2024 12:05 PM EST [facility]ERCool[facility] [email or web address] nRBC # <0.01 <0.01 10*3/uL 04/07/2024 12:05 PM EST [email or web address] Blood Structure of peripheral vein / Unknown Venipuncture / Unknown 04/07/2024 11:40 AM EST 04/07/2024 11:56 AM EST Saurabh Heck MD LAB BLOOD ORDERABLES Final Result [facility] [address] [place] [address], * Hepatitis C Antibody w/Reflex to PCR (04/07/2024 11:40 AM EST) Hepatitis C Antibody NON-REACT EMILIANO NON-REACT EMILIANO 04/07/2024 7:09 PM EST [facility] Comment: HCV antibody was non-reactive. There is no laboratory evidence of HCV infection. In most cases, no further action is required. However, if recent HCV exposure is suspected, a test for HCV RNA (test code 09074) is suggested. For additional information please refer to http://[email or web address] Kh[employer]/faq/TDP51u1 (This link is being provided for informational/ educational purposes only.) Blood Structure of peripheral vein / Unknown Venipuncture / Unknown 04/07/2024 11:40 AM EST 04/07/2024 11:56 AM EST Narrative [facility] - 04/07/2024 7:09 PM EST [facility] Received Date: us Saurabh Heck MD LAB BLOOD ORDERABLES Final Result [facility] [address], [place] [address], [place] [phone] [employer] [facility] [address] [facility], [place] [address], [place] [phone] * Phosphorus (04/07/2024 11:40 AM EST) Phosphorus 4.4 2.5 - 4.5 mg/dL 04/07/2024 12:25 PM EST [facility] Blood Structure of peripheral vein / Unknown Venipuncture / Unknown 04/07/2024 11:40 AM EST 04/07/2024 11:56 AM EST us Saurabh Heck MD LAB BLOOD ORDERABLES Final Result [facility] [address] [place] [address], from Last 3 Months or Most Recently Relevant to Health Maintenance Insurance [facility] [place] [id number] Care Teams Electronic Integrated Systems Mechanic Relationship Specialty Start Date End Date Riya Olmos MD [facility] [place] [address] PCP - General Internal Medicine 06/15/24
--- OUTSIDE RECORDS SUMMARY | 2024-11-03 15:30 | XMS_ITS ---
Author Organization [facility] Address [address] [place] [address] Care Team Providers Care Outside Cutter Hand Name Role Phone Riya Olmos MD Primary Care Provider Transplant Episode Kidney Candidate [facility] ([place], [place]) [facility] waitlisted on 09/01/2024 Marked as Inactive on 09/01/2024 Reason: Evaluation Incomplete Kidney CoordinatorAnabell Arana RN Fax: N/A Email: N/A Scores Score Value Updated Exceptions/Reas ons CPRA 0 09/05/2024 EPTS (Calc) 60 11/03/2024 [place] Organ Diagnosis Organ Primary Contributory Kidney Diabetes Mellitus - Type II Care Team Name Role Phone Fax Email Anabell Arana RN Kidney Coordinator [phone] N/A N/A Riya Olmos MD Academic Primary Care Attending [phone] N/A N/A Cole Del Valle Referring Physician [phone] N/A Events Pre-Transplant Referred: 03/02/2024 Evaluation began: 04/07/2024 Committee: 08/24/2024 UNOS qualified: 03/03/2024 Center waitlisted: 09/01/2024 Dialysis History Dialysis History Start End Type Comments Center 03/03/2024 Home Hemodialysis M, Tu, Th, F [facility] ([facility]) Dialysis Center Information Center Phone Fax Address [facility] ([facility]) [phone] [address] [facility] [address]
--- OUTSIDE RECORDS SUMMARY | 2024-11-03 15:30 | XMS_ITS ---
Author Name [facility], Clinic Address [address] [place] [address] Phone [phone] Organization [facility] e, NA DOCUMENT DISCLAIMER Multiple document versions may exist, please be sure you review the latest version. The information in the [facility] Continuity of Care Document represents a summary of certain health and medical information. It may not contain the complete medical history for the patient and should be independently verified. The represented time in the document is Eastern Time. 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 Active October 25 Unspecified protein-calorie malnutrition E46 Active July 26, 2024 Hypotension, unspecified I95.9 Active Apr 2024 Allergy, unspecified, initial encounter T78.40XA A ctive [...] unspecified J44 .9 Active June 09, 2024 detention (current) use of insulin Z79.4 Active June 09, 2024 detention (current) use of aspirin Z79.82 Active June [...] phosphorus metabolism E83.39 Active June 09, 2024 Type 2 diabetes mellitus wit h diabetic chronic kidney disease E11.22 Active March 03, 2024 End stage renal disease N18.6 Active Phillip garima 2024 ALLERGIES AND ADVERSE REACTIONS No Known Allergies SOCIAL HISTORY Tobacco Use Status Tobacco Type Unknown if ever consumed tobacco - Caregiver Characteristics No Information Available Characteristics of Home environment No Information Available Gender and Sex Information Gender Identity Sexual Orientation Male Heterosexual MEDICATIONS Prescribed Medications for Dialysis Treatments Medication Instructions Dosage Route Start Date End Date Stat Heparin Pork 1,000 Units/mL CatheterLock SelfAdmin Home [...] July 08, 2024 June 30, 2025 Active Heparin Sodium (Porcine) 1,000 Units/mL Catheter Lock Arterial Post Dialysis, Every Treatment 2000 units Arterial Red Port October 31, 2024 October 30, 2025 Discontinued Heparin Sodium (Porcine) 1,000 Units/mL Catheter Lock Arterial Post Dialysis, Once 2000 units Arterial Red Port October 11, 2024 Discontinued Heparin Sodium (Porcine) 1,000 Units/mL Catheter Lock Venous Post Dialysis, Once 2000 units Venous Blue Port October 11, 2024 Discontinued Heparin Sodium (Porcine) 1,000 Units/mL Catheter Lock Venous Post Dialysis, Every Treatment 2000 units Venous Blue Port October 31, 2024 October 30, 2025 Discontinued Heparin Sodium (Porcine) 1,000 Units/mL Systemic Bolus, Every Treatment, Total treatment minutes 210 3000 units Intravenous - push October 31, 2024 October 30, 2025 Discontinued Mircera Self Administer at Home Post Dialysis, Once 50 mcg Subcutaneous October 17, 2024 Discontinued Tuberculin Purified Protein Derivative (Tubersol) Once 0.1 mL Intradermal October 20, 2024 Discontinued Home Medications Medication Instructions Dosage Route Start Date End Date Stat us Aspirin Childrens 81 mg Take by mouth [...] once a day 1 tablet ORAL Benjamin [email or web address] Active isosorbide mononitrate 30 mg once a [...] unit SUBCUTANEOUS March 14, 2024 Active omega 3-cqr-krb-fish oil 1,000 (120-180) mg Take by mouth twice a day 2 capsule ORAL March 14, 2024 Active Plavix 75 mg Take by mouth once a day 1 tablet ORAL October 25, 2024 Active prazosin 1 mg Take by mouth every night at bedtime 1 capsule ORAL March 14, 2024 Active Sevelamer Carbonate Tablet 800 mg Take By Mouth Three times a day With Meals 2 Tablet By Mouth May 30, 2024 May 26, 2025 Active Trulicity 1.5 mg/0.5 mL Inject subcutaneously once a week 1 1/2 mg SUBCUTANEOUS March 14, 2024 Active VITAL SIGNS Post-Treatment Vital Signs Vital Sign Value Date / Time Blood Pressure-sitting 107/71 mmHg November 03, 2024 04:58 AM Temperature 98.1 deg. F November 03 04:58 AM Weight Vital Sign Value Date / Time Estimated Dry Weight 115 kg September 12 11:59 PM Pre-Dialysis 117.6 kg November 03 04:58 AM Post-Dialysis 116.4 kg November 03 04:58 AM Other Other Value Date / Time Height 188 cm October 31 12:00 AM Body Mass Index 32.54 kg/m2 October 28 12:55 PM LAB RESULTS Hematology Result Type Result Value Relevant Referen ce Range Interpretation Date Ferritin 1253 ng/mL 22 - 322 ng/mL High May 17, 2024 TIBC (Calc) 158 mcg/dL 185 - 515 mcg/dL Low May Platelets 362 1000/mcL 130 - 400 1000/mcL - Apri 2024 Transferrin Sat. (Calc) 19 % 20 [...] 40.0 - 75.0 % - June 16 Ferritin 380 ng/mL 22 - 322 ng/mL High July 20, 025 TIBC (Calc) 248 mcg/dL 185 - 515 mcg/dL - July Transferrin Sat. (Calc) 29 % 20 - 55 % - July 20, 2024 UIBC/TIBC 177 mcg/dL 155 - 355 mcg/dL - July 20, 2024 Platelets 290 1000/mcL 130 - 400 1000/mcL - July 20, 2024 Neutrophils 72.5 % 40.0 - 75.0 % - July 20, 025 WBC (No Diff) 9.37 1000/mcL 4.80 - 10.80 1000/mcL - July 20, 2024 Platelets 247 1000/mcL 130 - 400 1000/mcL [...] ng/mL 22 - 322 ng/mL High August 16, 2 025 Neutrophils 72.4 % 40.0 - 75.0 % - August 16 025 Lymphocytes 14.0 % 19.0 - 48.0 % Low August 16, 2 025 Monocytes 5.4 % 3.0 - 10.0 % - August 16 Eosinophil 5.9 % 0.0 - 7.0 % - August 16, 2024 Basophils 1.1 % 0.0 - 1.5 % - August 16, 2024 MCH 29.1 pg 27.0 - 31.0 pg - August 16 MCHC 31.7 g/dL 30.0 - 36.0 g/dL - August 16, 2024 RDW 13.8 % 11.5 - 14.5 % - August 16 WBC (No Diff) 7.23 1000/mcL 4.80 - 10.80 1000/mcL - August 16, 2024 Hemoglobin x 3 30.6 % 42.0 - 54.0 % Low August ROBI 1.2 % 0.0 - 4.0 % - August 16, 2024 TIBC (Calc) 246 mcg/dL 185 - 515 mcg/dL - October 11, 2024 UIBC/TIBC 202 mcg/dL 155 - 355 mcg/dL - September 172024 Transferrin Sat. (Calc) 18 % 20 - 55 % Low October 11, 2024 Iron 44 mcg/dL 45 - 160 mcg/dL Low September Ferritin 285 ng/mL 22 - 322 ng/mL - October 11, 2024 HGB 11.0 g/dL 14.0 - 18.0 g/dL Low September 172024 Hemoglobin x 3 33 % 42.0 - 54.0 % Low October 11, 2024 Platelets 264 1000/mcL 130 - 400 1000/mcL - 2024 MCH 28.9 pg 27.0 - 31.0 pg - October 11, 2024 MCHC 30.3 g/dL 30.0 - 36.0 g/dL - September 172024 RDW 13.7 % 11.5 - 14.5 % - October 11, 2024 WBC (No Diff) 9.86 1000/mcL 4.80 - 10.80 1000/mcL - October 11, 2024 RBC 3.80 mill/mcL 4.70 - 6.10 mill/mcL Low October 11, 2024 HCT 36.2 % 42.0 - 52.0 % Low October 11, 2024 Monocytes 5.4 % 3.0 - 10.0 % - October 11 Eosinophil 5.6 % 0.0 - 7.0 % - October 11 Basophils 1.2 % 0.0 - 1.5 % - October 11 ROBI 1.3 % 0.0 - 4.0 % - October 11 25 Neutrophils 76.2 % 40.0 - 75.0 % High October 11, 2024 Lymphocytes 10.3 % 19.0 - 48.0 % Low October 11, 2024 HGB 10.9 g/dL 14.0 - 18.0 g/dL Low e r 2024 Hemoglobin x 3 32.7 % 42.0 - 54.0 % Low er 2024 Metabolic/Renal Result Type Result Value Relevant Referen ce Range Interpretation Date Hemoglobin A1c 7.6 % 4.8 - 5.9 % High May 17, 2024 Hemoglobin A1c 6.8 % 4.8 - 5.9 % High June 16 Chloride 103 mEq/L 96 - 108 mEq/L - August 16 Bicarbonate 21 mEq/L 22 - 29 mEq/L [...] - 80 % Low August 16, 2024 Hemoglobin A1c 7.8 % 4.8 - 5.9 % High September URR, Calc 49 % 65 - 80 % Low October 11 BUN, Post 35 mg/dL 6 - 19 mg/dL High October 11 BUN 69 mg/dL 6 - 19 mg/dL High October 11 Potassium 4.6 mEq/L 3.5 - 5.1 mEq/L - September Sodium 134 mEq/L 136 - 145 mEq/L Low September Bicarbonate 22 mEq/L 22 - 29 mEq/L - October 11, 2024 Chloride 97 mEq/L 96 - 108 mEq/L - October 11, 2024 BUN/Creat Ratio 9.0 10.0 - 20.0 Low September 172024 Creatinine, Serum 7.64 mg/dL 0.60 - 1.30 mg/dL High October 11, 2024 HD Adequacy Result Type Result Value Relevant Referen ce Range Interpretation Date wstdKt/V without residual 2.0 No Reference Range Provided - August 16, 2024 Simple Kt/V (Home HD Only) 0.62 No Reference Range Provided Normal August 16, 2024 spKt/V Daugirdas II (HHD) 0.66 No Reference Range Provided Normal August 16, 2024 wstdKt/V, residual 0.0 No Reference Range Provided - August 16, 2024 wstdKt/V 2.0 No Reference Ran ge Provided - August 16, 2024 wstdKt/V without residual 2.1 No Reference Range Provided - October 11, 2024 spKt/V Daugirdas II (HHD) 0.74 No Reference Range Provided Normal October 11, 2024 wstdKt/V 2.1 No Reference Ran ge Provided - October 11, 2024 wstdKt/V, residual 0.0 No Reference Range Provided - October 11, 2024 Simple Kt/V (Home HD Only) 0.67 No Reference Range Provided Normal October 11, 2024 Bone/Mineral Result Type Result Value Relevant Referen ce Range Interpretation Date Vitamin D 25 Hydroxy 14.2 ng/mL 30.0 - 100.0 ng/mL Low March 14, 2024 PTH-Intact, Plasma 390 pg/mL 16 - 80 pg/mL High May Magnesium 2.0 mg/dL 1.6 - 2.6 mg/dL - June 16 025 PTH-Intact, Plasma 609 pg/mL 16 - 80 pg/mL High June 16, 2024 Vitamin D 25 Hydroxy 37.7 ng/mL 30.0 - 100.0 ng/mL - June 16, 2024 PTH-Intact, Plasma 562 pg/mL 16 - 80 pg/mL High Jul Calcium, Total 8.2 mg/dL 8.4 - 10.2 mg/dL Low August 16, 2024 Phosphorus 7.3 mg/dL 2.6 - 4.5 mg/dL High August 16, 2024 Corrected Ca x P Product 61 0 - 54 High August 16, 2024 Ca x P Product 60 0 - 54 High August 16 025 PTH-Intact, Plasma 457 pg/mL 16 - 80 pg/mL High Aug Corrected Ca x P Product 61 0 - 54 High October 11, 2024 Magnesium 2.3 mg/dL 1.6 - 2.6 mg/dL - September Vitamin D 25 Hydroxy 31.7 ng/mL 30.0 - 100.0 ng/mL - October 11, 2024 PTH-Intact, Plasma 265 pg/mL 16 - 80 pg/mL High Sep ust 2024 Phosphorus 7.4 mg/dL 2.6 - 4.5 mg/dL High September Calcium, Total 8.2 mg/dL 8.4 - 10.2 mg/dL Low Sepu st 2024 Alkaline Phosphatase 67 U/L 40 - 129 U/L - 2024 Ca x P Product 61 0 - 54 High October 11, 2024 Liver/Nutrition Result Type Result Value Relevant Reference Range Interpre tation Glucose 205 mg/dL 70 - 100 mg/dL High August 16 Albumin (BCG) 3.9 g/dL 3.5 - 5.2 g/dL - August SGOT (AST) 14 U/L 13 - 39 U/L - October 11 Albumin (BCG) 3.9 g/dL 3.5 - 5.2 g/dL - October 11, 2024 SGPT (ALT) 6 U/L 7 - 52 U/L Low October 11 Glucose 223 mg/dL 70 - 100 mg/dL High October 11, 2024 Lipid Result Type Result Value Relevant Referen ce Range Interpretation Date HDL 21 mg/dL No Reference Ran ge Provided - May 17, 2024 LDL, Direct 73 mg/dL 0 - 99 mg/dL - May 17 Cholesterol, Total 129 mg/dL 0 - 199 mg/dL - May Immunochemistry Result Type Result Value Relevant Reference Range Interpre tation HCV s/co ratio 0.05 0.00 - 0.79 - June 16 HCV s/co ratio 0.06 0.00 - 0.79 - September Trace Elements Result Type Result Value Relevant Reference Range Interpre tation Date Aluminum < 5 mcg/L 0 - 10 mcg/L - March 14, 2024 Aluminum 5 mcg/L 0 - 10 mcg/L - October 11 Peritoneal Dialysis Testing Result Type Result Value [...] - 1.8 g/24 hr - March 21 025 Infectious Diseases Result Type Result Value Relevant Referen ce Range Interpretation Date Hep B core Ab Total (anti-HBc) Negative No Reference Range Provided - June 16, 2024 HCV Ab (anti-HCV) Nonreactive No Reference R brie Provided - October 11, 2024 Hep B Surface Ab (anti-HBs) < 10 mIU/mL No Reference Range Provided - October 11, 2024 Hep B Surface Ag (HBsAg) Negative No Reference Range Provided - October 11, 2024 Microbiology-Culture, Blood Result Type Result Value [...] 12, 2024 Frequency 4X Week Treatment Days Isabella [...] Res[facility] status Full [facility] Jun [facility] DIALYSIS TREATMENTS Conventional Hemodialysis Date Pre-Treatment Vitals Post-Treatment Staci ls Duration (hr) BFR (mL/min) Dialysate Dialyzer Dialysis Access Meds Admin [facility] 2024 Weight 120.00 kg Weight 119.10 kg 03:30:00 370 2.0 K, 2.0 Ca, 1.0 Mg, 100 Dextrose (G2201) 180nre Optifl ux Blood Pressure-sitting 176/87 mmHg Blood Pressure-sit ting 155/85 mmHg Blood Pressure-standing 177/104 mmHg Blood Pressure-st anding 140/88 mmHg Heart Rate 88 beats per minute Heart Rate 79 beats per minute Respiratory Rate 19 breaths per minute Respiratory Rate 17 breaths per minute Temperature 96.2 deg. F Temperature 97.0 deg. F NxStage-HHD Date Pre-Treatment Vitals Post-Treatment Vitals Durat ion(hr) Exchanges BFR(mL/min) Cartridge Type Dialysate Dialysis Access Meds-entered by patient [facility] 2024 Weight 119 kg Weight 117 kg 3:14 1 - CAR-172 2K 45 La ctate Blood Pressure-standing 189/92 mmHg Blood Pressure-sitting 1 47/87 mmHg 2 400 - - Temperature 97.9 deg. F 3 400 - - - - 4 of 400 - - - - 5 of 400 - - - - 6 of 400 - - - - 7 of 400 - - - - 8 of 400 - - - - 9 of 400 - - - - 10 of - - - - - 11 November 03, 2024 Weight 117.6 kg Weight 116.4 kg 3:7 1 of 200 CAR-172 2K 45 Lactate Hemodialysis-CV Catheter-Tunneled, Chest, Right Subclavian Heparin 0 Blood Pressure-standing 173/89 mmHg Blood Pressure-sitting 1 07/71 mmHg 2 of 13 - Temperature 97.1 deg. F Temperature 98.1 deg. F 3 of 13 68 - - - - 4 of 13 155 - - - - 5 of 13 100 - - - - 6 of 400 - - - - 7 of 400 - - - - 8 of 400 - - - - 9 of 400 - - - - 10 of 400 - - - - 11 of 13 400 - - - - 12 of 13 400 - - - - 13 of -
== END 2024-11-03 13:52 | disposition home or self-care (01) ==
PROVIDERS: PCP Internal Medicine; Visit Provider Internal Medicine Hypertension Specialist
DX: N18.6 End stage renal disease (principal); Z99.2 Dependence on renal dialysis
CPT/HCPCS: 99024

== ENCOUNTER → 2024-11-03 13:31 | Outpatient (BNVA) | payer OTHER, SELFPAY | PROVIDERS: PCP Internal Medicine; Visit Provider Internal Medicine Hypertension Specialist | DX: E11.22 Type 2 diabetes mellitus with diabetic chronic kidney disease (principal); N18.6 End stage renal disease; Z99.2 Dependence on renal dialysis | CPT/HCPCS: 99212 ==

== ENCOUNTER → 2024-11-08 23:59 | Outpatient (BNV) | payer OTHER, SELFPAY | PROVIDERS: PCP Internal Medicine; Visit Provider Internal Medicine | DX: E11.622 Type 2 diabetes mellitus with other skin ulcer (principal); L97.919 Non-pressure chronic ulcer of unspecified part of right lower leg with unspecified severity; I10 Essential (primary) hypertension | CPT/HCPCS: G0179 ==

== ENCOUNTER → 2024-11-16 23:59 | Outpatient (BNV) | payer OTHER, SELFPAY | PROVIDERS: PCP Internal Medicine; Visit Provider Internal Medicine Hypertension Specialist | DX: N18.6 End stage renal disease (principal) | CPT/HCPCS: 90962 ==

== ENCOUNTER 2024-12-06 15:30 | Outpatient (AMB) | payer OTHER, SELFPAY ==
--- NOTE | 2024-12-06 15:37 | A.OFFPC_ITS ---
Vital Signs 12/06/24 15:49 Height 6 ft 2 in Weight 258 lb BMI 33.1 BP 110/90 H Blood Pressure Location Lt brachial Position Sitting Respiration 16 Pulse 94 Pulse Source Pulse Oximeter Temp 98.4 F Temp Source Oral Pulse Oximetry (%) 95 Oxygen Delivery Method Room Air Intake Visit Reasons: s/p cva Intake Note: Pt is here today for a HDF CVA [facility] Equipment Hire Manager Required: Yes Equipment Hire Manager Name: Nathaly, ID number [id number] Information Interpreted: clinical only Contact Lens Blocker And Cutter: Present () Accompanied by: Spouse Allergies No Known Allergies Allergy (Verified 12/08/24 15:57) Medication List - Last Reconciled 12/12/24 by Riya Olmos MD amlodipine 10 mg PO DAILY atorvastatin 40 mg PO BEDTIME [bed rail As directed] calcitriol 1 mcg PO DIRECTED carvedilol 25 mg PO Q12H clopidogrel 75 mg PO DAILY FreeStyle Lancets (lancets) USE TO TEST FINGER STICK BLOOD SUGAR 3 (THREE) TIMES A DAY NS FreeStyle Candelario 3 Plus Sensor (blood-glucose sensor) every 15 days NS FreeStyle Candelario 3 Colver (blood-glucose,statistician applied,cont) As directed NS furosemide 80 mg PO DAILY Grab bar one long bar 33-36 inches for inside the shower, one regular bar 18-24 inches for outside the shower [Hand rails As directed] hydralazine 10 mg PO TID insulin aspart U-100 8 units (0.08 mL) subcut TIDAC insulin glargine (Lantus Solostar U-100 Insulin) 48 units subcut QPM insulin syringe-needle U-100 (Comfort EZ Insulin Syringe) USE WITH insulin two (2) times a day ipratropium-albuterol 0.5 mg-3 mg(2.5 mg base)/3 mL 3 mL inhalation Q6-8H PRN 30 days isosorbide mononitrate ER 60 mg PO DAILY Mounjaro (tirzepatide) 7.5 mg (0.5 mL) subcut QWEEK NS nicotine 1 patch transdermal DAILY 28 days omega-3 acid ethyl esters (Lovaza) 2 caps PO BID [overbed table with wheels As directed] pen needle, diabetic (Comfort EZ [place]) USE DIRECTED 3 (THREE) TIMES A DAY [shower bar As directed] [Shower seat As directed] Symbicort 160-4.5 mcg/actuation (budesonide-formoterol) 2 puffs PO Q12H NS [Van lift As directed] [wheelchair As directed] [wheelchair As directed] [wheelchair ramp Pt is wheelchair bound, needs a ramp to exit the front door and 6 steps to get to the sidewalk] Tobacco use date assessed: 06/22/24 Dental Screening Dental Screen Date: 11/05/23 HPI s/p cva HPI Details 54-year-old male with history of diabete s mellitus with long-term insulin use, end-stage renal disease on hemodialysis, hypertension, status post right foot amputation with chronic wound, was recently admitted at [facility] for right-extremities weakness, right facial droop, and dysarthria , diagnosed with acute stroke. On admission where he had a CAT scan of the brain that showed no acute findings, CT angio of head and neck showed no large vessel occlusion but did show diffuse vascular disease. Neurology was consulted who ordered brain MRI. Patient however unable to complete due to claustrophobia. Echocardiogram was done showing no acute findings with a preserved ejection fraction. Neurology recommended dual antiplatelet therapy with aspirin and Plavix for 3 weeks, followed by Plavix only thereafter. Continued on atorvastatin 40 mg daily. Seen and evaluated by Physical Medicine and rehab and recommended no further outpatient therapy as he was back to baseline. Diabetes mellitus poorly controlled with hemoglobin A1c during admission at 8.3%. Continued on same insulin regimen of Lantus at 40 units daily at bedtime and insulin aspartame FlexPen 8 units injected 3 times a day before meals and Mounjaro 7.5 mg injected subcutaneously once a week Continued on dialysis, and home VNA was initiated.. At present patient states that he is feeling better, denies any headache, no chest pain, no shortness of breath, no weakness in extremities, no slurring of speech. Blood pressure today is within normal limits at 110/90 currently on amlodipine 10 mg daily furosemide 80 mg daily hydralazine 10 mg 3 times a day, carvedilol 25 mg 1 tablet twice a day. [facility] Medical History (Updated 12/12/24 @ 00:06 by Riya Olmos MD) Hx of completed stroke Diabetic infection of right foot Cellulitis of right foot Intermittent lightheadedness History of CVA with residual deficit Left cervical lymphadenopathy Obesity (BMI 30-39.9) Normocytic normochromic anemia COPD (chronic obstructive pulmonary disease) Smoker unmotivated to quit RODGER (obstructive sleep apnea) Generalized anxiety disorder 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 Essential hypertension Allergic rhinitis Mixed dyslipidemia Amputation, toe, traumatic Vitamin D deficiency Diabetes mellitus with neuropathy Diabetes mellitus with hyperglycemia, with long-term current use of insulin Osteoarthritis Fibromyalgia Spondylosis of cervical spine Surgical History History of foot surgery Family History Father HTN (hypertension) Diabetes Mental health disorder Mother HTN (hypertension) Brother Stroke Social History Household Members: Spouse Housing: House Do you presently have visiting nurse or other home services: No Alcohol intake: never Patient Tobacco Use Status: Former Tobacco user Cigarette Packs Per Day: 1 Cigarettes Per Day: 20.0 Years Smoked: 35 e-Cigarette/Vaping Use: Never Used Second Hand Smoke Exposure: No service: No Current occupational status: disabled Cognitive needs: No Hearing needs: No Vision needs: No Questionnaire PHQ-9 Over the last 2 weeks, how often have you been bothered by any of the following problems? 1. Little interest or pleasure in doing things: not at all 2. Feeling down, depressed, or hopeless: several days 3. Trouble falling or staying asleep, or sleeping too much: not at all 4. Feeling tired or having little energy: several days 5. Poor appetite or overeating: not at all 6. Feeling bad about yourself - or that you are a failure or have let yourself or your family down: not at all 7. Trouble concentrating on things, such as reading the newspaper or watching television: several days 8. Moving or speaking so slowly that other people could have noticed. Or the opposite - being so fidgety or restless that you have been moving around a lot more than usual: not at all 9. Thoughts that you would be better off or of hurting yourself in some way: not at all Total score: 3 Depression Screening Interpretation: Positive Depression Screening Follow-up: Existing condition, In treatment and Community Mental Health Worker F/U Depression Screening Done: Yes Source: Developed by Drs. Zachary Luis, Daphnie Nina, Froylan Jose and colleagues, with an educational samuel from [employer]. Thrive Questionnaire Date Thrive assessed: 11/05/23 I am a: Patient What is your living situation today?: I have a steady place to live Within the past 12 months, did the food you bought not last and you didn't have the money to get more?: Never true Within the past 12 months, did you worry whether your food would run out before you got money to buy more?: Never true Do you have trouble paying for medicines?: No Do you have trouble getting transportation to medical appointments?: No Do you have trouble paying your heating and electricity bill?: No Do you have trouble taking care of your child, family member or friend?: No Do you have trouble with day-to-day activities such as bathing, preparing meals, shopping, managing finances, etc.?: No Are you currently unemployed and looking for a job?: No Are you interested in more education?: No Please select the resources that you would like help with: None Currently or been in a relationship where the following occur: I choose not to answer THRIVE Score: 0 DEBORAH-7 AMB Questionnaire DEBORAH-7 Date DEBORAH - 7 assessed: 06/29/23 Source: Developed by Drs. Zachary Luis, Daphnie Nina, Froylan Jose and colleagues, with an educational samuel from [employer]. Review of Systems Const All systems reviewed & are unremarkable except as noted in HPI and below Eyes Reports no additional complaints ENT Reports no additional complaints Card Denies chest pain at rest, Denies irregular heart rhythm and Denies leg edema Resp Reports as per HPI GI Reports no additional complaints Reports no additional complaints Musc Reports abnormal gait (He has weakness of both lower extremities and is non ambulatory, uses wheel), Reports back pain and Reports muscle weakness Skin/Breast Reports system reviewed and no additional complaints, except as documented Neuro Reports abnormal gait (He has weakness of both lower extremities and is non ambulatory, uses wheel) Psych Reports no additional complaints Endo Reports other (Being treated for diabetes mellitus) Jomar/Lymph Denies easy bleeding and Reports easy bruising Aller/Immun Reports no additional complaints Physical exam (Primary Care) Vital Signs: Last Vital Signs Temp 98.4 F 12/06/24 15:49 Pulse 94 12/06/24 15:49 Resp 16 12/06/24 15:49 BP 110/90 H 12/06/24 15:49 Pulse Ox 95 12/06/24 15:49 Oxygen Delivery Method Room Air 12/06/24 15:49 BMI result Body Mass Index 33.1 Tobacco/Smoking Status: Tobacco use Status Tobacco use date assessed 06/22/24 12/06/24 15:58 Patient Tobacco Use Status Former Tobacco user 12/06/24 15:37 e-Cigarette/Vaping Use Never Used 12/06/24 15:37 PHQ-9: PHQ-9 Score PHQ-9: Total score 3 12/12/24 00:07 Depression Screening Interpretation: Positive Depression Screening Follow-up: Existing condition, In treatment and Community Mental Health Worker F/U Thrive Assessment: Date of Thrive Assessment Date Thrive assessed 11/05/23 12/06/24 15:37 Currently or been in a relationship where the following occur: I choose not to answer Const General: alert Orientation/consciousness: patient oriented x3 Limitations: wheelchair HENMT Ears: external ears normal General nose exam: Normal external nose present Mouth: Normal oral and palatal mucosa present and moist mucous membranes Eyes General: appearance normal, both eyes and all related structures Neck Neck: Yes full ROM, Yes no lymphadenopathy and Yes supple Resp Effort & Inspection: normal respiratory effort and able to speak in complete sentences Auscultation: clear to auscultation bilaterally Cardio Rate: regular rate Rhythm: regular rhythm Heart sounds: S1 normal heart sound present and S2 normal heart sound present GI Palpation (GI): Soft to palpation and nontender Auscultation: normal bowel sounds Skin General skin exam: no rashes or lesions noted Neuro General: patient oriented x3 and no focal motor deficits Cranial nerves: Yes CN's II-XII intact bilaterally Cognition (Neuro): normal cognition Extrem General: Yes amputation noted (Four toes on the right, only the 5th toe remaining) Psych Appearance: grossly normal and well kempt Mental Status: mental status grossly normal Speech and movement: Normal speech and movement present Affect: normal affect Coding Level of Care Code Est Pt Level 4 (16505) Complex EM visit Add On G2211 Diagnoses Hx of completed stroke Z86.73 Essential hypertension I10 Mixed dyslipidemia E78.2 Type 2 diabetes mellitus with hyperglycemia, with long-term current use of insulin E11.65; Z79.4 Diabetes mellitus type: type 2 ESRD on hemodialysis N18.6; Z99.2 COPD (chronic obstructive pulmonary disease) J44.9 Assessment & Plan Assessment & Plan (1) Hx of completed stroke: Code(s): Z86.73 - Personal history of transient ischemic attack (TIA), and cerebral infarction without residual deficits Category: Medical Plan: Seen by neurology who advised to take aspirin and Plavix for 3 weeks, and afterwards to continue with just Plavix 75 mg daily. Stressed importance of getting diabetes mellitus, hypertension and cholesterol levels well controlled. Currently on atorvastatin 40 mg daily (2) Essential hypertension: Code(s): I10 - Essential (primary) hypertension Category: Medical Plan: Blood pressure at goal of less than 130/80. Continue with current medication. Reinforced importance of following a low sodium diet, getting regular exercise, and lowering stress levels. (3) Mixed dyslipidemia: Code(s): E78.2 - Mixed hyperlipidemia Category: Medical Plan: Latest lipid levels obtained 10/24/2024 at [facility] showed total cholesterol 152, HDL 22, triglycerides 307 with an LDL cholesterol 69 mg/dL. Continued on atorvastatin 40 mg daily (4) Diabetes mellitus with hyperglycemia, with long-term current use of insulin: Code(s): E11.65 - Type 2 diabetes mellitus with hyperglycemia; Z79.4 - joint terminal attack controller (current) use of insulin Category: Medical Qualifiers: Diabetes mellitus type: type 2 Qualified Code(s): E11.65 - Type 2 diabetes mellitus with hyperglycemia; Z79.4 - joint terminal attack controller (current) use of insulin Plan: Last hemoglobin A1c obtained at [facility] on 10/25/2024 came back at 8.3%. Maintained on current dose of Lantus at 46 units at bedtime,, insulin aspartame and Mounjaro. Patient has freestyle Candelario but states that he thinks that his machine is malfunctioning as he keeps getting high readings on his machine but when he checks his fingerstick glucose it is reading lower. Reminded to keep his appointment with Endocrine Clinic next month, bring his freestyle Candelario and glucose log for review. Reinforced importance of adhering to recommended diet. Reminded to get an updated diabetes eye exam (5) ESRD on hemodialysis: Code(s): N18.6 - End stage renal disease; Z99.2 - Dependence on renal dialysis Category: Medical Plan: Currently on hemodialysis, has appointment with Nephrology later this week. (6) COPD (chronic obstructive pulmonary disease): Comment: HE HAS COMBINATION OF BRONCHIAL ASTHMA/COPD, WELL CONTROLLED AT PRESENT. HIS FEELING OF MUCUS BUILDING IN THE THROAT, IS SECONDARY TO NARROW UPPER AIRWAYS AND ALSO SMOKING. IT IS MUCH LESS AND HE CLAIMS THAT HE HAS STOP SMOKING COMPLETELY. Code(s): J44.9 - Chronic obstructive pulmonary disease, unspecified Category: Medical Plan: Currently followed by Pulmonary Clinic, on Symbicort 160-4.5 mcg per actuation 2 puffs twice a day
[2024-12-06 15:49] VITALS: BP 110/90; PULSE 94; RESP 16; TEMP 36.9; O2SAT 95; BMI 33.1
--- OUTSIDE RECORDS SUMMARY | 2024-12-06 20:36 | XMS_ITS ---
Author Organization [facility] Address [address] [place] [address] Care Team Providers Care Methods And Procedures Analyst Name Role Phone Riya Olmos MD Primary Care Provider Transplant Episode Kidney Candidate [facility] ([place], [place]) [facility] waitlisted on 09/01/2024 Marked as Active on 12/01/2024 Kidney CoordinatorAnabell Arana RN Fax: N/A Email: N/A Scores Score Value Updated Exceptions/Reas ons CPRA 0 09/05/2024 EPTS (Calc) 61 12/06/2024 [employer] [place] Organ Diagnosis Organ Primary Contributory Kidney Diabetes Mellitus - Type II Care Team Name Role Phone Fax Email Anabell Arana RN Kidney Coordinator [phone] N/A N/A Riya Olmos MD Academic Primary Care Attending [phone] N/A N/A Cole Del Valle Referring Physician [phone] N/A Events Pre-Transplant Referred: 03/02/2024 Evaluation began: 04/07/2024 Committee: 08/24/2024 UNOS qualified: 03/03/2024 Center waitlisted: 09/01/2024 Dialysis History Dialysis History Start End Type Comments Center 03/03/2024 Home Hemodialysis M, , Th, F [facility] Dialysis ([facility]) Dialysis Center Information Center Phone Fax Address [facility] Dialys[facility] s ([facility]) [phone] [place] [id number]
--- OUTSIDE RECORDS SUMMARY | 2024-12-06 20:37 | XMS_ITS | Clinical Summary ---
Author Organization [facility] Address [address] [place] [address] Care Team Providers Care Range Operator Name Role Phone Riya Olmos MD Primary [...] Encounters Date Type Department Care Team Description 11/16/2024 Orders Only [facility] Transplant Department [address] [place] [phone] Anabell Arana RN Colon cancer screening (Primary Dx); ESRD (end stage renal disease) ; Pre-transplant evaluation for kidney transplant 11/14/2024 Telephone [facility] Transplant Department [address] [place] [address] Anabell Arana RN 11/14/2024 Orders Only [facility] Transplant Department [address] [place] [phone] Anabell Arana, RN Pre-transplant evaluation for kidney transplant (Primary Dx); ESRD (end stage renal disease) (HCC) 11/14/2024 Abstract [facility] Transplant Department [address] [place] [phone] Anabell Arana RN 10/13/2024 2:00 PM EDT Office Visit [facility] Building Vascular Surgery [address] [place] [address] Coke Burner: Irma Cornelius MD Bilateral carotid artery stenosis (Primary Dx) 10/13/2024 11:56 AM EDT - 10/13/2024 11:59 PM EDT Hospital Encounter [facility] Vascular Lab [address] [place] [address] 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, with long-term current use of insulin (HCC) Discharge Disposition: Home or Self Care (01) 09/22/2024 Orders Only [facility] Specialty Surgical Services at [address] [address] Carlos Reed NP 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, with long-term current use of insulin (HCC) (Primary Dx) 09/21/2024 Telephone [facility] Building Vascular Surgery [address] [place] [address] Coke Burner: Dee Boles Telephone Intake, Staff PAC Appt Request - New 09/19/2024 Telephone [facility] Transplant Department [address] [place] [address] Anabell Arana RN 09/16/2024 Orders Only [facility] Transplant Department [address] [place] [address] Anabell Arana, RN Pre-transplant evaluation for kidney transplant (Primary Dx); 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, with long-term current use of insulin (HCC); Hypertension secondary to other renal disorders; Mixed hyperlipidemia; CVA, old, hemiparesis (HCC) 09/14/2024 2:02 PM EDT - 09/14/2024 11:59 PM EDT Hospital Encounter [facility] Vascular Lab [address] [place] [address] Saurabh Hcek MD Pre-transplant evaluation for kidney transplant; 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, with long-term current use of insulin (HCC); History of CVA (cerebrovascular accident); Hypertension secondary to other renal disorders; Mixed hyperlipidemia Discharge Disposition: Home or Self Care () from Last 3 Months Immunizations Immunization Administration Dates Next Due Influenza, Unspecified 12/18/2023 Pneumococcal Polysaccharide Vaccine, 23 Valent 0 10/02/2020 Social History Tobacco Use Types Packs/Day Years Used Date Smoking Tobacco: Former Cigarettes Passive Smoke Exposure: Past Smokeless Tobacco: Current Tobacco Cessation:Ready to Q [...] Info) Description 04/06/2025 11:20 AM EST Follow-Up [facility] Renal Transplant [address] [place] [address] Saurabh Heck MD [address] [place] [address] 10/13/2025 1:45 PM EDT Appointment [facility] ACC Vascular Lab [address] [place] [address] 10/13/2025 3:00 PM EDT Follow-Up [facility] Building Vascular Surgery [address] [place] [address] Coke Burner: Daphnie Camarena NP [address] [place] [address] Health Maintenance Due Date Last Done Comments [...] 07/13/2024, 10/02/2020, 12/01/2017 Procedures * Due to [place] state law, this organization might not be [...] to Health Maintenance Results * Due to [place] state law, this organization might not be [...] plaque Left Vertebral Artery: flow direction: antegrade Saurabh Heck MD CV VASCULAR PROCEDURES Jaylene l Result * (ABNORMAL) CBC Auto Differential (04/07/2024 11:40 AM EST) WBC 12.9(H) 3.8 - 10.8 10*3/uL 04/07/2024 12:05 PM EST [facility] RBC 3.83(L) 4.20 - 5.80 10*6/uL 04/07/2024 12:05 PM EST [facility] Hemoglobin 10.4(L) 13.2 - 17.1 g/dL 04/07/2024 12:05 PM EST [facility] Hematocrit 33.9(L) 38.5 - 50.0 % 04/07/2024 12:05 PM EST [facility] MCV 88.5 80.0 - 100.0 fL 04/07/2024 12:05 PM EST [facility] MCH 27.2 27.0 - 33.0 pg 04/07/2024 12:05 PM EST [facility] MCHC 30.7(L) 32.0 - 36.0 g/dL 04/07/2024 12:05 PM EST [facility] RDW 14.1 11.0 - 15.0 % 04/07/2024 12:05 PM EST [facility] Platelets 384 140 - 400 10*3/uL 04/07/2024 12:05 PM EST [facility] MPV 9.9 [...] - 0.20 10*3/uL 04/07/2024 12:05 PM EST [facility] nRBC % 0.0 /100 WBCs 04/07/2024 12:05 PM EST [facility] nRBC # <0.01 <0.01 10*3/uL 04/07/2024 12:05 PM EST [facility] Blood Structure of peripheral vein / Unknown Venipuncture / Unknown 04/07/2024 11:40 AM EST 04/07/2024 11:56 AM EST us Saurabh Heck MD LAB BLOOD ORDERABLES Final Result [facility] [address] [place] [address], * Hepatitis C Antibody w/Reflex to PCR (04/07/2024 11:40 AM EST) Hepatitis C Antibody NON-REACT EMILIANO NON-REACT EMILIANO 04/07/2024 7:09 PM EST [facility] Comment: HCV antibody was non-reactive. There is no laboratory evidence of HCV infection. In most cases, no further action is required. However, if recent HCV exposure is suspected, a test for HCV RNA (test code 35049) is suggested. For additional information please refer to http://education.[employer]/faq/IGP01z5 (This link is being provided for informational/ educational purposes only.) Blood Structure of peripheral vein / Unknown Venipuncture / Unknown 04/07/2024 11:40 AM EST 04/07/2024 11:56 AM EST Narrative [facility] - 04/07/2024 7:09 PM EST [facility] Received Date: us Saurabh Heck MD LAB BLOOD ORDERABLES Final Result [facility] [address], [place] [address], [place] [phone] [employer] [facility] [address], [place] [address], * Phosphorus (04/07/2024 11:40 AM EST) Phosphorus 4.4 2.5 - 4.5 mg/dL 04/07/2024 12:25 PM EST [facility] Blood Structure of peripheral vein / Unknown Venipuncture / Unknown 04/07/2024 11:40 AM EST 04/07/2024 11:56 AM EST us Saurabh Heck MD LAB BLOOD ORDERABLES Final Result [facility] [address] [place] [address], from Last 3 Months or Most Recently Relevant to Health Maintenance Insurance [place] [address] Care Teams Range Operator Relationship Specialty Start Date End Date Riya Olmos MD [address] [place] [id number] PCP - General Internal Medicine 06/15/24
--- OUTSIDE RECORDS SUMMARY | 2024-12-06 20:37 | XMS_ITS | Data Portability ---
Author Organization [employer] [place] [facility] Address [address] [place] [address] Care Team Providers Care Fusing Line Inspector Name Role Phone HIM CCA OTHER Assessment Encounter Date Assessment Date Assessment LastModified by Organization Details LastModified Time 02/20/2022 02/20/2022 svc called for cough, SOB found 51 yom with hx asthma, DM, s/p R toe amp 1wk worsening BLETRAN cough also reports frequency small volume urination [...] potentially exposed bone from toe amp -escalate Road Inspector, request dr tae decker on primary care team [email or web address] Not available 02/20/2022 23:04:08 07/27/2024 07/27/2024 service called f or pain found 53 yom with hx COPD HTN CKD multiple dental caries c/o facial pain and pain at AV fistula recently created; no new bleeding/swelling/ discharge at site reports R cheek, ear pain, swelling x 1 month; swelling improved to course of PO PCN, however, pain remains. Pt scheduled for f/up dental care for definitive treatment recnetly took 1g acetaminophen for pain VS af 192/95 (in setting of pain) 70 18 97%RA R sided facial swelling per image fistula site per image #Dental infection continue PCN course per dental pt to follow up for definitive dental care NSAIDS contraindicated at this time d/t CKD advised seek ED for additional pain management #AV Fistula appears intact continue acetaminophen, NSAIDS contraindicated d/t CKD if worsening pain present to ED otherwise return to primary team [email or web address] Not available 07/27/2024 21:10:03 Plan of Treatment Reminders Order Date Submit Date Provider Last Modified By Organization Details Last Modified Time Details Appointments None recorded. Lab None recorded. Referral None recorded. Procedures None recorded. Surgeries None recorded. Imaging None recorded. Medication Orders tamsulosin 0.4 mg capsule 2022 023 [place], [place] - [id number], [address] [place], [address], 3 19:11:02 ipratropium 0.5 mg-albutero l 3 mg (2.5 mg base)/3 mL nebulizatio n soln 2022 023 [place], [place] - [id number], [address] [place], [address], 3 19:41:14 Patient TargetsNo targets recorded. Patient InstructionsNo instructions recorded. Reason for Referral None Reported. Medical Equipment None Reported. Allergies No known drug allergies Medications Name Sig Start Date Stop Date [...] Not Available Not Available Comfort EZ Pen Isabella 31 gauge x 5/16 USE 3 (THREE) TIMES A DAY active Not Available Not Available Not Available Artificial Tears (mb763-dnxil prasanna-glyceri n) 1 %-0.2 %-0.2 % eye drops PLACE 1 DROP IN BOTH EYES TWICE DAILY active Not Available Not Available Not Available Comfort EZ Insulin Syringe 1 mL 31 gauge x 5/16 USE WITH insulin two (2) times a [...] Pulse oximetry Respiratory rate Heart rate Systolic And Diastolic Systolic And Diastolic Provider Name and Address Organization Details Last Updated DateTime 3 74 /min 98.2 [degF] 96 % 96 % 18 /min 98.2 [degF] 96 % 96 % 18 /min 74 /min 175/102 mm[Hg] 175/102 mm[Hg] Not Available [facility] 3 20:29:06 Date Recorded Respiratory rate Oxygen saturation Oxygen saturation in Arterial blood by Pulse oximetry Heart rate Body temperature Systolic And Diastolic Provider Name and Address Organization Details Last Updated DateTime 5 18 /min 97 % 97 % 70 /min 98 [degF] 192/95 mm[Hg] Not Available [facility] production 19:39:48 Social History None recorded. Functional Status None recorded. Mental Status None recorded. Family History Nothing Reported. Medical History No medical history recorded. Past Encounters Encounter ID Performer Location Encounter Start Date Encounter Closed Date Diagnosis/Indication Diagnosis SNOMED-CT Code Diagnosis ICD10 Code Diagnosis IMO Codes Diagnosis Note [id number] [facility] [address] [place] [phone] 02/20/2022 18:47:32 02/24/2022 09:20:13 Increased frequency of urination 393764520 R35.0 Cough 62114388 R05.9 [id number] Haylee Reyes MD [facility] [address] [place] [address] [phone] 07/27/2024 19:39:40 07/27/2024 21:13:06 Dental caries 07744051 K02.9 K04.7 [id number] Health Concerns Section Related Observation LastModified by Organization Detai ls LastModified Time None Recorded Concern Status LastModified by Organization Details LastModified Time None Recorded Advance Directives Directive None Recorded Payers Insurance Date Sequence Insurance Name Policy Number Policy Munoz Covered Member ID Munoz Member ID Guarantor Name 11/06/2023 1 [facility] - DOS PRIOR TO 2022 - DUAL ELIGIBLE (MEDICARE REPLACEMENT/ADV ANTAGE - HMO) Jam Ferguson [id number] Jam Ferguson 07/27/2024 1 [facility] - DOS ON OR AFTER 2022 - DUAL ELIGIBLE - PENITENTIARY OPTIONS AND ONE CARE (MEDICARE REPLACEMENT/ADV ANTAGE - HMO) Jma Ferguson [id number] Jam Ferguson Notes Date Note Type Note [...] Comments: 4 way call to obtain referral; foster care case manager(interpreted), nurse, member and this nurse. Per care [...] seeking 911/ED, but is acceptable to an [facility] visit. ...................... ...................... ...................... ...................... ...................... ...................... ......... Signalling And Communications Engineer Note: Sent to evaluate pt with polycomplaints [...] of wound was taken and uploaded to [employer]. Pt's has been changing bandage BID with [...] protect the wound when pt tries ADL's. [facility] [place] [place] is consulted and he orders duoneb, which is administered. Post neb reassessment of lungs reveal rales in lower L and still slight rhonchi in R but pt endorses relief. [facility] [place] [place] to order flomax, albuterol MDI, and combivent's to pt's pharmacy. [facility] [place] [place] will recommend repeat visit tomorrow for further evaluation/follow up and to possibly obtain urine sample. Provided reassurances to family that their concerns were valid and heard tonight with assistance of [facility] [place] [place]. Helped daughter write down all interventions performed tonight and which scripts were sent to pharmacy, provided pt education. Advised that pt will be needing f/u care with several different specialists. Circled back with [facility] [place] [place] who stated he will notify care team of all concerns that were brought to him tonight. Went over red flags and no further questions or concerns at this time and family will await visit tomorrow. ...................... ...................... ...................... ...................... ...................... ...................... ......... Disposition: Fulfilled Haylee Reyes MD [address] [facility],[address], [place], [address], [employer] 02/20/2022 23:04:28 07/27/2024 text/html CRC Nurse Triage Notes (Jarred Caballero - RN): Reason For Request: pain in mouth Patient Reports: Dental pain and fever, able to maintain secretions Denies: Sudden onset of dental pain, unable to manage own secretions Nosebleed lasting longer than one hour; unable to stop bleeding Throat swelling/difficult swallowing Chief Complaints: Dental Complaint PMH: COPD/Asthma, Hypertension, Chronic Kidney Disease PMH Reviewed at 07/27/2024 Allergies Reviewed at 07/27/2024: Comments: 53 y.o male complains of Dental Complaint x 1 month CG reports the pt is feeling unwell with dental pain - Seen by his Dental provider and was prescribed antibiotics -Completed - Symptoms are not improving - Increased pain - Pt now has right ear pain - right cheek swelling - 10/26 Denies fever - Manage own secretions Reports taking Tylenol with no relief Dental appointment next week Wellness check requested I provided information on the mobile health provider response time and advised the patient and/or caregiver to monitor reported signs and symptoms. I discussed the warning signs of when to seek emergency care. ...................... ...................... ...................... ...................... ...................... ...................... ......... Signalling And Communications Engineer Note From Donna Leonardo: Sent to a call for a pt complaining of dental pain. [facility] arrives on scene, pt is alert and oriented, airway is patent. Pt appears to be in significant pain, swishing water in his mouth, rubbing his head, face, and right arm while lying in bed. Pt's primary language is Maltese. Language line used during visit. Pt states he has been having dental problems for approx 2 years, and has been treated for dental infection in the past month. Pt was prescribed PCN by a dentist and is taking Tylenol for pain. Pt states he has been afraid to got to the dentist due to a bad interaction with a dentist in the past. Pt states he took PCN and facial swelling is improving. Pt states he has a f/u appt with dentist on Thursday and is awaiting an appt for teeth extractions under anesthesia. Pt complains of left facial/mouth/ear pain, headache, and also right arm pain due to having a fistula placed in right upper arm. Pt is requesting pain management. Pt is advised unfortunately we carry limited pain medication and the only thing we have to offer him is Tylenol, since Toradol and Advil are contraindicated. Pt states he undergoes dialysis each Thu, , and Thu. Medic offers to call ambulance to have pt transported to ED for pain management. Pt declines. BP:192/95, P:70, RR:18, SpO2:97% RA, T:98.0; Head: left side facial swelling no erythema or abscesses noted in mouth/left cheek; Pt has multiple decaying teeth in mouth; Lung sounds: clear bilaterally; Abdomen: soft, non-tender, no distention; Back: unremarkable; Extremities: unremarkable; Skin: pink, warm, dry; C consulted and pt is again advised we unfortunately cannot offer any pain medication as pt took Tylenol approx 1 hr prior to visit. Pt advised of option to go to ED/call 911 anytime. Red flags discussed. Pt has no further questions. ...................... ...................... ...................... ...................... ...................... ...................... ......... [facility] [place] [place] Consulted: Haylee Reyes ...................... ...................... ...................... ...................... ...................... ...................... ......... Disposition: Fulfilled Haylee Reyes MD [address] [place] [address],[address] [facility], [place], [address], KAY MORALES 07/27/2024 21:10:10
== END 2024-12-06 16:36 | disposition home or self-care (01) ==
LOC: HO.HMCC 15:31
PROVIDERS: PCP Internal Medicine; Visit Provider Internal Medicine
DX: I12.0 Hypertensive chronic kidney disease with stage 5 chronic kidney disease or end stage renal disease (principal); E11.65 Type 2 diabetes mellitus with hyperglycemia; Z79.4 Long term (current) use of insulin; N18.6 End stage renal disease; J44.9 Chronic obstructive pulmonary disease, unspecified; Z86.73 Personal history of transient ischemic attack (TIA), and cerebral infarction without residual deficits; E78.2 Mixed hyperlipidemia; Z99.2 Dependence on renal dialysis

== ENCOUNTER → 2024-12-06 15:30 | Outpatient (BNVA) | payer OTHER, SELFPAY | PROVIDERS: PCP Internal Medicine; Visit Provider Internal Medicine | DX: I12.0 Hypertensive chronic kidney disease with stage 5 chronic kidney disease or end stage renal disease (principal); E11.22 Type 2 diabetes mellitus with diabetic chronic kidney disease; N18.6 End stage renal disease; E78.2 Mixed hyperlipidemia; E11.65 Type 2 diabetes mellitus with hyperglycemia; J44.9 Chronic obstructive pulmonary disease, unspecified; Z86.73 Personal history of transient ischemic attack (TIA), and cerebral infarction without residual deficits; Z79.4 Long term (current) use of insulin; Z79.899 Other long term (current) drug therapy; Z99.2 Dependence on renal dialysis; Z13.31 Encounter for screening for depression | CPT/HCPCS: 96127; 99212 ==

== ENCOUNTER 2024-12-08 15:49 | Outpatient (AMB) | payer OTHER, SELFPAY ==
[2024-12-08 15:55] VITALS: BP 152/80
--- NOTE | 2024-12-08 15:55 | HO.NEPHOV_ITS ---
Vital Signs 12/08/24 15:55 Height 6 ft 2 in BP 152/80 H Blood Pressure Location Rt brachial Position Sitting Intake Visit Reasons: 1mon f/u w/labs, left vm Shale Processing Technician Required: Yes Shale Processing Technician Name: Anna [id number] Accompanied by: Spouse Allergies No Known Allergies Allergy (Verified 12/08/24 15:57) PFSH Medical History (Updated 12/12/24 @ 00:06 by Riya Olmos MD) Hx of completed stroke Diabetic infection of right foot Cellulitis of right foot Intermittent lightheadedness History of CVA with residual deficit Left cervical lymphadenopathy Obesity (BMI 30-39.9) Normocytic normochromic anemia COPD (chronic obstructive pulmonary disease) Smoker unmotivated to quit RODGER (obstructive sleep apnea) Generalized anxiety disorder 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 Essential hypertension Allergic rhinitis Mixed dyslipidemia Amputation, toe, traumatic Vitamin D deficiency Diabetes mellitus with neuropathy Diabetes mellitus with hyperglycemia, with long-term current use of insulin Osteoarthritis Fibromyalgia Spondylosis of cervical spine Surgical History History of foot surgery Family History Father HTN (hypertension) Diabetes Mental health disorder Mother HTN (hypertension) Brother Stroke Social History Household Members: Spouse Housing: House Do you presently have visiting nurse or other home services: No Alcohol intake: never Patient Tobacco Use Status: Former Tobacco user Cigarette Packs Per Day: 1 Cigarettes Per Day: 20.0 Years Smoked: 35 e-Cigarette/Vaping Use: Never Used Second Hand Smoke Exposure: No service: No Current occupational status: disabled Cognitive needs: No Hearing needs: No Vision needs: No Physical Exam Vital Signs: Last Vital Signs BP 152/80 H 12/08/24 15:55 Results Reviewed Nephrology Results: Renal US 01/21/23 Assessment & Plan Assessment & Plan (1) ESRD on hemodialysis: Code(s): N18.6 - End stage renal disease; Z99.2 - Dependence on renal dialysis Category: Medical Plan see emr Coding Level of Care Code Global (55324) Diagnoses ESRD on hemodialysis N18.6; Z99.2
--- OUTSIDE RECORDS SUMMARY | 2024-12-08 19:18 | XMS_ITS | Encounter Summary ---
Author Organization [facility] Address [address] [place] [address] Care Team Providers Care Refinish Technician Name Role Phone Riya Olmos MD Primary Care Provider Encounter Details Date Type Department Care Team (Late st Contact Info) Description 10/24/2024 Orders Only External Imaging [address] [place] [address] Radiology, External [address] [place] [address] Social History Tobacco Use Types Packs/Day Years Used Date Smoking Tobacco: Some Days Cigarettes Smokeless Tobacco: Current Comments:Maybe 1 to 2 a day Sex and Gender Information Value Date Recorded Sex Assigned at Male 04/07/2024 7:39 AM EST Legal Sex Male 3:14 PM EST Gender Identity Not on file Sexual Orientation Not on file documented as of this encounter Plan of Treatment Upcoming Encounters Date Type Department Care Team (Late st Contact Info) Description 04/06/2025 11:20 AM EST Follow-Up [facility] Renal Transplant [address] [place] [address] Saurabh Heck MD [address] [place] [address] 10/13/2025 1:45 PM EDT Appointment [facility] ACC Vascular Lab [address] [place] [address] 10/13/2025 3:00 PM EDT Follow-Up [facility] ACC Building Vascular Surgery [address] [place] [address] Supervisor Type Disk Quality Control: Daphnie Camarena NP [address] [place] [address] Pending Results Name Type Priority Associated Diagnoses Date /Time CT Transfer of Outside Films Head Imaging Routine 12/08/2024 2:16 PM EDT Scheduled Orders Name Type Priority Associated Diagnoses Orde r Schedule CT Transfer of Outside Films Head Imaging Routine [address] arting 12/08/2024 until 02/07/2026 documented as of this encounter Visit Diagnoses Not on filedocumented in this encounter Care Teams Refinish Technician Relationship Specialty Start Date End Date Riya Olmos MD [address] [place] [id number] PCP - General Internal Medicine 06/15/24 documented as of this encounter
--- OUTSIDE RECORDS SUMMARY | 2024-12-08 19:18 | XMS_ITS | Clinical Summary ---
Author Organization [facility] Address [address] [place] [address] Care Team Providers Care Service Bar Cashier Name Role Phone Riya Olmos MD Primary [...] Department Care Team Description 11/16/2024 Orders Only [facility] Transplant Department [address] [place] [address] Anabell Arana RN Colon cancer screening (Primary Dx); ESRD (end stage renal disease) ; Pre-transplant evaluation for kidney transplant 11/14/2024 Telephone [facility] Transplant Department [address] [place] [phone] Anabell Arana RN 11/14/2024 Orders Only [facility] Transplant Department [address] [place] [address] Anabell Arana, RN Pre-transplant evaluation for kidney transplant (Primary Dx); ESRD (end stage renal disease) (HCC) 11/14/2024 Abstract [facility] Transplant Department [address] [place] [phone] Anabell Arana RN 10/24/2024 Orders Only External Imaging [address] [place] [address] Radiology, External 10/13/2024 2:00 PM EDT Office Visit [facility] Building Vascular Surgery [address] [place] [address] Adjutant General: Irma Cornelius MD Bilateral carotid artery stenosis (Primary Dx) 10/13/2024 11:56 AM EDT - 10/13/2024 11:59 PM EDT Hospital Encounter [facility] Vascular Lab [address] [place] [address] 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, with long-term current use of insulin (HCC) Discharge Disposition: Home or Self Care () 09/22/2024 Orders Only [facility] Specialty Surgical Services at [address] [address] Carlos Reed NP 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, with long-term current use of insulin (HCC) (Primary Dx) 09/21/2024 Telephone [facility] Building Vascular Surgery [address] [place] [address] Adjutant General: Dee Boles Telephone Intake, Staff PAC Appt Request - New 09/19/2024 Telephone [facility] Transplant Department [address] [place] [phone] Anabell Arana RN 09/16/2024 Orders Only [facility] Transplant Department [address] [place] [address] Anabell Arana, RN Pre-transplant evaluation for kidney transplant (Primary Dx); 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, with long-term current use of insulin (HCC); Hypertension secondary to other renal disorders; Mixed hyperlipidemia; CVA, old, hemiparesis (HCC) 09/14/2024 2:02 PM EDT - 09/14/2024 11:59 PM EDT Hospital Encounter [facility] Vascular Lab [address] [place] [address] Saurabh Heck MD Pre-transplant evaluation for kidney [...] Info) Description 04/06/2025 11:20 AM EST Follow-Up [facility] Renal Transplant [address] [place] [address] Saurabh eHck MD [address] [place] [address] 10/13/2025 1:45 PM EDT Appointment [facility] ACC Vascular Lab [address] [place] [address] 10/13/2025 3:00 PM EDT Follow-Up [facility] ACC Building Vascular Surgery [address] [place] [address] Adjutant General: Daphnie Camarena NP [address] [place] [address] Health Maintenance Due Date Last Done Comments [...] Screening 02/17/2024 Depression Screening and Follow-Up 02/17/2024 [employer] ual Screening 02/17/2024 COVID-19 Vaccine (3 - 2024-2 6 season) 2024 07/22/2020, 07/01/2020 Hemoglobin 04/07/2025 04/07/2024 Phosphorus 04/07/2025 04/07/2024 DTaP,Tdap,and Td Vaccines (2 - Td or Tdap) 07/27/2028 07/27/2018 RSV Vaccine (60+ years old a nd patients) (1 - 1-dose 75+ series) 10/11/2043 CKD: Referral to Nephrology Completed 04/07/2024 HIV Screening Completed 04/07/2024 Hepatitis C Screening Completed 04/07/2024 Hepatitis B Vaccines Completed 07/13/2024, 03/21/19 Pneumococcal Vaccine: 50+ Years Completed 07/13/2024, 10/02/2020, 12/01/2017 Influenza Vaccine Completed 11/30/2024, , 12/18/2023, Additional history exists Procedures * Due to [place] state law, this organization might not be sharing negative HIV tests. Procedure Name Priority Date/Time Associated Diagnosis Comments HLA MONTHYLY ANTIBODY IDENTIFICATION - CLASS II Routine 11/21/2024 12:00 AM EDT Pre-transplant evaluation for kidney transplant ESRD (end stage renal disease) HLA MONTHLY ANTIBODY IDENTIFICATION - CLASS I Routine 11/21/2024 12:00 AM EDT Pre-transplant evaluation for kidney transplant ESRD (end stage renal disease) ANKLE/BRACHIAL INDEX AND ARTERIAL WAVEFORM ANALYSIS Routine [...] to Health Maintenance Results * Due to [place] state law, this organization might not be [...] - 36.0 g/dL 04/07/2024 12:05 PM EST [facility] RDW 14.1 11.0 - 15.0 % 04/07/2024 12:05 PM EST [facility] Platelets 384 140 - 400 10*3/uL 04/07/2024 12:05 PM EST [facility] MPV 9.9 7.5 - 12.5 fL 04/07/2024 12:05 PM EST [facility] Neutrophil % [...] - 0.20 10*3/uL 04/07/2024 12:[address] [facility] nRBC % 0.0 /100 WBCs 04/07/2024 12:05 PM EST [facility] [employer] CLINICAL PATHOLOGY LABORATORY nRBC # <0.01 <0.01 10*3/uL 04/07/2024 12:05 PM EST [facility] CLINICAL PATHOLOG[facility] LABOR[facility]ORY Blood Structure of peripheral vein / Unknown Venipuncture / Unknown 04/07/2024 11:40 AM EST 04/07/2024 11:56 AM EST us Saurabh Heck MD LAB BLOOD ORDERABLES Final Result [facility] CL[facility]ICAL [facility] LABOR[facility] [address] [place] [address], [place] * Hepatitis C Antibody w/Reflex to PCR (04/07/2024 11:40 AM EST) Hepatitis C Antibody NON-REACT EMILIANO NON-REACT EMILIANO 04/07/2024 7:09 PM EST [facility] Comment: HCV antibody was non-reactive. There is no laboratory evidence of HCV infection. In most cases, no further action is required. However, if recent HCV exposure is suspected, a test for HCV RNA (test code 82693) is suggested. For additional information please refer to http://education.[employer]/faq/MUM42k3 (This link is being provided for informational/ educational purposes only.) Blood Structure of peripheral vein / Unknown Venipuncture / Unknown 04/07/2024 11:40 AM EST 04/07/2024 11:56 AM EST Narrative [facility] - 04/07/2024 7:09 PM EST [facility] Received Date: us Saurabh Heck MD LAB BLOOD ORDERABLES Final Result [facility] [address] [place] [address] [address] Floor, [place] [address], [place] [phone] [facility] [employer] [address], [place] [address], * Phosphorus (04/07/2024 11:40 AM EST) Phosphorus 4.4 2.5 - 4.5 mg/dL 04/07/2024 12:25 PM EST [facility] Blood Structure of peripheral vein / Unknown Venipuncture / Unknown 04/07/2024 11:40 AM EST 04/07/2024 11:56 AM EST us Saurabh Heck MD LAB BLOOD ORDERABLES Final Result [facility] [address] [place] [address], from Last 3 Months or Most Recently Relevant to Health Maintenance Insurance [employer] [facility] [place] [id number] [employer] [facility] Care Teams Service Bar Cashier Relationship Specialty Start Date End Date Riya Olmos MD [facility] [place] [address] PCP - General Internal Medicine 06/15/24
--- OUTSIDE RECORDS SUMMARY | 2024-12-08 19:18 | XMS_ITS ---
Author Organization [facility] Address [address] [place] [address] Care Team Providers Care Tie Hacker Name Role Phone Riya Olmos MD Primary Care Provider Transplant Episode Kidney Candidate [facility] ([place], [place]) [facility] waitlisted on 09/01/2024 Marked as Active on 12/01/2024 Kidney CoordinatorAnabell Arana RN Fax: N/A Email: N/A Scores Score Value Updated Exceptions/Reas ons CPRA 0 09/05/2024 EPTS (Calc) 61 12/08/2024 [place] Organ Diagnosis Organ Primary Contributory Kidney Diabetes Mellitus - Type II Care Team Name Role Phone Fax Email Anabell Arana RN Kidney Coordinator [phone] N/A N/A Riya Olmos MD Academic Primary Care Attending [phone] N/A N/A Cole Del Valle Referring Physician [phone] N/A Events Pre-Transplant Referred: 03/02/2024 Evaluation began: 04/07/2024 Committee: 08/24/2024 UNOS qualified: 03/03/2024 Center waitlisted: 09/01/2024 Dialysis History Dialysis History Start End Type Comments Center 03/03/2024 Home Hemodialysis M, , Th, [facility] Dialysis ([facility]) Dialysis Center Information Center Phone Fax Address [facility] Dialysi s ([facility]) [phone] [place] [address]
--- OUTSIDE RECORDS SUMMARY | 2024-12-08 19:18 | XMS_ITS | Encounter Summary ---
Author Organization [facility] Address [address] [place] [address] Encounters * CPT with Prosper Aldridge at [employer] on 2024-07-28 { reasonForRequest : pain in mouth , patientReports : Dental pain and fever, able to maintain secretions , denies :[ Sudden onset of dental pain, unable to manage own secretions , Nosebleed lasting longer than one hour; unable to stop bleeding , Throat swelling/difficult swallowing ], chiefComplaints : Dental Complaint , pmh : COPD/Asthma, Hypertension, Chronic Kidney Disease , allergies : No Known Drug Allergies , otherAllergies : ,&q uot;painAssessment : , visitOutcome : , additionalComments : 53 y.o male complains of Dental Complaint x 1 month\n\nCG reports the pt is feeling unwell with dental pain - Seen by his Dental provider and was prescribed antibiotics - Completed - Symptoms are not improving - Increased pain - Pt now has right ear pain - right cheek swelling - 10/26\n\nDenies fever - Manage own secretions\n\nReports taking Tylenol with no relief\n\nDental appointmentnext week \n\nWellness check requested \n\nI provided information on the mobile health provider response time and advised the patient and/or caregiver to monitor reported signs and symptoms. I discussed the warning signs of when to seek emergency care. } Sent to a call for a pt complaining of dental pain. SC[facility] arrives on scene, pt is alert and oriented,airway is patent. Pt appears to be in significant pain, swishing water in his mouth, rubbing his head, face, and right arm while lying in bed. Pt's primary language is Tunisian. Language line used during visit. Pt states he has been having dental problems for approx 2 years, and has been treated fordental infection in the past month. Pt was prescribed PCN by a dentist and is taking Tylenol for pain. Pt states he has been afraid to got to the dentist due to a bad interaction with a dentist in the past. Pt states he took PCN and facial swelling is improving. Pt states he has a f/u appt with dent ist on Thursday and is awaiting an appt [...] sounds: clear bilaterally; Abdomen: soft, non-tender, no distention;Back: unremarkable; Extremities: unremarkable; Skin: pink, warm, dry; [facility] consulted and pt is againadvised we unfortunately cannot offer any pain medication as pt took Tylenol approx 1 hr prior to visit. Pt advised of option to go to ED/call 911 anytime. Red flags discussed. Pt has no further questions. ORAL_MEDICATION, POC_FLU_STREP, COVID_TEST Written by Prosper Adlridge on 2024-07-28
== END 2024-12-08 16:09 | disposition home or self-care (01) ==
LOC: HO.HKA 15:50
PROVIDERS: PCP Internal Medicine; Visit Provider Internal Medicine Hypertension Specialist
DX: N18.6 End stage renal disease (principal); Z99.2 Dependence on renal dialysis
CPT/HCPCS: 99024

== ENCOUNTER → 2024-12-08 15:49 | Outpatient (BNVA) | payer OTHER, SELFPAY | PROVIDERS: PCP Internal Medicine; Visit Provider Internal Medicine Hypertension Specialist | DX: N18.6 End stage renal disease (principal); Z99.2 Dependence on renal dialysis | CPT/HCPCS: 99212 ==

== ENCOUNTER → 2024-12-17 23:59 | Outpatient (BNV) | payer OTHER, SELFPAY | PROVIDERS: PCP Internal Medicine; Visit Provider Internal Medicine Hypertension Specialist | DX: N18.6 End stage renal disease (principal) | CPT/HCPCS: 90962 ==

== ENCOUNTER → 2025-01-02 23:59 | Outpatient (BNV) | payer OTHER, SELFPAY | PROVIDERS: PCP Internal Medicine; Visit Provider Internal Medicine | DX: E11.622 Type 2 diabetes mellitus with other skin ulcer (principal); I12.9 Hypertensive chronic kidney disease with stage 1 through stage 4 chronic kidney disease, or unspecified chronic kidney disease; N18.30 Chronic kidney disease, stage 3 unspecified | CPT/HCPCS: G0179 ==

== ENCOUNTER 2025-01-05 | Outpatient (REF) | payer OTHER, SELFPAY ==
--- OUTSIDE RECORDS SUMMARY | 2025-01-05 20:17 | XMS_ITS | Clinical Summary ---
Author Organization [facility] Address [address] [place] [address] Care Team Providers Care Manufacturing Director Name Role Phone Riya Olmos MD Primary [...] Encounters Date Type Department Care Team Description 12/28/2024 Orders Only [facility] Transplant Department [address] [place] [address] [id number] Irma Frias, RN ESRD (end stage renal disease) (Primary Dx); Pre-transplant evaluation for kidney transplant 12/28/2024 Telephone [facility] Transplant Department [address] [place] [address] 45717 Irma Frias, GEORGIE 12/23/2024 Orders Only [facility] Transplant Department [address] [place] [address] [phone] Anabell Arana, RN ESRD (end stage renal disease) (Primary Dx); Pre-transplant evaluation for kidney transplant 12/23/2024 Telephone [facility] Transplant Department [address] [place] [address] [phone] Anabell Arana, RN 11/16/2024 Orders Only [facility] Transplant Department [address] [place] [address] 11158 Anabell Arana, RN Colon cancer screening (Primary Dx); ESRD (end stage renal disease) ; Pre-transplant evaluation for kidney transplant 11/14/2024 Telephone [facility] Transplant Department [address] [place] [address]231 Anabell Arana, RN 11/14/2024 Orders Only [facility] Transplant Department [address] [place] [address] 25250 Anabell Arana RN Pre-transplant evaluation for kidney transplant (Primary Dx); ESRD (end stage renal disease) (HCC) 11/14/2024 Abstract [facility] Transplant Department [address] [place] [address] Anabell Arana RN 10/24/2024 Orders Only External Imaging [address] [place] [address] Radiology, External 10/13/2024 2:00 PM EDT Office Visit [facility] Vascular Surgery [address] [place] [address] Block Cutter: Irma Cornelius MD Bilateral carotid artery stenosis (Primary Dx) 10/13/2024 11:56 AM EDT - 10/13/2024 11:59 PM EDT Hospital Encounter [facility] ACC Vascular Lab [address] [place] [phone] 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, with long-term current use of insulin ([facility]) Discharge Disposition: Home or Self Care (01) from Last 3 Months Immunizations Immunization Administration [...] Info) Description 04/06/2025 11:20 AM EST Follow-Up [facility] Renal Transplant [address] [place] [address] Saurabh Heck MD [address] [place] [address] 10/13/2025 1:45 PM EDT Appointment [facility] Vascular Lab [address] [place] [address] 10/13/2025 3:00 PM EDT Follow-Up [facility] Building Vascular Surgery [address] [place] [address] Block Cutter: Daphnie Camarena NP [address] [place] [address] Health Maintenance Due Date Last Done Comments 25 Hydroxy / Vitamin D 1968 Basic Metabolic Panel 1968 CKD: Referral to Nutrition 1968 Colonoscopy 1968 FOBT / Fit Test 1968 Hemoglobin A1C 1968 PTH 1968 Sigmoidoscopy 1968 Ophthalmology Exam [address] Lung Cancer Screening (Baseline) 2018 Zoster Vaccines (1 of 2) 2018 Alcohol/Substance Use Screening 02/17/2024 Depression Screening and Follow-Up 02/17/2024 Social Drivers of Health Lexus ual Screening 02/17/2024 COVID-19 Vaccine (2024-2 6 season) 2024 07/22/2020, 07/01/2020 Hemoglobin 04/07/2025 04/07/2024 Phosphorus 04/07/2025 04/07/2024 Cologuard 12/01/2027 11/30/2024, 11/30/2024 Colon Cancer Screening 12/01/2027 DTaP,Tdap,and Td Vaccines (2 - Td or Tdap) 07/27/2028 07/27/2018 CKD: Referral to Nephrology Completed 04/07/2024 HIV Screening Completed 04/07/2024 Hepatitis C Screening Completed 04/07/2024 Hepatitis B Vaccines Completed 07/13/2024, 03/21/19 Pneumococcal Vaccine: 50+ Years Completed 07/13/2024, 10/02/2020, 12/01/2017 Influenza Vaccine Completed 11/30/2024, , 12/18/2023, Additional history exists Procedures * Due to [place] law, this organization might not be sharing negative HIV tests. Procedure Name Priority Date/Time Associated Diagnosis Comments COLOGUARD Routine 11/30/2024 11:00 PM EDT Colon cancer screening ESRD (end stage renal disease) Pre-transplant evaluation for kidney transplant HLA MONTHYLY ANTIBODY IDENTIFICATION - CLASS II [...] with long-term current use of insulin (HCC) HEPATITIS C ANTIBODY W/REFLEX TO HCV RNA, [...] to Health Maintenance Results * Due to [place] state law, this organization might not be sharing negative HIV tests. * Cologuard (11/30/2024 11:00 PM EDT) Cologuard Negative Negative 12/12/2024 2:04 AM EDT [email or web address] (CLIA #:[id number]) Comment: The Cologuard (TM) test was performed on this specimen. NEGATIVE TEST RESULT. A negative Cologuard result indicates a low likelihood that a colorectal cancer (CRC) or advanced adenoma (adenomatous polyps with more advanced pre-malignant features) is present. The chance that a person with a negative Cologuard test has a colorectal cancer is less than 1 in 1500 (negative predictive value >99.9%) or has an advanced adenoma is less than 5.3% (negative predictive value 94.7%). These data are based on a prospective cross-sectional study of 10,000 individuals at average risk for colorectal cancer who were screened with both Cologuard and colonoscopy. (Richard Weber et al, N Engl J Med 2014;370(14):1286- 1297) The normal value (reference range) for this assay is negative. COLOGUARD RE-SCREENING RECOMMENDATION: Periodic colorectal cancer screening is an important part of preventive healthcare for asymptomatic individuals at average risk for colorectal cancer. Following a negative Cologuard result, the [place] Cancer Society and U.S. Multi-Society Task Force screening guidelines recommend a Cologuard re-screening interval of 3 years. References: [place] [employer] Guideline for Colorectal Cancer Screening: https://www.cancer.org/cancer/ymvtp-yhjfhe-psroqf/tugqjkorl-jvtochaju-ncmkpar/ac s-rec ommendations.html.; Nii GUILLEN, Yadira CR, Siena ToussaintK, Colorectal Cancer Screening: Recommendations for Physicians and Patients from the U.S. Multi-Society Task Force on Colorectal Cancer Screening , Am J Gastroenterology 2017; 112:4223-8043. TEST DESCRIPTION: Composite algorithmic analysis of stool DNA-biomarkers with hemoglobin immunoassay. Quantitative values of individual biomarkers are not reportable and are not associated with individual biomarker result reference ranges. Cologuard is intended for colorectal cancer screening of adults of either sex, 45 years or older, who are at average-risk for colorectal cancer (CRC). Cologuard has been approved for use by the U.S. FDA. The performance of Cologuard was established in a cross sectional study of average-risk adults aged 50-84. Cologuard performance in patients ages 45 to 49 years was estimated by sub-group analysis of near-age groups. Colonoscopies performed for a positive result may find as the most clinically significant lesion: colorectal cancer [4.0%], advanced adenoma (including sessile serrated polyps greater than or equal to 1cm diameter) [20%] or non- advanced adenoma [31%]; or no colorectal neoplasia [45%]. These estimates are derived from a prospective cross-sectional screening study of 10,000 individuals at average risk for colorectal cancer who were screened with both Cologuard and colonoscopy. (Richard Beltran al, N Engl J Med 2014;370(14):8082-9902.) Cologuard may produce a false negative or false positive result (no colorectal cancer or precancerous polyp present at colonoscopy follow up). A negative Cologuard test result does not guarantee the absence of CRC or advanced adenoma (pre-cancer). The current Cologuard screening interval is every 3 years. ([place] Cancer Society and U.S. Multi-Society Task Force). Cologuard performance data in a 10,000 patient pivotal study using colonoscopy as the reference method can be accessed at the following location: www.[employer]/results. Additional description of the Cologuard test process, warnings and precautions can be found at www.[employer].com. Stool specimen (specimen) Rectal route / Unknown 11/30/2024 11:00 PM EDT 12/01/2024 12:50 PM EDT us Fady Newman MD AMB LAB ORDERABLES Final Result [email or web address] (CLIA #:[id number]) [address] [place] [address], * Ankle/Brachial Index and Arterial Waveform Analysis [...] CV VASCULAR PROCEDURES Final Re sult * (ABNORMAL) CBC Auto Differential (04/07/2024 11:40 AM EST) WBC 12.9(H) 3.8 - 10.8 10*3/uL 04/07/2024 12:[address] [facility] RBC 3.83(L) 4.20 - 5.80 10*6/uL 04/07/2024 12:[address] [facility] Hemoglobin 10.4(L) 13.2 - 17.1 g/dL 04/07/2024 12:[address] [facility] Hematocrit 33.9(L) 38.5 - 50.0 % 04/07/2024 12:[address] [facility] MCV 88.5 80.0 - [...] - 0.95 10*3/uL 04/07/2024 12:05 PM EST [facility] Eosinophil # 0.60(H) 0.02 - 0.50 10*3/uL 04/07/2024 12:[address] [facility] Basophil # 0.10 0.00 - 0.20 10*3/uL 04/07/2024 12:[address] [facility] nRBC % 0.0 /100 WBCs 04/07/2024 12:[address] [facility] nRBC # <0.01 <0.01 10*3/uL 04/07/2024 12:[address] [facility] Blood Structure of peripheral vein / Unknown Venipuncture / Unknown 04/07/2024 11:40 AM EST 04/07/2024 11:56 AM EST us Saurabh Heck MD LAB BLOOD ORDERABLES Final Result [facility] [address] [place] [address], * Hepatitis C Antibody w/Reflex to PCR (04/07/2024 11:40 AM EST) Hepatitis C Antibody NON-REACT EMILIANO NON-REACT EMILIANO 04/07/2024 7:09 PM EST [facility] Comment: HCV antibody was non-reactive. There is no laboratory evidence of HCV infection. In most cases, no further action is required. However, if recent HCV exposure is suspected, a test for HCV RNA (test code 05871) is suggested. For additional information please refer to http://education.[employer]/faq/PFZ04w8 (This link is being provided for informational/ educational purposes only.) Blood Structure of peripheral vein / Unknown Venipuncture / Unknown 04/07/2024 11:40 AM EST 04/07/2024 11:56 AM EST Narrative [facility] - 04/07/2024 7:09 PM EST [facility] Received Date: Saurabh Heck MD LAB BLOOD ORDERABLES Final Result [facility] [address], [place] [address], [place] [phone] [facility] [address], [place] [address], [place] [phone] * Phosphorus (04/07/2024 11:40 AM EST) Phosphorus 4.4 2.5 - 4.5 mg/dL 04/07/2024 12:[address] [facility] Blood Structure of peripheral vein / Unknown Venipuncture / Unknown 04/07/2024 11:40 AM EST 04/07/2024 11:56 AM EST Saurabh Heck MD LAB BLOOD ORDERABLES Final Result [facility] [address] [place] [address], from Last 3 Months or Most Recently Relevant to Health Maintenance Insurance [address] [address] [place] [id number] [facility] [place] [id number] Care Teams Manufacturing Director Relationship Specialty Start Date End Date Riya Olmos MD [address] [place] [phone] PCP - General Internal Medicine 06/15/24
--- OUTSIDE RECORDS SUMMARY | 2025-01-05 20:17 | XMS_ITS | Data Portability ---
Author Organization [facility] [employer] [facility] Address [address] [place] [address] Care Team Providers Care Bindery Technician Name Role Phone HIM CCA OTHER Assessment [...] potentially exposed bone from toe amp -escalate Lead Python Developer, request dr tae decker on primary care [...] Orders tamsulosin 0.4 mg capsule 2022 [address] [place], [place] - [id number], [address] [place], [address], 3 19:11:02 ipratropium 0.5 mg-albutero l 3 mg (2.5 mg base)/3 mL nebulizatio n soln 2022 0[address] [place], [place] - [id number], [address] [place], [address], 3 19:41:14 Patient TargetsNo targets recorded. Patient [...] Not Available Not Available Comfort EZ Pen [place] 31 gauge x 5/16 USE 3 (THREE) TIMES A DAY active Not Available Not Available Not Available Artificial Tears ([id number] prasanna-glyceri n) 1 %-0.2 %-0.2 % eye [...] Recorded Heart rate Body temperature Oxygen saturation Respiratory rate Body temperature Oxygen saturation Respiratory rate Heart rate Systolic And Diastolic Systolic And Diastolic Provider Name and Address Organization Details Last Updated DateTime 3 74 /min 98.2 [degF] 96 % 18 /min 98.2 [degF] 96 % 18 /min 74 /min 175/102 mm[Hg] 175/102 mm[Hg] Not Available [facility] - production 3 20:29:06 Date Recorded Respiratory rate Oxygen saturation Heart rate Body temperature Systolic And Diastolic Provider Name and Address Organization Details Last Updated DateTime 5 18 /min 97 % 70 /min 98 [degF] 192/95 mm[Hg] Not Available [facility] - production 5 19:39:48 Social History None recorded. Functional Status None recorded. Mental Status None recorded. Family History Nothing Reported. Medical History No medical history recorded. Past Encounters Encounter ID Performer Location Encounter Start Date Encounter Closed Date Diagnosis/Indication Diagnosis SNOMED-CT Code Diagnosis ICD10 Code Diagnosis IMO Codes Diagnosis Note [id number] Haylee Reyes MD Main - [facility] [address] [place] [phone] 02/20/2022 18:47:32 02/24/2022 09:20:13 Increased frequency of urination [id number] R35.0 Cough [id number] R05.9 [id number] Haylee Reyes MD Main-[facility] ED Medical [address] [phone] 07/27/2024 19:39:40 07/27/2024 21:13:06 Dental caries 80088481 K02.9 K04.7 [id number] Health Concerns Section Related Observation LastModified by Organization Detai ls LastModified Time None Recorded Concern Status LastModified by Organization Details LastModified Time None Recorded Advance Directives Directive None Recorded Payers Insurance Date Sequence Insurance Name Policy Number Policy Munoz Covered Member ID Munoz Member ID Guarantor Name 11/06/2023 1 [facility] - DOS PRIOR TO 2022 - DUAL ELIGIBLE (MEDICARE REPLACEMENT/ADV ANTAGE - HMO) Jam Ferguson [id number] Jam Ferguson 07/27/2024 1 [facility] - DOS ON OR AFTER 2022 - DUAL ELIGIBLE - SENIOR LIVING OPTIONS AND ONE CARE (MEDICARE REPLACEMENT/ADV ANTAGE - HMO) Jam Ferguson [id number] Jam Ferguson Notes Date Note Type Note [...] Comments: 4 way call to obtain referral; adult caregiver(interpreted), nurse, member and this nurse. Per care [...] seeking 911/ED, but is acceptable to an [facility] visit. ...................... ...................... ...................... ...................... ...................... ...................... ......... Plastic Printer Note: Sent to evaluate pt with polycomplaints [...] of wound was taken and uploaded to [employer]. Pt's has been changing bandage BID with [...] protect the wound when pt tries ADL's. [facility] is consulted and he orders duoneb, which is administered. Post neb reassessment of lungs reveal rales in lower L and still slight rhonchi in R but pt endorses relief. C to order flomax, albuterol MDI, and combivent's to pt's pharmacy. [facility] will recommend repeat visit tomorrow for further evaluation/follow up and to possibly obtain urine sample. Provided reassurances to family that their concerns were valid and heard tonight with assistance of [facility]. Helped daughter write down all interventions performed tonight and which scripts were sent to pharmacy, provided pt education. Advised that pt will be needing f/u care with several different specialists. Circled back with [facility] who stated he will notify care team of all concerns that were brought to him tonight. Went over red flags and no further questions or concerns at this time and family will await visit tomorrow. ...................... ...................... ...................... ...................... ...................... ...................... ......... Disposition: Denise Reyes MD [address], [place], [address], [place] [facility] 02/20/2022 23:04:28 07/27/2024 text/html CRC Nurse Triage [...] Chronic Kidney Disease PMH Reviewed at 07/27/2024 - : Allergies Reviewed at 07/27/2024:29 Comments: 53 y.o male complains of Dental [...] ...................... ...................... ...................... ...................... ...................... ...................... ......... Plastic Printer Note From Donna Leonardo: Sent to a call for a pt complaining of dental pain. SC[facility] arrives on scene, pt is alert and oriented, airway is patent. Pt appears to be in significant pain, swishing water in his mouth, rubbing his head, face, and right arm while lying in bed. Pt's primary language is Japanese. Language line used during visit. Pt states [...] unremarkable; Extremities: unremarkable; Skin: pink, warm, dry; [facility] consulted and pt is again advised we unfortunately cannot offer any pain medication as pt took Tylenol approx 1 hr prior to visit. Pt advised of option to go to ED/call 911 anytime. Red flags discussed. Pt has no further questions. ...................... ...................... ...................... ...................... ...................... ...................... ......... [facility] Consulted: Haylee Reyes ...................... ...................... ...................... ...................... ...................... ...................... ......... Disposition: Fulfilled Haylee Reyes MD [address] [facility], [place], [address], KINZA - KAY FULLER 07/27/2024 21:10:10
--- OUTSIDE RECORDS SUMMARY | 2025-01-05 20:17 | XMS_ITS ---
Author Organization [facility] Address [address] [place] [address] Care Team Providers Care Towing Pilot Name Role Phone Riya Olmos MD Primary Care Provider Transplant Episode Kidney Candidate [facility] ([place], [place]) [facility] waitlisted on 09/01/2024 Marked as Active on 12/01/2024 Kidney CoordinatorAnabell Arana RN Fax: N/A Email: N/A Scores Score Value Updated Exceptions/Reas ons CPRA 0 09/05/2024 EPTS (Calc) 62 01/05/2025 [place] Organ Diagnosis Organ Primary Contributory Kidney Diabetes Mellitus - Type II Care Team Name Role Phone Fax Email Anabell Arana RN Kidney Coordinator [phone] N/A N/A Riya Olmos MD Academic Primary Care Attending [phone] N/A N/A Cole Del Valle Referring Physician [phone] N/A Events Pre-Transplant Referred: 03/02/2024 Evaluation began: 04/07/2024 Committee: 08/24/2024 UNOS qualified: 03/03/2024 Center waitlisted: 09/01/2024 Dialysis History Dialysis History Start End Type Comments Center 03/03/2024 Home Hemodialysis M, , Th, F [facility] ([facility]) Dialysis Center Information Center Phone Fax Address [facility] ([facility]) [phone] [place] [id number]
--- OUTSIDE RECORDS SUMMARY | 2025-03-09 09:35 | XMS_ITS ---
Author Organization [facility] Address [address] [place] [address] Care Team Providers Care Loan Administrator Name Role Phone Riya Olmos MD Primary Care Provider Transplant Episode Kidney Candidate [facility] ([place], [place]) [facility] waitlisted on 09/01/2024 Marked as Active on 12/01/2024 Kidney CoordinatorAnabell Arana RN Fax: N/A Email: N/A Scores Score Value Updated Exceptions/Reas ons CPRA 0 09/05/2024 EPTS (Calc) 64 03/09/2025 [place] Organ Diagnosis Organ Primary Contributory Kidney Diabetes Mellitus - Type II Care Team Name Role Phone Fax Email Anabell Arana RN Kidney Coordinator [phone] N/A N/A Riya Olmos MD [facility] Primary Care Attending [phone] N/A N/A Cole Del Valle Referring Physician [phone] N/A Events Pre-Transplant Referred: 03/02/2024 Evaluation began: 04/07/2024 Committee: 08/24/2024 UNOS qualified: 03/03/2024 Center waitlisted: 09/01/2024 Appointments (02/06/2025 - 04/09/2025) When With Visit Type Description 04/06/2025 Transplant - Jacqueline Hcek Up Dialysis History Dialysis History Start End Type Comments Center 03/03/2024 Home Hemodialysis M, Tu, Th, F [facility] ([facility]) Dialysis Center Information Center Phone Fax Address [facility] ([facility]) [phone] [facility] [place] [address]
--- OUTSIDE RECORDS SUMMARY | 2025-03-09 09:35 | XMS_ITS | Clinical Summary ---
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 Name Role Phone Riya Olmos MD Primary [...] Encounters Date Type Department Care Team Description 01/25/2025 Telephone [facility] Transplant Department [address] [place] [phone] Anabell Arana RN 12/28/2024 Orders Only [facility] Transplant Department [address] [place] [phone] Irma Frias, RN ESRD (end stage renal disease) (Primary Dx); Pre-transplant evaluation for kidney transplant 12/28/2024 Telephone [facility] Transplant Department [address] [place] [phone] Irma Frias RN 12/23/2024 Orders Only [facility] Transplant Department [address] [place] [phone] Anabell Arana RN ESRD (end stage renal disease) (Primary Dx); Pre-transplant evaluation for kidney transplant 12/23/2024 Telephone [facility] Transplant Department [address] [place] [phone] Anabell Arana RN from Last 3 Months [...] Info) Description 04/06/2025 11:20 AM EST Follow-Up [facility] Renal Transplant [address] [place] [address] Saurabh Heck MD [address] [place] [address] 10/13/2025 1:45 PM EDT Appointment [facility] ACC Vascular Lab [address] [place] [address] 10/13/2025 3:00 PM EDT Follow-Up [facility] ACC Building Vascular Surgery [address] [place] [address] Feed Mixer Helper: Daphnie Camarena NP [address] [place] [address] Health Maintenance Due Date Last Done Comments 25 Hydroxy / Vitamin D 1968 Basic Metabolic Panel 1968 CKD: Referral to Nutrition 1968 Colonoscopy 1968 FOBT / Fit Test 1968 Hemoglobin A1C 1968 PTH 1968 Sigmoidoscopy 1968 Ophthalmology Exam [address] Lung Cancer Screening (Baseline) 2018 Zoster Vaccines (1 of 2) 2018 COVID-19 Vaccine ( - 2024-2 6 season) 2024 02/20/2021, 07/22/2020, 07/01/2020 Alcohol/Substance Use Screening 02/16/2025 Depression Screening and Follow-Up 02/16/2025 Social Drivers of Health [place] ual Screening 02/16/2025 Hemoglobin 04/07/2025 04/07/2024 Phosphorus 04/07/2025 04/07/2024 Cologuard [...] Additional history exists Procedures * Due to [place] state law, this organization might not be sharing negative HIV tests. Procedure Name Priority Date/Time Associated Diagnosis Comments HLA MONTHLY ANTIBODY IDENTIFICATION - CLASS I Routine 02/14/2025 1:58 PM EST Pre-transplant evaluation for kidney transplant ESRD (end stage renal disease) HLA MONTHYLY ANTIBODY IDENTIFICATION - CLASS II Routine 02/14/2025 1:58 PM EST Pre-transplant evaluation for kidney transplant ESRD (end stage renal disease) HLA MONTHYLY ANTIBODY IDENTIFICATION - CLASS II Routine 01/19/2025 12:00 AM EST ESRD (end stage renal disease) Pre-transplant evaluation for kidney transplant HLA MONTHLY ANTIBODY IDENTIFICATION - CLASS I Routine 01/19/2025 12:00 AM EST ESRD (end stage renal disease) Pre-transplant evaluation for kidney transplant HLA MONTHYLY ANTIBODY IDENTIFICATION - CLASS II Routine 12/27/2024 8:00 AM EST ESRD (end stage renal disease) Pre-transplant evaluation for kidney transplant HLA MONTHLY ANTIBODY IDENTIFICATION - CLASS I Routine 12/27/2024 8:00 AM EST ESRD (end stage renal disease) Pre-transplant evaluation for kidney transplant COLOGUARD Routine 11/30/2024 11:00 PM EDT Colon cancer screening ESRD (end stage renal disease) Pre-transplant evaluation for kidney transplant HEPATITIS C ANTIBODY W/REFLEX TO HCV RNA, [...] to Health Maintenance Results * Due to [place] state law, this organization might not be sharing negative HIV tests. * Cologuard (11/30/2024 11:00 PM EDT) Cologuard Negative Negative 12/12/2024 2:04 AM EDT [facility] (CLIA #:[id number]) Comment: The Cologuard (TM) test was performed [...] (Richard Beltran al, N Engl J Med 2014;370(14):1286- 1297) The normal value (reference range) for this assay is negative. COLOGUARD RE-SCREENING RECOMMENDATION: Periodic colorectal cancer screening is an important part of preventive healthcare for asymptomatic individuals at average risk for colorectal cancer. Following a negative Cologuard result, the [place] [employer] and U.S. Multi-Society Task Force screening guidelines recommend a Cologuard re-screening interval of 3 years. References: [place] [employer] Guideline for Colorectal Cancer Screening: https://www.cancer.org/cancer/hgusr-nnznxn-ksrtpu/ldokomaah-geoytcmqs-zloqrvv/ac s-rec ommendations.html.; Nii DK, Yadira CR, Siena ToussaintK, Colorectal Cancer Screening: Recommendations for Physicians and Patients from the U.S. Multi-Society Task Force on Colorectal Cancer Screening , Am J Gastroenterology 2017; 112:7085-5773. TEST DESCRIPTION: Composite algorithmic analysis of stool [...] (Richard Beltran al, N Engl J Med 2014;370(14):0663-9958.) Cologuard may produce a false negative or false positive result (no colorectal cancer or precancerous polyp present at colonoscopy follow up). A negative Cologuard test result does not guarantee the absence of CRC or advanced adenoma (pre-cancer). The current Cologuard screening interval is every 3 years. ([place] [employer] Society and U.S. Multi-Society Task Force). Cologuard performance data in a 10,000 patient pivotal study using colonoscopy as the reference method can be accessed at the following location: www.Zenring.Openbuilds/results. Additional description of the Cologuard test process, warnings and precautions can be found at www.colHatchtechrd.com. Stool specimen (specimen) Rectal route / Unknown 11/30/2024 11:00 PM EDT 12/01/2024 12:50 PM EDT us Fady Newman MD AMB LAB ORDERABLES Final Result [facility] (CLIA #:[id number]) [address] [place] [address], * (ABNORMAL) CBC Auto Differential (04/07/2024 11:40 AM EST) WBC 12.9(H) 3.8 - 10.8 10*3/uL 04/07/2024 12:05 PM EST [facility] RBC 3.83(L) 4.20 - 5.80 10*6/uL 04/07/2024 12:05 PM EST [facility] Hemoglobin 10.4(L) [...] - 36.0 g/dL 04/07/2024 12:05 PM EST [facility] RDW 14.1 11.0 - 15.0 % 04/07/2024 12:05 PM EST [facility] Platelets 384 140 - 400 10*3/uL 04/07/2024 12:05 PM EST [facility] MPV 9.9 7.5 - 12.5 fL 04/07/2024 12:05 PM EST [facility] Neutrophil % 70.4 % 04/07/2024 12:05 PM EST [facility] Immature Grans % 0.7 0.0 - 0.9 % 04/07/2024 12:05 PM EST [facility] Lymphocyte % 16.9 % 04/07/2024 12:05 PM EST [facility] Monocyte % 5.9 % 04/07/2024 12:05 PM EST [facility] Eosinophil % 5.0 % 04/07/2024 12:05 PM EST [facility] Basophil % 1.1 % 04/07/2024 12:05 PM EST [facility] Neutrophil # 9.08(H) 1.50 - 7.80 10*3/uL 04/07/2024 12:05 PM EST [facility] Immature Grans # 0.09(H) <=0.03 10*3/uL 04/07/2024 12:05 PM EST [facility] Lymphocyte # 2.20 0.85 - 3.90 10*3/uL 04/07/2024 12:05 PM EST [facility] Monocyte # 0.80 0.20 - 0.95 10*3/uL 04/07/2024 12:05 PM EST [facility] Eosinophil # 0.60(H) 0.02 - 0.50 10*3/uL 04/07/2024 12:05 PM EST [facility] Basophil # 0.10 0.00 - 0.20 10*3/uL 04/07/2024 12:05 PM EST [facility] nRBC % 0.0 /100 WBCs 04/07/2024 12:05 PM EST [facility] [place] [facility] nRBC # <0.01 <0.01 10*3/uL 04/07/2024 12:05 PM EST [facility] [place] [facility] Blood Structure of peripheral vein / Unknown Venipuncture / Unknown 04/07/2024 11:40 AM EST 04/07/2024 11:56 AM EST us Saurabh Heck MD LAB BLOOD ORDERABLES Final Result [facility] [address] [place] [address], [place] * Hepatitis C Antibody w/Reflex to PCR (04/07/2024 11:40 AM EST) Hepatitis C Antibody NON-REACT EMILIANO NON-REACT EMILIANO 04/07/2024 7:09 PM EST [facility] Comment: HCV antibody was non-reactive. There is no laboratory evidence of HCV infection. In most cases, no further action is required. However, if recent HCV exposure is suspected, a test for HCV RNA (test code 92698) is suggested. For additional information please refer to http://education.K94 Discoveries/faq/QHW54a1 (This link is being provided for informational/ educational purposes only.) Blood Structure of peripheral vein / Unknown Venipuncture / Unknown 04/07/2024 11:40 AM EST 04/07/2024 11:56 AM EST Narrative [facility] - 04/07/2024 7:09 PM EST [facility] Received Date: us Saurabh Heck MD LAB BLOOD ORDERABLES Final Result [facility] [address] [facility] [address] Floor, [place] [address], [place] [phone] [facility] [address] [facility] [address] Floor, [place] [address], [place] [phone] * Phosphorus (04/07/2024 11:40 AM EST) Phosphorus 4.4 2.5 - 4.5 mg/dL 04/07/2024 12:25 PM EST [facility] Blood Structure of peripheral vein / Unknown Venipuncture / Unknown 04/07/2024 11:40 AM EST 04/07/2024 11:56 AM EST us Saurabh Heck MD LAB BLOOD ORDERABLES Final Result [facility] [address] [place] [address], from Last 3 Months or Most Recently Relevant to Health Maintenance Insurance 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
== END 2025-01-05 00:01 ==
LOC: CF
PROVIDERS: PCP Internal Medicine; Visit Provider Internal Medicine Hypertension Specialist
DX: I12.0 Hypertensive chronic kidney disease with stage 5 chronic kidney disease or end stage renal disease (principal); N18.6 End stage renal disease; Z99.2 Dependence on renal dialysis; Z87.891 Personal history of nicotine dependence
CPT/HCPCS: 99212

== ENCOUNTER 2025-01-05 15:18 | Outpatient (AMB) | payer OTHER, SELFPAY ==
--- NOTE | 2025-01-05 15:23 | HO.NEPHOV ---
Vital Signs 01/05/25 15:26 Height 6 ft 2 in Weight 260 lb 4 oz BMI 33.4 BP 120/70 Blood Pressure Location Lt brachial Position Sitting Pulse 100 Pulse Source Pulse Oximeter Pulse Oximetry (%) 96 Oxygen Delivery Method Room Air Intake Visit Reasons: 1mon f/u w/labs Regional Safety Manager Required: Yes Regional Safety Manager Language: Industrial Registered Nurse Services: Regional Safety Manager Present Regional Safety Manager Name: Harshal [phone] Information Interpreted: clinical only Accompanied by: Spouse Allergies No Known Allergies Allergy (Verified 01/05/25 15:25) [facility] Medical History (Updated 12/12/24 @ 00:06 by Riya Olmos MD) Hx of completed stroke Diabetic infection of right foot Cellulitis of right foot Intermittent lightheadedness History of CVA with residual deficit Left cervical lymphadenopathy Obesity (BMI 30-39.9) Normocytic normochromic anemia COPD (chronic obstructive pulmonary disease) Smoker unmotivated to quit RODGER (obstructive sleep apnea) Generalized anxiety disorder 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 Essential hypertension Allergic rhinitis Mixed dyslipidemia Amputation, toe, traumatic Vitamin D deficiency Diabetes mellitus with neuropathy Diabetes mellitus with hyperglycemia, with long-term current use of insulin Osteoarthritis Fibromyalgia Spondylosis of cervical spine Surgical History History of foot surgery Family History Father HTN (hypertension) Diabetes Mental health disorder Mother HTN (hypertension) Brother Stroke Social History Household Members: Spouse Housing: House Do you presently have visiting nurse or other home services: No Alcohol intake: never Patient Tobacco Use Status: Former Tobacco user Cigarette Packs Per Day: 1 Cigarettes Per Day: 20.0 Years Smoked: 35 e-Cigarette/Vaping Use: Never Used Second Hand Smoke Exposure: No service: No Current occupational status: disabled Cognitive needs: No Hearing needs: No Vision needs: No Physical Exam Vital Signs: Last Vital Signs Pulse 100 01/05/25 15:26 BP 120/70 01/05/25 15:26 Pulse Ox 96 01/05/25 15:26 Oxygen Delivery Method Room Air 01/05/25 15:26 BMI result Body Mass Index 33.4 Results Reviewed Nephrology Results: Renal US 01/21/23 Assessment & Plan Assessment & Plan (1) ESRD (end stage renal disease): Code(s): N18.6 - End stage renal disease Category: Medical Plan see dialysis emr Coding Level of Care Code Global (65820) Diagnoses ESRD (end stage renal disease) N18.6
[2025-01-05 15:26] VITALS: BP 120/70; PULSE 100; O2SAT 96; BMI 33.4
== END 2025-01-05 15:37 | disposition home or self-care (01) ==
LOC: HO.HKA 15:19
PROVIDERS: PCP Internal Medicine; Visit Provider Internal Medicine Hypertension Specialist
DX: N18.6 End stage renal disease (principal)
CPT/HCPCS: 99024